=== PATIENT | female | born 1960 | race Caucasian/White ===

== ENCOUNTER → 2017-09-23 11:29 | Outpatient (CLI) | payer MEDICARE, SELFPAY ==
[2017-09-23 14:18] LABS: Hematocrit 39.7 % (37-47); Hemoglobin 13.2 g/dl (12.0-15.0); Mean Corp Hgb Conc 33.2 g/gl (32-36); Mean Corpuscular Hgb 31.1 pg (27.0-32.0); Mean Corpuscular Volume 93.6 fL (81-99); Mean Platelet Vol. 10.8 fl (6.2-12.0); Platelet Count 219 K/mm3 (150-450); RBC Distribution Width CV 13.3 % (11.6-14.6); RBC Distribution Width SD 44.1 fl (35.1-43.9); Red Blood Count 4.24 M/mm3 (4.2-5.4)
[2017-09-23 14:19] LABS: Scan Indicated on CBC? Y/N NO
[2017-09-23 14:28] LABS: Albumin, Serum 3.6 g/dL (3.2-5.0); BUN 15 mg/dL (7-18); BUN/Creat Ratio 12.9 RATIO (10-20); Calcium,Total 8.9 mg/dL (8.5-10.1); Chloride 104 mmol/L (98-107); Creatinine, Serum 1.16 mg/dL (0.55-1.02); EST Glomerular Filtration Rate 52 mL/min (>60); Est Glom Filt Rate - Afr Amer 62 mL/min (>60); Glucose 151 mg/dL (74-106); Phosphorus 2.9 mg/dL (2.5-4.9); Potassium 4.1 mmol/L (3.5-5.1); Sodium Level 140 mmol/L (136-145)
[2017-09-23 14:37] LABS: Vitamin D,25 Hydroxy 20.3 ng/mL (29.95-100.01)
[2017-09-23 14:43] LABS: Microalbumin,Random Urine 6.3 mg/L (NO RANGE EST.); Microalbumin:Creatinine Ratio 4.2 mg/g CRE (<30 mg/g CRE)
[2017-09-23 15:02] LABS: PTHIN 77.6 pg/mL (18.4-80.1)
== END ==
PROVIDERS: Family Provider Nurse Practitioner; PCP Nurse Practitioner; Visit Provider Internal Medicine Nephrology
DX: N18.3 Chronic kidney disease, stage 3 (moderate) (principal)
CPT/HCPCS: 36415; 80069; 82043; 82306; 82570; 83970; 85027

== ENCOUNTER → 2017-11-04 08:59 | Outpatient (CLI) | payer MEDICARE, SELFPAY ==
[2017-11-04 10:57] LABS: Hemoglobin A1c 6.1 % (4.2-6.3)
[2017-11-04 10:58] LABS: Cholesterol 180 mg/dL (200); High Density Lipoprotein 59 mg/dL; T4 Free Direct 1.17 ng/dL (0.76-1.46); Triglycerides 64 mg/dL; Very Low Density Lipoprotein 13 mg/dL (5-40)
== END ==
PROVIDERS: Family Provider Internal Medicine; PCP Internal Medicine; Visit Provider Internal Medicine
DX: E03.9 Hypothyroidism, unspecified (principal); E78.00 Pure hypercholesterolemia, unspecified; R73.03 Prediabetes
CPT/HCPCS: 36415; 80061; 83036; 84439; 84443

== ENCOUNTER → 2017-11-22 08:45 | Outpatient (CLI) | payer MEDICARE, SELFPAY | PROVIDERS: Family Provider Internal Medicine; PCP Internal Medicine; Visit Provider Surgery | DX: Z53.9 Procedure and treatment not carried out, unspecified reason (principal) ==

== ENCOUNTER → 2017-12-19 20:24 | Outpatient (CLI) | payer MEDICARE, SELFPAY ==
[2017-12-23 12:30] LABS: HPV APTIMA, High Risk Negative (Negative)
== END ==
PROVIDERS: Family Provider Internal Medicine; PCP Internal Medicine; Referring Provider Obstetrics & Gynecology; Visit Provider Obstetrics & Gynecology
DX: Z12.4 Encounter for screening for malignant neoplasm of cervix (principal)
CPT/HCPCS: 87624; 88175; G0145

== ENCOUNTER → 2018-05-16 15:48 | Outpatient (CLI) | payer MEDICARE, SELFPAY ==
[2018-03-21 14:07] VITALS: BMI 58.2
[2018-05-16 17:11] LABS: EXAGEN MAILED SPECIMEN
[2018-05-16 17:44] LABS: Color, Urine Yellow (Yellow); Glucose, Dipstick Normal (Normal); Ketone-Dipstick Negative (Negative); Leukocyte Esterase-Dipstick 25 /ul (Negative); Nitrite-Dipstick Negative (Negative); Occult Blood-Urine 25 /ul (Negative); Protein-Dipstick 15 mg/dl (Negative); Urine Bilirubin Dipstick Negative (Negative); Urine Clarity Clear (Clear); Urine Urobilinogen Normal (Normal)
[2018-05-16 17:49] LABS: Protein, Urine (Random) 7.9 mg/dL (<11.9); Protein:Creat Ratio 91 mg/g CRE (0-200)
[2018-05-16 18:04] LABS: Absolute Lymphocyte Count 1.77 X10^3/ul (0.83-4.51); Absolute Neutrophil Count 3.9 X10^3/uL (2.0-7.7); Basophil# 0.03 X10^3/uL; Basophil% 0.5 % (0-1); Eosinophil# 0.17 X10^3/uL; Eosinophils% 2.7 % (0-5); Hematocrit 40.6 % (37-47); Hemoglobin 13.1 g/dl (12.0-15.0); Lymphocyte # 1.77 X10^3/ul (4.0); Lymphocyte % 28.5 % (19-41); Mean Corp Hgb Conc 32.3 g/gl (32-36); Mean Corpuscular Hgb 30.5 pg (27.0-32.0); Mean Corpuscular Volume 94.4 fL (81-99); Mean Platelet Vol. 11.2 fl (6.2-12.0); Monocyte# 0.35 X10^3/uL; Monocyte% 5.6 % (0-10); Neutrophil # 3.87 X10^3/uL (2.7-7.7); Neutrophil % 62.5 % (47-70); Platelet Count 211 K/mm3 (150-450); RBC Distribution Width CV 13.5 % (11.6-14.6); White Blood Count 6.2 K/mm3 (4.4-11.0)
[2018-05-16 18:14] LABS: AST(SGOT) 24 U/L (15-37); Alanine Aminotransfer ALT/SGPT 35 U/L (13-56); Albumin, Serum 3.7 g/dL (3.2-5.0); Alkaline Phosphatase 107 U/L (45-117); Anion Gap 8 (5-15); BUN 19 mg/dL (7-18); BUN/Creat Ratio 17.9 RATIO (10-20); Calcium,Total 8.8 mg/dL (8.5-10.1); Chloride 105 mmol/L (98-107); Creatinine, Serum 1.06 mg/dL (0.55-1.02); EST Glomerular Filtration Rate 57 mL/min (>60); Est Glom Filt Rate - Afr Amer 69 mL/min (>60); Globulin 3.7 g/dL (2.2-4.2); Glucose 97 mg/dL (74-106); Potassium 3.8 mmol/L (3.5-5.1); Protein, Total 7.4 g/dL (6.4-8.2); Sodium Level 140 mmol/L (136-145)
[2018-05-16 18:19] LABS: POSITIVE COUNT NO; POSITIVE DIFFERENTIAL NO; POSITIVE MORPHOLOGY NO
[2018-05-19 16:59] LABS: HEPATITIS B SURFACE AG Negative (Negative); Hep B Surface Antibodies Non Reactive (.); Hep C Antibodies <0.1 s/co ratio (0.0-0.9)
== END ==
PROVIDERS: Family Provider Internal Medicine; PCP Internal Medicine; Referring Provider Internal Medicine Rheumatology; Visit Provider Internal Medicine Rheumatology
DX: M06.4 Inflammatory polyarthropathy (principal); R76.8 Other specified abnormal immunological findings in serum; M17.0 Bilateral primary osteoarthritis of knee; M51.36 Other intervertebral disc degeneration, lumbar region; M47.897 Other spondylosis, lumbosacral region; M79.7 Fibromyalgia; Z96.89 Presence of other specified functional implants
CPT/HCPCS: 36415; 80053; 81002; 82570; 84156; 85025; 86706; 86803; 87340

== ENCOUNTER → 2018-09-05 15:17 | Outpatient (CLI) | payer MEDICARE, SELFPAY ==
[2018-06-08 10:48] VITALS: BMI 58.2
[2018-09-05 17:27] LABS: Absolute Lymphocyte Count 1.95 X10^3/uL (0.83-4.51); Absolute Neutrophil Count 3.2 X10^3/uL (2.0-7.7); Basophil# 0.06 X10^3/uL; Eosinophil# 0.21 X10^3/uL; Eosinophils% 3.6 % (0-5); Hematocrit 39.8 % (37-47); Hemoglobin 13.1 g/dL (12.0-15.0); Lymphocyte # 1.95 X10^3/ul (4.0); Lymphocyte % 33.7 % (19-41); Mean Corp Hgb Conc 32.9 g/dL (32-36); Mean Corpuscular Hgb 30.3 pg (27.0-32.0); Mean Corpuscular Volume 92.1 fL (81-99); Mean Platelet Vol. 10.9 fl (6.2-12.0); Monocyte# 0.38 X10^3/uL; Monocyte% 6.6 % (0-10); NRBC Flagged by Analyzer 0 % (0-5); Neutrophil # 3.17 X10^3/uL (2.7-7.7); Neutrophil % 54.8 % (47-70); Platelet Count 229 K/mm3 (150-450); RBC Distribution Width CV 13.1 % (11.6-14.6); RBC Distribution Width SD 44.5 fl (35.1-43.9); Red Blood Count 4.32 M/mm3 (4.2-5.4); White Blood Count 5.8 K/mm3 (4.4-11.0)
[2018-09-05 18:09] LABS: AST(SGOT) 15 U/L (15-37); Alanine Aminotransfer ALT/SGPT 27 U/L (13-56); Albumin, Serum 3.7 g/dL (3.2-5.0); Alkaline Phosphatase 112 U/L (45-117); Anion Gap 10 (5-15); BUN 19 mg/dL (7-18); BUN/Creat Ratio 17.3 RATIO (10-20); Calcium,Total 9.4 mg/dL (8.5-10.1); Chloride 105 mmol/L (98-107); EST Glomerular Filtration Rate 55 mL/min (>60); Est Glom Filt Rate - Afr Amer 66 mL/min (>60); Globulin 3.6 g/dL (2.2-4.2); Glucose 100 mg/dL (74-106); Potassium 3.9 mmol/L (3.5-5.1); Protein, Total 7.3 g/dL (6.4-8.2); Sodium Level 141 mmol/L (136-145)
== END ==
PROVIDERS: Family Provider Internal Medicine; PCP Internal Medicine; Referring Provider Internal Medicine Rheumatology; Visit Provider Internal Medicine Rheumatology
DX: M06.4 Inflammatory polyarthropathy (principal); R76.8 Other specified abnormal immunological findings in serum; M79.7 Fibromyalgia; M17.0 Bilateral primary osteoarthritis of knee; M21.40 Flat foot [pes planus] (acquired), unspecified foot; N18.9 Chronic kidney disease, unspecified; K76.0 Fatty (change of) liver, not elsewhere classified; E03.9 Hypothyroidism, unspecified; M51.36 Other intervertebral disc degeneration, lumbar region; M47.897 Other spondylosis, lumbosacral region; Z96.89 Presence of other specified functional implants
CPT/HCPCS: 36415; 80053; 85025

== ENCOUNTER → 2019-01-01 11:08 | Outpatient (CLI) | payer MEDICARE, SELFPAY ==
[2018-06-08 10:48] VITALS: BMI 58.2
[2019-01-01 12:33] LABS: Absolute Lymphocyte Count 1.59 X10^3/uL (0.83-4.51); Absolute Neutrophil Count 3.8 X10^3/uL (2.0-7.7); Basophil# 0.05 X10^3/uL; Basophil% 0.8 % (0-1); Eosinophil# 0.19 X10^3/uL; Eosinophils% 3.2 % (0-5); Hematocrit 41.3 % (37-47); Hemoglobin 13.3 g/dL (12.0-15.0); Lymphocyte # 1.59 X10^3/ul (4.0); Lymphocyte % 26.5 % (19-41); Mean Corp Hgb Conc 32.2 g/dL (32-36); Mean Corpuscular Hgb 30.6 pg (27.0-32.0); Mean Corpuscular Volume 94.9 fL (81-99); Mean Platelet Vol. 10.5 fl (6.2-12.0); Monocyte# 0.38 X10^3/uL; Monocyte% 6.3 % (0-10); NRBC Flagged by Analyzer 0 % (0-5); Neutrophil # 3.77 X10^3/uL (2.7-7.7); Neutrophil % 62.9 % (47-70); Platelet Count 229 K/mm3 (150-450); RBC Distribution Width CV 13.1 % (11.6-14.6); RBC Distribution Width SD 45.6 fl (35.1-43.9); Red Blood Count 4.35 M/mm3 (4.2-5.4)
[2019-01-01 13:14] LABS: AST(SGOT) 19 U/L (15-37); Alanine Aminotransfer ALT/SGPT 25 U/L (13-56); Albumin, Serum 3.5 g/dL (3.2-5.0); Alkaline Phosphatase 101 U/L (45-117); Anion Gap 6 (5-15); BUN 19 mg/dL (7-18); BUN/Creat Ratio 16.4 RATIO (10-20); Calcium,Total 8.9 mg/dL (8.5-10.1); Chloride 105 mmol/L (98-107); Creatinine, Serum 1.16 mg/dL (0.55-1.02); EST Glomerular Filtration Rate 51 mL/min (>60); Est Glom Filt Rate - Afr Amer 62 mL/min (>60); Globulin 3.5 g/dL (2.2-4.2); Glucose 132 mg/dL (74-106); Sodium Level 142 mmol/L (136-145)
== END ==
PROVIDERS: Family Provider Internal Medicine; PCP Internal Medicine; Referring Provider Internal Medicine Rheumatology; Visit Provider Internal Medicine Rheumatology
DX: M06.4 Inflammatory polyarthropathy (principal); R76.8 Other specified abnormal immunological findings in serum; M79.7 Fibromyalgia; M17.0 Bilateral primary osteoarthritis of knee; M21.40 Flat foot [pes planus] (acquired), unspecified foot; N18.9 Chronic kidney disease, unspecified; K76.0 Fatty (change of) liver, not elsewhere classified; E03.9 Hypothyroidism, unspecified; M51.36 Other intervertebral disc degeneration, lumbar region; M47.897 Other spondylosis, lumbosacral region; Z96.89 Presence of other specified functional implants
CPT/HCPCS: 36415; 80053; 85025

== ENCOUNTER → 2019-02-27 11:13 | Outpatient (CLI) | payer MEDICARE, SELFPAY ==
[2018-06-08 10:48] VITALS: BMI 58.2
[2019-02-27 12:24] LABS: Absolute Lymphocyte Count 1.95 X10^3/uL (0.83-4.51); Absolute Neutrophil Count 4.1 X10^3/uL (2.0-7.7); Basophil# 0.06 X10^3/uL; Basophil% 0.9 % (0-1); Hematocrit 40.6 % (37-47); Hemoglobin 13.2 g/dL (12.0-15.0); Lymphocyte # 1.95 X10^3/ul (4.0); Lymphocyte % 29.4 % (19-41); Mean Corp Hgb Conc 32.5 g/dL (32-36); Mean Corpuscular Hgb 31.1 pg (27.0-32.0); Mean Corpuscular Volume 95.8 fL (81-99); Mean Platelet Vol. 10.4 fl (6.2-12.0); Monocyte# 0.33 X10^3/uL; NRBC Flagged by Analyzer 0 % (0-5); Neutrophil # 4.06 X10^3/uL (2.7-7.7); Neutrophil % 61.2 % (47-70); Platelet Count 236 K/mm3 (150-450); RBC Distribution Width CV 14.3 % (11.6-14.6); RBC Distribution Width SD 49.6 fl (35.1-43.9); Red Blood Count 4.24 M/mm3 (4.2-5.4); White Blood Count 6.6 K/mm3 (4.4-11.0)
[2019-02-27 12:52] LABS: AST(SGOT) 18 U/L (15-37); Alanine Aminotransfer ALT/SGPT 32 U/L (13-56); Albumin, Serum 3.7 g/dL (3.2-5.0); Alkaline Phosphatase 107 U/L (45-117); Anion Gap 3 (5-15); BUN 23 mg/dL (7-18); BUN/Creat Ratio 18.4 RATIO (10-20); Calcium,Total 8.7 mg/dL (8.5-10.1); Chloride 104 mmol/L (98-107); Creatinine, Serum 1.25 mg/dL (0.55-1.02); EST Glomerular Filtration Rate 47 mL/min (>60); Est Glom Filt Rate - Afr Amer 57 mL/min (>60); Globulin 3.6 g/dL (2.2-4.2); Glucose 113 mg/dL (74-106); Potassium 3.9 mmol/L (3.5-5.1); Protein, Total 7.3 g/dL (6.4-8.2); Sodium Level 139 mmol/L (136-145)
== END ==
PROVIDERS: Family Provider Internal Medicine; PCP Internal Medicine; Referring Provider Internal Medicine Rheumatology; Visit Provider Internal Medicine Rheumatology
DX: M06.4 Inflammatory polyarthropathy (principal); R76.8 Other specified abnormal immunological findings in serum; M79.7 Fibromyalgia; M17.0 Bilateral primary osteoarthritis of knee; M21.40 Flat foot [pes planus] (acquired), unspecified foot; N18.9 Chronic kidney disease, unspecified; K76.0 Fatty (change of) liver, not elsewhere classified; E03.9 Hypothyroidism, unspecified; M51.36 Other intervertebral disc degeneration, lumbar region; M47.897 Other spondylosis, lumbosacral region; Z96.89 Presence of other specified functional implants
CPT/HCPCS: 36415; 80053; 85025

== ENCOUNTER → 2019-05-09 14:29 | Outpatient (CLI) | payer MEDICARE, SELFPAY ==
[2018-06-08 10:48] VITALS: BMI 58.2
[2019-05-09 15:46] LABS: Absolute Lymphocyte Count 2.09 X10^3/uL (0.83-4.51); Absolute Neutrophil Count 3.5 X10^3/uL (2.0-7.7); Basophil# 0.05 X10^3/uL; Basophil% 0.8 % (0-1); Eosinophils% 3.2 % (0-5); Hematocrit 40.3 % (37-47); Lymphocyte # 2.09 X10^3/ul (4.0); Lymphocyte % 33.2 % (19-41); Mean Corp Hgb Conc 32.3 g/dL (32-36); Mean Corpuscular Hgb 31.3 pg (27.0-32.0); Mean Corpuscular Volume 96.9 fL (81-99); Mean Platelet Vol. 10.9 fl (6.2-12.0); Monocyte# 0.41 X10^3/uL; Monocyte% 6.5 % (0-10); NRBC Flagged by Analyzer 0 % (0-5); Neutrophil # 3.53 X10^3/uL (2.7-7.7); Platelet Count 221 K/mm3 (150-450); RBC Distribution Width CV 13.1 % (11.6-14.6); RBC Distribution Width SD 46.5 fl (35.1-43.9); Red Blood Count 4.16 M/mm3 (4.2-5.4); White Blood Count 6.3 K/mm3 (4.4-11.0)
[2019-05-09 16:11] LABS: AST(SGOT) 20 U/L (15-37); Alanine Aminotransfer ALT/SGPT 27 U/L (13-56); Albumin, Serum 3.8 g/dL (3.2-5.0); Alkaline Phosphatase 104 U/L (45-117); Anion Gap 3 (5-15); BUN 17 mg/dL (7-18); BUN/Creat Ratio 15.3 RATIO (10-20); Calcium,Total 8.7 mg/dL (8.5-10.1); Chloride 105 mmol/L (98-107); Creatinine, Serum 1.11 mg/dL (0.55-1.02); EST Glomerular Filtration Rate 54 mL/min (>60); Est Glom Filt Rate - Afr Amer 65 mL/min (>60); Globulin 3.8 g/dL (2.2-4.2); Glucose 99 mg/dL (74-106); Potassium 3.8 mmol/L (3.5-5.1); Protein, Total 7.6 g/dL (6.4-8.2); Sodium Level 140 mmol/L (136-145)
== END ==
PROVIDERS: PCP Internal Medicine; Referring Provider Internal Medicine Rheumatology; Visit Provider Internal Medicine Rheumatology
DX: M06.4 Inflammatory polyarthropathy (principal); R76.8 Other specified abnormal immunological findings in serum; M79.7 Fibromyalgia; M17.0 Bilateral primary osteoarthritis of knee; M21.40 Flat foot [pes planus] (acquired), unspecified foot; N18.9 Chronic kidney disease, unspecified; K76.0 Fatty (change of) liver, not elsewhere classified; E03.9 Hypothyroidism, unspecified; M51.36 Other intervertebral disc degeneration, lumbar region; M47.897 Other spondylosis, lumbosacral region; Z96.89 Presence of other specified functional implants
CPT/HCPCS: 36415; 80053; 85025

== ENCOUNTER → 2019-07-12 16:19 | Outpatient (CLI) | payer MEDICARE, SELFPAY ==
[2019-07-12 15:15] VITALS: BMI 58.2
[2019-07-12 17:28] LABS: Microalbumin,Random Urine < 5.0 mg/L (NO RANGE EST.)
[2019-07-12 17:30] LABS: Cholesterol 213 mg/dL (200); High Density Lipoprotein 69 mg/dL; Thyroid Stim Hormone (TSH) 7.48 uIU/mL (0.358-3.74); Triglycerides 113 mg/dL; Very Low Density Lipoprotein 23 mg/dL (5-40)
== END ==
PROVIDERS: PCP Internal Medicine; Referring Provider Internal Medicine; Visit Provider Internal Medicine
DX: E11.9 Type 2 diabetes mellitus without complications (principal); E03.9 Hypothyroidism, unspecified
CPT/HCPCS: 80061; 82043; 82570; 84443

== ENCOUNTER → 2019-09-12 20:00 | Outpatient (CLI) | payer MEDICARE, SELFPAY ==
[2019-08-08 13:06] VITALS: BMI 58.2
== END ==
PROVIDERS: PCP Internal Medicine; Visit Provider Internal Medicine
DX: G47.33 Obstructive sleep apnea (adult) (pediatric) (principal); G47.10 Hypersomnia, unspecified
CPT/HCPCS: 95810

== ENCOUNTER → 2019-10-17 10:52 | Outpatient (CLI) | payer MEDICARE, SELFPAY ==
[2019-09-28 08:53] VITALS: BMI 61.4
[2019-10-17 12:37] LABS: Absolute Lymphocyte Count 1.66 X10^3/uL (0.83-4.51); Absolute Neutrophil Count 3.7 X10^3/uL (2.0-7.7); Basophil# 0.05 X10^3/uL; Basophil% 0.8 % (0-1); Eosinophil# 0.26 X10^3/uL; Eosinophils% 4.3 % (0-5); Hematocrit 39.6 % (37-47); Hemoglobin 13.2 g/dL (12.0-15.0); Lymphocyte # 1.66 X10^3/ul (4.0); Lymphocyte % 27.2 % (19-41); Mean Corp Hgb Conc 33.3 g/dL (32-36); Mean Corpuscular Hgb 31.4 pg (27.0-32.0); Mean Corpuscular Volume 94.3 fL (81-99); Mean Platelet Vol. 10.6 fl (6.2-12.0); Monocyte# 0.38 X10^3/uL; Monocyte% 6.2 % (0-10); NRBC Flagged by Analyzer 0 % (0-5); Neutrophil # 3.73 X10^3/uL (2.7-7.7); Neutrophil % 61.2 % (47-70); Platelet Count 223 K/mm3 (150-450); RBC Distribution Width CV 13.2 % (11.6-14.6); RBC Distribution Width SD 45.1 fl (35.1-43.9); White Blood Count 6.1 K/mm3 (4.4-11.0)
[2019-10-17 13:14] LABS: AST(SGOT) 16 U/L (15-37); Alanine Aminotransfer ALT/SGPT 27 U/L (13-56); Albumin, Serum 3.7 g/dL (3.2-5.0); Alkaline Phosphatase 100 U/L (45-117); Anion Gap 5 (5-15); BUN 19 mg/dL (7-18); BUN/Creat Ratio 17.6 RATIO (10-20); Chloride 107 mmol/L (98-107); Creatinine, Serum 1.08 mg/dL (0.55-1.02); EST Glomerular Filtration Rate 56 mL/min (>60); Est Glom Filt Rate - Afr Amer 67 mL/min (>60); Globulin 3.6 g/dL (2.2-4.2); Glucose 134 mg/dL (74-106); Potassium 3.6 mmol/L (3.5-5.1); Protein, Total 7.3 g/dL (6.4-8.2); Sodium Level 141 mmol/L (136-145)
== END ==
PROVIDERS: PCP Internal Medicine; Referring Provider Internal Medicine Rheumatology; Visit Provider Internal Medicine Rheumatology
DX: M06.4 Inflammatory polyarthropathy (principal); R76.8 Other specified abnormal immunological findings in serum; M79.7 Fibromyalgia; M17.0 Bilateral primary osteoarthritis of knee; M21.40 Flat foot [pes planus] (acquired), unspecified foot; N18.9 Chronic kidney disease, unspecified; K76.0 Fatty (change of) liver, not elsewhere classified; E03.9 Hypothyroidism, unspecified
CPT/HCPCS: 36415; 80053; 85025

== ENCOUNTER → 2020-01-10 10:14 | Outpatient (CLI) | payer MEDICARE, SELFPAY ==
[2020-01-10 12:15] LABS: Absolute Lymphocyte Count 1.45 X10^3/uL (0.83-4.51); Basophil# 0.06 X10^3/uL; Eosinophil# 0.23 X10^3/uL; Eosinophils% 3.8 % (0-5); Hematocrit 41.2 % (37-47); Hemoglobin 13.3 g/dL (12.0-15.0); Lymphocyte # 1.45 X10^3/ul (4.0); Lymphocyte % 23.9 % (19-41); Mean Corp Hgb Conc 32.3 g/dL (32-36); Mean Corpuscular Hgb 30.5 pg (27.0-32.0); Mean Corpuscular Volume 94.5 fL (81-99); Mean Platelet Vol. 10.9 fl (6.2-12.0); Monocyte# 0.28 X10^3/uL; Monocyte% 4.6 % (0-10); NRBC Flagged by Analyzer 0 % (0-5); Neutrophil # 4.03 X10^3/uL (2.7-7.7); Neutrophil % 66.5 % (47-70); Platelet Count 237 K/mm3 (150-450); RBC Distribution Width CV 13.1 % (11.6-14.6); RBC Distribution Width SD 44.9 fl (35.1-43.9); Red Blood Count 4.36 M/mm3 (4.2-5.4); White Blood Count 6.1 K/mm3 (4.4-11.0)
[2020-01-10 12:40] LABS: ALB/GLOB Ratio 1.1 RATIO (0.9-2.4); AST(SGOT) 16 U/L (15-37); Alanine Aminotransfer ALT/SGPT 26 U/L (13-56); Albumin, Serum 3.8 g/dL (3.2-5.0); Alkaline Phosphatase 109 U/L (45-117); Anion Gap 6 (5-15); BUN 18 mg/dL (7-18); BUN/Creat Ratio 17.1 RATIO (10-20); Calcium,Total 8.8 mg/dL (8.5-10.1); Chloride 106 mmol/L (98-107); Creatinine, Serum 1.05 mg/dL (0.55-1.02); EST Glomerular Filtration Rate 57 mL/min (>60); Est Glom Filt Rate - Afr Amer 69 mL/min (>60); Globulin 3.5 g/dL (2.2-4.2); Glucose 145 mg/dL (74-106); Potassium 3.9 mmol/L (3.5-5.1); Protein, Total 7.3 g/dL (6.4-8.2); Sodium Level 139 mmol/L (136-145)
== END ==
PROVIDERS: PCP Internal Medicine; Referring Provider Internal Medicine Rheumatology; Visit Provider Internal Medicine Rheumatology
DX: M06.4 Inflammatory polyarthropathy (principal); M79.7 Fibromyalgia; M17.0 Bilateral primary osteoarthritis of knee; M21.40 Flat foot [pes planus] (acquired), unspecified foot; N18.9 Chronic kidney disease, unspecified; K76.0 Fatty (change of) liver, not elsewhere classified; E03.9 Hypothyroidism, unspecified; M51.36 Other intervertebral disc degeneration, lumbar region; M47.897 Other spondylosis, lumbosacral region; Z96.89 Presence of other specified functional implants
CPT/HCPCS: 36415; 80053; 85025

== ENCOUNTER → 2020-06-04 10:35 | Outpatient (CLI) | payer MEDICARE, SELFPAY ==
[2020-06-04 09:58] VITALS: BMI 62.5
[2020-06-04 12:50] LABS: Absolute Lymphocyte Count 2.34 X10^3/uL (0.83-4.51); Absolute Neutrophil Count 4.3 X10^3/uL (2.0-7.7); Basophil# 0.05 X10^3/uL; Basophil% 0.7 % (0-1); Eosinophil# 0.31 X10^3/uL; Eosinophils% 4.1 % (0-5); Hematocrit 43.5 % (37-47); Hemoglobin 13.9 g/dL (12.0-15.0); Lymphocyte # 2.34 X10^3/ul (0.83-4.51); Mean Corpuscular Volume 96.9 fL (81-99); Mean Platelet Vol. 11.3 fl (6.2-12.0); Monocyte# 0.53 X10^3/uL; NRBC Flagged by Analyzer 0 % (0-5); Neutrophil % 56.8 % (47-70); Platelet Count 256 K/mm3 (150-450); RBC Distribution Width CV 13.3 % (11.6-14.6); RBC Distribution Width SD 47.7 fl (35.1-43.9); Red Blood Count 4.49 M/mm3 (4.2-5.4); White Blood Count 7.6 K/mm3 (4.4-11.0)
[2020-06-04 13:17] LABS: AST(SGOT) 19 U/L (15-37); Alanine Aminotransfer ALT/SGPT 33 U/L (13-56); Albumin, Serum 3.9 g/dL (3.2-5.0); Alkaline Phosphatase 121 U/L (45-117); Anion Gap 3 (5-15); BUN 19 mg/dL (7-18); BUN/Creat Ratio 17.3 RATIO (10-20); Calcium,Total 8.9 mg/dL (8.5-10.1); Chloride 105 mmol/L (98-107); Cholesterol 208 mg/dL (200); EST Glomerular Filtration Rate 54 mL/min (>60); Est Glom Filt Rate - Afr Amer 66 mL/min (>60); Globulin 3.9 g/dL (2.2-4.2); Glucose 121 mg/dL (74-106); High Density Lipoprotein 73 mg/dL; Potassium 3.6 mmol/L (3.5-5.1); Protein, Total 7.8 g/dL (6.4-8.2); Sodium Level 139 mmol/L (136-145); Thyroid Stim Hormone (TSH) 1.81 uIU/mL (0.358-3.74); Triglycerides 143 mg/dL; Very Low Density Lipoprotein 29 mg/dL (5-40)
[2020-06-04 13:23] LABS: Microalbumin,Random Urine 7.8 mg/L (NO RANGE EST.); Microalbumin:Creatinine Ratio 4.7 mg/g CRE (<30 mg/g CRE)
== END ==
PROVIDERS: PCP Internal Medicine; Referring Provider Nurse Practitioner Family; Visit Provider Nurse Practitioner Family
DX: E11.22 Type 2 diabetes mellitus with diabetic chronic kidney disease (principal); N18.30 Chronic kidney disease, stage 3 unspecified; E03.9 Hypothyroidism, unspecified; E66.01 Morbid (severe) obesity due to excess calories
CPT/HCPCS: 36415; 80053; 80061; 82043; 82570; 84443; 85025

== ENCOUNTER → 2020-08-27 12:15 | Outpatient (CLI) | payer MEDICARE, SELFPAY ==
[2020-06-04 09:58] VITALS: BMI 62.5
[2020-08-27 15:03] LABS: Absolute Lymphocyte Count 2.27 X10^3/uL (0.83-4.51); Absolute Neutrophil Count 4.5 X10^3/uL (2.0-7.7); Basophil# 0.07 X10^3/uL; Basophil% 0.9 % (0-1); Eosinophil# 0.27 X10^3/uL; Eosinophils% 3.5 % (0-5); Hematocrit 42.9 % (37-47); Hemoglobin 13.8 g/dL (12.0-15.0); Lymphocyte # 2.27 X10^3/ul (0.83-4.51); Lymphocyte % 29.7 % (19-41); Mean Corp Hgb Conc 32.2 g/dL (32-36); Mean Corpuscular Hgb 29.7 pg (27.0-32.0); Mean Corpuscular Volume 92.3 fL (81-99); Mean Platelet Vol. 10.9 fl (6.2-12.0); Monocyte# 0.52 X10^3/uL; Monocyte% 6.8 % (0-10); NRBC Flagged by Analyzer 0 % (0-5); Neutrophil # 4.51 X10^3/uL (2.7-7.7); Platelet Count 245 K/mm3 (150-450); RBC Distribution Width CV 13.2 % (11.6-14.6); RBC Distribution Width SD 44.5 fl (35.1-43.9); Red Blood Count 4.65 M/mm3 (4.2-5.4); White Blood Count 7.7 K/mm3 (4.4-11.0)
[2020-08-27 15:27] LABS: ALB/GLOB Ratio 0.9 RATIO (0.9-2.4); AST(SGOT) 18 U/L (15-37); Alanine Aminotransfer ALT/SGPT 29 U/L (13-56); Albumin, Serum 3.5 g/dL (3.2-5.0); Alkaline Phosphatase 132 U/L (45-117); Anion Gap 7 (5-15); BUN 19 mg/dL (7-18); BUN/Creat Ratio 17.3 RATIO (10-20); Calcium,Total 9.3 mg/dL (8.5-10.1); Chloride 105 mmol/L (98-107); EST Glomerular Filtration Rate 54 mL/min (>60); Est Glom Filt Rate - Afr Amer 66 mL/min (>60); Glucose 149 mg/dL (74-106); Potassium 3.9 mmol/L (3.5-5.1); Protein, Total 7.5 g/dL (6.4-8.2); Sodium Level 140 mmol/L (136-145)
== END ==
PROVIDERS: PCP Internal Medicine; Referring Provider Internal Medicine Rheumatology; Visit Provider Internal Medicine Rheumatology
DX: M06.4 Inflammatory polyarthropathy (principal); R76.8 Other specified abnormal immunological findings in serum; M79.7 Fibromyalgia; M17.0 Bilateral primary osteoarthritis of knee; M21.40 Flat foot [pes planus] (acquired), unspecified foot; N18.9 Chronic kidney disease, unspecified; K76.0 Fatty (change of) liver, not elsewhere classified; E03.9 Hypothyroidism, unspecified; M51.36 Other intervertebral disc degeneration, lumbar region; M47.897 Other spondylosis, lumbosacral region; Z96.89 Presence of other specified functional implants
CPT/HCPCS: 36415; 80053; 85025

== ENCOUNTER → 2020-09-22 14:51 | Outpatient (CLI) | payer MEDICARE, SELFPAY ==
[2020-09-03 10:05] VITALS: BMI 60.7
--- NOTE | 2020-09-22 14:54 | BI_ITS ---
MAMMOGRAPHY - BILATERAL SCREENING REASON FOR EXAM: Female, 60 years old. Routine annual screening examination. PERTINENT HISTORY: TECHNIQUE: Digital bilateral breast bertha (3D mammographic acquisition) in the CC and MLO projections. 2-D mediolateral oblique (MLO) and craniocaudad (CC) views of both breasts were obtained. CAD: Full Field Digital Mammography with Computer Added Detection was performed. COMPARISON: Previous mammogram obtained on 05/26/2016 FINDINGS: Breast Composition: Scattered breast parenchyma superimposed upon fatty degeneration of breast There are no dominant masses or suspicious calcifications. No other significant abnormalities are identified. BI/SCRN MAMM (CAD)W/BERTHA BILAT IMPRESSION: Stable bilateral screening mammogram. Yearly follow-up mammogram recommended. (A) ASSESSMENT CATEGORY: BIRADS Category 1: Negative. A letter regarding these results will be sent to the patient by the facility within 30 days. Approximately 10% of breast cancers are not detected by mammography. A normal mammogram should not delay biopsy of a clinically suspicious abnormality. [id number] Electronically Signed: Иван Karimi DO at 14:53 EDT Tel , Service support ,
== END ==
PROVIDERS: PCP Internal Medicine; Referring Provider Internal Medicine; Visit Provider Internal Medicine
DX: Z12.31 Encounter for screening mammogram for malignant neoplasm of breast (principal)
CPT/HCPCS: 77063; 77067

== ENCOUNTER → 2020-10-28 10:14 | Outpatient (CLI) | payer MEDICARE, SELFPAY ==
[2020-09-03 10:05] VITALS: BMI 60.7
[2020-10-28 12:16] LABS: Absolute Lymphocyte Count 1.86 X10^3/uL (0.83-4.51); Absolute Neutrophil Count 2.7 X10^3/uL (2.0-7.7); Basophil# 0.05 X10^3/uL; Eosinophil# 0.24 X10^3/uL; Eosinophils% 4.6 % (0-5); Hematocrit 40.2 % (37-47); Hemoglobin 13.6 g/dL (12.0-15.0); Lymphocyte # 1.86 X10^3/ul (0.83-4.51); Lymphocyte % 35.5 % (19-41); Mean Corp Hgb Conc 33.8 g/dL (32-36); Mean Corpuscular Hgb 30.8 pg (27.0-32.0); Mean Corpuscular Volume 91.2 fL (81-99); Mean Platelet Vol. 10.8 fl (6.2-12.0); Monocyte# 0.39 X10^3/uL; Monocyte% 7.4 % (0-10); NRBC Flagged by Analyzer 0 % (0-5); Neutrophil # 2.68 X10^3/uL (2.7-7.7); Neutrophil % 51.1 % (47-70); Platelet Count 214 K/mm3 (150-450); RBC Distribution Width CV 13.5 % (11.6-14.6); RBC Distribution Width SD 45.7 fl (35.1-43.9); Red Blood Count 4.41 M/mm3 (4.2-5.4); White Blood Count 5.2 K/mm3 (4.4-11.0)
[2020-10-28 12:33] LABS: ALB/GLOB Ratio 0.8 RATIO (0.9-2.4); AST(SGOT) 22 U/L (15-37); Alanine Aminotransfer ALT/SGPT 35 U/L (13-56); Albumin, Serum 3.2 g/dL (3.2-5.0); Alkaline Phosphatase 108 U/L (45-117); Anion Gap 6 (5-15); BUN 17 mg/dL (7-18); BUN/Creat Ratio 15.6 RATIO (10-20); Calcium,Total 8.7 mg/dL (8.5-10.1); Chloride 107 mmol/L (98-107); Creatinine, Serum 1.09 mg/dL (0.55-1.02); EST Glomerular Filtration Rate 55 mL/min (>60); Est Glom Filt Rate - Afr Amer 66 mL/min (>60); Globulin 3.8 g/dL (2.2-4.2); Glucose 155 mg/dL (74-106); Potassium 3.9 mmol/L (3.5-5.1); Sodium Level 140 mmol/L (136-145)
== END ==
PROVIDERS: PCP Internal Medicine; Referring Provider Internal Medicine Rheumatology; Visit Provider Internal Medicine Rheumatology
DX: M06.4 Inflammatory polyarthropathy (principal); R76.8 Other specified abnormal immunological findings in serum; M79.7 Fibromyalgia; M17.0 Bilateral primary osteoarthritis of knee; M21.40 Flat foot [pes planus] (acquired), unspecified foot; N18.9 Chronic kidney disease, unspecified; K76.0 Fatty (change of) liver, not elsewhere classified; E03.9 Hypothyroidism, unspecified; Z96.89 Presence of other specified functional implants; M51.36 Other intervertebral disc degeneration, lumbar region; M47.897 Other spondylosis, lumbosacral region
CPT/HCPCS: 36415; 80053; 85025

== ENCOUNTER → 2021-01-20 13:18 | Outpatient (CLI) | payer MEDICARE, SELFPAY ==
[2021-01-20 15:04] LABS: Absolute Lymphocyte Count 2.14 X10^3/uL (0.83-4.51); Absolute Neutrophil Count 3.8 X10^3/uL (2.0-7.7); Basophil# 0.08 X10^3/uL; Basophil% 1.1 % (0-1); Eosinophil# 0.38 X10^3/uL; Eosinophils% 5.5 % (0-5); Hemoglobin 13.8 g/dL (12.0-15.0); Lymphocyte # 2.14 X10^3/ul (0.83-4.51); Lymphocyte % 30.7 % (19-41); Mean Corp Hgb Conc 32.9 g/dL (32-36); Mean Corpuscular Hgb 30.5 pg (27.0-32.0); Mean Corpuscular Volume 92.7 fL (81-99); Mean Platelet Vol. 10.7 fl (6.2-12.0); Monocyte# 0.52 X10^3/uL; Monocyte% 7.5 % (0-10); NRBC Flagged by Analyzer 0 % (0-5); Neutrophil # 3.84 X10^3/uL (2.7-7.7); Neutrophil % 55.1 % (47-70); Platelet Count 210 K/mm3 (150-450); RBC Distribution Width CV 13.3 % (11.6-14.6); RBC Distribution Width SD 45.4 fl (35.1-43.9); Red Blood Count 4.53 M/mm3 (4.2-5.4)
[2021-01-20 15:34] LABS: ALB/GLOB Ratio 0.9 RATIO (0.9-2.4); AST(SGOT) 28 U/L (15-37); Alanine Aminotransfer ALT/SGPT 31 U/L (13-56); Albumin, Serum 3.6 g/dL (3.2-5.0); Alkaline Phosphatase 117 U/L (45-117); Anion Gap 6 (5-15); BUN 17 mg/dL (7-18); BUN/Creat Ratio 16.7 RATIO (10-20); Calcium,Total 9.3 mg/dL (8.5-10.1); Chloride 106 mmol/L (98-107); Creatinine, Serum 1.02 mg/dL (0.55-1.02); EST Glomerular Filtration Rate 59 mL/min (>60); Est Glom Filt Rate - Afr Amer 72 mL/min (>60); Globulin 3.8 g/dL (2.2-4.2); Glucose 99 mg/dL (74-106); Protein, Total 7.4 g/dL (6.4-8.2); Sodium Level 141 mmol/L (136-145)
== END ==
PROVIDERS: PCP Internal Medicine; Referring Provider Internal Medicine Rheumatology; Visit Provider Internal Medicine Rheumatology
DX: M06.4 Inflammatory polyarthropathy (principal); R76.8 Other specified abnormal immunological findings in serum; M79.7 Fibromyalgia; M17.0 Bilateral primary osteoarthritis of knee; M21.40 Flat foot [pes planus] (acquired), unspecified foot; N18.9 Chronic kidney disease, unspecified; K76.0 Fatty (change of) liver, not elsewhere classified; E03.9 Hypothyroidism, unspecified; M51.36 Other intervertebral disc degeneration, lumbar region; M47.897 Other spondylosis, lumbosacral region; Z96.89 Presence of other specified functional implants
CPT/HCPCS: 36415; 80053; 85025

== ENCOUNTER 2021-04-30 10:35 | Outpatient (CLI) | payer MEDICARE, SELFPAY ==
[2021-04-30 12:18] LABS: Absolute Lymphocyte Count 1.41 X10^3/uL (0.83-4.51); Absolute Neutrophil Count 3.6 X10^3/uL (2.0-7.7); Basophil# 0.08 X10^3/uL; Basophil% 1.4 % (0-1); Eosinophils% 5.2 % (0-5); Hematocrit 41.5 % (37-47); Hemoglobin 13.7 g/dL (12.0-15.0); Lymphocyte # 1.41 X10^3/ul (0.83-4.51); Lymphocyte % 24.6 % (19-41); Mean Corpuscular Hgb 30.9 pg (27.0-32.0); Mean Corpuscular Volume 93.5 fL (81-99); Mean Platelet Vol. 10.9 fl (6.2-12.0); Monocyte% 5.2 % (0-10); NRBC Flagged by Analyzer 0 % (0-5); Neutrophil # 3.63 X10^3/uL (2.7-7.7); Neutrophil % 63.3 % (47-70); Platelet Count 206 K/mm3 (150-450); RBC Distribution Width CV 13.4 % (11.6-14.6); Red Blood Count 4.44 M/mm3 (4.2-5.4); White Blood Count 5.7 K/mm3 (4.4-11.0)
[2021-04-30 13:04] LABS: ALB/GLOB Ratio 0.9 RATIO (0.9-2.4); AST(SGOT) 19 U/L (15-37); Alanine Aminotransfer ALT/SGPT 27 U/L (13-56); Albumin, Serum 3.3 g/dL (3.2-5.0); Alkaline Phosphatase 115 U/L (45-117); Anion Gap 4 (5-15); BUN 14 mg/dL (7-18); BUN/Creat Ratio 12.6 RATIO (10-20); Chloride 105 mmol/L (98-107); Cholesterol 199 mg/dL (200); Creatinine, Serum 1.11 mg/dL (0.55-1.02); EST Glomerular Filtration Rate 54 mL/min (>60); Est Glom Filt Rate - Afr Amer 65 mL/min (>60); Globulin 3.5 g/dL (2.2-4.2); Glucose 271 mg/dL (74-106); High Density Lipoprotein 60 mg/dL; Potassium 3.7 mmol/L (3.5-5.1); Protein, Total 6.8 g/dL (6.4-8.2); Sodium Level 139 mmol/L (136-145); Thyroid Stim Hormone (TSH) 5.42 uIU/mL (0.358-3.74); Triglycerides 98 mg/dL; Very Low Density Lipoprotein 20 mg/dL (5-40)
== END 2021-04-30 23:59 | disposition home or self-care (01) ==
LOC: MTLAB 10:37
PROVIDERS: Nurse Practitioner Family; PCP Internal Medicine; Referring Provider Internal Medicine Rheumatology; Visit Provider Internal Medicine Rheumatology
DX: M06.4 Inflammatory polyarthropathy (principal); R76.8 Other specified abnormal immunological findings in serum; M79.7 Fibromyalgia; M17.0 Bilateral primary osteoarthritis of knee; M21.40 Flat foot [pes planus] (acquired), unspecified foot; N18.9 Chronic kidney disease, unspecified; K76.0 Fatty (change of) liver, not elsewhere classified; E03.9 Hypothyroidism, unspecified; M51.36 Other intervertebral disc degeneration, lumbar region; M47.897 Other spondylosis, lumbosacral region; Z96.89 Presence of other specified functional implants
CPT/HCPCS: 36415; 80053; 80061; 84443; 85025

== ENCOUNTER → 2021-07-10 | Outpatient (CLI) | payer MEDICARE, SELFPAY ==
[2021-07-10 12:18] LABS: Absolute Lymphocyte Count 1.53 X10^3/uL (0.83-4.51); Absolute Neutrophil Count 3.7 X10^3/uL (2.0-7.7); Basophil# 0.05 X10^3/uL; Basophil% 0.8 % (0-1); Eosinophil# 0.31 X10^3/uL; Eosinophils% 5.1 % (0-5); Hematocrit 41.6 % (37-47); Hemoglobin 13.6 g/dL (12.0-15.0); Lymphocyte # 1.53 X10^3/ul (0.83-4.51); Lymphocyte % 25.3 % (19-41); Mean Corp Hgb Conc 32.7 g/dL (32-36); Mean Corpuscular Hgb 30.7 pg (27.0-32.0); Mean Corpuscular Volume 93.9 fL (81-99); Mean Platelet Vol. 11.2 fl (6.2-12.0); Monocyte# 0.41 X10^3/uL; Monocyte% 6.8 % (0-10); NRBC Flagged by Analyzer 0 % (0-5); Neutrophil # 3.72 X10^3/uL (2.7-7.7); Neutrophil % 61.5 % (47-70); Platelet Count 198 K/mm3 (150-450); RBC Distribution Width CV 13.2 % (11.6-14.6); RBC Distribution Width SD 45.2 fl (35.1-43.9); Red Blood Count 4.43 M/mm3 (4.2-5.4); White Blood Count 6.1 K/mm3 (4.4-11.0)
[2021-07-10 12:34] LABS: AST(SGOT) 21 U/L (15-37); Alanine Aminotransfer ALT/SGPT 31 U/L (13-56); Albumin, Serum 3.5 g/dL (3.2-5.0); Alkaline Phosphatase 104 U/L (45-117); Anion Gap 6 (5-15); BUN 19 mg/dL (7-18); BUN/Creat Ratio 16.7 RATIO (10-20); Calcium,Total 8.9 mg/dL (8.5-10.1); Chloride 106 mmol/L (98-107); Creatinine, Serum 1.14 mg/dL (0.55-1.02); EST Glomerular Filtration Rate 52 mL/min (>60); Est Glom Filt Rate - Afr Amer 63 mL/min (>60); Globulin 3.6 g/dL (2.2-4.2); Glucose 158 mg/dL (74-106); Protein, Total 7.1 g/dL (6.4-8.2); Sodium Level 140 mmol/L (136-145)
== END | disposition home or self-care (01) ==
LOC: MTLAB 10:34
PROVIDERS: PCP Internal Medicine; Referring Provider Internal Medicine Rheumatology; Visit Provider Internal Medicine Rheumatology
DX: M06.4 Inflammatory polyarthropathy (principal); R76.8 Other specified abnormal immunological findings in serum; M79.7 Fibromyalgia; M17.0 Bilateral primary osteoarthritis of knee; M21.40 Flat foot [pes planus] (acquired), unspecified foot; N18.9 Chronic kidney disease, unspecified; K76.0 Fatty (change of) liver, not elsewhere classified; E03.9 Hypothyroidism, unspecified; M51.36 Other intervertebral disc degeneration, lumbar region; M47.897 Other spondylosis, lumbosacral region; Z96.89 Presence of other specified functional implants
CPT/HCPCS: 36415; 80053; 85025

== ENCOUNTER → 2021-09-08 | Outpatient (CLI) | payer MEDICARE, SELFPAY ==
[2021-09-08 15:21] LABS: Absolute Lymphocyte Count 2.14 X10^3/uL (0.83-4.51); Absolute Neutrophil Count 3.3 X10^3/uL (2.0-7.7); Basophil# 0.08 X10^3/uL; Basophil% 1.3 % (0-1); Eosinophil# 0.35 X10^3/uL; Eosinophils% 5.6 % (0-5); Hematocrit 41.6 % (37-47); Hemoglobin 13.8 g/dL (12.0-15.0); Lymphocyte # 2.14 X10^3/ul (0.83-4.51); Mean Corp Hgb Conc 33.2 g/dL (32-36); Mean Corpuscular Hgb 30.9 pg (27.0-32.0); Mean Corpuscular Volume 93.1 fL (81-99); Mean Platelet Vol. 11.4 fl (6.2-12.0); Monocyte# 0.44 X10^3/uL; NRBC Flagged by Analyzer 0 % (0-5); Neutrophil # 3.28 X10^3/uL (2.7-7.7); Neutrophil % 51.9 % (47-70); Platelet Count 223 K/mm3 (150-450); RBC Distribution Width CV 13.7 % (11.6-14.6); RBC Distribution Width SD 47.2 fl (35.1-43.9); Red Blood Count 4.47 M/mm3 (4.2-5.4); White Blood Count 6.3 K/mm3 (4.4-11.0)
[2021-09-08 16:15] LABS: AST(SGOT) 17 U/L (15-37); Alanine Aminotransfer ALT/SGPT 31 U/L (13-56); Albumin, Serum 3.5 g/dL (3.2-5.0); Alkaline Phosphatase 107 U/L (45-117); Anion Gap 2 (5-15); BUN 19 mg/dL (7-18); BUN/Creat Ratio 16.2 RATIO (10-20); Calcium,Total 9.3 mg/dL (8.5-10.1); Chloride 107 mmol/L (98-107); Creatinine, Serum 1.17 mg/dL (0.55-1.02); EST Glomerular Filtration Rate 50 mL/min (>60); Est Glom Filt Rate - Afr Amer 61 mL/min (>60); Globulin 3.6 g/dL (2.2-4.2); Glucose 167 mg/dL (74-106); Potassium 3.9 mmol/L (3.5-5.1); Protein, Total 7.1 g/dL (6.4-8.2); Sodium Level 140 mmol/L (136-145)
[2021-09-08 16:22] LABS: Thyroid Stim Hormone (TSH) 5.55 uIU/mL (0.358-3.74)
== END | disposition home or self-care (01) ==
LOC: MTLAB 12:34
PROVIDERS: Internal Medicine Rheumatology; PCP Internal Medicine; Referring Provider Nurse Practitioner Family; Visit Provider Nurse Practitioner Family
DX: M06.4 Inflammatory polyarthropathy (principal); R76.8 Other specified abnormal immunological findings in serum; M79.7 Fibromyalgia; M17.0 Bilateral primary osteoarthritis of knee; M21.40 Flat foot [pes planus] (acquired), unspecified foot; N18.9 Chronic kidney disease, unspecified; K76.0 Fatty (change of) liver, not elsewhere classified; E03.9 Hypothyroidism, unspecified; M51.36 Other intervertebral disc degeneration, lumbar region; M47.897 Other spondylosis, lumbosacral region; Z96.89 Presence of other specified functional implants
CPT/HCPCS: 36415; 80053; 84443; 85025

== ENCOUNTER → 2021-11-20 | Outpatient (CLI) | payer MEDICARE, SELFPAY ==
--- NOTE | 2021-11-20 10:40 | VDLE_ITS ---
Reason For Study: Pain RIGHT GSV is normal. CFV is compressible, spontaneous, phasic, competent and demonstrates normal augmentation. FV is compressible, spontaneous, phasic, competent and demonstrates normal augmentation. POP V is compressible, spontaneous, phasic, competent and demonstrates normal augmentation. T/P Trunk is compressible. PTV is compressible. RT PerV is compressible. Nonvascularized structure noted in the right poppliteal fossa that measures 1.22 x 4.03 x 5.26 cm. Procedure This is a venous duplex using B-mode, color flow and spectral Doppler. Exam performed in department. A preliminary report was called and/or faxed to [facility]. VL/Venous Duplex US, Unilateral Interpretation Summary Deep veins of the right lower extremity are patent and compressible segmentally . There is no evidence of right lower extremity deep vein thrombosis. The right great [place] us vein appears patent and compressible segmentally. Nonvascularized structure noted in the right poppliteal fossa that measures 1.2 2 x 4.03 x 5.26 cm. Ordering Physician: Ashish Norton Referring Physician: Girish Briggs Performed By: Lenore Aponte RVT
== END | disposition home or self-care (01) ==
PROVIDERS: PCP Internal Medicine; Referring Provider Nurse Practitioner Family; Visit Provider Nurse Practitioner Family
DX: M79.661 Pain in right lower leg (principal)
CPT/HCPCS: 93971

== ENCOUNTER → 2021-12-07 | Outpatient (CLI) | payer MEDICARE, SELFPAY ==
[2021-12-07 12:23] LABS: Absolute Lymphocyte Count 1.79 X10^3/uL (0.83-4.51); Absolute Neutrophil Count 3.8 X10^3/uL (2.0-7.7); Basophil# 0.05 X10^3/uL; Basophil% 0.8 % (0-1); Eosinophil# 0.36 X10^3/uL; Eosinophils% 5.5 % (0-5); Hematocrit 41.4 % (37-47); Hemoglobin 13.7 g/dL (12.0-15.0); Lymphocyte # 1.79 X10^3/ul (0.83-4.51); Lymphocyte % 27.6 % (19-41); Mean Corp Hgb Conc 33.1 g/dL (32-36); Mean Corpuscular Hgb 30.9 pg (27.0-32.0); Mean Corpuscular Volume 93.5 fL (81-99); Monocyte# 0.47 X10^3/uL; Monocyte% 7.2 % (0-10); NRBC Flagged by Analyzer 0 % (0-5); Neutrophil % 58.6 % (47-70); Platelet Count 208 K/mm3 (150-450); RBC Distribution Width CV 13.2 % (11.6-14.6); RBC Distribution Width SD 45.4 fl (35.1-43.9); Red Blood Count 4.43 M/mm3 (4.2-5.4); White Blood Count 6.5 K/mm3 (4.4-11.0)
[2021-12-07 13:04] LABS: ALB/GLOB Ratio 0.9 RATIO (0.9-2.4); AST(SGOT) 20 U/L (15-37); Alanine Aminotransfer ALT/SGPT 28 U/L (13-56); Albumin, Serum 3.6 g/dL (3.2-5.0); Alkaline Phosphatase 116 U/L (45-117); Anion Gap 9 (5-15); BUN 20 mg/dL (7-18); BUN/Creat Ratio 16.9 RATIO (10-20); Chloride 106 mmol/L (98-107); Creatinine, Serum 1.18 mg/dL (0.55-1.02); EST Glomerular Filtration Rate 50 mL/min (>60); Est Glom Filt Rate - Afr Amer 60 mL/min (>60); Globulin 3.8 g/dL (2.2-4.2); Glucose 163 mg/dL (74-106); Protein, Total 7.4 g/dL (6.4-8.2); Sodium Level 141 mmol/L (136-145)
[2021-12-07 13:28] LABS: Thyroid Stim Hormone (TSH) 5.74 uIU/mL (0.358-3.74)
== END | disposition home or self-care (01) ==
PROVIDERS: Physician Assistant; PCP Internal Medicine; Referring Provider Internal Medicine Rheumatology; Visit Provider Internal Medicine Rheumatology
DX: M06.4 Inflammatory polyarthropathy (principal); R76.8 Other specified abnormal immunological findings in serum; M79.7 Fibromyalgia; M17.0 Bilateral primary osteoarthritis of knee; M21.40 Flat foot [pes planus] (acquired), unspecified foot; N18.9 Chronic kidney disease, unspecified; K76.0 Fatty (change of) liver, not elsewhere classified; E03.9 Hypothyroidism, unspecified; M51.36 Other intervertebral disc degeneration, lumbar region; M47.897 Other spondylosis, lumbosacral region; Z96.89 Presence of other specified functional implants
CPT/HCPCS: 36415; 80053; 84443; 85025

== ENCOUNTER → 2022-02-18 | Outpatient (CLI) | payer MEDICARE, SELFPAY ==
[2022-02-18 12:41] LABS: Thyroid Stim Hormone (TSH) 1.19 uIU/mL (0.358-3.74)
== END | disposition home or self-care (01) ==
LOC: BIMLAB 11:17
PROVIDERS: PCP Internal Medicine; Referring Provider Nurse Practitioner Family; Visit Provider Nurse Practitioner Family
DX: E07.9 Disorder of thyroid, unspecified (principal)
CPT/HCPCS: 36415; 84443

== ENCOUNTER → 2022-04-05 | Outpatient (CLI) | payer MEDICARE, SELFPAY ==
[2022-04-05 12:10] LABS: Absolute Lymphocyte Count 1.19 X10^3/uL (0.83-4.51); Basophil# 0.08 X10^3/uL; Basophil% 1.5 % (0-1); Eosinophils% 9.4 % (0-5); Hematocrit 41.9 % (37-47); Hemoglobin 13.4 g/dL (12.0-15.0); Lymphocyte # 1.19 X10^3/ul (0.83-4.51); Lymphocyte % 22.3 % (19-41); Mean Corpuscular Hgb 30.2 pg (27.0-32.0); Mean Corpuscular Volume 94.6 fL (81-99); Mean Platelet Vol. 11.4 fl (6.2-12.0); Monocyte# 0.55 X10^3/uL; Monocyte% 10.3 % (0-10); NRBC Flagged by Analyzer 0 % (0-5); Neutrophil # 3.01 X10^3/uL (2.7-7.7); Neutrophil % 56.3 % (47-70); Platelet Count 189 K/mm3 (150-450); RBC Distribution Width SD 45.2 fl (35.1-43.9); Red Blood Count 4.43 M/mm3 (4.2-5.4); White Blood Count 5.3 K/mm3 (4.4-11.0)
[2022-04-05 12:25] LABS: ALB/GLOB Ratio 0.9 RATIO (0.9-2.4); AST(SGOT) 19 U/L (15-37); Alanine Aminotransfer ALT/SGPT 29 U/L (13-56); Albumin, Serum 3.4 g/dL (3.2-5.0); Alkaline Phosphatase 110 U/L (45-117); Anion Gap 6 (5-15); BUN 17 mg/dL (7-18); BUN/Creat Ratio 14.7 RATIO (10-20); Calcium,Total 8.9 mg/dL (8.5-10.1); Chloride 106 mmol/L (98-107); Creatinine, Serum 1.16 mg/dL (0.55-1.02); EST Glomerular Filtration Rate 51 mL/min (>60); Est Glom Filt Rate - Afr Amer 61 mL/min (>60); Globulin 3.6 g/dL (2.2-4.2); Glucose 180 mg/dL (74-106); Potassium 3.8 mmol/L (3.5-5.1); Sodium Level 139 mmol/L (136-145)
== END | disposition home or self-care (01) ==
PROVIDERS: PCP Internal Medicine; Referring Provider Internal Medicine Rheumatology; Visit Provider Internal Medicine Rheumatology
DX: M06.4 Inflammatory polyarthropathy (principal); R76.8 Other specified abnormal immunological findings in serum; M79.7 Fibromyalgia; M17.0 Bilateral primary osteoarthritis of knee; M21.40 Flat foot [pes planus] (acquired), unspecified foot; N18.9 Chronic kidney disease, unspecified; K76.0 Fatty (change of) liver, not elsewhere classified; E03.9 Hypothyroidism, unspecified; M51.36 Other intervertebral disc degeneration, lumbar region; M47.897 Other spondylosis, lumbosacral region; Z96.89 Presence of other specified functional implants
CPT/HCPCS: 36415; 80053; 85025

== ENCOUNTER → 2022-06-28 | Outpatient (CLI) | payer MEDICARE, SELFPAY ==
--- NOTE | 2022-06-28 13:37 | CT_ITS ---
STUDY: CT FACIAL BONES WITHOUT CONTRAST REASON FOR EXAM: Female, 61 years old. CHRONIC SINUSITIS RADIATION DOSAGE (If Supplied By Facility): CTDIvol = ( 33.06 ) mGy, DLP = ( 726.41 ) mGycm TECHNIQUE: The patient was scanned in a multi detector CT scanner. Sagittal and coronal images were reconstructed. Individualized dose optimization techniques were used for this CT. COMPARISON: None. FINDINGS: Normal soft tissue structures. Normal orbital elizabeth and orbital contents. Normal nasal bones and anterior nasal spine. Normal facial bones. There is no demonstrated fracture. There is a 1.5 cm polyp or retention cyst along the lateral wall of the inferior aspect of the right maxillary sinus. CT/Sinus/Facial Bone IMPRESSION: 1.5 cm polyp or retention cyst along the lateral wall of the inferior aspect of the right maxillary sinus. Electronically Signed: Brooks Willis MD at 14:12 EDT ,
[2022-06-28 14:51] LABS: Absolute Lymphocyte Count 2.07 X10^3/uL (0.83-4.51); Absolute Neutrophil Count 3.8 X10^3/uL (2.0-7.7); Basophil# 0.09 X10^3/uL; Basophil% 1.3 % (0-1); Eosinophil# 0.48 X10^3/uL; Eosinophils% 6.9 % (0-5); Hematocrit 42.5 % (37-47); Hemoglobin 13.6 g/dL (12.0-15.0); Lymphocyte # 2.07 X10^3/ul (0.83-4.51); Lymphocyte % 29.7 % (19-41); Mean Corpuscular Hgb 29.6 pg (27.0-32.0); Mean Corpuscular Volume 92.4 fL (81-99); Mean Platelet Vol. 11.1 fl (6.2-12.0); Monocyte# 0.53 X10^3/uL; Monocyte% 7.6 % (0-10); NRBC Flagged by Analyzer 0 % (0-5); Neutrophil # 3.79 X10^3/uL (2.7-7.7); Neutrophil % 54.4 % (47-70); Platelet Count 213 K/mm3 (150-450); RBC Distribution Width CV 13.1 % (11.6-14.6); RBC Distribution Width SD 44.3 fl (35.1-43.9)
[2022-06-28 15:47] LABS: AST(SGOT) 21 U/L (15-37); Alanine Aminotransfer ALT/SGPT 31 U/L (13-56); Albumin, Serum 3.7 g/dL (3.2-5.0); Alkaline Phosphatase 128 U/L (45-117); Anion Gap 7 (5-15); BUN 22 mg/dL (7-18); Calcium,Total 9.5 mg/dL (8.5-10.1); Chloride 105 mmol/L (98-107); EST Glomerular Filtration Rate 54 mL/min (>60); Est Glom Filt Rate - Afr Amer 65 mL/min (>60); Globulin 3.7 g/dL (2.2-4.2); Glucose 199 mg/dL (74-106); Protein, Total 7.4 g/dL (6.4-8.2); Sodium Level 141 mmol/L (136-145)
== END | disposition home or self-care (01) ==
PROVIDERS: PCP Internal Medicine; Referring Provider Otolaryngology; Visit Provider Otolaryngology
DX: J32.9 Chronic sinusitis, unspecified (principal); M06.4 Inflammatory polyarthropathy; R76.8 Other specified abnormal immunological findings in serum; M79.7 Fibromyalgia
CPT/HCPCS: 36415; 70486; 80053; 85025

== ENCOUNTER → 2022-10-05 | Outpatient (CLI) | payer MEDICARE, SELFPAY ==
[2022-10-05 12:24] LABS: Absolute Lymphocyte Count 1.92 X10^3/uL (0.83-4.51); Absolute Neutrophil Count 3.5 X10^3/uL (2.0-7.7); Basophil% 1.5 % (0-1); Eosinophil# 0.49 X10^3/uL; Eosinophils% 7.5 % (0-5); Hematocrit 41.9 % (37-47); Hemoglobin 13.3 g/dL (12.0-15.0); Lymphocyte # 1.92 X10^3/ul (0.83-4.51); Lymphocyte % 29.3 % (19-41); Mean Corp Hgb Conc 31.7 g/dL (32-36); Mean Corpuscular Hgb 29.3 pg (27.0-32.0); Mean Corpuscular Volume 92.3 fL (81-99); Mean Platelet Vol. 11.3 fl (6.2-12.0); Monocyte% 7.6 % (0-10); NRBC Flagged by Analyzer 0 % (0-5); Neutrophil # 3.53 X10^3/uL (2.7-7.7); Neutrophil % 53.9 % (47-70); Platelet Count 222 K/mm3 (150-450); RBC Distribution Width CV 13.1 % (11.6-14.6); RBC Distribution Width SD 44.4 fl (35.1-43.9); Red Blood Count 4.54 M/mm3 (4.2-5.4); White Blood Count 6.6 K/mm3 (4.4-11.0)
[2022-10-05 12:48] LABS: ALB/GLOB Ratio 0.9 RATIO (0.9-2.4); AST(SGOT) 31 U/L (15-37); Alanine Aminotransfer ALT/SGPT 41 U/L (13-56); Albumin, Serum 3.3 g/dL (3.2-5.0); Alkaline Phosphatase 149 U/L (45-117); Anion Gap 6 (5-15); BUN 16 mg/dL (7-18); BUN/Creat Ratio 13.9 RATIO (10-20); Calcium,Total 8.6 mg/dL (8.5-10.1); Chloride 103 mmol/L (98-107); Creatinine, Serum 1.15 mg/dL (0.55-1.02); EST Glomerular Filtration Rate 51 mL/min (>60); Est Glom Filt Rate - Afr Amer 62 mL/min (>60); Globulin 3.7 g/dL (2.2-4.2); Glucose 277 mg/dL (74-106); Potassium 4.1 mmol/L (3.5-5.1); Sodium Level 138 mmol/L (136-145)
== END | disposition home or self-care (01) ==
LOC: MTLAB 09:31
PROVIDERS: PCP Internal Medicine; Referring Provider Internal Medicine Rheumatology; Visit Provider Internal Medicine Rheumatology
DX: M06.4 Inflammatory polyarthropathy (principal); R76.8 Other specified abnormal immunological findings in serum; M79.7 Fibromyalgia
CPT/HCPCS: 36415; 80053; 85025

== ENCOUNTER → 2023-01-07 | Outpatient (CLI) | payer MEDICARE, SELFPAY ==
[2023-01-07 12:41] LABS: Absolute Lymphocyte Count 1.58 X10^3/uL (0.83-4.51); Absolute Neutrophil Count 3.3 X10^3/uL (2.0-7.7); Basophil# 0.08 X10^3/uL; Basophil% 1.4 % (0-1); Eosinophil# 0.47 X10^3/uL; Hematocrit 39.8 % (37-47); Hemoglobin 12.9 g/dL (12.0-15.0); Lymphocyte # 1.58 X10^3/ul (0.83-4.51); Lymphocyte % 26.8 % (19-41); Mean Corp Hgb Conc 32.4 g/dL (32-36); Mean Corpuscular Hgb 29.9 pg (27.0-32.0); Mean Corpuscular Volume 92.3 fL (81-99); Mean Platelet Vol. 11.3 fl (6.2-12.0); Monocyte# 0.44 X10^3/uL; Monocyte% 7.5 % (0-10); NRBC Flagged by Analyzer 0 % (0-5); Neutrophil # 3.32 X10^3/uL (2.7-7.7); Neutrophil % 56.1 % (47-70); Platelet Count 210 K/mm3 (150-450); RBC Distribution Width CV 13.1 % (11.6-14.6); RBC Distribution Width SD 44.7 fl (35.1-43.9); Red Blood Count 4.31 M/mm3 (4.2-5.4); White Blood Count 5.9 K/mm3 (4.4-11.0)
[2023-01-07 12:58] LABS: ALB/GLOB Ratio 0.9 RATIO (0.9-2.4); AST(SGOT) 22 U/L (15-37); Alanine Aminotransfer ALT/SGPT 37 U/L (13-56); Albumin, Serum 3.3 g/dL (3.2-5.0); Alkaline Phosphatase 160 U/L (45-117); Anion Gap 7 (5-15); BUN 17 mg/dL (7-18); Calcium,Total 8.8 mg/dL (8.5-10.1); Chloride 101 mmol/L (98-107); Creatinine, Serum 1.21 mg/dL (0.55-1.02); EST Glomerular Filtration Rate 48 mL/min (>60); Est Glom Filt Rate - Afr Amer 58 mL/min (>60); Globulin 3.8 g/dL (2.2-4.2); Glucose 382 mg/dL (74-106); Protein, Total 7.1 g/dL (6.4-8.2); Sodium Level 137 mmol/L (136-145)
== END | disposition home or self-care (01) ==
LOC: MTLAB 10:09
PROVIDERS: PCP Internal Medicine; Referring Provider Internal Medicine Rheumatology; Visit Provider Internal Medicine Rheumatology
DX: M06.4 Inflammatory polyarthropathy (principal); R76.8 Other specified abnormal immunological findings in serum; M79.7 Fibromyalgia; M17.0 Bilateral primary osteoarthritis of knee
CPT/HCPCS: 36415; 80053; 85025

== ENCOUNTER → 2023-03-28 | Outpatient (CLI) | payer MEDICARE, SELFPAY ==
[2023-03-31 12:09] LABS: HPV APTIMA, High Risk Negative (Negative)
== END | disposition home or self-care (01) ==
LOC: LABSPEC 12:57
PROVIDERS: PCP Internal Medicine; Referring Provider Nurse Practitioner Women's Health; Visit Provider Nurse Practitioner Women's Health
DX: Z12.4 Encounter for screening for malignant neoplasm of cervix (principal); Z78.0 Asymptomatic menopausal state
CPT/HCPCS: 87624; 88175; G0145

== ENCOUNTER → 2023-04-08 | Outpatient (CLI) | payer MEDICARE, SELFPAY ==
[2023-04-08 12:16] LABS: Absolute Lymphocyte Count 1.63 X10^3/uL (0.83-4.51); Absolute Neutrophil Count 3.3 X10^3/uL (2.0-7.7); Basophil% 1.7 % (0-1); Eosinophil# 0.44 X10^3/uL; Eosinophils% 7.5 % (0-5); Hematocrit 41.9 % (37-47); Hemoglobin 13.7 g/dL (12.0-15.0); Lymphocyte # 1.63 X10^3/ul (0.83-4.51); Lymphocyte % 27.6 % (19-41); Mean Corp Hgb Conc 32.7 g/dL (32-36); Mean Corpuscular Hgb 29.8 pg (27.0-32.0); Mean Corpuscular Volume 91.1 fL (81-99); Mean Platelet Vol. 11.2 fl (6.2-12.0); Monocyte# 0.44 X10^3/uL; Monocyte% 7.5 % (0-10); NRBC Flagged by Analyzer 0 % (0-5); Neutrophil # 3.27 X10^3/uL (2.7-7.7); Neutrophil % 55.4 % (47-70); Platelet Count 203 K/mm3 (150-450); RBC Distribution Width CV 13.2 % (11.6-14.6); RBC Distribution Width SD 43.7 fl (35.1-43.9); White Blood Count 5.9 K/mm3 (4.4-11.0)
[2023-04-08 12:44] LABS: ALB/GLOB Ratio 0.9 RATIO (0.9-2.4); AST(SGOT) 26 U/L (15-37); Alanine Aminotransfer ALT/SGPT 33 U/L (13-56); Albumin, Serum 3.2 g/dL (3.2-5.0); Alkaline Phosphatase 170 U/L (45-117); Anion Gap 4 (5-15); BUN 18 mg/dL (7-18); Calcium,Total 9.5 mg/dL (8.5-10.1); Chloride 108 mmol/L (98-107); Creatinine, Serum 1.06 mg/dL (0.55-1.02); EST Glomerular Filtration Rate 56 mL/min (>60); Est Glom Filt Rate - Afr Amer 68 mL/min (>60); Globulin 3.7 g/dL (2.2-4.2); Glucose 215 mg/dL (74-106); Potassium 4.1 mmol/L (3.5-5.1); Protein, Total 6.9 g/dL (6.4-8.2); Sodium Level 141 mmol/L (136-145)
== END | disposition home or self-care (01) ==
LOC: MTLAB 09:29
PROVIDERS: PCP Nurse Practitioner Family; Referring Provider Internal Medicine Rheumatology; Visit Provider Internal Medicine Rheumatology
DX: M06.4 Inflammatory polyarthropathy (principal); M79.7 Fibromyalgia; M17.0 Bilateral primary osteoarthritis of knee; R76.8 Other specified abnormal immunological findings in serum
CPT/HCPCS: 36415; 80053; 85025

== ENCOUNTER → 2023-04-11 | Outpatient (CLI) | payer MEDICARE, SELFPAY ==
--- NOTE | 2023-04-11 08:31 | BI_ITS ---
MAMMOGRAPHY - BILATERAL SCREENING REASON FOR EXAM: Female, 62 years old. Routine annual screening examination. PERTINENT HISTORY: Non-contributory. TECHNIQUE: Digital bilateral breast bertha (3D mammographic acquisition) in the CC and MLO projections. 2-D mediolateral oblique (MLO) and craniocaudad (CC) views of both breasts were obtained. CAD: Full Field Digital Mammography with Computer Added Detection was performed. COMPARISON: Comparison is made with prior study September 22, 2020 and May 26, 2016. FINDINGS: Breast Composition: There are scattered areas of fibroglandular density. There are no dominant masses or suspicious calcifications. Stable small benign-appearing bilateral axillary lymph nodes. No other significant abnormalities are identified. There has been no significant change since the prior study. BI/SCRN MAMM (CAD)W/BERTHA BILAT IMPRESSION: Stable bilateral screening mammogram. Yearly follow-up mammogram recommended. (A) ASSESSMENT CATEGORY: BIRADS Category 2: Benign. A letter regarding these results will be sent to the patient by the facility within 30 days. Approximately 10% of breast cancers are not detected by mammography. A normal mammogram should not delay biopsy of a clinically suspicious abnormality. [id number] Electronically Signed: Brooks Willis MD at 12:07 EST ,
--- OUTSIDE RECORDS SUMMARY | 2023-04-11 09:00 | XMS RPT_ITS | CCD ---
Author Name Unknown Address [address] [place] [id number] Organization [facility] Care Team Providers Care Shade Cutter Name Role Phone ASHLEY ANNE RAY Unavailable Unavailable HOEPRICH, ASHLEY RAY Unavailable Unavailable HOEPRICH, ASHLEY RAY Unavailable Unavailable HOEPRICH, ASHLEY RAY Unavailable Unavailable HOEPRICH, ASHLEY RAY Unavailable Unavailable HOEPRICH, ASHLEY RAY Unavailable Unavailable HOEPRICH, ASHLEY R Unavailable Unavailable HOEPRICH, ASHLEY R Unavailable Unavailable HOEPRICH, ASHLEY R Unavailable Unavailable HOEPRICH, ASHLEY R Unavailable Unavailable HOEPRICH, ASHLEY R Unavailable Unavailable HOEPRICH, ASHLEY R Unavailable Unavailable Fast, Michelle A Unavailable Unavailable Marquard, Chad Jefferson Unavailable Unavailable Marquard, Chad Jefferson Unavailable Unavailable [place], Lenore D Unavailable Unavailable Fast, Michelle A Unavailable Unavailable No, Physician Primary Care Provider Unavailabl e Oleghe, Efewongbe Farida Primary Care Provide r Ran Cochran Unavailable SOREN COREY Attending Unavailable NO, PHYSICIAN Primary Care Unavailable OLEGHE, EFEWONGBE FARIDA Admitting Unav ailable RAN COCHRAN Attending Unavailabl e OLEGHE, EFEWONGBE FARIDA Referring Unav ailable OLEGHE, EFEWONGBE FARIDA Primary Care Unav ailable Oleghe, Efewongbe Farida Primary Care Provide r Ran Cochran Unavailable Ciesa VY, Talisha Primary Care Provider [facility], Talisha Primary Care Provider [facility], Talisha Primary Care Provider Ciesa VY, Talisha Primary Care Provider Dr. Иван Coburn Attending Unavailabl e Pending, Provider Primary Care Unavailable GÉNESIS CASANOVA Admitting Unavailable EDILBERTOGÉNESIS Attending Unavailable JANET PEÑA E Primary Care Unavailable GÉNESIS CASANOVA Attending Unavailable JANET PEÑA E Referring Unavailable DANEA, TALISHA Primary Care Unavailable JAY MARINA Attending Unavailable DANEA, TALISHA Referring Unavailable DANEA, TALISHA Primary Care Unavailable GÉNESIS CASANOVA Attending Unavailable DANEA, TALISHA Primary Care Unavailable GÉNESIS CASANOVA Attending Unavailable GÉNESIS CASANOVA Referring Unavailable DANEA, TALISHA Primary Care Unavailable GÉNESIS CASANOVA Attending Unavailable GÉNESIS CASANOVA Referring Unavailable MARIANA, TALISHA Primary Care Unavailable Allergies Allergy Classification Reported Allergen(s) Allergy Type Date of Onset Reaction(s) Facility (20 sources) chloroxylenol; Translations: [CHLOROXYLENOL] Drug Allergy 6 Other: See Comments [facility] Repository (20 sources) clindamycin; Translations: [CLINDAMYCIN HCL] Drug Allergy 6 [facility] Repository (20 sources) Penicillins; Translations: [PENICILLINS] Propensity to adverse reactions to drug (disorder) 6 Swelling, Rash, Unknown [facility] Repository (20 sources) ADHESIVE TAPE-SILICONES; Translations: [ADHESIVE TAPE-SILICONES] Propensity to adverse reactions to drug (disorder) 2 Rash, Unknown [facility] Repository (1 source) Adhesive Tape; Translations: [Tape] [facility] cl[facility]; Translations: [clindamycin] [facility] Erythromycin; Translations: [ERYTHROMYCIN] Drug Allergy 1 Rash, Unknown [facility] (1 source) ERYTHROMYCIN BASE; Translations: [ERYTHROMYCIN BASE] Propensity to adverse reactions to drug (disorder) 2 [facility] Repository Medications Current Medications Medication Drug Class(es) Dates Sig (Normalized) Sig (Original) DULoxetine 60 mg delayed release oral capsule (20 sources) Serotonin and Norepinephrine Reuptake Inhibitor Start: 02-23-2023 End: 05-06-2023 take 1 capsule by mouth once daily in the morning DULoxetine (CYMBALTA) 30 mg capsule Take 1 capsule by mouth once daily. In am 30 capsule 0 04/06/2023 05/06/2023 Active Completed/Discontinued Medications Medication Drug Class(es) Dates Sig (Normalized) Sig (Original) acetaminophen 325 mg / oxyCODONE hydrochloride 10 mg oral tablet (20 sources) Opioid Agonist Start: 02-06-2022 End: 03-08-2022 take 1 tablet by mouth every eight hours as needed for pain oxyCODONE-acetamino phen (PERCOCET 10) 10-325 mg tablet Indications: Encounter for long-term (current) use of high-risk medication Take 1 tablet by mouth every 8 hours as needed for pain for up to 30 days. Do not start before February 06, 2022. 90 tablet 0 02/06/2022 02/18/2022 Discontinued Problems Active Problems Problem Classification Problem Date Documented Date Episodic/Chronic Acute and unspecified renal failure (20 sources) Renal failure syndrome; Translations: [Unspecified kidney failure] Onset: 10-02-2021 10-02-2021 Chronic Anxiety disorders (20 sources) Anxiety state; Translations: [Generalized anxiety disorder] Onset: 06-15-2013 10-02-2021 Chronic Chronic kidney disease (20 sources) Chronic kidney disease stage 3; Translations: [Chronic kidney disease, stage 3 (moderate)] Onset: 02-04-2017 02-04-2017 Chronic Diabetes mellitus without complication (20 sources) Type 2 diabetes mellitus; Translations: [Type 2 diabetes mellitus without complications] Onset: 07-29-2021 10-02-2021 Chronic Disorders of lipid metabolism (20 sources) Hypercholesterolemia; Translations: [Pure hypercholesterolemia, unspecified] Onset: 10-02-2021 10-02-2021 Chronic Essential hypertension (20 sources) Hypertensive disorder; Translations: [Essential (primary) hypertension] Onset: 08-28-2014 08-28-2014 Chronic Heart valve disorders (20 sources) Mitral valve prolapse; Translations: [Nonrheumatic mitral (valve) prolapse] Onset: 10-02-2021 10-02-2021 Chronic Nutritional deficiencies (20 sources) Vitamin D deficiency; Translations: [Vitamin D deficiency, unspecified] Onset: 10-02-2021 10-02-2021 Chronic Osteoarthritis (20 sources) Unilateral primary osteoarthritis, left knee; Translations: [Primary gonarthrosis, bilateral] Onset: 02-04-2017 02-04-2017 Chronic Other diseases of veins and lymphatics (1 source) Peripheral venous insufficiency; Translations: [Venous (peripheral) insufficiency] Episodic Other liver diseases (20 sources) Steatosis of liver; Translations: [Fatty (change of) liver, not elsewhere classified] Onset: 02-04-2017 02-04-2017 Chronic Other nervous system disorders (8 sources) Chronic pain; Translations: [Other chronic pain] Onset: 02-04-2017 02-04-2017 Chronic Other nervous system disorders (20 sources) Chronic pain syndrome; Translations: [Chronic pain syndrome] Onset: 02-04-2017 Chronic Other nervous system disorders (3 sources) Carpal tunnel syndrome of right wrist; Translations: [Carpal tunnel syndrome, right upper limb] Chronic Other nervous system disorders (1 source) Chronic pain syndrome; Translations: [Chronic pain syndrome] Onset: 05-24-2022 Chronic Other nervous system disorders (1 source) Carpal tunnel syndrome, right upper limb; Translations: [Right carpal tunnel syndrome] Onset: 12-06-2022 Chronic Other nutritional; endocrine; and metabolic disorders (3 sources) Body mass index 40+ - severely obese; Translations: [Morbid obesity with BMI of 60.0-69.9, adult (HCC)] Onset: 08-22-2019 08-22-2019 Chronic Other nutritional; endocrine; and metabolic disorders (20 sources) Obesity; Translations: [Obesity, unspecified] Onset: 04-14-2010 04-14-2010 Chronic Other nutritional; endocrine; and metabolic disorders (4 sources) Morbid obesity; Translations: [Morbid (severe) obesity due to excess calories] Onset: 03-16-2023 Chronic Other nutritional; endocrine; and metabolic disorders (1 source) Morbid (severe) obesity due to excess calories; Translations: [Morbid obesity (HCC)] Onset: 03-16-2023 Chronic Other upper respiratory disease (20 sources) Seasonal allergy; Translations: [Other seasonal allergic rhinitis] Onset: 10-02-2021 10-02-2021 Chronic Other upper respiratory disease (20 sources) Allergic rhinitis; Translations: [Allergic rhinitis, unspecified] Onset: 11-24-2021 11-24-2021 Chronic Other upper respiratory infections (20 sources) Sinusitis; Translations: [Chronic sinusitis, unspecified] Onset: 10-02-2021 10-02-2021 Chronic Residual codes; unclassified (20 sources) Presence of other specified functional implants; Translations: [Other organ or tissue replaced by other means] Onset: 03-02-2017 10-02-2021 Chronic Residual codes; unclassified (20 sources) Obstructive sleep apnea syndrome; Translations: [Obstructive sleep apnea (adult) (pediatric)] Onset: 10-02-2021 10-02-2021 Chronic Rheumatoid arthritis and related disease (20 sources) Inflammatory polyarthropathy; Translations: [Inflammatory polyarthropathy] Onset: 07-15-2021 11-24-2021 Chronic Spondylosis; intervertebral disc disorders; other back problems (20 sources) Postlaminectomy syndrome, not elsewhere classified; Translations: [Degeneration of lumbar intervertebral disc] Onset: 12-09-2016 02-04-2017 Chronic Thyroid disorders (20 sources) Hypothyroidism; Translations: [Hypothyroidism, unspecified] Onset: 04-14-2010 02-04-2017 Chronic Unclassified (1 source) Unknown / UNK(Unknown) Onset: 12-09-2016 Past or Other Problems Problem Classification Problem Date Documented Date Episodic/Chronic Acquired foot deformities (20 sources) Right foot drop; Translations: [Foot drop, right foot] Onset: 03-05-2015 10-02-2021 Episodic Blindness and vision defects (20 sources) Disorder of vision; Translations: [Unspecified visual disturbance] Onset: 10-02-2021 10-02-2021 Episodic Diabetes mellitus without complication (20 sources) Impaired glucose tolerance; Translations: [Impaired glucose tolerance (oral)] Onset: 04-14-2010 04-14-2010 Episodic Genitourinary symptoms and ill-defined conditions (20 sources) Blood in urine; Translations: [Hematuria, unspecified] Onset: 04-24-2010 04-24-2010 Episodic Immunizations and screening for infectious disease (20 sources) Anti-nuclear factor positive; Translations: [Other specified abnormal immunological findings in serum] Onset: 11-13-2011 11-13-2011 Episodic Nonspecific chest pain (20 sources) Chest pain; Translations: [Chest pain, unspecified] Onset: 04-14-2010 04-14-2010 Episodic Other aftercare (20 sources) Patient encounter status; Translations: [Other aed trainer (current) drug therapy] Onset: 03-24-2016 Episodic Other aftercare (20 sources) Taking high risk medication; Translations: [Other aed trainer (current) drug therapy] Onset: 04-19-2022 Episodic Other aftercare (2 sources) Other assisted (current) drug therapy; Translations: [High risk medication use] Onset: 04-19-2022 Episodic Other connective tissue disease (20 sources) Fibromyalgia; Translations: [Fibromyalgia] Onset: 11-13-2011 02-04-2017 Episodic Other connective tissue disease (20 sources) Foot pain; Translations: [Pain in unspecified foot] Onset: 10-02-2021 10-02-2021 Episodic Other connective tissue disease (20 sources) Fibromyositis; Translations: [Fibromyalgia] Onset: 03-02-2017 10-02-2021 Episodic Other connective tissue disease (20 sources) Pain of right lower leg; Translations: [Pain in right lower leg] Onset: 11-20-2021 11-24-2021 Episodic Other connective tissue disease (20 sources) Myofascial pain syndrome; Translations: [Myalgia, other site] Onset: 05-24-2022 Episodic Other connective tissue disease (1 source) Myalgia, other site; Translations: [Myofascial pain syndrome] Onset: 05-24-2022 Episodic Other skin disorders (20 sources) Inflammatory dermatosis; Translations: [Disorder of the skin and subcutaneous tissue, unspecified] Onset: 10-02-2021 10-02-2021 Episodic Other skin disorders (20 sources) Cystic acne; Translations: [Acne vulgaris] Onset: 04-19-2022 04-19-2022 Episodic Residual codes; unclassified (3 sources) Edema of lower extremity; Translations: [Edema of both legs] Onset: 08-22-2019 08-22-2019 Episodic Residual codes; unclassified (20 sources) Bilateral lower limb edema; Translations: [Localized edema] Onset: 08-22-2019 10-02-2021 Episodic Spondylosis; intervertebral disc disorders; other back problems (20 sources) Radiculopathy, lumbar region; Translations: [Low back pain] Onset: 08-28-2014 08-28-2014 Episodic Thyroid disorders (20 sources) Disorder of thyroid gland; Translations: [Disorder of thyroid, unspecified] Onset: 04-14-2010 11-24-2021 Episodic Results Test Name Value Interpretation Reference Range Facil ity Vital Signs Date Time Vital Sign Value Performing Clinician Sabrina verdin 12-06-2022 10:29-0400 Body height 162.6 cm Génesis Casanova DO Work Phone: [facility] 12-06-2022 10:29-0400 Body weight 158.85 kg Génesis Casanova DO Work Phone: [facility] 12-06-2022 10:29-0400 Diastolic blood pressure 92 mm[Hg] Génesis Casanova DO Work Phone: [facility] 12-06-2022 10:29-0400 Heart rate 64 /min Génesis Casanova DO Work Phone: [facility] 12-06-2022 10:29-0400 Respiratory rate 18 /min Génesis Casanova DO Work Phone: [facility] 12-06-2022 10:29-0400 SaO2% (BldA) [Mass fraction] 96 % Génesis Casanova DO Work Phone: [facility] 12-06-2022 10:29-0400 Systolic blood pressure 158 mm[Hg] Génesis Casanova DO Work Phone: [facility] 09-20-2022 10:56-0400 Body height 161.5 cm Génesis Casanova DO Work Phone: [facility] 09-20-2022 10:56-0400 Body weight 161.03 kg Génesis Casanova DO Work Phone: [facility] 09-20-2022 10:56-0400 Diastolic blood pressure 96 mm[Hg] Génesis Casanova DO Work Phone: [facility] 09-20-2022 10:56-0400 Heart rate 74 /min Génesis Casanova DO Work Phone: [facility] 09-20-2022 10:56-0400 Respiratory rate 19 /min Génesis Casanova DO Work Phone: [facility] 09-20-2022 10:56-0400 SaO2% (BldA) [Mass fraction] 98 % Génesis Casanova DO Work Phone: [facility] 09-20-2022 10:56-0400 Systolic blood pressure 157 mm[Hg] Génesis Casanova DO Work Phone: [facility] 05-24-2022 14:58-0400 Diastolic blood pressure 79 mm[Hg] Génesis Casanova DO Work Phone: [facility] 05-24-2022 14:58-0400 Heart rate 69 /min Génesis Casanova DO Work Phone: [facility] 05-24-2022 14:58-0400 SaO2% (BldA) [Mass fraction] 96 % Génesis Casanova DO Work Phone: [facility] 05-24-2022 14:58-0400 Systolic blood pressure 145 mm[Hg] Génesis Casanova DO Work Phone: [facility] 04-19-2022 15:53-0500 Body height 164.6 cm Génesis Casanova DO Work Phone: [facility] 04-19-2022 15:53-0500 Body weight 158.76 kg Génesis Edilberto DO Work Phone: [facility] 04-19-2022 15:53-0500 Diastolic blood pressure 75 mm[Hg] Génesis Casanova DO Work Phone: [facility] 04-19-2022 15:53-0500 Heart rate 68 /min Génesis Casanova DO Work Phone: [facility] 04-19-2022 15:53-0500 Respiratory rate 19 /min Javadgege Casanova DO Work Phone: [facility] 04-19-2022 15:53-0500 SaO2% (BldA) [Mass fraction] 97 % Génesis Casanova DO Work Phone: [facility] 04-19-2022 15:53-0500 Systolic blood pressure 152 mm[Hg] Génesis Casanova DO Work Phone: [facility] 02-18-2022 15:13-0500 Diastolic blood pressure 84 mm[Hg] Susy Elisha FAUCET POLISHER.UROLOGY TEACHER Work Phone: [facility] 02-18-2022 15:13-0500 Heart rate 78 /min Susy Elisha FAUCET POLISHER.UROLOGY TEACHER Work Phone: [facility] 02-18-2022 15:13-0500 SaO2% (BldA) [Mass fraction] 97 % Susy Elisha FAUCET POLISHER.UROLOGY TEACHER Work Phone: [facility] 02-18-2022 15:13-0500 Systolic blood pressure 157 mm[Hg] Susy Elisha FAUCET POLISHER.UROLOGY TEACHER Work Phone: [facility] 11-24-2021 11:25-0400 Body height 161.5 cm Génesis Casanova DO Work Phone: [facility] 11-24-2021 11:25-0400 Body weight 161.48 kg Génesis Casanova DO Work Phone: [facility] 11-24-2021 11:25-0400 Diastolic blood pressure 75 mm[Hg] Génesis Casanova DO Work Phone: [facility] 11-24-2021 11:25-0400 Heart rate 74 /min Génesis Casanova DO Work Phone: [facility] 11-24-2021 11:25-0400 Respiratory rate 19 /min Génesis Casanova DO Work Phone: [facility] 11-24-2021 11:25-0400 SaO2% (BldA) [Mass fraction] 96 % Génesis Casanova DO Work Phone: [facility] 11-24-2021 11:25-0400 Systolic blood pressure 154 mm[Hg] Génesis Casanova DO Work Phone: [facility] 10-02-2021 17:23-0400 Body weight 161.03 kg Janet Peña HOME AID Work Phone: [facility] 10-02-2021 17:23-0400 Diastolic blood pressure 65 mm[Hg] Janet Peña HOME AID Work Phone: [facility] 10-02-2021 17:23-0400 Heart rate 79 /min Janet Peña CNP Work Phone: [facility] 10-02-2021 17:23-0400 Respiratory rate 19 /min Janet Peña HOME AID Work Phone: [facility] 10-02-2021 17:23-0400 Systolic blood pressure 155 mm[Hg] Janet Peña HOME AID Work Phone: [facility] 08-22-2019 08:06-0400 BP Diastolic 85 mm[Hg] Ran Cochran [facility] 08-22-2019 08:06-0400 BP Systolic 135 mm[Hg] Ran Cochran [facility] 08-22-2019 07:58-0400 BMI (Body Mass Index) 62.31 kg/m2 Ran Cochran [facility] 08-22-2019 07:58-0400 Body weight 164.66 kg Ran Cochran [facility] 08-22-2019 07:58-0400 Height 162.6 cm Ran Cochran [facility] 08-22-2019 07:58-0400 Pulse (Heart Rate) 71 /min Ran Cochran [facility] 04-26-2018 15:36-0500 BMI (Body Mass Index) 58.36 kg/m2 Ernesto Norton [facility] 04-26-2018 15:36-0500 Height 162.6 cm Ernesto Norton [facility] 04-26-2018 15:36-0500 Weight 154.22 kg Ernesto Norton [facility] Encounters Encounter Date Encounter Type Care Provider Facility Start: 04-06-2023 Mary youngblood MD Work Phone: Pain Management Procedures Date Procedure Procedure Detail Performing Clinician Start: 04-26-2018 Arthrocentesis Ernesto Norton Work Phone: Plan of Treatment Date Care Activity Detail Author Start: 07-07-2032 Urine microalbumin profile DTaP,Tdap,Td Vaccine (3 - Td or Tdap) [facility] Start: 03-08-2027 Tetanus vaccination Tetanus: Every 10yrs [facility] Start: 03-08-2027 Urine microalbumin profile [facility] Start: 02-21-2023 Depression Assessment Depression Assessment [facility] Start: 12-06-2022 End: 02-05-2023 TOXASSURE FLEX 23, URINE TOXASSURE FLEX 23, URINE Lab Routine Chronic pain syndrome Other spondylosis, lumbosacral region Lumbar radiculopathy Expected: 12/06/2022, Expires: 02/05/2023 [facility] Work Phone: Immunizations Immunization Date Immunization Notes Care Provider Eloy ceballos 01-28-2021 Seasonal, quadrivale nt, recombinant, injectable influenza vaccine, preservative free Janet Ciesa HOME AID Work Phone: [facility] 01-28-2021 influenza virus vacc ine, unspecified formulation Génesis Casanova Work Phone: [facility] 12-01-2019 Seasonal, quadrivale nt, recombinant, injectable influenza vaccine, preservative free Janet Ciesa HOME AID Work Phone: [facility] 11-30-2018 Seasonal, quadrivale nt, recombinant, injectable influenza vaccine, preservative free Janet Ciesa HOME AID Work Phone: [facility] 03-08-2017 tetanus toxoid, redu akira diphtheria toxoid, and acellular pertussis vaccine, adsorbed Janet Ciesa HOME AID Work Phone: [facility] Payers Date Payer Category Payer Private Health Insurance [id number] 2021 Medicare [id number] 2021 Medicare [id number] 2018 Medicare O MANAGED [facility] MMO MANAGED MEDICARE O xxxxxxx 2018-Present [id number] 2018 Medicare [id number] 2018 Medicare MMO MANAGED MEDI CARE MMO MANAGED MEDICARE O [id number] 2018-Present [id number] 2015 Unknown [id number] 2015 Unknown 2015 Unknown [employer] [place] O [id number] 2015-Present [phone] [address] [place] [address] O [id number] 1962 Unknown [id number] 1962 Unknown [id number] 1962 Unknown [id number] Social History Date Type Detail Facility Start: 04-26-2018 Tobacco smoking stat [facility] Never smoker [facility] Start: 1960 Sex Assigned At Not on file O [facility] Start: 08-22-2019 End: 11-24-2021 Tobacco smoking status KYIS Former smoker [facility] Start: 08-22-2019 End: 08-16-2022 Cigarettes smoked current (pack per day) - Reported [facility] Start: 08-22-2019 End: 03-16-2023 Alcohol intake Current non-drinker of alcohol (finding) [facility] Start: 08-22-2019 Tobacco Comment quit 1999 [facility] Start: 08-18-2021 End: 11-24-2021 Exposure to SARS-CoV-2 (event) Not sure [facility] Start: 08-22-2019 Tobacco use and exposure Never used [facility] End: 09-23-1999 History of tobacco use Current smoker [facility] End: 04-10-1999 History of tobacco use User of smokeless tobacco [facility] End: 09-23-1999 History of tobacco use Cigarette Smoker [facility] Work Phone: Start: 01-21-2017 End: 11-24-2021 Tobacco use and exposure Former smokeless tobacco user [facility] Work Phone: Start: 05-24-2022 End: 08-16-2022 Tobacco use panel [facility] National Score (1-10 0), lower number is lower risk 94 [facility] Medical Equipment Procedure Code Equipment Code Equipment Original Text Equipment Identifier Dates Bar-Gx-U-Kind Im plant - [id number] Start: 02-04-2017 Lead Vectris 5mm 60cm Neurostimulator 1x8 Electrode Compact Mri - [id number] Start: 02-04-2017 Lead Vectris 5mm 60cm Neurostimulator 1x8 Electrode Compact Mri - [id number] Start: 02-04-2017 Goals Date Patient Goal Desired Activity /State Personal health goal Clinical Notes 08-28-2021 to 04-06-2023 Telephone Encounter - Carline Cabrera RN - 04/06/2023 10:37 AM ESTTelephone Encounter - Addis Cedillo MA - 01/17/2023 10:54 AM ESTTelephone Encounter - Becca Dudley RN - 12/10/2022 12:38 PM EDT Note Date & Type Note Facility 04-06-2023 Miscellaneous Notes Formattin g of this note is different from the original. Patient phones requesting refills as follows: Requested Prescriptions Pending Prescriptions Disp Refills oxyCODONE (ROXICODONE) 15 mg immediate release tablet 90 tablet 0 Sig: Take 1 tablet by mouth three times a day as needed for pain for up to 30 days. DULoxetine (CYMBALTA) 60 mg capsule 30 capsule 0 Sig: Take 1 capsule by mouth daily at bedtime. DULoxetine (CYMBALTA) 30 mg capsule 30 capsule 0 Sig: Take 1 capsule by mouth once daily. In am Last UDS: No specialty comments available. Summary Report Date Value Ref Range Status 12/06/2022 FINAL Final Comment: == Opiate Class, MS, Ur RFX Oxycodone Class, MS, Ur RFX ToxAssure Flex 23, Ur == Test Result Flag Units Drug Present Oxycodone 3020 ng/mg creat Oxymorphone 317 ng/mg creat Noroxycodone 2764 ng/mg creat Sources of oxycodone include scheduled prescription medications. Oxymorphone and noroxycodone are expected metabolites of oxycodone. Oxymorphone is also available as a scheduled prescription medication. == Test Result Flag Units Ref Range Creatinine 81 mg/dL >=20 == Declared Medications: Medication list was not provided. == For clinical consultation, please call . == No results found for: UQNOTE , OPIATEPNMGT , DRUGSCRPAIN Urine Panel: No results found for: UQCANN , UQBNZL , XNF2FTT , UQAMPH , UQMAMP , UQBUPRE , UQNORBUP , UQMTHD , UQEDDP , UQTRAM , UQDTRM , UQFNTL , UQNFTL , UQCODE , UQMORP , UQDCDN , UQHCOD , UQOXYC , UQHMOR , UQOXYM , UQCREA , UQPH , UQSPGR , UQOXID , UQSPQ @FLOW([id number])@ Lab Results Component Value Date SUMM FINAL 12/06/2022 Summary Report (Summary) Date Value Ref Range Status 11/24/2021 FINAL Final Comment: == TOXASSURE COMP DRUG ANALYSIS,UR == Test Result Flag Units Drug Present Oxycodone 1251 ng/mg creat Oxymorphone 792 ng/mg creat Noroxycodone 3098 ng/mg creat Noroxymorphone 53 ng/mg creat Sources of oxycodone are scheduled prescription medications. Oxymorphone, noroxycodone, and noroxymorphone are expected metabolites of oxycodone. Oxymorphone is also available as a scheduled prescription medication. Duloxetine PRESENT Acetaminophen PRESENT == Test Result Flag Units Ref Range Creatinine 159 mg/dL >=20 == Declared Medications: Medication list was not provided. == For clinical consultation, please call . == Last Opioid agreement effective date: 02/18/2022 Please review and advise. Carline Cabrera RN documented in this encounter [facility] 03-16-2023 Note HNO ID: [id number] Author: JAY MARINA MD Service: ? Author Type: Anesthesiologist Type: Progress Notes Filed: 03/16/2023 15:54 Note Text: Sadia was used to dictate this note and therefore there may be some typographical errors. I attest to the fact that I spent a total of 20 min with the patient to include: Face to face time and non face to face time such as: Reviewing test's, reviewing medical records, reviewing imaging studies, ordering tests, etc. The patient was last seen on 12/06/[address] Casanova. Patient has been followed by Dr. Casanova and her staff. This is a first visit for this patient with me. The notes indicate the patient was to remain on duloxetine 30 mg bedtime, Zanaflex, continue using spinal cord stimulator, and maintain on oxycodone 15 mg 3 times a day. She also was to continue independent exercise program. This again is a first visit for this patient with me. PE: Alert and oriented in some discomfort. Mood and affect within normal limits. Vital signs indicated. Antalgic gait favoring her right leg putting away left. Right foot drop. Unable to dorsiflex on the right side. Dx: Lumbar DDD, lumbar foraminal stenosis, lumbar DJD, lumbar facet arthropathy, lumbar spondylosis, low back pain, lumbar radiculitis, bilateral knee osteoarthritis and bilateral knee pain, gait disturbance, right-sided foot drop, status post spinal cord stimulator, hypertension, hypercholesterolemia, mitral prolapse, obstructive sleep apnea, stage III renal disease, diabetes with diabetic neuropathy, neuropathic pain, chronic pain syndrome, chronic opioid usage. Plan: As above, the patient was last seen on 12/06/[address] Casanova. Patient has been followed by Dr. Casanova and her staff. This is a first visit for this patient with me. The notes indicate the patient was to remain on duloxetine 30 mg bedtime, Zanaflex, continue using spinal cord stimulator, and maintain on oxycodone 15 mg 3 times a day. She also was to continue independent exercise program. This again is a first visit for this patient with me. Patient counseled about chronic opioids, tolerance, the moderate to high dose of opioids that she is currently taking, the need to wean off of the opioids IF indeed she is going to have a painful elective surgery in the future, compliant usage, etc. she voiced understanding. 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 Etc. Clearly her quality life is improved on the above medication. She denies any systemic side effects such as UROLOGY TEACHER side effects, constipation, etc. And agrees to continue to use the medication compliantly. Medications enable her to at least do activities as listed above. Compliant usage. Continue on the Zanaflex, duloxetine, and oxycodone. Dashawn, from [employer], was here to reprogram her spinal cord stimulator. Follow-up with me in 3 months. [facility] 01-17-2023 Miscellaneous Notes Formattin g of this note might be different from the original. Items addressed in this encounter: Prior Authorization Approval for roxicodone 02/21/22-02/20/23 Letter index to chart Able to close encounter. Addis Cedillo MA January 17, 2023 10:55 AM 10:55 AM documented in this encounter [facility] 01-17-2023 Miscellaneous Notes Formattin g of this note might be different from the original. Items addressed in this encounter: Prior Authorization PA submitted for oxyCODONE (ROXICODONE) 15 mg immediate release tablet On cover my meds Rene [id number] Able to close encounter. Addis Cedillo MA January 17, 2023 10:38 AM 10:38 AM documented in this encounter [facility] 01-12-2023 Miscellaneous Notes Formattin g of this note is different from the original. The following approved medication requests have been transmitted electronically. Requested Prescriptions Signed Prescriptions Disp Refills oxyCODONE (ROXICODONE) 15 mg immediate release tablet 90 tablet 0 Sig: Take 1 tablet by mouth three times a day as needed for pain for up to 30 days. Authorizing Provider: BRETT PASTOR APRN.HOME AID Patient phones requesting refills as follows: Requested Prescriptions Pending Prescriptions Disp Refills oxyCODONE (ROXICODONE) 15 mg immediate release tablet 90 tablet 0 Sig: Take 1 tablet by mouth three times a day as needed for pain for up to 30 days. Last UDS: No specialty comments available. Summary Report Date Value Ref Range Status 12/06/2022 FINAL Final Comment: == Opiate Class, MS, Ur RFX Oxycodone Class, MS, Ur RFX ToxAssure Flex 23, Ur == Test Result Flag Units Drug Present Oxycodone 3020 ng/mg creat Oxymorphone 317 ng/mg creat Noroxycodone 2764 ng/mg creat Sources of oxycodone include scheduled prescription medications. Oxymorphone and noroxycodone are expected metabolites of oxycodone. Oxymorphone is also available as a scheduled prescription medication. == Test Result Flag Units Ref Range Creatinine 81 mg/dL >=20 == Declared Medications: Medication list was not provided. == For clinical consultation, please call . == @FLOW([id number])@ Lab Results Component Value Date SUMM FINAL 12/06/2022 Summary Report (Summary) Date Value Ref Range Status 11/24/2021 FINAL Final Comment: == TOXASSURE COMP DRUG ANALYSIS,UR == Test Result Flag Units Drug Present Oxycodone 1251 ng/mg creat Oxymorphone 792 ng/mg creat Noroxycodone 3098 ng/mg creat Noroxymorphone 53 ng/mg creat Sources of oxycodone are scheduled prescription medications. Oxymorphone, noroxycodone, and noroxymorphone are expected metabolites of oxycodone. Oxymorphone is also available as a scheduled prescription medication. Duloxetine PRESENT Acetaminophen PRESENT == Test Result Flag Units Ref Range Creatinine 159 mg/dL >=20 == Declared Medications: Medication list was not provided. == For clinical consultation, please call . == Please review and advise. Carline Cabrera RN documented in this encounter [facility] 01-02-2023 Miscellaneous Notes Formattin g of this note is different from the original. The following approved medication requests have been transmitted electronically. Requested Prescriptions Pending Prescriptions Disp Refills DULoxetine (CYMBALTA) 30 mg capsule 30 capsule 0 Sig: Take 1 capsule by mouth once daily. In am DULoxetine (CYMBALTA) 60 mg capsule 30 capsule 0 Sig: Take 1 capsule by mouth daily at bedtime. Génesis Casanova DO Patient phones requesting refills as follows: Requested Prescriptions Pending Prescriptions Disp Refills DULoxetine (CYMBALTA) 30 mg capsule 30 capsule 0 Sig: Take 1 capsule by mouth once daily. In am DULoxetine (CYMBALTA) 60 mg capsule 30 capsule 0 Sig: Take 1 capsule by mouth daily at bedtime. Last UDS: No specialty comments available. Summary Report Date Value Ref Range Status 12/06/2022 FINAL Final Comment: == Opiate Class, MS, Ur RFX Oxycodone Class, MS, Ur RFX ToxAssure Flex 23, Ur == Test Result Flag Units Drug Present Oxycodone 3020 ng/mg creat Oxymorphone 317 ng/mg creat Noroxycodone 2764 ng/mg creat Sources of oxycodone include scheduled prescription medications. Oxymorphone and noroxycodone are expected metabolites of oxycodone. Oxymorphone is also available as a scheduled prescription medication. == Test Result Flag Units Ref Range Creatinine 81 mg/dL >=20 == Declared Medications: Medication list was not provided. == For clinical consultation, please call . == @FLOW([id number])@ Lab Results Component Value Date SUMM FINAL 12/06/2022 Summary Report (Summary) Date Value Ref Range Status 11/24/2021 FINAL Final Comment: == TOXASSURE COMP DRUG ANALYSIS,UR == Test Result Flag Units Drug Present Oxycodone 1251 ng/mg creat Oxymorphone 792 ng/mg creat Noroxycodone 3098 ng/mg creat Noroxymorphone 53 ng/mg creat Sources of oxycodone are scheduled prescription medications. Oxymorphone, noroxycodone, and noroxymorphone are expected metabolites of oxycodone. Oxymorphone is also available as a scheduled prescription medication. Duloxetine PRESENT Acetaminophen PRESENT == Test Result Flag Units Ref Range Creatinine 159 mg/dL >=20 == Declared Medications: Medication list was not provided. == For clinical consultation, please call . == Please review and advise. Carline Cabrera RN documented in this encounter [facility] 10-22-2023 Miscellaneous Notes Formattin g of this note is different from the original. The following approved medication requests have been transmitted electronically. Requested Prescriptions Pending Prescriptions Disp Refills DULoxetine (CYMBALTA) 60 mg capsule 30 capsule 0 Sig: Take 1 capsule by mouth daily at bedtime. Génesis Casanova DO Last office note does not list duloxetine 60, previously order at hs and 30 in am, please advise Becca Dudley RN December 10, 2022 12:40 PM documented in this encounter [facility] 12-06-2022 Note HNO ID: [id number] Author: Génesis Casanova DO Service: ? Author Type: Physician Type: Progress Notes Filed: 12/06/2022 4:43 PM Note Text: Summary: Pain Management follow-up DATE: December 06, 2022 Chief Complaint: Lower back pain _ History of Present Illness: Michelle Self is a 62 year old female being seen at [facility] for a evaluation and/or management of their chronic pain. The patient was last seen in the office by on 08/31/2022 and the plan of care was as follows: Continue duloxetine 30 mg tablet once at bedtime Continue zanaflex Continue SCS use as needed. Continue oxycodone 15 mg one tab tid prn. Avoid NSAIDs use. Continue Lidocaine/prilocaine topical cream prn Follow-up in 3 months in office with SQL PROGRAMMER ANALYST Start daily stretching/exercises as tolerated Schedule Synvisc one gel injection for right knee Follow-up in 3 months with Pain level: 8-9/10 Pain: generalized body pain, hands, leg, foot Reports pain worse with any activity, cold weather Reports pain better with sleep, medications, SCS Describes pain in lower back as constant ache that becomes sharp at times. States less radiates to right butt, hips and legs bilaterally. The pain goes past the right knee. There are sciatica symptoms present. She states that she has poor balance. Numbness/tingling: denies Describes pain in knees as intermittent ache. Improved. States had steroid injection in right knee by ortho last month. Falls: Stumbling, has a drop foot brace. She does not wear the drop foot brace, because it is too tight. She denies any bowel dysfunction. She has urinary retention. She gets 5 hours of sleep at nights and feels unrested in the mornings. Last UDS: consistent Summary Report Date Value Ref Range Status 04/20/2022 FINAL Final Comment: == Opiate Class, MS, Ur RFX Oxycodone Class, MS, Ur RFX ToxAssure Flex 23, Ur == Test Result Flag Units Drug Present Oxycodone 3383 ng/mg creat Oxymorphone 1708 ng/mg creat Noroxycodone 4840 ng/mg creat Noroxymorphone 136 ng/mg creat Sources of oxycodone are scheduled prescription medications. Oxymorphone, noroxycodone, and noroxymorphone are expected metabolites of oxycodone. Oxymorphone is also available as a scheduled prescription medication. == Test Result Flag Units Ref Range Creatinine 159 mg/dL >=20 == Declared Medications: Medication list was not provided. == For clinical consultation, please call . == Summary Report (Summary) Date Value Ref Range Status 11/24/2021 FINAL Final Comment: == TOXASSURE COMP DRUG ANALYSIS,UR == Test Result Flag Units Drug Present Oxycodone 1251 ng/mg creat Oxymorphone 792 ng/mg creat Noroxycodone 3098 ng/mg creat Noroxymorphone 53 ng/mg creat Sources of oxycodone are scheduled prescription medications. Oxymorphone, noroxycodone, and noroxymorphone are expected metabolites of oxycodone. Oxymorphone is also available as a scheduled prescription medication. Duloxetine PRESENT Acetaminophen PRESENT == Test Result Flag Units Ref Range Creatinine 159 mg/dL >=20 == Declared Medications: Medication list was not provided. == For clinical consultation, please call . == Chronic Pain Functional Assessment Tools Pain Disability Index: Pain Disability Index 09/20/2022 12/06/2022 Family/Home Responsibilities 5 8 Recreation 5 8 Social Activity 5 8 Occupation 5 0 No disability Sexual Behavior 5 8 Self Care 5 0 No disability Life Support Activity 5 8 PDI Score 35 40 Pain Enjoyment of Life and General Activity Scale (0-10): PEG: A Three-Item Scale Assessing Pain Intensity and Interference What number best describes your pain on average in the past week?: 8 (12/06/2022 10:00 AM) What number best describes how, during the past week, pain has interfered with your enjoyment of li (more content not included)... [facility] 12-06-2022 Instructions Génesis Casanova DO - 12/06/2022 10:46 AM EDT Continue duloxetine 30 mg tablet once at bedtime Continue zanaflex Continue Medtronic SCS use. Inquire about battery replacement after 7+ years of use. Continue oxycodone 15 mg one tab tid prn. Avoid NSAIDs use. Continue Lidocaine/prilocaine topical cream prn Continue daily stretching/exercises as tolerated Schedule Synvisc one gel injection for right knee prn, every 6 months Follow-up in 3 months with or SQL PROGRAMMER ANALYST Try to wear right foot drop brace more consistently for fall prevention. documented in this encounter [facility] 12-06-2022 History of Presen t illness Narrative Summary: Pain Management follow-up DATE: December 06, 2022 Chief Complaint: Lower back pain _ History of Present Illness: Michelle Self is a 62 year old female being seen at [facility] for a evaluation and/or management of their chronic pain. The patient was last seen in the office by on 08/31/2022 and the plan of care was as follows: Continue duloxetine 30 mg tablet once at bedtime Continue zanaflex Continue SCS use as needed. Continue oxycodone 15 mg one tab tid prn. Avoid NSAIDs use. Continue Lidocaine/prilocaine topical cream prn Follow-up in 3 months in office with SQL PROGRAMMER ANALYST Start daily stretching/exercises as tolerated Schedule Synvisc one gel injection for right knee Follow-up in 3 months with Pain level: 8-9/10 Pain: generalized body pain, hands, leg, foot Reports pain worse with any activity, cold weather Reports pain better with sleep, medications, SCS Describes pain in lower back as constant ache that becomes sharp at times. States less radiates to right butt, hips and legs bilaterally. The pain goes past the right knee. There are sciatica symptoms present. She states that she has poor balance. Numbness/tingling: denies Describes pain in knees as intermittent ache. Improved. States had steroid injection in right knee by ortho last month. Falls: Stumbling, has a drop foot brace. She does not wear the drop foot brace, because it is too tight. She denies any bowel dysfunction. She has urinary retention. She gets 5 hours of sleep at nights and feels unrested in the mornings. Last UDS: consistent Summary Report Date Value Ref Range Status 04/20/2022 FINAL Final Comment: == Opiate Class, MS, Ur RFX Oxycodone Class, MS, Ur RFX ToxAssure Flex 23, Ur == Test Result Flag Units Drug Present Oxycodone 3383 ng/mg creat Oxymorphone 1708 ng/mg creat Noroxycodone 4840 ng/mg creat Noroxymorphone 136 ng/mg creat Sources of oxycodone are scheduled prescription medications. Oxymorphone, noroxycodone, and noroxymorphone are expected metabolites of oxycodone. Oxymorphone is also available as a scheduled prescription medication. == Test Result Flag Units Ref Range Creatinine 159 mg/dL >=20 == Declared Medications: Medication list was not provided. == For clinical consultation, please call . == Summary Report (Summary) Date Value Ref Range Status 11/24/2021 FINAL Final Comment: == TOXASSURE COMP DRUG ANALYSIS,UR == Test Result Flag Units Drug Present Oxycodone 1251 ng/mg creat Oxymorphone 792 ng/mg creat Noroxycodone 3098 ng/mg creat Noroxymorphone 53 ng/mg creat Sources of oxycodone are scheduled prescription medications. Oxymorphone, noroxycodone, and noroxymorphone are expected metabolites of oxycodone. Oxymorphone is also available as a scheduled prescription medication. Duloxetine PRESENT Acetaminophen PRESENT == Test Result Flag Units Ref Range Creatinine 159 mg/dL >=20 == Declared Medications: Medication list was not provided. == For clinical consultation, please call . == Chronic Pain Functional Assessment Tools Pain Disability Index: Pain Disability Index 09/20/2022 12/06/2022 Family/Home Responsibilities 5 8 Recreation 5 8 Social Activity 5 8 Occupation 5 0 No disability Sexual Behavior 5 8 Self Care 5 0 No disability Life Support Activity 5 8 PDI Score 35 40 Pain Enjoyment of Life and General Activity Scale (0-10): PEG: A Three-Item Scale Assessing Pain Intensity and Interference What number best describes your pain on average in the past week?: 8 (12/06/2022 10:00 AM) What number best describes how, during the past week, pain has interfered with your enjoyment of life?: 8 (12/06/2022 10:00 AM) What number best describes how, during the past week, pain has interfered with your general activity?: 8 (12/06/2022 10:00 AM) REVIEW OF SYSTEMS: GENERAL: No weight loss, malaise or fevers RESPIRATORY: Negative for cough, hemoptysis, wheezing, COPD, dyspnea or shortness of breath. CARDIOVASCULAR: Negative for chest pain, leg swelling, hypertension, CHF or palpitations GI: No nausea, vomiting, or diarrhea. MUSCULOSKELETAL: Positive for lower back pain that radiates to butt, hips and legs bilaterally. Positive for sciatica symptoms. ____ PAST MEDICAL HISTORY Diagnosis Date Constipation Depression Fibromyalgia Foot drop right Graves disease graves disease HTN (hypertension) Hypothyroid LBP (low back pain) DDD lumbar spine, arthropathy of lumbar facet joint Mitral valve prolapse Obesities, morbid (HCC) Other malaise and fatigue RLS (restless legs syndrome) PAST SURGICAL HISTORY Procedure Laterality Date DELIVERY ONLY , low cervical x2 LIG/TRNSXJ FLP TUBE ABDL/VAG APPR UNI/BI Tubal ligation PAST SURGICAL HISTORY OF thymus- enlarged PAST SURGICAL HISTORY OF eye, left FAMILY HISTORY Problem Relation Age of Onset Diabetes Paternal Grandfather Social History Tobacco Use Smoking status: Former Types: Cigarettes Quit date: 09/23/1999 Years since quittin.2 Smokeless tobacco: Former Quit date: 04/10/1999 Substance Use Topics Alcohol use: No Drug use: No Work Status: not working Allergies: Adhesive Tape-Silic* Rash, Unknown Erythromycin Rash, Unknown Chloroxylenol Other: See Comments Comment:Per patient no recent allergy r/t soap (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 In am DULoxetine (CYMBALTA) 60 mg capsule Take 1 capsule by mouth daily at bedtime. FARXIGA 10 mg tablet hydrOXYchloroQUINE (PLAQUENIL) 200 mg tablet leflunomide (ARAVA) 10 mg tablet Take 15 mg by mouth once daily. leflunomide (ARAVA) 20 mg tablet Take 20 mg by mouth once daily. levocetirizine 5 mg tablet TAKE 1 TABLET BY MOUTH EVERY EVENING NEEDED ALLERGY SYMPTOMS levothyroxine (SYNTHROID) 200 mcg tablet Take 1 tablet by mouth every afternoon. levothyroxine (SYNTHROID) 25 mcg tablet Take 1 tablet by mouth every afternoon. lidocaine-prilocaine (EMLA) 2.5-2.5 % cream Apply to affected area as needed. loratadine (CLARITIN) 10 mg tablet Take by mouth. metroNIDAZOLE (FLAGYL) 500 mg tablet Take 500 mg by mouth three times daily. montelukast (SINGULAIR) 10 mg tablet Take 10 mg by mouth daily at bedtime. mupirocin (BACTROBAN) 2 % ointment Apply to affected area three times daily. oxyCODONE (ROXICODONE) 15 mg immediate release tablet Take 1 tablet by mouth three times daily as needed for pain for up to 30 days. Do not start before November 13, 2022. oxyCODONE-acetaminophen (PERCOCET 10) 10-325 mg tablet Take by mouth. OZEMPIC 1 mg/dose (4 mg/3 mL) pen injector predniSONE (DELTASONE) 10 mg tablet Take 10 mg by mouth. No current facility-administered medications for this visit. PHYSICAL EXAMINATION: Vitals: BP 158/92 Pulse 64 Resp 18 Ht 5' 4 (1.63m) Wt 350 lb 3.2 oz (158.9kg) SpO2 96% BMI 60.08 kg/(m^2). GENERAL: General appearance: Well appearing, in no acute distress, alert. Patient is morbidly obese. She has an antalgic gait. She does not use a cane or walker for ambulation. Psych: Mood and affect appropriate. Skin: Skin color, texture, turgor normal, no rashes or lesion. Pulm: no conversational shortness of breath GI: Abdomen soft and non-tender. Musculoskeletal: Deferred toe and heel raise. Right foot drop appreciated. Lumbar range of motion with mild restriction throughout. Negative straight leg raise from sitting position bilaterally. Negative Fabere sign bilaterally. Negative right knee pain with palpation over knee cap. Negative pain with valgus/varus stress. Negative shelf test. Muscle strength 5/5 bilateral muscle strength. Right hand pain: positive Tinel's and Phalen's test ASSESSMENT: Chronic pain syndrome (primary encounter diagnosis) Displacement of lumbar intervertebral disc without myelopathy Osteoarthritis of both knees, unspecified osteoarthritis type Other spondylosis, lumbosacral region Lumbar radiculopathy High risk medication use Encounter for long-term (current) use of high-risk medication Generalized osteoarthrosis, involving multiple sites Inflammatory spondylopathy of lumbar region (hcc) Myofascial pain syndrome Right carpal tunnel syndrome [g56.01 (icd-10-cm)] Morbid obesity (hcc) Patient is stable. Chronic pain is persistent. Medications are helping Michelle Self to have an improved quality of life. Patient compliance with Opioid Contract: patient is compliant PLAN: The patient understands the goal of our treatment is a reduction in pain and/or an improved level of functioning with activities of daily living. If at any time the patient does not feel the medications are helping them to achieve these goals, the medications may be discontinued. The patient reports a reduction in pain and/or an improved level of functioning with activities of daily living, denies any significant adverse effects, is compliant with the pain management agreement and there are no signs of medication misuse, abuse or diversion; therefore, the medications will be continued. Scribed for Génesis Casanova DO, by Tiffani Casas medical services coordinator, December 06, 2022. documented in this encounter [facility] 11-09-2022 Miscellaneous Notes Formattin g of this note is different from the original. The following approved medication requests have been transmitted electronically. Requested Prescriptions Signed Prescriptions Disp Refills oxyCODONE (ROXICODONE) 15 mg immediate release tablet 90 tablet 0 Sig: Take 1 tablet by mouth three times daily as needed for pain for up to 30 days. Do not start before November 13, 2022. Authorizing Provider: ESTEPHANIA RONDON DULoxetine (CYMBALTA) 60 mg capsule 30 capsule 0 Sig: Take 1 capsule by mouth daily at bedtime. Authorizing Provider: ESTEPHANIA RONDON DULoxetine (CYMBALTA) 30 mg capsule 30 capsule 0 Sig: Take 1 capsule by mouth once daily. In am Authorizing Provider: ESTEPHANIA RONDON APRN.CNP Patient phones requesting refills as follows: Requested Prescriptions Pending Prescriptions Disp Refills oxyCODONE (ROXICODONE) 15 mg immediate release tablet 90 tablet 0 Sig: Take 1 tablet by mouth three times daily as needed for pain for up to 30 days. DULoxetine (CYMBALTA) 60 mg capsule 30 capsule 0 Sig: Take 1 capsule by mouth daily at bedtime. DULoxetine (CYMBALTA) 30 mg capsule 30 capsule 0 Sig: Take 1 capsule by mouth once daily. In am Last UDS: Summary Report Date Value Ref Range Status 04/20/2022 FINAL Final Comment: == Opiate Class, MS, Ur RFX Oxycodone Class, MS, Ur RFX ToxAssure Flex 23, Ur == Test Result Flag Units Drug Present Oxycodone 3383 ng/mg creat Oxymorphone 1708 ng/mg creat Noroxycodone 4840 ng/mg creat Noroxymorphone 136 ng/mg creat Sources of oxycodone are scheduled prescription medications. Oxymorphone, noroxycodone, and noroxymorphone are expected metabolites of oxycodone. Oxymorphone is also available as a scheduled prescription medication. == Test Result Flag Units Ref Range Creatinine 159 mg/dL >=20 == Declared Medications: Medication list was not provided. == For clinical consultation, please call . == @FLOW([id number])@ Lab Results Component Value Date SUMM FINAL 04/20/2022 Summary Report (Summary) Date Value Ref Range Status 11/24/2021 FINAL Final Comment: == TOXASSURE COMP DRUG ANALYSIS,UR == Test Result Flag Units Drug Present Oxycodone 1251 ng/mg creat Oxymorphone 792 ng/mg creat Noroxycodone 3098 ng/mg creat Noroxymorphone 53 ng/mg creat Sources of oxycodone are scheduled prescription medications. Oxymorphone, noroxycodone, and noroxymorphone are expected metabolites of oxycodone. Oxymorphone is also available as a scheduled prescription medication. Duloxetine PRESENT Acetaminophen PRESENT == Test Result Flag Units Ref Range Creatinine 159 mg/dL >=20 == Declared Medications: Medication list was not provided. == For clinical consultation, please call . == Please review and advise. Carline Cabrera RN documented in this encounter [facility] 10-09-2022 Miscellaneous Notes Formattin g of this note is different from the original. The following approved medication requests have been transmitted electronically. Requested Prescriptions Pending Prescriptions Disp Refills oxyCODONE (ROXICODONE) 15 mg immediate release tablet 90 tablet 0 Sig: Take 1 tablet by mouth three times daily as needed for pain for up to 30 days. Do not start before October 13, 2022. DULoxetine (CYMBALTA) 30 mg capsule 30 capsule 0 Sig: Take 1 capsule by mouth once daily. In am DULoxetine (CYMBALTA) 60 mg capsule 30 capsule 0 Sig: Take 1 capsule by mouth daily at bedtime. Génesis Casanova DO Patient phones requesting refills as follows: Requested Prescriptions Pending Prescriptions Disp Refills oxyCODONE (ROXICODONE) 15 mg immediate release tablet 90 tablet 0 Sig: Take 1 tablet by mouth three times daily as needed for pain for up to 30 days. DULoxetine (CYMBALTA) 30 mg capsule 30 capsule 0 Sig: Take 1 capsule by mouth once daily. In am DULoxetine (CYMBALTA) 60 mg capsule 30 capsule 0 Sig: Take 1 capsule by mouth daily at bedtime. Last UDS: Summary Report Date Value Ref Range Status 04/20/2022 FINAL Final Comment: == Opiate Class, MS, Ur RFX Oxycodone Class, MS, Ur RFX ToxAssure Flex 23, Ur == Test Result Flag Units Drug Present Oxycodone 3383 ng/mg creat Oxymorphone 1708 ng/mg creat Noroxycodone 4840 ng/mg creat Noroxymorphone 136 ng/mg creat Sources of oxycodone are scheduled prescription medications. Oxymorphone, noroxycodone, and noroxymorphone are expected metabolites of oxycodone. Oxymorphone is also available as a scheduled prescription medication. == Test Result Flag Units Ref Range Creatinine 159 mg/dL >=20 == Declared Medications: Medication list was not provided. == For clinical consultation, please call . == @FLOW([id number])@ Lab Results Component Value Date SUMM FINAL 04/20/2022 Summary Report (Summary) Date Value Ref Range Status 11/24/2021 FINAL Final Comment: == TOXASSURE COMP DRUG ANALYSIS,UR == Test Result Flag Units Drug Present Oxycodone 1251 ng/mg creat Oxymorphone 792 ng/mg creat Noroxycodone 3098 ng/mg creat Noroxymorphone 53 ng/mg creat Sources of oxycodone are scheduled prescription medications. Oxymorphone, noroxycodone, and noroxymorphone are expected metabolites of oxycodone. Oxymorphone is also available as a scheduled prescription medication. Duloxetine PRESENT Acetaminophen PRESENT == Test Result Flag Units Ref Range Creatinine 159 mg/dL >=20 == Declared Medications: Medication list was not provided. == For clinical consultation, please call . == Please review and advise. Becca Dudley, RN documented in this encounter [facility] 09-20-2022 Note HNO ID: [id number] Author: Génesis Casanova, DO Service: ? Author Type: Physician Type: Progress Notes Filed: 09/23/2022 2:28 PM Note Text: Summary: Pain Management follow-up DATE: September 20, 2022 Chief Complaint: generalized body pain, right knee _ History of Present Illness: Michelle Self is a 61 year old female being seen at [facility] for a evaluation and/or management of their chronic pain. The patient was last seen in the office by Dr. Casanova on 05/24/2022 and the plan of care was as follows: Continue duloxetine Continue zanaflex Continue SCS use as needed. Continue oxycodone 15mg one tab tid prn. OARRS reviewed and consistent. Continue diet efforts No NSAIDs use. Start Lidocaine/prilocaine topical cream prn Wear right wrist splint for carpal tunnel symptoms Followup in 3 months in office with Dr. Casanova. She had a right knee gel injection almost 2 years ago and had 80% relief that lasted for about 4 years. The Gabapentin was restarted at the last office visit and she reports she is not active at home due to her pain. We discussed daily exercises and stretching exercises. She was bitten by her dog and was seen in the ED after an infection started within 24 hours of the bite. She is currently taking her oxycodone and lidocaine prilocaine cream with benefit and no adverse side effects. She would like to have a repeat right knee gel injection for additional pain control. Pain level:9/10 Pain: generalized body pain Reports pain worse with any activity, cold weather Reports pain better with sleep, medications, SCS Describes pain in lower back as constant ache that becomes sharp at times. States less radiates to butt, hips and legs bilaterally Numbness/tingling: denies Describes pain in knees as intermittent ache. Improved. States had steroid injection in right knee by ortho last month. Falls: Stumbling, has a drop foot. She denies any bowel dysfunction. She has urinary retention. She gets 5 hours of sleep at nights and feels unrested in the mornings. Last UDS: consistent Summary Report Date Value Ref Range Status 04/20/2022 FINAL Final Comment: == Opiate Class, MS, Ur RFX Oxycodone Class, MS, Ur RFX ToxAssure Flex 23, Ur == Test Result Flag Units Drug Present Oxycodone 3383 ng/mg creat Oxymorphone 1708 ng/mg creat Noroxycodone 4840 ng/mg creat Noroxymorphone 136 ng/mg creat Sources of oxycodone are scheduled prescription medications. Oxymorphone, noroxycodone, and noroxymorphone are expected metabolites of oxycodone. Oxymorphone is also available as a scheduled prescription medication. == Test Result Flag Units Ref Range Creatinine 159 mg/dL >=20 == Declared Medications: Medication list was not provided. == For clinical consultation, please call . == Summary Report (Summary) Date Value Ref Range Status 11/24/2021 FINAL Final Comment: == TOXASSURE COMP DRUG ANALYSIS,UR == Test Result Flag Units Drug Present Oxycodone 1251 ng/mg creat Oxymorphone 792 ng/mg creat Noroxycodone 3098 ng/mg creat Noroxymorphone 53 ng/mg creat Sources of oxycodone are scheduled prescription medications. Oxymorphone, noroxycodone, and noroxymorphone are expected metabolites of oxycodone. Oxymorphone is also available as a scheduled prescription medication. Duloxetine PRESENT Acetaminophen PRESENT == Test Result Flag Units Ref Range Creatinine 159 mg/dL >=20 == Declared Medications: Medication list was not provided. == For clinical consultation, please call . == Chronic Pain Functional Assessment Tools Pain Disability Index: Pain Disability Index 04/19/2022 09/20/2022 Family/Home Responsibilities 5 5 Recreation 5 5 Social Activity 5 5 Occupation 5 5 Sexual Behavior 5 5 Self Care 5 5 Life Support Activity 5 5 PDI Score 35 35 Pain Enjoyment of Life (more content not included)... [facility] 09-20-2022 Instructions Génesis Casanova DO - 09/20/2022 11:09 AM EDT Continue duloxetine 30 mg tablet once at bedtime Continue zanaflex Continue SCS use as needed. Continue oxycodone 15 mg one tab tid prn. Avoid NSAIDs use. 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 The patient was last seen in the office by Dr. Casanova on 05/24/2022 and the plan of care was as follows: Continue duloxetine Continue zanaflex Continue SCS use as needed. Continue oxycodone 15mg one tab tid prn. OARRS reviewed and consistent. Continue diet efforts No NSAIDs use. Start Lidocaine/prilocaine topical cream prn Wear right wrist splint for carpal tunnel symptoms Followup in 3 months in office with Dr. Casanova. She had a right knee gel injection almost 2 years ago and had 80% relief that lasted for about 4 years. The Gabapentin was restarted at the last office visit and she reports she is not active at home due to her pain. We discussed daily exercises and stretching exercises. She was bitten by her dog and was seen in the ED after an infection started within 24 hours of the bite. She is currently taking her oxycodone and lidocaine prilocaine cream with benefit and no adverse side effects. She would like to have a repeat right knee gel injection for additional pain control. Pain level:9/10 Pain: generalized body pain Reports pain worse with any activity, cold weather Reports pain better with sleep, medications, SCS Describes pain in lower back as constant ache that becomes sharp at times. States less radiates to butt, hips and legs bilaterally Numbness/tingling: denies Describes pain in knees as intermittent ache. Improved. States had steroid injection in right knee by ortho last month. Falls: Stumbling, has a drop foot. She denies any bowel dysfunction. She has urinary retention. She gets 5 hours of sleep at nights and feels unrested in the mornings. Last UDS: consistent Summary Report Date Value Ref Range Status 04/20/2022 FINAL Final Comment: == Opiate Class, MS, Ur RFX Oxycodone Class, MS, Ur RFX ToxAssure Flex 23, Ur == Test Result Flag Units Drug Present Oxycodone 3383 ng/mg creat Oxymorphone 1708 ng/mg creat Noroxycodone 4840 ng/mg creat Noroxymorphone 136 ng/mg creat Sources of oxycodone are scheduled prescription medications. Oxymorphone, noroxycodone, and noroxymorphone are expected metabolites of oxycodone. Oxymorphone is also available as a scheduled prescription medication. == Test Result Flag Units Ref Range Creatinine 159 mg/dL >=20 == Declared Medications: Medication list was not provided. == For clinical consultation, please call . == Summary Report (Summary) Date Value Ref Range Status 11/24/2021 FINAL Final Comment: == TOXASSURE COMP DRUG ANALYSIS,UR == Test Result Flag Units Drug Present Oxycodone 1251 ng/mg creat Oxymorphone 792 ng/mg creat Noroxycodone 3098 ng/mg creat Noroxymorphone 53 ng/mg creat Sources of oxycodone are scheduled prescription medications. Oxymorphone, noroxycodone, and noroxymorphone are expected metabolites of oxycodone. Oxymorphone is also available as a scheduled prescription medication. Duloxetine PRESENT Acetaminophen PRESENT == Test Result Flag Units Ref Range Creatinine 159 mg/dL >=20 == Declared Medications: Medication list was not provided. == For clinical consultation, please call . == Chronic Pain Functional Assessment Tools Pain Disability Index: Pain Disability Index 04/19/2022 09/20/2022 Family/Home Responsibilities 5 5 Recreation 5 5 Social Activity 5 5 Occupation 5 5 Sexual Behavior 5 5 Self Care 5 5 Life Support Activity 5 5 PDI Score 35 35 Pain Enjoyment of Life and General Activity Scale (0-10): PEG: A Three-Item Scale Assessing Pain Intensity and Interference What number best describes your pain on average in the past week?: 7 (09/20/2022 10:00 AM) What number best describes how, during the past week, pain has interfered with your enjoyment of life?: 7 (09/20/2022 10:00 AM) What number best describes how, during the past week, pain has interfered with your general activity?: 6 (09/20/2022 10:00 AM) REVIEW OF SYSTEMS: GENERAL: No weight loss, malaise or fevers RESPIRATORY: Negative for cough, hemoptysis, wheezing, COPD, dyspnea or shortness of breath. CARDIOVASCULAR: Negative for chest pain, leg swelling, hypertension, CHF or palpitations GI: No nausea, vomiting, or diarrhea. MUSCULOSKELETAL: generalized body pain, right knee ____ PAST MEDICAL HISTORY Diagnosis Date Constipation Depression Fibromyalgia Foot drop right Graves disease graves disease HTN (hypertension) Hypothyroid LBP (low back pain) DDD lumbar spine, arthropathy of lumbar facet joint Mitral valve prolapse Obesities, morbid (HCC) Other malaise and fatigue RLS (restless legs syndrome) PAST SURGICAL HISTORY Procedure Laterality Date DELIVERY ONLY , low cervical x2 LIG/TRNSXJ FLP TUBE ABDL/VAG APPR UNI/BI Tubal ligation PAST SURGICAL HISTORY OF thymus- enlarged PAST SURGICAL HISTORY OF eye, left FAMILY HISTORY Problem Relation Age of Onset Diabetes Paternal Grandfather Social History Tobacco Use Smoking status: Former Types: Cigarettes Quit date: 09/23/1999 Years since quittin.0 Smokeless tobacco: Former Quit date: 04/10/1999 Substance Use Topics Alcohol use: No Drug use: No Work Status: Retired Allergies: Adhesive Tape-Silic* Rash, Unknown Erythromycin Rash, Unknown Chloroxylenol Other: See Comments Comment:Per patient no recent allergy r/t soap (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 metroNIDAZOLE (FLAGYL) 500 mg tablet Take 500 mg by mouth three times daily. mupirocin (BACTROBAN) 2 % ointment Apply to affected area three times daily. oxyCODONE (ROXICODONE) 15 mg immediate release tablet Take 1 tablet by mouth three times daily as needed for pain for up to 30 days. DULoxetine (CYMBALTA) 30 mg capsule Take 1 capsule by mouth once daily. In am DULoxetine (CYMBALTA) 60 mg capsule Take 1 capsule by mouth daily at bedtime. leflunomide (ARAVA) 20 mg tablet Take 20 mg by mouth once daily. hydrOXYchloroQUINE (PLAQUENIL) 200 mg tablet montelukast (SINGULAIR) 10 mg tablet Take 10 mg by mouth daily at bedtime. oxyCODONE-acetaminophen (PERCOCET 10) 10-325 mg tablet Take by mouth. predniSONE (DELTASONE) 10 mg tablet Take 10 mg by mouth. leflunomide (ARAVA) 10 mg tablet Take 15 mg by mouth once daily. loratadine (CLARITIN) 10 mg tablet Take by mouth. amLODIPine (NORVASC) 2.5 mg tablet OZEMPIC 1 mg/dose (4 mg/3 mL) pen injector lidocaine-prilocaine (EMLA) 2.5-2.5 % cream Apply to affected area as needed. No current facility-administered medications for this visit. PHYSICAL EXAMINATION: Vitals: BP 157/96 Pulse 74 Resp 19 Ht 5' 3.6 (1.62m) Wt 355 lb (161.0kg) SpO2 98% BMI 61.74 kg/(m^2). GENERAL: General appearance: Well appearing, in no acute distress, alert. Patient is morbidly obese. She has an antalgic gait. She does not use a cane or walker for ambulation. Psych: Mood and affect appropriate. Skin: Skin color, texture, turgor normal, no rashes or lesion. Pulm: no conversational shortness of breath GI: Abdomen soft and non-tender. Musculoskeletal: Deferred toe and heel raise. Right foot drop appreciated. Lumbar range of motion with mild restriction throughout. Negative straight leg raise from sitting position bilaterally. Negative Fabere sign bilaterally. Negative right knee pain with palpation over knee cap. Negative pain with valgus/varus stress. Negative shelf test. Muscle strength 5/5 bilateral muscle strength. Right hand pain: positive Tinel's and Phalen's test ASSESSMENT: Chronic pain syndrome (primary encounter diagnosis) Displacement of lumbar intervertebral disc without myelopathy Other spondylosis, lumbosacral region Osteoarthritis of both knees, unspecified osteoarthritis type Lumbar radiculopathy High risk medication use Encounter for long-term (current) use of high-risk medication Generalized osteoarthrosis, involving multiple sites Inflammatory spondylopathy of lumbar region (hcc) Myofascial pain syndrome Right carpal tunnel syndrome [g56.01 (icd-10-cm)] Morbid obesity (hcc) Patient is stable. Chronic pain is persistent. Medications are helping Michelle Self to have an improved quality of life. Patient compliance with Opioid Contract: patient is compliant PDMP website checked and validated. OARRS report reviewed on September 20, 2022 by Divine Wright and is consistent with the patients medical history and medication intake. PLAN: The patient understands the goal of our treatment is a reduction in pain and/or an improved level of functioning with activities of daily living. If at any time the patient does not feel the medications are helping them to achieve these goals, the medications may be discontinued. The patient reports a reduction in pain and/or an improved level of functioning with activities of daily living, denies any significant adverse effects, is compliant with the pain management agreement and there are no signs of medication misuse, abuse or diversion; therefore, the medications will be continued. The documentation for this encounter was entered by Divine Wright, medical services coordinator for Dr. Génesis Casanova on September 20, 2022. I, Dr. Génesis Casanova, personally performed the services described in this documentation. All medical record entries made by the scribe were at my direction and in my presence. I have reviewed the chart and discharge instructions and agree that the record reflects my personal performance and is accurate and complete. Electronically Signed: Dr. Casanova. September 20, 2022. documented in this encounter [facility] 09-08-2022 Miscellaneous Notes Formattin g of this note is different from the original. The following approved medication requests have been transmitted electronically. Requested Prescriptions Signed Prescriptions Disp Refills DULoxetine (CYMBALTA) 30 mg capsule 30 capsule 0 Sig: Take 1 capsule by mouth once daily. In am Authorizing Provider: SUSY ALONSO DULoxetine (CYMBALTA) 60 mg capsule 30 capsule 0 Sig: Take 1 capsule by mouth daily at bedtime. Authorizing Provider: SUSY ALONSO oxyCODONE (ROXICODONE) 15 mg immediate release tablet 90 tablet 0 Sig: Take 1 tablet by mouth three times daily as needed for pain for up to 30 days. Do not start before September 11, 2022. Authorizing Provider: SUSY ALONSO APRN.UROLOGY TEACHER Patient phones requesting refills as follows: Requested Prescriptions Pending Prescriptions Disp Refills DULoxetine (CYMBALTA) 30 mg capsule 30 capsule 0 Sig: Take 1 capsule by mouth once daily. In am DULoxetine (CYMBALTA) 60 mg capsule 30 capsule 0 Sig: Take 1 capsule by mouth daily at bedtime. oxyCODONE (ROXICODONE) 15 mg immediate release tablet 90 tablet 0 Sig: Take 1 tablet by mouth three times daily as needed for pain for up to 30 days. Last UDS: Summary Report Date Value Ref Range Status 04/20/2022 FINAL Final Comment: == Opiate Class, MS, Ur RFX Oxycodone Class, MS, Ur RFX ToxAssure Flex 23, Ur == Test Result Flag Units Drug Present Oxycodone 3383 ng/mg creat Oxymorphone 1708 ng/mg creat Noroxycodone 4840 ng/mg creat Noroxymorphone 136 ng/mg creat Sources of oxycodone are scheduled prescription medications. Oxymorphone, noroxycodone, and noroxymorphone are expected metabolites of oxycodone. Oxymorphone is also available as a scheduled prescription medication. == Test Result Flag Units Ref Range Creatinine 159 mg/dL >=20 == Declared Medications: Medication list was not provided. == For clinical consultation, please call . == @FLOW([id number])@ Lab Results Component Value Date SUMM FINAL 04/20/2022 Summary Report (Summary) Date Value Ref Range Status 11/24/2021 FINAL Final Comment: == TOXASSURE COMP DRUG ANALYSIS,UR == Test Result Flag Units Drug Present Oxycodone 1251 ng/mg creat Oxymorphone 792 ng/mg creat Noroxycodone 3098 ng/mg creat Noroxymorphone 53 ng/mg creat Sources of oxycodone are scheduled prescription medications. Oxymorphone, noroxycodone, and noroxymorphone are expected metabolites of oxycodone. Oxymorphone is also available as a scheduled prescription medication. Duloxetine PRESENT Acetaminophen PRESENT == Test Result Flag Units Ref Range Creatinine 159 mg/dL >=20 == Declared Medications: Medication list was not provided. == For clinical consultation, please call . == Please review and advise. Carline Cabrera RN documented in this encounter [facility] 08-09-2022 Miscellaneous Notes Formattin g of this note is different from the original. The following approved medication requests have been transmitted electronically. Requested Prescriptions Signed Prescriptions Disp Refills DULoxetine (CYMBALTA) 30 mg capsule 30 capsule 0 Sig: Take 1 capsule by mouth once daily. In am Authorizing Provider: SUSY ALONSO DULoxetine (CYMBALTA) 60 mg capsule 30 capsule 0 Sig: Take 1 capsule by mouth daily at bedtime. Authorizing Provider: SUSY ALONSO oxyCODONE (ROXICODONE) 15 mg immediate release tablet 90 tablet 0 Sig: Take 1 tablet by mouth three times daily as needed for pain for up to 30 days. Do not start before August 12, 2022. Authorizing Provider: SUSY ALONSO APRN.UROLOGY TEACHER Patient phones requesting refills as follows: Requested Prescriptions Pending Prescriptions Disp Refills DULoxetine (CYMBALTA) 30 mg capsule 30 capsule 0 Sig: Take 1 capsule by mouth once daily. In am DULoxetine (CYMBALTA) 60 mg capsule 30 capsule 0 Sig: Take 1 capsule by mouth daily at bedtime. oxyCODONE (ROXICODONE) 15 mg immediate release tablet 90 tablet 0 Sig: Take 1 tablet by mouth three times daily as needed for pain for up to 30 days. Last UDS: Summary Report Date Value Ref Range Status 04/20/2022 FINAL Final Comment: == Opiate Class, MS, Ur RFX Oxycodone Class, MS, Ur RFX ToxAssure Flex 23, Ur == Test Result Flag Units Drug Present Oxycodone 3383 ng/mg creat Oxymorphone 1708 ng/mg creat Noroxycodone 4840 ng/mg creat Noroxymorphone 136 ng/mg creat Sources of oxycodone are scheduled prescription medications. Oxymorphone, noroxycodone, and noroxymorphone are expected metabolites of oxycodone. Oxymorphone is also available as a scheduled prescription medication. == Test Result Flag Units Ref Range Creatinine 159 mg/dL >=20 == Declared Medications: Medication list was not provided. == For clinical consultation, please call . == @FLOW([id number])@ Lab Results Component Value Date SUMM FINAL 04/20/2022 Summary Report (Summary) Date Value Ref Range Status 11/24/2021 FINAL Final Comment: == TOXASSURE COMP DRUG ANALYSIS,UR == Test Result Flag Units Drug Present Oxycodone 1251 ng/mg creat Oxymorphone 792 ng/mg creat Noroxycodone 3098 ng/mg creat Noroxymorphone 53 ng/mg creat Sources of oxycodone are scheduled prescription medications. Oxymorphone, noroxycodone, and noroxymorphone are expected metabolites of oxycodone. Oxymorphone is also available as a scheduled prescription medication. Duloxetine PRESENT Acetaminophen PRESENT == Test Result Flag Units Ref Range Creatinine 159 mg/dL >=20 == Declared Medications: Medication list was not provided. == For clinical consultation, please call . == Please review and advise. Sho Gates RN documented in this encounter [facility] 06-09-2022 Miscellaneous Notes Formattin g of this note is different from the original. The following approved medication requests have been transmitted electronically. Requested Prescriptions Pending Prescriptions Disp Refills DULoxetine (CYMBALTA) 30 mg capsule 30 capsule 0 Sig: Take 1 capsule by mouth once daily. In am DULoxetine (CYMBALTA) 60 mg capsule 30 capsule 0 Sig: Take 1 capsule by mouth daily at bedtime. Génesis Casanova DO Patient phones requesting refills as follows: Requested Prescriptions Pending Prescriptions Disp Refills DULoxetine (CYMBALTA) 30 mg capsule 30 capsule 0 Sig: Take 1 capsule by mouth once daily. In am DULoxetine (CYMBALTA) 60 mg capsule 30 capsule 0 Sig: Take 1 capsule by mouth daily at bedtime. Last UDS: Summary Report Date Value Ref Range Status 04/20/2022 FINAL Final Comment: == Opiate Class, MS, Ur RFX Oxycodone Class, MS, Ur RFX ToxAssure Flex 23, Ur == Test Result Flag Units Drug Present Oxycodone 3383 ng/mg creat Oxymorphone 1708 ng/mg creat Noroxycodone 4840 ng/mg creat Noroxymorphone 136 ng/mg creat Sources of oxycodone are scheduled prescription medications. Oxymorphone, noroxycodone, and noroxymorphone are expected metabolites of oxycodone. Oxymorphone is also available as a scheduled prescription medication. == Test Result Flag Units Ref Range Creatinine 159 mg/dL >=20 == Declared Medications: Medication list was not provided. == For clinical consultation, please call . == @FLOW([id number])@ Lab Results Component Value Date SUMM FINAL 04/20/2022 Summary Report (Summary) Date Value Ref Range Status 11/24/2021 FINAL Final Comment: == TOXASSURE COMP DRUG ANALYSIS,UR == Test Result Flag Units Drug Present Oxycodone 1251 ng/mg creat Oxymorphone 792 ng/mg creat Noroxycodone 3098 ng/mg creat Noroxymorphone 53 ng/mg creat Sources of oxycodone are scheduled prescription medications. Oxymorphone, noroxycodone, and noroxymorphone are expected metabolites of oxycodone. Oxymorphone is also available as a scheduled prescription medication. Duloxetine PRESENT Acetaminophen PRESENT == Test Result Flag Units Ref Range Creatinine 159 mg/dL >=20 == Declared Medications: Medication list was not provided. == For clinical consultation, please call . == Please review and advise. Sho Gates RN documented in this encounter [facility] 05-24-2022 Note HNO ID: [id number] Author: Génesis Casanova, DO Service: ? Author Type: Physician Type: Progress Notes Filed: 05/24/2022 3:51 PM Note Text: Summary: Pain Management follow-up DATE: May 24, 2022 Chief Complaint: Generalized body pain, right hand pain _ History of Present Illness: Michelle Self is a 61 year old female being seen at [facility] for a evaluation and/or management of their chronic pain. The patient was last seen in the office by Dr. Casanova on 04/19/2022 and the plan of care was as follows: Continue duloxetine Continue zanaflex Continue SCS use as needed. Continue oxycodone 15mg one tab tid prn. OARRS reviewed and consistent. Continue diet efforts No NSAIDs use. Start Lidocaine/prilocaine topical cream prn Followup in 2 to 3 months in office with Dr. Casanova. Please She gets 50% relief with the spinal cord stimulator. She is taking the medications as prescribed with no side effects. She also states that she has new right hand pain. She has no history of carpal tunnel syndrome. The patient denies any new diagnoses, hospital visits or ER visits. She is also complaining about urinary retention. She has not been diagnosed with urinary tract infections. This is most likely medication related. Pain level:8/10 Pain: generalized body pain Reports pain worse with any activity, cold weather Reports pain better with sleep, medications, SCS Describes pain in lower back as constant ache that becomes sharp at times. States less radiates to butt, hips and legs bilaterally Numbness/tingling: knees and feet Describes pain in knees as intermittent ache. Improved. States had steroid injection in right knee by ortho last month. Falls: Stumbling, has a drop foot. She denies any bowel dysfunction. She has urinary retention. She gets 5 hours of sleep at nights and feels unrested in the mornings. Last UDS: Consistent Summary Report Date Value Ref Range Status 04/20/2022 FINAL Final Comment: == Opiate Class, MS, Ur RFX Oxycodone Class, MS, Ur RFX ToxAssure Flex 23, Ur == Test Result Flag Units Drug Present Oxycodone 3383 ng/mg creat Oxymorphone 1708 ng/mg creat Noroxycodone 4840 ng/mg creat Noroxymorphone 136 ng/mg creat Sources of oxycodone are scheduled prescription medications. Oxymorphone, noroxycodone, and noroxymorphone are expected metabolites of oxycodone. Oxymorphone is also available as a scheduled prescription medication. == Test Result Flag Units Ref Range Creatinine 159 mg/dL >=20 == Declared Medications: Medication list was not provided. == For clinical consultation, please call . == Summary Report (Summary) Date Value Ref Range Status 11/24/2021 FINAL Final Comment: == TOXASSURE COMP DRUG ANALYSIS,UR == Test Result Flag Units Drug Present Oxycodone 1251 ng/mg creat Oxymorphone 792 ng/mg creat Noroxycodone 3098 ng/mg creat Noroxymorphone 53 ng/mg creat Sources of oxycodone are scheduled prescription medications. Oxymorphone, noroxycodone, and noroxymorphone are expected metabolites of oxycodone. Oxymorphone is also available as a scheduled prescription medication. Duloxetine PRESENT Acetaminophen PRESENT == Test Result Flag Units Ref Range Creatinine 159 mg/dL >=20 == Declared Medications: Medication list was not provided. == For clinical consultation, please call . == Chronic Pain Functional Assessment Tools Pain Disability Index: Pain Disability Index 11/24/2021 04/19/2022 Family/Home Responsibilities 9 5 Recreation 10 Total disability 5 Social Activity 9 5 Occupation 9 5 Sexual Behavior 10 Total Disability 5 Self Care 4 5 Life Support Activity 6 5 PDI Score 57 35 Pain Enjoyment of Life and General Activity Scale (0-10): PEG: A Three-Item Scale Assessing Pain Intensity and Interference What number best describes your anne-marie (more content not included)... [facility] 05-24-2022 History of Presen t illness Narrative Summary: Pain Management follow-up DATE: May 24, 2022 Chief Complaint: Generalized body pain, right hand pain _ History of Present Illness: Michelle Self is a 61 year old female being seen at [facility] for a evaluation and/or management of their chronic pain. The patient was last seen in the office by Dr. Casanova on 04/19/2022 and the plan of care was as follows: Continue duloxetine Continue zanaflex Continue SCS use as needed. Continue oxycodone 15mg one tab tid prn. OARRS reviewed and consistent. Continue diet efforts No NSAIDs use. Start Lidocaine/prilocaine topical cream prn Followup in 2 to 3 months in office with Dr. Casanova. Please She gets 50% relief with the spinal cord stimulator. She is taking the medications as prescribed with no side effects. She also states that she has new right hand pain. She has no history of carpal tunnel syndrome. The patient denies any new diagnoses, hospital visits or ER visits. She is also complaining about urinary retention. She has not been diagnosed with urinary tract infections. This is most likely medication related. Pain level:8/10 Pain: generalized body pain Reports pain worse with any activity, cold weather Reports pain better with sleep, medications, SCS Describes pain in lower back as constant ache that becomes sharp at times. States less radiates to butt, hips and legs bilaterally Numbness/tingling: knees and feet Describes pain in knees as intermittent ache. Improved. States had steroid injection in right knee by ortho last month. Falls: Stumbling, has a drop foot. She denies any bowel dysfunction. She has urinary retention. She gets 5 hours of sleep at nights and feels unrested in the mornings. Last UDS: Consistent Summary Report Date Value Ref Range Status 04/20/2022 FINAL Final Comment: == Opiate Class, MS, Ur RFX Oxycodone Class, MS, Ur RFX ToxAssure Flex 23, Ur == Test Result Flag Units Drug Present Oxycodone 3383 ng/mg creat Oxymorphone 1708 ng/mg creat Noroxycodone 4840 ng/mg creat Noroxymorphone 136 ng/mg creat Sources of oxycodone are scheduled prescription medications. Oxymorphone, noroxycodone, and noroxymorphone are expected metabolites of oxycodone. Oxymorphone is also available as a scheduled prescription medication. == Test Result Flag Units Ref Range Creatinine 159 mg/dL >=20 == Declared Medications: Medication list was not provided. == For clinical consultation, please call . == Summary Report (Summary) Date Value Ref Range Status 11/24/2021 FINAL Final Comment: == TOXASSURE COMP DRUG ANALYSIS,UR == Test Result Flag Units Drug Present Oxycodone 1251 ng/mg creat Oxymorphone 792 ng/mg creat Noroxycodone 3098 ng/mg creat Noroxymorphone 53 ng/mg creat Sources of oxycodone are scheduled prescription medications. Oxymorphone, noroxycodone, and noroxymorphone are expected metabolites of oxycodone. Oxymorphone is also available as a scheduled prescription medication. Duloxetine PRESENT Acetaminophen PRESENT == Test Result Flag Units Ref Range Creatinine 159 mg/dL >=20 == Declared Medications: Medication list was not provided. == For clinical consultation, please call . == Chronic Pain Functional Assessment Tools Pain Disability Index: Pain Disability Index 11/24/2021 04/19/2022 Family/Home Responsibilities 9 5 Recreation 10 Total disability 5 Social Activity 9 5 Occupation 9 5 Sexual Behavior 10 Total Disability 5 Self Care 4 5 Life Support Activity 6 5 PDI Score 57 35 Pain Enjoyment of Life and General Activity Scale (0-10): PEG: A Three-Item Scale Assessing Pain Intensity and Interference What number best describes your pain on average in the past week?: 7 (05/24/2022 2:00 PM) What number best describes how, during the past week, pain has interfered with your enjoyment of life?: 8 (05/24/2022 2:00 PM) What number best describes how, during the past week, pain has interfered with your general activity?: 8 (05/24/2022 2:00 PM) REVIEW OF SYSTEMS: GENERAL: No weight loss, malaise or fevers RESPIRATORY: Negative for cough, hemoptysis, wheezing, COPD, dyspnea or shortness of breath. CARDIOVASCULAR: Negative for chest pain, leg swelling, hypertension, CHF or palpitations GI: No nausea, vomiting, or diarrhea. MUSCULOSKELETAL: Negative for joint pain or swelling, back pain or muscle pain. Generalized body pain, right hand pain ____ PAST MEDICAL HISTORY Diagnosis Date Constipation Depression Fibromyalgia Foot drop right Graves disease graves disease HTN (hypertension) Hypothyroid LBP (low back pain) DDD lumbar spine, arthropathy of lumbar facet joint Mitral valve prolapse Obesities, morbid (HCC) Other malaise and fatigue RLS (restless legs syndrome) PAST SURGICAL HISTORY Procedure Laterality Date DELIVERY ONLY , low cervical x2 LIG/TRNSXJ FLP TUBE ABDL/VAG APPR UNI/BI Tubal ligation PAST SURGICAL HISTORY OF thymus- enlarged PAST SURGICAL HISTORY OF eye, left FAMILY HISTORY Problem Relation Age of Onset Diabetes Paternal Grandfather Social History Tobacco Use Smoking status: Former Types: Cigarettes Quit date: 09/23/1999 Years since quittin.6 Smokeless tobacco: Former Quit date: 04/10/1999 Substance Use Topics Alcohol use: No Drug use: No Work Status: n/a Allergies: Adhesive Tape-Silic* Rash, Unknown Erythromycin Rash, Unknown Chloroxylenol Other: See Comments Comment:Per patient no recent allergy r/t soap (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 Do not start before May 14, 2022. DULoxetine (CYMBALTA) 30 mg capsule Take 1 capsule by mouth once daily. In am hydrOXYchloroQUINE (PLAQUENIL) 200 mg tablet montelukast (SINGULAIR) 10 mg tablet Take 10 mg by mouth daily at bedtime. oxyCODONE-acetaminophen (PERCOCET 10) 10-325 mg tablet Take by mouth. predniSONE (DELTASONE) 10 mg tablet Take 10 mg by mouth. leflunomide (ARAVA) 10 mg tablet Take 15 mg by mouth once daily. levothyroxine (SYNTHROID) 25 mcg tablet Take 25 mcg by mouth once daily. loratadine (CLARITIN) 10 mg tablet Take by mouth. doxycycline monohydrate 100 mg tablet lidocaine-prilocaine (EMLA) 2.5-2.5 % cream Apply to affected area as needed. amLODIPine (NORVASC) 2.5 mg tablet OZEMPIC 1 mg/dose (4 mg/3 mL) pen injector No current facility-administered medications for this visit. PHYSICAL EXAMINATION: Vitals: There were no vitals taken for this visit. GENERAL: General appearance: Well appearing, in no acute distress, alert. Patient is morbidly obese. She has an antalgic gait. She does not use a cane or walker for ambulation. Psych: Mood and affect appropriate. Skin: Skin color, texture, turgor normal, no rashes or lesion. Pulm: no conversational shortness of breath GI: Abdomen soft and non-tender. Musculoskeletal: Deferred toe and heel raise. Right foot drop appreciated. Lumbar range of motion with mild restriction throughout. Negative straight leg raise from sitting position bilaterally. Negative Fabere sign bilaterally. Negative right knee pain with palpation over knee cap. Negative pain with valgus/varus stress. Negative shelf test. Muscle strength 5/5 bilateral muscle strength. Right hand pain: positive Tinel's and Phalen's test ASSESSMENT: Chronic pain syndrome (primary encounter diagnosis) Displacement of lumbar intervertebral disc without myelopathy Other spondylosis, lumbosacral region Osteoarthritis of both knees, unspecified osteoarthritis type Lumbar radiculopathy High risk medication use Encounter for long-term (current) use of high-risk medication Generalized osteoarthrosis, involving multiple sites Inflammatory spondylopathy of lumbar region (hcc) Myofascial pain syndrome Right carpal tunnel syndrome [g56.01 (icd-10-cm)] Patient is stable. Chronic pain is persistent. Medications are helping Michelle Self to have an improved quality of life. Patient compliance with Opioid Contract: patient is compliant PDMP website checked and validated. OARRS report reviewed on May 24, 2022 by Divine Wright and is consistent with the patients medical history and medication intake. PLAN: The patient understands the goal of our treatment is a reduction in pain and/or an improved level of functioning with activities of daily living. If at any time the patient does not feel the medications are helping them to achieve these goals, the medications may be discontinued. The patient reports a reduction in pain and/or an improved level of functioning with activities of daily living, denies any significant adverse effects, is compliant with the pain management agreement and there are no signs of medication misuse, abuse or diversion; therefore, the medications will be continued. The documentation for this encounter was entered by Divine Wright, medical services coordinator, for Dr. Génesis Casanova on May 24, 2022. I, Dr. Génesis Casanova, personally performed the services described in this documentation. All medical record entries made by the scribe were at my direction and in my presence. I have reviewed the chart and discharge instructions and agree that the record reflects my personal performance and is accurate and complete. Electronically Signed: Dr. Casanova. May 24, 2022 documented in this encounter [facility] 05-24-2022 Instructions Génesis Casanova DO - 05/24/2022 2:55 PM EDT Continue duloxetine Continue zanaflex Continue SCS use as needed. Continue oxycodone 15mg one tab tid prn. OARRS reviewed and consistent. Continue diet efforts No NSAIDs use. Start Lidocaine/prilocaine topical cream prn Wear right wrist splint for carpal tunnel symptoms Followup in 3 months in office with Dr. Casanova. documented in this encounter [facility] 05-12-2022 Miscellaneous Notes Formattin g of this note is different from the original. The following approved medication requests have been transmitted electronically. Requested Prescriptions Pending Prescriptions Disp Refills oxyCODONE (ROXICODONE) 15 mg immediate release tablet 90 tablet 0 Sig: Take 1 tablet by mouth three times daily as needed for pain for up to 30 days. Do not start before May 14, 2022. DULoxetine (CYMBALTA) 30 mg capsule 30 capsule 0 Sig: Take 1 capsule by mouth once daily. In am Gnéesis Casanova DO Patient phones requesting refills as follows: Requested Prescriptions Pending Prescriptions Disp Refills oxyCODONE (ROXICODONE) 15 mg immediate release tablet 90 tablet 0 Sig: Take 1 tablet by mouth three times daily as needed for pain for up to 30 days. DULoxetine (CYMBALTA) 30 mg capsule 30 capsule 0 Sig: Take 1 capsule by mouth once daily. In am Last UDS: Summary Report Date Value Ref Range Status 04/20/2022 FINAL Final Comment: == Opiate Class, MS, Ur RFX Oxycodone Class, MS, Ur RFX ToxAssure Flex 23, Ur == Test Result Flag Units Drug Present Oxycodone 3383 ng/mg creat Oxymorphone 1708 ng/mg creat Noroxycodone 4840 ng/mg creat Noroxymorphone 136 ng/mg creat Sources of oxycodone are scheduled prescription medications. Oxymorphone, noroxycodone, and noroxymorphone are expected metabolites of oxycodone. Oxymorphone is also available as a scheduled prescription medication. == Test Result Flag Units Ref Range Creatinine 159 mg/dL >=20 == Declared Medications: Medication list was not provided. == For clinical consultation, please call . == @FLOW([id number])@ Lab Results Component Value Date SUMM FINAL 04/20/2022 Summary Report (Summary) Date Value Ref Range Status 11/24/2021 FINAL Final Comment: == TOXASSURE COMP DRUG ANALYSIS,UR == Test Result Flag Units Drug Present Oxycodone 1251 ng/mg creat Oxymorphone 792 ng/mg creat Noroxycodone 3098 ng/mg creat Noroxymorphone 53 ng/mg creat Sources of oxycodone are scheduled prescription medications. Oxymorphone, noroxycodone, and noroxymorphone are expected metabolites of oxycodone. Oxymorphone is also available as a scheduled prescription medication. Duloxetine PRESENT Acetaminophen PRESENT == Test Result Flag Units Ref Range Creatinine 159 mg/dL >=20 == Declared Medications: Medication list was not provided. == For clinical consultation, please call . == Please review and advise. Carline Cabrera RN documented in this encounter [facility] 04-19-2022 Note HNO ID: [id number] Author: Génesis Casanova, DO Service: ? Author Type: Physician Type: Progress Notes Filed: 04/21/2022 11:01 AM Note Text: Summary: Pain Management follow-up DATE: April 19, 2022 Chief Complaint: Generalized body pains _ History of Present Illness: Michelle Self is a 61 year old female being seen at [facility] for a evaluation and/or management of their chronic pain. Patient was last seen in the office on 02/18/2022 and the plan of care was as follows. Continue duloxetine Continue zanaflex Continue SCS use DC percocet. Prescribe oxycodone 15mg one tab tid prn. OARRS reviewed and consistent UDS reviewed and consistent Sign Pain contract Continue diet efforts Followup in 2 months coordinated with spouse seeing provider at same time Today the patient states overall she is doing well. She does not notice any difference with the increased dose of oxycodone which was increased on 02/18/2022. The patient denies any new diagnoses, hospital visits or ER visits. She had SCS on 02/04/2022 and she has 50% relief coverage of her back and leg pain. The patient also had a ganglion cyst behind her right knee and follows with Orthopedics. She recently had a cortisone injection which only gave her 50% relief for 2 weeks. She is describing whole body pain on today's visit related to fibromyalgia, increased stress at home and weather changes. She continues to have right foot drop. She is not able to wear a right foot drop brace. Pain level:7/10 Pain: generalized body pain Reports pain worse with any activity, cold weather Reports pain better with sleep, medications, SCS Describes pain in lower back as constant ache that becomes sharp at times States pain radiates to butt, hips and legs bilaterally Numbness/tingling: knees and feet Describes pain in knees as intermittent ache States had steroid injection in right knee by ortho last month Falls: Stumbling, has a drop foot. Last UDS: consistent No results found for: SUMM Summary Report (Summary) Date Value Ref Range Status 11/24/2021 FINAL Final Comment: == TOXASSURE COMP DRUG ANALYSIS,UR == Test Result Flag Units Drug Present Oxycodone 1251 ng/mg creat Oxymorphone 792 ng/mg creat Noroxycodone 3098 ng/mg creat Noroxymorphone 53 ng/mg creat Sources of oxycodone are scheduled prescription medications. Oxymorphone, noroxycodone, and noroxymorphone are expected metabolites of oxycodone. Oxymorphone is also available as a scheduled prescription medication. Duloxetine PRESENT Acetaminophen PRESENT == Test Result Flag Units Ref Range Creatinine 159 mg/dL >=20 == Declared Medications: Medication list was not provided. == For clinical consultation, please call . == Chronic Pain Functional Assessment Tools Pain Disability Index: Pain Disability Index 11/24/2021 04/19/2022 Family/Home Responsibilities 9 5 Recreation 10 Total disability 5 Social Activity 9 5 Occupation 9 5 Sexual Behavior 10 Total Disability 5 Self Care 4 5 Life Support Activity 6 5 PDI Score 57 35 Pain Enjoyment of Life and General Activity Scale (0-10): PEG: A Three-Item Scale Assessing Pain Intensity and Interference What number best describes your pain on average in the past week?: 5 (04/19/2022 3:00 PM) What number best describes how, during the past week, pain has interfered with your enjoyment of life?: 5 (04/19/2022 3:00 PM) What number best describes how, during the past week, pain has interfered with your general activity?: 5 (04/19/2022 3:00 PM) REVIEW OF SYSTEMS: GENERAL: No weight loss, malaise or fevers RESPIRATORY: Negative for cough, hemoptysis, wheezing, COPD, dyspnea or shortness of breath. CARDIOVASCULAR: Negative for chest pain, leg swelling, hypertension, CHF or palpitations GI: No nausea, vomiting, or diarrhea. MUSCULOSKELETAL: Negative for joint pain or swelling, back pain or muscle pain. Generalized body pains. ____ PAST MEDICAL HISTORY Diagnosis Date Constipation Depression Fibromyalgia Foot drop right Graves disease graves disease HTN (hypertension) Hypothyroid LBP (low back pain) DDD lumbar spine, arthropathy of lumbar fac (more content not included)... [facility] 04-19-2022 Instructions Génesis Casanova DO - 04/19/2022 3:56 PM EST Continue duloxetine Continue zanaflex Continue SCS use as needed. Continue oxycodone 15mg one tab tid prn. OARRS reviewed and consistent. Continue diet efforts No NSAIDs use. Start Lidocaine/prilocaine topical cream prn Followup in 2 to 3 months in office with Dr. Casanova. Please coordinate appointment with . documented in this encounter [facility] 04-19-2022 History of Presen t illness Narrative Summary: Pain Management follow-up DATE: April 19, 2022 Chief Complaint: Generalized body pains _ History of Present Illness: Michelle Self is a 61 year old female being seen at [facility] for a evaluation and/or management of their chronic pain. Patient was last seen in the office on 02/18/2022 and the plan of care was as follows. Continue duloxetine Continue zanaflex Continue SCS use DC percocet. Prescribe oxycodone 15mg one tab tid prn. OARRS reviewed and consistent UDS reviewed and consistent Sign Pain contract Continue diet efforts Followup in 2 months coordinated with spouse seeing provider at same time Today the patient states overall she is doing well. She does not notice any difference with the increased dose of oxycodone which was increased on 02/18/2022. The patient denies any new diagnoses, hospital visits or ER visits. She had SCS on 02/04/2022 and she has 50% relief coverage of her back and leg pain. The patient also had a ganglion cyst behind her right knee and follows with Orthopedics. She recently had a cortisone injection which only gave her 50% relief for 2 weeks. She is describing whole body pain on today's visit related to fibromyalgia, increased stress at home and weather changes. She continues to have right foot drop. She is not able to wear a right foot drop brace. Pain level:7/10 Pain: generalized body pain Reports pain worse with any activity, cold weather Reports pain better with sleep, medications, SCS Describes pain in lower back as constant ache that becomes sharp at times States pain radiates to butt, hips and legs bilaterally Numbness/tingling: knees and feet Describes pain in knees as intermittent ache States had steroid injection in right knee by ortho last month Falls: Stumbling, has a drop foot. Last UDS: consistent No results found for: SUMM Summary Report (Summary) Date Value Ref Range Status 11/24/2021 FINAL Final Comment: == TOXASSURE COMP DRUG ANALYSIS,UR == Test Result Flag Units Drug Present Oxycodone 1251 ng/mg creat Oxymorphone 792 ng/mg creat Noroxycodone 3098 ng/mg creat Noroxymorphone 53 ng/mg creat Sources of oxycodone are scheduled prescription medications. Oxymorphone, noroxycodone, and noroxymorphone are expected metabolites of oxycodone. Oxymorphone is also available as a scheduled prescription medication. Duloxetine PRESENT Acetaminophen PRESENT == Test Result Flag Units Ref Range Creatinine 159 mg/dL >=20 == Declared Medications: Medication list was not provided. == For clinical consultation, please call . == Chronic Pain Functional Assessment Tools Pain Disability Index: Pain Disability Index 11/24/2021 04/19/2022 Family/Home Responsibilities 9 5 Recreation 10 Total disability 5 Social Activity 9 5 Occupation 9 5 Sexual Behavior 10 Total Disability 5 Self Care 4 5 Life Support Activity 6 5 PDI Score 57 35 Pain Enjoyment of Life and General Activity Scale (0-10): PEG: A Three-Item Scale Assessing Pain Intensity and Interference What number best describes your pain on average in the past week?: 5 (04/19/2022 3:00 PM) What number best describes how, during the past week, pain has interfered with your enjoyment of life?: 5 (04/19/2022 3:00 PM) What number best describes how, during the past week, pain has interfered with your general activity?: 5 (04/19/2022 3:00 PM) REVIEW OF SYSTEMS: GENERAL: No weight loss, malaise or fevers RESPIRATORY: Negative for cough, hemoptysis, wheezing, COPD, dyspnea or shortness of breath. CARDIOVASCULAR: Negative for chest pain, leg swelling, hypertension, CHF or palpitations GI: No nausea, vomiting, or diarrhea. MUSCULOSKELETAL: Negative for joint pain or swelling, back pain or muscle pain. Generalized body pains. ____ PAST MEDICAL HISTORY Diagnosis Date Constipation Depression Fibromyalgia Foot drop right Graves disease graves disease HTN (hypertension) Hypothyroid LBP (low back pain) DDD lumbar spine, arthropathy of lumbar facet joint Mitral valve prolapse Obesities, morbid (HCC) Other malaise and fatigue RLS (restless legs syndrome) PAST SURGICAL HISTORY Procedure Laterality Date DELIVERY ONLY , low cervical x2 LIG/TRNSXJ FLP TUBE ABDL/VAG APPR UNI/BI Tubal ligation PAST SURGICAL HISTORY OF thymus- enlarged PAST SURGICAL HISTORY OF eye, left FAMILY HISTORY Problem Relation Age of Onset Diabetes Paternal Grandfather Social History Tobacco Use Smoking status: Former Types: Cigarettes Quit date: 09/23/1999 Years since quittin.5 Smokeless tobacco: Former Quit date: 04/10/1999 Substance Use Topics Alcohol use: No Drug use: No Work Status: n/a Allergies: Adhesive Tape-Silic* Rash, Unknown Erythromycin Rash, Unknown Chloroxylenol Other: See Comments Comment:Per patient no recent allergy r/t soap (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 oxyCODONE-acetaminophen (PERCOCET 10) 10-325 mg tablet Take by mouth. predniSONE (DELTASONE) 10 mg tablet Take 10 mg by mouth. leflunomide (ARAVA) 10 mg tablet Take 15 mg by mouth once daily. levothyroxine (SYNTHROID) 25 mcg tablet Take 25 mcg by mouth once daily. loratadine (CLARITIN) 10 mg tablet Take by mouth. doxycycline monohydrate 100 mg tablet oxyCODONE (ROXICODONE) 15 mg immediate release tablet Take 1 tablet by mouth three times daily as needed for pain for up to 30 days. Do not start before April 14, 2022. DULoxetine (CYMBALTA) 30 mg capsule Take 1 capsule by mouth once daily. In am amLODIPine (NORVASC) 2.5 mg tablet OZEMPIC 1 mg/dose (4 mg/3 mL) pen injector No current facility-administered medications for this visit. PHYSICAL EXAMINATION: Vitals: BP 152/75 Pulse 68 Resp 19 Ht 5' 4.8 (1.65m) Wt 350 lb (158.8kg) SpO2 97% BMI 58.60 kg/(m^2). GENERAL: General appearance: Well appearing, in no acute distress, alert. Patient is morbidly obese. She has an antalgic gait. She does not use a cane or walker for ambulation. Psych: Mood and affect appropriate. Skin: Skin color, texture, turgor normal, no rashes or lesion. Pulm: no conversational shortness of breath GI: Abdomen soft and non-tender. Musculoskeletal: Deferred toe and heel raise. Right foot drop appreciated. Lumbar range of motion with mild restriction throughout. Negative straight leg raise from sitting position bilaterally. Negative Fabere sign bilaterally. Negative right knee pain with palpation over knee cap. Negative pain with valgus/varus stress. Negative shelf test. Muscle strength 5/5 bilateral muscle strength. ASSESSMENT: Chronic pain syndrome (primary encounter diagnosis) Displacement of lumbar intervertebral disc without myelopathy Other spondylosis, lumbosacral region Osteoarthritis of both knees, unspecified osteoarthritis type Lumbar radiculopathy High risk medication use Encounter for long-term (current) use of high-risk medication Generalized osteoarthrosis, involving multiple sites Inflammatory spondylopathy of lumbar region (hcc) Patient is stable. Chronic pain is persistent. Medications are helping Michelle Self to have an improved quality of life. Patient compliance with Opioid Contract: patient is compliant PDMP website checked and validated. OARRS report reviewed on April 19, 2022 by Divine Wright and is consistent with the patients medical history and medication intake. PLAN: The patient understands the goal of our treatment is a reduction in pain and/or an improved level of functioning with activities of daily living. If at any time the patient does not feel the medications are helping them to achieve these goals, the medications may be discontinued. The patient reports a reduction in pain and/or an improved level of functioning with activities of daily living, denies any significant adverse effects, is compliant with the pain management agreement and there are no signs of medication misuse, abuse or diversion; therefore, the medications will be continued. The documentation for this encounter was entered by Divine Wright, medical services coordinator, for Dr. Génesis Casanova on April 19, 2022. I, Dr. Génesis Casanova, personally performed the services described in this documentation. All medical record entries made by the scribe were at my direction and in my presence. I have reviewed the chart and discharge instructions and agree that the record reflects my personal performance and is accurate and complete. Electronically Signed: Dr. Casanova. April 19, 2022. documented in this encounter [facility] 04-09-2022 Miscellaneous Notes Formattin g of this note is different from the original. The following approved medication requests have been transmitted electronically. Requested Prescriptions Signed Prescriptions Disp Refills oxyCODONE (ROXICODONE) 15 mg immediate release tablet 90 tablet 0 Sig: Take 1 tablet by mouth three times daily as needed for pain for up to 30 days. Do not start before April 14, 2022. Authorizing Provider: SUSY ALONSO DULoxetine (CYMBALTA) 60 mg capsule 30 capsule 0 Sig: Take 1 capsule by mouth once daily. At hs Authorizing Provider: SUSY ALONSO DULoxetine (CYMBALTA) 30 mg capsule 30 capsule 0 Sig: Take 1 capsule by mouth once daily. In am Authorizing Provider: SUSY ALONSO APRN.UROLOGY TEACHER Patient phones requesting refills as follows: Requested Prescriptions Pending Prescriptions Disp Refills oxyCODONE (ROXICODONE) 15 mg immediate release tablet 90 tablet 0 Sig: Take 1 tablet by mouth three times daily as needed for pain for up to 30 days. DULoxetine (CYMBALTA) 60 mg capsule 30 capsule 0 Sig: Take 1 capsule by mouth once daily. At hs DULoxetine (CYMBALTA) 30 mg capsule 30 capsule 0 Sig: Take 1 capsule by mouth once daily. In am Last UDS: No results found for: SUMM @FLOW([id number])@ No results found for: SUMM Summary Report (Summary) Date Value Ref Range Status 11/24/2021 FINAL Final Comment: == TOXASSURE COMP DRUG ANALYSIS,UR == Test Result Flag Units Drug Present Oxycodone 1251 ng/mg creat Oxymorphone 792 ng/mg creat Noroxycodone 3098 ng/mg creat Noroxymorphone 53 ng/mg creat Sources of oxycodone are scheduled prescription medications. Oxymorphone, noroxycodone, and noroxymorphone are expected metabolites of oxycodone. Oxymorphone is also available as a scheduled prescription medication. Duloxetine PRESENT Acetaminophen PRESENT == Test Result Flag Units Ref Range Creatinine 159 mg/dL >=20 == Declared Medications: Medication list was not provided. == For clinical consultation, please call . == Please review and advise. Sho Gates RN documented in this encounter [facility] 03-10-2022 Miscellaneous Notes Formattin g of this note is different from the original. The following approved medication requests have been transmitted electronically. Requested Prescriptions Signed Prescriptions Disp Refills oxyCODONE (ROXICODONE) 15 mg immediate release tablet 90 tablet 0 Sig: Take 1 tablet by mouth three times daily as needed for pain for up to 30 days. Do not start before March 12, 2022. Authorizing Provider: SUSY ALONSO DULoxetine (CYMBALTA) 30 mg capsule 30 capsule 0 Sig: Take 1 capsule by mouth once daily. In am Authorizing Provider: SUSY ALONSO DULoxetine (CYMBALTA) 60 mg capsule 30 capsule 0 Sig: Take 1 capsule by mouth once daily. At hs Authorizing Provider: SUSY ALONSO APRN.UROLOGY TEACHER Patient phones requesting refills as follows: Requested Prescriptions Pending Prescriptions Disp Refills oxyCODONE (ROXICODONE) 15 mg immediate release tablet 90 tablet 0 Sig: Take 1 tablet by mouth three times daily as needed for pain for up to 30 days. Do not start before March 12, 2022. DULoxetine (CYMBALTA) 30 mg capsule 30 capsule 0 Sig: Take 1 capsule by mouth once daily. In am DULoxetine (CYMBALTA) 60 mg capsule 30 capsule 0 Sig: Take 1 capsule by mouth once daily. At hs Last UDS: No results found for: SUMM @FLOW([id number])@ No results found for: SUMM Summary Report (Summary) Date Value Ref Range Status 11/24/2021 FINAL Final Comment: == TOXASSURE COMP DRUG ANALYSIS,UR == Test Result Flag Units Drug Present Oxycodone 1251 ng/mg creat Oxymorphone 792 ng/mg creat Noroxycodone 3098 ng/mg creat Noroxymorphone 53 ng/mg creat Sources of oxycodone are scheduled prescription medications. Oxymorphone, noroxycodone, and noroxymorphone are expected metabolites of oxycodone. Oxymorphone is also available as a scheduled prescription medication. Duloxetine PRESENT Acetaminophen PRESENT == Test Result Flag Units Ref Range Creatinine 159 mg/dL >=20 == Declared Medications: Medication list was not provided. == For clinical consultation, please call . == Please review and advise. Becca Dudley RN documented in this encounter [facility] 02-18-2022 Instructions Susy Alonso APRN.UROLOGY TEACHER - 02/18/2022 3:36 PM EST Continue duloxetine Continue zanaflex Continue SCS use DC percocet. Prescribe oxycodone 15mg one tab tid prn. OARRS reviewed and consistent UDS reviewed and consistent Sign Pain contract Continue diet efforts Followup in 2 months coordinated with spouse seeing provider at same time documented in this encounter [facility] 02-18-2022 History of Presen t illness Narrative SUBJECTIVE: Michelle Self presents to [facility] for a follow-up appointment for back and bilateral knee pain Last seen by Dr Casanova on 11/24/21 Pain level:7-8/10 Denies ED visits or hospitalizations since last office visit Reports pain worse with any activity, cold weather Reports pain better with sleep, medications, SCS Describes pain in lower back as constant ache that becomes sharp at times States pain radiates to butt, hips and legs bilaterally Denies numbness/tingling Describes pain in knees as intermittent ache States had steroid injection in right knee by ortho last month States falls frequently due to drop foot REVIEW OF SYSTEMS: GENERAL: No weight loss, malaise or fevers. HEENT: Negative for frequent or significant headaches. RESPIRATORY: Negative for cough, wheezing or shortness of breath. CARDIOVASCULAR: Negative for chest pain, positive leg swelling denies palpitations. GI: Negative for abdominal discomfort, blood in stools or black stools or change in bowel habits.States has BM 2-3 days : denies issues Past Medical History: PAST MEDICAL HISTORY Diagnosis Date Constipation Depression Fibromyalgia Foot drop right Graves disease graves disease HTN (hypertension) Hypothyroid LBP (low back pain) DDD lumbar spine, arthropathy of lumbar facet joint Mitral valve prolapse Obesities, morbid (HCC) Other malaise and fatigue RLS (restless legs syndrome) Past Surgical History: PAST SURGICAL HISTORY Procedure Laterality Date DELIVERY ONLY , low cervical x2 LIG/TRNSXJ FLP TUBE ABDL/VAG APPR UNI/BI Tubal ligation PAST SURGICAL HISTORY OF thymus- enlarged PAST SURGICAL HISTORY OF eye, left Family History: FAMILY HISTORY Problem Relation Age of Onset Diabetes Paternal Grandfather Social History: Social History Tobacco Use Smoking status: Former Types: Cigarettes Quit date: 09/23/1999 Years since quittin.4 Smokeless tobacco: Former Quit date: 04/10/1999 Substance Use Topics Alcohol use: No Drug use: No OBJECTIVE: There were no vitals taken for this visit. PHYSICAL EXAMINATION: General appearance: Well appearing, in no acute distress, alert. Psych: Mood and affect appropriate. Skin: Skin color, texture, turgor normal, no rashes or lesion. Pulm: no conversational shortness of breath GI: Abdomen soft and non-tender. Musculoskeletal: Deferred toe and heel raise. Right foot drop appreciated. Lumbar range of motion with mild restriction throughout. Negative straight leg raise from sitting position bilaterally. Negative Fabere sign bilaterally. Negative right knee pain with palpation over knee cap. Negative valgus/varus. Negative shelf test. Muscle strength 5/5 bilateral muscle strength ASSESSMENT: Displacement of lumbar intervertebral disc without myelopathy (primary encounter diagnosis) Other spondylosis, lumbosacral region Osteoarthritis of both knees, unspecified osteoarthritis type Lumbar radiculopathy Chronic pain syndrome High risk medication use PLAN: Continue duloxetine Continue zanaflex Continue SCS use DC percocet. Prescribe oxycodone 15mg one tab tid prn. OARRS reviewed and consistent UDS reviewed and consistent Sign Pain contract Continue diet efforts Followup in 2 months coordinated with spouse seeing provider at same time The above plan and management options were discussed at length with the patient. The patient is in agreement with the above and verbalized understanding. Susy Alonso APRN.CNS February 18, 2022 documented in this encounter [facility] 01-26-2022 Miscellaneous Notes Formattin g of this note is different from the original. The following approved medication requests have been transmitted electronically. Requested Prescriptions Pending Prescriptions Disp Refills oxyCODONE-acetaminophen (PERCOCET 10) 10-325 mg tablet 90 tablet 0 Sig: Take 1 tablet by mouth every 8 hours as needed for pain for up to 30 days. Do not start before February 06, 2022. DULoxetine (CYMBALTA) 30 mg capsule 30 capsule 0 Sig: Take 1 capsule by mouth once daily. In am DULoxetine (CYMBALTA) 60 mg capsule 30 capsule 0 Sig: Take 1 capsule by mouth once daily. At Génesis Casanova DO Pt requesting refill as follows Requested Prescriptions Pending Prescriptions Disp Refills oxyCODONE-acetaminophen (PERCOCET 10) 10-325 mg tablet 90 tablet 0 Sig: Take 1 tablet by mouth every 8 hours as needed for pain for up to 30 days. DULoxetine (CYMBALTA) 30 mg capsule 30 capsule 0 Sig: Take 1 capsule by mouth once daily. In am DULoxetine (CYMBALTA) 60 mg capsule 30 capsule 0 Sig: Take 1 capsule by mouth once daily. At hs Please review and advise. Carline Cabrera RN documented in this encounter [facility] 11-30-2021 Miscellaneous Notes Formattin g of this note is different from the original. Patient phones requesting refills as follows: Requested Prescriptions Pending Prescriptions Disp Refills DULoxetine (CYMBALTA) 60 mg capsule 30 capsule 0 Sig: Take 1 capsule by mouth once daily. At hs DULoxetine (CYMBALTA) 30 mg capsule 30 capsule 0 Sig: Take 1 capsule by mouth once daily. In am Please review and advise. Courtney Oh RN documented in this encounter [facility] 11-24-2021 Instructions Génesis Casanova DO - 11/24/2021 11:41 AM EDT Continue Cymbalta (90mg total) for fibromyalgia Continue Percocet (mmeq=60.00) Continue dietary modification and weight loss efforts Continue SCStim therapy with [employer] Continue treatment with Dr. Wyman, test automation architect Continue Zanaflex 4 mg three times daily as needed PA and schedule bilateral synvisc injections as needed 8. Obtain UDS 9. Referral to Dr. Nguyen, bariatric surgery 10. Follow up with PCP regarding ultrasound findings of the cyst on her right leg 11. Follow up in 2-3 months with SQL PROGRAMMER ANALYST in office documented in this encounter [facility] 11-24-2021 History of Presen t illness Narrative Summary: Pain Management Follow Up DATE: November 24, 2021 Chief Complaint: back and bilateral knee pain _ History of Present Illness: Michelle Self is a 61 year old female being seen at [facility] for a evaluation and/or management of their chronic pain. She was last seen on 08/28/21 and the plan of care was as follows: Continue Cymbalta(90mg total) for fibromyalgia. Continue Percocet (mmeq=60.00) Continue dietary modification and weight loss efforts. Continue SCStim therapy with [employer]. Continue tx with Dr. Wyman test automation architect. Continue Zanaflex 4 mg TID PRN. PA and schedule ramon synvisc inj.PRN F/U in 1 month She reports great difficulty with the virtual visits, to the point it causes her great stress and tears. No major changes since her last visit. She is happy with her current medication routine. She reports 40-60% improvement with the spinal cord stimulator, it extends from her back down to the bilateral knees. She does report some right leg pain and went to her PCP. They performed an ultrasound and found a cyst on the right leg and that is likely the route of her pain, no blood clots were found. She states it is a intense cramping like someone is hitting it with a baseball bat . Her test automation architect is recommending her for gastric bypass surgery. VAS: 7/10 Pain Location: back and ramon knee pain Timing:constant Character/Quality:dull Radiation:denies Numbness:denies Burning:denies Tingling:denies Weakness:ramon legs Falls:denies Alleviating Factors:inactiviy Aggravating Factors:movement The patient denies any bowel or bladder dysfunction. Since the last office visit the patients medical history has not changed. The patient denies any new diagnoses, hospital visits or ER visits. The patient is currently prescribed Percocet, Zanaflex and cymbalta from our office. . The medications are partially effective. The patient denies nausea, vomiting, rashes, drowsiness,weight gain, weight loss,dizziness,and fatigue. She uses a probiotic for consitpaion. The OARRS report has been reviewed and is consistent with the patients medical history and medication intake. this is not reflected on the OARRS Report. Last Urine Drug Screen (UDS): 05/07/2021. The UDS has been reviewed and is consistent with medications prescribed. REVIEW OF SYSTEMS: GENERAL: No weight loss, malaise or fevers RESPIRATORY: Negative for cough, hemoptysis, wheezing, COPD, dyspnea or shortness of breath. CARDIOVASCULAR: Negative for chest pain, leg swelling, hypertension, CHF or palpitations GI: No nausea, vomiting, or diarrhea. MUSCULOSKELETAL: positive back and bilateral knee pain ____ PAST MEDICAL HISTORY Diagnosis Date Constipation Depression Fibromyalgia Foot drop right Graves disease graves disease HTN (hypertension) Hypothyroid LBP (low back pain) DDD lumbar spine, arthropathy of lumbar facet joint Mitral valve prolapse Obesities, morbid (HCC) Other malaise and fatigue RLS (restless legs syndrome) PAST SURGICAL HISTORY Procedure Laterality Date DELIVERY ONLY , low cervical x2 LIG/TRNSXJ FLP TUBE ABDL/VAG APPR UNI/BI Tubal ligation PAST SURGICAL HISTORY OF thymus- enlarged PAST SURGICAL HISTORY OF eye, left FAMILY HISTORY Problem Relation Age of Onset Diabetes Paternal Grandfather Social History Tobacco Use Smoking status: Former Types: Cigarettes Quit date: 09/23/1999 Years since quittin.1 Smokeless tobacco: Former Quit date: 04/10/1999 Substance Use Topics Alcohol use: No Drug use: No Allergies: Adhesive Tape-Silic* Rash, Unknown Erythromycin Rash, Unknown Chloroxylenol Other: See Comments Comment:Per patient no recent allergy r/t soap (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 DULoxetine (CYMBALTA) 60 mg capsule Take 30 mg by mouth. DULoxetine (CYMBALTA) 30 mg capsule Take 1 capsule by mouth once daily. In am DULoxetine (CYMBALTA) 60 mg capsule Take 1 capsule by mouth daily at bedtime. oxyCODONE-acetaminophen (PERCOCET 10) 10-325 mg tablet Take 1 tablet by mouth every 8 hours as needed for pain for up to 30 days. Do not start before October 30, 2021. leflunomide (ARAVA) 10 mg tablet 5 mg. Blood-Glucose Meter Blood-Glucose Meter (Freestyle Lite Meter) kit Active 0 .ROUTE .MEDSUPPLY May 30, 2019 11:32am As directed, check blood glucose daily for type 2 DM folic acid 1 mg tablet FOLIC ACID TABLET L.ACIDOPH, PARACASEI,B. LACTIS ORAL Take by mouth. hydrOXYchloroQUINE (PLAQUENIL) 200 mg tablet PLAQUENIL TABLET amLODIPine (NORVASC) 2.5 mg tablet hydrocortisone 2.5 % cream Apply to affected area. leflunomide (ARAVA) 20 mg tablet loratadine 10 mg dissolvable tablet Take 10 mg by mouth. montelukast (SINGULAIR) 10 mg tablet levothyroxine (SYNTHROID) 175 mcg tablet levothyroxine (SYNTHROID) 200 mcg tablet OZEMPIC 1 mg/dose (4 mg/3 mL) pen injector topiramate (TOPAMAX) 100 mg tablet Take 100 mg by mouth twice daily. Levothyroxine 150 mcg cap Take 150 mcg by mouth once daily. VALSARTAN ORAL Take 20 mg by mouth once daily. hydrOXYchloroQUINE (PLAQUENIL) 200 mg tablet Take 200 mg by mouth twice daily. tiZANidine HCl 4 mg capsule Take 4 mg by mouth three times daily as needed. LACTOBACILLUS RHAMNOSUS GG (CULTURELLE ORAL) Take by mouth once daily. DULoxetine (CYMBALTA) 60 mg capsule Take 1 capsule by mouth once daily. At No current facility-administered medications for this visit. I have reviewed the nurses notes and I am aware of the family/social history. Since the last evaluation the medical history has not changed. PHYSICAL EXAMINATION: Vitals: BP 154/75 Pulse 74 Resp 19 Ht 5' 3.6 (1.62m) Wt 356 lb (161.5kg) SpO2 96% BMI 61.91 kg/(m^2). GENERAL: healthy, alert, no distress, cooperative, smiling SKIN: Skin color, texture, turgor normal. No rashes or lesions. HEENT: PERRL, EOMI, and normal dentition CARDIAC: normal S1 and S2; no rubs, murmurs, or gallops LUNGS: Lungs clear to auscultation. Good diaphragmatic excursion. Musculoskeletal: deferred exam ASSESSMENT: Chronic pain syndrome Osteoarthritis of both knees, unspecified osteoarthritis type Generalized osteoarthrosis, involving multiple sites Inflammatory spondylopathy of lumbar region Patient is stable. Chronic pain is persistent. Medications are helping Michelle Self to have an improved quality of life. Patient compliance with Opioid Contract: patient is compliant PDMP website checked and validated. All prescriptions have been APPROPRIATELY filled. No suspicious activity was identified. 11/24/2021 by Sania Jones MA PLAN: The patient understands the goal of our treatment is a reduction in pain and/or an improved level of functioning with activities of daily living. If at any time the patient does not feel the medications are helping them to achieve these goals, the medications may be discontinued. The patient reports a reduction in pain and/or an improved level of functioning with activities of daily living, denies any significant adverse effects, is compliant with the pain management agreement and there are no signs of medication misuse, abuse or diversion; therefore, the medications will be continued. The documentation for this encounter was entered by Sania Jones medical services coordinator, for Dr. Génesis Casanova on November 24, 2021 I, Dr. Génesis Casanova, personally performed the services described in this documentation. All medical record entries made by the scribe were at my direction and in my presence. I have reviewed the chart and discharge instructions and agree that the record reflects my personal performance and is accurate and complete. Electronically Signed: Dr. Casanova. November 24, 2021 documented in this encounter [facility] 10-30-2021 Miscellaneous Notes Formattin g of this note is different from the original. Patient phones requesting refills as follows: Requested Prescriptions Pending Prescriptions Disp Refills DULoxetine (CYMBALTA) 30 mg capsule 30 capsule 0 Sig: Take 1 capsule by mouth once daily. In am DULoxetine (CYMBALTA) 60 mg capsule 30 capsule 0 Sig: Take 1 capsule by mouth daily at bedtime. Please review and advise. Becca Dudley RN documented in this encounter [facility] 10-22-2021 Miscellaneous Notes Formattin g of this note is different from the original. The following approved medication requests have been transmitted electronically. Requested Prescriptions Signed Prescriptions Disp Refills oxyCODONE-acetaminophen (PERCOCET 10) 10-325 mg tablet 90 tablet 0 Sig: Take 1 tablet by mouth every 8 hours as needed for pain for up to 30 days. Do not start before October 30, 2021. Authorizing Provider: ESTEPHANIA RONDON APRN.CNP Pt is requesting a refill of the Oxycodone, she missed her appt. on 10/06 due to having trouble with MyChart. She is re-scheduled for 11/18. Please advise. Carline Cabrera RN documented in this encounter [facility] 09-23-2021 Miscellaneous Notes The following approved medication requests have been transmitted electronically. Signed Prescriptions Disp Refills DULoxetine (CYMBALTA) 30 mg capsule 30 capsule 0 Sig: Take 1 capsule by mouth once daily. In am JAHAIRA: No Authorizing Provider: ESTEPHANIA RONDON DULoxetine (CYMBALTA) 60 mg capsule 30 capsule 0 Sig: Take 1 capsule by mouth once daily. At hs Authorizing Provider: ESTEPHANIA RONDON oxyCODONE-acetaminophen (PERCOCET 10) 10-325 mg tablet 90 tablet 0 Sig: Take 1 tablet by mouth every 8 hours as needed for up to 30 days. Do not start before September 25, 2021. LEN Class: C-II JAHAIRA: No Authorizing Provider: ESTEPHANIA RONDON APRN.CNP Patient phones requesting refills as follows: Pending Prescriptions Disp Refills DULOXETINE 30 MG CAPSULE,DELAYED RELEASE 30 capsule 0 Sig: Take 1 capsule by mouth once daily. In am JAHAIRA: No DULOXETINE 60 MG CAPSULE,DELAYED RELEASE 30 capsule 0 Sig: Take 1 capsule by mouth once daily. At hs OXYCODONE-ACETAMINOPHEN 10 MG-325 MG TABLET 90 tablet 0 Sig: Take 1 tablet by mouth every 8 hours as needed. LEN Class: C-II JAHAIRA: No Please review and advise. Chanel Flores RN documented in this encounter [facility] 08-28-2021 Instructions Estephania Rondon APRN.CNP - 08/28/2021 10:38 AM EDT Continue Cymbalta(90mg total) for fibromyalgia. Continue Percocet (mmeq=60.00) Continue dietary modification and weight loss efforts. Continue SCStim therapy with [employer]. Continue tx with Dr. Wyman test automation architect. Continue Zanaflex 4 mg TID PRN. PA and schedule ramon synvisc inj.PRN F/U in 1 month -can schedule through [employer] or call [phone] for assistance documented in this encounter [facility] 08-28-2021 History of Presen t illness Narrative Summary: f/u DATE: August 28, 2021 This video visit was performed via [employer] video visit. Patient consented to receive health care services via virtual visit for this encounter Provider Location: [facility] Facility Patient Location: Patient Home or Place of Residence Risks, benefits, and limitations of receiving care virtually were discussed with the patient. The patient expressed understanding and is willing to proceed. Chief Complaint: Pain _ History of Present Illness: Michelle Self is a 60 year old year old female being seen at [facility] for a evaluation and/or management of their chronic pain. Michelle Self last had an office vist on 12/09/20, virtual visit on 08/04/21. Since the last office visit her pain level has remained the same. VAS: 7/10 Pain Location: back and ramon knee pain Timing:constant Character/Quality:dull Radiation:denies Numbness:denies Burning:denies Tingling:denies Weakness:ramon legs Falls:denies Alleviating Factors:inactiviy Aggravating Factors:movement The patient denies any bowel or bladder dysfunction. Since the last office visit the patients medical history has not changed. The patient denies any new diagnoses, hospital visits or ER visits. The patient is currently prescribed Percocet, Zanaflex and cymbalta from our office. The last dose was taken today at 9:30 a.m. The medications are partially effective. The patient denies nausea, vomiting, rashes, drowsiness,weight gain, weight loss,dizziness,and fatigue. She uses a probiotic for consitpaion. The OARRS report has been reviewed and is consistent with the patients medical history and medication intake. Pt. States she picked up her Percocet yesterday, this is not reflected on the OARRS Report. Last Urine Drug Screen (UDS): 05/07/2021. The UDS has been reviewed and is consistent with medications prescribed. REVIEW OF SYSTEMS: GENERAL: No weight loss, malaise or fevers RESPIRATORY: Negative for cough, hemoptysis, wheezing, COPD, dyspnea or shortness of breath. CARDIOVASCULAR: Negative for chest pain, leg swelling, hypertension, CHF or palpitations GI: No nausea, vomiting, or diarrhea. MUSCULOSKELETAL: Positive for joint pain or swelling, back pain or muscle pain. PAST MEDICAL HISTORY Diagnosis Date Constipation Depression Fibromyalgia Foot drop right Graves disease graves disease HTN (hypertension) Hypothyroid LBP (low back pain) DDD lumbar spine, arthropathy of lumbar facet joint Mitral valve prolapse Obesities, morbid (HCC) Other malaise and fatigue RLS (restless legs syndrome) PAST SURGICAL HISTORY Procedure Laterality Date DELIVERY ONLY , low cervical x2 LIG/TRNSXJ FLP TUBE ABDL/VAG APPR UNI/BI Tubal ligation PAST SURGICAL HISTORY OF thymus- enlarged PAST SURGICAL HISTORY OF eye, left FAMILY HISTORY Problem Relation Age of Onset Diabetes Paternal Grandfather Social History Tobacco Use Smoking status: Former Smoker Quit date: 09/23/1999 Years since quittin.9 Smokeless tobacco: Former User Quit date: 04/10/1999 Substance Use Topics Alcohol use: No Drug use: No Allergies: Adhesive Tape-Silic* Rash Chloroxylenol Other: See Comments Comment:Per patient no recent allergy r/t soap (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 At hs topiramate (TOPAMAX) 100 mg tablet Take 100 mg by mouth twice daily. Levothyroxine 150 mcg cap Take 150 mcg by mouth once daily. oxyCODONE-acetaminophen (PERCOCET 10) 10-325 mg tablet Take 1 tablet by mouth every 8 hours as needed. VALSARTAN ORAL Take 20 mg by mouth once daily. hydroxychloroquine (PLAQUENIL) 200 mg tablet Take 200 mg by mouth twice daily. tiZANidine HCl 4 mg capsule Take 4 mg by mouth three times daily as needed. LACTOBACILLUS RHAMNOSUS GG (CULTURELLE ORAL) Take by mouth once daily. DULoxetine (CYMBALTA) 20 mg capsule Take 30 mg by mouth once daily. In am No current facility-administered medications for this visit. PHYSICAL EXAMINATION: VIDEO EXAM: (performed via video enabled technology) GENERAL: alert and appropriate, in no distress and well-hydrated, well nourished HEAD: normocephalic, no abnormality or lesion noted RESPIRATORY: breathing non-labored NEUROLOGIC: no obvious deficit ASSESSMENT: Patient is stable. Chronic pain is persistent. Medications are helping Mcihelle Self to have an improved quality of life. Patient compliance with Opioid Contract: patient is compliant Encounter Diagnosis ICD-10-CM 1. Chronic pain syndrome G89.4 2. Osteoarthritis of both knees, unspecified osteoarthritis type M17.0 3. Generalized osteoarthrosis, involving multiple sites M15.9 4. Inflammatory spondylopathy of lumbar region (HCC) M46.96 PLAN: The patient understands the goal of our treatment is a reduction in pain and/or an improved level of functioning with activities of daily living. If at any time the patient does not feel the medications are helping them to achieve these goals, the medications may be discontinued. The patient reports a reduction in pain and/or an improved level of functioning with activities of daily living, denies any significant adverse effects, is compliant with the pain management agreement and there are no signs of medication misuse, abuse or diversion; therefore, the medications will be continued. Continue Cymbalta(90mg total) for fibromyalgia. Continue Percocet (mmeq=60.00) Continue dietary modification and weight loss efforts. Continue SCStim therapy with [employer]. Continue tx with Dr. Wyman test automation architect. Continue Zanaflex 4 mg TID PRN. PA and schedule ramon synvisc inj.PRN F/U in 1 month -can schedule through [employer] or call [phone] for assistance Estephania Rondon APRN.VY documented in this encounter [facility] Encounter for long-term (current) use of high-risk medication- Primary Encounter for long-term (current) use of other medications [facility] Diagnosis Encounter for long-term (current) use of high-risk medication Encounter for long-term (current) use of other medications [facility] Diagnosis Chronic pain syndrome- Primary Encounter for long-term (current) use of high-risk medication Encounter for long-term (current) use of other medications Morbid obesity (HCC) Morbid obesity [facility] Diagnosis Encounter for long-term (current) use of high-risk medication Encounter for long-term (current) use of other medications [facility] Diagnosis Displacement of lumbar intervertebral disc without myelopathy- Primary Other spondylosis, lumbosacral region Osteoarthritis of both knees, unspecified osteoarthritis type Lumbar radiculopathy Thoracic or lumbosacral neuritis or radiculitis, unspecified Chronic pain syndrome High risk medication use Encounter for long-term (current) use of other medications [facility] Diagnosis Chronic pain syndrome [facility] Diagnosis Chronic pain syndrome- Primary Displacement of lumbar intervertebral disc without myelopathy Other spondylosis, lumbosacral region Osteoarthritis of both knees, unspecified osteoarthritis type Lumbar radiculopathy Thoracic or lumbosacral neuritis or radiculitis, unspecified High risk medication use Encounter for long-term (current) use of other medications Encounter for long-term (current) use of high-risk medication Encounter for long-term (current) use of other medications Generalized osteoarthrosis, involving multiple sites Inflammatory spondylopathy of lumbar region (HCC) Unspecified inflammatory spondylopathy documented in this encounter [facility] note* Diagnosis Chronic pain syndrome documented in this encounter [facility] note* Diagnosis Chronic pain syndrome- Primary Displacement of lumbar intervertebral disc without myelopathy Other spondylosis, lumbosacral region Osteoarthritis of both knees, unspecified osteoarthritis type Lumbar radiculopathy Thoracic or lumbosacral neuritis or radiculitis, unspecified High risk medication use Encounter for long-term (current) use of other medications Encounter for long-term (current) use of high-risk medication Encounter for long-term (current) use of other medications Generalized osteoarthrosis, involving multiple sites Inflammatory spondylopathy of lumbar region (HCC) Unspecified inflammatory spondylopathy Myofascial pain syndrome Mylagia and myositis, unspecified Right carpal tunnel syndrome [G56.01 (ICD-10-CM)] Carpal tunnel syndrome documented in this encounter [facility] note* Diagnosis Chronic pain syndrome documented in this encounter [facility] note* Diagnosis Chronic pain syndrome documented in this encounter [facility] note* Diagnosis Chronic pain syndrome- Primary Displacement of lumbar intervertebral disc without myelopathy Other spondylosis, lumbosacral region Osteoarthritis of both knees, unspecified osteoarthritis type Lumbar radiculopathy Thoracic or lumbosacral neuritis or radiculitis, unspecified High risk medication use Encounter for long-term (current) use of other medications Encounter for long-term (current) use of high-risk medication Encounter for long-term (current) use of other medications Generalized osteoarthrosis, involving multiple sites Inflammatory spondylopathy of lumbar region (HCC) Unspecified inflammatory spondylopathy Myofascial pain syndrome Mylagia and myositis, unspecified Right carpal tunnel syndrome [G56.01 (ICD-10-CM)] Carpal tunnel syndrome Morbid obesity (HCC) Morbid obesity Osteoarthritis of both knees, unspecified osteoarthritis type documented in this encounter [facility] note* Diagnosis Chronic pain syndrome documented in this encounter [facility] note* Diagnosis Chronic pain syndrome documented in this encounter [facility] note* Diagnosis Chronic pain syndrome- Primary Displacement of lumbar intervertebral disc without myelopathy Osteoarthritis of both knees, unspecified osteoarthritis type Other spondylosis, lumbosacral region Lumbar radiculopathy Thoracic or lumbosacral neuritis or radiculitis, unspecified High risk medication use Encounter for long-term (current) use of other medications Encounter for long-term (current) use of high-risk medication Encounter for long-term (current) use of other medications Generalized osteoarthrosis, involving multiple sites Inflammatory spondylopathy of lumbar region (HCC) Unspecified inflammatory spondylopathy Myofascial pain syndrome Mylagia and myositis, unspecified Right carpal tunnel syndrome [G56.01 (ICD-10-CM)] Carpal tunnel syndrome Morbid obesity (HCC) Morbid obesity documented in this encounter [facility] note* Diagnosis Chronic pain syndrome documented in this encounter [facility] note* Diagnosis Chronic pain syndrome documented in this encounter [facility] Purpose Family History No Family History Records FoundNo Family History Records FoundNo Family History Records FoundNo Family History Records FoundNo Family History Records FoundNo Family History Records FoundNo Family History Records FoundNo Family History Records Found Advance Directives Documents on File Type Date Recorded 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 [employer] 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 Advance Directives and Livin g Will 08/22/2019 7:47 AM Documents on File Type Date Recorded Patient [employer]ap 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 Advance Directive(s) 02/04/2017 5:43 AM History of Present Illness * Ernesto Norton MD - 04/26/2018 4:52 PM EST Associated Order(s): LG Jt Injection/Arthrocentesis: L knee Post-Procedure Diagnose(s): Primary osteoarthritis of left knee Dictation on: 04/26/2018 4:56 PM by: ERNESTO NORTON [[id number]] LG Jt Injection/Arthrocentesis: L knee Performed by: Ernesto Norton MD Authorized by: Ernesto Norton MD Supporting Documentation: Indications: Pain Procedure Details: Location: Knee Site: L knee Needle size: 22 G Approach: Lateral Medications: 40 mg triamcinolone acetonide 40 mg/mL Anesthetic amount (mL): 2 Patient tolerance: Patient tolerated the procedure well with no immediate complications in this encounter* Ran Cochran MD - 08/22/2019 8:28 AM EDT Assessment The patient has physiologic edema both lower extremities. With a BMI of 60 she has an impaired respiratory pump for venous and lymphatic return. She also has difficulty with her spine requiring a spinal stimulator and her mobility is markedly impaired. She sits the majority of the day with her limbs dependent. The patient therefore does not have a strong muscle pump for venous and lymphatic return. I strongly suspect with a BMI of 60 patient also has an element of pulmonary hypertension and tricuspid insufficiency. Recommendation: 1. I absolutely agree that his sleep study is in order. If she has sleep apnea from her morbid obesity she will develop progressive right heart failure. 2. I absolutely agree with the utilization of compression stockings. Because of the patient's severe morbid obesity she will need custom stockings to be appropriately fitted. These will help with herankle edema and prevent ulceration. 3. The patient's severe morbid obesity will affect her comorbidities and longevity. I began the discussion with the patient about supervised weight loss and bariatric surgery. I suggested that she consider either at the [facility] or [facility]. With a BMI of 60 she is in a class where bariatric surgery has higher risks. Michelle Self 1960 58 y.o. female who presents to the office in consultation for lower extremity edema. The patient remarks that during the COVID epidemic she is gained approximately 25 pounds. The patient has a BMI of 62.3. The patient has no history of deep venous thrombosis or venous insuf ficiency surgery. The patient has no history of varicose veins or venous ulceration. Her predominant concern is that her ankles are becoming progressively swollen. She states that her feet have become swollen and are difficult to get into shoes. The patient also remarked that she has been instructed that she needed a sleep study. Because of her excessive weight obstructive sleep apnea is likely. The patient states that it is easier for her to breathe when she sitting up and her limbs seem to be always dependent. Past Medical History: Diagnosis Date Anxiety Depression Disease of thyroid gland Fibromyalgia, primary Fractures left wrist Hyperlipemia Hypersomnolence Hyperthyroidism Treated with radioactive iodine Tooth decay Past Surgical History: Procedure Laterality Date SECTION, CLASSIC x2 EYE MUSCLE SURGERY for ambylopia INSERTION SPINAL CORD STIMULATOR-LUMBAR THYMECTOMY TONSILLECTOMY TUBAL LIGATION Current Outpatient Medications Medication Sig Dispense Refill amLODIPine (NORVASC) 5 MG tablet Take 2.5 mg by mouth daily . DULoxetine (CYMBALTA) 30 MG capsule Take 30 mg by mouth every morning . DULoxetine (CYMBALTA) 60 MG capsule Take 60 mg by mouth nightly . hydrOXYchloroQUINE (PLAQUENIL) 200 mg tablet Take 200 mg by mouth 2 (two) times a day . lactobacillus combo no.11 (Probiotic) 15 billion cell CpSP Take by mouth daily . levothyroxine (SYNTHROID, LEVOTHROID) 150 MCG tablet Take 150 mcg by mouth once daily . loratadine (CLARITIN) 10 mg tablet Take 10 mg by mouth daily . oxyCODONE-acetaminophen (PERCOCET) 10-325 mg per tablet Take 1 tablet by mouth every 6 (six) hours as needed . tiZANidine (ZANAFLEX) 4 MG capsule Take 4 mg by mouth 3 (three) times a day as needed . loratadine (CLARITIN REDITABS) 10 mg dissolvable tablet Dissolve 10 mg on top of tongue daily . olmesartan (BENICAR) 20 MG tablet Take 20 mg by mouth daily . No current facility-administered medications for this visit. Family History Problem Relation Age of Onset No Known Problems Mother No Known Problems Sister No Known Problems Brother Social History Tobacco Use Smoking status: Former Smoker Packs/day: 1.00 Years: 20.00 Pack years: 20.00 Smokeless tobacco: Never Used Tobacco comment: quit 1999 Substance Use Topics Alcohol use: No Drug use: Never Review of Systems Constitution: Positive for malaise/fatigue. Negative for decreased appetite and weight loss. HENT: Negative for hearing loss, hoarse voice and nosebleeds. Eyes: Negative for double vision, vision loss in left eye and vision loss in right eye. Cardiovascular: Positive for dyspnea on exertion, leg swelling and palpitations. Negative for chestpain, claudication and orthopnea. Respiratory: Negative for cough, hemoptysis and sputum production. Endocrine: Negative for cold intolerance, heat intolerance, polydipsia, polyphagia and polyuria. Hematologic/Lymphatic: Bruises/bleeds easily. Skin: Negative for poor wound healing, rash and skin cancer. Musculoskeletal: Positive for arthritis, back pain and joint pain. Gastrointestinal: Negative for abdominal pain, hematochezia and melena. Genitourinary: Positive for hesitancy. Negative for dysuria, frequency and hematuria. Neurological: Negative for aphonia, brief paralysis and seizures. Psychiatric/Behavioral: Negative for depression and memory loss. The patient is nervous/anxious. BP 135/85 (BP Location: Left arm) Pulse 71 Ht 5' 4 Wt (!) 164.7 kg (363 lb) BMI 62.31 kg/m Physical Exam Constitutional: She is oriented to person, place, and time. She appears well- developed and well-nourished. Morbid obesity severe HENT: Head: Normocephalic and atraumatic. Eyes: Pupils are equal, round, and reactive to light. Conjunctivae and EOM are normal. No scleral icterus. Neck: Normal range of motion. Neck supple. Cardiovascular: Normal rate and regular rhythm. Exam reveals distant heart sounds. Exam reveals no gallop. No murmur heard. Pulses: Carotid pulses are 2+ on the right side and 2+ on the left side. Radial pulses are 2+ on the right side and 2+ on the left side. Dorsalis pedis pulses are 2+ on the right side and 2+ on the left side. Posterior tibial pulses are 0 on the right side and 0 on the left side. Pulmonary/Chest: Effort normal and breath sounds normal. No respiratory distress. Abdominal: Soft. Bowel sounds are normal. She exhibits no distension. There is no abdominal tenderness. Musculoskeletal: Normal range of motion. General: No tenderness or edema. Comments: 1-2+ pitting edema of the feet. The majority of the leg has severe obesity with minimal edema. Neurological: She is alert and oriented to person, place, and time. No cranial nerve deficit. Coordination normal. Skin: Skin is warm and dry. Psychiatric: She has a normal mood and affect. Her behavior is normal. Thought content normal. Little insight as to the health effects of severe morbid obesity. The note was dictated using [employer] system. The voice recognition software is inherently subject to errors including those of syntax and sound- alike substitutions which may escape proofreading. In such instances, original meaning may be extrapolated by contextual derivation. documented in this encounter Assessments Diagnosis Primary osteoarthritis of left knee- Primary Diagnosis Venous (peripheral) insufficiency Unspecified venous (peripheral) insufficiency Morbid obesity with BMI of 60.0-69.9, adult (HCC) Edema of both legs Edema Instructions * Patient Instructions* Estella Mendoza MA - 08/22/2019 7:57 AM EDT How to contact your Care Team: Provider: MD Isak Gonzalez [facility] Nurse: Stefanie Pelletier RN In case of an emergency please call 911. When in need of refills please call the phone number listed above. Please include medication name, pharmacy name and specify 30 or 90 day supply Please check with your pharmacy within 24 hours of your request for refill. You must follow up as directed to continue current refills. Thank you! documented in this encounter Reason for Referral Specialty Diagnoses / Procedures Referred By Contac t Referred To Contact Diagnoses Encounter for long-term (current) use of high-risk medication Chronic pain syndrome Morbid obesity (HCC) Procedures [facility] Génesis Casanova, DO [address] [place] [address] Иван Nguyen [address] [place] [address], [address] [place] [address] Referral ID Status Reason Start Date Expiration Date Visits Requested Visits Authorized [id number] Ref Not Required PCP Requested Referral 11/24/2021 11/24/2022 1 1 Specialty Diagnoses / Procedures Referred By Contac t Referred To Contact Diagnoses Chronic pain syndrome Susy Alonso APRN.UROLOGY TEACHER [address] [place] [address] Referral ID Status Reason Start Date Expiration Date Visits Re quested Visits Authorized [id number] Closed 1 1 Referral ID Status Reason Start Date Expiration Date Visits Re quested Visits Authorized [id number] Closed 1 1 Specialty Diagnoses / Procedures Referred By Contac t Referred To Contact Diagnoses Chronic pain syndrome Génesis Casanova, DO [address] [place] [address] Referral ID Status Reason Start Date Expiration Date Visits Re quested Visits Authorized [id number] Closed 1 1 Specialty Diagnoses / Procedures Referred By Contac t Referred To Contact Diagnoses Chronic pain syndrome Estephania Rondon, [employer]ER.HOME [facility]ID [address] [place] [address] Referral ID Status Reason Start Date Expiration Date Visits Re quested Visits Authorized [id number] Closed 1 1 Specialty Diagnoses / Procedures Referred By Contac t Referred To Contact Diagnoses Chronic pain syndrome Brett Pastor, [employer]UC[employer] POL[employer]ER.HOME [facility]ID [address] [place] [address] Referral ID Status Reason Start Date Expiration Date V isits Requested Visits Authorized [id number] Pending Review 1 1 Additional Source Comments INFORMATION SOURCE (unrecogn ized section and content) DATE CREATED AUTHOR AUTHOR'S ORGANIZ ATION 08/16/2017 [facility] DATE CREATED AUTHOR AUTHOR'S ORGANIZ ATION 08/17/2017 [facility] DATE CREATED AUTHOR AUTHOR'S ORGANIZ ATION 08/31/2017 [facility] DATE CREATED AUTHOR AUTHOR'S ORGANIZ ATION 09/13/2019 [facility] DATE CREATED AUTHOR AUTHOR'S ORGANIZ ATION 08/04/2021 [facility] DATE CREATED AUTHOR AUTHOR'S ORGANIZ ATION 07/08/2022 [facility] DATE CREATED AUTHOR AUTHOR'S ORGANIZ ATION 03/17/2023 [facility] Reason for Visit (unrecogniz ed section and content) Specialty Diagnoses / Procedures Referred By Contac t Referred To Contact PAIN MANAGEMENT Diagnoses Encounter for general adult medical examination without abnormal findings Procedures EST PATIENT VISIT LEVEL 1 OFFICE/OUTPATIENT ESTABLISHED SF MDM 10-19 MIN OFFICE/OUTPATIENT ESTABLISHED LOW MDM 20-29 MIN OFFICE/OUTPATIENT ESTABLISHED MOD MDM 30-39 MIN OFFICE/OUTPATIENT ESTABLISHED HIGH MDM 40-54 MIN Janet Peña, HOME AID [address] [facility] [address] [place] [address] Génesis Casanova, [address] [place] [address] Referral ID Status Reason Start Date Expiration Date Visits Requested Visits Authorized [id number] Authorized OON/Self Pay Override 10/07/2022 02/20/2023 99 99 Reason Comments Pain Referral ID Status Reason Start Date Expiration Date V isits Requested Visits Authorized [id number] Closed OON/Self Pay Override 07/28/2022 02/20/2023 1 1 Reason Comments Pain Reason Comments PT Initial Evaluation KENDRA INSUF Status Reason Specialty Diagnoses / Procedures Referre d By Contact Referred To Contact Closed Cardiology Diagnoses Venous (peripheral) insufficiency Girish Briggs MD [address] [place] [address] Ran Cochran MD [address] [place] [id number] Reason Onset Date Comments Refill Request 09/22/2021 Reason Comments Patient Question Reason Onset Date Comments Refill Request 10/30/2021 Reason Comments Pain Reason Onset Date Comments Refill Request 11/30/2021 Reason Comments Refill Request Reason Comments Knee Pain Reason Onset Date Comments Refill Request 03/10/2022 Reason Onset Date Comments Refill Request 04/09/2022 Reason Onset Date Comments Refill Request 05/10/2022 Reason Comments Follow Up Specialty Diagnoses / Procedures Referred By Yosvany t Referred To Contact Diagnoses Encounter for long-term (current) use of high-risk medication Chronic pain syndrome Morbid obesity (HCC) Procedures [facility] Génesis Casanova DO [address] [place] [address] Иван Nguyen [address] [place] [address], [address] [place] [address] Referral ID Status Reason Start Date Expiration Date Visits Requested Visits Authorized [id number] Ref Not Required PCP Requested Referral 11/24/2021 11/24/2022 1 1 Reason Onset Date Comments Refill Request 06/09/2022 Reason Onset Date Comments Refill Request 08/09/2022 Reason Onset Date Comments Refill Request 09/08/2022 Reason Onset Date Comments Refill Request 10/08/2022 Reason Onset Date Comments Refill Request 11/08/2022 Reason Comments Med Change Request Reason Onset Date Comments Refill Request 12/10/2022 Reason Onset Date Comments Refill Request 12/30/2022 Reason Onset Date Comments Refill Request 01/10/2023 Reason Comments PA Submitted for roxicodone Reason Comments roxicodone approval Reason Onset Date Comments Refill Request 04/06/2023 Source Comments (unrecognize d section and content) In the event this informatio n is protected by the Federal Confidentiality of Alcohol and Drug Abuse Patient Records regulations: The Federal rules restrict any use of the information to criminally investigate or prosecute any alcohol or drug abuse patient.[facility] the event this information is protected by the Federal Confidentiality of Alcohol and Drug Abuse Patient Records regulations: The Federal rules restrict any use of the information to criminally investigate or prosecute any alcohol or drug abuse patient.[facility] the event this information is protected by the Federal Confidentiality of Alcohol and Drug Abuse Patient Records regulations: The Federal rules restrict any use of the information to criminally investigate or prosecute any alcohol or drug abuse patient.[facility] the event this information is protected by the Federal Confidentiality of Alcohol and Drug Abuse Patient Records regulations: The Federal rules restrict any use of the information to criminally investigate or prosecute any alcohol or drug abuse patient.[facility] the event this information is protected by the Federal Confidentiality of Alcohol and Drug Abuse Patient Records regulations: The Federal rules restrict any use of the information to criminally investigate or prosecute any alcohol or drug abuse patient.[facility] the event this information is protected by the Federal Confidentiality of Alcohol and Drug Abuse Patient Records regulations: The Federal rules restrict any use of the information to criminally investigate or prosecute any alcohol or drug abuse patient.[facility] the event this information is protected by the Federal Confidentiality of Alcohol and Drug Abuse Patient Records regulations: The Federal rules restrict any use of the information to criminally investigate or prosecute any alcohol or drug abuse patient.[facility] the event this information is protected by the Federal Confidentiality of Alcohol and Drug Abuse Patient Records regulations: The Federal rules restrict any use of the information to criminally investigate or prosecute any alcohol or drug abuse patient.[facility] the event this information is protected by the Federal Confidentiality of Alcohol and Drug Abuse Patient Records regulations: The Federal rules restrict any use of the information to criminally investigate or prosecute any alcohol or drug abuse patient.[facility] the event this information is protected by the Federal Confidentiality of Alcohol and Drug Abuse Patient Records regulations: The Federal rules restrict any use of the information to criminally investigate or prosecute any alcohol or drug abuse patient.[facility] the event this information is protected by the Federal Confidentiality of Alcohol and Drug Abuse Patient Records regulations: The Federal rules restrict any use of the information to criminally investigate or prosecute any alcohol or drug abuse patient.[facility] the event this information is protected by the Federal Confidentiality of Alcohol and Drug Abuse Patient Records regulations: The Federal rules restrict any use of the information to criminally investigate or prosecute any alcohol or drug abuse patient.[facility] the event this information is protected by the Federal Confidentiality of Alcohol and Drug Abuse Patient Records regulations: The Federal rules restrict any use of the information to criminally investigate or prosecute any alcohol or drug abuse patient.[facility] the event this information is protected by the Federal Confidentiality of Alcohol and Drug Abuse Patient Records regulations: The Federal rules restrict any use of the information to criminally investigate or prosecute any alcohol or drug abuse patient.[facility] the event this information is protected by the Federal Confidentiality of Alcohol and Drug Abuse Patient Records regulations: The Federal rules restrict any use of the information to criminally investigate or prosecute any alcohol or drug abuse patient.[facility] the event this information is protected by the Federal Confidentiality of Alcohol and Drug Abuse Patient Records regulations: The Federal rules restrict any use of the information to criminally investigate or prosecute any alcohol or drug abuse patient.[facility] the event this information is protected by the Federal Confidentiality of Alcohol and Drug Abuse Patient Records regulations: The Federal rules restrict any use of the information to criminally investigate or prosecute any alcohol or drug abuse patient.[facility] the event this information is protected by the Federal Confidentiality of Alcohol and Drug Abuse Patient Records regulations: The Federal rules restrict any use of the information to criminally investigate or prosecute any alcohol or drug abuse patient.[facility] the event this information is protected by the Federal Confidentiality of Alcohol and Drug Abuse Patient Records regulations: The Federal rules restrict any use of the information to criminally investigate or prosecute any alcohol or drug abuse patient.[facility]In the event this information is protected by the Federal Confidentiality of Alcohol and Drug Abuse Patient Records regulations: The Federal rules restrict any use of the information to criminally investigate or prosecute any alcohol or drug abuse patient.[facility]In the event this information is protected by the Federal Confidentiality of Alcohol and Drug Abuse Patient Records regulations: The Federal rules restrict any use of the information to criminally investigate or prosecute any alcohol or drug abuse patient.[facility] the event this information is protected by the Federal Confidentiality of Alcohol and Drug Abuse Patient Records regulations: The Federal rules restrict any use of the information to criminally investigate or prosecute any alcohol or drug abuse patient.[facility] the event this information is protected by the Federal Confidentiality of Alcohol and Drug Abuse Patient Records regulations: The Federal rules restrict any use of the information to criminally investigate or prosecute any alcohol or drug abuse patient.[facility]In the event this information is protected by the Federal Confidentiality of Alcohol and Drug Abuse Patient Records regulations: The Federal rules restrict any use of the information to criminally investigate or prosecute any alcohol or drug abuse patient.[facility]In the event this information is protected by the Federal Confidentiality of Alcohol and Drug Abuse Patient Records regulations: The Federal rules restrict any use of the information to criminally investigate or prosecute any alcohol or drug abuse patient.[facility] the event this information is protected by the Federal Confidentiality of Alcohol and Drug Abuse Patient Records regulations: The Federal rules restrict any use of the information to criminally investigate or prosecute any alcohol or drug abuse patient.[facility] the event this information is protected by the Federal Confidentiality of Alcohol and Drug Abuse Patient Records regulations: The Federal rules restrict any use of the information to criminally investigate or prosecute any alcohol or drug abuse patient.[facility]In the event this information is protected by the Federal Confidentiality of Alcohol and Drug Abuse Patient Records regulations: The Federal rules restrict any use of the information to criminally investigate or prosecute any alcohol or drug abuse patient.[facility]In the event this information is protected by the Federal Confidentiality of Alcohol and Drug Abuse Patient Records regulations: The Federal rules restrict any use of the information to criminally investigate or prosecute any alcohol or drug abuse patient.[facility]In the event this information is protected by the Federal Confidentiality of Alcohol and Drug Abuse Patient Records regulations: The Federal rules restrict any use of the information to criminally investigate or prosecute any alcohol or drug abuse patient.[facility]In the event this information is protected by the Federal Confidentiality of Alcohol and Drug Abuse Patient Records regulations: The Federal rules restrict any use of the information to criminally investigate or prosecute any alcohol or drug abuse patient.[facility]In the event this information is protected by the Federal Confidentiality of Alcohol and Drug Abuse Patient Records regulations: The Federal rules restrict any use of the information to criminally investigate or prosecute any alcohol or drug abuse patient.[facility]In the event this information is protected by the Federal Confidentiality of Alcohol and Drug Abuse Patient Records regulations: The Federal rules restrict any use of the information to criminally investigate or prosecute any alcohol or drug abuse patient.[facility]In the event this information is protected by the Federal Confidentiality of Alcohol and Drug Abuse Patient Records regulations: The Federal rules restrict any use of the information to criminally investigate or prosecute any alcohol or drug abuse patient.[facility]In the event this information is protected by the Federal Confidentiality of Alcohol and Drug Abuse Patient Records regulations: The Federal rules restrict any use of the information to criminally investigate or prosecute any alcohol or drug abuse patient.[facility]In the event this information is protected by the Federal Confidentiality of Alcohol and Drug Abuse Patient Records regulations: The Federal rules restrict any use of the information to criminally investigate or prosecute any alcohol or drug abuse patient.[facility]In the event this information is protected by the Federal Confidentiality of Alcohol and Drug Abuse Patient Records regulations: The Federal rules restrict any use of the information to criminally investigate or prosecute any alcohol or drug abuse patient.[facility]In the event this information is protected by the Federal Confidentiality of Alcohol and Drug Abuse Patient Records regulations: The Federal rules restrict any use of the information to criminally investigate or prosecute any alcohol or drug abuse patient.[facility]In the event this information is protected by the Federal Confidentiality of Alcohol and Drug Abuse Patient Records regulations: The Federal rules restrict any use of the information to criminally investigate or prosecute any alcohol or drug abuse patient.[facility]In the event this information is protected by the Federal Confidentiality of Alcohol and Drug Abuse Patient Records regulations: The Federal rules restrict any use of the information to criminally investigate or prosecute any alcohol or drug abuse patient.[facility] Care Teams (unrecognized sec tion and content) Shade Cutter Relationship Specialty Start Date End Date Janet PeñaVY PCP - General Internal Medicine 09/21/16 Shade Cutter Relationship Specialty Start Date End Date Janet Peña HOME AID PCP - General Internal Medicine 09/21/16 Shade Cutter Relationship Specialty Start Date End Date Janet Peña HOME AID PCP - General Internal Medicine 09/21/16 Shade Cutter Relationship Specialty Start Date End Date Janet Peña, HOME AID PCP - General Internal Medicine 09/21/16 Shade Cutter Relationship Specialty Start Date End Date Janet Peña, HOME AID PCP - General Internal Medicine 09/21/16 Shade Cutter Relationship Specialty Start Date End Date Janet Peña, HOME AID PCP - General Internal Medicine 09/21/16 Shade Cutter Relationship Specialty Start Date End Date Janet Peña, HOME AID PCP - General Internal Medicine 09/21/16 Shade Cutter Relationship Specialty Start Date End Date Janet Peña, HOME AID PCP - General Internal Medicine 09/21/16 Shade Cutter Relationship Specialty Start Date End Date Janet Peña, HOME AID PCP - General Internal Medicine 09/21/16 Shade Cutter Relationship Specialty Start Date End Date Janet Peña, HOME AID PCP - General Internal Medicine 09/21/16 Shade Cutter Relationship Specialty Start Date End Date Janet Peña, HOME AID PCP - General Internal Medicine 09/21/16 Shade Cutter Relationship Specialty Start Date End Date Janet Peña, HOME AID PCP - General Internal Medicine 09/21/16 Shade Cutter Relationship Specialty Start Date End Date Janet Peña, HOME AID PCP - General Internal Medicine 09/21/16 Shade Cutter Relationship Specialty Start Date End Date Janet Peña, HOME AID PCP - General Internal Medicine 09/21/16 Shade Cutter Relationship Specialty Start Date End Date Ciesa, Talisha, HOME AID PCP - General Internal Medicine 09/21/16 Shade Cutter Relationship Specialty Start Date End Date Janet Peña CNP PCP - General Internal Medicine 09/21/16 Shade Cutter Relationship Specialty Start Date End Date Janet Peña CNP PCP - General Internal Medicine 09/21/16 Shade Cutter Relationship Specialty Start Date End Date Janet Peña CNP PCP - General Internal Medicine 09/21/16 Shade Cutter Relationship Specialty Start Date End Date Janet Peña CNP PCP - General Internal Medicine 09/21/16 Shade Cutter Relationship Specialty Start Date End Date Janet Peña CNP PCP - General Internal Medicine 09/21/16 Shade Cutter Relationship Specialty Start Date End Date Janet Peña CNP PCP - General Internal Medicine 09/21/16 Shade Cutter Relationship Specialty Start Date End Date Janet Peña CNP PCP - General Internal Medicine 09/21/16 Shade Cutter Relationship Specialty Start Date End Date Janet Peña CNP PCP - General Internal Medicine 09/21/16 Shade Cutter Relationship Specialty Start Date End Date Janet Peña CNP PCP - General Internal Medicine 09/21/16 Shade Cutter Relationship Specialty Start Date End Date Janet Peña CNP PCP - General Internal Medicine 09/21/16 Shade Cutter Relationship Specialty Start Date End Date Janet Peña CNP PCP - General Internal Medicine 09/21/16 Shade Cutter Relationship Specialty Start Date End Date Janet Peña CNP PCP - General Internal Medicine 09/21/16 Shade Cutter Relationship Specialty Start Date End Date Janet Peña CNP PCP - General Internal Medicine 09/21/16 Shade Cutter Relationship Specialty Start Date End Date Janet Peña CNP PCP - General Internal Medicine 09/21/16 FOR RECORDS PERTAINING TO PATIENTS WHO ARE OR HAVE BEEN ENROLLED IN A CHEMICAL DEPENDENCY/SUBSTANCEABUSE PROGRAM, SOME INFORMATION MAY BE OMITTED. This clinical summary was aggregated from multiple sources. Caution should be exercised in using it in the provision of clinical care. This summary normalizes information from multiple sources, and as a consequence, information in this document may materially change the coding, format and clinical context of patient data. In addition, data may be omitted in some cases. CLINICAL DECISIONS SHOULD BE BASED ON THE PRIMARY CLINICAL RECORDS. [facility]. provides no warranty or guarantee of the accuracy or completeness of information in this document.
== END | disposition home or self-care (01) ==
LOC: OPBI 08:31
PROVIDERS: PCP Nurse Practitioner Family; Referring Provider Nurse Practitioner Women's Health; Visit Provider Nurse Practitioner Women's Health
DX: Z12.31 Encounter for screening mammogram for malignant neoplasm of breast (principal)
CPT/HCPCS: 77063; 77067

== ENCOUNTER → 2023-07-06 | Outpatient (CLI) | payer MEDICARE, SELFPAY ==
[2023-07-06 12:42] LABS: Absolute Lymphocyte Count 1.95 X10^3/uL (0.83-4.51); Absolute Neutrophil Count 3.1 X10^3/uL (2.0-7.7); Basophil# 0.07 X10^3/uL; Basophil% 1.2 % (0-1); Eosinophil# 0.45 X10^3/uL; Eosinophils% 7.5 % (0-5); Hematocrit 39.9 % (37-47); Hemoglobin 12.9 g/dL (12.0-15.0); Lymphocyte # 1.95 X10^3/ul (0.83-4.51); Lymphocyte % 32.5 % (19-41); Mean Corp Hgb Conc 32.3 g/dL (32-36); Mean Corpuscular Hgb 29.3 pg (27.0-32.0); Mean Corpuscular Volume 90.5 fL (81-99); Monocyte# 0.39 X10^3/uL; Monocyte% 6.5 % (0-10); NRBC Flagged by Analyzer 0 % (0-5); Neutrophil # 3.13 X10^3/uL (2.7-7.7); Neutrophil % 52.1 % (47-70); Platelet Count 213 K/mm3 (150-450); RBC Distribution Width SD 42.8 fl (35.1-43.9); Red Blood Count 4.41 M/mm3 (4.2-5.4)
[2023-07-06 13:05] LABS: ALB/GLOB Ratio 0.9 RATIO (0.9-2.4); AST(SGOT) 22 U/L (15-37); Alanine Aminotransfer ALT/SGPT 36 U/L (13-56); Albumin, Serum 3.2 g/dL (3.2-5.0); Alkaline Phosphatase 154 U/L (45-117); Anion Gap 3 (5-15); BUN 21 mg/dL (7-18); BUN/Creat Ratio 18.4 RATIO (10-20); Calcium,Total 8.8 mg/dL (8.5-10.1); Chloride 105 mmol/L (98-107); Creatinine, Serum 1.14 mg/dL (0.55-1.02); EST Glomerular Filtration Rate 52 mL/min (>60); Est Glom Filt Rate - Afr Amer 62 mL/min (>60); Globulin 3.6 g/dL (2.2-4.2); Glucose 242 mg/dL (74-106); Potassium 3.9 mmol/L (3.5-5.1); Protein, Total 6.8 g/dL (6.4-8.2); Sodium Level 137 mmol/L (136-145)
[2023-07-06 13:14] LABS: Thyroid Stim Hormone (TSH) 0.91 uIU/mL (0.358-3.74)
== END | disposition home or self-care (01) ==
LOC: MTLAB 09:58
PROVIDERS: PCP Nurse Practitioner Family; Referring Provider Internal Medicine Rheumatology; Visit Provider Internal Medicine Rheumatology
DX: M06.4 Inflammatory polyarthropathy (principal); M79.7 Fibromyalgia; M17.0 Bilateral primary osteoarthritis of knee; R76.8 Other specified abnormal immunological findings in serum; E03.9 Hypothyroidism, unspecified
CPT/HCPCS: 36415; 80053; 84443; 85025

== ENCOUNTER → 2023-08-24 | Outpatient (CLI) | payer MEDICARE, SELFPAY ==
[2023-08-24 13:26] LABS: Microalbumin,Random Urine < 5.0 mg/L (NO RANGE EST.)
== END | disposition home or self-care (01) ==
LOC: VSLAB 11:03
PROVIDERS: PCP Nurse Practitioner Family; Visit Provider Nurse Practitioner Family
DX: E11.9 Type 2 diabetes mellitus without complications (principal)
CPT/HCPCS: 82043

== ENCOUNTER → 2023-09-06 | Outpatient (CLI) | payer MEDICARE, SELFPAY ==
[2023-09-06 12:37] LABS: Absolute Lymphocyte Count 1.82 X10^3/uL (0.83-4.51); Absolute Neutrophil Count 2.9 X10^3/uL (2.0-7.7); Basophil% 1.8 % (0-1); Eosinophil# 0.38 X10^3/uL; Eosinophils% 6.8 % (0-5); Hematocrit 40.7 % (37-47); Hemoglobin 13.5 g/dL (12.0-15.0); Lymphocyte # 1.82 X10^3/ul (0.83-4.51); Lymphocyte % 32.7 % (19-41); Mean Corp Hgb Conc 33.2 g/dL (32-36); Mean Corpuscular Hgb 29.3 pg (27.0-32.0); Mean Corpuscular Volume 88.3 fL (81-99); Monocyte# 0.36 X10^3/uL; Monocyte% 6.5 % (0-10); NRBC Flagged by Analyzer 0 % (0-5); Neutrophil # 2.89 X10^3/uL (2.7-7.7); Neutrophil % 51.8 % (47-70); Platelet Count 214 K/mm3 (150-450); RBC Distribution Width CV 12.8 % (11.6-14.6); RBC Distribution Width SD 41.6 fl (35.1-43.9); Red Blood Count 4.61 M/mm3 (4.2-5.4); White Blood Count 5.6 K/mm3 (4.4-11.0)
[2023-09-06 12:52] LABS: AST(SGOT) 23 U/L (15-37); Alanine Aminotransfer ALT/SGPT 32 U/L (13-56); Albumin, Serum 3.4 g/dL (3.2-5.0); Alkaline Phosphatase 154 U/L (45-117); Anion Gap 7 (5-15); BUN 22 mg/dL (7-18); BUN/Creat Ratio 17.6 RATIO (10-20); Chloride 103 mmol/L (98-107); Creatinine, Serum 1.25 mg/dL (0.55-1.02); EST Glomerular Filtration Rate 46 mL/min (>60); Est Glom Filt Rate - Afr Amer 56 mL/min (>60); Globulin 3.4 g/dL (2.2-4.2); Glucose 323 mg/dL (74-106); Potassium 4.1 mmol/L (3.5-5.1); Protein, Total 6.8 g/dL (6.4-8.2); Sodium Level 134 mmol/L (136-145)
== END | disposition home or self-care (01) ==
LOC: LAB.FUTURE 11:44 → VSLAB 11:47
PROVIDERS: PCP Nurse Practitioner Family; Visit Provider Nurse Practitioner Family
DX: M06.4 Inflammatory polyarthropathy (principal); E11.9 Type 2 diabetes mellitus without complications; R76.8 Other specified abnormal immunological findings in serum; M79.7 Fibromyalgia
CPT/HCPCS: 36415; 80053; 85025

== ENCOUNTER → 2023-12-23 | Outpatient (CLI) | payer MEDICARE, SELFPAY ==
[2023-12-23 10:23] LABS: Absolute Lymphocyte Count 1.93 X10^3/uL (0.83-4.51); Absolute Neutrophil Count 3.7 X10^3/uL (2.0-7.7); Basophil# 0.09 X10^3/uL; Basophil% 1.4 % (0-1); Eosinophil# 0.48 X10^3/uL; Eosinophils% 7.2 % (0-5); Lymphocyte # 1.93 X10^3/ul (0.83-4.51); Mean Corp Hgb Conc 31.6 g/dL (32-36); Mean Corpuscular Hgb 29.6 pg (27.0-32.0); Mean Corpuscular Volume 93.8 fL (81-99); Mean Platelet Vol. 11.2 fl (6.2-12.0); Monocyte# 0.47 X10^3/uL; Monocyte% 7.1 % (0-10); NRBC Flagged by Analyzer 0 % (0-5); Neutrophil # 3.67 X10^3/uL (2.7-7.7); Neutrophil % 55.1 % (47-70); Platelet Count 215 K/mm3 (150-450); RBC Distribution Width CV 14.1 % (11.6-14.6); RBC Distribution Width SD 48.3 fl (35.1-43.9); Red Blood Count 4.05 M/mm3 (4.2-5.4); White Blood Count 6.7 K/mm3 (4.4-11.0)
[2023-12-23 11:10] LABS: AST(SGOT) 25 U/L (15-37); Alanine Aminotransfer ALT/SGPT 26 U/L (13-56); Albumin, Serum 3.4 g/dL (3.2-5.0); Alkaline Phosphatase 137 U/L (45-117); Anion Gap 3 (5-15); BUN 32 mg/dL (7-18); BUN/Creat Ratio 19.3 RATIO (10-20); Calcium,Total 8.9 mg/dL (8.5-10.1); Chloride 108 mmol/L (98-107); Creatinine, Serum 1.66 mg/dL (0.55-1.02); EST Glomerular Filtration Rate 33 mL/min (>60); Est Glom Filt Rate - Afr Amer 40 mL/min (>60); Globulin 3.4 g/dL (2.2-4.2); Glucose 165 mg/dL (74-106); Potassium 3.9 mmol/L (3.5-5.1); Protein, Total 6.8 g/dL (6.4-8.2); Sodium Level 138 mmol/L (136-145)
== END | disposition home or self-care (01) ==
LOC: MTLAB 08:11
PROVIDERS: PCP Nurse Practitioner Family; Referring Provider Internal Medicine Rheumatology; Visit Provider Internal Medicine Rheumatology
DX: M06.4 Inflammatory polyarthropathy (principal); R76.8 Other specified abnormal immunological findings in serum; M79.7 Fibromyalgia; M17.0 Bilateral primary osteoarthritis of knee
CPT/HCPCS: 36415; 80053; 85025

== ENCOUNTER → 2024-02-16 | Outpatient (CLI) | payer MEDICARE, SELFPAY ==
[2024-02-16 12:41] LABS: ALB/GLOB Ratio 0.9 RATIO (0.9-2.4); AST(SGOT) 13 U/L (15-37); Alanine Aminotransfer ALT/SGPT 20 U/L (13-56); Albumin, Serum 3.3 g/dL (3.2-5.0); Alkaline Phosphatase 142 U/L (45-117); Anion Gap 1 (5-15); BUN 21 mg/dL (7-18); BUN/Creat Ratio 15.3 RATIO (10-20); Chloride 108 mmol/L (98-107); Creatinine, Serum 1.37 mg/dL (0.55-1.02); EST Glomerular Filtration Rate 42 mL/min (>60); Est Glom Filt Rate - Afr Amer 50 mL/min (>60); Globulin 3.5 g/dL (2.2-4.2); Glucose 147 mg/dL (74-106); Potassium 3.9 mmol/L (3.5-5.1); Protein, Total 6.8 g/dL (6.4-8.2); Sodium Level 140 mmol/L (136-145)
== END | disposition home or self-care (01) ==
PROVIDERS: PCP Nurse Practitioner Family; Visit Provider Nurse Practitioner Family
DX: E11.22 Type 2 diabetes mellitus with diabetic chronic kidney disease (principal); N18.9 Chronic kidney disease, unspecified
CPT/HCPCS: 36415; 80053

== ENCOUNTER → 2024-03-13 | Outpatient (CLI) | payer MEDICARE, SELFPAY ==
[2024-03-13 15:30] LABS: Absolute Lymphocyte Count 1.86 X10^3/uL (0.83-4.51); Absolute Neutrophil Count 3.6 X10^3/uL (2.0-7.7); Basophil# 0.06 X10^3/uL; Eosinophil# 0.38 X10^3/uL; Hematocrit 40.4 % (37-47); Hemoglobin 12.9 g/dL (12.0-15.0); Lymphocyte # 1.86 X10^3/ul (0.83-4.51); Lymphocyte % 29.5 % (19-41); Mean Corp Hgb Conc 31.9 g/dL (32-36); Monocyte# 0.39 X10^3/uL; Monocyte% 6.2 % (0-10); NRBC Flagged by Analyzer 0 % (0-5); Neutrophil % 57.1 % (47-70); Platelet Count 190 K/mm3 (150-450); RBC Distribution Width CV 13.1 % (11.6-14.6); RBC Distribution Width SD 45.1 fl (35.1-43.9); White Blood Count 6.3 K/mm3 (4.4-11.0)
[2024-03-13 15:50] LABS: AST(SGOT) 16 U/L (15-37); Alanine Aminotransfer ALT/SGPT 22 U/L (13-56); Albumin, Serum 3.5 g/dL (3.2-5.0); Alkaline Phosphatase 153 U/L (45-117); Anion Gap 4 (5-15); BUN 18 mg/dL (7-18); BUN/Creat Ratio 13.7 RATIO (10-20); Chloride 107 mmol/L (98-107); Creatinine, Serum 1.31 mg/dL (0.55-1.02); EST Glomerular Filtration Rate 44 mL/min (>60); Est Glom Filt Rate - Afr Amer 53 mL/min (>60); Globulin 3.5 g/dL (2.2-4.2); Glucose 128 mg/dL (74-106); Potassium 3.8 mmol/L (3.5-5.1); Sodium Level 139 mmol/L (136-145)
== END | disposition home or self-care (01) ==
LOC: MTLAB 12:53
PROVIDERS: PCP Nurse Practitioner Family; Referring Provider Internal Medicine Rheumatology; Visit Provider Internal Medicine Rheumatology
DX: M06.4 Inflammatory polyarthropathy (principal); R76.8 Other specified abnormal immunological findings in serum; M79.7 Fibromyalgia; M17.0 Bilateral primary osteoarthritis of knee
CPT/HCPCS: 36415; 80053; 85025

== ENCOUNTER → 2024-06-07 | Outpatient (CLI) | payer MEDICARE, SELFPAY ==
[2024-06-07 13:02] LABS: Absolute Lymphocyte Count 1.53 X10^3/uL (0.83-4.51); Absolute Neutrophil Count 3.2 X10^3/uL (2.0-7.7); Basophil# 0.07 X10^3/uL; Basophil% 1.3 % (0-1); Eosinophil# 0.35 X10^3/uL; Eosinophils% 6.3 % (0-5); Hematocrit 39.2 % (37-47); Hemoglobin 12.7 g/dL (12.0-15.0); Lymphocyte # 1.53 X10^3/ul (0.83-4.51); Lymphocyte % 27.6 % (19-41); Mean Corp Hgb Conc 32.4 g/dL (32-36); Mean Corpuscular Volume 92.5 fL (81-99); Monocyte# 0.36 X10^3/uL; Monocyte% 6.5 % (0-10); NRBC Flagged by Analyzer 0 % (0-5); Neutrophil # 3.22 X10^3/uL (2.7-7.7); Neutrophil % 57.9 % (47-70); Platelet Count 176 K/mm3 (150-450); RBC Distribution Width CV 13.1 % (11.6-14.6); RBC Distribution Width SD 44.3 fl (35.1-43.9); Red Blood Count 4.24 M/mm3 (4.2-5.4); White Blood Count 5.6 K/mm3 (4.4-11.0)
[2024-06-07 13:22] LABS: ALB/GLOB Ratio 1.5 RATIO (0.9-2.4); AST(SGOT) 21 U/L (<=31); Alanine Aminotransfer ALT/SGPT 19 U/L (<=34); Alkaline Phosphatase 126 U/L (35-104); Anion Gap 9 (5-15); BUN 27 mg/dL (4-19); BUN/Creat Ratio 20.1 RATIO (10-20); Calcium,Total 9.3 mg/dL (7.6-11.0); Carbon Dioxide 26.7 mmol/L (21.0-32.0); Chloride 105 mmol/L (98-108); Creatinine, Serum 1.32 mg/dL (0.70-1.20); EST Glomerular Filtration Rate 46 (>60); Globulin 2.7 g/dL (2.2-4.2); Glucose 133 mg/dL (70-99); Potassium 4.6 mmol/L (3.3-5.1); Protein, Total 6.6 g/dL (5.9-8.4); Sodium Level 141 mmol/L (133-145); Total Bilirubin 0.33 mg/dL (0.00-1.30)
== END | disposition home or self-care (01) ==
LOC: MTLAB 10:34
PROVIDERS: PCP Nurse Practitioner Family; Referring Provider Internal Medicine Rheumatology; Visit Provider Internal Medicine Rheumatology
DX: M06.4 Inflammatory polyarthropathy (principal); M79.7 Fibromyalgia; M17.0 Bilateral primary osteoarthritis of knee; R76.8 Other specified abnormal immunological findings in serum
CPT/HCPCS: 36415; 80053; 85025

== ENCOUNTER → 2024-08-27 | Outpatient (CLI) | payer MEDICARE, SELFPAY ==
[2024-08-27 12:25] LABS: Hematocrit 35.4 % (37-47); Hemoglobin 11.4 g/dL (12.0-15.0); Immature Granulocytes Count 0.010 X10^3/uL (0.0-0.0); Mean Corp Hgb Conc 32.2 g/dL (32-36); Mean Corpuscular Volume 92.9 fL (81-99); Mean Platelet Vol. 11.5 fl (6.2-12.0); NRBC Flagged by Analyzer 0 % (0-5); Platelet Count 158 K/mm3 (150-450); RBC Distribution Width CV 13.2 % (11.6-14.6); RBC Distribution Width SD 45.3 fl (35.1-43.9); Red Blood Count 3.81 M/mm3 (4.2-5.4); White Blood Count 5.3 K/mm3 (4.4-11.0)
[2024-08-27 13:03] LABS: AST(SGOT) 21 U/L (<=31); Alanine Aminotransfer ALT/SGPT 18 U/L (<=34); Albumin, Serum 4.0 g/dL (3.4-4.8); Alkaline Phosphatase 117 U/L (35-104); Anion Gap 11 (5-15); BUN 22 mg/dL (4-19); BUN/Creat Ratio 18.7 RATIO (10-20); Calcium,Total 9.0 mg/dL (7.6-11.0); Carbon Dioxide 23.6 mmol/L (21.0-32.0); Chloride 107 mmol/L (98-108); Globulin 2.7 g/dL (2.2-4.2); Glucose 155 mg/dL (70-99); Potassium 4.4 mmol/L (3.3-5.1)
== END | disposition home or self-care (01) ==
LOC: MTLAB 10:47
PROVIDERS: PCP Nurse Practitioner Family; Referring Provider Internal Medicine Rheumatology; Visit Provider Internal Medicine Rheumatology
DX: M06.4 Inflammatory polyarthropathy (principal); M79.7 Fibromyalgia; M17.0 Bilateral primary osteoarthritis of knee; R76.8 Other specified abnormal immunological findings in serum
CPT/HCPCS: 36415; 80053; 85025

== ENCOUNTER → 2024-10-03 | Outpatient (CLI) | payer MEDICARE, SELFPAY ==
[2024-10-03 11:38] LABS: Microalbumin,Random Urine < 12.0 mg/L (<20 mg/L)
[2024-10-03 11:52] LABS: Cholesterol 209 mg/dL (<=200); Low Density Lipoprotein Calc. 120 mg/dL; Triglycerides 87 mg/dL; Very Low Density Lipoprotein 17 mg/dL (5-40); cholesterol:hdl ratio screen 2.94
[2024-10-03 13:30] LABS: Iron 92 ug/dL (50-170); Iron Binding Capacity,Total 250 ug/dL (250-450); Iron Binding Capacity,Unsat 158 ug/dL (228-428)
[2024-10-03 13:33] LABS: Ferritin 821 ng/mL (22-378); Vitamin B12 708 pg/mL (180-914); Vitamin D,25 Hydroxy 22.4 ng/mL (30-100)
--- OUTSIDE RECORDS SUMMARY | 2024-10-03 18:43 | XMS RPT_ITS | CCD ---
Author Organization [facility] Care Team Providers Care Summer Law Clerk Name Role Phone ASHLEY ANNE RAY Unavailable [...] Unavailable HOEPRICH, ASHLEY R Unavailable Unavailable Fast, Taryn A Unavailable Unavailable Marquard, Chad Jefferson Unavailable Unavailable Marquard, Chad Jefferson Unavailable Unavailable LatrellLenore watson Unavailable Unavailable Fast, Taryn A Unavailable Unavailable No, Physician Primary Care Provider Unavailabl e Oleghe, Efewongbe Farida Primary Care Provide r Ran Cochran Unavailable SOREN COREY Attending Unavailable NO, PHYSICIAN Primary Care Unavailable OLEGHE, EFEWONGBE FARIDA Admitting Unav ailable RAN COCHRAN Attending Unavailabl e OLEGHE, EFEWONGBE FARIDA Referring Unav ailable OLEGHE, EFEWONGBE FARIDA Primary Care Unav ailable Oleghe, Efewongbe Farida Primary Care Provide r Ran Cochran Unavailable Janet Zafar CNP Primary Care Provider Dr. Danisha Briggs Primary Care Provider [phone] Dr. Danisha Briggs Referring Provider Errol GILLETTE, MILA Hinojosa Attending Provider Ciesa TALENT MANAGEMENT SPECIALIST, Flavio Primary Care Provider Ciesa TALENT MANAGEMENT SPECIALIST, Flavio Primary Care Provider Dr. Jair Mei Attending Provider [phone] Danisha Briggs Primary Care Provider [phone] Dr. Danisha Briggs Referring Provider [phone] Montiel PRODUCT SAFETY CONSULTANT, PRODUCT SAFETY CONSULTANT-C Ashley Attending Provider [phone] Montiel PRODUCT SAFETY CONSULTANT, PRODUCT SAFETY CONSULTANT-C Ashley Referring Provider [phone] Dr. Dominguez Sandoval Attending Provider [phone] Dr. Prosper Miranda Attending Provider [phone] Ciesa TALENT MANAGEMENT SPECIALIST, Flavio Primary Care Provider [phone] Dr. Danisha Briggs Primary Care Provider [phone] Dr. Danisha Briggs Referring Provider [phone] Montiel PRODUCT SAFETY CONSULTANT, PRODUCT SAFETY CONSULTANT-C Ashley Attending Provider [phone] Dr. Jair Mei Attending Provider [phone] Montiel PRODUCT SAFETY CONSULTANT, PRODUCT SAFETY CONSULTANT-C Ashley Referring Provider [phone] Dr. Dominguez Sandoval Attending Provider [phone] Dr. Prosper Miranda Attending Provider [phone] Danisha Briggs Primary Care Provider [phone] Dr. Danisha Briggs Referring Provider [phone] Montiel PRODUCT SAFETY CONSULTANT, PRODUCT SAFETY CONSULTANT-C Ashley Attending Provider [phone] Dr. Danisha Briggs Primary Care Provider [phone] Dr. Danisha Briggs Referring Provider [phone] Montiel PRODUCT SAFETY CONSULTANT, PRODUCT SAFETY CONSULTANT-C Ashley Attending Provider [phone] Dr. Иван Coburn Attending [facility] e Pending, Provider Primary Care Unavailable Dr. Danisha Briggs Primary Care Provider [phone] Dr. Danisha Briggs Referring Provider [phone] [place] PRODUCT SAFETY CONSULTANT, PRODUCT SAFETY CONSULTANT-C Elsie Attending Provider Ciesa TALENT MANAGEMENT SPECIALIST, Flavio Primary Care Provider GENERIC PROVIDER, NO ASSIGNED PCP Primary Care Unavailable SYDNI DREW Referring Unavaila ble GENERIC PROVIDER, NO ASSIGNED PCP Primary Care Unavailable Generic Provider MD, No Assigned Pcp Primary Car e Provider Unavailable Montiel PRODUCT SAFETY CONSULTANT-C, Ashley Primary Care Provider Montiel PRODUCT SAFETY CONSULTANT-C, Ashley Attending Provider Garo LIU, Dr. Ford Attending Provider Garo LIU, Dr. Ford Referring Provider Chester LIU, Dr. Stout Referring Provider [place] PRODUCT SAFETY CONSULTANT-C, Elsie Attending Provider Montiel PRODUCT SAFETY CONSULTANT-C, Ashley Primary Care Provider Garo LIU, Dr. Ford Attending Provider Garo LIU, Dr. Ford Referring Provider JAY ESPARZA Attending Unavailable SELF Referring Unavailable CIESA, FLAVIO Primary Care Unavailable VERONICA, TRISTIAN Attending Unavailable JAY ESPARZA Referring Unavailable CIESA, FLAVIO Primary Care Unavailable VERONICA, TRISTIAN Attending Unavailable VERONICA, TRISTIAN Referring Unavailable CIESA, FLAVIO Primary Care Unavailable VERONICADAVID ISLVERRINA Attending Unavailable VERONICA, TRISTIAN Referring Unavailable CIESA, FLAVIO Primary Care Unavailable Oscarlanki, Liliana Referring Unavailable Montiel VSC, Sahley Primary Care Unavailable Oscarlanki, Liliana Attending Unavailable Oscarlanki, Liliana Attending Unavailable Montiel VSC, Ashley Primary Care Unavailable Vellanki, Liliana Referring Unavailable Josy PRODUCT SAFETY CONSULTANT, Elsie Attending Unavailable Josy PRODUCT SAFETY CONSULTANT, Elsie Referring Unavailable Montiel VSC, Ashley Primary Care Unavailable Vellanki, Liliana Referring Unavailable Montiel VSC, Ashley Primary Care Unavailable Vellanki, Liliana Attending Unavailable Soham Briggsbe Referring Unavailable [place] PRODUCT SAFETY CONSULTANT, Elsie Attending Unavailable Montiel VSC, Ashley Primary Care Unavailable Montiel VSC, Ashley Primary Care Unavailable Montiel VSC, Ashley Attending Unavailable Vellanki, Liliana Referring Unavailable Montiel VSC, Ashley Primary Care Unavailable Vellanki, Liliana Attending Unavailable Allergies Allergy Classification Reported Allergen(s) Allergy Type Date of Onset Reaction(s) Facility (20 sources) chloroxylenol; Translations: [CHLOROXYLENOL] Drug Allergy 6 Other: See Comments [facility] Repository (20 sources) clindamycin; Translations: [CLINDAMYCIN HCL] Drug Allergy 6 [facility] (20 sources) Penicillins; Translations: [PENICILLINS] Propensity to adverse reactions to drug (disorder) 6 Swelling, Rash, Unknown, Other, Angioedema [facility] Rep[facility] (20 sources) ADHESIVE TAPE-SILICONES; Translations: [ADHESIVE TAPE-SILICONES] Propensity to adverse reactions to drug (disorder) 2 Rash, Unknown, Hives [facility] (5 sources) Adhesive Tape; Translations: [Tape] Propensity to adverse reactions (disorder) 1 AOF, Break out [facility] Repository (4 sources) clindamycin; Translations: [clindamycin] Drug Allergy 6 [facility] Repository (20 sources) Erythromycin; Translations: [ERYTHROMYCIN BASE] Drug Allergy 1 Rash, Unknown [facility] (8 sources) Adhesive Tape; Translations: [adhesive tape] Allergy to substance 2 BREAKS OUT [facility] (1 source) Erythromycin; Translations: [ERYTHROMYCIN] Drug Allergy 1 [facility] Repository (1 source) Erythromycin Drug Allergy 5 [facility] Repository Medications Current Medications Medication Drug Class(es) Dates Sig (Normalized) Sig (Original) acetaminophen 325 mg / oxyCODONE hydrochloride 10 mg oral tablet (20 sources) Opioid Agonist Start: 08-15-2024 End: 10-14-2024 take 1 tablet by mouth four times daily as needed for pain oxyCODONE-acetami nophen (PERCOCET) 10-325 mg tablet Indications: Chronic pain syndrome Take 1 tablet by mouth four times a day as needed for pain for up to 30 days. Patient should start on September 14, 2024. 120 tablet 09/14/2024 10/14/2024 Active Start: 07-12-2024 End: 08-11-2024 take 1 tablet by mouth every six hours as needed for pain oxyCODONE-acetaminophen (PERCOCET) 10-32 5 mg tablet Indications: Lumbar spondylosis Take 1 tablet by mouth every 6 hours as needed for pain for up to 30 days. 120 tablet 07/12/2024 08/11/2024 Active Start: 06-08-2024 End: 07-08-2024 take 1 tablet by mouth every six hours as needed for pain oxyCODONE-acetaminophen (PERCOCET) 10-32 5 mg tablet Indications: Lumbar spondylosis Take 1 tablet by mouth every 6 hours as needed for pain for up to 30 days. Patient should start on June 08, 2024. 120 tablet 06/08/2024 07/08/2024 Active Start: 02-06-2022 End: 03-08-2022 take 1 tablet by mouth every eight hours as needed for pain oxyCODONE-acetaminophen (PERCOCET 10) 10-325 mg tablet Indications: Encounter for long-term (current) use of high-risk medication Take 1 tablet by mouth every 8 hours as needed for pain for up to 30 days. Do not start before February 06, 2022. 90 tablet 0 02/06/2022 02/18/2022 Discontinued Start: 01-06-2022 End: 01-26-2022 take 1 tablet by mouth every eight hours as needed for pain oxyCODONE-acetaminophen (PERCOCET 10) 10-325 mg tablet Indications: Encounter for long-term (current) use of high-risk medication Take 1 tablet by mouth every 8 hours as needed for pain for up to 30 days. 90 tablet 0 01/06/2022 01/26/2022 Discontinued Start: 10-30-2021 End: 12-29-2021 oxyCODONE-acetaminophen (PER COCET 10) 10-325 mg tablet Indications: Encounter for long-term (current) use of high-risk medication Take 1 tablet by mouth every 8 hours as needed for pain for up to 30 days. Do not start before November 29, 2021. 90 tablet 0 11/29/2021 12/29/2021 Active Start: 09-25-2021 End: 10-25-2021 oxyCODONE-acetaminophen (PER COCET 10) 10-325 mg tablet Indications: Encounter for long-term (current) use of high-risk medication Take 1 tablet by mouth every 8 hours as needed for up to 30 days. Do not start before September 25, 2021. 90 tablet 0 09/25/2021 10/22/2021 Discontinued Start: 10-18-2017 End: 01-12-2023 oxyCODONE-acetaminophen (PER COCET 10) 10-325 mg tablet Take by mouth. 0 10/18/2017 01/12/2023 Discontinued Start: 10-18-2017 Oxycodone-Acet aminophen 10-325 mg tablet Active 1 {tbl} PO THREE TIMES A DAY 0 October 18, 2017 12:00am Start: 10-18-2017 take 1 tablet by saqib th three times daily Oxycodone-Acetaminophen Active 1 TABLET PO THREE TIMES A DAY October 17, 2017 11:00pm Start: 04-20-2017 take 1 tablet by saqib th every six hours as needed oxyCODONE-acetaminophen (PERCOCET) 10-32 5 mg per tablet Take 1 tablet by mouth every 6 (six) hours as needed . 0 04/20/2017 Active Start: 04-20-2017 oxyCODONE-acet aminophen (PERCOCET) 10-325 mg per tablet End: 09-22-2021 take 1 tablet by mouth every eight hours as needed oxyCODONE-acetaminophen (PERCOCET 10) 10-325 mg tablet Take 1 tablet by mouth every 8 hours as needed. 0 09/22/2021 Discontinued Comment on above: Take 1 tablet by saqib th every 8 hours as needed. Take 1 tablet by saiqb th every 8 hours as needed for up to 30 days. Do not start before September 25, 2021. Take 1 tablet by saqib th every 8 hours as needed for pain for up to 30 days. Do not start before October 30, 2021. Take 1 tablet by saqib th every 8 hours as needed for pain for up to 30 days. Do not start before November 29, 2021. Take 1 tablet by saqib th every 8 hours as needed for pain for up to 30 days. Do not start before February 06, 2022. Take 1 tablet by saqib th every 8 hours as needed for pain for up to 30 days. Take by mouth. adapalene 0.001 mg/mg topical gel (7 sources) Retinoid Start: 02-18-2022 Adapalene 0.1 % gel Active 1 NMA TOPICAL AT BEDTIME 45 2 February 18, 2022 1:00am Start: 02-18-2022 Adapalene Acti ve 1 APPLIC TOPICAL AT BEDTIME 45 February 18, 2022 12:00am amLODIPine 2.5 mg oral tablet (20 sources) Dihydropyridine Calcium Channel Sherice Start: 07-28-2020 End: 03-10-2022 amLODIPine (NORVASC) 2.5 mg tablet 09/09/2021 Active Start: 03-27-2018 End: 07-28-2020 take 2.5 mg by mouth once daily Amlodipine 5 mg tablet Discontinued 2.5 mg PO DAILY 90 September 19, 2019 2:19pm July 28, 2020 10:15am Start: 03-27-2018 End: 07-28-2020 take 2.5 mg by mouth once daily Amlodipine Discontinued 2.5 MG PO DAILY September 19, 2019 1:19pm July 28, 2020 9:15am Blood-Glucose Meter (Freesty le Lite Meter) kit (11 sources) Start: 05-30-2019 Blood-Glucose Meter (Freestyle Lite Meter) kit Active 0 .ROUTE .MEDSUPPLY 1 May 30, 2019 12:32pm As directed, check blood glucose daily for type 2 DM Start: 05-30-2019 Blood-Glucose Meter (Freestyle Lite Meter) kit Active 0 .ROUTE .MEDSUPPLY 1 0 May 30, 2019 12:00am Type 2 diabetes mellitus with hyperglycemia As directed, check blood glucose daily for type 2 DM Start: 05-30-2019 Blood-Glucose Meter (Freestyle Lite Meter) kit Active 0 .ROUTE .MEDSUPPLY 1 May 29, 2019 11:00pm As directed, check blood glucose daily for type 2 DM Start: 05-30-2019 Blood-Glucose Meter (Freestyle Lite Meter) kit Active 0 .ROUTE .MEDSUPPLY May 30, 2019 12:00am As directed, check blood glucose daily for type 2 DM busPIRone hydrochloride 5 mg oral tablet (20 sources) Start: 05-04-2023 take 1 tablet by mouth every twelve hours busPIRone (BUSPAR) 5 mg tablet Take 1 tablet by mouth every 12 hours. 05/04/2023 Active take 1 tablet by mouth twice oma ly busPIRone (Buspar) 5 mg tablet Take 1 tablet (5 mg) by mouth 2 times a day. Active Comment on above: Take 1 tablet by saqib every 12 hours. cariprazine 1.5 mg oral capsule (20 sources) Atypical Antipsychotic Start: 04-08-19 take 1 capsule by mouth once VRAYLAR 1.5 mg capsule Take 1 capsule by mouth every afternoon. 04/08/2023 Active Comment on above: Take [facility] capsule [facility] afternoon. clobetasol propionate 0.5 mg/ml topical lotion (20 sources) Corticosteroid Start: 05-04-19 Clobetasol Propionate 0.05 % lotn Apply to affected area two times a day as needed. 05/04/2023 Active Comment on above: Apply to affected ar ea two times a day as needed. collagenase 0.25 unt/mg topical ointment (4 sources) Collagen-specific Enzyme Start: 07-17-19 Collagenase Clostridium Histo. (Santyl) 250 unit/gram ointment Active 1 NMA TOPICAL DAILY 20 05July 16, 2022 12:00am apply daily to wound on arm nickel thickness cover moistened gauze, 3 cm x 1 cm Start: 07-16-2022 Collagenase Cl ostridium Histo. (Santyl) 250 unit/gram ointment Active 1 APPLIC TOPICAL DAILY July 15, 2022 11:00pm apply daily to wound on arm nickel thickness cover moistened gauze, 3 cm x 1 cm dapagliflozin 10 mg oral tablet (20 sources) Sodium-Glucose Cotransporter 2 Inhibitor Start: 10-05-2022 FARXIGA 10 mg tablet 10/05/2022 Active Start: 02-18-2022 End: 05-20-2022 FARXIGA 10 mg tablet 023 Active dicyclomine hydrochloride 20 mg oral tablet (4 sources) Anticholinergic Start: 09-11-2023 End: 2023 take 1 tablet by mouth twice daily dicyclomine (Bentyl) 20 mg tablet Indications: Abdominal cramping Take 1 tablet (20 mg) by mouth 2 times a day for 10 days. 20 tablet 09/11/2023 2023 Active empagliflozin 25 mg oral tablet (20 sources) Sodium-Glucose Cotransporter 2 Inhibitor Start: 06-02-2023 JARDIANCE 25 mg tablet 06/02/2023 Active gabapentin 100 mg oral capsule (20 sources) Anti-epileptic Agent Start: 08-24-2023 take 1 capsule by mouth once daily as needed gabapentin (NEURONTIN) 100 mg capsule TAKE 1 CAP BY MOUTH NIGHTLY NEEDED 08/24/2023 Active hydroCHLOROthiazide 12.5 mg / lisinopril 10 mg oral tablet (20 sources) Thiazide Diuretic, Angiotensin Converting Enzyme Inhibitor Start: 08-24-2023 take 10-12.5 mg by mouth once lisinopril-hydro CHLOROthiazide (ZESTORETIC) 10-12.5 mg per tablet Take 1 tablet by mouth every afternoon. 08/24/2023 Active take 1 tablet by saqib th once daily lisinopriL-hydrochlorothiazide 10-12.5 m g tablet Take 1 tablet by mouth once daily. Active hydroxychloroquine sulfate 200 mg oral tablet (20 sources) Antimalarial, Antirheumatic Agent Start: 04-13-2022 hydrOXYchloroQUINE (PLAQUENIL) 200 mg tablet 04/13/2022 Active Start: 06-14-2018 End: 11-24-2021 hydrOXYchloroQUINE (PLAQUENI L) 200 mg tablet 04/13/2022 Active End: 11-24-2021 take 1 tablet by mouth twice daily hydroxychloroquine (Plaquenil) 200 mg tablet Take 1 tablet (200 mg) by mouth 2 times a day. Active Comment on above: Take 200 mg by mouth twice daily. PLAQUENIL TABLET L.Acidoph, Paracasei,B. Lactis (9 sources) Start: 10-28-2017 L.Acidoph, Paracasei,B. Lactis Active 1 EACH PO DAILY October 28, 2017 4:03pm Start: 10-28-2017 L.Acidoph, Par acasei,B. Lactis Active 1 EACH PO DAILY October 27, 2017 11:00pm Start: 10-28-2017 L.Acidoph, Par acasei,B. Lactis Active 1 EACH PO DAILY October 28, 2017 12:00am lactobacillus combo no.11 (Probiotic) 15 billion cell CpSP (2 sources) lactobacillus co mbo no.11 (Probiotic) 15 billion cell CpSP Take by mouth daily . 0 Active leflunomide 20 mg oral tablet (20 sources) Antirheumatic Agent Start: 05-03-19 take 1 tablet by mouth once daily leflunomide (ARAVA) 20 mg tablet Take 20 mg by mouth once daily. 05/02/2022 Active Start: 03-10-2022 End: 06-09-2023 leflunomide (ARAVA) 10 mg ta blet Take 15 mg by mouth once daily. 0 03/10/2022 06/09/2023 Discontinued (Duplicate Entry) Start: 09-11-2021 End: 04-19-2022 leflunomide (ARAVA) 20 mg ta blet Start: 09-03-2020 take 5 mg by mouth once daily Leflunomide Active 5 MG PO DAILY September 02, 2020 11:00pm Start: 08-06-2020 End: 11-24-2021 take 5 mg by mouth once daily Leflunomide 10 mg tablet Active 5 mg PO DAILY September 03, 2020 12:00am Comment on above: 5 mg. Take 15 mg by mouth once daily. Take 20 mg by mouth once daily. levocetirizine dihydrochloride 5 mg oral tablet (20 sources) Histamine-1 Receptor Antagonist Start: 05-21-19 take 1 tablet by mouth once daily in the evening as needed levocetirizine 5 mg tablet TAKE 1 TABLET BY MOUTH EVERY EVENING NEEDED ALLERGY SYMPTOMS 08/16/2022 Active Comment on above: TAKE 1 TABLET BY SAQIB TH EVERY EVENING NEEDED ALLERGY SYMPTOMS levothyroxine sodium 0.025 mg oral tablet (20 sources) l-Thyroxine Start: 10-27-19 take 1 tablet by mouth once levothyroxine (SYNTHROID) 25 mcg tablet Take 1 tablet by mouth every afternoon. 10/26/2022 Active Start: 09-02-2022 take 1 tablet by mouth once le vothyroxine (SYNTHROID) 200 mcg tablet Take 1 tablet by mouth every afternoon. 09/02/2022 Active Start: 03-10-2022 End: 09-20-2022 take 1 tablet by mouth once levothyroxine (SYNTHROID) 25 mcg tablet Take 1 tablet by mouth every afternoon. 10/26/2022 Active Start: 12-10-2021 End: 08-06-2022 Levothyroxine 25 mcg tablet Discontinued 25 ug PO DAILY 90 December 10, 2021 12:00am August 06, 2022 4:02pm take in conjunction to make 225 mcg per day Start: 09-09-2021 End: 04-19-2022 take 1 tablet by mouth once levothyroxine (SYNTHROID) 200 mcg tablet Take 1 tablet by mouth every afternoon. 09/02/2022 Active Start: 07-16-2019 End: 11-24-2021 take 1 tablet by mouth once daily Levothyroxine 175 mcg tablet Discontinued 175 ug PO DAILY 60 2 June 15, 2021 6:30pm September 09, 2021 1:00pm Start: 10-18-2017 End: 11-24-2021 take 1 capsule by mouth once daily Levothyroxine 150 mcg capsule Discontinued 150 ug PO DAILY October 18, 2017 12:00am May 04, 2018 1:05pm Start: 04-27-2017 End: 07-16-2019 take 1 tablet by mouth once daily Levothyroxine 150 mcg tablet Discontinued 150 ug PO DAILY 90 2 June 26, 2019 8:49am July 16, 2019 10:41am Comment on above: Take 150 mcg by mout h once daily. Take 25 mcg by mouth once daily. Take 1 tablet by saqib th every afternoon. lidocaine 25 mg/ml / prilocaine 25 mg/ml topical cream (20 sources) Antiarrhythmic, Amide Local Anesthetic Start: 04-19-2022 End: 05-19-2022 lidocaine-prilocaine (EMLA) 2.5-2.5 % cream Apply to affected area as needed. 30 g 3 04/19/2022 Active Comment on above: Apply to affected ar ea as needed. metFORMIN hydrochloride 1000 mg oral tablet (20 sources) Biguanide Start: 09-06-2023 metFORMIN (GLUCOPHAGE) 1,000 mg tablet 09/06/2023 Active Start: 11-11-2017 End: 07-12-2019 take 1 tablet by mouth once daily in the evening Metformin 500 mg tablet extended release 24 hr Discontinued 500 mg PO EVERY EVENING 60 2 November 11, 2017 12:00am July 12, 2019 3:09pm metroNIDAZOLE 500 mg oral tablet (20 sources) Nitroimidazole Antimicrobial Start: 07-07-2022 take 1 tablet by mouth three times daily metroNIDAZOLE (FLAGYL) 500 mg tablet Take 500 mg by mouth three times a day. 07/07/2022 Active Comment on above: Take 500 mg by mouth three times daily. montelukast 10 mg oral tablet (20 sources) Leukotriene Receptor Antagonist Start: 03-10-2022 take 1 tablet by mouth once daily at bedtime montelukast (SINGULAIR) 10 mg tablet Take 10 mg by mouth daily at bedtime. 03/10/2022 Active Start: 07-29-2021 End: 01-25-2022 take 1 tablet by mouth once daily at bedtime montelukast (SINGULAIR) 10 mg tablet Take 10 mg by mouth daily at bedtime. 03/10/2022 Active Comment on above: Take 10 mg by mouth daily at bedtime. MOUNJARO 10 mg/0.5 mL pen injector (20 sources) Start: 05-04-2023 MOUNJARO 10 mg/0.5 mL pen injector 05/04/2023 Active Start: 05-04-2023 inject 10 mg by subc utaneous injection every week MOUNJARO 10 mg/0.5 mL pen injector inject 10 mg weekly sq 05/04/2023 Active Start: 05-04-2023 inject 10 mg by subc utaneous injection every week MOUNJARO 10 mg/0.5 mL pen injector inject 10 mg weekly sq 0 05/04/2023 Active Comment on above: inject 10 mg weekly sq mupirocin 0.02 mg/mg topical ointment (20 sources) RNA Synthetase Inhibitor Antibacterial Start: mupirocin (BACTROBAN) 2 % ointment Apply to affected area three times a day. 07/07/2022 Active Comment on above: Apply to affected ar ea three times daily. naloxone 4 mg/actuation nasal spray (NARCAN) (7 sources) Start: 5 naloxone 4 mg/actuation nasal spray (NARCAN) Use 1 spray in one nostril as needed for overdose. May repeat every 2 to 3 min in alternating nostrils until medical assistance is available 1 each 06/05/2024 Active omeprazole 20 mg delayed release oral capsule (20 sources) Proton Pump Inhibitor Start: 3 take 1 capsule by mouth once omeprazole (PRILOSEC) 20 mg capsule Take 1 capsule by mouth every afternoon. 02/02/2023 Active Start: 05-20-2022 End: 09-29-2022 take 1 capsule by mouth once daily Omeprazole 20 mg capsule,delayed release(DR/EC) Discontinued 0 .ROUTE .COMPLEX 30 July 20, 2022 8:56am September 29, 2022 4:27pm TAKE 1 CAPSULE BY MOUTH EVERY DAY Comment on above: Take 20 mg by mouth once daily. Take 1 capsule by tx ut every afternoon. polyethylene glycol 3350 65805 mg powder for oral solution (1 source) Osmotic Laxative Start: polyethylene glycol 3350 (MIRALAX) 17 gram/dose powder Dissolve dose in 4 - 8 ounces of liquid and take as directed. 510 g 09/04/2024 Active predniSONE 10 mg oral tablet (20 sources) Start: End: predniSONE (DELTASONE) 10 mg tablet Take 10 mg by mouth. Only prn 06/04/2020 Active Comment on above: Take 10 mg by mouth. Semaglutide (2 sources) Start: Semaglutide (Ozempic) 1 mg/dose (4 mg/3 mL) pen injector Active 1 mg SC EVERY WEEK April 02, 2024 1:00am semaglutide 0.25 mg or 0.5 mg (2 mg/3 mL) pen injector (2 sources) semaglutide 0.25 mg or 0.5 mg (2 mg/3 mL) pen injector Inject 0.5 mg under the skin every 7 days. Active semaglutide 0.25 mg/0.5 mL (0.5 mg/mL) subcutaneous compounded injection (20 sources) semaglutide 0.25 mg/0.5 mL (0.5 mg/mL) subcutaneous compounded injection Inject subcutaneously one time a week. Active tiZANidine 4 mg oral tablet (20 sources) Central alpha-2 Adrenergic Agonist Start: End: take 1 tablet by mouth three times daily tiZANidine (ZANAFLEX) 4 mg tablet Take 1 tablet by mouth three times a day. 90 tablet 09/04/2024 10/04/2024 Active Start: 06-05-2024 End: 07-05-2024 take 1 tablet by mouth three times daily tiZANidine (ZANAFLEX) 4 mg tablet Take 1 tablet by mouth three times a day. 90 tablet 2 06/05/2024 07/05/2024 Active Start: 10-18-2017 End: 11-24-2021 take 1 capsule by mouth three times daily as needed for muscle spasms Tizanidine 4 mg capsule Discontinued 4 mg PO THREE TIMES A DAY as needed for Muscle Spasm October 18, 2017 12:00am July 29, 2021 4:39pm Comment on above: Take 4 mg by mouth t hree times daily as needed. Completed/Discontinued Medications Medication Drug Class(es) Dates Sig (Normalized) Sig (Original) Blood-Glucose Meter (4 sources) Start: 05-30-2019 End: 11-24-2021 Blood-Glucose Meter Blood-Glucose Meter (Freestyle Lite Meter) kit Active 0 .ROUTE .MEDSUPPLY May 30, 2019 11:32am As directed, check blood glucose daily for type 2 DM 0 05/30/2019 11/24/2021 Discontinued Start: 05-30-2019 Blood-Glucose Meter Blood-Glucose Meter (Freestyle Lite Meter) kit Active 0 .ROUTE .MEDSUPPLY May 30, 2019 11:32am As directed, check blood glucose daily for type 2 DM 0 05/30/2019 Active Comment on above: Blood-Glucose Meter (Freestyle Lite Meter) kit Active 0 .ROUTE .MEDSUPPLY May 30, 2019 11:32am As directed, check blood glucose daily for type 2 DM cholecalciferol 1.25 mg oral capsule (11 sources) Vitamin D Start: 018 End: 019 take 1 capsule by mouth every week Cholecalciferol (Vitamin D3) 50,000 unit capsule Discontinued 81742 U PO EVERY WEEK October 18, 2017 12:00am March 21, 2018 3:09pm Compress.Stocking,Knee ,Reg,Lrg (9 sources) Start: 020 End: 021 Compress.Stocking,Knee ,Reg,Lrg Discontinued 0 .ROUTE .MEDSUPPLY 2 August 08, 2019 1:29pm June 04, 2020 9:55am wear daily for venous insufficiency 20-30 mmHg Start: 08-08-2019 End: 06-04-2020 Compress.Stocking,Knee,Reg,L rg Discontinued 0 .ROUTE .MEDSUPPLY 2 August 07, 2019 11:00pm June 04, 2020 8:55am wear daily for venous insufficiency 20-30 mmHg Start: 08-08-2019 End: 06-04-2020 Compress.Stocking,Knee,Reg,L rg Discontinued 0 .ROUTE .MEDSUPPLY 2 August 08, 2019 12:00am June 04, 2020 9:55am wear daily for venous insufficiency 20-30 mmHg Compress.Stocking,Knee,Reg,L rg misc (2 sources) Start: 08-08-2019 End: 06-04-2020 Compress.Stocking,Knee,Reg,L rg misc Discontinued 0 .ROUTE .MEDSUPPLY 2 1 August 08, 2019 12:00am June 04, 2020 9:55am Venous insufficiency (chronic) (peripheral) wear daily for venous insufficiency 20-30 mmHg Start: 08-08-2019 End: 06-04-2020 Compress.Stocking,Knee,Reg,L rg misc Discontinued 0 .ROUTE .MEDSUPPLY 2 August 08, 2019 12:00am June 04, 2020 9:55am wear daily for venous insufficiency 20-30 mmHg doxycycline monohydrate 100 mg oral tablet (12 sources) Tetracycline-class Drug Start: 01-11-2022 End: 09-20-2022 doxycycline monohydrate 100 mg tablet DULoxetine 60 mg delayed release oral capsule (20 sources) Serotonin and Norepinephrine Reuptake Inhibitor Start: 10-18-2017 End: 11-24-2021 DULoxetine (CYMBALTA) 60 mg capsule Take 30 mg by mouth. 0 10/18/2017 11/24/2021 Discontinued Start: 03-25-2017 End: 10-04-2024 take 1 capsule by mouth once daily in the morning DULoxetine (CYMBALTA) 30 mg capsule Indications: Chronic pain syndrome Take 1 capsule by mouth once daily. In am 30 capsule 08/23/2024 09/04/2024 Discontinued Start: 03-25-2017 End: 10-04-2024 take 1 capsule by mouth once daily at bedtime DULoxetine (CYMBALTA) 60 mg capsule Take 1 capsule by mouth daily at bedtime. 30 capsule 08/23/2024 09/04/2024 Discontinued Start: 05-02-2012 End: 09-22-2021 DULoxetine (CYMBALTA) 20 mg capsule Take 30 mg by mouth once daily. In am 0 05/02/2012 09/22/2021 Discontinued End: 09-22-2021 take 60 mg by mouth once daily at bedtime DULOXETINE HCL (CYMBALTA ORAL) Take 60 mg by mouth once daily. At hs 0 09/22/2021 Discontinued Comment on above: Take 30 mg by mouth once daily. In am Take 60 mg by mouth once daily. At hs Take 1 capsule by mo uth once daily. In am Take 1 capsule by mo uth once daily. At hs Take 60 mg by mouth. Take 1 capsule by mo uth daily at bedtime. Take 30 mg by mouth. Take 60 mg by mouth daily at bedtime. ergocalciferol 0.0625 mg oral capsule (11 sources) Provitamin D2 Compound Start: 10-18-2017 End: 10-18-2017 Ergocalciferol (Vitamin D2) (Ergocal) 2,500 unit capsule Discontinued 2500 U PO DAILY October 18, 2017 12:00am October 18, 2017 2:58pm folic acid 1 mg oral tablet (4 sources) Start: 01-10-2019 End: 11-24-2021 folic acid 1 mg tablet FOLIC ACID TABLET 0 01/10/2019 11/24/2021 Discontinued Comment on above: FOLIC ACID TABLET hydrocortisone 25 mg/ml topical cream (15 sources) Corticosteroid Start: 09-09-2020 End: 11-24-2021 hydrocortisone 2.5 % cream Apply to affected area. 0 09/09/2020 11/24/2021 Discontinued Start: 09-09-2020 Hydrocortisone 2.5 % cream Active 1 NMA TOPICAL TWICE A DAY as needed for rash 30 September 09, 2020 12:00am Comment on above: Apply to affected ar ea. L.ACIDOPH, PARACASEI,B. LACTIS ORAL (4 sources) Start: 10-28-2017 End: 11-24-2021 L.ACIDOPH, PARACASEI,B. LACTIS ORAL Take by mouth. 0 10/28/2017 11/24/2021 Discontinued Start: 10-28-2017 L.ACIDOPH, PAR ACASEI,B. LACTIS ORAL Take by mouth. 0 10/28/2017 Active Comment on above: Take by mouth. L.Acidoph,Paracasei,B. Animalis 1 EACH capsule (2 sources) Start: 8 End: 5 take 1 capsule by mouth once daily L.Acidoph,Paracasei,B. Animalis 1 EACH capsule Discontinued 1 NMA PO DAILY October 28, 2017 12:00am April 02, 2024 10:29am Lactobacillus Combination No.4 (Probiotic) 3 billion cell capsule (10 sources) Start: 2 End: 5 take 3 capsules by mouth once daily Lactobacillus Combination No.4 (Probiotic) 3 billion cell capsule Discontinued 3000 NMA PO DAILY July 29, 2021 12:00am April 02, 2024 10:29am administer with a meal Start: 07-29-2021 take 3 capsules by m outh once daily Lactobacillus Combination No.4 (Probiotic) 3 billion cell capsule Active 3000 MMU CELLS PO DAILY July 28, 2021 11:00pm administer with a meal Start: 07-29-2021 take 3 capsules by m outh once daily Lactobacillus Combination No.4 (Probiotic) 3 billion cell capsule Active 3000 MMU CELLS PO DAILY July 29, 2021 12:00am administer with a meal LACTOBACILLUS RHAMNOSUS GG (CULTURELLE ORAL) (9 sources) End: 11-24-2021 LACTOBACILLUS RHAMNOSUS GG (CULTURELLE ORAL) Take by mouth once daily. 0 11/24/2021 Discontinued LACTOBACILLUS RH AMNOSUS GG (CULTURELLE ORAL) Take by mouth once daily. 0 Active Comment on above: Take by mouth once d aily. loratadine 10 mg oral tablet (20 sources) Start: 11-22-2017 End: 06-09-2023 take 1 tablet by mouth once daily Loratadine (Claritin) 10 mg tablet Discontinued 10 mg PO DAILY November 22, 2017 12:00am May 20, 2022 10:35am End: 04-19-2022 loratadine 10 mg dissolvable tablet Take 10 mg by mouth. 0 04/19/2022 Discontinued Comment on above: Take 10 mg by mouth. Take by mouth. olmesartan medoxomil 20 mg oral tablet (13 sources) Angiotensin 2 Receptor Sherice Start: 8 End: 1 take 1 tablet by mouth once daily Olmesartan 20 MG tablet Discontinued 20 mg PO DAILY October 28, 2017 12:00am June 04, 2020 9:57am oxyCODONE hydrochloride 15 mg oral tablet (20 sources) Opioid Agonist Start: End: take 1 tablet by mouth every eight hours as needed for pain oxyCODONE (ROXICODONE) 15 mg immediate release tablet Indications: Lumbar spondylosis Take 1 tablet by mouth every 8 hours as needed for pain for up to 30 days. 90 tablet 05/10/2024 06/05/2024 Discontinued (Course of therapy completed) Start: 09-10-2023 End: 04-10-2024 take 1 tablet by mouth three times daily as needed for pain oxyCODONE (ROXICODONE) 15 mg immediate release tablet Indications: Chronic pain syndrome Take 1 tablet by mouth three times a day as needed for pain for up to 23 days. To complete the full script of 90 tablets/month 70 tablet 03/13/2024 04/10/2024 Discontinued Start: 03-14-2023 End: 09-07-2023 take 1 tablet by mouth three times daily as needed for pain oxyCODONE (ROXICODONE) 15 mg immediate release tablet Indications: Chronic pain syndrome Take 1 tablet by mouth three times a day as needed for pain for up to 30 days. 90 tablet 0 08/08/2023 09/07/2023 Discontinued Start: 04-14-2022 End: 02-11-2023 take 1 tablet by mouth three times daily as needed for pain oxyCODONE (ROXICODONE) 15 mg immediate release tablet Indications: Chronic pain syndrome Take 1 tablet by mouth three times a day as needed for pain for up to 30 days. 90 tablet 0 01/12/2023 02/11/2023 Active Start: 03-12-2022 End: 04-11-2022 take 1 tablet by mouth three times daily as needed for pain oxyCODONE (ROXICODONE) 15 mg immediate release tablet Indications: Chronic pain syndrome Take 1 tablet by mouth three times daily as needed for pain for up to 30 days. Do not start before March 12, 2022. 90 tablet 0 03/12/2022 04/11/2022 Active Start: 03-12-2022 End: 03-10-2022 take 1 tablet by mouth three times daily as needed for pain oxyCODONE (ROXICODONE) 15 mg immediate release tablet Indications: Chronic pain syndrome Take 1 tablet by mouth three times daily as needed for pain for up to 30 days. Do not start before March 12, 2022. 90 tablet 0 03/12/2022 03/10/2022 Discontinued take 1 tablet by saqib th three times daily as needed for pain oxyCODONE (Roxicodone) 15 mg immediate release tablet Take 1 tablet (15 mg) by mouth 3 times a day. PRN PAIN UP TO 30 DAYS Active Comment on above: Take 1 tablet by saqib th three times daily as needed for pain for up to 30 days. Do not start before March 12, 2022. Take 1 tablet by saqib th three times daily as needed for pain for up to 30 days. Do not start before April 14, 2022. Take 1 tablet by saqib th three times daily as needed for pain for up to 30 days. Do not start before May 14, 2022. Take 1 tablet by saqib th three times daily as needed for pain for up to 30 days. Do not start before June 13, 2022. Take 1 tablet by saqib th three times daily as needed for pain for up to 30 days. Take 1 tablet by saqib th three times daily as needed for pain for up to 30 days. Do not start before August 12, 2022. Take 1 tablet by saqib th three times daily as needed for pain for up to 30 days. Do not start before September 11, 2022. Take 1 tablet by saqib th three times daily as needed for pain for up to 30 days. Do not start before October 13, 2022. Take 1 tablet by saqib th three times daily as needed for pain for up to 30 days. Do not start before November 13, 2022. Take 1 tablet by saqib th three times a day as needed for pain for up to 30 days. Do not start before December 13, 2022. Take 1 tablet by saqib th three times a day as needed for pain for up to 30 days. OZEMPIC 1 mg/dose (4 mg/3 mL) pen injector (20 sources) Start: 08-26-2021 End: 06-09-2023 OZEMPIC 1 mg/dose (4 mg/3 mL) pen injector Start: 08-26-2021 OZEMPIC 1 mg/d ose (4 mg/3 mL) pen injector 0.25 mg, 0.5 mg dose 1.5 ml semaglutide 1.34 mg/ml pen injector (20 sources) Start: 07-29-2021 End: 02-18-2022 Semaglutide (Ozempic) 0.25 m g or 0.5 mg(2 mg/1.5 mL) pen injector Discontinued 1 mg SC EVERY WEEK 10.4 90 3 July 29, 2021 4:53pm February 18, 2022 11:52am Start: 05-08-2021 End: 07-29-2021 Semaglutide (Ozempic) 0.25 m g or 0.5 mg(2 mg/1.5 mL) pen injector Discontinued 0.5 mg SC EVERY WEEK 5.2 90 1 May 08, 2021 9:25am July 29, 2021 5:00pm Start: 06-04-2020 End: 05-08-2021 Semaglutide (Ozempic) 0.25 m g or 0.5 mg(2 mg/1.5 mL) pen injector Discontinued 0.25 mg SC EVERY WEEK 1.5 0 1 December 25, 2020 11:05am May 08, 2021 9:26am 1000 ml sodium chloride 9 mg /ml injection (1 source) Start: 09-11-2023 End: 09-11-2023 1,000 mL, intravenous, at 99 9 mL/hr, Administer over 1 Hours, Once, On 09/11/23 at 1355, For 1 dose Tirzepatide (Mounjaro) 5 mg/ 0.5 mL pen injector (12 sources) Start: 05-20-2022 End: 04-02-2024 Tirzepatide (Mounjaro) 5 mg/ 0.5 mL pen injector Discontinued 5 mg SC EVERY WEEK 2 May 20, 2022 10:30am April 02, 2024 10:29am Start: 05-20-2022 End: 04-02-2024 Tirzepatide (Mounjaro) 5 mg/ 0.5 mL pen injector Discontinued 5 mg SC EVERY WEEK 2 May 20, 2022 10:30am April 02, 2024 10:29am Start: 05-20-2022 Tirzepatide (M ounjaro) 5 mg/0.5 mL pen injector Active 5 MG SC EVERY WEEK 2 May 20, 2022 9:30am Start: 05-20-2022 Tirzepatide (M ounjaro) 5 mg/0.5 mL pen injector Active 5 MG SC EVERY WEEK 2 May 20, 2022 10:30am Start: 02-18-2022 End: 05-20-2022 Tirzepatide (Mounjaro) 5 mg/ 0.5 mL pen injector Discontinued 5 mg SC EVERY WEEK 2 3 February 18, 2022 1:00am May 20, 2022 10:30am Start: 02-18-2022 End: 05-20-2022 Tirzepatide (Mounjaro) 5 mg/ 0.5 mL pen injector Discontinued 5 mg SC EVERY WEEK 2 February 18, 2022 1:00am May 20, 2022 10:30am Start: 02-18-2022 End: 05-20-2022 Tirzepatide (Mounjaro) 5 mg/ 0.5 mL pen injector Discontinued 5 MG SC EVERY WEEK 2 February 18, 2022 12:00am May 20, 2022 9:30am Start: 02-18-2022 End: 05-20-2022 Tirzepatide (Mounjaro) 5 mg/ 0.5 mL pen injector Discontinued 5 MG SC EVERY WEEK 2 February 18, 2022 1:00am May 20, 2022 10:30am Start: 02-18-2022 Tirzepatide (M ounjaro) 5 mg/0.5 mL pen injector Active 5 MG SC EVERY WEEK 2 February 18, 2022 12:00am topiramate 100 mg oral tablet (9 sources) End: 11-24-2021 take 1 tablet by mouth twice daily topiramate (TOPAMAX) 100 mg tablet Take 100 mg by mouth twice daily. 0 11/24/2021 Discontinued Comment on above: Take 100 mg by mouth twice daily. 1 ml triamcinolone acetonide 40 mg/ml injection (1 source) Corticosteroid Start: 04-26-2018 End: 04-26-2018 triamcinolone acetonide (KENALOG-40) injection 40 mg valsartan (9 sources) Angiotensin 2 Receptor Sherice End: 11-24-2021 take 20 mg by mouth once daily VALSARTAN ORAL Take 20 mg by mouth once daily. 0 11/24/2021 Discontinued take 20 mg by mouth once daily V ALSARTAN ORAL Take 20 mg by mouth once daily. 0 Active Comment on above: Take 20 mg by mouth once daily. Problems Active Problems Problem Classification Problem Date Documented Date Episodic/Chronic Abdominal pain (3 sources) Unspecified abdominal pain; Translations: [Finding of sensation of abdomen] Onset: 09-11-2023 Episodic Acute and unspecified renal failure (20 sources) Renal failure syndrome; Translations: [Unspecified kidney failure] Onset: 10-02-2021 10-02-2021 Chronic Anxiety disorders (20 sources) Anxiety state; Translations: [Generalized anxiety disorder] Onset: 06-15-2013 10-02-2021 Chronic Blindness and vision defects (11 sources) Disorder of vision; Translations: [Unspecified visual loss] 10-18-2017 Chronic Chronic kidney disease (20 sources) Chronic kidney disease stage 3; Translations: [Chronic kidney disease, stage 3 (moderate)] Onset: 02-04-2017 02-04-2017 Chronic Diabetes mellitus without complication (20 sources) Type 2 diabetes mellitus; Translations: [Type 2 diabetes mellitus without complications] Onset: 07-29-2021 Chronic Disorders of lipid metabolism (20 sources) Hypercholesterolemia; Translations: [Pure hypercholesterolemia, unspecified] Onset: 10-02-2021 10-02-2021 Chronic Essential hypertension (20 sources) Hypertensive disorder; Translations: [Essential (primary) hypertension] Onset: 08-28-2014 08-28-2014 Chronic Heart valve disorders (20 sources) Mitral valve prolapse; Translations: [Nonrheumatic mitral (valve) prolapse] Onset: 10-02-2021 10-02-2021 Chronic Nutritional deficiencies (20 sources) Vitamin D deficiency; Translations: [Vitamin D deficiency, unspecified] Onset: 10-02-2021 10-02-2021 Chronic Open wounds of extremities (4 sources) Dog bite of forearm; Translations: [Open bite of unspecified forearm, initial encounter] 03-21-2023 Episodic Osteoarthritis (20 sources) Unilateral primary osteoarthritis, left knee; Translations: [Primary gonarthrosis, bilateral] Onset: 02-04-2017 02-04-2017 Chronic Other connective tissue disease (5 sources) Pain in calf; Translations: [Pain in right lower leg] 11-20-2021 Episodic Other connective tissue disease (3 sources) Pain in right lower leg; Translations: [Pain in limb] Episodic Other connective tissue disease (2 sources) Fibromyalgia; Translations: [Myalgia and myositis, unspecified] Episodic Other diseases of veins and lymphatics (1 source) Peripheral venous insufficiency; Translations: [Venous (peripheral) insufficiency] Episodic Other diseases of veins and lymphatics (11 sources) Venous insufficiency of leg; Translations: [Venous insufficiency (chronic) (peripheral)] 08-08-2019 Episodic Other liver diseases (20 sources) Steatosis of liver; Translations: [Fatty (change of) liver, not elsewhere classified] Onset: 02-04-2017 02-04-2017 Chronic Other nervous system disorders (9 sources) Chronic pain; Translations: [Other chronic pain] Onset: 02-04-2017 02-04-2017 Chronic Other nervous system disorders (20 sources) Chronic pain syndrome; Translations: [Chronic pain syndrome] Onset: 02-04-2017 Chronic Other nervous system disorders (3 sources) Carpal tunnel syndrome of right wrist; Translations: [Carpal tunnel syndrome, right upper limb] Chronic Other nervous system disorders (2 sources) Other chronic pain; Translations: [Chronic pain of left knee] Onset: 12-07-2023 Chronic Other nervous system disorders (1 source) Chronic pain syndrome; Translations: [Chronic pain syndrome] Onset: 05-24-2022 Chronic Other non-traumatic joint disorders (2 sources) Pain in left knee; Translations: [Pain in joint, lower leg] Onset: 09-04-2024 09-04-2024 Episodic Other nutritional; endocrine; and metabolic disorders (3 sources) Body mass index 40+ - severely obese; Translations: [Morbid obesity with BMI of 60.0-69.9, adult (HCC)] Onset: 08-22-2019 08-22-2019 Chronic Other nutritional; endocrine; and metabolic disorders (20 sources) Obesity; Translations: [Obesity, unspecified] Onset: 04-14-2010 04-14-2010 Chronic Other nutritional; endocrine; and metabolic disorders (12 sources) Severe obesity; Translations: [Morbid (severe) obesity due to excess calories] 09-28-2019 Chronic Comment on above: BMI 61.4 Other nutritional; endocrine; and metabolic disorders (20 sources) Morbid obesity; Translations: [Morbid (severe) obesity due to excess calories] Onset: 03-16-2023 Chronic Other nutritional; endocrine; and metabolic disorders (5 sources) Morbid (severe) obesity due to excess calories; Translations: [Obesity, unspecified] Onset: 03-16-2023 Chronic Other skin disorders (4 sources) Acne vulgaris; Translations: [Other acne] Episodic Other skin disorders (3 sources) Hidradenitis suppurativa; Translations: [Hidradenitis suppurativa] 04-02-2024 Episodic Comment on above: enc derm consult Other upper respiratory disease (20 sources) Seasonal allergy; Translations: [Other seasonal allergic rhinitis] Onset: 10-02-2021 10-02-2021 Chronic Other upper respiratory disease (20 sources) Allergic rhinitis; Translations: [Allergic rhinitis, unspecified] Onset: 11-24-2021 11-24-2021 Chronic Other upper respiratory disease (3 sources) Allergic rhinitis, unspecified; Translations: [Allergic rhinitis, cause unspecified] Chronic Other upper respiratory infections (20 sources) Sinusitis; Translations: [Chronic sinusitis, unspecified] Onset: 10-02-2021 10-02-2021 Chronic Other upper respiratory infections (7 sources) Upper respiratory infection; Translations: [Acute upper respiratory infection, unspecified] 12-02-2017 Episodic Residual codes; unclassified (20 sources) Obstructive sleep apnea syndrome; Translations: [Obstructive sleep apnea (adult) (pediatric)] Onset: 10-02-2021 10-02-2021 Chronic Comment on above: AHI 6.3 Residual codes; unclassified (20 sources) Presence of other specified functional implants; Translations: [Other organ or tissue replaced by other means] Onset: 03-02-2017 10-02-2021 Chronic Rheumatoid arthritis and related disease (20 sources) Inflammatory polyarthropathy; Translations: [Inflammatory polyarthropathy] Onset: 07-15-2021 11-24-2021 Chronic Spondylosis; intervertebral disc disorders; other back problems (20 sources) Postlaminectomy syndrome, not elsewhere classified; Translations: [Degeneration of lumbar intervertebral disc] Onset: 12-09-2016 02-04-2017 Chronic Syncope (3 sources) Syncope and collapse; Translations: [Vasovagal syncope] Onset: 09-11-2023 Episodic Thyroid disorders (20 sources) Hypothyroidism; Translations: [Hypothyroidism, unspecified] Onset: 04-14-2010 02-04-2017 Chronic Unclassified (1 source) Unknown / UNK(Unknown) Onset: 12-09-2016 Unclassified (1 source) Chronic pain of left knee 09-04-2024 Past or Other Problems Problem Classification Problem Date Documented Date Episodic/Chronic Acquired foot deformities (20 sources) Right foot drop; Translations: [Foot drop, right foot] Onset: 03-05-2015 10-02-2021 Episodic Allergic reactions (20 sources) Inflammatory dermatosis; Translations: [Dermatitis, unspecified] Onset: 10-02-2021 10-02-2021 Episodic Blindness and vision defects (20 [...] (20 sources) Patient encounter status; Translations: [Other exterminator (current) drug therapy] Onset: 03-24-2016 Episodic Other aftercare (20 sources) Taking high risk medication; Translations: [Other long-term (current) drug therapy] Onset: 04-19-2022 Episodic Other aftercare (20 sources) Long-term current use of drug therapy; Translations: [Other exterminator (current) drug therapy] Onset: 03-24-2016 05-24-2022 Episodic Other aftercare (1 source) Other long-term (current) drug therapy; Translations: [High risk medication use] Onset: 04-19-2022 Episodic Other connective tissue disease (20 sources) Fibromyalgia; Translations: [Fibromyalgia] Onset: 11-13-2011 02-04-2017 Episodic Other connective tissue disease (20 sources) Foot pain; Translations: [Pain in right foot] Onset: 10-02-2021 10-02-2021 Episodic Other connective tissue disease (20 sources) Fibromyositis; Translations: [Fibromyalgia] Onset: 03-02-2017 10-02-2021 Episodic Other connective tissue disease (20 sources) Pain of right lower leg; Translations: [Pain in right lower leg] Onset: 11-20-2021 11-24-2021 Episodic Other connective tissue disease (20 sources) Myofascial pain syndrome; Translations: [Myalgia, other site] Onset: 05-24-2022 Episodic Other screening for suspected conditions (not mental disorders or infectious disease) (1 source) Encounter for other screening for malignant neoplasm of breast; Translations: [Encounter for other screening for malignant neoplasm of breast] Onset: 04-02-2024 Episodic Other skin disorders (20 sources) Cystic acne; Translations: [Acne vulgaris] Onset: 04-19-2022 02-18-2022 Episodic Residual codes; unclassified (3 sources) Edema [...] of thyroid, unspecified] Onset: 04-14-2010 11-24-2021 Episodic Unclassified (9 sources) history medtronic implant back 09-16-2021 Comment on above: 02/04/17 Unclassified (9 sources) history thymus gland removed 09-16-2021 Results Test Name Value Interpretation Reference Range Facility [facility] 09-04-2024 [facility] Office Visit ([facility] ) TARYN SELF ([id number]) 1960 F Date Time Provider Department 09/04/24 9:30 AM TRISTIAN MARTIN During your visit today, we recorded the following information about you: Pulse Respiration Blood pressure Weight 65/minute 16/minute 131/73 143.6 kg Height 1.626 m Tristian Martin PA-C 09/04/2024 9:46 AM Signed PATIENT: Taryn Self : 1960 DATE OF SERVICE: 09/04/2024 REFERRING PRACTITIONER: Tristian Martin PA-C PRIMARY CARE PROVIDER: Janet Zafar CNP CHIEF COMPLAINT: Patient presents with: Back Pain: Low Pain: Knee- left HISTORY OF PRESENT ILLNESS: Taryn Self is a 63 year old year old female who presents to the clinic today with chief complaint(s) as above. Following up for: chronic pain, low back pain, leg pain Response to treatment recommendations: Pt is prescribed Percocet, Cymbalta and Zanaflex. Medications help reduce pain to tolerable. She denies side effects aside from constipation Current primary concern/description: left knee pain/shooting, intermittent Pain Level: 3 /10 Better with: medication, reposition, rest Worse with: standing, walking Numbness/Tingling: [] Yes [x] No Bladder/bowel fxn change: [] Yes [x] No --- Review of Systems HENT: Negative. Eyes: Negative. Cardiovascular: Positive for leg swelling. Respiratory: Negative. Endocrine: Negative. Skin: Negative. Musculoskeletal: Positive for arthritis, back pain, joint pain, myalgias and stiffness. Gastrointestinal: Positive for constipation. Genitourinary: Negative. Neurological: Negative. Psychiatric/Behavioral: The patient has insomnia. 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 In am DULoxetine (CYMBALTA) 60 mg capsule Take 1 capsule by mouth daily at bedtime. oxyCODONE-acetaminophen (PERCOCET) 10-325 mg tablet Take 1 tablet by mouth four times a day as needed for pain for up to 30 days. naloxone 4 mg/actuation nasal spray (NARCAN) Use 1 spray in one nostril as needed for overdose. May repeat every 2 to 3 min in alternating nostrils until medical assistance is available semaglutide 0.25 mg/0.5 mL (0.5 mg/mL) subcutaneous compounded injection Inject subcutaneously one time a week. metFORMIN (GLUCOPHAGE) 1,000 mg tablet lisinopril-hydroCHLOROthiaz mely (ZESTORETIC) 10-12.5 mg per tablet Take 1 tablet by mouth every afternoon. gabapentin (NEURONTIN) 100 mg capsule TAKE 1 CAP BY MOUTH NIGHTLY NEEDED busPIRone (BUSPAR) 5 mg tablet Take 1 tablet by mouth every 12 hours. MOUNJARO 10 mg/0.5 mL pen injector VRAYLAR 1.5 mg capsule Take 1 capsule by mouth every afternoon. JARDIANCE 25 mg tablet Clobetasol Propionate 0.05 % lotn Apply to affected area two times a day as needed. omeprazole (PRILOSEC) 20 mg capsule Take 1 capsule by mouth every afternoon. FARXIGA 10 mg tablet levothyroxine (SYNTHROID) 25 mcg tablet Take 1 tablet by mouth every afternoon. levocetirizine 5 mg tablet TAKE 1 TABLET BY MOUTH EVERY EVENING NEEDED ALLERGY SYMPTOMS levothyroxine (SYNTHROID) 200 mcg tablet Take 1 tablet by mouth every afternoon. metroNIDAZOLE (FLAGYL) 500 mg tablet Take 500 mg by mouth three times a day. mupirocin (BACTROBAN) 2 % ointment Apply to affected area three times a day. leflunomide (ARAVA) 20 mg tablet Take 20 mg by mouth once daily. hydrOXYchloroQUINE (PLAQUENIL) 200 mg tablet montelukast (SINGULAIR) 10 mg tablet Take 10 mg by mouth daily at bedtime. predniSONE (DELTASONE) 10 mg tablet Take 10 mg by (more content not included)... Normal [facility] Absolute lymphocyte countOrd ered By: Liliana Wyman on 08-27-2024 Lymphocytes Auto (Unsp spec) [#/Vol] 0.97 10*3/uL 0.83-4.51 [facility] Absolute neutrophil countOrd ered By: Liliana Wmyan on 08-27-2024 Neutrophils (Bld) [#/Vol] 3.8 10*3/uL 2.0-7.7 [facility] Anion gap in Serum or Plasma Ordered By: Liliana Wyman on 08-27-2024 Anion gap [Moles/Vol] 11 mmol/L 5-15 [facility] Automated lymphocyte count a s percentage of total leukocytesOrdered By: Liliana Wyman on 08-27-2024 Lymphocytes/100 WBC Auto (Unsp spec) 18.2 % Low 19-41 [facility] BUN/creatinine ratioOrdered By: Liliana Wyman on 08-27-2024 Urea nitrogen/Creatinine [Mass ratio] 18.7 mg/mg 10-20 [facility] Basophil percentageOrdered B y: Liliana Wyman on 08-27-2024 Basophils/100 WBC (Bld) 1.3 % High 0-1 [facility] Bilirubin, totalOrdered By: Liliana Wyman on 08-27-2024 Bilirubin [Mass/Vol] 0.33 mg/dL 0.00-1.30 [facility] CBC W/Diff, Automatedon Absolute Lymph 0.97 X10 3/uL Normal 0.83-4.51 [facility] Comment on above: Performed By: #### L 500.4050, L100.0100 #### [facility] [address] [place], [address] Absolute Neut 3.8 X10 3/uL Normal 2.0-7.7 [facility] Comment on above: Performed By: #### L 500.4050, L100.0100 #### [facility] [address] [place], [address] Basophils/100 WBC (Bld) 1.3 % High 0-1 [facility] Comment on above: Performed By: #### L 500.4050, L100.0100 #### [facility] [address] [place], [address] Eosinophils/100 WBC (Bld) 2.8 % Normal 0-5 [facility] Comment on above: Performed By: #### L 500.4050, L100.0100 #### [facility] [address] [place], [address] Erythrocyte distribution width (RBC) [Ratio] 13.2 % Normal 11.6-14.6 [facility] Comment on above: Performed By: #### L 500.4050, L100.0100 #### [facility] [address] [place], [address] Hematocrit (Bld) [Volume fraction] 35.4 % Low 37-47 [facility] Comment on above: Performed By: #### L 500.4050, L100.0100 #### [facility] [address] [place], [address] Hemoglobin (Bld) [Mass/Vol] 11.4 g/dL Low 12.0-15.0 [facility] Comment on above: Performed By: #### L 500.4050, L100.0100 #### [facility] [address] [place], [address] IG% 0.200 Normal 0.0-0.9 [facility] Comment on above: Result Comment: IG% - Immature Granulocytes (promyelocytes, myelocytes and metamyelocytes) > 1% indicates that a LEFT SHIFT is Present. Performed By: #### L 500.4050, L100.0100 #### [facility] [address] [place], [address] Lymphocytes/100 WBC (Bld) 18.2 % Low 19-41 [facility] Comment on above: Performed By: #### L 500.4050, L100.0100 #### [facility] [address] [place], [address] MCH (RBC) [Entitic mass] 29.9 pg Normal 27.0-32.0 [facility] Comment on above: Performed By: #### L 500.4050, L100.0100 #### [facility] [address] [place], [address] MCHC (RBC) [Mass/Vol] 32.2 g/dL Normal 32-36 [facility] Comment on above: Performed By: #### L 500.4050, L100.0100 #### [facility] [address] [place], [address] MCV (RBC) [Entitic vol] 92.9 fL Normal 81-99 [facility] Comment on above: Performed By: #### L 500.4050, L100.0100 #### [facility] [address] [place], [address] Monocytes/100 WBC (Bld) 6.2 % Normal 0-10 [facility] Comment on above: Performed By: #### L 500.4050, L100.0100 #### [facility] [address] [place], [address] Neutrophils/100 WBC (Bld) 71.3 % High 47-70 [facility] Comment on above: Performed By: #### L 500.4050, L100.0100 #### [facility] [address] [place], [address] Nucleated RBC (Bld) [#/Vol] 0 10*3/uL Normal 0-5 [facility] Comment on above: Performed By: #### L 500.4050, L100.0100 #### [facility] [address] [place], [address] Platelet mean volume (Bld) [Entitic vol] 11.5 fL Normal 6.2-12.0 [facility] Comment on above: Performed By: #### L 500.4050, L100.0100 #### [facility] [address] [place], [address] Platelets (Bld) [#/Vol] 158 10*3/uL Normal 150-450 [facility] Comment on above: Performed By: #### L 500.4050, L100.0100 #### [facility] [address] [place], [address] RBC (Bld) [#/Vol] 3.81 10*6/uL Low 4.2-5.[address] [facility] Comment on above: Performed By: #### L 500.4050, L100.0100 #### [facility] [address] [place], [address] RDW SD 45.3 fl High 35.1-43.9 [facility] Comment on above: Performed By: #### L 500.4050, L100.0100 #### [facility] [address] [place], [address] WBC (Bld) [#/Vol] 5.3 10*3/uL Normal 4.4-11.0 [facility] Comment on above: Performed By: #### L 500.4050, L100.0100 #### [facility] [address] [place], [address] Carbon dioxide, total [Moles /volume] in Central venous bloodOrdered By: Liliana Wyman on 08-27-2024 CO2 [Moles/Vol] 23.6 mmol/L 21.0-32.0 [facility] Chloride assayOrdered By: Michael Wyman on 08-27-2024 Chloride [Moles/Vol] 107 mmol/L 98-108 [facility] Comprehensive Metabolic Prof ilon 08-27-2024 Albumin [Mass/Vol] 4.0 g/dL Normal 3.4-4.8 [facility] Comment on above: Performed By: #### L 500.4050, L100.0100 #### [facility] [address] [place], [address] Albumin/Globulin [Mass ratio] 1.5 {ratio} Normal 0.9-2.4 [facility] Comment on above: Performed By: #### L 500.4050, L100.0100 #### [facility] [address] [place], [address] ALK PHOS 117 U/L High 35-104 [facility] Comment on above: Performed By: #### L 500.4050, L100.0100 #### [facility] [address] [place], [address] ALT [Catalytic activity/Vol] 18 U/L Normal <=34 [facility] Comment on above: Performed By: #### L 500.4050, L100.0100 #### [facility] [address] [place], [address] AST [Catalytic activity/Vol] 21 U/L Normal <=31 [facility] Comment on above: Performed By: #### L 500.4050, L100.0100 #### [facility] [address] [place], [address] Bilirubin [Mass/Vol] 0.33 mg/dL Normal 0.00-1.30 [facility] Comment on above: Performed By: #### L 500.4050, L100.0100 #### [facility] [address] [place], [address] BUN/CRE 18.7 RATIO Normal 10-20 [facility] Comment on above: Performed By: #### L 500.4050, L100.0100 #### [facility] [address] [place], [address] Calcium [Mass/Vol] 9.0 mg/dL Normal 7.6-11.0 [facility] Comment on above: Performed By: #### L 500.4050, L100.0100 #### [facility] [address] [place], [address] Chloride [Moles/Vol] 107 mmol/L Normal 98-108 [facility] Comment on above: Performed By: #### L 500.4050, L100.0100 #### [facility] [address] [place], [address] CO2 [Moles/Vol] 23.6 mmol/L Normal 21.0-32.0 [facility] Comment on above: Performed By: #### L 500.4050, L100.0100 #### [facility] [address] [place], [address] Creatinine [Mass/Vol] 1.17 mg/dL Normal 0.70-1.20 [facility] Comment on above: Performed By: #### L 500.4050, L100.0100 #### [facility] [address] [place], [address] GAP 11 Normal 5-15 [facility] Comment on above: Performed By: #### L 500.4050, L100.0100 #### [facility] [address] [place], [address] GFR/1.73 sq M.predicted among non-blacks MDRD (S/P/Bld) [Vol rate/Area] 53 mL/min/{1.73_m2} Low >60 [facility] Comment on above: Result Comment: mL/m in/1.73m2 CKD-EPI Creatinine Equation (2020) Performed By: #### L 500.4050, L100.0100 #### [facility] [address] [place], [address] Globulin (S) [Mass/Vol] 2.7 g/dL Normal 2.2-4.2 [facility] Comment on above: Performed By: #### L 500.4050, L100.0100 #### [facility] [address] [place], [address] Glucose [Mass/Vol] 155 mg/dL High 70-99 [facility] Comment on above: Performed By: #### L 500.4050, L100.0100 #### [facility] [address] [place], [address] Potassium [Moles/Vol] 4.4 mmol/L Normal 3.3-5.1 [facility] Comment on above: Performed By: #### L 500.4050, L100.0100 #### [facility] [address] [place], [address] Sodium [Moles/Vol] 141 mmol/L Normal 133-145 [facility] Comment on above: Performed By: #### L 500.4050, L100.0100 #### [facility] [address] [place], [address] T PROT 6.7 g/dL Normal 5.9-8.4 [facility] Comment on above: Performed By: #### L 500.4050, L100.0100 #### [facility] [address] [place], [place], [address] Urea nitrogen [Mass/Vol] 22 mg/dL High 4-19 [facility] Comment on above: Performed By: #### L 500.4050, L100.0100 #### [facility] [address] [place], [place], [address] Eosinophil percentageOrdered By: Liliana Wyman on 08-27-2024 Eosinophils/100 WBC (Bld) 2.8 % 0-5 [facility] Erythrocyte distribution wid th ratioOrdered By: [facility] Garo on 08-27-2024 Erythrocyte distribution width (RBC) [Ratio] 13.2 % 11.6-14.6 [facility] Erythrocyte distribution wid th standard deviationOrdered By: Lilianajuan Wyman on 08-27-2024 Erythrocyte distribution width (RBC) [Ratio] 45.3 fl High 35.1-43.9 [facility] Glomerular filtration rate ( GFR) estimation/1.73 sq m using serum, plasma, or whole bOrdered By: Lilianajuan Wyman on 08-27-2024 GFR/1.73 sq M.predicted among non-blacks MDRD (S/P/Bld) [Vol rate/Area] 53 mL/min/{1.73_m2} Low >60 [facility] Comment on above: mL/min/1.73m2 CKD-EP I Creatinine Equation (2020) Hematocrit Auto (Bld) [Volum e fraction]Ordered By: Liliana Wyman on 08-27-2024 Hematocrit (Bld) [Volume fraction] 35.4 % Low 37-47 [facility] Hemoglobin measurementOrdere d By: Liliana Wyman on 08-27-2024 Hemoglobin (Bld) [Mass/Vol] 11.4 g/dL Low 12.0-15.0 [facility] Immature granulocytes/100 WB C Auto (Bld)Ordered By: Liliana Wyman on 08-27-2024 Immature granulocytes/100 WBC (Bld) 0.200 % 0.0-0.9 [facility] Comment on above: IG% - Immature Granu locytes (promyelocytes, myelocytes and metamyelocytes) > 1% indicates that a LEFT SHIFT is Present. Laboratory - Chemistry and C hemistry - challengeOrdered By: Liliana Wyman on 08-27-2024 AST [Catalytic activity/Vol] 21 U/L <32 [facility] MCV (mean corpuscular volume ) determinationOrdered By: Liliana Wyman on 08-27-2024 MCV (RBC) [Entitic vol] 92.9 fL 81-99 [facility] Mean corpuscular hemoglobin (MCH) determinationOrdered By: Liliana Wyman on 08-27-2024 MCH (RBC) [Entitic mass] 29.9 pg 27.0-32.0 [facility] Mean corpuscular hemoglobin concentration (MCHC) determinationOrdered By: Liliana Wyman on 08-27-2024 MCHC (RBC) [Mass/Vol] 32.2 g/dL 32-36 [facility] Mean platelet volume determi nationOrdered By: Liliana Wyman on 08-27-2024 Platelet mean volume (Bld) [Entitic vol] 11.5 fL 6.2-12.0 [facility] Monocyte percentageOrdered B y: Liliana Wyman on 08-27-2024 Monocytes/100 WBC (Bld) 6.2 % 0-10 [facility] Neutrophil percentageOrdered By: Liliana Wyman on 08-27-2024 Neutrophils/100 WBC (Bld) 71.3 % High 47-70 [facility] Nucleated red blood cell per centageOrdered By: Liliana Wyman on 08-27-2024 Nucleated RBC/100 WBC (Bld) [Ratio] 0 % 0-5 [facility] Platelet countOrdered By: Michael Wyman on 08-27-2024 Platelets (Bld) [#/Vol] 158 10*3/uL 150-450 [facility] Potassium measurement (mass/ volume)Ordered By: Liliana Wyman on 08-27-2024 Potassium (Unsp spec) [Mass/Vol] 4.4 mmol/L 3.3-5.1 [facility] RBC Auto (Bld) [#/Vol]Ordere d By: Liliana Wyman on 08-27-2024 RBC (Bld) [#/Vol] 3.81 10*6/uL Low 4.2-5.[address] [facility] Serum creatinine measurement (mass/volume)Ordered By: Liliana Wyman on 08-27-2024 Creatinine [Mass/Vol] 1.17 mg/dL 0.70-1.20 [facility] Serum globulin measurementOr dered By: Liliana Wyman on 08-27-2024 Globulin (S) [Mass/Vol] 2.7 g/dL 2.2-4.2 [facility] Serum glucose measurement (m ass/volume)Ordered By: Liliana Wyman on 08-27-2024 Glucose [Mass/Vol] 155 mg/dL High 70-99 [facility] Serum or plasma alanine hwang otransferase (ALT) measurementOrdered By: Liliana Wyman on 08-27-2024 ALT [Catalytic activity/Vol] 18 U/L <35 [facility] Serum or plasma albumin marylou urement (mass/volume)Ordered By: Liliana Wyman on 08-27-2024 Albumin [Mass/Vol] 4.0 g/dL 3.4-4.8 [facility] Serum or plasma albumin/glob ulin mass ratioOrdered By: Liliana Wyman on 08-27-2024 Albumin/Globulin [Mass ratio] 1.5 {ratio} 0.9-2.4 [facility] Serum or plasma alkaline aissatou sphatase measurementOrdered By: Liliana Wyman on 08-27-2024 ALP [Catalytic activity/Vol] 117 U/L High 35-104 [facility] Serum or plasma calcium marylou urement (mass/volume)Ordered By: Liliana Wyman on 08-27-2024 Calcium [Mass/Vol] 9.0 mg/dL 7.6-11.0 [facility] Serum or plasma urea nitroge n measurement (mass/volume)Ordered By: Liliana Wyman on 08-27-2024 Urea nitrogen [Mass/Vol] 22 mg/dL High 4-19 [facility] Sodium levelOrdered By: Lynn Wyman on 08-27-2024 Sodium [Moles/Vol] 141 mmol/L 133-145 [facility] Total proteinOrdered By: Alejandro Wyman on 08-27-2024 Protein [Mass/Vol] 6.7 g/dL 5.9-8.4 [facility] White blood cell (WBC) count Ordered By: Liliana Wyman on 08-27-2024 WBC (Bld) [#/Vol] 5.3 10*3/uL 4.4-11.0 [facility] CNPNon 08-15-2024 CNPN Telephone (DAYANARA) TARYN SELF ([id number]) 1960 F Date Time Provider Department 08/15/24 TRISTIAN MARTIN During your visit today, we recorded the following information about you: Becca Dudley RN 08/15/2024 10:33 AM Signed Pt lm on refill line for oxycodone , please advise if you will fill, asked that it go to the same place as the last time Becca Dudley RN August 15, 2024 10:33 AM Elmer Saldivar APRN.[employer]NAGEMENT SPECIALIST 08/15/2024 10:49 AM Signed Script sent as requested. 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) CLEOCIN (CLINDAMYCIN HCL) 06/16/2005 ERYTHROMYCIN BASE 11/20/2021 16 - Unknown PENICILLINS 06/16/2005 2 - Rash 16 - Unknown Date Reviewed: 06/05/2024 Reviewed by: Rosie García LPN - Fully Assessed Reason for Visit: Refill Request [94] Primary Visit Diagnosis:Chronic pain syndrome [G89.4] Order(s):oxyCODONE-acetamin ophen (PERCOCET) 10-325 mg tabletTake 1 tablet by mouth four times a day as needed for pain for up to 30 days.Disp: 120 tabletRfl: 0 Prescriptions as of 08/15/2024 - oxyCODONE-acetaminophen (PERCOCET) 10-325 mg tablet Take 1 tablet by mouth four times a day as needed for pain for up to 30 days. - DULoxetine (CYMBALTA) 60 mg capsule Take 1 capsule by mouth daily at bedtime. - DULoxetine (CYMBALTA) 30 mg capsule Take 1 capsule by mouth once daily. In am - naloxone 4 mg/actuation nasal spray (NARCAN) Use 1 spray in one nostril as needed for overdose. May repeat every 2 to 3 min in alternating nostrils until medical assistance is available - semaglutide 0.25 mg/0.5 mL (0.5 mg/mL) subcutaneous compounded injection Inject subcutaneously one time a week. - metFORMIN (GLUCOPHAGE) 1,000 mg tablet - lisinopril-hydroCHLOROthiaz mely (ZESTORETIC) 10-12.5 mg per tablet Take 1 tablet by mouth every afternoon. - gabapentin (NEURONTIN) 100 mg capsule TAKE 1 CAP BY MOUTH NIGHTLY NEEDED - busPIRone (BUSPAR) 5 mg tablet Take 1 tablet by mouth every 12 hours. - MOUNJARO 10 mg/0.5 mL pen injector - VRAYLAR 1.5 mg capsule Take 1 capsule by mouth every afternoon. - JARDIANCE 25 mg tablet - Clobetasol Propionate 0.05 % lotn Apply to affected area two times a day as needed. - omeprazole (PRILOSEC) 20 mg capsule Take 1 capsule by mouth every afternoon. - FARXIGA 10 mg tablet - levothyroxine (SYNTHROID) 25 mcg tablet Take 1 tablet by mouth every afternoon. - levocetirizine 5 mg tablet TAKE 1 TABLET BY MOUTH EVERY EVENING NEEDED ALLERGY SYMPTOMS - levothyroxine (SYNTHROID) 200 mcg tablet Take 1 tablet by mouth every afternoon. - metroNIDAZOLE (FLAGYL) 500 mg tablet Take 500 mg by mouth three times a day. - mupirocin (BACTROBAN) 2 % ointment Apply to affected area three times a day. - leflunomide (ARAVA) 20 mg tablet Take 20 mg by mouth once daily. - hydrOXYchloroQUINE (PLAQUENIL) 200 mg tablet - montelukast (SINGULAIR) 10 mg tablet Take 10 mg by mouth daily at bedtime. - predniSONE (DELTASONE) 10 mg tablet Take 10 mg by mouth. Only prn - lidocaine-prilocaine (EMLA) 2.5-2.5 % cream Apply to affected area as needed. - amLODIPine (NORVASC) 2.5 mg tablet Problem List As Of Date 08/15/2024 Noted Resolved Disorder of thyroid, unspecified [E07.9] 04/14/2010 Chest pain [R07.9] 04/14/2010 Obesity [E66.9] 04/14/2010 Glucose intolerance (impaired glucose tolerance*04/14/2010 Hematuria [R31.9] 04/24/2010 Antinuclear factor positive [R76.8] 11/13/2011 Fibromyalgia [M79.7] 11/13/2011 Essential (primary) hypertension [I10] 08/28/2014 LBP (low back pain) [M54.50] 08/28/2014 Graves disease [E05.00] Bilateral primary osteoarthritis of knee [M17.0]02/04/2017 Chronic kidney disease, stage 3 (moderate) [N18*02/04/2017 Fatty (change of) liver, not elsewhere classifi*02/04/2017 Other intervertebral disc degeneration, lumbar *02/04/2017 Other spondylosis, lumbosacral region [M47.897] 02/04/2017 Chronic pain syndrome [G89.4] 02/04/2017 Osteoarthritis of both knees [M17.0] 08/28/2021 Generalized osteoarthrosis, involving multiple *08/28/2021 Inflammatory spondylopathy of lumbar region (HC*08/28/2021 Vitamin D deficiency [E55.9] 10/02/2021 Vision disorder [H53.9] 10/02/2021 Type 2 diabetes mellitus without complications *07/29/2021 Sinusitis [J32.9] 10/02/2021 Seasonal allergies [J30.2] 10/02/2021 Presence of other specified functional implants*03/02/2017 Renal failure [N19] 10/02/2021 Obstructive sleep apnea syndrome [G47.33] 10/02/2021 Osteoarthritis of knee [M17.9] 06/14/2018 Pain of foot [M79.673] 10/02/2021 Prediabetes [R73.03] 10/02/2021 Fibromyositis [M79. (more content not included)... [facility] Joana 07-12-2024 CNPN Telephone (DAYANARA) TARYN SELF ([id number]) 1960 F Date Time Provider Department 07/12/24 TRISTIAN MARTIN During your visit today, we recorded the following information about you: Carline Cabrera RN 07/12/2024 12:49 PM Signed Pt called in today stating that [facility] called her and they do not have the percocet in stock. She needs a new script to go to [facility] pharmacy. Please sign attached script. Carline Cabrera RN July 12, 2024 12:49 PM Patient phones requesting refills as follows: Requested Prescriptions Pending Prescriptions Disp Refills oxyCODONE-acetaminophen (PERCOCET) 10-325 mg tablet 120 tablet 0 Sig: Take 1 tablet by mouth every 6 hours as needed for pain for up to 30 days. Last UDS: [facility] [employer] Summary Report Date Value Ref Range Status 06/05/2024 FINAL Final Comment: Opiate Class, MS, Ur RFX Oxycodone Class, MS, Ur RFX Gabapentin, MS, Ur RFX ToxAssure Flex 23, Ur Test Result Flag Units Drug Present Oxycodone 1468 ng/mg creat Oxymorphone 755 ng/mg creat Noroxycodone 3449 ng/mg creat Sources of oxycodone include scheduled prescription medications. Oxymorphone and noroxycodone are expected metabolites of oxycodone. Oxymorphone is also available as a scheduled prescription medication. Gabapentin PRESENT Test Result Flag Units Ref Range Creatinine 77 mg/dL >=20 Declared Medications: Medication list was not provided. For clinical consultation, please call . No results found for: UQNOTE, OPIATEPNMGT, DRUGSCRPAIN Urine Panel: No results found for: UQCANN, UQBNZL, SNM8ZWW, UQAMPH, UQMAMP, UQBUPRE, UQNORBUP, UQMTHD, UQEDDP, UQTRAM, UQDTRM, UQFNTL, UQNFTL, UQCODE, UQMORP, UQDCDN, UQHCOD, UQOXYC, UQHMOR, UQOXYM, UQCREA, UQPH, UQSPGR, UQOXID, UQSPQ Lab Results Component Value Date SUMM FINAL 06/05/2024 Summary Report (Summary) Date Value Ref Range Status 11/24/2021 FINAL Final Comment: TOXASSURE COMP DRUG ANALYSIS,UR Test Result Flag Units Drug Present Oxycodone 1251 ng/mg creat Oxymorphone 792 ng/mg creat Noroxycodone 3098 ng/mg creat Noroxymorphone 53 ng/mg creat Sources of oxycodone are scheduled prescription medications. Oxymorphone, noroxycodone, and noroxymorphone are expected metabolites of oxycodone. Oxymorphone is also available as a scheduled prescription medication. Duloxetine PRESENT Acetaminophen PRESENT Test Result Flag Units Ref Range Creatinine 159 mg/dL >=20 Declared Medications: Medication list was not provided. For clinical consultation, please call . Last Opioid agreement effective date: 03/08/2024 Please review and advise. Carline Cabrera, RN Tristian Martin PA-C 07/12/2024 12:56 PM Signed The following approved medication requests have been transmitted electronically. Requested Prescriptions Signed Prescriptions Disp Refills oxyCODONE-acetaminophen (PERCOCET) 10-325 mg tablet 120 tablet 0 Sig: Take 1 tablet by mouth every 6 hours as needed for pain for up to 30 days. 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 Normal [facility] Absolute lymphocyte countOrd ered By: Liliana Wyman on 06-07-2024 Lymphocytes Auto (Unsp spec) [#/Vol] 1.53 10*3/uL 0.83-4.51 [facility] Absolute neutrophil countOrd ered By: Liliana Wyman on 06-07-2024 Neutrophils (Bld) [#/Vol] 3.2 10*3/uL 2.0-7.7 [facility] Anion gap in Serum or Plasma Ordered By: Liliana Wyman on 06-07-2024 Anion gap [Moles/Vol] 9 mmol/L 5-15 [facility] Automated lymphocyte count a s percentage of total leukocytesOrdered By: Liliana Wyman on 06-07-2024 Lymphocytes/100 WBC Auto (Unsp spec) 27.6 % 19-41 [facility] BUN/creatinine ratioOrdered By: [facility] Garo on 06-07-2024 Urea nitrogen/Creatinine [Mass ratio] 20.1 mg/mg High 10-20 [facility] Basophil percentageOrdered B y: Liliana Wyman on 06-07-2024 Basophils/100 WBC (Bld) 1.3 % High 0-1 [facility] Bilirubin, totalOrdered By: Lilianajuan Wyman on 06-07-2024 Bilirubin [Mass/Vol] 0.33 mg/dL 0.00-1.30 [facility] CBC W/Diff, Automatedon 05-22 Absolute Lymph 1.53 X10 3/uL Normal 0.83-4.51 [facility] Comment on above: Performed By: #### L 100.0100, L500.4050 #### [facility] [address] [place], [address] Absolute Neut 3.2 X10 3/uL Normal 2.0-7.7 [facility] Comment on above: Performed By: #### L 100.0100, L500.4050 #### [facility] [address] [place], [address] Basophils/100 WBC (Bld) 1.3 % High 0-1 [facility] Comment on above: Performed By: #### L 100.0100, L500.4050 #### [facility] [address] [place], [address] Eosinophils/100 WBC (Bld) 6.3 % High 0-5 [facility] Comment on above: Performed By: #### L 100.0100, L500.4050 #### [facility] [address] [place], [address] Erythrocyte distribution width (RBC) [Ratio] 13.1 % Normal 11.6-14.6 [facility] Comment on above: Performed By: #### L 100.0100, L500.4050 #### [facility] [address] [place], [address] Hematocrit (Bld) [Volume fraction] 39.2 % Normal 37-47 [facility] Comment on above: Performed By: #### L 100.0100, L500.4050 #### [facility] [address] [place], [address] Hemoglobin (Bld) [Mass/Vol] 12.7 g/dL Normal 12.0-15.0 [facility] Comment on above: Performed By: #### L 100.0100, L500.4050 #### [facility] [address] [place], [address] IG% 0.400 Normal 0.0-0.9 [facility] Comment on above: Result Comment: IG% - Immature Granulocytes (promyelocytes, myelocytes and metamyelocytes) > 1% indicates that a LEFT SHIFT is Present. Performed By: #### L 100.0100, L500.4050 #### [facility] [address] [place], [address] Lymphocytes/100 WBC (Bld) 27.6 % Normal 19-41 [facility] Comment on above: Performed By: #### L 100.0100, L500.4050 #### [facility] [address] [place], [address] MCH (RBC) [Entitic mass] 30.0 pg Normal 27.0-32.0 [facility] Comment on above: Performed By: #### L 100.0100, L500.4050 #### [facility] [address] [place], [address] MCHC (RBC) [Mass/Vol] 32.4 g/dL Normal 32-36 [facility] Comment on above: Performed By: #### L 100.0100, L500.4050 #### [facility] [address] [place], [address] MCV (RBC) [Entitic vol] 92.5 fL Normal 81-99 [facility] Comment on above: Performed By: #### L 100.0100, L500.4050 #### [facility] [address] [place], [address] Monocytes/100 WBC (Bld) 6.5 % Normal 0-10 [facility] Comment on above: Performed By: #### L 100.0100, L500.4050 #### [facility] [address] [place], [address] Neutrophils/100 WBC (Bld) 57.9 % Normal 47-70 [facility] Comment on above: Performed By: #### L 100.0100, L500.4050 #### [facility] [address] [place], [address] Nucleated RBC (Bld) [#/Vol] 0 10*3/uL Normal 0-5 [facility] Comment on above: Performed By: #### L 100.0100, L500.4050 #### [facility] [address] [place], [address] Platelet mean volume (Bld) [Entitic vol] 12.0 fL Normal 6.2-12.0 [facility] Comment on above: Performed By: #### L 100.0100, L500.4050 #### [facility] [address] [place], [address] Platelets (Bld) [#/Vol] 176 10*3/uL Normal 150-450 [facility] Comment on above: Performed By: #### L 100.0100, L500.4050 #### [facility] [address] [place], [address] RBC (Bld) [#/Vol] 4.24 10*6/uL Normal 4.2-5.[address] [facility] Comment on above: Performed By: #### L 100.0100, L500.4050 #### [facility] [address] [place], [address] RDW SD 44.3 fl High 35.1-43.9 [facility] Comment on above: Performed By: #### L 100.0100, L500.4050 #### [facility] [address] [place], [address] WBC (Bld) [#/Vol] 5.6 10*3/uL Normal 4.4-11.0 [facility] Comment on above: Performed By: #### L 100.0100, L500.4050 #### [facility] [address] [place], [address] Carbon dioxide, total [Moles /volume] in Central venous bloodOrdered By: Liliana Wyman on 06-07-2024 CO2 [Moles/Vol] 26.7 mmol/L 21.0-32.0 [facility] Chloride assayOrdered By: Michael Wyman on 06-07-2024 Chloride [Moles/Vol] 105 mmol/L 98-108 [facility] Comprehensive Metabolic Prof ilon 06-07-2024 Albumin [Mass/Vol] 4.0 g/dL Normal 3.4-4.8 [facility] Comment on above: Performed By: #### L 100.0100, L500.4050 #### [facility] [address] [place], [address] Albumin/Globulin [Mass ratio] 1.5 {ratio} Normal 0.9-2.4 [facility] Comment on above: Performed By: #### L 100.0100, L500.4050 #### [facility] [address] [place], [address] ALK PHOS 126 U/L High 35-104 [facility] Comment on above: Performed By: #### L 100.0100, L500.4050 #### [facility] [address] [place], [address] ALT [Catalytic activity/Vol] 19 U/L Normal <=34 [facility] Comment on above: Performed By: #### L 100.0100, L500.4050 #### [facility] [address] [place], [address] AST [Catalytic activity/Vol] 21 U/L Normal <=31 [facility] Comment on above: Performed By: #### L 100.0100, L500.4050 #### [facility] [address] [place], [address] Bilirubin [Mass/Vol] 0.33 mg/dL Normal 0.00-1.30 [facility] Comment on above: Performed By: #### L 100.0100, L500.4050 #### [facility] [address] [place], [address] BUN/CRE 20.1 RATIO High 10-20 [facility] Comment on above: Performed By: #### L 100.0100, L500.4050 #### [facility] [address] [place], [address] Calcium [Mass/Vol] 9.3 mg/dL Normal 7.6-11.0 [facility] Comment on above: Performed By: #### L 100.0100, L500.4050 #### [facility] [address] [place], [address] Chloride [Moles/Vol] 105 mmol/L Normal 98-108 [facility] Comment on above: Performed By: #### L 100.0100, L500.4050 #### [facility] [address] [place], [address] CO2 [Moles/Vol] 26.7 mmol/L Normal 21.0-32.0 [facility] Comment on above: Performed By: #### L 100.0100, L500.4050 #### [facility] [address] [place], [address] Creatinine [Mass/Vol] 1.32 mg/dL High 0.70-1.20 [facility] Comment on above: Performed By: #### L 100.0100, L500.4050 #### [facility] [address] [place], [address] GAP 9 Normal 5-15 [facility] Comment on above: Performed By: #### L 100.0100, L500.4050 #### [facility] [address] [place], [address] GFR/1.73 sq M.predicted among non-blacks MDRD (S/P/Bld) [Vol rate/Area] 46 mL/min/{1.73_m2} Low >60 [facility] Comment on above: Result Comment: mL/m in/1.73m2 CKD-EPI Creatinine Equation (2020) Performed By: #### L 100.0100, L500.4050 #### [facility] [address] [place], [address] Globulin (S) [Mass/Vol] 2.7 g/dL Normal 2.2-4.2 [facility] Comment on above: Performed By: #### L 100.0100, L500.4050 #### [facility] [address] [place], [address] Glucose [Mass/Vol] 133 mg/dL High 70-99 [facility] Comment on above: Performed By: #### L 100.0100, L500.4050 #### [facility] [address] [place], [address] Potassium [Moles/Vol] 4.6 mmol/L Normal 3.3-5.1 [facility] Comment on above: Performed By: #### L 100.0100, L500.4050 #### [facility] [address] [place], [address] Sodium [Moles/Vol] 141 mmol/L Normal 133-145 [facility] Comment on above: Performed By: #### L 100.0100, L500.4050 #### [facility] [address] [place], [address] T PROT 6.6 g/dL Normal 5.9-8.4 [facility] Comment on above: Performed By: #### L 100.0100, L500.4050 #### [facility] [address] [place], [address] Urea nitrogen [Mass/Vol] 27 mg/dL High 4-19 [facility] Comment on above: Performed By: #### L 100.0100, L500.4050 #### [facility] [address] [place], [address] Eosinophil percentageOrdered By: Liliana Wyman on 06-07-2024 Eosinophils/100 WBC (Bld) 6.3 % High 0-5 [facility] Erythrocyte distribution wid th (RBC) [Ratio]Ordered By: Liliana Wyman on 06-07-2024 Erythrocyte distribution width (RBC) [Entitic vol] 44.3 fL High 35.1-43.9 [facility] Erythrocyte distribution wid th ratioOrdered By: Liliana Wyman on 06-07-2024 Erythrocyte distribution width (RBC) [Ratio] 13.1 % 11.6-14.6 [facility] Erythrocyte distribution wid th standard deviationOrdered By: Liliana Wyman on 06-07-2024 Erythrocyte distribution width (RBC) [Ratio] 44.3 fl High 35.1-43.9 [facility] GFR/1.73 sq M.predicted maría g non-blacks MDRD (S/P/Bld) [Vol rate/Area]Ordered By: Liliana Wyman on 06-07-2024 Estimated GFR (MDRD) Non-Af Amer 46 Low >60 [facility] Comment on above: mL/min/1.73m2 CKD-EP I Creatinine Equation (2020) Glomerular filtration rate ( GFR) estimation/1.73 sq m using serum, plasma, or whole bOrdered By: Liliana Wyman on 06-07-2024 GFR/1.73 sq M.predicted among non-blacks MDRD (S/P/Bld) [Vol rate/Area] 46 mL/min/{1.73_m2} Low >60 [facility] Comment on above: mL/min/1.73m2 CKD-EP I Creatinine Equation (2020) Hematocrit Auto (Bld) [Volum e fraction]Ordered By: Liliana Wyman on 06-07-2024 Hematocrit (Bld) [Volume fraction] 39.2 % 37-47 [facility] Hemoglobin measurementOrdere d By: Liliana Wyman on 06-07-2024 Hemoglobin (Bld) [Mass/Vol] 12.7 g/dL 12.0-15.0 [facility] Immature granulocytes/100 WB C Auto (Bld)Ordered By: Liliana Wyman on 06-07-2024 Immature granulocytes/100 WBC (Bld) 0.400 % 0.0-0.9 [facility] Comment on above: IG% - Immature Granu locytes (promyelocytes, myelocytes and metamyelocytes) > 1% indicates that a LEFT SHIFT is Present. Laboratory - Chemistry and C hemistry - challengeOrdered By: Liliana Wyman on 06-07-2024 AST [Catalytic activity/Vol] 21 U/L <32 [facility] Lymphocytes Auto (Unsp spec) [#/Vol]Ordered By: Liliana Wyman on 06-07-2024 Lymphocytes (Bld) [#/Vol] 1.53 10*3/uL 0.83-4.51 [facility] Lymphocytes/100 WBC Auto (Un sp spec)Ordered By: Liliana Wyman on 06-07-2024 Lymphocytes/100 WBC (Bld) 27.6 % 19-41 [facility] MCV (mean corpuscular volume ) determinationOrdered By: Liliana Wyman on 06-07-2024 MCV (RBC) [Entitic vol] 92.5 fL 81-99 [facility] Mean corpuscular hemoglobin (MCH) determinationOrdered By: Liliana Wyman on 06-07-2024 MCH (RBC) [Entitic mass] 30.0 pg 27.0-32.0 [facility] Mean corpuscular hemoglobin concentration (MCHC) determinationOrdered By: Liliana Wyman on 06-07-2024 MCHC (RBC) [Mass/Vol] 32.4 g/dL 32-36 [facility] Mean platelet volume determi nationOrdered By: Liliana Wyman on 06-07-2024 Platelet mean volume (Bld) [Entitic vol] 12.0 fL 6.2-12.0 [facility] Monocyte percentageOrdered B y: Liliana Wyman on 06-07-2024 Monocytes/100 WBC (Bld) 6.5 % 0-10 [facility] Neutrophil percentageOrdered By: Liliana Wyman on 06-07-2024 Neutrophils/100 WBC (Bld) 57.9 % 47-70 [facility] Nucleated red blood cell per centageOrdered By: Liliana Wyman on 06-07-2024 Nucleated RBC/100 WBC (Bld) [Ratio] 0 % 0-5 [facility] Platelet countOrdered By: Michael Wyman on 06-07-2024 Platelets (Bld) [#/Vol] 176 10*3/uL 150-450 [facility] Potassium (Unsp spec) [Mass/ Vol]Ordered By: Liliana Wyman on 06-07-2024 Potassium [Moles/Vol] 4.6 mmol/L 3.3-5.1 [facility] Potassium measurement (mass/ volume)Ordered By: Liliana Wyman on 06-07-2024 Potassium (Unsp spec) [Mass/Vol] 4.6 mmol/L 3.3-5.1 [facility] RBC Auto (Bld) [#/Vol]Ordere d By: Liliana Wyman on 06-07-2024 RBC (Bld) [#/Vol] 4.24 10*6/uL 4.2-5.[address] [facility] Serum creatinine measurement (mass/volume)Ordered By: Liliana Wyman on 06-07-2024 Creatinine [Mass/Vol] 1.32 mg/dL High 0.70-1.20 [facility] Serum globulin measurementOr dered By: Liliana Wyman on 06-07-2024 Globulin (S) [Mass/Vol] 2.7 g/dL 2.2-4.2 [facility] Serum glucose measurement (m ass/volume)Ordered By: Liliana Wyman on 06-07-2024 Glucose [Mass/Vol] 133 mg/dL High 70-99 [facility] Serum or plasma alanine hwang otransferase (ALT) measurementOrdered By: Liliana Wyman on 06-07-2024 ALT [Catalytic activity/Vol] 19 U/L <35 [facility] Serum or plasma albumin marylou urement (mass/volume)Ordered By: Liliana Wyman on 06-07-2024 Albumin [Mass/Vol] 4.0 g/dL 3.4-4.8 [facility] Serum or plasma albumin/glob ulin mass ratioOrdered By: Liliana Wyman on 06-07-2024 Albumin/Globulin [Mass ratio] 1.5 {ratio} 0.9-2.4 [facility] Serum or plasma alkaline aissatou sphatase measurementOrdered By: Liliana Wyman on 06-07-2024 ALP [Catalytic activity/Vol] 126 U/L High 35-104 [facility] Serum or plasma calcium marylou urement (mass/volume)Ordered By: Liliana Wyman on 06-07-2024 Calcium [Mass/Vol] 9.3 mg/dL 7.6-11.0 [facility] Serum or plasma urea nitroge n measurement (mass/volume)Ordered By: Liliana Wyman on 06-07-2024 Urea nitrogen [Mass/Vol] 27 mg/dL High 4-19 [facility] Sodium levelOrdered By: Lynn Wyman on 06-07-2024 Sodium [Moles/Vol] 141 mmol/L 133-145 [facility] Total proteinOrdered By: Alejandro Wyman on 06-07-2024 Protein [Mass/Vol] 6.6 g/dL 5.9-8.4 [facility] White blood cell (WBC) count Ordered By: Liliana yWman on 06-07-2024 WBC (Bld) [#/Vol] 5.6 10*3/uL 4.4-11.0 [facility] CNOVon 06-05-2024 CNOV Office Visit (DAYANARA ) ARAMISTARYN ([id number]) 1960 F Date Time Provider Department 06/05/24 8:30 AM TRISTIAN MARTIN During your visit today, we recorded the following information about you: Pulse Respiration Blood pressure Weight 59/minute 20/minute 134/73 139.1 kg Height 1.626 m Rosie García LPN 06/05/2024 9:03 AM Signed Low back - pain goes into legs, right sometimes. Tristian Martin PA-C 06/05/2024 9:05 AM Addendum PATIENT: Taryn Self : 1960 DATE OF SERVICE: 06/05/2024 REFERRING PRACTITIONER: Tristian Martin PA-C PRIMARY CARE PROVIDER: Janet Zafar CNP CHIEF COMPLAINT: Patient presents with: Back Pain: Low back Pain: Knees All over HISTORY OF PRESENT ILLNESS: Taryn Self is a 63 year old year old female who presents to the clinic today with chief complaint(s) as above. Following up for: low back pain, leg pain, widespread pain, narcotic use Response to treatment recommendations: Pt is prescribed high does of Oxycodone. She denies side effects but reports frustration due to lack of availability of medication in pharmacies. The medication help reduce pain and increase function Current primary concern/description: low back pain/aching Pain Level: 8 /10 Better with: medication, reposition, rest, SCS Worse with: standing, walking Numbness/Tingling: [x] Yes [] No intermittent, wide spread Bladder/bowel fxn change: [] Yes [x] No --- Review of Systems Constitutional: Negative. HENT: Negative. Eyes: Negative. Cardiovascular: Positive for leg swelling. Respiratory: Negative. Endocrine: Negative. Skin: Negative. Musculoskeletal: Positive for arthritis, back pain, joint pain, myalgias and neck pain. Gastrointestinal: Positive for constipation. Genitourinary: Negative. Neurological: Positive for paresthesias. Psychiatric/Behavioral: Negative. 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 DULoxetine (CYMBALTA) 30 mg capsule Take 1 capsule by mouth once daily. In am oxyCODONE (ROXICODONE) 15 mg immediate release tablet Take 1 tablet by mouth every 8 hours as needed for pain for up to 30 days. semaglutide 0.25 mg/0.5 mL (0.5 mg/mL) subcutaneous compounded injection Inject subcutaneously one time a week. metFORMIN (GLUCOPHAGE) 1,000 mg tablet lisinopril-hydroCHLOROthiaz mely (ZESTORETIC) 10-12.5 mg per tablet Take 1 tablet by mouth every afternoon. gabapentin (NEURONTIN) 100 mg capsule TAKE 1 CAP BY MOUTH NIGHTLY NEEDED busPIRone (BUSPAR) 5 mg tablet Take 1 tablet by mouth every 12 hours. MOUNJARO 10 mg/0.5 mL pen injector VRAYLAR 1.5 mg capsule Take 1 capsule by mouth every afternoon. JARDIANCE 25 mg tablet Clobetasol Propionate 0.05 % lotn Apply to affected area two times a day as needed. omeprazole (PRILOSEC) 20 mg capsule Take 1 capsule by mouth every afternoon. FARXIGA 10 mg tablet levothyroxine (SYNTHROID) 25 mcg tablet Take 1 tablet by mouth every afternoon. levocetirizine 5 mg tablet TAKE 1 TABLET BY MOUTH EVERY EVENING NEEDED ALLERGY SYMPTOMS levothyroxine (SYNTHROID) 200 mcg tablet Take 1 tablet by mouth every afternoon. metroNIDAZOLE (FLAGYL) 500 mg tablet Take 500 mg by mouth three times a day. mupirocin (BACTROBAN) 2 % ointment Apply to affected area three times a day. leflunomide (ARAVA) 20 mg tablet Take 20 mg by mouth once daily. hydrOXYchloroQUINE (PLAQUENIL) 200 mg tablet montelukast (SINGULAIR) 10 mg tablet Take 10 mg by mouth daily at bedtime. predniSONE (D (more content not included)... 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: 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 Syrup Maker Required: No Is patient in pain?: No Allergies adhesive tape (tape) Allergy (Severe, Verified 04/02/24 09:32) BREAKS OUT erythromycin base Allergy (Intermediate, Verified 04/02/24 09:32) Break out Penicillins Allergy (Unknown, Verified 04/02/24 09:32) Swollen tongue Medications ???Medication ???Instructions ???Recorded ???Confirmed ???Type duloxetine 30 mg capsule,delayed 30 mg PO DAILY 10/18/17 04/02/24 H istory release duloxetine 60 mg capsule,delayed 60 mg PO QHS 10/18/17 04/02/24 His tory release oxycodone-acetaminophen 10 mg-325 1 tab PO TID 10/18/17 04/02/24 Hi story mg tablet blood sugar diagnostic (FreeStyle #100 ea 05/30/19 04/02/24 Rx Lite Strips) blood-glucose meter (FreeStyle #1 ea 05/30/19 04/02/24 Rx Lite Meter kit) lancets 28 gauge (FreeStyle #200 ea 05/30/19 04/02/24 Rx Lancets) prednisone 10 mg tablet 10 mg PO .prn 06/04/20 04/02/24 Hi story leflunomide 10 mg tablet 5 mg PO DAILY 09/03/20 04/02/24 Hi story hydrocortisone 2.5 % topical cream 1 applic topical BID PRN rash #3 0 09/09/20 04/02/24 Rx grams hydroxychloroquine 200 mg tablet 200 mg PO DAILY 07/29/21 04/02/24 History (Plaquenil) levothyroxine 200 mcg tablet 200 mcg PO DAILY #60 tabs 11/11/21 04/02/24 Rx montelukast 10 mg tablet 10 mg PO QHS #90 tabs 01/25/2212/15 Rx (Singulair) adapalene 0.1 % topical gel 1 applic topical QHS #45 grams 04/02/24 Rx amlodipine 2.5 mg tablet 2.5 mg PO DAILY #90 tabs 03/10/22 04/02/24 Rx dapagliflozin propanediol 10 mg 10 mg PO QAM #90 tabs 05/20/2212/15 Rx tablet (Farxiga) levocetirizine 5 mg tablet 5 mg PO QPM PRN allergy symptoms 0 05/20/22 04/02/24 Rx #90 tabs collagenase clostridium histo. 250 1 applic topical DAILY #30 grams 07/16/22 04/02/24 Rx unit/gram topical ointment (Santyl) levothyroxine 25 mcg tablet See Rx Instructions .Route 3 04/02/24 Rx .COMPLEX #90 tabs omeprazole 20 mg capsule,delayed See Rx Instructions .Route 3 04/02/24 Rx release .COMPLEX #30 caps semaglutide 1 mg/dose (4 mg/3 mL) 1 mg subcut QWEEK 04/02/24 History subcutaneous pen injector (Ozempic) Is last menstrual period known: No Post menopausal: Yes Patient : No : No [facility] Medical History Cystic acne vulgaris Osteoarthritis of right knee Disc degeneration, lumbar Dermatitis Mitral valve prolapse Fibromyalgia Vitamin D deficiency Vision problems Kidney failure High cholesterol High blood pressure Back problem Arthritis Seasonal allergies Surgical History history medtronic implant back History of tubal ligation history thymus gland removed History of Family History Grandfather Myocardial infarction Social History alcohol intake: never substance use type: does not use caffeine: Yes what type of physical activity do you participate in: none seatbelt use: sometimes do you feel safe at home: Yes additional social history: [employer] Patient is on disability History 2 Elective abortions Hx Para 2 Spontaneous abortions Hx # Term Pregnancies Ectopic pregnancies Hx # Pregnancies Multiple births # of living children Past Pregnancies Del. Date Name GA/Weeks Outcome Route Bth Weight Gen Labor Lgth Anesthesia Del [facility] Provider FOB Unknown 1981 Shoaib Unknown 1993 [facility] Encounter for routine gynecological examination Details: TARYN SELF is a 63 year old who presents for annual exam. Denies concerns. Last PAP: 03/2023 History of abnormal PAP: no Last mammogram: 03/2023 History of abnormal mammogram: no Colon cancer screening: gadiel Other preventative health care screenings: Justin Montiel Female Reproductive History Questions: metorrhagia: No and sexually active: No Menopausal Treatment: No HRT, No Vaginal Estrogen, No Osphena, No OTC treatments and No prescription non-hormonal treatment ROS Const Constitutional: Denies fat (more content not included)... Normal [facility] Absolute neutrophil countOrd ered By: Liliana Wyman on 03-13-2024 Neutrophils (Bld) [#/Vol] 3.6 10*3/uL 2.0-7.7 [facility] Albumin to globulin ratioOrd ered By: Liliana Wyman on 03-13-2024 Albumin/Globulin [Mass ratio] 1.0 {ratio} 0.9-2.4 [facility] Basophil percentageOrdered B y: Liliana Wyman on 03-13-2024 Basophils/100 WBC (Bld) 1.0 % 0-1 [facility] Bilirubin, totalOrdered By: Liliana Wyman on 03-13-2024 Bilirubin [Mass/Vol] 0.40 mg/dL 0.20-1.00 [facility] Comment on above: For patients on eltr ombopag therapy, use of Dimension [place] TBIL is not recommended. Blood urea nitrogen (BUN)/cr eatinine ratioOrdered By: Liliana Wyman on 03-13-2024 Urea nitrogen/Creatinine [Mass ratio] 13.7 mg/mg 10-20 [facility] CBC W/Diff, Automatedon -2 Absolute Lymph 1.86 X10 3/uL Normal 0.83-4.51 [facility] Comment on above: Performed By: #### L 100.0100, L500.4050 #### [facility] [address] [place], [address] Absolute Neut 3.6 X10 3/uL Normal 2.0-7.7 [facility] Comment on above: Performed By: #### L 100.0100, L500.4050 #### [facility] [address] [place], [address] Basophils/100 WBC (Bld) 1.0 % Normal 0-1 [facility] Comment on above: Performed By: #### L 100.0100, L500.4050 #### [facility] [address] [place], [address] Eosinophils/100 WBC (Bld) 6.0 % High 0-5 [facility] Comment on above: Performed By: #### L 100.0100, L500.4050 #### [facility] [address] [place], [address] Erythrocyte distribution width (RBC) [Ratio] 13.1 % Normal 11.6-14.6 [facility] Comment on above: Performed By: #### L 100.0100, L500.4050 #### [facility] [address] [place], [address] Hematocrit (Bld) [Volume fraction] 40.4 % Normal 37-47 [facility] Comment on above: Performed By: #### L 100.0100, L500.4050 #### [facility] [address] [place], [address] Hemoglobin (Bld) [Mass/Vol] 12.9 g/dL Normal 12.0-15.0 [facility] Comment on above: Performed By: #### L 100.0100, L500.4050 #### [facility] [address] [place], [address] IG% 0.200 Normal 0.0-0.9 [facility] Comment on above: Result Comment: IG% - Immature Granulocytes (promyelocytes, myelocytes and metamyelocytes) > 1% indicates that a LEFT SHIFT is Present. Performed By: #### L 100.0100, L500.4050 #### [facility] [address] [place], [address] Lymphocytes/100 WBC (Bld) 29.5 % Normal 19-41 [facility] Comment on above: Performed By: #### L 100.0100, L500.4050 #### [facility] [address] [place], [address] MCH (RBC) [Entitic mass] 30.0 pg Normal 27.0-32.0 [facility] Comment on above: Performed By: #### L 100.0100, L500.4050 #### [facility] [address] [place], [address] MCHC (RBC) [Mass/Vol] 31.9 g/dL Low 32-36 [facility] Comment on above: Performed By: #### L 100.0100, L500.4050 #### [facility] [address] [place], [address] MCV (RBC) [Entitic vol] 94.0 fL Normal 81-99 [facility] Comment on above: Performed By: #### L 100.0100, L500.4050 #### [facility] [address] [place], [address] Monocytes/100 WBC (Bld) 6.2 % Normal 0-10 [facility] Comment on above: Performed By: #### L 100.0100, L500.4050 #### [facility] [address] [place], [address] Neutrophils/100 WBC (Bld) 57.1 % Normal 47-70 [facility] Comment on above: Performed By: #### L 100.0100, L500.4050 #### [facility] [address] [place], [address] Nucleated RBC (Bld) [#/Vol] 0 10*3/uL Normal 0-5 [facility] Comment on above: Performed By: #### L 100.0100, L500.4050 #### [facility] [address] [place], [address] Platelet mean volume (Bld) [Entitic vol] 11.0 fL Normal 6.2-12.0 [facility] Comment on above: Performed By: #### L 100.0100, L500.4050 #### [facility] [address] [place], [address] Platelets (Bld) [#/Vol] 190 10*3/uL Normal 150-450 [facility] Comment on above: Performed By: #### L 100.0100, L500.4050 #### [facility] [address] [place], [address] RBC (Bld) [#/Vol] 4.30 10*6/uL Normal 4.2-5.[address] [facility] Comment on above: Performed By: #### L 100.0100, L500.4050 #### [facility] [address] [place], [address] RDW SD 45.1 fl High 35.1-43.9 [facility] Comment on above: Performed By: #### L 100.0100, L500.4050 #### [facility] [address] [place], [address] WBC (Bld) [#/Vol] 6.3 10*3/uL Normal 4.4-11.0 [facility] Comment on above: Performed By: #### L 100.0100, L500.4050 #### [facility] [address] [place], [address] CNPJina 03-13-2024 CNPN Telephone (PAIMER) TARYN SELF ([id number]) 1960 F Date Time Provider Department 03/13/24 TRISTIAN MARTIN During your visit today, we recorded the following information about you: Carline Cabrera RN 03/13/2024 1:55 PM Signed Pt called in today stating that she had a partial fill of 20 tablets of the Oxycodone filled on 03/09. Pharmacy is requesting a new script be sent. Please advise. Carline Cabrera RN March 13, 2024 1:55 PM Tristian Martin PA-C 03/13/2024 2:09 PM Signed The following approved medication requests have been transmitted electronically. Requested Prescriptions Signed Prescriptions Disp Refills oxyCODONE (ROXICODONE) 15 mg immediate release tablet 70 tablet 0 Sig: Take 1 tablet by mouth three times a day as needed for pain for up to 23 days. 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 To complete the full script of 90 tablets/monthDisp: 70 tabletRfl: 0 Prescriptions as of 03/13/2024 - oxyCODONE (ROXICODONE) 15 mg immediate release tablet Take 1 tablet by mouth three times a day as needed for pain for up to 23 days. To complete the full script of 90 tablets/month - DULoxetine (CYMBALTA) 60 mg capsule Take 1 capsule by mouth daily at bedtime. - DULoxetine (CYMBALTA) 30 mg capsule Take 1 capsule by mouth once daily. In am - semaglutide 0.25 mg/0.5 mL (0.5 mg/mL) subcutaneous compounded injection Inject subcutaneously one time a week. - metFORMIN (GLUCOPHAGE) 1,000 mg tablet - lisinopril-hydroCHLOROthiaz mely (ZESTORETIC) 10-12.5 mg per tablet Take 1 tablet by mouth every afternoon. - gabapentin (NEURONTIN) 100 mg capsule TAKE 1 CAP BY MOUTH NIGHTLY NEEDED - busPIRone (BUSPAR) 5 mg tablet Take 1 tablet by mouth every 12 hours. - MOUNJARO 10 mg/0.5 mL pen injector inject 10 mg weekly sq - VRAYLAR 1.5 mg capsule Take 1 capsule by mouth every afternoon. - JARDIANCE 25 mg tablet - Clobetasol Propionate 0.05 % lotn Apply to affected area two times a day as needed. - omeprazole (PRILOSEC) 20 mg capsule Take 1 capsule by mouth every afternoon. - FARXIGA 10 mg tablet - levothyroxine (SYNTHROID) 25 mcg tablet Take 1 tablet by mouth every afternoon. - levocetirizine 5 mg tablet TAKE 1 TABLET BY MOUTH EVERY EVENING NEEDED ALLERGY SYMPTOMS - levothyroxine (SYNTHROID) 200 mcg tablet Take 1 tablet by mouth every afternoon. - metroNIDAZOLE (FLAGYL) 500 mg tablet Take 500 mg by mouth three times daily. - mupirocin (BACTROBAN) 2 % ointment Apply to affected area three times daily. - leflunomide (ARAVA) 20 mg tablet Take 20 mg by mouth once daily. - hydrOXYchloroQUINE (PLAQUENIL) 200 mg tablet - montelukast (SINGULAIR) 10 mg tablet Take 10 mg by mouth daily at bedtime. - predniSONE (DELTASONE) 10 mg tablet Take 10 mg by mouth. Only prn - lidocaine-prilocaine (EMLA) 2.5-2.5 % cream Apply to affected area as needed. - amLODIPine (NORVASC) 2.5 mg tablet Problem List As Of Date 03/13/2024 Noted Resolved Disorder of thyroid, unspecified [E07.9] 04/14/2010 Chest pain [R07.9] 04/14/2010 Obesity [E66.9] 04/14/2010 Glucose intolerance (impaired glucose tolerance*04/14/2010 Hematuria [R31.9] 04/24/2010 Antinuclear factor positive [R76.8] 11/13/2011 Fibromyalgia [M79.7] 11/13/2011 Essential (primary) hypertension [I10] 08/28/2014 LBP (low back pain) [M54.50] 08/28/2014 Graves disease [E05.00] Bilateral primary osteoarthritis of knee [M17.0]02/04/2017 Chronic kidney disease, stage 3 (moderate) [N18*02/04/2017 Fatty (change of) liver, not elsewhere classifi*02/04/2017 Other intervertebral disc degeneration, lumbar *02/04/2017 Other spondylosis, lumbosacral region [M47.897] 02/04/2017 Chronic pain syndrome [G89.4] 02/04/2017 Osteoarthritis of both knees [M17.0] 08/28/2021 Generalized osteoarthrosis, involving multiple *08/28/2021 Inflammatory spondylopathy of lumbar region (HC*08/28/2021 Vitamin D deficiency [E55.9] 10/02/2021 Vision disorder [H53.9] 10/02/2021 Type 2 diabetes mellitus without comp (more content not included)... [facility] Carbon dioxide measurementOr dered By: Liliana Wyman on 03-13-2024 CO2 [Moles/Vol] 28.0 mmol/L 21.0-32.0 [facility] Chloride measurementOrdered By: Liliana Wyman on 03-13-2024 Chloride [Moles/Vol] 107 mmol/L 98-107 [facility] Comprehensive Metabolic Prof ilon 03-13-2024 Albumin [Mass/Vol] 3.5 g/dL Normal 3.2-5.0 [facility] Comment on above: Performed By: #### L 100.0100, L500.4050 #### [facility] [address] [place], [address] Albumin/Globulin [Mass ratio] 1.0 {ratio} Normal 0.9-2.4 [facility] Comment on above: Performed By: #### L 100.0100, L500.4050 #### [facility] [address] [place], [address] ALK P 153 U/L High 45-117 [facility] Comment on above: Performed By: #### L 100.0100, L500.4050 #### [facility] [address] [place], [address] ALT [Catalytic activity/Vol] 22 U/L Normal 13-56 [facility] Comment on above: Performed By: #### L 100.0100, L500.4050 #### [facility] [address] [place], [address] AST [Catalytic activity/Vol] 16 U/L Normal 15-37 [facility] Comment on above: Performed By: #### L 100.0100, L500.4050 #### [facility] [address] [place], [address] Bilirubin [Mass/Vol] 0.40 mg/dL Normal 0.20-1.00 [facility] Comment on above: Result Comment: For patients on eltrombopag therapy, use of Dimension [place] TBIL is not recommended. Performed By: #### L 100.0100, L500.4050 #### [facility] [address] [place], [address] BUN/CRE 13.7 RATIO Normal 10-20 [facility] Comment on above: Performed By: #### L 100.0100, L500.4050 #### [facility] [address] [place], [address] CA,Total 9.0 mg/dL Normal 8.5-10.1 [facility] Comment on above: Performed By: #### L 100.0100, L500.4050 #### [facility] [address] [place], [address] Chloride [Moles/Vol] 107 mmol/L Normal 98-107 [facility] Comment on above: Performed By: #### L 100.0100, L500.4050 #### [facility] [address] [place], [address] CO2 [Moles/Vol] 28.0 mmol/L Normal 21.0-32.0 [facility] Comment on above: Performed By: #### L 100.0100, L500.4050 #### [facility] [address] [place], [address] Creatinine [Mass/Vol] 1.31 mg/dL High 0.55-1.02 [facility] Comment on above: Result Comment: The validity of the calculated GFR GFRAA in patients over 70 years has not been determined. Clinical correlation is essential. Performed By: #### L 100.0100, L500.4050 #### [facility] [address] [place], [address] EST GFR - AA 53 mL/min Low >60 [facility] Comment on above: Result Comment: Afri can Ukrainian GFR Calc Performed By: #### L 100.0100, L500.4050 #### [facility] [address] [place], [address] GAP 4 Low 5-15 [facility] Comment on above: Performed By: #### L 100.0100, L500.4050 #### [facility] [address], [address] GFR/1.73 sq M.predicted among non-blacks MDRD (S/P/Bld) [Vol rate/Area] 44 mL/min/{1.73_m2} Low >60 [facility] Comment on above: Result Comment: Non- GFR Calc Performed By: #### L 100.0100, L500.4050 #### [facility] [address], [address] Globulin (S) [Mass/Vol] 3.5 g/dL Normal 2.2-4.2 [facility] Comment on above: Performed By: #### L 100.0100, L500.4050 #### [facility] [address], [address] Glucose [Mass/Vol] 128 mg/dL High 74-106 [facility] Comment on above: Result Comment: Fast ing Glucose result greater than or equal to 126 mg/dL suggests DIABETES MELLITUS per A.D.A. criteria. Performed By: #### L 100.0100, L500.4050 #### [facility] [address], [address] Potassium [Moles/Vol] 3.8 mmol/L Normal 3.5-5.1 [facility] Comment on above: Performed By: #### L 100.0100, L500.4050 #### [facility] [address] [place], [address] Sodium [Moles/Vol] 139 mmol/L Normal 136-145 [facility] Comment on above: Performed By: #### L 100.0100, L500.4050 #### [facility] [address] [place], [address] T PROT 7.0 g/dL Normal 6.4-8.2 [facility] Comment on above: Performed By: #### L 100.0100, L500.4050 #### [facility] [address] [place], [address] Urea nitrogen [Mass/Vol] 18 mg/dL Normal 7-18 [facility] Comment on above: Performed By: #### L 100.0100, L500.4050 #### [facility] [address] [facility] [place], [address] Eosinophil percentageOrdered By: Liliana Wyman on 03-13-2024 Eosinophils/100 WBC (Bld) 6.0 % High 0-5 [facility] Erythrocyte distribution wid th (RBC) [Ratio]Ordered By: Liliana Wyman on 03-13-2024 Erythrocyte distribution width (RBC) [Entitic vol] 45.1 fL High 35.1-43.9 [facility] Erythrocyte distribution wid th ratioOrdered By: Liliana Wyman on 03-13-2024 Erythrocyte distribution width (RBC) [Ratio] 13.1 % 11.6-14.6 [facility] Estimated glomerular filtrat ion rate (GFR) AmericanOrdered By: Liliana Wyman on 03-13-2024 Estimated GFR (MDRD) Amer 53 mL/min Low >60 [facility] Comment on above: GFR Calc Glomerular filtration rate ( GFR) estimationOrdered By: Liliana Wyman on 03-13-2024 Estimated GFR (MDRD) Non-Af Amer 44 mL/min Low >60 [facility] Comment on above: Non- GFR Calc Glucose measurementOrdered B y: Liliana Wyman on 03-13-2024 Glucose [Mass/Vol] 128 mg/dL High 74-106 [facility] Comment on above: Fasting Glucose resu lt greater than or equal to 126 mg/dL suggests DIABETES MELLITUS per A.D.A. criteria. Hematocrit Auto (Bld) [Volum e fraction]Ordered By: Liliana Wyman on 03-13-2024 Hematocrit (Bld) [Volume fraction] 40.4 % 37-47 [facility] Hemoglobin measurementOrdere d By: Liliana Wyman on 03-13-2024 Hemoglobin (Bld) [Mass/Vol] 12.9 g/dL 12.0-15.0 [facility] Immature granulocytes/100 WB C Auto (Bld)Ordered By: Liliana Wyman on 03-13-2024 Immature granulocytes/100 WBC (Bld) 0.200 % 0.0-0.9 [facility] Comment on above: IG% - Immature Granu locytes (promyelocytes, myelocytes and metamyelocytes) > 1% indicates that a LEFT SHIFT is Present. Laboratory - Chemistry and C hemistry - challengeOrdered By: Liliana Wyman on 03-13-2024 AST [Catalytic activity/Vol] 16 U/L 15-37 [facility] Lymphocytes Auto (Unsp spec) [#/Vol]Ordered By: Liliana Wyman on 03-13-2024 Lymphocytes (Bld) [#/Vol] 1.86 10*3/uL 0.83-4.51 [facility] Lymphocytes/100 WBC Auto (Un sp spec)Ordered By: Liliana Wyman on 03-13-2024 Lymphocytes/100 WBC (Bld) 29.5 % 19-41 [facility] MCV (mean corpuscular volume ) determinationOrdered By: Liliana Wyman on 03-13-2024 MCV (RBC) [Entitic vol] 94.0 fL 81-99 [facility] Mean corpuscular hemoglobin (MCH) determinationOrdered By: Liliana Wyman on 03-13-2024 MCH (RBC) [Entitic mass] 30.0 pg 27.0-32.0 [facility] Mean corpuscular hemoglobin concentration (MCHC) determinationOrdered By: Liliana Wyman on 03-13-2024 MCHC (RBC) [Mass/Vol] 31.9 g/dL Low 32-36 [facility] Mean platelet volume determi nationOrdered By: Liliana Wyman on 03-13-2024 Platelet mean volume (Bld) [Entitic vol] 11.0 fL 6.2-12.0 [facility] Monocyte percentageOrdered B y: Liliana Wyman on 03-13-2024 Monocytes/100 WBC (Bld) 6.2 % 0-10 [facility] Neutrophil percentageOrdered By: Liliana Wyman on 03-13-2024 Neutrophils/100 WBC (Bld) 57.1 % 47-70 [facility] Nucleated red blood cell per centageOrdered By: Liliana Wyman on 03-13-2024 Nucleated RBC/100 WBC (Bld) [Ratio] 0 % 0-5 [facility] Platelet countOrdered By: Michael Wyman on 03-13-2024 Platelets (Bld) [#/Vol] 190 10*3/uL 150-450 [facility] Potassium measurementOrdered By: Liliana Wyman on 03-13-2024 Potassium [Moles/Vol] 3.8 mmol/L 3.5-5.1 [facility] RBC Auto (Bld) [#/Vol]Ordere d By: Liliana Wyman on 03-13-2024 RBC (Bld) [#/Vol] 4.30 10*6/uL 4.2-5.[address] [facility] Serum anion gap measurementO rdered By: Liliana Wyman on 03-13-2024 Anion gap [Moles/Vol] 4 mmol/L Low 5-15 [facility] Serum globulin measurementOr dered By: Liliana Wyman on 03-13-2024 Globulin (S) [Mass/Vol] 3.5 g/dL 2.2-4.2 [facility] Serum or plasma alanine hwang otransferase (ALT) measurementOrdered By: Liliana Wyman on 03-13-2024 ALT [Catalytic activity/Vol] 22 U/L 13-56 [facility] Serum or plasma albumin marylou urement (mass/volume)Ordered By: Liliana Wyman on 03-13-2024 Albumin [Mass/Vol] 3.5 g/dL 3.2-5.0 [facility] Serum or plasma alkaline aissatou sphatase measurementOrdered By: Liliana Wyman on 03-13-2024 ALP [Catalytic activity/Vol] 153 U/L High 45-117 [facility] Serum or plasma calcium marylou urement (mass/volume)Ordered By: Liliana Wyman on 03-13-2024 Calcium [Mass/Vol] 9.0 mg/dL 8.5-10.1 [facility] Serum or plasma creatinine m easurement (mass/volume)Ordered By: Liliana Wyman on 03-13-2024 Creatinine [Mass/Vol] 1.31 mg/dL High 0.55-1.02 [facility] Comment on above: The validity of the calculated GFR & GFRAA in patients over 70 years has not been determined. Clinical correlation is essential. Serum or plasma urea nitroge n measurement (mass/volume)Ordered By: Liliana Wyman on 03-13-2024 Urea nitrogen [Mass/Vol] 18 mg/dL 7-18 [facility] Sodium levelOrdered By: Lynn Wyman on 03-13-2024 Sodium [Moles/Vol] 139 mmol/L 136-145 [facility] Total proteinOrdered By: Alejandro Wyman on 03-13-2024 Protein [Mass/Vol] 7.0 g/dL 6.4-8.2 [facility] White blood cell (WBC) count Ordered By: Liliana Wyman on 03-13-2024 WBC (Bld) [#/Vol] 6.3 10*3/uL 4.4-11.0 [facility] CNOVon 03-08-2024 CNOV Office Visit (DAYANARA ) TARYN SELF ([id number]) 1960 F Date Time Provider Department 03/08/24 10:30 AM TRISTIAN MARTIN During your visit today, we recorded the following information about you: Pulse Respiration Blood pressure Weight 65/minute 16/minute 132/83 143.4 kg Height 1.626 m Tristian Martin PA-C 03/08/2024 10:59 AM Signed PATIENT: Taryn Sandoval [place] : 1960 DATE OF SERVICE: 03/08/2024 REFERRING PRACTITIONER: Jay Esparza MD PRIMARY CARE PROVIDER: Janet Zafar CNP CHIEF COMPLAINT: Patient presents with: Back Pain: Low Pain: Beto knees HISTORY OF PRESENT ILLNESS: Taryn Self is a 63 year old year old female who presents to the clinic today with chief complaint(s) as above. Following up for: low back pain, leg pain, chronic pain, narcotic use Response to treatment recommendations: Medications are helpful. She denies side effects Current primary concern/description: lower back pain/aching Pain Level: 8 /10 Better with: medication, reposition, rest Worse with: standing, walking Numbness/Tingling: [] Yes [x] No Bladder/bowel fxn change: [] Yes [x] No --- Review of Systems HENT: Negative. Eyes: Negative. Cardiovascular: Positive for leg swelling. Respiratory: Negative. Endocrine: Negative. Skin: Negative. Musculoskeletal: Positive for arthritis, back pain, joint pain, myalgias and stiffness. Gastrointestinal: Positive for constipation. Genitourinary: Negative. Neurological: Negative. Psychiatric/Behavioral: The patient has insomnia. 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 In am DULoxetine (CYMBALTA) 60 mg capsule Take 1 capsule by mouth daily at bedtime. oxyCODONE (ROXICODONE) 15 mg immediate release tablet Take 1 tablet by mouth three times a day as needed for pain for up to 30 days. semaglutide 0.25 mg/0.5 mL (0.5 mg/mL) subcutaneous compounded injection Inject subcutaneously one time a week. metFORMIN (GLUCOPHAGE) 1,000 mg tablet lisinopril-hydroCHLOROthiaz mely (ZESTORETIC) 10-12.5 mg per tablet Take 1 tablet by mouth every afternoon. gabapentin (NEURONTIN) 100 mg capsule TAKE 1 CAP BY MOUTH NIGHTLY NEEDED busPIRone (BUSPAR) 5 mg tablet Take 1 tablet by mouth every 12 hours. MOUNJARO 10 mg/0.5 mL pen injector inject 10 mg weekly sq VRAYLAR 1.5 mg capsule Take 1 capsule by mouth every afternoon. JARDIANCE 25 mg tablet Clobetasol Propionate 0.05 % lotn Apply to affected area two times a day as needed. omeprazole (PRILOSEC) 20 mg capsule Take 1 capsule by mouth every afternoon. FARXIGA 10 mg tablet levothyroxine (SYNTHROID) 25 mcg tablet Take 1 tablet by mouth every afternoon. levocetirizine 5 mg tablet TAKE 1 TABLET BY MOUTH EVERY EVENING NEEDED ALLERGY SYMPTOMS levothyroxine (SYNTHROID) 200 mcg tablet Take 1 tablet by mouth every afternoon. metroNIDAZOLE (FLAGYL) 500 mg tablet Take 500 mg by mouth three times daily. mupirocin (BACTROBAN) 2 % ointment Apply to affected area three times daily. leflunomide (ARAVA) 20 mg tablet Take 20 mg by mouth once daily. hydrOXYchloroQUINE (PLAQUENIL) 200 mg tablet montelukast (SINGULAIR) 10 mg tablet Take 10 mg by mouth daily at bedtime. predniSONE (DELTASONE) 10 mg tablet Take 10 mg by mouth. lidocaine-prilocaine (EMLA) 2.5-2.5 % cream Apply to affected area as needed. amLODIPine (NORVASC) 2.5 mg tablet No current facility-administered medications for this visit. OBJECTIVE: VS: BP 132/83 (BP Site: Right Arm, BP Position: Sittin (more content not included)... Normal [facility] Albumin to globulin ratioOrd ered By: Ashley Montiel on 02-16-2024 Albumin/Globulin [Mass ratio] 0.9 {ratio} 0.9-2.4 [facility] Bilirubin, totalOrdered By: Ashley Montiel on 02-16-2024 Bilirubin [Mass/Vol] 0.40 mg/dL 0.20-1.00 [facility] Comment on above: For patients on eltr ombopag therapy, use of Dimension [place] TBIL is not recommended. Blood urea nitrogen (BUN)/cr eatinine ratioOrdered By: Ashley Montiel on 02-16-2024 Urea nitrogen/Creatinine [Mass ratio] 15.3 mg/mg 10-20 [facility] Carbon dioxide measurementOr dered By: Ashley Montiel on 02-16-2024 CO2 [Moles/Vol] 31.0 mmol/L 21.0-32.0 [facility] Chloride measurementOrdered By: Ashley Montiel on 02-16-2024 Chloride [Moles/Vol] 108 mmol/L High 98-107 [facility] Comprehensive Metabolic Prof ilon 02-16-2024 Albumin [Mass/Vol] 3.3 g/dL Normal 3.2-5.0 [facility] Comment on above: Performed By: #### L 500.4050 #### [facility] [address] [place], [place], [id number] Albumin/Globulin [Mass ratio] 0.9 {ratio} Normal 0.9-2.4 [facility] Comment on above: Performed By: #### L [id number] #### [facility] [address] [place], [address] ALK P 142 U/L High 45-117 [facility] Comment on above: Performed By: #### L [id number] #### [facility] [address] [place], [address] ALT [Catalytic activity/Vol] 20 U/L Normal 13-56 [facility] Comment on above: Performed By: #### L [id number] #### [facility] [address] [place], [address] AST [Catalytic activity/Vol] 13 U/L Low 15-37 [facility] Comment on above: Performed By: #### L 500.4050 #### [facility] [address] [place], [address] Bilirubin [Mass/Vol] 0.40 mg/dL Normal 0.20-1.00 [facility] Comment on above: Result Comment: For patients on eltrombopag therapy, use of Dimension [place] TBIL is not recommended. Performed By: #### L 500.4050 #### [facility] [address] [place], [address] BUN/CRE 15.3 RATIO Normal 10-20 [facility] Comment on above: Performed By: #### L 500.4050 #### [facility] [address] [place], [address] CA,Total 9.0 mg/dL Normal 8.5-10.1 [facility] Comment on above: Performed By: #### L 500.4050 #### [facility] [address] [place], [address] Chloride [Moles/Vol] 108 mmol/L High 98-107 [facility] Comment on above: Performed By: #### L 500.4050 #### [facility] [address] [place], [address] CO2 [Moles/Vol] 31.0 mmol/L Normal 21.0-32.0 [facility] Comment on above: Performed By: #### L 500.4050 #### [facility] [address] [place], [address] Creatinine [Mass/Vol] 1.37 mg/dL High 0.55-1.02 [facility] Comment on above: Result Comment: The validity of the calculated GFR GFRAA in patients over 70 years has not been determined. Clinical correlation is essential. Performed By: #### L 500.4050 #### [facility] [address] [place], [address] EST GFR - AA 50 mL/min Low >60 [facility] Comment on above: Result Comment: Afri can Ukrainian GFR Calc Performed By: #### L 500.4050 #### [facility] [address] [place], [address] GAP 1 Low 5-15 [facility] Comment on above: Performed By: #### L 500.4050 #### [facility] [address] [place], [address] GFR/1.73 sq M.predicted among non-blacks MDRD (S/P/Bld) [Vol rate/Area] 42 mL/min/{1.73_m2} Low >60 [facility] Comment on above: Result Comment: Non- GFR Calc Performed By: #### L 500.4050 #### [facility] [address] [place], [address] Globulin (S) [Mass/Vol] 3.5 g/dL Normal 2.2-4.2 [facility] Comment on above: Performed By: #### L 500.4050 #### [facility] [address] [place], [address] Glucose [Mass/Vol] 147 mg/dL High 74-106 [facility] Comment on above: Result Comment: Fast ing Glucose result greater than or equal to 126 mg/dL suggests DIABETES MELLITUS per A.D.A. criteria. Performed By: #### L 500.4050 #### [facility] [address] [place], [address] Potassium [Moles/Vol] 3.9 mmol/L Normal 3.5-5.1 [facility] Comment on above: Performed By: #### L [id number] #### [facility] [address] [place], [place], [id number] Sodium [Moles/Vol] 140 mmol/L Normal 136-145 [facility] Comment on above: Performed By: #### L 500.4050 #### [facility] [address] [place], [place], [id number] T PROT 6.8 g/dL Normal 6.4-8.2 [facility] Comment on above: Performed By: #### L 500.4050 #### [facility] [address] [place], [place], [id number] Urea nitrogen [Mass/Vol] 21 mg/dL High 7-18 [facility] Comment on above: Performed By: #### L 500.4050 #### [facility] [address] [place], [place], [id number] Estimated glomerular filtrat ion rate (GFR) AmericanOrdered By: Ashley Montiel on 02-16-2024 Estimated GFR (MDRD) Amer 50 mL/min Low >60 [facility] Comment on above: GFR Calc Glomerular filtration rate ( GFR) estimationOrdered By: Ashley Montiel on 02-16-2024 Estimated GFR (MDRD) Non-Af Amer 42 mL/min Low >60 [facility] Comment on above: Non- GFR Calc Glucose measurementOrdered B y: Ashley Montiel on 02-16-2024 Glucose [Mass/Vol] 147 mg/dL High 74-106 [facility] Comment on above: Fasting Glucose resu lt greater than or equal to 126 mg/dL suggests DIABETES MELLITUS per A.D.A. criteria. Laboratory - Chemistry and C hemistry - challengeOrdered By: Ashley Montiel on 02-16-2024 AST [Catalytic activity/Vol] 13 U/L Low 15-37 [facility] Potassium measurementOrdered By: Ashley Montiel on 02-16-2024 Potassium [Moles/Vol] 3.9 mmol/L 3.5-5.1 [facility] Serum anion gap measurementO rdered By: Ashley Montiel on 02-16-2024 Anion gap [Moles/Vol] 1 mmol/L Low 5-15 [facility] Serum globulin measurementOr dered By: Ashley Montiel on 02-16-2024 Globulin (S) [Mass/Vol] 3.5 g/dL 2.2-4.2 [facility] Serum or plasma alanine hwang otransferase (ALT) measurementOrdered By: Ashley Montiel on 02-16-2024 ALT [Catalytic activity/Vol] 20 U/L 13-56 [facility] Serum or plasma albumin marylou urement (mass/volume)Ordered By: Ashley Montiel on 02-16-2024 Albumin [Mass/Vol] 3.3 g/dL 3.2-5.0 [facility] Serum or plasma alkaline aissatou sphatase measurementOrdered By: Ashley Montiel on 02-16-2024 ALP [Catalytic activity/Vol] 142 U/L High 45-117 [facility] Serum or plasma calcium marylou urement (mass/volume)Ordered By: Ashley Montiel on 02-16-2024 Calcium [Mass/Vol] 9.0 mg/dL 8.5-10.1 [facility] Serum or plasma creatinine m easurement (mass/volume)Ordered By: Ashley Montiel on 02-16-2024 Creatinine [Mass/Vol] 1.37 mg/dL High 0.55-1.02 [facility] Comment on above: The validity of the calculated GFR & GFRAA in patients over 70 years has not been determined. Clinical correlation is essential. Serum or plasma urea nitroge n measurement (mass/volume)Ordered By: Ashley Montiel on 02-16-2024 Urea nitrogen [Mass/Vol] 21 mg/dL High 7-18 [facility] Sodium levelOrdered By: Ashley Montiel on 02-16-2024 Sodium [Moles/Vol] 140 mmol/L 136-145 [facility] Total proteinOrdered By: Meli Montiel on 02-16-2024 Protein [Mass/Vol] 6.8 g/dL 6.4-8.2 [facility] CBC W/Diff, Automatedon 11-0 Absolute Lymph 1.93 X10 3/uL Normal 0.83-4.51 [facility] Comment on above: Performed By: #### L 100.0100, L500.4050 #### [facility] [address] [place], [address] Absolute Neut 3.7 X10 3/uL Normal 2.0-7.7 [facility] Comment on above: Performed By: #### L 100.0100, L500.4050 #### [facility] [address] [place], [address] Basophils/100 WBC (Bld) 1.4 % High 0-1 [facility] Comment on above: Performed By: #### L 100.0100, L500.4050 #### [facility] [address] [place], [address] Eosinophils/100 WBC (Bld) 7.2 % High 0-5 [facility] Comment on above: Performed By: #### L 100.0100, L500.4050 #### [facility] [address] [place], [address] Erythrocyte distribution width (RBC) [Ratio] 14.1 % Normal 11.6-14.6 [facility] Comment on above: Performed By: #### L 100.0100, L500.4050 #### [facility] [address] [place], [address] Hematocrit (Bld) [Volume fraction] 38.0 % Normal 37-47 [facility] Comment on above: Performed By: #### L 100.0100, L500.4050 #### [facility] [address] [place], [address] Hemoglobin (Bld) [Mass/Vol] 12.0 g/dL Normal 12.0-15.0 [facility] Comment on above: Performed By: #### L 100.0100, L500.4050 #### [facility] [address] [place], [address] IG% 0.200 Normal 0.0-0.9 [facility] Comment on above: Result Comment: IG% - Immature Granulocytes (promyelocytes, myelocytes and metamyelocytes) > 1% indicates that a LEFT SHIFT is Present. Performed By: #### L 100.0100, L500.4050 #### [facility] [address] [place], [address] Lymphocytes/100 WBC (Bld) 29.0 % Normal 19-41 [facility] Comment on above: Performed By: #### L 100.0100, L500.4050 #### [facility] [address] [place], [address] MCH (RBC) [Entitic mass] 29.6 pg Normal 27.0-32.0 [facility] Comment on above: Performed By: #### L 100.0100, L500.4050 #### [facility] [address] [place], [address] MCHC (RBC) [Mass/Vol] 31.6 g/dL Low 32-36 [facility] Comment on above: Performed By: #### L 100.0100, L500.4050 #### [facility] [address] [place], [address] MCV (RBC) [Entitic vol] 93.8 fL Normal 81-99 [facility] Comment on above: Performed By: #### L 100.0100, L500.4050 #### [facility] [address] [place], [address] Monocytes/100 WBC (Bld) 7.1 % Normal 0-10 [facility] Comment on above: Performed By: #### L 100.0100, L500.4050 #### [facility] [address] [place], [address] Neutrophils/100 WBC (Bld) 55.1 % Normal 47-70 [facility] Comment on above: Performed By: #### L 100.0100, L500.4050 #### [facility] [address] [place], [address] Nucleated RBC (Bld) [#/Vol] 0 10*3/uL Normal 0-5 [facility] Comment on above: Performed By: #### L 100.0100, L500.4050 #### [facility] [address] [place], [address] Platelet mean volume (Bld) [Entitic vol] 11.2 fL Normal 6.2-12.0 [facility] Comment on above: Performed By: #### L 100.0100, L500.4050 #### [facility] [address] [place], [address] Platelets (Bld) [#/Vol] 215 10*3/uL Normal 150-450 [facility] Comment on above: Performed By: #### L 100.0100, L500.4050 #### [facility] [address] [place], [address] RBC (Bld) [#/Vol] 4.05 10*6/uL Low 4.2-5.[address] [facility] Comment on above: Performed By: #### L 100.0100, L500.4050 #### [facility] [address] [place], [address] RDW SD 48.3 fl High 35.1-43.9 [facility] Comment on above: Performed By: #### L 100.0100, L500.4050 #### [facility] [address] [place], [address] WBC (Bld) [#/Vol] 6.7 10*3/uL Normal 4.4-11.0 [facility] Comment on above: Performed By: #### L 100.0100, L500.4050 #### [facility] [address] [place], [address] Comprehensive Metabolic Prof ilon 12-23-2023 Albumin [Mass/Vol] 3.4 g/dL Normal 3.2-5.0 [facility] Comment on above: Performed By: #### L 100.0100, L500.4050 #### [facility] [address] [place], [address] Albumin/Globulin [Mass ratio] 1.0 {ratio} Normal 0.9-2.4 [facility] Comment on above: Performed By: #### L 100.0100, L500.4050 #### [facility] [address] [place], [address] ALK P 137 U/L High 45-117 [facility] Comment on above: Performed By: #### L 100.0100, L500.4050 #### [facility] [address] [place], [address] ALT [Catalytic activity/Vol] 26 U/L Normal 13-56 [facility] Comment on above: Performed By: #### L 100.0100, L500.4050 #### [facility] [address] [place], [address] AST [Catalytic activity/Vol] 25 U/L Normal 15-37 [facility] Comment on above: Performed By: #### L 100.0100, L500.4050 #### [facility] [address] [place], [address] Bilirubin [Mass/Vol] 0.50 mg/dL Normal 0.20-1.00 [facility] Comment on above: Result Comment: For patients on eltrombopag therapy, use of Dimension [place] TBIL is not recommended. Performed By: #### L 100.0100, L500.4050 #### [facility] [address] [place], [address] BUN/CRE 19.3 RATIO Normal 10-20 [facility] Comment on above: Performed By: #### L 100.0100, L500.4050 #### [facility] [address] [place], [address] CA,Total 8.9 mg/dL Normal 8.5-10.1 [facility] Comment on above: Performed By: #### L 100.0100, L500.4050 #### [facility] [address] [place], [address] Chloride [Moles/Vol] 108 mmol/L High 98-107 [facility] Comment on above: Performed By: #### L 100.0100, L500.4050 #### [facility] [address] [place], [address] CO2 [Moles/Vol] 27.0 mmol/L Normal 21.0-32.0 [facility] Comment on above: Performed By: #### L 100.0100, L500.4050 #### [facility] [address] [place], [address] Creatinine [Mass/Vol] 1.66 mg/dL High 0.55-1.02 [facility] Comment on above: Result Comment: The validity of the calculated GFR GFRAA in patients over 70 years has not been determined. Clinical correlation is essential. Performed By: #### L 100.0100, L500.4050 #### [facility] [address] [place], [address] EST GFR - AA 40 mL/min Low >60 [facility] Comment on above: Result Comment: Afri can Ukrainian GFR Calc Performed By: #### L 100.0100, L500.4050 #### [facility] [address] [place], [address] GAP 3 Low 5-15 [facility] Comment on above: Performed By: #### L 100.0100, L500.4050 #### [facility] [address] [place], [address] GFR/1.73 sq M.predicted among non-blacks MDRD (S/P/Bld) [Vol rate/Area] 33 mL/min/{1.73_m2} Low >60 [facility] Comment on above: Result Comment: Non- GFR Calc Performed By: #### L 100.0100, L500.4050 #### [facility] [address] [place], [address] Globulin (S) [Mass/Vol] 3.4 g/dL Normal 2.2-4.2 [facility] Comment on above: Performed By: #### L 100.0100, L500.4050 #### [facility] [address] [place], [address] Glucose [Mass/Vol] 165 mg/dL High 74-106 [facility] Comment on above: Result Comment: Fast ing Glucose result greater than or equal to 126 mg/dL suggests DIABETES MELLITUS per A.D.A. criteria. Performed By: #### L 100.0100, L500.4050 #### [facility] [address] [place], [address] Potassium [Moles/Vol] 3.9 mmol/L Normal 3.5-5.1 [facility] Comment on above: Performed By: #### L 100.0100, L500.4050 #### [facility] [address] [place], [address] Sodium [Moles/Vol] 138 mmol/L Normal 136-145 [facility] Comment on above: Performed By: #### L 100.0100, L500.4050 #### [facility] [address] [place], [address] T PROT 6.8 g/dL Normal 6.4-8.2 [facility] Comment on above: Performed By: #### L 100.0100, L500.4050 #### [facility] [address] [place], [address] Urea nitrogen [Mass/Vol] 32 mg/dL High 7-18 [facility] Comment on above: Performed By: #### L 100.0100, L500.4050 #### [facility] [address] 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 - DULoxetine (CYMBALTA) 30 mg capsule Take 1 capsule by mouth once daily. In am - DULoxetine (CYMBALTA) 60 mg capsule Take 1 capsule by mouth daily at bedtime. - semaglutide 0.25 mg/0.5 mL (0.5 mg/mL) subcutaneous compounded injection Inject subcutaneously one time a week. - metFORMIN (GLUCOPHAGE) 1,000 mg tablet - lisinopril-hydroCHLOROthiaz mely (ZESTORETIC) 10-12.5 mg per tablet Take 1 tablet by mouth every afternoon. - gabapentin (NEURONTIN) 100 mg capsule TAKE 1 CAP BY MOUTH NIGHTLY NEEDED - busPIRone (BUSPAR) 5 mg tablet Take 1 tablet by mouth every 12 hours. - MOUNJARO 10 mg/0.5 mL pen injector inject 10 mg weekly sq - VRAYLAR 1.5 mg capsule Take 1 capsule by mouth every afternoon. - JARDIANCE 25 mg tablet - Clobetasol Propionate 0.05 % lotn Apply to affected area two times a day as needed. - omeprazole (PRILOSEC) 20 mg capsule Take 1 capsule by mouth every afternoon. - FARXIGA 10 mg tablet - levothyroxine (SYNTHROID) 25 mcg tablet Take 1 tablet by mouth every afternoon. - levocetirizine 5 mg tablet TAKE 1 TABLET BY MOUTH EVERY EVENING NEEDED ALLERGY SYMPTOMS - levothyroxine (SYNTHROID) 200 mcg tablet Take 1 tablet by mouth every afternoon. - metroNIDAZOLE (FLAGYL) 500 mg tablet Take 500 mg by mouth three times daily. - mupirocin (BACTROBAN) 2 % ointment Apply to affected area three times daily. - leflunomide (ARAVA) 20 mg tablet Take 20 mg by mouth once daily. - hydrOXYchloroQUINE (PLAQUENIL) 200 mg tablet - montelukast (SINGULAIR) 10 mg tablet Take 10 mg by mouth daily at bedtime. - predniSONE (DELTASONE) 10 mg tablet Take 10 mg by mouth. - lidocaine-prilocaine (EMLA) 2.5-2.5 % cream Apply to affected area as needed. - amLODIPine (NORVASC) 2.5 mg tablet Problem List As Of Date 12/14/2023 Noted Resolved Disorder of thyroid, unspecified [E07.9] 04/14/2010 Chest pain [R07.9] 04/14/2010 Obesity [E66.9] 04/14/2010 Glucose intolerance (impaired glucose tolerance*04/14/2010 Hematuria [R31.9] 04/24/2010 Antinuclear factor positive [R76.8] 11/13/2011 Fibromyalgia [M79.7] 11/13/2011 Essential (primary) hypertension [I10] 08/28/2014 LBP (low back pain) [M54.50] 08/28/2014 Graves disease [E05.00] Bilateral primary osteoarthritis of knee [M17.0]02/04/2017 Chronic kidney disease, stage 3 (moderate) [N18*02/04/2017 Fatty (change of) liver, not elsewhere classifi*02/04/2017 Other intervertebral disc degeneration, lumbar *02/04/2017 Other spondylosis, lumbosacral region [M47.897] 02/04/2017 Chronic pain syndrome [G89.4] 02/04/2017 Osteoarthritis of both knees [M17.0] 08/28/2021 Generalized osteoarthrosis, involving multiple *08/28/2021 Inflammatory spondylopathy of lumbar region (HC*08/28/2021 Vitamin D deficiency [E55.9] 10/02/2021 Vision disorder [H53.9] 10/02/2021 Type 2 diabetes mellitus without complications *07/29/2021 Sinusitis [J32.9] 10/02/2021 Seasonal allergies [J30.2] 10/02/2021 Presence of other specified functional implants*03/02/2017 Renal failure [N19] 10/02/2021 Obstructive sleep apnea syndrome [G47.33] 10/02/2021 Osteoarthritis of knee [M17.9] 06/14/2018 Pain of foot [M79.673] 10/02/2021 Prediabetes [R73.03] 10/02/2021 Fibromyositis [M79.7] 03/02/2017 Foot drop, right [M21.371] 03/05/2015 Hypercholesterolemia [E78.00] 10/02/2021 Mitral valve prolapse [I34.1] 10/02/2021 Back problem [M53.9] 10/02/2021 Displacement of lumbar intervertebral disc with*10/02/2021 Edema of both legs [R60.0] 08/22/2019 Encounter for long-term (current) use of high-r*03/24/2016 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 [facility] CNOVon 12-07-2023 CNOV Office Visit (DAYANARA ) TARYN SELF ([id number]) 1960 F Date Time Provider Department 12/07/23 10:30 AM JAY ESPARZA During your visit today, we recorded the following information about you: Pulse Respiration Blood pressure Weight 70/minute 16/minute 144/66 144.5 kg Height 1.626 m Jay Esparza MD 12/07/2023 10:42 AM Signed Sadia was used to dictate this note and therefore there may be some typographical errors. I attest to the fact that I spent a total of 16 min with the patient to include: Face to face time and non face to face time such as: Reviewing test's, reviewing medical records, reviewing imaging studies, ordering tests, etc. The patient was last seen on 09/07/2023. Treatment plan at that time included the following: Continue on combination Cymbalta, Zanaflex, and oxycodone, continue to be as active as possible, continue use of spinal cord stimulator. These medications have been prescribed by Dr. Osorio and her staff for quite some time. She returns today for follow-up visit. PE: Alert and oriented no acute distress. Mood and affect within normal limits. Vital signs as indicated. Slow deliberate gait nonantalgic. Dx: Lumbar DDD, lumbar foraminal stenosis, lumbar DJD, lumbar facet arthropathy, lumbar spondylosis, low back pain, lumbar radiculitis, bilateral knee osteoarthritis and bilateral knee pain, gait disturbance, right-sided foot drop, status post spinal cord stimulator, hypertension, hypercholesterolemia, mitral prolapse, obstructive sleep apnea, stage III renal disease, diabetes with diabetic neuropathy, neuropathic pain, chronic pain syndrome, chronic opioid usage. Patient is on the above analgesic regimen. Patient denies any systemic side effects. Patient believes the pain meds have helped (as indicated by VAS). Patient has signed Medication Management Agreement and Informed Consent Form (contract). I have also utilized the Intractable Pain and Drug Prescription Checklist as promulgated by [facility]. Furthermore, I have adhered to the [facility] Administrative Code 4731-11. The medication clearly improves this patient's functionality and quality of life as evidence by improved social, recreational activities. There is no evidence of any: drug abuse, drug addiction nor drug diversion. The patient has never called in early for a refill, is not particularly focused on pain medication, has never shown up in our office unexpectedly without appointment, nor called in stating a lost prescription. 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 The patient has been informed that the analgesics are potentially addicting and need to be taken strictly as prescribed. I have checked an OARRS on this patient which came back as expected. The patient has received an opioid education handout and filled out an opioid screener (SOAPP). I have had the patient submit a random urine drug screen AND the patient does have biological markers which would corroborate and substantiate chronic pain (see prior imaging studies). Additionally I did discuss Narcan with the patient and informed the patient that Narcan is now available at their pharmacy if they so request. Plan: As above, patient was last seen on 09/07/2023. Treatment plan at that time included the following: Continue on combination Cymbalta, Zanaflex, and oxycodone, continue to be as active as possible, continue use of spinal cord stimulator. These medications have been prescribed by Dr. Osorio and her staff for quite some time. Urine drug screen updated Patient continues to do quite well on combination of Cymbalta, Zanaflex, and oxycodone. She is quite active and functional. She will follow-up in 3 months with Tristian or Brody. 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 FLEX 23, URINE [[id number]] Order #: [id number] FUTURE TOXASSURE? FLEX 23, URINE [[id number]] Order #: [id number] DULoxetine (CYMBALTA) 30 mg capsuleTake 1 capsule by mouth once daily. In amDisp: 30 capsuleRfl: 0 DULoxetine (CYMBALTA) 60 mg capsuleTake 1 capsule (more content not included)... Normal [facility] CBC W Auto Differential pane l (Bld)on 09-11-2023 Basophils (Bld) [#/Vol] 0.08 10*3/uL [facility] Basophils/100 WBC (Bld) 1.2 % 0.0 - 2.0 % [facility] Eosinophils (Bld) [#/Vol] 0.38 10*3/uL [facility] Eosinophils/100 WBC (Bld) 5.9 % 0.0 - 6.0 % [facility] Erythrocyte distribution width (RBC) [Ratio] 12.8 % 11.5 - 14.5 % [facility] Hematocrit (Bld) [Volume fraction] 43.4 % 36.0 - 46.0 % [facility] Hemoglobin (Bld) [Mass/Vol] 14.2 g/dL 12.0 - 16.0 g/dL [facility] Immature granulocytes (Bld) [#/Vol] 0.01 10*3/uL [facility] Immature granulocytes/100 WBC (Bld) 0.2 % 0.0 - 0.9 % [facility] Comment on above: Immature Granulocyte Count (IG) includes promyelocytes, myelocytes and metamyelocytes but does not include bands. Percent differential counts (%) should be interpreted in the context of the absolute cell counts (cells/UL). Lymphocytes (Bld) [#/Vol] 1.95 10*3/uL [facility] Lymphocytes/100 WBC (Bld) 30.4 % 13.0 - 44.0 % [facility] MCH (RBC) [Entitic mass] 29.6 pg 26.0 - 34.0 pg [facility] MCHC (RBC) [Mass/Vol] 32.7 g/dL 32.0 - 36.0 g/dL [facility] MCV (RBC) [Entitic vol] 90 fL 80 - 100 fL [facility] Monocytes (Bld) [#/Vol] 0.42 10*3/uL [facility] Monocytes/100 WBC (Bld) 6.6 % 2.0 - 10.0 % [facility] Neutrophils (Bld) [#/Vol] 3.57 10*3/uL [facility] Comment on above: Percent differential counts (%) should be interpreted in the context of the absolute cell counts (cells/uL). Neutrophils/100 WBC (Bld) 55.7 % 40.0 - 80.0 % [facility] Nucleated RBC/100 WBC (Bld) [Ratio] 0.0 % [facility] Platelets (Bld) [#/Vol] 173 10*3/uL [facility] RBC (Bld) [#/Vol] 4.80 10*6/uL [facility] WBC (Bld) [#/Vol] 6.4 10*3/uL [facility] Basophils (Bld) [#/Vol] 0.08 x10*3/uL Normal 0.00-0.10 [facility] Comment on above: Performed By: #### 5 7021-8 #### VON WASHBURN ([id number]) [facility] ([facility]) [address] [place] [address] 57330 Basophils/100 WBC (Bld) 1.2 % Normal 0.0-2.0 [facility] Comment on above: Performed By: #### 7021-8 #### VON WASHBURN ([id number]) [facility] ([facility]) [address] [place] [address] 52711 Eosinophils (Bld) [#/Vol] 0.38 x10*3/uL Normal 0.00-0.70 [facility] Comment on above: Performed By: #### 5 7021-8 #### VON WASHBURN ([id number]) [facility] ([facility]) [address] [place] [address] 81249 Eosinophils/100 WBC (Bld) 5.9 % Normal 0.0-6.0 [facility] Comment on above: Performed By: #### 7021-8 #### VON WASHBURN ([id number]) [facility] ([facility]) [address] [place] [address] 74874 Erythrocyte distribution width (RBC) [Ratio] 12.8 % Normal 11.5-14.5 [facility] Comment on above: Performed By: #### 5 7021-8 #### VON WASHBURN ([id number]) [facility] ([facility]) [address] [place] [address] 37597 Hematocrit (Bld) [Volume fraction] 43.4 % Normal 36.0-46.0 [facility] Comment on above: Performed By: #### 5 7021-8 #### VON WASHBURN ([id number]) [facility] ([facility]) [address] [place] [address] 77693 Hemoglobin (Bld) [Mass/Vol] 14.2 g/dL Normal 12.0-16.0 [facility] Comment on above: Performed By: #### 7021-8 #### VON WASHBURN ([id number]) [facility] ([facility]) [address] [place] [address] 31938 Immature granulocytes (Bld) [#/Vol] 0.01 x10*3/uL Normal 0.00-0.70 [facility] Comment on above: Performed By: #### 5 7021-8 #### VON WASHBURN ([id number]) [facility] ([facility]) [address] [place] [address] 37697 Immature granulocytes/100 WBC (Bld) 0.2 % Normal 0.0-0.9 [facility] Comment on above: Result Comment: Zeinab ture Granulocyte Count (IG) includes promyelocytes, myelocytes and metamyelocytes but does not include bands. Percent differential counts (%) should be interpreted in the context of the absolute cell counts (cells/UL). Performed By: #### 5 7021-8 #### VON WASHBURN ([id number]) [facility] ([facility]) [address] [place] [address] 27896 Lymphocytes (Bld) [#/Vol] 1.95 x10*3/uL Normal 1.20-4.80 [facility] Comment on above: Performed By: #### 5 7021-8 #### VON WASHBURN ([id number]) [facility] ([facility]) [address] [place] [address] 24508 Lymphocytes/100 WBC (Bld) 30.4 % Normal 13.0-44.0 [facility] Comment on above: Performed By: #### 5 7021-8 #### VON WASHBURN ([id number]) [facility] ([facility]) [address] [place] [address] 11206 MCH (RBC) [Entitic mass] 29.6 pg Normal 26.0-34.0 [facility] Comment on above: Performed By: #### 5 7021-8 #### VON WASHBURN ([id number]) [facility] ([facility]) [address] [place] [address] 95078 MCHC (RBC) [Mass/Vol] 32.7 g/dL Normal 32.0-36.0 [facility] Comment on above: Performed By: #### 5 7021-8 #### VON WASHBURN ([id number]) [facility] ([facility]) [address] [place] [address] 72262 MCV (RBC) [Entitic vol] 90 fL Normal 80-100 [facility] Comment on above: Performed By: #### 5 7021-8 #### VON WASHBURN ([id number]) [facility] ([facility]) [address] [place] [address] 42941 Monocytes (Bld) [#/Vol] 0.42 x10*3/uL Normal 0.10-1.00 [facility] Comment on above: Performed By: #### 5 7021-8 #### VON WASHBURN ([id number]) [facility] ([facility]) [address] [place] [address] 41275 Monocytes/100 WBC (Bld) 6.6 % Normal 2.0-10.0 [facility] Comment on above: Performed By: #### 5 7021-8 #### VON WASHBURN ([id number]) [facility] ([facility]) [address] [place] [address] 79663 Neutrophils (Bld) [#/Vol] 3.57 x10*3/uL Normal 1.20-7.70 [facility] Comment on above: Result Comment: Perc ent differential counts (%) should be interpreted in the context of the absolute cell counts (cells/uL). Performed By: #### 5 7021-8 #### VON WASHBURN ([id number]) [facility] ([facility]) [address] [place] [address] 03017 Neutrophils/100 WBC (Bld) 55.7 % Normal 40.0-80.0 [facility] Comment on above: Performed By: #### 5 7021-8 #### VON WASHBURN ([id number]) [facility] ([facility]) [address] [place] [address] 46086 Nucleated RBC/100 WBC (Bld) [Ratio] 0.0 /100 WBCs Normal 0.0-0.0 [facility] Comment on above: Performed By: #### 5 7021-8 #### VON WASHBURN ([id number]) [facility] ([facility]) [address] [place] [address] 45233 Platelets (Bld) [#/Vol] 173 x10*3/uL Normal 150-450 [facility] Comment on above: Performed By: #### 5 7021-8 #### VON WASHBURN ([id number]) [facility] ([facility]) [address] [place] [address] RBC (Bld) [#/Vol] 4.80 x10*6/uL Normal 4.00-5.[address] [facility] Comment on above: Performed By: #### 5 7021-8 #### VON WASHBURN ([id number]) [facility] ([facility]) [address] [place] [address] WBC (Bld) [#/Vol] 6.4 x10*3/uL Normal 4.4-11.3 [facility] Comment on above: Performed By: #### 5 7021-8 #### VON WASHBURN ([id number]) [facility] ([facility]) [address] [place] [address] Comprehensive metabolic 2000 panelon 09-11-2023 Albumin BCP dye [Mass/Vol] 3.9 g/dL 3.4 - 5.0 g/dL [facility] ALP [Catalytic activity/Vol] 134 U/L 33 - 136 U/L [facility] ALT With P-5'-P [Catalytic activity/Vol] 22 U/L 7 - 45 U/L [facility] Comment on above: Patients treated wit h Sulfasalazine may generate falsely decreased results for ALT. Anion gap [Moles/Vol] 14 mmol/L 10 - 2 0 mmol/L [facility] AST With P-5'-P [Catalytic activity/Vol] 27 U/L 9 - 39 U/L [facility] Bilirubin [Mass/Vol] 0.4 mg/dL 0.0 - 1 .2 mg/dL [facility] Calcium [Mass/Vol] 9.4 mg/dL 8.6 - 10. 3 mg/dL [facility] Chloride [Moles/Vol] 100 mmol/L 98 - 10 7 mmol/L [facility] CO2 [Moles/Vol] 25 mmol/L 21 - 32 mmol/L [facility] Creatinine [Mass/Vol] 1.20 mg/dL High 0.50 - 1.05 mg/dL [facility] GFR/1.73 sq M.predicted among non-blacks MDRD (S/P/Bld) [Vol rate/Area] 52 mL/min/{1.73_m2} Low - PINF [facility] Comment on above: Calculations of navin mated GFR are performed using the 2020 CKD-EPI Study Refit equation without the race variable for the IDMS-Traceable creatinine methods. https://jasn.asnjournals.org/content/early//ASN.69946 46299 Glucose [Mass/Vol] 225 mg/dL High 74 - 99 mg/dL [facility] Interpretation and review of laboratory results Abnormal [facility] Potassium [Moles/Vol] 4.4 mmol/L 3.5 - 5.3 mmol/L [facility] Protein [Mass/Vol] 6.6 g/dL 6.4 - 8.2 g/dL [facility] Sodium [Moles/Vol] 135 mmol/L Low 136 - 145 mmol/L [facility] Urea nitrogen [Mass/Vol] 25 mg/dL High 6 - 23 mg/dL [facility] Albumin BCP dye [Mass/Vol] 3.9 g/dL Normal 3.4-5.0 [facility] Comment on above: Performed By: #### 2 4323-8 #### VON WASHBURN ([id number]) [facility] ([facility]) [address] [place] [address] ALP [Catalytic activity/Vol] 134 U/L Normal 33-136 [facility] Comment on above: Performed By: #### 2 4323-8 #### VON WASHBURN ([id number]) [facility] ([facility]) [address] [place] [address] ALT With P-5'-P [Catalytic activity/Vol] 22 U/L Normal 7-45 [facility] Comment on above: Result Comment: Gissel ents treated with Sulfasalazine may generate falsely decreased results for ALT. Performed By: #### 2 4323-8 #### VON WASHBURN ([id number]) [facility] ([facility]) [address] [place] [address] Anion gap [Moles/Vol] 14 mmol/L Normal 10-20 [facility] Comment on above: Performed By: #### 2 4323-8 #### VON WASHBURN ([id number]) [facility] ([facility]) [address] [place] [address] AST With P-5'-P [Catalytic activity/Vol] 27 U/L Normal 9-39 [facility] Comment on above: Performed By: #### 2 4323-8 #### VON WASHBURN ([id number]) [facility] ([facility]) [address] [place] [address] Bilirubin [Mass/Vol] 0.4 mg/dL Normal 0.0-1.[address] [facility] Comment on above: Performed By: #### 2 4323-8 #### VON WASHBURN ([id number]) [facility] ([facility]) [address] [place] [address] Calcium [Mass/Vol] 9.4 mg/dL Normal 8.6-10.3 [facility] Comment on above: Performed By: #### 2 4323-8 #### VON WASHBURN ([id number]) [facility] ([facility]) [address] [place] [address] Chloride [Moles/Vol] 100 mmol/L Normal 98-[address] [facility] Comment on above: Performed By: #### 2 4323-8 #### VON WASHBURN ([id number]) [facility] ([facility]) [address] [place] [address] CO2 [Moles/Vol] 25 mmol/L Normal 21-32 [facility] Comment on above: Performed By: #### 2 4323-8 #### VON WASHBURN ([id number]) [facility] ([facility]) [facility] [place] [address] Creatinine [Mass/Vol] 1.20 mg/dL High 0.50-1.05 [facility] Comment on above: Performed By: #### 2 4323-8 #### VON WASHBURN ([id number]) [facility] ([facility]) [address] [place] [address] 54398 Glomerular filtration rate/1.73 sq M.predicted 52 mL/min/1.73m*2 Low >60 [facility] Comment on above: Result Comment: Calc ulations of estimated GFR are performed using the 2020 CKD-EPI Study Refit equation without the race variable for the IDMS-Traceable creatinine methods. https://jasn.asnjournals.org/content/early//ASN.29086 29928 Performed By: #### 2 432-8 #### VON WASHBURN ([id number]) [facility] ([facility]) [address] [place] [address] 89819 Glucose [Mass/Vol] 225 mg/dL High 74-99 [facility] Comment on above: Performed By: #### 2 432-8 #### VON WASBHURN ([id number]) [facility] ([facility]) [address] [place] [address] 95655 Potassium [Moles/Vol] 4.4 mmol/L Normal 3.5-5.3 [facility] Comment on above: Performed By: #### 2 4323-8 #### VON WASH[place]URN ([id number]) [facility] ([facility]) [address] [place] [address] 58853 Protein [Mass/Vol] 6.6 g/dL Normal 6.4-8.2 [facility] Comment on above: Performed By: #### 2 4323-8 #### VON WASH[place]URN ([id number]) [facility] ([facility]) [address] [place] [address] 01212 Sodium [Moles/Vol] 135 mmol/L Low 136-145 [facility] Comment on above: Performed By: #### 2 4323-8 #### VON WASHBURN ([id number]) [facility] ([facility]) [address] [place] [address] Urea nitrogen [Mass/Vol] 25 mg/dL High 6-23 [facility] Comment on above: Performed By: #### 2 4323-8 #### VON WASHBURN ([id number]) [facility] ([facility]) [address] [place] [address] ECG 12-LEADon 09-11-2023 ECG 12-LEAD Ventricular Rate 68 Atrial Rate 68 P-R Interval 160 QRS Duration 80 Q-T Interval 384 QTC Calculation(Bazett) 408 P Beatrice 7 R Beatrice 48 T Beatrice 18 QRS Count 11 Q Onset 218 P Onset 138 P Offset 193 T Offset 410 QTC Fredericia 400 Diagnosis Normal sinus rhythm Low voltage QRS Cannot rule out Inferior infarct , age undetermined Abnormal ECG No previous ECGs available See ED provider note for full interpretation and clinical correlation Confirmed by Sydni Corral ([id number]) on 09/13/2023 9:53:22 PM Normal [facility] Lactateon 09-11-2023 Lactate [Moles/Vol] 2.0 mmol/L 0.4 - 2. 0 mmol/L [facility] Lactate [Moles/Vol] 2.0 mmol/L Normal 0.4-2.0 [facility] Comment on above: Order Comment: Venip uncture immediately after or during the administration of Metamizole may lead to falsely low results. Testing should be performed immediately prior to Metamizole dosing. Performed By: #### 2 524-7 #### VON WASHBURN ([id number]) [facility] ([facility]) [address] [place], [place] [id number] Lactate [Moles/Vol]on 2023 Interpretation and review of laboratory results Normal [facility] Venipuncture immedia tely after or during the administration of Metamizole may lead to falsely low results. Testing should be performed immediately prior to Metamizole dosing. [facility] Lipaseon 09-11-2023 Lipase [Catalytic activity/Vol] 42 U/L 9 - 82 U/L [facility] Lipase [Catalytic activity/V ol]on 09-11-2023 Interpretation and review of laboratory results Normal [facility] Venipuncture immedia tely after or during the administration of Metamizole may lead to falsely low results. Testing should be performed immediately prior to Metamizole dosing. [facility] Triacylglycerol lipaseon Lipase [Catalytic activity/Vol] 42 U/L Normal [facility] Comment on above: Order Comment: Venip uncture immediately after or during the administration of Metamizole may lead to falsely low results. Testing should be performed immediately prior to Metamizole dosing. Performed By: #### 3 040-3 #### LONGORIA MADDISON ([id number]) [facility] ([facility]) [address] [place] [address] Urinalysis complete W Reflex Culture panel (U)on 09-11-2023 Appearance (U) Clear Clear [facility] Bilirubin (U) [Mass/Vol] Negative NEGATIVE [facility] Color (U) Colorless Abnormal Light[place] ow, Yellow, Dark-Yello w [facility] Glucose Auto test strip (U) [Mass/Vol] Normal Normal mg/dL [facility] Interpretation and review of laboratory results Abnormal [facility] Ketones (U) [Mass/Vol] Negative NEGAT EDWARD mg/dL [facility] Leukocyte esterase Auto test strip Ql (U) Negative NEGATIVE [facility] Nitrite Auto test strip Ql (U) Negative NEGATIVE [facility] pH (U) 6.5 [pH] 5.0, 5.5, 6.0, 6.5, 7.0, 7.5, 8.0 [facility] Protein (U) [Mass/Vol] Negative NEGAT EDWARD, 10 (TRACE), 20 (TRACE) mg/dL [facility] RBC (U) [#/Vol] Negative NEGATIVE [facility] Specific gravity (U) [Rel density] 1.008 1.005 - 1.035 [facility] Urobilinogen (U) [Mass/Vol] Normal Normal mg/dL [facility] Appearance (U) Clear Normal Clear [facility] Comment on above: Performed By: #### 5 8077-9 #### VON WASHBURN ([id number]) [facility] ([facility]) [address] [place] [address] 03404 Bilirubin (U) [Mass/Vol] Negative Normal NEGATIVE [facility] Comment on above: Performed By: #### 5 8077-9 #### VON WASHBURN ([id number]) [facility] ([facility]) [address] [place] [address] 69157 Color (U) Colorless Normal [place] ow, Yellow, Dark-Yello w [facility] Comment on above: Performed By: #### 5 8077-9 #### VON WASHBURN ([id number]) [facility] ([facility]) [address] [place] [address] 62529 Glucose Auto test strip (U) [Mass/Vol] Normal Normal Normal [facility] Comment on above: Performed By: #### 5 8077-9 #### VON WASHBURN ([id number]) [facility] ([facility]) [address] [place], [place] [address] Ketones (U) [Mass/Vol] Negative Normal NEGATIVE [facility] Comment on above: Performed By: #### 5 8077-9 #### VON WASHBURN ([id number]) [facility] ([facility]) [address] [place] [address] 26428 Leukocyte esterase Auto test strip Ql (U) Negative Normal NEGATIVE [facility] Comment on above: Performed By: #### 5 8077-9 #### VON WASHBURN ([id number]) [facility] ([facility]) [address] [place] [address] 31331 Nitrite Auto test strip Ql (U) Negative Normal NEGATIVE [facility] Comment on above: Performed By: #### 5 8077-9 #### VON WASHBURN ([id number]) [facility] ([facility]) [address] [place] [address] pH (U) 6.5 [pH] Normal 5.0, 5.5, 6.0, 6.5, 7.0, 7.5, 8.0 [facility] Comment on above: Performed By: #### 5 8077-9 #### VON WASHBURN ([id number]) [facility] ([facility]) [address] [place] [address] Protein (U) [Mass/Vol] Negative Normal NEGAT EDWARD, 10 (TRACE), 20 (TRACE) [facility] Comment on above: Performed By: #### 5 8077-9 #### VON WASHBURN ([id number]) [facility] ([facility]) [address] [place] [address] RBC (U) [#/Vol] Negative Normal NEGATIVE [facility] Comment on above: Performed By: #### 5 8077-9 #### VON WASHBURN ([id number]) [facility] ([facility]) [address] [place] [address] Specific gravity (U) [Rel density] 1.008 Normal 1.005-1.[address] [place] [address] Comment on above: Performed By: #### 5 8077-9 #### VON WASHBURN ([id number]) [facility] ([facility]) [address] [place] [address] Urobilinogen (U) [Mass/Vol] Normal Normal Normal [facility] Comment on above: Performed By: #### 5 8077-9 #### VON WASHBURN ([id number]) [facility] ([facility]) [address] [place] [address] XR CHEST 1 VIEWon 09-11-2023 XR CHEST 1 VIEW Interpreted By: Alexander Hook, STUDY: XR CHEST 1 VIEW; 09/11/2023 2:25 pm INDICATION: Signs/Symptoms:dizzy COMPARISON: None. ACCESSION NUMBER(S): [id number] ORDERING CLINICIAN: SYDNI DREW TECHNIQUE: Single frontal view of the chest performed. FINDINGS: LINES AND DEVICES: None. LUNGS: No focal consolidation, pulmonary edema, pleural effusion or pneumothorax. Bilateral streaky atelectasis. CARDIOMEDIASTINAL SILHOUETTE: The cardiomediastinal silhouette is within normal limits. Prior median sternotomy. OTHER: Tip of near stimulator at level of T7-T8. IMPRESSION: No acute pulmonary process. MACRO None Signed by: Alexander Hook 09/11/2023 2:31 PM Dictation workstation: [employer] [facility] XR Chest Single viewon 09-10 No acute pulmonary p rocess. MACRO None Signed by: Alexander Hook 09/11/2023 2:31 PM Dictation workstation: [employer] [facility]ODAL Interpreted By: Alexander Hook, STUDY: XR CHEST 1 VIEW; 09/11/2023 2:25 pm INDICATION: Signs/Symptoms:dizzy COMPARISON: None. ACCESSION NUMBER(S): [id number] ORDERING CLINICIAN: SYDNI BILDERBACK TECHNIQUE: Single frontal view of the chest performed. FINDINGS: LINES AND DEVICES: None. LUNGS: No focal consolidation, pulmonary edema, pleural effusion or pneumothorax. Bilateral streaky atelectasis. CARDIOMEDIASTINAL SILHOUETTE: The cardiomediastinal silhouette is within normal limits. Prior median sternotomy. OTHER: Tip of near stimulator at level of T7-T8. [facility] Alexander Hook, DO - 09/11/2023 Interpreted By: Alexander Hook, STUDY: XR CHEST 1 VIEW; 09/11/2023 2:25 pm INDICATION: Signs/Symptoms:dizzy COMPARISON: None. ACCESSION NUMBER(S): [id number] ORDERING CLINICIAN: SYDNI DREW TECHNIQUE: Single frontal view of the chest performed. FINDINGS: LINES AND DEVICES: None. LUNGS: No focal consolidation, pulmonary edema, pleural effusion or pneumothorax. Bilateral streaky atelectasis. CARDIOMEDIASTINAL SILHOUETTE: The cardiomediastinal silhouette is within normal limits. Prior median sternotomy. OTHER: Tip of near stimulator at level of T7-T8. IMPRESSION: No acute pulmonary process. MACRO None Signed by: Alexander Hook 09/11/2023 2:31 PM Dictation workstation: [employer] [facility] Work Phone: Radiology Study observation (narrative) [facility] Work Phone: XR Chest Single viewOrdered By: Alexander Hook on 09-11-2023 [facility] Work Phone: Absolute lymphocyte countOrd ered By: Liliana Wyman on 04-08-2023 Lymphocytes Auto (Unsp spec) [#/Vol] 1.63 10*3/uL 0.83-4.51 [facility] Automated lymphocyte count a s percentage of total leukocytesOrdered By: Liliana Wyman on 04-08-2023 Lymphocytes/100 WBC Auto (Unsp spec) 27.6 % 19-41 [facility] Basophil percentageOrdered B y: Liliana Wyman on 04-08-2023 Basophils/100 WBC (Bld) 1.7 % 0-1 [facility] Bilirubin [Mass/Vol] 0.30 mg/dL 0.20-1.00 [facility] Comment on above: For patients on eltr ombopag therapy, use of Dimension [place] TBIL is not recommended. Chloride [Moles/Vol] 108 mmol/L 98-107 [facility] Eosinophils/100 WBC (Bld) 7.5 % 0-5 [facility] Glucose [Mass/Vol] 215 mg/dL 74-106 [facility] Comment on above: Glucose result great er than or equal to 200 mg/dLsuggests DIABETES MELLITUS per A.D.A. criteria. Hemoglobin (Bld) [Mass/Vol] 13.7 g/dL 12.0-15.0 [facility] Monocytes/100 WBC (Bld) 7.5 % 0-10 [facility] Neutrophils (Bld) [#/Vol] 3.3 10*3/uL 2.0-7.7 [facility] Neutrophils/100 WBC (Bld) 55.4 % 47-70 [facility] Potassium [Moles/Vol] 4.1 mmol/L 3.5-5.1 [facility] Protein [Mass/Vol] 6.9 g/dL 6.4-8.2 [facility] Sodium [Moles/Vol] 141 mmol/L 136-145 [facility] WBC (Bld) [#/Vol] 5.9 10*3/uL 4.4-11.0 [facility] Determination of erythrocyte mean corpuscular volume (MCV)Ordered By: Liliana Wyman on 04-08-2023 MCV (RBC) [Entitic vol] 91.1 fL 81-99 [facility] Erythrocyte distribution wid th ratioOrdered By: Liliana Wyman on 04-08-2023 Erythrocyte distribution width (RBC) [Ratio] 13.2 % 11.6-14.6 [facility] Erythrocyte distribution wid th standard deviationOrdered By: [facility] Garo on 04-08-2023 Erythrocyte distribution width (RBC) [Entitic vol] 43.7 fL 35.1-43.9 [facility] Hematocrit Auto (Bld) [Volum e fraction]Ordered By: Liliana Wyman on 04-08-2023 Hematocrit (Bld) [Volume fraction] 41.9 % 37-47 [facility] Immature granulocytes/100 WB C Auto (Bld)Ordered By: Liliana Wyman on 04-08-2023 Immature granulocytes/100 WBC (Bld) 0.300 % 0.0-0.9 [facility] Comment on above: IG% - Immature Granu locytes (promyelocytes, myelocytes and metamyelocytes) > 1% indicates that a LEFT SHIFT is Present. Laboratory - Chemistry and C hemistry - challengeOrdered By: Liliana Wyman on 04-08-2023 Albumin/Globulin [Mass ratio] 0.9 {ratio} 0.9-2.4 [facility] ALP [Catalytic activity/Vol] 170 U/L 45-117 [facility] ALT [Catalytic activity/Vol] 33 U/L 13-56 [facility] CO2 [Moles/Vol] 29.0 mmol/L 21.0-32.0 [facility] Globulin (S) [Mass/Vol] 3.7 g/dL 2.2-4.2 [facility] Urea nitrogen/Creatinine [Mass ratio] 17.0 mg/mg 10-20 [facility] Laboratory - Hematology and Cell countsOrdered By: Liliana Wyman on 04-08-2023 MCH (RBC) [Entitic mass] 29.8 pg 27.0-32.0 [facility] MCHC (RBC) [Mass/Vol] 32.7 g/dL 32-36 [facility] Nucleated RBC/100 WBC (Bld) [Ratio] 0 % 0-5 [facility] Platelet mean volume (Bld) [Entitic vol] 11.2 fL 6.2-12.0 [facility] Platelets (Bld) [#/Vol] 203 10*3/uL 150-450 [facility] No Panel InformationOrdered By: Liliana Wyman on 04-08-2023 Estimated GFR (MDRD) Amer 68 mL/min >60 [facility] Comment on above: GFR Calc Estimated GFR (MDRD) Non-Af Amer 56 mL/min >60 [facility] Comment on above: Non- GFR Calc RBC Auto (Bld) [#/Vol]Ordere d By: Liliana Wyman on 04-08-2023 RBC (Bld) [#/Vol] 4.60 10*6/uL 4.2-5.[address] [facility] Serum or plasma calcium marylou urement (mass/volume)Ordered By: Liliana Wyman on 04-08-2023 Calcium [Mass/Vol] 9.5 mg/dL 8.5-10.1 [facility] Serum or plasma creatinine m easurement (mass/volume)Ordered By: Liliana Wyman on 04-08-2023 Creatinine [Mass/Vol] 1.06 mg/dL 0.55-1.02 [facility] Comment on above: The validity of the calculated GFR & GFRAA in patients over 70 years has not been determined. Clinical correlation is essential. Serum or plasma urea nitroge n measurement (mass/volume)Ordered By: Liliana Wyman on 04-08-2023 Urea nitrogen [Mass/Vol] 18 mg/dL 7-18 [facility] Thin prep Papanicolaou smear with manual screeningOrdered By: Liliana Wyman on 04-08-2023 Thin prep Papanicolaou smear with manual screening 3.2 g/dL 3.2-5.0 [facility] Thin prep Papanicolaou smear with manual screening 26 U/L 15-37 [facility] Thin prep Papanicolaou smear with manual screening 4 5-15 [facility] Cervical or vaginal specimen microscopic examination by liquid based cytology (reportOrdered By: Elsie Ferris on 03-28-2023 Cytology report Cyto stain.thin prep Doc (Cvx/Vag) Comment . [facility] Comment on above: Criteria not met, HP V Genotype not performed.Performed at: - [facility] [id number] Director: Keiry Heard MD, Phone: [phone] at: =G - [facility] [address] [id number] Director: Keiry Heard MD, Phone: [phone] Cervical or vagninal specime n microscopic examination by cytology stain (reported asOrdered By: Elsie Ferris on 03-28-2023 Cytology report Cyto stain Doc (Cvx/Vag) Comment . [facility] Comment on above: The Pap smear is a s creening test designed to aid in thedetection of premalignant and malignant conditions of theuterine cervix. It is not a diagnostic procedure andshould not be used as the sole means of detecting cervicalcancer. Both false-positive and false-negative reports dooccur. Detection in cervical specim en of any of human papilloma virus (HPV) 16, 18, 31, 33,Ordered By: Elsie Ferris on 03-28-2023 HPV 16+18+31+33+35+39+45+5 1+52+56+58+59+66+68 DNA Probe+sig amp Ql (Cvx) Negative Negative [facility] Comment on above: This nucleic acid am plification test detects fourteen high- risk HPV types (16,18,31,33,35,39,45,51,52,56,58,59,66,68)without differentiation. Laboratory - CytologyOrdered By: Elsie Ferris on 03-28-2023 Plant Operator Control Room Operator Cyto stain Nom (Cvx/Vag) [ID] Comment . [facility] Comment on above: Maia Garsia, Cytot echnologist (ASCP) Laboratory - Miscellaneous t estsOrdered By: Elsie Ferris on 03-28-2023 Service comment (Unsp spec) [Interp] . . [facility] Thin prep Papanicolaou smear with manual screeningOrdered By: Elsie Ferris on 03-28-2023 Thin prep Papanicolaou smear with manual screening Comment . [facility] Comment on above: NEGATIVE FOR INTRAEP ITHELIAL LESION OR MALIGNANCY. This liquid based Th inPrep(R) pap test was screened withthe use of an image guided system. Absolute lymphocyte countOrd ered By: Liliana Wyman on 01-07-2023 Lymphocytes Auto (Unsp spec) [#/Vol] 1.58 10*3/uL 0.83-4.51 [facility] Basophil percentageOrdered B y: Liliana Wyman on 01-07-2023 Basophils/100 WBC (Bld) 1.4 % 0-1 [facility] Bilirubin [Mass/Vol] 0.50 mg/dL 0.20-1.00 [facility] Comment on above: For patients on eltr ombopag therapy, use of Dimension [place] TBIL is not recommended. Chloride [Moles/Vol] 101 mmol/L 98-107 [facility] Eosinophils/100 WBC (Bld) 8.0 % 0-5 [facility] Glucose [Mass/Vol] 382 mg/dL 74-106 [facility] Comment on above: Glucose result great er than or equal to 200 mg/dLsuggests DIABETES MELLITUS per A.D.A. criteria. Neutrophils (Bld) [#/Vol] 3.3 10*3/uL 2.0-7.7 [facility] Neutrophils/100 WBC (Bld) 56.1 % 47-70 [facility] Potassium [Moles/Vol] 4.0 mmol/L 3.5-5.1 [facility] Protein [Mass/Vol] 7.1 g/dL 6.4-8.2 [facility] Sodium [Moles/Vol] 137 mmol/L 136-145 [facility] WBC (Bld) [#/Vol] 5.9 10*3/uL 4.4-11.0 [facility] Blood erythrocytes count (nu mber/volume)Ordered By: Liliana Wyman on 01-07-2023 RBC (Bld) [#/Vol] 4.31 10*6/uL 4.2-5.[address] [facility] Blood hemoglobin measurement (mass/volume)Ordered By: Liliana Wyman on 01-07-2023 Hemoglobin (Bld) [Mass/Vol] 12.9 g/dL 12.0-15.0 [facility] Blood lymphocytes/100 leukoc ytesOrdered By: Lilianajuan Wyman on 01-07-2023 Lymphocytes/100 WBC (Bld) 26.8 % 19-41 [facility] Blood monocytes/100 leukocyt esOrdered By: Liliana Wyman on 01-07-2023 Monocytes/100 WBC (Bld) 7.5 % 0-10 [facility] Blood platelet mean volumeOr dered By: Lilianajuan Wyman on 01-07-2023 Platelet mean volume (Bld) [Entitic vol] 11.3 fL 6.2-12.0 [facility] Determination of erythrocyte mean corpuscular volume (MCV)Ordered By: Lilianajuan Wyman on 01-07-2023 MCV (RBC) [Entitic vol] 92.3 fL 81-99 [facility] Hematocrit Auto (Bld) [Volum e fraction]Ordered By: [facility] Garo on 01-07-2023 Hematocrit (Bld) [Volume fraction] 39.8 % 37-47 [facility] Laboratory - Chemistry and C hemistry - challengeOrdered By: Lilianajuan Wyman on 01-07-2023 ALP [Catalytic activity/Vol] 160 U/L 45-117 [facility] ALT [Catalytic activity/Vol] 37 U/L 13-56 [facility] CO2 [Moles/Vol] 29.0 mmol/L 21.0-32.0 [facility] Globulin (S) [Mass/Vol] 3.8 g/dL 2.2-4.2 [facility] Urea nitrogen/Creatinine [Mass ratio] 14.0 mg/mg 10-20 [facility] Laboratory - Hematology and Cell countsOrdered By: Lilianajuan Wyman on 01-07-2023 Erythrocyte distribution width (RBC) [Entitic vol] 44.7 fL 35.1-43.9 [facility] Erythrocyte distribution width (RBC) [Ratio] 13.1 % 11.6-14.6 [facility] Immature granulocytes/100 WBC (Bld) 0.200 % 0.0-0.9 [facility] Comment on above: IG% - Immature Granu locytes (promyelocytes, myelocytes and metamyelocytes) > 1% indicates that a LEFT SHIFT is Present. MCH (RBC) [Entitic mass] 29.9 pg 27.0-32.0 [facility] Nucleated RBC/100 WBC (Bld) [Ratio] 0 % 0-5 [facility] MCHC Auto (RBC) [Mass/Vol]Or dered By: Liliana Wyman on 01-07-2023 MCHC (RBC) [Mass/Vol] 32.4 g/dL 32-36 [facility] No Panel InformationOrdered By: Liliana Wyman on 01-07-2023 Estimated GFR (MDRD) Amer 58 mL/min >60 [facility] Comment on above: GFR Calc Estimated GFR (MDRD) Non-Af Amer 48 mL/min >60 [facility] Comment on above: Non- GFR Calc Platelets bldOrdered By: Alejandro Wyman on 01-07-2023 Platelets (Bld) [#/Vol] 210 10*3/uL 150-450 [facility] Serum or plasma albumin marylou urement (mass/volume)Ordered By: Liliana Wyman on 01-07-2023 Albumin [Mass/Vol] 3.3 g/dL 3.2-5.0 [facility] Serum or plasma albumin/glob ulin mass ratioOrdered By: Liliana Wyman on 01-07-2023 Albumin/Globulin [Mass ratio] 0.9 {ratio} 0.9-2.4 [facility] Serum or plasma calcium marylou urement (mass/volume)Ordered By: Liliana Wyman on 01-07-2023 Calcium [Mass/Vol] 8.8 mg/dL 8.5-10.1 [facility] Serum or plasma creatinine m easurement (mass/volume)Ordered By: Liliana Wyman on 01-07-2023 Creatinine [Mass/Vol] 1.21 mg/dL 0.55-1.02 [facility] Comment on above: The validity of the calculated GFR & GFRAA in patients over 70 years has not been determined. Clinical correlation is essential. Serum or plasma urea nitroge n measurement (mass/volume)Ordered By: Liliana Wyman on 01-07-2023 Urea nitrogen [Mass/Vol] 17 mg/dL 7-18 [facility] Thin prep Papanicolaou smear with manual screeningOrdered By: Liliana Wyman on 01-07-2023 Thin prep Papanicolaou smear with manual screening 22 U/L 15-37 [facility] Thin prep Papanicolaou smear with manual screening 7 5-15 [facility] FOREARM, MIN 2 VIEWSon 07-07 FOREARM, MIN 2 VIEWS Patient Name: TARYN SELF STUDY: Right forearm dated 07/07/2022. INDICATION: dog bite COMPARISON: None. ACCESSION NUMBER(S): [id number] ORDERING CLINICIAN: SYDNI DREW TECHNIQUE: AP and lateral radiographs of the Right forearm. FINDINGS: No fracture or dislocation is evident. Mild degenerative changes seen of the elbow. Corticated body at the distal tip of the ulnar styloid may be from prior avulsion injury versus accessory ossicle. Mild degenerative changes seen of the 1st digit carpometacarpal joint. Reticular stranding is seen in the soft tissues of the radial side of the mid forearm without radiopaque foreign body evident. There is some bubbles gas in the soft tissues associated with a reticular stranding. IMPRESSION: Reticular stranding likely related to reactive edema with associated bubbles of gas at the soft tissues of the mid radial side of the forearm without radiopaque foreign body or osseous injury evident. Electronically signed by: LOLI GORDON MD [facility] Risk Screen - Adult [facility] 07-07-2022 Risk Screen - Adult Emergency Preferred Language: Preferred Language: Preferred Language for Discussing Health Care (patient/designee)N[place]ian Patient Preferred Pharmacy: Patient Preferred Pharmacy Statement: I have reviewed and updated the patient's preferred pharmacy selection for today's visit. Advanced Directives: Advance Directive/DNRno Advance Directive Information Givenpatient/family declined Family Violence Adult: Abuse Screen: Are you or have you been threatened or abused physically, emotionally, or sexually by anyoneno Learning Assessment (Patient): Learning Assessment (Patient): Patient is Able to be Assessed for Learningyes Factors Influencing Readiness to Learnacuteness of illness Factors that Impact Ability to Learnacuteness of illness Devices/Methods Used to Communicatenone Learning Preferencesindividual instruction; skill demonstration; written material; verbal instruction Cultural Considerationsnone Developmental Considerationsnone Cheondoism Considerationsnone Learning Assessment (Other Learner): Learning Assessment (Other Learner): Other learner availableno Pressure Injury/TB/Substance: Pressure Injury: Do you have a coughno Smoking Statusnever smoker Alcohol Usedenies Drug Usedenies Admission Risk Screen: Significant IndicatorsComplete CAGE: CAGE: Is this an injured patient at a Trauma Center ([facility] no Electronic Signatures: Ann Marie Sheldon (RN) (Signed 07-Jul-2022 18:59) Authored: Preferred Language, Patient Preferred Pharmacy, Advanced Directives, Family Violence Adult, Learning Assessment (Patient), Learning Assessment (Other Learner), Pressure Injury/TB/Substance, Pressure Injury, CAGE Last Updated: 07-Jul-2022 18:59 by Ann Marie Sheldon (RN) [facility] Triage - EDon 07-07-2022 Triage - ED Quick Triage: Are You no Are You Currently Breastfeedingno Chart Review: ARRIVAL INFORMATION Mode of Arrival: private vehicle CHIEF COMPLAINT TARYN SELF is a Female patient with a chief complaint of animal bite (Patient to ED with c/o dog bites/scratch. Patient scratched by dog a few days ago to left lower leg, redness noted. Patient also bit by dog on right forearm yesterday. Dogs up to date on vaccines. Patient unknown last tetanus.). Triage Date/Time: 07-Jul-2022 18:55 EPI: 4 Pain Rating (0-10): 3 = Mild Pain location: right arm Vital Signs: Temperature: 97.7F ( 36.5C) Blood Pressure: 153/107 Mean: Heart Rate: 93 Respiratory Rate: 18 Pulse Oximetry: 96% on room air, no respiratory support. Height: 5 feet 4.00 inches. 162.5 CM Weight: 350.5 pounds. Calculated 159.0 kg. (stated) Calculated BMI (kg/m2): 60.213 Calculated BSA (m2) 2.68 Edmondson Coma Scale: Best Eye Response: (E4) spontaneous Best Motor Response: (M6) obeys commands Best Verbal Response: (V5) oriented Edmondson Score: 15 Patient has homicidal thoughts: no Symptoms Are Negative For: anxiety, bleeding, chills, diaphoresis, dyspnea, fever, nausea, rash, swelling and tingling. Risk Screens Suicide Risk Screen In the Past Month: Have you wished you were or wished you could go to sleep and not wake up no In the Past Month: Have you had any actual thoughts of killing yourself no In Your Lifetime: Have you ever done anything, started to do anything, or prepared to do anything to end your life no Interventions: Funez Fall Interventions: LOW INTERVENTIONS: *patient oriented to surroundings and call system, * patient/family falls education completed and documented, *patients fall status communicated during bedside handoff, *whiteboard updated, *mode of toileting discussed with patient, *bed in low position with brakes locked, *call light in reach, * non-skid footwear TRAVEL HISTORY Travel History Coronavirus Screening: no exposure or symptoms Travel Exposure History: NO travel to International locations in the past 30 days PAIN Pain Scale Used: NAHUM Pain Rating (0-10): 3 = Mild Past Medical History: Past Medical History Reviewedyes Electronic Signatures: Ann Marie Sheldon (CORRINE) (Signed 07-Jul-2022 18:58) Entered: Risk Screens, Pain, Travel History, Chart Review, Scores, Past Medical History Authored: Quick Triage, Risk Screens, Pain, Travel History, Chart Review, Scores, Past Medical History Last Updated: 07-Jul-2022 18:58 by Ann Marie Sheldon (RN) [facility] Absolute lymphocyte countOrd ered By: Dr. Shearer on 06-28-2022 Lymphocytes Auto (Unsp spec) [#/Vol] 2.07 10*3/uL 0.83-4.51 [facility] Basophil percentageOrdered B y: Dr. Shearer on 06-28-2022 Basophils/100 WBC (Bld) 1.3 % 0-1 [facility] Bilirubin [Mass/Vol] 0.30 mg/dL 0.20-1.00 [facility] Comment on above: For patients on eltr ombopag therapy, use of Dimension [place] TBIL is not recommended. Chloride [Moles/Vol] 105 mmol/L 98-107 [facility] Eosinophils/100 WBC (Bld) 6.9 % 0-5 [facility] Glucose [Mass/Vol] 199 mg/dL 74-106 [facility] Comment on above: Fasting Glucose resu lt greater than or equal to 126 mg/dL suggests DIABETES MELLITUS per A.D.A. criteria. Neutrophils (Bld) [#/Vol] 3.8 10*3/uL 2.0-7.7 [facility] Neutrophils/100 WBC (Bld) 54.4 % 47-70 [facility] Potassium [Moles/Vol] 4.0 mmol/L 3.5-5.1 [facility] Protein [Mass/Vol] 7.4 g/dL 6.4-8.2 [facility] Sodium [Moles/Vol] 141 mmol/L 136-145 [facility] WBC (Bld) [#/Vol] 7.0 10*3/uL 4.4-11.0 [facility] Blood erythrocytes count (nu mber/volume)Ordered By: Dr. Shearer on 06-28-2022 RBC (Bld) [#/Vol] 4.60 10*6/uL 4.2-5.[address] [facility] Blood hemoglobin measurement (mass/volume)Ordered By: Dr. Shearer on 06-28-2022 Hemoglobin (Bld) [Mass/Vol] 13.6 g/dL 12.0-15.0 [facility] Blood lymphocytes/100 leukoc ytesOrdered By: Dr. Shearer on 06-28-2022 Lymphocytes/100 WBC (Bld) 29.7 % 19-41 [facility] Blood monocytes/100 leukocyt esOrdered By: Dr. Shearer on 06-28-2022 Monocytes/100 WBC (Bld) 7.6 % 0-10 [facility] Blood platelet mean volumeOr dered By: Dr. Shearer on 06-28-2022 Platelet mean volume (Bld) [Entitic vol] 11.1 fL 6.2-12.0 [facility] Determination of erythrocyte mean corpuscular volume (MCV)Ordered By: Dr. Shearer on 06-28-2022 MCV (RBC) [Entitic vol] 92.4 fL 81-99 [facility] Hematocrit Auto (Bld) [Volum e fraction]Ordered By: Dr. Shearer on 06-28-2022 Hematocrit (Bld) [Volume fraction] 42.5 % 37-47 [facility] Laboratory - Chemistry and C hemistry - challengeOrdered By: Dr. Shearer on 06-28-2022 ALP [Catalytic activity/Vol] 128 U/L 45-117 [facility] ALT [Catalytic activity/Vol] 31 U/L 13-56 [facility] CO2 [Moles/Vol] 29.0 mmol/L 21.0-32.0 [facility] Globulin (S) [Mass/Vol] 3.7 g/dL 2.2-4.2 [facility] Urea nitrogen/Creatinine [Mass ratio] 20.0 mg/mg 10-20 [facility] Laboratory - Hematology and Cell countsOrdered By: Dr. Shearer on 06-28-2022 Erythrocyte distribution width (RBC) [Entitic vol] 44.3 fL 35.1-43.9 [facility] Erythrocyte distribution width (RBC) [Ratio] 13.1 % 11.6-14.6 [facility] Immature granulocytes/100 WBC (Bld) 0.100 % 0.0-0.9 [facility] Comment on above: IG% - Immature Granu locytes (promyelocytes, myelocytes and metamyelocytes) > 1% indicates that a LEFT SHIFT is Present. MCH (RBC) [Entitic mass] 29.6 pg 27.0-32.0 [facility] Nucleated RBC/100 WBC (Bld) [Ratio] 0 % 0-5 [facility] MCHC Auto (RBC) [Mass/Vol]Or dered By: Dr. Shearer on 06-28-2022 MCHC (RBC) [Mass/Vol] 32.0 g/dL 32-36 [facility] No Panel InformationOrdered By: Dr. Shearer on 06-28-2022 Estimated GFR (MDRD) Amer 65 mL/min >60 [facility] Comment on above: GFR Calc Estimated GFR (MDRD) Non-Af Amer 54 mL/min >60 [facility] Comment on above: Non- GFR Calc Platelets bldOrdered By: Dr. Shearer on 06-28-2022 Platelets (Bld) [#/Vol] 213 10*3/uL 150-450 [facility] Serum or plasma albumin marylou urement (mass/volume)Ordered By: Dr. Shearer on 06-28-2022 Albumin [Mass/Vol] 3.7 g/dL 3.2-5.0 [facility] Serum or plasma albumin/glob ulin mass ratioOrdered By: Dr. Shearer on 06-28-2022 Albumin/Globulin [Mass ratio] 1.0 {ratio} 0.9-2.4 [facility] Serum or plasma calcium marylou urement (mass/volume)Ordered By: Dr. Shearer on 06-28-2022 Calcium [Mass/Vol] 9.5 mg/dL 8.5-10.1 [facility] Serum or plasma creatinine m easurement (mass/volume)Ordered By: Dr. Shearer on 06-28-2022 Creatinine [Mass/Vol] 1.10 mg/dL 0.55-1.02 [facility] [facility] Comment on above: The validity of the calculated GFR & GFRAA in patients over 70 years has not been determined. Clinical correlation is essential. Serum or plasma urea nitroge n measurement (mass/volume)Ordered By: Dr. Shearer on 06-28-2022 Urea nitrogen [Mass/Vol] 22 mg/dL 7-18 [facility] Thin prep Papanicolaou smear with manual screeningOrdered By: Dr. Shearer on 06-28-2022 Thin prep Papanicolaou smear with manual screening 21 U/L 15-37 [facility] Thin prep Papanicolaou smear with manual screening 7 5-15 [facility] Laboratory - Hematology and Cell countson 05-20-2022 HbA1c (Bld) [Mass fraction] 6.8 % 4.2-6.3 [facility] Absolute lymphocyte countOrd ered By: Dr. Wyman on 04-05-2022 Lymphocytes Auto (Unsp spec) [#/Vol] 1.19 10*3/uL 0.83-4.51 [facility] Basophil percentageOrdered B y: Dr. Wyman on 04-05-2022 Basophils/100 WBC (Bld) 1.5 % 0-1 [facility] Bilirubin [Mass/Vol] 0.40 mg/dL 0.20-1.00 [facility] Comment on above: For patients on eltr ombopag therapy, use of Dimension [place] TBIL is not recommended. Chloride [Moles/Vol] 106 mmol/L 98-107 [facility] Eosinophils/100 WBC (Bld) 9.4 % 0-5 [facility] Glucose [Mass/Vol] 180 mg/dL 74-106 [facility] Comment on above: Fasting Glucose resu lt greater than or equal to 126 mg/dL suggests DIABETES MELLITUS per A.D.A. criteria. Neutrophils (Bld) [#/Vol] 3.0 10*3/uL 2.0-7.7 [facility] Neutrophils/100 WBC (Bld) 56.3 % 47-70 [facility] Potassium [Moles/Vol] 3.8 mmol/L 3.5-5.1 [facility] Protein [Mass/Vol] 7.0 g/dL 6.4-8.2 [facility] Sodium [Moles/Vol] 139 mmol/L 136-145 [facility] WBC (Bld) [#/Vol] 5.3 10*3/uL 4.4-11.0 [facility] Blood erythrocytes count (nu mber/volume)Ordered By: Dr. Wyman on 04-05-2022 RBC (Bld) [#/Vol] 4.43 10*6/uL 4.2-5.[address] [facility] Blood hemoglobin measurement (mass/volume)Ordered By: Dr. Wyman on 04-05-2022 Hemoglobin (Bld) [Mass/Vol] 13.4 g/dL 12.0-15.0 [facility] Blood lymphocytes/100 leukoc ytesOrdered By: Dr. Wyman on 04-05-2022 Lymphocytes/100 WBC (Bld) 22.3 % 19-41 [facility] Blood monocytes/100 leukocyt esOrdered By: Dr. Wyman on 04-05-2022 Monocytes/100 WBC (Bld) 10.3 % 0-10 [facility] Blood platelet mean volumeOr dered By: Dr. Wyman on 04-05-2022 Platelet mean volume (Bld) [Entitic vol] 11.4 fL 6.2-12.0 [facility] Determination of erythrocyte mean corpuscular volume (MCV)Ordered By: Dr. Wyman on 04-05-2022 MCV (RBC) [Entitic vol] 94.6 fL 81-99 [facility] Hematocrit Auto (Bld) [Volum e fraction]Ordered By: Dr. Wyman on 04-05-2022 Hematocrit (Bld) [Volume fraction] 41.9 % 37-47 [facility] Laboratory - Chemistry and C hemistry - challengeOrdered By: Dr. Wyman on 04-05-2022 ALP [Catalytic activity/Vol] 110 U/L 45-117 [facility] ALT [Catalytic activity/Vol] 29 U/L 13-56 [facility] CO2 [Moles/Vol] 27.0 mmol/L 21.0-32.0 [facility] Globulin (S) [Mass/Vol] 3.6 g/dL 2.2-4.2 [facility] Urea nitrogen/Creatinine [Mass ratio] 14.7 mg/mg 10-20 [facility] Laboratory - Hematology and Cell countsOrdered By: Dr. Wyman on 04-05-2022 Erythrocyte distribution width (RBC) [Entitic vol] 45.2 fL 35.1-43.9 [facility] Erythrocyte distribution width (RBC) [Ratio] 13.0 % 11.6-14.6 [facility] Immature granulocytes/100 WBC (Bld) 0.200 % 0.0-0.9 [facility] Comment on above: IG% - Immature Granu locytes (promyelocytes, myelocytes and metamyelocytes) > 1% indicates that a LEFT SHIFT is Present. MCH (RBC) [Entitic mass] 30.2 pg 27.0-32.0 [facility] Nucleated RBC/100 WBC (Bld) [Ratio] 0 % 0-5 [facility] MCHC Auto (RBC) [Mass/Vol]Or dered By: Dr. Wyman on 04-05-2022 MCHC (RBC) [Mass/Vol] 32.0 g/dL 32-36 [facility] No Panel InformationOrdered By: Dr. Wyman on 04-05-2022 Estimated GFR (MDRD) Amer 61 mL/min >60 [facility] Comment on above: GFR Calc Estimated GFR (MDRD) Non-Af Amer 51 mL/min >60 [facility] Comment on above: Non- GFR Calc Platelets bldOrdered By: Dr. Wyman on 04-05-2022 Platelets (Bld) [#/Vol] 189 10*3/uL 150-450 [facility] Serum or plasma albumin marylou urement (mass/volume)Ordered By: Dr. Wyman on 04-05-2022 Albumin [Mass/Vol] 3.4 g/dL 3.2-5.0 [facility] Serum or plasma albumin/glob ulin mass ratioOrdered By: Dr. Wyman on 04-05-2022 Albumin/Globulin [Mass ratio] 0.9 {ratio} 0.9-2.4 [facility] Serum or plasma calcium marylou urement (mass/volume)Ordered By: Dr. Wyman on 04-05-2022 Calcium [Mass/Vol] 8.9 mg/dL 8.5-10.1 [facility] Serum or plasma creatinine m easurement (mass/volume)Ordered By: Dr. Wyman on 04-05-2022 Creatinine [Mass/Vol] 1.16 mg/dL 0.55-1.02 [facility] Comment on above: The validity of the calculated GFR & GFRAA in patients over 70 years has not been determined. Clinical correlation is essential. Serum or plasma urea nitroge n measurement (mass/volume)Ordered By: Dr. Wyman on 04-05-2022 Urea nitrogen [Mass/Vol] 17 mg/dL 7-18 [facility] Thin prep Papanicolaou smear with manual screeningOrdered By: Dr. Wyman on 04-05-2022 Thin prep Papanicolaou smear with manual screening 19 U/L 15-37 [facility] Thin prep Papanicolaou smear with manual screening 6 5-15 [facility] Laboratory - Hematology and Cell countson 02-18-2022 HbA1c (Bld) [Mass fraction] 7.0 % 4.2-6.3 [facility] No Panel InformationOrdered By: Ashley Montiel on 02-18-2022 Thyroid Stimulating Hormone (TSH) 1.19 uIU/mL 0.358-3.74 [facility] Absolute lymphocyte counton 12-07-2021 Lymphocytes Auto (Unsp spec) [#/Vol] 1.79 10*3/uL 0.83-4.51 [facility] Work Phone: [phone] Basophil percentageon 2021 Basophils/100 WBC (Bld) 0.8 % 0-1 [facility] Work Phone: Bilirubin [Mass/Vol] 0.40 mg/dL 0.20-1.00 [facility] Work Phone: Comment on above: For patients on eltr ombopag therapy, use of Dimension [place] TBIL is not recommended. Chloride [Moles/Vol] 106 mmol/L 98-107 [facility] Work Phone: Eosinophils/100 WBC (Bld) 5.5 % 0-5 [facility] Work Phone: Glucose [Mass/Vol] 163 mg/dL 74-106 [facility] Work Phone: Comment on above: Fasting Glucose resu lt greater than or equal to 126 mg/dL suggests DIABETES MELLITUS per A.D.A. criteria. Neutrophils (Bld) [#/Vol] 3.8 10*3/uL 2.0-7.7 [facility] Work Phone: Neutrophils/100 WBC (Bld) 58.6 % 47-70 [facility] Work Phone: Potassium [Moles/Vol] 4.0 mmol/L 3.5-5.1 [facility] Work Phone: Protein [Mass/Vol] 7.4 g/dL 6.4-8.2 [facility] Work Phone: Sodium [Moles/Vol] 141 mmol/L 136-145 [facility] Work Phone: WBC (Bld) [#/Vol] 6.5 10*3/uL 4.4-11.0 [facility] Work Phone: Blood erythrocytes count (nu mber/volume)on 12-07-2021 RBC (Bld) [#/Vol] 4.43 10*6/uL 4.2-5.[address] [facility] Work Phone: Blood hemoglobin measurement (mass/volume)on 12-07-2021 Hemoglobin (Bld) [Mass/Vol] 13.7 g/dL 12.0-15.0 [facility] Work Phone: Blood lymphocytes/100 leukoc yteson 12-07-2021 Lymphocytes/100 WBC (Bld) 27.6 % 19-41 [facility] Work Phone: Blood monocytes/100 leukocyt eson 12-07-2021 Monocytes/100 WBC (Bld) 7.2 % 0-10 [facility] Work Phone: Blood platelet mean volumeon 12-07-2021 Platelet mean volume (Bld) [Entitic vol] 11.0 fL 6.2-12.0 [facility] Work Phone: Determination of erythrocyte mean corpuscular volume (MCV)on 12-07-2021 MCV (RBC) [Entitic vol] 93.5 fL 81-99 [facility] Work Phone: Hematocrit Auto (Bld) [Volum e fraction]on 12-07-2021 Hematocrit (Bld) [Volume fraction] 41.4 % 37-47 [facility] Work Phone: Laboratory - Chemistry and C hemistry - challengeon 12-07-2021 ALP [Catalytic activity/Vol] 116 U/L 45-117 [facility] Work Phone: ALT [Catalytic activity/Vol] 28 U/L 13-56 [facility] Work Phone: CO2 [Moles/Vol] 26.0 mmol/L 21.0-32.0 [facility] Work Phone: Globulin (S) [Mass/Vol] 3.8 g/dL 2.2-4.2 [facility] Work Phone: Urea nitrogen/Creatinine [Mass ratio] 16.9 mg/mg 10-20 [facility] Work Phone: Laboratory - Hematology and Cell countson 12-07-2021 Erythrocyte distribution width (RBC) [Entitic vol] 45.4 fL 35.1-43.9 [facility] Work Phone: Erythrocyte distribution width (RBC) [Ratio] 13.2 % 11.6-14.6 [facility] Work Phone: Immature granulocytes/100 WBC (Bld) 0.300 % 0.0-0.9 [facility] Work Phone: Comment on above: IG% - Immature Granu locytes (promyelocytes, myelocytes and metamyelocytes) > 1% indicates that a LEFT SHIFT is Present. MCH (RBC) [Entitic mass] 30.9 pg 27.0-32.0 [facility] Work Phone: Nucleated RBC/100 WBC (Bld) [Ratio] 0 % 0-5 [facility] Work Phone: MCHC Auto (RBC) [Mass/Vol]on 12-07-2021 MCHC (RBC) [Mass/Vol] 33.1 g/dL 32-36 [facility] Work Phone: No Panel Informationon 12-07 Estimated GFR (MDRD) Amer 60 mL/min >60 [facility] Work Phone: Comment on above: GFR Calc Estimated GFR (MDRD) Non-Af Amer 50 mL/min >60 [facility] Work Phone: Comment on above: Non- GFR Calc Thyroid Stimulating Hormone (TSH) 5.74 uIU/mL 0.358-3.74 [facility] Work Phone: Platelets bldon 12-07-2021 Platelets (Bld) [#/Vol] 208 10*3/uL 150-450 [facility] Work Phone: Serum or plasma albumin marylou urement (mass/volume)on 12-07-2021 Albumin [Mass/Vol] 3.6 g/dL 3.2-5.0 [facility] Work Phone: Serum or plasma albumin/glob ulin mass ratioon 12-07-2021 Albumin/Globulin [Mass ratio] 0.9 {ratio} 0.9-2.4 [facility] Work Phone: Serum or plasma calcium marylou urement (mass/volume)on 12-07-2021 Calcium [Mass/Vol] 9.0 mg/dL 8.5-10.1 [facility] Work Phone: Serum or plasma creatinine m easurement (mass/volume)on 12-07-2021 Creatinine [Mass/Vol] 1.18 mg/dL 0.55-1.02 [facility] Work Phone: Comment on above: The validity of the calculated GFR & GFRAA in patients over 70 years has not been determined. Clinical correlation is essential. Serum or plasma urea nitroge n measurement (mass/volume)on 12-07-2021 Urea nitrogen [Mass/Vol] 20 mg/dL 7-18 [facility] Work Phone: Thin prep Papanicolaou smear with manual screeningon 12-07-2021 Thin prep Papanicolaou smear with manual screening 20 U/L 15-37 [facility] Work Phone: Thin prep Papanicolaou smear with manual screening 9 5-15 [facility] Work Phone: Laboratory - Hematology and Cell countson 11-20-2021 HbA1c (Bld) [Mass fraction] 6.6 % 4.2-6.3 [facility] Work Phone: Absolute lymphocyte counton 09-08-2021 Lymphocytes Auto (Unsp spec) [#/Vol] 2.14 10*3/uL 0.83-4.51 [facility] Work Phone: Basophil percentageon 2021 Basophils/100 WBC (Bld) 1.3 % 0-1 [facility] Work Phone: Bilirubin [Mass/Vol] 0.30 mg/dL 0.20-1.00 [facility] Work Phone: Comment on above: For patients on eltr ombopag therapy, use of Dim[place] TBIL is not recommended. Chloride [Moles/Vol] 107 mmol/L 98-107 [facility] Work Phone: Eosinophils/100 WBC (Bld) 5.6 % 0-5 [facility] Work Phone: Glucose [Mass/Vol] 167 mg/dL 74-106 [facility] Work Phone: Comment on above: Fasting Glucose resu lt greater than or equal to 126 mg/dL suggests DIABETES MELLITUS per A.D.A. criteria. Neutrophils (Bld) [#/Vol] 3.3 10*3/uL 2.0-7.7 [facility] Work Phone: Neutrophils/100 WBC (Bld) 51.9 % 47-70 [facility] Work Phone: Potassium [Moles/Vol] 3.9 mmol/L 3.5-5.1 [facility] Work Phone: Protein [Mass/Vol] 7.1 g/dL 6.4-8.2 [facility] Work Phone: Sodium [Moles/Vol] 140 mmol/L 136-145 [facility] Work Phone: WBC (Bld) [#/Vol] 6.3 10*3/uL 4.4-11.0 [facility] Work Phone: Blood erythrocytes count (nu mber/volume)on 09-08-2021 RBC (Bld) [#/Vol] 4.47 10*6/uL 4.2-5.4 [facility]: Blood hemoglobin measurement (mass/volume)on 09-08-2021 Hemoglobin (Bld) [Mass/Vol] 13.8 g/dL 12.0-15.0 [facility] Work Phone: Blood lymphocytes/100 leukoc yteson 09-08-2021 Lymphocytes/100 WBC (Bld) 34.0 % 19-41 [facility] Work Phone: Blood monocytes/100 leukocyt eson 09-08-2021 Monocytes/100 WBC (Bld) 7.0 % 0-10 [facility] Work Phone: Blood platelet mean volumeon 09-08-2021 Platelet mean volume (Bld) [Entitic vol] 11.4 fL 6.2-12.0 [facility] Work Phone: Determination of erythrocyte mean corpuscular volume (MCV)on 09-08-2021 MCV (RBC) [Entitic vol] 93.1 fL 81-99 [facility] Work Phone: Hematocrit Auto (Bld) [Volum e fraction]on 09-08-2021 Hematocrit (Bld) [Volume fraction] 41.6 % 37-47 [facility] Work Phone: Laboratory - Chemistry and C hemistry - challengeon 09-08-2021 ALP [Catalytic activity/Vol] 107 U/L 45-117 [facility] Work Phone: ALT [Catalytic activity/Vol] 31 U/L 13-56 [facility] Work Phone: CO2 [Moles/Vol] 31.0 mmol/L 21.0-32.0 [facility] Work Phone: Globulin (S) [Mass/Vol] 3.6 g/dL 2.2-4.2 [facility] Work Phone: Urea nitrogen/Creatinine [Mass ratio] 16.2 mg/mg 10-20 [facility] Work Phone: Laboratory - Hematology and Cell countson 09-08-2021 Erythrocyte distribution width (RBC) [Entitic vol] 47.2 fL 35.1-43.9 [facility] Work Phone: Erythrocyte distribution width (RBC) [Ratio] 13.7 % 11.6-14.6 [facility] Work Phone: Immature granulocytes/100 WBC (Bld) 0.200 % 0.0-0.9 [facility] Work Phone: Comment on above: IG% - Immature Granu locytes (promyelocytes, myelocytes and metamyelocytes) > 1% indicates that a LEFT SHIFT is Present. MCH (RBC) [Entitic mass] 30.9 pg 27.0-32.0 [facility] Work Phone: Nucleated RBC/100 WBC (Bld) [Ratio] 0 % 0-5 [facility] Work Phone: MCHC Auto (RBC) [Mass/Vol]on 09-08-2021 MCHC (RBC) [Mass/Vol] 33.2 g/dL 32-36 [facility] Work Phone: No Panel Informationon 09-08 Estimated GFR (MDRD) Amer 61 mL/min >60 [facility] Work Phone: Comment on above: GFR Calc Estimated GFR (MDRD) Non-Af Amer 50 mL/min >60 [facility] Work Phone: Comment on above: Non- GFR Calc Thyroid Stimulating Hormone (TSH) 5.55 uIU/mL 0.358-3.74 [facility] Work Phone: Platelets bldon 09-08-2021 Platelets (Bld) [#/Vol] 223 10*3/uL 150-450 [facility] Work Phone: Serum or plasma albumin marylou urement (mass/volume)on 09-08-2021 Albumin [Mass/Vol] 3.5 g/dL 3.2-5.0 [facility] Work Phone: Serum or plasma albumin/glob ulin mass ratioon 09-08-2021 Albumin/Globulin [Mass ratio] 1.0 {ratio} 0.9-2.4 [facility] Work Phone: Serum or plasma calcium marylou urement (mass/volume)on 09-08-2021 Calcium [Mass/Vol] 9.3 mg/dL 8.5-10.1 [facility] Work Phone: Serum or plasma creatinine m easurement (mass/volume)on 09-08-2021 Creatinine [Mass/Vol] 1.17 mg/dL 0.55-1.02 [facility] Work Phone: Comment on above: The validity of the calculated GFR & GFRAA in patients over 70 years has not been determined. Clinical correlation is essential. Serum or plasma urea nitroge n measurement (mass/volume)on 09-08-2021 Urea nitrogen [Mass/Vol] 19 mg/dL 7-18 [facility] Work Phone: Thin prep Papanicolaou smear with manual screeningon 09-08-2021 Thin prep Papanicolaou smear with manual screening 17 U/L 15-37 [facility] Work Phone: Thin prep Papanicolaou smear with manual screening 2 5-15 [facility] Work Phone: Laboratory - Hematology and Cell countson 07-29-2021 HbA1c (Bld) [Mass fraction] 6.9 % 4.2-6.3 [facility] Work Phone: Absolute lymphocyte counton 07-10-2021 Lymphocytes Auto (Unsp spec) [#/Vol] 1.53 10*3/uL 0.83-4.51 [facility] Work Phone: Basophil percentageon 2021 Basophils/100 WBC (Bld) 0.8 % 0-1 [facility] Work Phone: Bilirubin [Mass/Vol] 0.40 mg/dL 0.20-1.00 [facility] Work Phone: Comment on above: For patients on eltr ombopag therapy, use of Dimension [place] TBIL is not recommended. Chloride [Moles/Vol] 106 mmol/L 98-107 [facility] Work Phone: Eosinophils/100 WBC (Bld) 5.1 % 0-5 [facility] Work Phone: Glucose [Mass/Vol] 158 mg/dL 74-106 [facility] Work Phone: Comment on above: Fasting Glucose resu lt greater than or equal to 126 mg/dL suggests DIABETES MELLITUS per A.D.A. criteria. Neutrophils (Bld) [#/Vol] 3.7 10*3/uL 2.0-7.7 [facility] Work Phone: Neutrophils/100 WBC (Bld) 61.5 % 47-70 [facility] Work Phone: Potassium [Moles/Vol] 4.0 mmol/L 3.5-5.1 [facility] Work Phone: [phone] Protein [Mass/Vol] 7.1 g/dL 6.4-8.2 [facility] Work Phone: Sodium [Moles/Vol] 140 mmol/L 136-145 [facility] Work Phone: WBC (Bld) [#/Vol] 6.1 10*3/uL 4.4-11.0 [facility] Work Phone: Blood erythrocytes count (nu mber/volume)on 07-10-2021 RBC (Bld) [#/Vol] 4.43 10*6/uL 4.2-5.4 [facility] Work [facility]: Blood hemoglobin measurement (mass/volume)on 07-10-2021 Hemoglobin (Bld) [Mass/Vol] 13.6 g/dL 12.0-15.0 [facility] Work Phone: Blood lymphocytes/100 leukoc yteson 07-10-2021 Lymphocytes/100 WBC (Bld) 25.3 % 19-41 [facility] Work Phone: Blood monocytes/100 leukocyt eson 07-10-2021 Monocytes/100 WBC (Bld) 6.8 % 0-10 [facility] Work Phone: Blood platelet mean volumeon 07-10-2021 Platelet mean volume (Bld) [Entitic vol] 11.2 fL 6.2-12.0 [facility] Work Phone: Determination of erythrocyte mean corpuscular volume (MCV)on 07-10-2021 MCV (RBC) [Entitic vol] 93.9 fL 81-99 [facility] Work Phone: Hematocrit Auto (Bld) [Volum e fraction]on 07-10-2021 Hematocrit (Bld) [Volume fraction] 41.6 % 37-47 [facility] Work Phone: Laboratory - Chemistry and C hemistry - challengeon 07-10-2021 ALP [Catalytic activity/Vol] 104 U/L 45-117 [facility] Work Phone: ALT [Catalytic activity/Vol] 31 U/L 13-56 [facility] Work Phone: CO2 [Moles/Vol] 28.0 mmol/L 21.0-32.0 [facility] Work Phone: Globulin (S) [Mass/Vol] 3.6 g/dL 2.2-4.2 [facility] Work Phone: [phone] Urea nitrogen/Creatinine [Mass ratio] 16.7 mg/mg 10-20 [facility] Work Phone: Laboratory - Hematology and Cell countson 07-10-2021 Erythrocyte distribution width (RBC) [Entitic vol] 45.2 fL 35.1-43.9 [facility] Work Phone: Erythrocyte distribution width (RBC) [Ratio] 13.2 % 11.6-14.6 [facility] Work Phone: [phone] Immature granulocytes/100 WBC (Bld) 0.500 % 0.0-0.9 [facility] Work Phone: Comment on above: IG% - Immature Granu locytes (promyelocytes, myelocytes and metamyelocytes) > 1% indicates that a LEFT SHIFT is Present. MCH (RBC) [Entitic mass] 30.7 pg 27.0-32.0 [facility] Work Phone: [phone] Nucleated RBC/100 WBC (Bld) [Ratio] 0 % 0-5 [facility] Work Phone: MCHC Auto (RBC) [Mass/Vol]on 07-10-2021 MCHC (RBC) [Mass/Vol] 32.7 g/dL 32-36 [facility]: No Panel Informationon 07-10 Estimated GFR (MDRD) Amer 63 mL/min >60 [facility] Work Phone: Comment on above: GFR Calc Estimated GFR (MDRD) Non-Af Amer 52 mL/min >60 [facility] Work Phone: Comment on above: Non- GFR Calc Platelets bldon 07-10-2021 Platelets (Bld) [#/Vol] 198 10*3/uL 150-450 [facility] Work Phone: Serum or plasma albumin marylou urement (mass/volume)on 07-10-2021 Albumin [Mass/Vol] 3.5 g/dL 3.2-5.0 [facility] Work Phone: Serum or plasma albumin/glob ulin mass ratioon 07-10-2021 Albumin/Globulin [Mass ratio] 1.0 {ratio} 0.9-2.4 [facility] Work Phone: Serum or plasma calcium marylou urement (mass/volume)on 07-10-2021 Calcium [Mass/Vol] 8.9 mg/dL 8.5-10.1 [facility] Work Phone: Serum or plasma creatinine m easurement (mass/volume)on 07-10-2021 Creatinine [Mass/Vol] 1.14 mg/dL 0.55-1.02 [facility] Work Phone: Comment on above: The validity of the calculated GFR & GFRAA in patients over 70 years has not been determined. Clinical correlation is essential. Serum or plasma urea nitroge n measurement (mass/volume)on 07-10-2021 Urea nitrogen [Mass/Vol] 19 mg/dL 7-18 [facility] Work Phone: Thin prep Papanicolaou smear with manual screeningon 07-10-2021 Thin prep Papanicolaou smear with manual screening 21 U/L 15-37 [facility] Work Phone: Thin prep Papanicolaou smear with manual screening 6 5-15 [facility] Work Phone: Absolute lymphocyte counton 04-30-2021 Lymphocytes Auto (Unsp spec) [#/Vol] 1.41 10*3/uL 0.83-4.51 [facility] Work Phone: Basophil percentageon 2021 Basophils/100 WBC (Bld) 1.4 % 0-1 [facility] Work Phone: [phone] Bilirubin [Mass/Vol] 0.40 mg/dL 0.20-1.00 [facility] Work Phone: Comment on above: For patients on eltr ombopag therapy, use of Dimension [place] TBIL is not recommended. Chloride [Moles/Vol] 105 mmol/L 98-107 [facility] Work Phone: Cholesterol [Mass/Vol] 199 mg/dL <200 [facility] Work Phone: Comment on above: <200 mg/dL Desirable 200-240 mg/dL Borderline >240 mg/dL High Risk Eosinophils/100 WBC (Bld) 5.2 % 0-5 [facility] Work Phone: Glucose [Mass/Vol] 271 mg/dL 74-106 [facility] Work Phone: Comment on above: Glucose result great er than or equal to 200 mg/dLsuggests DIABETES MELLITUS per A.D.A. criteria. Neutrophils (Bld) [#/Vol] 3.6 10*3/uL 2.0-7.7 [facility] Work Phone: Neutrophils/100 WBC (Bld) 63.3 % 47-70 [facility] Work Phone: Potassium [Moles/Vol] 3.7 mmol/L 3.5-5.1 [facility] Work Phone: Protein [Mass/Vol] 6.8 g/dL 6.4-8.2 [facility] Work Phone: Sodium [Moles/Vol] 139 mmol/L 136-145 [facility] Work Phone: Triglyceride [Mass/Vol] 98 mg/dL [facility] Work Phone: Comment on above: The drugs N-Acetylcy steine and Metamizole may falsely depress this assay.Serum Triglycerides Reference Interval Normal <150 mg/dL Borderline high 150 - 199 mg/dL High 200 - 499 mg/dL Very High > or = 500 mg/dL WBC (Bld) [#/Vol] 5.7 10*3/uL 4.4-11.0 [facility] Work Phone: Blood erythrocytes count (nu mber/volume)on 04-30-2021 RBC (Bld) [#/Vol] 4.44 10*6/uL 4.2-5.[address] [facility] Work Phone: Blood hemoglobin measurement (mass/volume)on 04-30-2021 Hemoglobin (Bld) [Mass/Vol] 13.7 g/dL 12.0-15.0 [facility] Work Phone: Blood lymphocytes/100 leukoc yteson 04-30-2021 Lymphocytes/100 WBC (Bld) 24.6 % 19-41 [facility] Work Phone: Blood monocytes/100 leukocyt eson 04-30-2021 Monocytes/100 WBC (Bld) 5.2 % 0-10 [facility] Work Phone: Blood platelet mean volumeon 04-30-2021 Platelet mean volume (Bld) [Entitic vol] 10.9 fL 6.2-12.0 [facility] Work Phone: Determination of erythrocyte mean corpuscular volume (MCV)on 04-30-2021 MCV (RBC) [Entitic vol] 93.5 fL 81-99 [facility] Work Phone: Hematocrit Auto (Bld) [Volum e fraction]on 04-30-2021 Hematocrit (Bld) [Volume fraction] 41.5 % 37-47 [facility] Work Phone: Laboratory - Chemistry and C hemistry - challengeon 04-30-2021 ALP [Catalytic activity/Vol] 115 U/L 45-117 [facility] Work Phone: ALT [Catalytic activity/Vol] 27 U/L 13-56 [facility] Work Phone: CO2 [Moles/Vol] 30.0 mmol/L 21.0-32.0 [facility] Work Phone: Globulin (S) [Mass/Vol] 3.5 g/dL 2.2-4.2 [facility] Work Phone: Urea nitrogen/Creatinine [Mass ratio] 12.6 mg/mg 10-20 [facility] Work Phone: Laboratory - Hematology and Cell countson 04-30-2021 Erythrocyte distribution width (RBC) [Entitic vol] 46.0 fL 35.1-43.9 [facility] Work Phone: Erythrocyte distribution width (RBC) [Ratio] 13.4 % 11.6-14.6 [facility] Work Phone: Immature granulocytes/100 WBC (Bld) 0.300 % 0.0-0.9 [facility] Work Phone: Comment on above: IG% - Immature Granu locytes (promyelocytes, myelocytes and metamyelocytes) > 1% indicates that a LEFT SHIFT is Present. MCH (RBC) [Entitic mass] 30.9 pg 27.0-32.0 [facility] Work Phone: Nucleated RBC/100 WBC (Bld) [Ratio] 0 % 0-5 [facility] Work Phone: MCHC Auto (RBC) [Mass/Vol]on 04-30-2021 MCHC (RBC) [Mass/Vol] 33.0 g/dL 32-36 [facility] Work Phone: No Panel Informationon 04-30 Estimated GFR (MDRD) Amer 65 mL/min >60 [facility] Work Phone: Comment on above: GFR Calc Estimated GFR (MDRD) Non-Af Amer 54 mL/min >60 [facility] Work Phone: Comment on above: Non- GFR Calc Thyroid Stimulating Hormone (TSH) 5.42 uIU/mL 0.358-3.74 [facility] Work Phone: Platelets bldon 04-30-2021 Platelets (Bld) [#/Vol] 206 10*3/uL 150-450 [facility] Work Phone: Serum or plasma albumin marylou urement (mass/volume)on 04-30-2021 Albumin [Mass/Vol] 3.3 g/dL 3.2-5.0 [facility] Work Phone: Serum or plasma albumin/glob ulin mass ratioon 04-30-2021 Albumin/Globulin [Mass ratio] 0.9 {ratio} 0.9-2.4 [facility] Work Phone: Serum or plasma calcium marylou urement (mass/volume)on 04-30-2021 Calcium [Mass/Vol] 9.0 mg/dL 8.5-10.1 [facility] Work Phone: Serum or plasma cholesterol in HDL measurement (mass/volume)on 04-30-2021 Cholesterol in HDL [Mass/Vol] 60 mg/dL [facility] Work Phone: Comment on above: The drugs N-Acetylcy steine and Metamizole may falsely depress this assay. Reference Range HDL <40 mg/dL Low HDL Cholesterol HDL >or= 60 mg/dL High HDL Cholesterol Serum or plasma cholesterol in VLDL measurement (mass/volume)on 04-30-2021 Cholesterol in VLDL [Mass/Vol] 20 mg/dL 5-40 [facility] Work Phone: Serum or plasma creatinine m easurement (mass/volume)on 04-30-2021 Creatinine [Mass/Vol] 1.11 mg/dL 0.55-1.02 [facility] Work Phone: Comment on above: The validity of the calculated GFR & GFRAA in patients over 70 years has not been determined. Clinical correlation is essential. Serum or plasma low density lipoprotein (LDL) cholesterol measurement (mass/volume)on 04-30-2021 Cholesterol in LDL [Mass/Vol] 119 mg/dL 0-130 [facility] Work Phone: Serum or plasma urea nitroge n measurement (mass/volume)on 04-30-2021 Urea nitrogen [Mass/Vol] 14 mg/dL 7-18 [facility] Work Phone: Thin prep Papanicolaou smear with manual screeningon 04-30-2021 Thin prep Papanicolaou smear with manual screening 19 U/L 15-37 [facility] Work Phone: Thin prep Papanicolaou smear with manual screening 4 5-15 [facility] Work Phone: FLUOROSCOPY IN OR/PAIN MGTon 04-09-2021 FLUOROSCOPY IN OR/PAIN MGT FLUOROSCOPY IN OR/PAIN MGT, FLUOROSCOPY IN OR/PAIN MGT Ordering Physician: Génesis Osorio, DO FLUOROSCOPY Clinical Statement: Pain Comparison: None FINDINGS: 2 spot fluoroscopic images were saved demonstrating needle placement and contrast injection at each knee. A total of 21 seconds fluoroscopy time was utilized. Please see the ordering clinician's report for full details. IMPRESSION: Documentation of fluoroscopy. This report was electronically signed by Jasmyn Villavicencio MD 04/09/2021 10:02 AM Reported By: JASMYN VILLAVICENCIO M.D. Signed By: JASMYN VILLAVICENCIO M.D. [facility] Righton INR Coag RelTime (Bld) Exam Date/Time: 12:30 ESTReason for Exam:Leg painReportEXAMINATION: XR Knee Complete Right [id number] HISTORY: 56-year-old female with history of leg pain.COMPARISONS: None available.FINDINGS: 4 films total. Tricompartmental degenerative changes seen in theright knee. No fracture or osteochondral lesion. Trace joint effusion ispresent. Enthesophyte seen at the quadriceps insertion.IMPRESSION:Tricom partmental degenerative changes of the right knee. Joint small jointeffusion. FINAL REPORT Dictated: 04/10/2017 4:18 pm Julien Carbajal SSigned (Electronic Signature): 04/10/2017 4:18 pmSigned by: Julien Carbajal Technologist: [facility] CNDSon 02-05-2017 CNDS HNO ID: [id number] thor: Gio Phelps) Maxervice: NeurosurgeryAuthor Type: Nurse PractitionerType: Discharge SummariesFiled: 04/30/2017 12:44 PMNote Text:This is a 56 yo female that was admitted on 02/04/17 for thoraciclaminectomy for insertion of SCS. Pt tolerate the procedure well AND wastransferred to neuro medical floor for further monitoring. She had noacute issues overnight AND was discharged to home in good condition withfollow up instructions given. A follow up appointment has already beenscheduled. No prescriptions were needed.Gio Zurita [phone] [facility] PROGRESSon 02-05-2017 PROGRESS HNO ID: [id number] thor: Gio Phelps) Maxervice: NeurosurgeryAuthor Type: Nurse PractitionerType: Progress NotesFiled: 02/05/2017 1:26 PMNote Text:INPATIENT PROGRESS NOTESERVICE DATE: 02/05/2017SERVICE TIME: 1:21 PMSUBJECTIVECHIEF COMPLAINT: Failed back syndromePRIMARY SERVICE: NeurosurgeryINTERVAL HPI: No acute issues reported per patient. She feels her pain iswell controlled AND would like to go home. She denies the need for any homegoing prescriptions.Current hospital medications:topiramate 100 mg tab(s) (TOPAMAX) 100 mg ORAL BIDvalsartan 40 mg tab(s) (DIOVAN) 40 mg ORAL DAILYhydroxychloroquine 200 mg (PLAQUENIL) 200 mg ORAL BIDDULoxetine 30 mg cap(s) (CYMBALTA) 30 mg ORAL DAILYtiZANidine 4 mg tab(s) (ZANAFLEX) 4 mg ORAL TID PRNDULoxetine 60 mg cap(s) (CYMBALTA) 60 mg ORAL AT BEDTIMElevothyroxine 150 mcg (SYNTHROID) 150 mcg ORAL DAILYdextrose 5% in NaCl 0.45% with 20 mEq/L KCl iv infusion 80 mL/hrINTRAVENOUS CONTINUOUSvancomycin iv piggyback 1 g in D5W 200 mL (VANCOCIN) 1 g INTRAVENOUS q 12HRmorphine 4-6 mg injection 4-6 mg INTRAVENOUS q 2 H PRNondansetron 4 mg tab(s) (ZOFRAN) 4 mg ORAL q 6 H PRNondansetron (PF) 4 mg injection (ZOFRAN) 4 mg INTRAVENOUS q 6 H PRNdocusate sodium 100 mg cap(s) (COLACE) 100 mg ORAL BIDpolyethylene glycol 3350 17 g packet (MIRALAX, GLYCOLAX) 17 g ORAL DAILYPRNoxyCODONE-acetamino phen 5-325 mg 1 tablet (PERCOCET) 1 tablet ORAL q 8 HPRNoxyCODONE IR 5 mg tab(s) (ROXICODONE) 5 mg ORAL q 8 H PRNOBJECTIVEPHYSICAL EXAM:BP 108/69 Pulse 68 Temp (Src) 97.9 (Oral) Resp 20 Ht 5' 4.016(1.63m) Wt 315 lb 0.6 oz (142.9kg) SpO2 94% BMI 54.05 kg/(m2). The patient is awake, alert AND oriented X3. Her speech is clear AND she isin NAD. PERRL - 3mm/brisk, EOMI COPE X4, Incision site dressings are C/D/I/Flat Pt is voiding AND +flatus.DATA:Diagnostic tests reviewed for today's visit:No new labsASSESSMENT/PLANActive Problems: Chronic pain POA: Yes Assessment AND Plan: 56 yo female POD#1 thoracic laminectomy forinsertion of SCS. Neuro exam is intact. Pain well controlled. Discharge instructionshave been given. Follow Up appointment has been scheduled. No Rxwritten. OK for disharge.SIGNATURE: Gio Zurita CNP PATIENT NAME: Taryn SelfDATE: February 05, 2017 : 1:21 PM PAGER: Alirio [facility] ANES Isak 02-04-2017 ANES POST HNO ID: [id number] thor: Dominguez Raeervice: AnesthesiologyAuthor Type: PhysicianType: Anesthesia PostOpFiled: 02/04/2017 7:00 PMNote Text:POST ANESTHESIA EVALUATION NOTESERVICE DATE: 02/04/2017SERVICE TIME: 7:00 PMDOB: 1960Vitals: 02/05/1712Temp: 36 ?C (96.8 ?F) 36.8 ?C (98.2 ?F) 36.9 ?C (98.4 ?F) 36.1 ?C (97 ?F) 02/04/17157BP: 135/111 146/70 144/84 135/82 02/04/1715Pulse: 67 73 64 83 02/04/1715Resp: 15 15 18 18 02/04/1715SpO2: 100% 100% 100% 98%Validated Vital Signs: YesPOST ANES STATUS: No apparent anesthetic complications. The patient isappropriately hydrated with stable respiratory and cardiovascular status.Patient has safe and adequate airway control. The patient has appropriatepain relief and no significant post operative nausea or vomiting. Thepatient has achieved baseline mental status.Further assessment by Anesthesia Service: NoneOther Remarks:SIGNATURE: Dominguez Crocker MD PATIENT NAME: Taryn SelfDATE: February 04, 2017 : 7:00 PM PAGER/CONTACT #: [facility] ANES PREOPon 02-04-2017 ANES PREOP HNO ID: [id number] thor: Xander Patelervice: AnesthesiologyAuthor Type: PhysicianType: Anesthesia PreOpFiled: 02/04/2017 7:36 AMNote Text: ANESTHESIOLOGY DAY OF SURGERY NOTESERVICE DATE: 02/04/2017SERVICE TIME: 7:34 AMDOB: 1960Procedure(s) (LRB):INSERTION STIMULATOR SPINAL CORD (N/A)Surgeon(s):Ashley AnneEstimated body mass index is 54.05 kg/(m2) as calculated from thefollowing: Height as of this encounter: 162.6 cm (5' 4.02). Weight as of this encounter: 142.9 kg (315 lb 0.6 oz).Most recent hematocrit and potassium results:Hematocrit 41.2 01/21/2017Potassium 4.3 01/21/2017ANES DOS/PREOP NOTE:Vitals: 734BP: 166/89Pulse: 80Resp: 18Temp: 36.2 ?C (97.2 ?F)TempSrc: Temporal ArterySpO2: 100%Weight: (!) 142.9 kg (315 lb 0.6 oz)Height: 162.6 cm (5' 4.02)ACTIVE PROBLEM LISTHypothyroidismChest PainObesityGlucose Intolerance (Impaired Glucose Tolerance)HematuriaAntinucl ear Factor PositiveFibromyalgiaHtn (Hypertension)Lbp (Low Back Pain)Graves DiseasePAST MEDICAL HISTORYDiagnosis Date- Constipation- Depression- Fibromyalgia- Foot drop right- Graves disease graves disease- HTN (hypertension)- Hypothyroid- LBP (low back pain) DDD lumbar spine, arthropathy of lumbar facet joint- Mitral valve prolapse- Obesities, morbid (HCC)- Other malaise and fatigue- RLS (restless legs syndrome)PAST SURGICAL HISTORYProcedure Laterality Date- DELIVERY ONLY , low cervical x2- LIGATE FALLOPIAN TUBE Tubal ligation- PAST SURGICAL HISTORY OF thymus- enlarged- PAST SURGICAL HISTORY OF eye, leftFAMILY HISTORYProblem Relation Age of Onset- Diabetes Paternal GrandfatherSocial History:Social HistorySubstance Use Topics- Smoking status: Former Smoker Quit date: 09/23/1999- Smokeless tobacco: Former User Quit date: 04/10/1999- Alcohol use NoNo current facility-administered medications on file prior to encounter.Current Outpatient Prescriptions on File Prior to Encounter:DULoxetine (CYMBALTA) 20 mg capsule Take 30 mg by mouth once daily. 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)- Cleocin [Clindamyci*- Penicillins RashDOS EXAM: Adequate NPO Status: YesAnesthetic Risks, Benefits, Alternatives, Personnel and Consent Discussed:YesPatient agrees to proceed: YesPrevious Anesthesia: No history of adverse eventAirway Assessment: MP 2; Neck ROM: Full ROM without neurologic symptoms;Airway Evaluation: Thick neckSymptoms of Sleep Apnea: Hypertension, BMI > 35 and Age over 50 (56 yearold)Dentition: Teeth intactAdditional Physical Exam:Lungs: Patient health status unchanged since recent history and physical.See history and physical for exam findings.Cardiac: Patient health status unchanged since recent history andphysical. See history and physical for exam findings.Additional Pertinent Findings: N/ABlood Products: Not anticipated for this procedureAnesthetic Plan: GeneralAnesthetic Monitoring: Standard ASA MonitorsPain Management Plan: Parenteral or OralASA Class: 3Other Medical Problems: morbid obesityChronic Beta Sherice medication administered within 24 hours: N/AI have interviewed and examined the patient. I have reviewed the medicalrecord and/or the pre-anesthesia evaluation, pertinent labs, and testresults.Significant changes in the patient's condition since the History andPhysical, not otherwise documented in primary service progress notes: NoThis contains updated information obtained within 48 hours ofSurgery/Procedure.SIGNATU RE: Xander Lawrence MD PATIENT NAME: Taryn SelfDATE: February 04, 2017 : 7:34 AM CSN: [id number] [facility] BRIEF OP NOTon 02-04-2017 BRIEF OP NOT HNO ID: [id number] thor: Ashley Arndt: NeurosurgeryAuthor Type: PhysicianType: Brief Op NoteFiled: 02/04/2017 9:46 AMNote Text:BRIEF OPERATIVE / PROCEDURE NOTELOG ID: [id number]/Procedure Date: 02/04/2017Incision/Procedur e Start Time: 8:56 AMIncision Close/Procedure End Time:Surgeon(s)/Procedurali st(s) and Director [employer](s):Surgeon(s) and Role: * Ashley Brambila Additional StaffProcedure(s): Insertion of thoracic perc SCSAnesthesia: GeneralFindings: Medtronic, top of D7Onrgloaju Blood Loss: 0 mlSpecimens: NoneComplications: NonePre-Op/Pre-Procedure Diagnosis: Failed back syndromePost-Op/Post-Proced ure Diagnosis: * No post-op diagnosis entered *sameSIGNATURE: Ashlye Anne MD PATIENT NAME: Taryn SelfDATE: February 04, 2017 : 9:45 AM PAGER/CONTACT #: [facility] FLUORO UP TO 1 HOURon 2016 FLUORO UP TO 1 HOUR Performed at [facility] APPROVED BY: Chato Alicia MD IMPRESSION: 1.7 minutes of fluoroscopy time was utilized for this exam. Normal [facility] NURSING PROGon 02-04-2017 NURSING PROG HNO ID: [id number] Author: Trini MarshallRn) CORRINE Sinclair Service: (none) Author Type: Registered Nurse Type: Nursing Progress Note Filed: 02/04/2017 2:37 PM Note Text: Family visits. Ambulated to for void with assistance of 2. [facility] NURSING PROG HNO ID: [id number] Author: Trini Braun) CORRINE Sinclair Service: (none) Author Type: Registered Nurse Type: Nursing Progress Note Filed: 02/04/2017 12:08 PM Note Text: Family updated. [facility] OPERATIVE NOon 02-04-2017 OPERATIVE NO HNO ID: [id number] thor: Ashley AnneSer: NeurosurgeryAuthor Type: PhysicianType: Operative ReportFiled: 02/04/2017 4:29 PMNote Text:[facility] - Operative ReportSURGEON: SRIKANTH ChatterjeeATIENT NAME: TARYN SELF LMRN: [id number] CSN: [id number] OF SURGERY: 02/04/2017DATE OF : 1960 SEX/AGE: F/56PATIENT TYPE: A HOSP SVC: NEUS LOCATION: OSQE99AATB OF SURGERY: 02/04/2017SURGEON: CHRIS ChatterjeeEFERRANNABELLA PHYSICIAN: SRIKANTH ChatterjeeREOPERATIVE DIAGNOSIS: Failed back syndrome.POSTOPERATIVE DIAGNOSIS: Failed back syndrome.PROCEDURE: Insertion of thoracic spinal cord stimulator, Medtronicsystem, top of T8.PUMP ASSEMBLER: Bobbi Treviño PA-C.ANESTHESIA: General endotracheal.ESTIMATED BLOOD LOSS: Minimal.SPECIMENS: None.DRAINS: None.COMPLICATIONS: None.CONDITION: Stable, extubated to PACU.INDICATIONS FOR PROCEDURE: The patient is a 56-year-old female withhistory of chronic back and bilateral lower extremity pain, who hasfailed conservative medical management, was subsequently trialed by PainManagement with a spinal cord stimulator. She had excellent pain reliefand was subsequently referred for consideration of permanent implant. Wediscussed procedure in detail including all the alternatives, risks, andbenefits. All of her questions were answered to her satisfaction. Aftershe demonstrated understanding and implications of the conversation, sherequested to proceed with surgery and informed consent was obtained.DESCRIPTION OF PROCEDURE: The patient was brought to the operating roomand after adequate general anesthesia was induced, the patient was placedprone on the OR table. All pressure points were inspected and paddedadequately. SCDs placed on the patient's bilateral lower extremities.Ocular lubricant placed in the eyes, the eyes were taped shut.Preoperative antibiotics were administered. Following this, thepatient's lumbar region as well as the left buttocks were prepped anddraped in the standard surgical fashion. Battery incision was marked withthe patient in the preoperative area. Next, the intraoperativefluoroscopy wasbrought in for verifying the upper lumbar region for location of themidline skin incision for entry into the posterior epidural space. Bothincisions were widely infiltrated with local anesthetic withoutepinephrine, incised with a 15 blade and carried down with monopolarelectrocautery into the subcutaneous tissue down the level of the fasciain the lumbar region initially. Next, a long curved tip Tuohy needle wasintroduced in the posterior epidural space via the interlaminar spacewith loss of resistance syringe. This was done without difficulty and thefirst electrode was introduced into the posterior epidural space andguided under AP and lateral fluoroscopy until it was docked at the top ofT8 to the right of midline. A 2nd curved tip Tuohy needle was introducedto the left spinous process through the interlaminar space into theposterior epidural space with loss of resistance technique and a 2ndelectrode introduced and guided under AP and lateralfluoroscopy until was docked just to the left of midline to the top of A4rmyfa to that of the other electrode with electrodes in the T9-10interspace. At that point, with radiographic confirmation of goodpositioning, we began withintraoperative electrophysiologic testing, which demonstrated eachelectrode was quite midline, but had good ipsilateral unilateralactivation of EMG correlating with its position. At that point, havinggood electrodiagnostic testing, we proceeded to anchor the electrodesinto their final position after withdrawing the guidewires and Tuohyneedles. The anchors were added to the electrode tails and secured tothe fascia with simple interrupted 0 Nurolon sutures. Final x-raydemonstrated no change in final position of the electrodes. At thatpoint, the battery incision was opened sharply with a 15 blade, carrieddown with monopolar electrocautery and the subcutaneous tissue and apocket developed inferiorly of the incision. The tunneler was passedfrom the buttock incision to the lumbar incision, electrodes tunnelledthrough leaving a strain relief loop in the lumbar incision. Theelectrodes were then connected to the battery and tested for lowimpedances, which there were. The battery was then tucked into the pocketwith the excess electrode coiled behind the battery as the second strainrelief loop in the battery tacked down with 2 simple interrupted 0Nurolon sutures. Both west were copiously irrigated with antibioticsolution, inspected for final meticulous hemostasis, closed in layerswith simple inverted interrupted 2-0 Vicryl suture and skin closed with4-0 and 3-0 subcuticular Monocryl, followed by Exofin and silver steriledressing. Sponge, needle, and instrument counts were all correct at theend of the case. The patient appeared to tolerate the procedure wellwithout apparent complication and the neurophysiological monitoringremained stable from beginning to the end of the case.Ashley Anne MDNeurosurgeryMRH:modlD: 02/04/2017 09:51:39T: 02/04/2017 10:39:42Job #: [id number] Normal [facility] THORACIC SPINE 2 VIEWSon THORACIC SPINE 2 VIEWS Performed at [facility] APPROVED BY: Ashley Payne MD EXAM TITLE: THORACIC SPINE DATE: 02/04/2017 08:55 COMPARISON: None. CLINICAL INDICATION/HISTORY: Radiculopathy TECHNIQUE: 3 fluoroscopic images of the lower thoracic and upper lumbar spine are presented. 1 minute and 7 seconds of fluoroscopy time was utilized. FINDINGS: Details limited by fluoroscopic technique. Images show placement of spinal stimulator leads in the region of the lower thoracic spinal canal. IMPRESSION: Intraoperative images as described above. Please refer to operative report for complete findings. Normal [facility] Basic Panelon 01-21-2017 Creatinine 1.32 mg/dL High 0.51-0.95 [facility] Comment on above: Performed By: #### P 8 ####[address] [address] Urea nitrogen 23 mg/dL High 7-18 [facility] Comment on above: Performed By: #### P 8 ####[place] [address] Anion gap 10 mmol/L Normal 8-16 [facility] Comment on above: Performed By: #### P 8 ####[address] [address] Calcium 8.9 mg/dL Normal 8.5-10.1 [facility] Comment on above: Performed By: #### P 8 ####[place] [address] CO2 27 mmol/L Normal 21-32 [facility] Comment on above: Performed By: #### P 8 ####[address] [address] Glucose mass conc 90 mg/dL Normal 70-99 [facility] Comment on above: Performed By: #### P 8 ####[address] [address] Chloride 108 mmol/L High 98-107 [facility] Comment on above: Performed By: #### P 8 ####[address] [address] Potassium molar conc 4.3 mmol/L Normal 3.5-5.1 [facility] Comment on above: Performed By: #### P 8 ####[place] [address] Sodium 141 mmol/L Normal 136-145 [facility] Comment on above: Performed By: #### P 8 ####[address] [address] HISTORY PHYSICALon 7 HISTORY PHYSICAL HNO ID: [id number] thor: Heather Villalba ([facility]) BucurService: (none)Author Type: Nurse PractitionerType: HANDPFiled: 01/21/2017 1:47 PMNote Text: HISTORY AND PHYSICAL EXAMINATIONSERVICE DATE: 01/21/2017SERVICE TIME: 1342PRINORTHERN COCHISE [facility]ITALY CARE PHYSICIAN: Janet Zafar, CNPREASON FOR VISIT:Taryn Self is a 56 year old female who is scheduled for surgerywith Dr. Brandt Anne. Here for pre op HANDP.The patient has the following:ACTIVE PROBLEM LISTHypothyroidismChest PainObesityGlucose Intolerance (Impaired Glucose Tolerance)HematuriaAntinucl ear Factor PositiveFibromyalgiaHtn (Hypertension)Lbp (Low Back Pain)Graves DiseaseSUBJECTIVECHIEF COMPLAINT: Back painHPI: 56 year old female reports with back pain. Rates pain 10/10 . Backpain for 5+years- worse with time. Increase pain with ambulation andsitting for long periods of time. Cold weather also increases pain. Painradiates down bilateral lower extremities. Constant ache. Pain medication(percocet)-minima l pain relief. Has had back injections in thepast-temporary pain relief. Per patient herniated discs. Denies traumaor injury. Temporary stimulator 6 months ago- brought pain down to 0/10-best week of my life. Thoracic MRI 12/2016.PAST MEDICAL HISTORYDiagnosis Date- Constipation- Depression- Fibromyalgia- Foot drop right- Graves disease graves disease- HTN (hypertension)- Hypothyroid- LBP (low back pain) DDD lumbar spine, arthropathy of lumbar facet joint- Mitral valve prolapse- Obesities, morbid (HCC)- Other malaise and fatigue- RLS (restless legs syndrome)PAST SURGICAL HISTORYProcedure Laterality Date- DELIVERY ONLY , low cervical x2- LIGATE FALLOPIAN TUBE Tubal ligation- PAST SURGICAL HISTORY OF thymus- enlarged- PAST SURGICAL HISTORY OF eye, leftFAMILY HISTORYProblem Relation Age of Onset- Diabetes Paternal GrandfatherSOCIAL HISTORY:Social History Marital status: Spouse name: Ovidio Years of education: Number of children: 2Social History Main Topics Smoking status: Former Smoker Packs/day: 0.00 Years: 0.00 Quit date: 09/23/1999 Smokeless status: Former User Quit date: 04/10/1999 Alcohol use: No Drug use: No Sexual activity: Not CurrentlyPrior to Admission medications as of 01/21/17 1310Medication Sig Last Dose TakingDULOXETINE HCL (CYMBALTA ORAL) Take 60 mg by mouth once daily. At hs Yestopiramate (TOPAMAX) 100 mg tablet Take 100 mg by mouth twice daily. YesLevothyroxine 150 mcg cap Take 150 mcg by mouth once daily. YesoxyCODONE-acetaminophen (PERCOCET 10) 10-325 mg tablet Take 1 tablet bymouth every 8 hours as needed. YesVALSARTAN ORAL Take 20 mg by mouth once daily. Yeshydroxychloroquine (PLAQUENIL) 200 mg tablet Take 200 mg by mouth twicedaily. YestiZANidine HCl 4 mg capsule Take 4 mg by mouth three times daily asneeded. YesLACTOBACILLUS RHAMNOSUS GG (CULTURELLE ORAL) Take by mouth once daily.YesDULoxetine (CYMBALTA) 20 mg capsule Take 30 mg by mouth once daily. 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)- Cleocin [Clindamyci*- Penicillins RashREVIEW OF SYSTEMS:PAIN ASSESSMENT:General: Denies fever, chills, and unexpected weight change.Neuro: Denies dizziness and headaches.Respiratory: Denies SOB.Cardiovascular: Denies CP and palpitations.GI: Denies abd pain and N/V +Constipation per pt r/t pain medsGU: Denies dysuria.Endocrine: borderline diabetes.Hematology: Denies history of bleeding or clotting disorder.Psych:+anxiety/dep ression.Musculoskeletal: lower back painSkin: Denies open sores and rashes.OBJECTIVEPHYSICAL EXAM:VITALS:BP 154/93 Pulse 80 Temp 97 Resp 18 Ht 5' 4 (1.63m) Wt 315 lb(142.9kg) BMI 54.04 kg/(m2).General: NAD. Cooperative.Skin: Skin is warm, no rashes, and no open sores.HEENT: Normocephalic.Cardiovascula r: Normal S1 AND S2. RRRLungs: CTA. No respiratory distress.Abdomen: Soft. ObeseExtremities: paid radiates down bilater lower extremitiesNeurological: Alert and oriented to person, place, and time.Pulses: radial pulses +2ASSESSMENT/PLANMETS:Climb a flight of stairs or walk up a hill (5.50 METs)ANESTHESIA FINDINGS:Intubation History: No history of difficult intubationSignificant Anesthesia Considerations: NonePLANDiagnosis: Radiculopathy, lumbar regionPlanned Procedure: INSERTION STIMULATOR SPINAL CORDCONSULTS:Per patient no medical optimization requested from surgeon.The Following Tests/Procedures Have Been Initiated:CBC, BMP and MRSA order from APNChlorhexidine soap given to patient. Patient said several years ago shedeveloped a rash from soap while working with [employer].Instructed patient to wash foot with soap to make sure she does not have areaction. If no reaction then wash back with soap the night before andmorning of surgery. Patient verbally agreed.Planned Anesthetic: generalInstructions Given to Patient:Patient given verbal and written preop instructions and voicescomprehension and compliance.SIGNATURE: Heather Ferrer CNP PATIENT NAME: Taryn Sandoval AramisDATE: January 21, 2017 : 8:19 AM PAGER/CONTACT #: Alirio [facility] HOSPon 01-21-2017 HOSP PAT (AKPSTB) -------CARMELITATARYN FAYE ([id number]) 1960 FDate Time Provider Qxidlsaslj18/1/17 1:00 PM [facility] During your visit today, we recorded the following information about you: Temperature Pulse Respiration Blood pressure 97 degrees 80/minute 18/minute 154/93 Weight Height 142.9 kg 1.626 Darrell Ferrer CNP 01/21/2017 8:19 AM SignedPATIENT PREOPERATIVE INSTRUCTIONSElkhart General Hospital: [phone], [address] [place], [place] [address]Qhujcma Restrictions:- Nothing to eat or drink after midnight except for a sip of water withapproved medications.Blood Thinning Medications:- Stop NSAIDS (Ibuprofen, Advil, Aleve, Motrin, Celebrex, Mobic, etc.) 5-6 daysbefore surgery, or as directed by your surgeon.- Do NOT stop aspirin or other anticoagulants (Coumadin, Plavix, and Xarelto)without consulting with your mechanic chief or prescribing physician.- Stop Vitamin E, ALL multi-vitamins, herbals and dietary supplements 5-6 daysbefore surgery.- You may take Tylenol (Acetaminophen) or any of your pain medications that donot contain aspirin or NSAIDS as needed.Medications:Approved medications to take the morning of surgery with a sip of water: BP,Heart, thyroid, psych, seizure, and pain medications (excluding NSAIDS). Useinhalers as prescribed. Please bring inhalers. Call PCP or clinical analyst for directions regarding your diabetes medicationsfor the night before and day of surgery.If you start any new medications after today's visit, please contact thesurgery center above.Important Reminders:- If you use CPAP/BIPAP, bring the machine with you to the surgery center.- If you are prescribed inhalers for breathing, continue using them AND bringthem to the surgery center.- Candy, mints, gum and tobacco products are NOT permitted the morning ofsurgery.- Hearing aids, dentures and glasses may be worn the morning of surgery.- NO jewelry, body piercings, makeup, hairpins or contacts are to be worn theday of surgery.If you develop symptoms such as a fever, cold, or flu, or have other changes [facility] within TWO DAYS of scheduled surgery or the morning of surgery,please contact the surgery center above.Personal Belongings:- Leave ALL valuables and money at home or with family members.Please arrive 2 hours before surgeryPlease be aware that emergency situations arise, which may delay or change yoursurgical time. If this happens, we will notify you as soon as possible andregret any inconvenience.Heather Ferrer CNP 01/21/2017 1:47 PM Addendum HISTORY AND PHYSICAL EXAMINATIONSERVICE DATE: 01/21/2017SERVICE TIME: [facility] BARRETT Klein FOR VISIT:Taryn Self is a 56 year old female who is scheduled for surgery withDr. Brandt Anne. Here for pre op HANDamp;P.The patient has the following:ACTIVE PROBLEM LISTHypothyroidismChest PainObesityGlucose Intolerance (Impaired Glucose Tolerance)HematuriaAntinucl ear Factor PositiveFibromyalgiaHtn (Hypertension)Lbp (Low Back Pain)Graves DiseaseSUBJECTIVECHIEF COMPLAINT: Back painHPI: 56 year old female reports with back pain. Rates pain 10/10 . Back painfor 5+years- worse with time. Increase pain with ambulation and sitting forlong periods of time. Cold weather also increases pain. Pain radiates downbilateral lower extremities. Constant ache. Pain medication (percocet)-minimalpain relief. Has had back injections in the past-temporary pain relief. Perpatient herniated discs. Denies trauma or injury. Temporary stimulator 6months ago- brought pain down to 0/10- ANDquot;best week of my life.ANDquot;Thoracic MRI 12/2016.PAST MEDICAL HISTORYDiagnosis Date- Constipation- Depression- Fibromyalgia- Foot drop right- Graves disease graves disease- HTN (hypertension)- Hypothyroid- LBP (low back pain) DDD lumbar spine, arthropathy of lumbar facet joint- Mitral valve prolapse- Obesities, morbid (HCC)- Other malaise and fatigue- RLS (restless legs syndrome)PAST SURGICAL HISTORYProcedure Laterality Date- DELIVERY ONLY , low cervical x2- LIGATE FALLOPIAN TUBE Tubal ligation- PAST SURGICAL HISTORY OF thymus- enlarged- PAST SURGICAL HISTORY OF eye, leftFAMILY HISTORYProblem Relation Age of Onset- Diabetes Paternal GrandfatherSOCIAL HISTORY:Social History Marital status: Spouse name: Ovidio Years of education: Number of children: 2Social History Main Topics Smoking status: Former Smoker Packs/day: 0.00 Years: 0.00 Quit date: 09/23/1999 Smokeless status: Former User Quit date: 04/10/1999 Alcohol use: No Drug use: No Sexual activity: Not CurrentlyPrior to Admission medications as of 01/21/17 1310Medication Sig Last Dose TakingDULOXETINE HCL (CYMBALTA ORAL) Take 60 mg by mouth once daily. At hs Yestopiramate (TOPAMAX) 100 mg tablet Take 100 mg by mouth twice daily. YesLevothyroxine 150 mcg cap Take 150 mcg by mouth once daily. YesoxyCODONE-acetaminophen (PERCOCET 10) 10-325 mg tablet Take 1 tablet by mouthevery 8 hours as needed. YesVALSARTAN ORAL Take 20 mg by mouth once daily. Yeshydroxychloroquine (PLAQUENIL) 200 mg tablet Take 200 mg by mouth twice daily.YestiZANidine HCl 4 mg capsule Take 4 mg by mouth three times daily as needed.YesLACTOBACILLUS RHAMNOSUS GG (CULTURELLE ORAL) Take by mouth once daily. YesDULoxetine (CYMBALTA) 20 mg capsule Take 30 mg by mouth once daily. 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)- Cleocin [Clindamyci*- Penicillins RashREVIEW OF SYSTEMS:PAIN ASSESSMENT:General: Denies fever, chills, and unexpected weight change.Neuro: Denies dizziness and headaches.Respiratory: Denies SOB.Cardiovascular: Denies CP and palpitations.GI: Denies abd pain and N/V +Constipation per pt r/t pain medsGU: Denies dysuria.Endocrine: borderline diabetes.Hematology: Denies history of bleeding or clotting disorder.Psych:+anxiety/dep ression.Musculoskeletal: lower back painSkin: Denies open sores and rashes.OBJECTIVEPHYSICAL EXAM:VITALS:BP 154/93 Pulse 80 Temp 97 Resp 18 Ht 5' 4ANDquot; (1.63m) Wt 315 lb(142.9kg) BMI 54.04 kg/(m2).General: NAD. Cooperative.Skin: Skin is warm, no rashes, and no open sores.HEENT: Normocephalic.Cardiovascula r: Normal S1 ANDamp; S2. RRRLungs: CTA. No respiratory distress.Abdomen: Soft. ObeseExtremities: paid radiates down bilater lower extremitiesNeurological: Alert and oriented to person, place, and time.Pulses: radial pulses +2ASSESSMENT/PLANMETS:Climb a flight of stairs or walk up a hill (5.50 METs)ANESTHESIA FINDINGS:Intubation History: No history of difficult intubationSignificant Anesthesia Considerations: NonePLANDiagnosis: Radiculopathy, lumbar regionPlanned Procedure: INSERTION STIMULATOR SPINAL CORDCONSULTS:Per patient no medical optimization requested from surgeon.The Following Tests/Procedures Have Been Initiated:CBC, BMP and MRSA order from APNChlorhexidine soap given to patient. Patient said several years ago shedeveloped a rash from soap while working with [employer].Instructed patient to wash foot with soap to make sure she does not have areaction. If no reaction then wash back with soap the night before and morningof surgery. Patient verbally agreed.Planned Anesthetic: generalInstructions Given to Patient:Patient given verbal and written preop instructions and voices comprehensionand compliance.SIGNATURE: Heather Ferrer CNP PATIENT NAME: Taryn SelfDATE: January 21, 2017 : 8:19 AM PAGER/CONTACT #:Referring Provider: ASHLEY ANNE [[id number]]Allergies As of Date: 01/21/2017 Noted Allergy ReactionADHESIVE TAPE-SILICONES 11/12/2011 2 - RashCHLOROXYLENOL 06/16/2005 14 - Other: See Comments Comments: Per patient no recent allergy r/t soap (several years ago while working with [employer])CLEOCIN (CLINDAMYCIN HCL) 06/16/2005PENICILLINS 06/16/2005 2 - RashDate Reviewed: 01/21/2017Reviewed by: Heather Ferrer - Fully AssessedReason for Visit: Back Pain [12]Primary Visit Diagnosis:Pre-op exam [Z01.818]Order(s):CBC [SQCBC] Order #: [id number] FUTURE BASIC METABOLIC PNL [SQBMP] Order #: [id number] FUTURE MRSA/STAPH AUREUS CULTURE SCRN [SQSANSAL] Order #: [id number] FUTUREPrescriptions as of 01/21/2017 Sig: CYMBALTA ORAL Take 60 mg by mouth once mel* TOPIRAMATE 100 MG TABLET Take 100 mg by mouth twice da* LEVOTHYROXINE 150 MCG CAPSULE Take 150 mcg by mouth once da* OXYCODONE-ACETAMINOPHEN 10 MG* Take 1 tablet by mouth every * VALSARTAN ORAL Take 20 mg by mouth once mel* HYDROXYCHLOROQUINE 200 MG TAB* Take 200 mg by mouth twice da* TIZANIDINE 4 MG CAPSULE Take 4 mg by mouth three time* CULTURELLE ORAL Take by mouth once daily. DULOXETINE 20 MG CAPSULE,JULIA* Take 30 mg by mouth once mel*Problem List As Of Date 01/21/2017 Noted Resolved Hypothyroidism [E03.9] INVALID FOR* Chest pain [R07.9] INVALID FOR* Obesity [E66.9] INVALID FOR* Glucose intolerance (impaired glucose tolerance*INVALID FOR* Hematuria [R31.9] INVALID FOR* Antinuclear factor positive [R76.8] INVALID FOR* Fibromyalgia [M79.7] INVALID FOR* HTN (hypertension) [I10] INVALID FOR* LBP (low back pain) [M54.5] INVALID FOR* Graves disease [E05.00] More... Other instructions from your clinician: PATIENT PREOPERATIVE INSTRUCTIONS [facility]: [phone], [address] [place] [id number] Dietary Restrictions: - Nothing to eat or drink after midnight except for a sip of water with approved medications. Blood Thinning Medications: - Stop NSAIDS (Ibuprofen, Advil, Aleve, Motrin, Celebrex, Mobic, etc.) 5-6 days before surgery, or as directed by your surgeon. - Do NOT stop aspirin or other anticoagulants (Coumadin, Plavix, and Xarelto) without consulting with your mechanic chief or prescribing physician. - Stop Vitamin E, ALL multi-vitamins, herbals and dietary supplements 5-6 days before surgery. - You may take Tylenol (Acetaminophen) or any of your pain medications that do not contain aspirin or NSAIDS as needed. Medications: Approved medications to take the morning of surgery with a sip of water: BP, Heart, thyroid, psych, seizure, and pain medications (excluding NSAIDS). Use inhalers as prescribed. Please bring inhalers. Call PCP or clinical analyst for directions regarding your diabetes medications for the night before and day of surgery. If you start any new medications after today's visit, please contact the surgery center above. Important Reminders: - If you use CPAP/BIPAP, bring the machine with you to the surgery center. - If you are prescribed inhalers for breathing, continue using them AND bring them to the surgery center. - Candy, mints, gum and tobacco products are NOT permitted the morning of surgery. - Hearing aids, dentures and glasses may be worn the morning of surgery. - NO jewelry, body piercings, makeup, hairpins or contacts are to be worn the day of surgery. If you develop symptoms such as a fever, cold, or flu, or have other changes to your health within TWO DAYS of scheduled surgery or the morning of surgery, please contact the surgery center above. Personal Belongings: - Leave ALL valuables and money at home or with family members. Please arrive 2 hours before surgery Please be aware that emergency situations arise, which may delay or change your surgical time. If this happens, we will notify you as soon as possible and regret any inconvenience.Medications Discontinued During This Encounter levothyroxine 175 mcg ORAL tablet 0 04/10/2010 01/21/2017 Class: Med Update Route: ORAL Sig: Take one(1) tablet daily. Disc: Erroneous entry oxyCODONE ER (OXYCONTIN) 15 mg 12 hr* 01/21/2017 Class: Historical Med Route: ORAL Sig: Take 15 mg by mouth four times daily. Disc: Erroneous entry pregabalin (LYRICA) 100 mg capsule 01/21/2017 Class: Historical Med Route: ORAL Sig: Take 150 mg by mouth three times daily. Disc: Erroneous entry triamterene-hydrochlorothia zide 37.5* 01/21/2017 Class: Historical Med Route: ORAL Sig: Take 1 tablet by mouth once daily. Take one half tablet daily Disc: Erroneous entryEncounter Number: [id number] Status:Closed by HEATHER FERRER CNP on 01/21/17 Normal [facility] Hemogramon 01-21-2017 Erythrocyte distribution width Auto Ratio (RBC) 13.3 % Normal 11.7-14.4 [facility] Comment on above: Performed By: #### C BC1 ####[facility] [place], [place] [address] Erythrocytes (RBC) 4.39 mil/cmm Normal 3.93-5.22 [facility] Comment on above: Performed By: #### C BC1 ####[facility] [place], [place] [address] Hematocrit (HCT) 41.2 % Normal 34.1-44.9 [facility] Comment on above: Performed By: #### C BC1 ####[place] [address] Hemoglobin mass conc (Bld) 13.6 g/dL Normal 11.2-15.7 [facility] Comment on above: Performed By: #### C BC1 ####[place] [address] MCH 31.0 pg Normal 25.6-32.2 [facility] Comment on above: Performed By: #### C BC1 ####[place] [address] MCHC mass conc (RBC) 33.0 % Normal 31.6-34.8 [facility] Comment on above: Performed By: #### C BC1 ####[place] [address] MCV 93.8 fL Normal 79.4-94.8 [facility] Comment on above: Performed By: #### C BC1 ####[place] [address] Platelet mean volume (PMV) 10.6 fL Normal 9.4-12.3 [facility] Comment on above: Performed By: #### C BC1 ####[place] [address] Platelets 229 thou/cmm Normal 182-369 [facility] Comment on above: Performed By: #### C BC1 ####[place] [address] RDW SD 46.0 fl Normal 36.4-46.3 [facility] Comment on above: Performed By: #### C BC1 ####[place] [address] WBC (Leukocytes) 6.20 thou/cmm Normal 3.98-10.04 [facility] Comment on above: Performed By: #### C BC1 ####[facility] [place], [place] [address] MDRD GFRon 01-21-2017 eGFR (non-black) 41.89 mL/min/{1.73_m2} Normal > 60mL/min/ 1.73m2 [facility] Comment on above: Result Comment: If t he patient is , multiply the result by 1.210. Performed By: #### G FR ####[facility] [place] [id number] MRSA/MSSA Screenon 7 MRSA/MSSA Screen Test performed at [facility] No Staph aureus or MRSA detected. Normal [facility] Comment on above: Performed By: #### P STSS ####[address] [address] MRI THORACIC SPINE W/O CONTR Shayy 12-24-2016 MRI THORACIC SPINE W/O CONTRAST Performed at [facility] APPROVED BY: Jacoby Carrillo MD EXAM TITLE: MRI THORACIC SPINE WITHOUT CONTRAST DATE:12/24/2016 11:41 COMPARISON: None. CLINICAL INDICATION/HISTORY: Failed back syndrome, preoperative prior to spinal cord stimulator placement TECHNIQUE: Multiplanar multi-sequence images were performed of the thoracic spine including T2 and T1 axial and sagittal images. Images were performed without contrast FINDINGS:The thoracic vertebral bodies are maintained in height and alignment.Marrow signal is within normal limits.Thoracic spinal cord appears normal with no focal lesion seen. Conus terminates normally.At C3-C4 level, minimal right posterior spurs effacing the ventral thecal sac.At C5-6 level, small midline spurs indenting the ventral aspect of the thecal sac T2 axial image 13.At T7-T8 level, small posterior spurs effacing the ventral aspect of the thecal sac.No evidence of a soft disc herniation. No specific paraspinous soft tissue abnormality is seen. IMPRESSION: 1. Mild degree multilevel degenerative changes listed above.2. No spinal cord pathology.3. No evidence of soft disc herniation or cord compression. Normal [facility] PROGRESSon 11-12-2016 PROGRESS HNO ID: [id number] Author: Vania Keita) Carmelo Service: (none) Author Type: School Curriculum Developer Type: Progress Notes Filed: 11/12/2016 9:11 AM Note Text: The patient did not show for this appointment. Vania Burris MA [facility] CNOVon 11-11-2016 CNOV Office Visit (AGGENS5) --------ARAMISTARYN Sandoval ([id number]) 1960 FDate Time Provider Department11/11/16 9:30 AM ANN MARIE DELANEY ([facility]) AGGENS5 During your visit today, we recorded the following information about you:Vania Burris MA 11/12/2016 9:11 AM SignedThe patient did not show for this appointment.Vania Burris MAAllergies As of Date: 11/11/2016 Noted Allergy ReactionADHESIVE TAPE-SILICONES 11/12/2011 2 - RashCHLOROXYLENOL 06/16/2005CLEOCIN (CLINDAMYCIN HCL) 06/16/2005PENICILLINS 06/16/2005 2 - RashDate Reviewed: 09/22/2016Reviewed by: Ann Marie ([facility]) Luci - Fully AssessedReason for Visit: No Show [1558]Primary Visit Diagnosis:NO SHOWPrescriptions as of 11/11/2016 Sig: OXYCODONE ER 15 MG TABLET,CRU* Take 15 mg by mouth four time* TRIAMTERENE 37.5 MG-HYDROCHLO* Take 1 tablet by mouth once d* DULOXETINE 20 MG CAPSULE,JULIA* Take 30 mg by mouth once mel* * PREGABALIN 100 MG CAPSULE Take 150 mg by mouth three ti* * LEVOTHYROXINE 175 MCG TABLET Take one(1) tablet daily.Problem List As Of Date 11/11/2016 Noted Resolved Hypothyroidism [E03.9] INVALID FOR* Chest pain [R07.9] INVALID FOR* Obesity [E66.9] INVALID FOR* Glucose intolerance (impaired glucose tolerance*INVALID FOR* Hematuria [R31.9] INVALID FOR* Antinuclear factor positive [R76.8] INVALID FOR* Fibromyalgia [M79.7] INVALID FOR* HTN (hypertension) [I10] INVALID FOR* LBP (low back pain) [M54.5] INVALID FOR* Graves disease [E05.00] More...Level of Service: OFFICE VISIT NO CHARGE WITH PROCEDURE [[id number]] Status:Closed by VANIA BURRIS MA on 11/12/16 [facility] HOSPon 11-04-2016 HOSP Patient:Timi Self LMRN: Height:5' 4(1.626 m)Weight:315 lb (142.883 kg)Outpatient Medications as of 02/04/17:DULOXETINE HCL (CYMBALTA ORAL)topiramate (TOPAMAX) 100 mg tabletLevothyroxine 150 mcg capoxyCODONE-acetaminophen (PERCOCET 10) 10-325 mg tabletVALSARTAN ORALhydroxychloroquine (PLAQUENIL) 200 mg tabletLACTOBACILLUS RHAMNOSUS GG (CULTURELLE ORAL)DULoxetine (CYMBALTA) 20 mg capsuletiZANidine HCl 4 mg capsuleAdmission/Clinic Administered Medications as of 02/04/17:remifentanil 1,000 mcg in NaCl 0.9% 40 mLProblem List:Hypothyroidism [E03.9]Chest pain [R07.9]Obesity [E66.9]Glucose intolerance (impaired glucose tolerance) [R73.02]Hematuria [R31.9]Antinuclear factor positive [R76.8]Fibromyalgia [M79.7]HTN (hypertension) [I10]LBP (low back pain) [M54.5]Graves disease [E05.00]Allergies:Adhesive Tape-SiliconesChloroxylenol Cleocin [Clindamycin Hcl]PenicillinsDate Verified: 02/04/17Lab ValuesLab Value Units Date High LowPOTA* 4.3 mEq/L 01/21/2017 5.1 3.5HEMA* 41.2 % 01/21/2017 44.9 34.1No progress notes entered within the past 30 days [facility] CNOVon 09-22-2016 CNOV Office Visit (AGGENS5) --------TARYN SELF ([id number]) 1960 FDate Time Provider Department09/22/16 1:45 PM ANN MARIE DELANEY ([facility]) AGGENS5 During your visit today, we recorded the following information about you: Pulse Blood pressure Weight Height 72/minute 147/93 141.6 kg 1.6 [place], REJI 09/24/2016 11:32 AM SignedK[facility]on [facility] - Bariatric DepartmentNew Patient Nutritional AssessmentDebra Aramis (Petty)Anthropometrics:56 year old female BP 147/93 Pulse 72 Ht 160 cm (5' 3ANDquot;) Wt (!) 141.6kg (312 lb 3.2 oz) BMI 55.3 kg/x1Gapjyod Body Fat: 47%Weight History:Previous weight loss attempts: food restriction by smaller portion sizes,history of skipping mealsLife events that have contributed to weight gain: nonePersonal weight loss goals: 150#Medical History:PAST MEDICAL HISTORYDiagnosis Date- Abdominal pain, other specified site- Fibromyalgia- HTN (hypertension)- Hypothyroid- LBP (low back pain)- Obesities, morbid (HCC)- Other malaise and fatigue- Other postablative hypothyroidism- PMH - PAST MEDICAL HISTORY OF graves diseaseDietary Intake:24 hour recall provided Breakfast- 3 slices hong konger toast Lunch- nothing Dinner- 2 cups chicken broccoli cheese casserole Snacks- cake/poptartLimitations of keeping a food record: noneFood Allergies: noneFrequency of fried foods: 1-2 times per weekFrequency of high sugar foods: 1-2 times per weekFrequency of snack-type foods: 1-2 times per monthFrequency of caffeine/carbonated beverages: 1-2 times per monthFrequency of dining out meals: 1-2 times per weekPhysical Activity:Physical conditions limiting activity: lower back painCurrent activity: nonePre-op goal weight: 297#Written information provided and reviewed:Healthy plate/menusBehavior ChecklistJournalChair exercisesPt's mom, Janeth, present during today's appointment.Usually skips lunch, discussed opting for a protein source and rationaleprovided for goal of 3 meals/day.Currently drinking 2%, counseled on switching to 1% or skim.Back pain poses large barrier with exercise, emphasized chair exercises only astolerated (no PT at this time).Will accompany during his work hours, sometimes not getting home [id number]- discussed opting for 3 meals as it fits within that day's schedule.Plan to initiate MVI at subsequent encounter.Goals: Goals - formal exercise as tolerated (chair exercises) - Have 3 meals a day - eat lunch, include a protein source (chicken, eggs, peanut butter) - journal daily and bring to all appointmentsChristie Hall RD, MILA Centeno 09/24/2016 11:32 AM SignedBARIATRIC SURGERY NEW PATIENT CONSULTATION HISTORY AND PHYSICALDate: September 22, 2016 Time: 2:49 PMName: Taryn Self COMPLAINT:This is a 56 year old female with morbid obesity (Body mass index is 55.3kg/(m2).) who presents to clinic for consideration of bariatric surgery.HISTORY OF PRESENTING ILLNESS:Taryn Self began considering bariatric surgery recently after therecommendation of a neurosurgeon after being commended for chronic low backpain. He did advise that at her current weight surgery would not berecommended due to likely being an obesity associated condition, with weightloss being the first stage. She is somewhat unsure if pursuing a surgicalweight loss due to risk of surgical complications. However she is interestedin achieving weight loss as weight to improve her overall health and quality oflife. On interview, she recalls being of a healthy weight up until highschool. She also identifies a back injury as an event that led to furtherweight gain as she was unable to continue working. She has multiple attemptsat diet and exercise, and has lost 50 pounds on her own, however was unable tomaintain this weight loss.Completely, she does have significant and chronic low back pain with sciatica.She is established with pain management. She does not routinely take NSAIDsdaily for treatment however she has required steroids previously.Additionally, she is recently diagnosed with chronic kidney disease she isunsure of which stage. She has been referred to a game programer.PAST MEDICAL HISTORYDiagnosis Date- Fibromyalgia- Graves disease graves disease- HTN (hypertension)- Hypothyroid- LBP (low back pain)- Obesities, morbid (HCC)- Other malaise and fatigue- RLS (restless legs syndrome)PAST SURGICAL HISTORYNo date: DELIVERY ONLY Comment: , low cervical x2No date: LIGATE FALLOPIAN TUBE Comment: Tubal ligationNo date: PAST SURGICAL HISTORY OF Comment: thymus- enlargedNo date: PAST SURGICAL HISTORY OF Comment: eye, leftFAMILY HISTORY Diabetes Paternal GrandfatherSOCIAL HISTORY:Social HistorySubstance Use Topics- Smoking status: Former Smoker Quit date: 09/22/2009- Smokeless tobacco: Former User Quit date: 04/10/1999- Alcohol use NoMEDICATIONS:Prior to Admission Medications:oxyCODONE ER (OXYCONTIN) 15 mg 12 hr tablet Take 15 mg by mouth four timesdaily.triamterene-hydr ochlorothiazide 37.5-25 mg per tablet Take 1 tablet by mouthonce daily. Take one half tablet dailyDULoxetine (CYMBALTA) 20 mg capsule Take 30 mg by mouth once daily.pregabalin (LYRICA) 100 mg capsule Take 150 mg by mouth three times daily.levothyroxine 175 mcg ORAL tablet Take one(1) tablet daily.ALLERGIESAllergen Reactions- Adhesive Tape-Silic* Rash- Chloroxylenol- Cleocin [Clindamyci*- Penicillins RashREVIEW OF SYSTEMS:GENERAL: No weight loss, malaise or feversHEENT: Negative for frequent or significant headaches, Mouth ANDamp; ThroatPositive for snoringNECK: Negative for lumps, goiter, pain and significant neck swellingRESPIRATORY: Negative for cough, hemoptysis, wheezing, COPD, dyspnea orshortness of breathCARDIOVASCULAR: Negative for chest pain, leg swelling, hypertension, CHF orpalpitationsGI: Negative for abdominal discomfort, blood in stools or black stools, changein bowel habit, heart burn, nausea, vomiting and Positive for No recentcolonoscopy as an adult.: No history of dysuria, frequency or incontinence, No difficulty urinating,nocturia ANDgt; 1 time per night or hematuriaMUSCULOSKELETAL: See HPISKIN: Negative for lesions, rash, and itchingPSYCH: Negative for sleep disturbance and recent psychosocial stressors,Positive for depression: She is established with mental health providers. Carmenhas not had a recent and remote attempt at self-harm. She has not had anysignificant medication changes nor has she been diagnosed and eating disorder.HEMATOLOGY/LYMPHOL OGY: Negative for prolonged bleeding, bruising easily orswollen nodesENDOCRINE: Negative for cold or heat intolerance, polyuria, polydipsia andgoiterPHYSICAL EXAM:BP 147/93 Pulse 72 Ht 160 cm (5' 3ANDquot;) Wt (!) 141.6 kg (312 lb 3.2 oz) BMI 55.3 kg/b1WECGJRV APPEARANCE: Pleasant, interacts appropriately and in no apparentdistress. Appropriately groomedENT: Oral mucosa pink without lesions/ulcerations, dentition intact.NECK: Supple without lymphadenopathy or thyromegalyABDOMEN: Obese, soft, non-tender, no masses, no palpable hernia.MUSCULOSKELETAL: Significant joint immobility.SKIN: Skin of normal texture, temperature without rashes/lesions/ulcerations. PSYCH: Oriented to person, place, time; appropriate insight and judgement.Appropriate affect.IMPRESSION AND PLAN:Taryn Self is a 56 year old female with the following diagnosis andco-morbidities:Body mass index is 55.3 kg/(m2).This patient does meet the criteria for a surgical weight loss procedureaccording to NIH guidelines. Time was spent discussing both surgical optionsas well as she was provided with estimations in terms percent excess weightloss. Our conversation was also guided by the use of visual aids. Afterdiscussion she was unsure of which procedure she is interested in. However els required steroids for treatment of her joint pain previously and this willneed to be considered.I have asked our office to verify the required months of supervised weight lossas well as consecutive versus not consecutive. However she will be seenregardless on a monthly basis to assess her motivation, insight into behaviorsthat promote weight loss. Therefore she received 10-15 minutes of dietarycounseling in office today, scheduled for our shared education class, as wellas complete a psychology evaluation. She is asking if the psychologist whocompleted a previous psychology evaluation, [id number] can completeher bariatric dilation. I will collaborate with our psychologist to determineappropriate plan.1. Obesity, morbid, BMI 50 or higher (HCC) - ICD9: 278.01, ICD10: E66.01(primary diagnosis)- POLYSOMNOGRAM (PSG)/HOME SLEEP TEST (HST)- CONSULT TO PSYCHOLOGY2. Snoring - ICD9: 786.09, ICD10: R06.83- POLYSOMNOGRAM (PSG)/HOME SLEEP TEST (HST)3. Malaise and fatigue - ICD9: 780.79, ICD10: R53.81, R53.83- POLYSOMNOGRAM (PSG)/HOME SLEEP TEST (HST)4. Depression, unspecified depression type - ICD9: 311, ICD10: F32.9- POLYSOMNOGRAM (PSG)/HOME SLEEP TEST (HST)Additionally, she is unsure of the name of her referring provider, I have askedher to determine the name of her referral so that we can continue communicating.In terms of follow-up, follow-up with Dr. Shell in 4-6 weeks as well as on amonthly basis for the above plan.Ann Marie Delaney NP-COf the 60 minutes spent with the patient, ANDgt;50% counseling and orcoordinating care.This note was generated using voice recognition technology and may containgrammatical errors.Allergies As of Date: 09/22/2016 Noted Allergy ReactionADHESIVE TAPE-SILICONES 11/12/2011 2 - RashCHLOROXYLENOL 06/16/2005CLEOCIN (CLINDAMYCIN HCL) 06/16/2005PENICILLINS 06/16/2005 2 - RashDate Reviewed: 09/22/2016Reviewed by: Ann Marie Delaney - Fully AssessedReason for Visit: Consult [173]Primary Visit Diagnosis:Obesity, morbid, BMI 50 or higher ([facility]) [E66.01] Other Visit Diagnoses:Snoring [R06.83] Malaise and fatigue [R53.81, R53.83] Depression, unspecified depression type [F32.9]Order(s):POLYSOMNOGR AM (PSG)/HOME SLEEP TEST (HST) [4269326] Order #: [id number] FUTURE CONSULT TO PSYCHOLOGY [9036] Order #: [id number]: 1Prescriptions as of 09/22/2016 Sig: OXYCODONE ER 15 MG TABLET,CRU* Take 15 mg by mouth four time* TRIAMTERENE 37.5 MG-HYDROCHLO* Take 1 tablet by mouth once d* DULOXETINE 20 MG CAPSULE,JULIA* Take 30 mg by mouth once mel* * PREGABALIN 100 MG CAPSULE Take 150 mg by mouth three ti* * LEVOTHYROXINE 175 MCG TABLET Take one(1) tablet daily.Problem List As Of Date 09/22/2016 Noted Resolved Hypothyroidism [E03.9] INVALID FOR* Chest pain [R07.9] INVALID FOR* Obesity [E66.9] INVALID FOR* Glucose intolerance (impaired glucose tolerance*INVALID FOR* Hematuria [R31.9] INVALID FOR* Antinuclear factor positive [R76.8] INVALID FOR* Fibromyalgia [M79.7] INVALID FOR* HTN (hypertension) [I10] INVALID FOR* LBP (low back pain) [M54.5] INVALID FOR* Graves disease [E05.00] More...Level of Service: NEW PATIENT VISIT LEVEL 5 [82070]Disposition: Return in about 1 month (around 10/23/2016) for with Dr. Shell, with Dietitian.Follow-up and Disposition History Recorded -------Questionnaire: AG GEN SURG BARIATRIC PRE-OP VISITSWEIGHT (pounds) (PRE OP) -> 312.2HEIGHT (inches) -> 63PREOP BMI -> 55PREOP IDEAL BODY WEIGHT -> 60GOAL WEIGHT -> 297PREOP % BODY FAT -> 47Letter TextEncounter Number: [id number] Status:Closed by ANN MARIE ZAMORA on 09/24/16 [facility] PROGRESSon 09-22-2016 PROGRESS HNO ID: [id number] thor: Ann Marie ([facility]) Siobhan: (none)Author Type: Nurse PractitionerType: Progress NotesFiled: 09/24/2016 11:32 AMNote Text:BARIATRIC SURGERY NEW PATIENT CONSULTATION HISTORY AND PHYSICALDate: September 22, 2016 Time: 2:49 PMName: Taryn Navarro COMPLAINT:This is a 56 year old female with morbid obesity (Body mass index is 55.3kg/(m2).) who presents to clinic for consideration of bariatric surgery.HISTORY OF PRESENTING ILLNESS:Taryn Self began considering bariatric surgery recently after therecommendation of a neurosurgeon after being commended for chronic lowback pain. He did advise that at her current weight surgery would not berecommended due to likely being an obesity associated condition, withweight loss being the first stage. She is somewhat unsure if pursuing asurgical weight loss due to risk of surgical complications. However sheis interested in achieving weight loss as weight to improve her overallhealth and quality of life. On interview, she recalls being of a healthyweight up until high school. She also identifies a back injury as anevent that led to further weight gain as she was unable to continueworking. She has multiple attempts at diet and exercise, and has lost 50pounds on her own, however was unable to maintain this weight loss.Completely, she does have significant and chronic low back pain withsciatica. She is established with pain management. She does notroutinely take NSAIDs daily for treatment however she has requiredsteroids previously. Additionally, she is recently diagnosed with chronickidney disease she is unsure of which stage. She has been referred to anephrologist.PAST MEDICAL HISTORYDiagnosis Date- Fibromyalgia- Graves disease graves disease- HTN (hypertension)- Hypothyroid- LBP (low back pain)- Obesities, morbid (HCC)- Other malaise and fatigue- RLS (restless legs syndrome)PAST SURGICAL HISTORYNo date: DELIVERY ONLY Comment: , low cervical x2No date: LIGATE FALLOPIAN TUBE Comment: Tubal ligationNo date: PAST SURGICAL HISTORY OF Comment: thymus- enlargedNo date: PAST SURGICAL HISTORY OF Comment: eye, leftFAMILY HISTORY Diabetes Paternal GrandfatherSOCIAL HISTORY:Social HistorySubstance Use Topics- Smoking status: Former Smoker Quit date: 09/22/2009- Smokeless tobacco: Former User Quit date: 04/10/1999- Alcohol use NoMEDICATIONS:Prior to Admission Medications:oxyCODONE ER (OXYCONTIN) 15 mg 12 hr tablet Take 15 mg by mouth four timesdaily.triamterene-hydr ochlorothiazide 37.5-25 mg per tablet Take 1 tablet bymouth once daily. Take one half tablet dailyDULoxetine (CYMBALTA) 20 mg capsule Take 30 mg by mouth once daily.pregabalin (LYRICA) 100 mg capsule Take 150 mg by mouth three times daily.levothyroxine 175 mcg ORAL tablet Take one(1) tablet daily.ALLERGIESAllergen Reactions- Adhesive Tape-Silic* Rash- Chloroxylenol- Cleocin [Clindamyci*- Penicillins RashREVIEW OF SYSTEMS:GENERAL: No weight loss, malaise or feversHEENT: Negative for frequent or significant headaches, Mouth AND ThroatPositive for snoringNECK: Negative for lumps, goiter, pain and significant neck swellingRESPIRATORY: Negative for cough, hemoptysis, wheezing, COPD, dyspnea orshortness of breathCARDIOVASCULAR: Negative for chest pain, leg swelling, hypertension, CHFor palpitationsGI: Negative for abdominal discomfort, blood in stools or black stools,change in bowel habit, heart burn, nausea, vomiting and Positive for Norecent colonoscopy as an adult.: No history of dysuria, frequency or incontinence, No difficultyurinating, nocturia > 1 time per night or hematuriaMUSCULOSKELETAL: See HPISKIN: Negative for lesions, rash, and itchingPSYCH: Negative for sleep disturbance and recent psychosocial stressors,Positive for depression: She is established with mental health providers.She has not had a recent and remote attempt at self-harm. She has not hadany significant medication changes nor has she been diagnosed and eatingdisorder.HEMATOLOGY/L YMPHOLOGY: Negative for prolonged bleeding, bruising easily orswollen nodesENDOCRINE: Negative for cold or heat intolerance, polyuria, polydipsia andgoiterPHYSICAL EXAM:BP 147/93 Pulse 72 Ht 160 cm (5' 3) Wt (!) 141.6 kg (312 lb 3.2 oz) BMI 55.3 kg/u3GJWTEZP APPEARANCE: Pleasant, interacts appropriately and in no apparentdistress. Appropriately groomedENT: Oral mucosa pink without lesions/ulcerations, dentition intact.NECK: Supple without lymphadenopathy or thyromegalyABDOMEN: Obese, soft, non-tender, no masses, no palpable hernia.MUSCULOSKELETAL: Significant joint immobility.SKIN: Skin of normal texture, temperature withoutrashes/lesions/ulcer ations.PSYCH: Oriented to person, place, time; appropriate insight and judgement.Appropriate affect.IMPRESSION AND PLAN:Taryn Self is a 56 year old female with the following diagnosis andco-morbidities:Body mass index is 55.3 kg/(m2).This patient does meet the criteria for a surgical weight loss procedureaccording to NIH guidelines. Time was spent discussing both surgicaloptions as well as she was provided with estimations in terms percentexcess weight loss. Our conversation was also guided by the use of visualaids. After discussion she was unsure of which procedure she isinterested in. However she has required steroids for treatment of herjoint pain previously and this will need to be considered.I have asked our office to verify the required months of supervised weightloss as well as consecutive versus not consecutive. However she will beseen regardless on a monthly basis to assess her motivation, insight intobehaviors that promote weight loss. Therefore she received 10-15 minutesof dietary counseling in office today, scheduled for our shared educationclass, as well as complete a psychology evaluation. She is asking if thepsychologist who completed a previous psychology evaluation,jgp-[id number]-ci conchita can complete her bariatric dilation. I willcollaborate with our psychologist to determine appropriate plan.1. Obesity, morbid, BMI 50 or higher (HCC) - ICD9: 278.01, ICD10: E66.01(primary diagnosis)- POLYSOMNOGRAM (PSG)/HOME SLEEP TEST (HST)- CONSULT TO PSYCHOLOGY2. Snoring - ICD9: 786.09, ICD10: R06.83- POLYSOMNOGRAM (PSG)/HOME SLEEP TEST (HST)3. Malaise and fatigue - ICD9: 780.79, ICD10: R53.81, R53.83- POLYSOMNOGRAM (PSG)/HOME SLEEP TEST (HST)4. Depression, unspecified depression type - ICD9: 311, ICD10: F32.9- POLYSOMNOGRAM (PSG)/HOME SLEEP TEST (HST)Additionally, she is unsure of the name of her referring provider, I haveasked her to determine the name of her referral so that we can continuecommunicating.In terms of follow-up, follow-up with Dr. Shell in 4-6 weeks as well ason a monthly basis for the above plan.Ann Marie Delaney NP-COf the 60 minutes spent with the patient, >50% counseling and orcoordinating care.This note was generated using voice recognition technology and may containgrammatical errors. Normal [facility] PROGRESS HNO ID: [id number] thor: Christie Fields) Randy: (none)Author Type: Registered DietitianType: Progress NotesFiled: 09/24/2016 11:32 AMNote Text:[facility] - Bariatric DepartmentNew Patient Nutritional AssessmentTaryn Self (Petty)Anthropometrics:56 year old female BP 147/93 Pulse 72 Ht 160 cm (5' 3) Wt (!) 141.6kg (312 lb 3.2 oz) BMI 55.3 kg/q9Qdfyjpt Body Fat: 47%Weight History:Previous weight loss attempts: food restriction by smaller portion sizes,history of skipping mealsLife events that have contributed to weight gain: nonePersonal weight loss goals: 150#Medical History:PAST MEDICAL HISTORYDiagnosis Date- Abdominal pain, other specified site- Fibromyalgia- HTN (hypertension)- Hypothyroid- LBP (low back pain)- Obesities, morbid (HCC)- Other malaise and fatigue- Other postablative hypothyroidism- PMH - PAST MEDICAL HISTORY OF graves diseaseDietary Intake:24 hour recall provided Breakfast- 3 slices hong konger toast Lunch- nothing Dinner- 2 cups chicken broccoli cheese casserole Snacks- cake/poptartLimitations of keeping a food record: noneFood Allergies: noneFrequency of fried foods: 1-2 times per weekFrequency of high sugar foods: 1-2 times per weekFrequency of snack-type foods: 1-2 times per monthFrequency of caffeine/carbonated beverages: 1-2 times per monthFrequency of dining out meals: 1-2 times per weekPhysical Activity:Physical conditions limiting activity: lower back painCurrent activity: nonePre-op goal weight: 297#Written information provided and reviewed:Healthy plate/menusBehavior ChecklistJournalChair exercisesPt's mom, Janeth, present during today's appointment.Usually skips lunch, discussed opting for a protein source and rationaleprovided for goal of 3 meals/day.Currently drinking 2%, counseled on switching to 1% or skim.Back pain poses large barrier with exercise, emphasized chair exercisesonly as tolerated (no PT at this time).Will accompany during his work hours, sometimes not getting homeuntil 3am- discussed opting for 3 meals as it fits within that day'sschedule.Plan to initiate MVI at subsequent encounter.Goals: Goals - formal exercise as tolerated (chair exercises) - Have 3 meals a day - eat lunch, include a protein source (chicken, eggs, peanut butter) - journal daily and bring to all appointmentsChristie Hall RD, LD Normal [facility] Vital Signs Date Time Vital Sign Value Performing Clinician Facility 09-04-2024 09:11-0400 Body height 162.6 cm Tristian Martin PA-C Work Phone: [facility] 09-04-2024 09:11-0400 Body mass index (BMI) [Ratio] 54.34 kg/m2 Tristian Martin PA-C Work Phone: [facility] 09-04-2024 09:11-0400 Body weight 143.6 kg Tristian Martin PA-C Work Phone: [facility] 09-04-2024 09:11-0400 Diastolic blood pressure 73 mm[Hg] Tristiannaya Montoyaos PA-C Work Phone: [facility] 09-04-2024 09:11-0400 Heart rate 65 /min Tristiannaya Martin PA-C Work Phone: [facility] 09-04-2024 09:11-0400 Respiratory rate 16 /min Tristian Veronica PA-C Work Phone: [facility] 09-04-2024 09:11-0400 SaO2% (BldA) [Mass fraction] 98 % Tristiannaya Martin PA-C Work Phone: [facility] 09-04-2024 09:11-0400 Systolic blood pressure 131 mm[Hg] Tristiannaya Montoyaos PA-C Work Phone: [facility] 06-05-2024 08:18-0400 Body height 162.6 cm Tristian Veronica PA-C Work Phone: [facility] 06-05-2024 08:18-0400 Body mass index (BMI) [Ratio] 52.64 kg/m2 Tristian Veronica PA-C Work Phone: [facility] 06-05-2024 08:18-0400 Body weight 139.1 kg Tristian Veronica PA-C Work Phone: [facility] 06-05-2024 08:18-0400 Diastolic blood pressure 73 mm[Hg] Tristian Veronica PA-C Work Phone: [facility] 06-05-2024 08:18-0400 Heart rate 59 /min Tristian Veronica PA-C Work Phone: [facility] 06-05-2024 08:18-0400 Respiratory rate 20 /min Tristian Veronica PA-C Work Phone: [facility] 06-05-2024 08:18-0400 SaO2% (BldA) [Mass fraction] 100 % Tristian Veronica PA-C Work Phone: [facility] 06-05-2024 08:18-0400 Systolic blood pressure 134 mm[Hg] Tristian Veronica PA-C Work Phone: [facility] 04-02-2024 09:30-0500 Body height 162.56 cm Ashley Montiel PRODUCT SAFETY CONSULTANT-C Work Phone: [facility] 04-02-2024 09:22-0500 Body mass index (BMI) [Ratio] 53.4 kg/m2 Ashley Montiel PRODUCT SAFETY CONSULTANT-C Work Phone: [facility] 04-02-2024 09:22-0500 Body weight 141.29 kg Ashley Montiel PRODUCT SAFETY CONSULTANT-C Work Phone: [facility] 04-02-2024 09:22-0500 Diastolic blood pressure 74 mm[Hg] Ashley Montiel PRODUCT SAFETY CONSULTANT-C Work Phone: [facility] 04-02-2024 09:22-0500 Systolic blood pressure 120 mm[Hg] Ashley Montiel PRODUCT SAFETY CONSULTANT-C Work Phone: [facility] 03-08-2024 10:32-0500 Body height 162.6 cm Tristian Veronica PA-C Work Phone: [facility] 03-08-2024 10:32-0500 Body mass index (BMI) [Ratio] 54.27 kg/m2 Tristian Veronica PA-C Work Phone: [facility] 03-08-2024 10:32-0500 Body weight 143.4 kg Tristian Veronica PA-C Work Phone: [facility] 03-08-2024 10:32-0500 Diastolic blood pressure 83 mm[Hg] Tristian Veronica PA-C Work Phone: [facility] 03-08-2024 10:32-0500 Heart rate 65 /min Tristian Veronica PA-C Work Phone: [facility] 03-08-2024 10:32-0500 Respiratory rate 16 /min Tristian Veronica PA-C Work Phone: [facility] 03-08-2024 10:32-0500 SaO2% (BldA) [Mass fraction] 97 % Tristian Veronica PA-C Work Phone: [facility] 03-08-2024 10:32-0500 Systolic blood pressure 132 mm[Hg] Tristian Veronica PA-C Work Phone: [facility] 12-07-2023 10:12-0400 Body height 162.6 cm Jay Esparza MD Work Phone: [facility] 12-07-2023 10:12-0400 Body mass index (BMI) [Ratio] 54.68 kg/m2 Jay Esparza MD Work Phone: [facility] 12-07-2023 10:12-0400 Body weight 144.5 kg Jay Esparza MD Work Phone: [facility] 12-07-2023 10:12-0400 Diastolic blood pressure 66 mm[Hg] Jay Esparza MD Work Phone: [facility] 12-07-2023 10:12-0400 Heart rate 70 /min Jay Esparza MD Work Phone: [facility] 12-07-2023 10:12-0400 Respiratory rate 16 /min Jay Esparza MD Work Phone: [facility] 12-07-2023 10:12-0400 SaO2% (BldA) [Mass fraction] 97 % Jay Esparza MD Work Phone: [facility] 12-07-2023 10:12-0400 Systolic blood pressure 144 mm[Hg] Jay Esparza MD Work Phone: [facility] 09-11-2023 15:00-0400 Diastolic blood pressure 74 mm[Hg] No Generic Provider [facility] 09-11-2023 15:00-0400 Heart rate 64 /min No Generic Provider [facility] 09-11-2023 15:00-0400 Respiratory rate 17 /min No Generic Provider [facility] 09-11-2023 15:00-0400 SaO2% (BldA) [Mass fraction] 96 % No Generic Provider [facility] 09-11-2023 15:00-0400 Systolic blood pressure 143 mm[Hg] No Generic Provider [facility] 09-11-2023 13:53-0400 Body temperature 98.1 [degF] No Generic Provider [facility] 09-11-2023 13:51-0400 Body height 162.6 cm No Generic Provider [facility] 09-11-2023 13:51-0400 Body mass index (BMI) [Ratio] 56.64 kg/m2 No Generic Provider [facility] 09-11-2023 13:51-0400 Body weight 149.69 kg No Generic Provider [facility] 09-07-2023 09:11-0400 Body mass index (BMI) [Ratio] 57.43 kg/m2 Jay Esparza MD Work Phone: [facility] 09-07-2023 09:11-0400 Body weight 155.58 kg Jay Esparza MD Work Phone: [facility] 09-07-2023 09:11-0400 Diastolic blood pressure 90 mm[Hg] Jay Esparza MD Work Phone: [facility] 09-07-2023 09:11-0400 Heart rate 71 /min Jay Esparza MD Work Phone: [facility] 09-07-2023 09:11-0400 SaO2% (BldA) [Mass fraction] 97 % Jay Esparza MD Work Phone: [facility] 09-07-2023 09:11-0400 Systolic blood pressure 149 mm[Hg] Jay Esparza MD Work Phone: [facility] 06-09-2023 09:29-0400 Body weight 161.48 kg Jay Esparza MD Work Phone: [facility] 06-09-2023 09:29-0400 Diastolic blood pressure 80 mm[Hg] Jay Esparza MD Work Phone: [facility] 06-09-2023 09:29-0400 Heart rate 88 /min Jay Esparza MD Work Phone: [facility] 06-09-2023 09:29-0400 SaO2% (BldA) [Mass fraction] 94 % Jay Esparza MD Work Phone: [facility] 06-09-2023 09:29-0400 Systolic blood pressure 160 mm[Hg] Jay Esparza MD Work Phone: [facility] 03-28-2023 08:47-0500 Body height 162.[address] Danisha Briggs Work Phone: [facility] 03-28-2023 08:43-0500 Body mass index (BMI) [Ratio] 57.6 kg/m2 Dr. Danisha Briggs Work Phone: [facility] 03-28-2023 08:43-0500 Body weight 152.[address] Danisha Briggs Work Phone: [facility] 03-28-2023 08:43-0500 Diastolic blood pressure 84 mm[Hg] Dr. Danisha Briggs Work Phone: [facility] 03-28-2023 08:43-0500 Systolic blood pressure 136 mm[Hg] Dr. Danisha Briggs Work Phone: [facility] 12-06-2022 10:29-0400 Body height 162.6 cm Génesis Osorio DO Work Phone: [facility] 12-06-2022 10:29-0400 Body weight 158.85 kg Génesis Osorio DO Work Phone: [facility] 12-06-2022 10:29-0400 Diastolic blood pressure 92 mm[Hg] Génesis Osorio DO Work Phone: [facility] 12-06-2022 10:29-0400 Heart rate 64 /min Génesis Osorio DO Work Phone: [facility] 12-06-2022 10:29-0400 Respiratory rate 18 /min Génesis Osorio DO Work Phone: [facility] 12-06-2022 10:29-0400 SaO2% (BldA) [Mass fraction] 96 % Génesis Osorio DO Work Phone: [facility] 12-06-2022 10:29-0400 Systolic blood pressure 158 mm[Hg] Génesis Osorio DO Work Phone: [facility] 09-20-2022 10:56-0400 Body height 161.5 cm Génesis Osorio DO Work Phone: [facility] 09-20-2022 10:56-0400 Body weight 161.03 kg Génesis Osorio DO Work Phone: [facility] 09-20-2022 10:56-0400 Diastolic blood pressure 96 mm[Hg] Génesis Osorio DO Work Phone: [facility] 09-20-2022 10:56-0400 Heart rate 74 /min Génesis Osorio DO Work Phone: [facility] 09-20-2022 10:56-0400 Respiratory rate 19 /min Génesis Osorio DO Work Phone: [facility] 09-20-2022 10:56-0400 SaO2% (BldA) [Mass fraction] 98 % Génesis Osorio DO Work Phone: [facility] 09-20-2022 10:56-0400 Systolic blood pressure 157 mm[Hg] Génesis Osorio DO Work Phone: [facility] 05-24-2022 14:58-0400 Diastolic blood pressure 79 mm[Hg] Génesis Osorio DO Work Phone: [facility] 05-24-2022 14:58-0400 Heart rate 69 /min Génesis Osorio DO Work Phone: [facility] 05-24-2022 14:58-0400 SaO2% (BldA) [Mass fraction] 96 % Génesis Osorio DO Work Phone: [facility] 05-24-2022 14:58-0400 Systolic blood pressure 145 mm[Hg] Génesis Osorio DO Work Phone: [facility] 05-20-2022 10:08-0400 Body height 162.[address] Danisha Briggs Work Phone: [facility] 05-20-2022 10:08-0400 Body mass index (BMI) [Ratio] 60.7 kg/m2 Dr. Danisha Briggs Work Phone: [facility] 05-20-2022 10:08-0400 Body temperature 97.6 [degF] Dr. Danisha Briggs Work Phone: [facility] 05-20-2022 10:08-0400 Body weight 160.[address] Danisha Briggs Work Phone: [facility] 05-20-2022 10:08-0400 Diastolic blood pressure 100 mm[Hg] Dr. Danisha Briggs Work Phone: [facility] 05-20-2022 10:08-0400 Heart rate 73 /min Dr. Danisha Briggs Work Phone: [facility] 05-20-2022 10:08-0400 Respiratory rate 16 /min Dr. Danisha Briggs Work Phone: [facility] 05-20-2022 10:08-0400 SaO2% (BldA) [Mass fraction] 97 % Dr. Danisha Briggs Work Phone: [facility] 05-20-2022 10:08-0400 Systolic blood pressure 148 mm[Hg] Dr. Danisha Briggs Work Phone: [facility] 04-19-2022 15:53-0500 Body height 164.6 cm Génesis Osorio DO Work Phone: [facility] 04-19-2022 15:53-0500 Body weight 158.76 kg Génesis Osorio DO Work Phone: [facility] 04-19-2022 15:53-0500 Diastolic blood pressure 75 mm[Hg] Génesis Osorio DO Work Phone: [facility] 04-19-2022 15:53-0500 Heart rate 68 /min Génesis Osorio DO Work Phone: [facility] 04-19-2022 15:53-0500 Respiratory rate 19 /min Génesis Osorio DO Work Phone: [facility] 04-19-2022 15:53-0500 SaO2% (BldA) [Mass fraction] 97 % Génesis Osorio DO Work Phone: [facility] 04-19-2022 15:53-0500 Systolic blood pressure 152 mm[Hg] Génesis Osorio DO Work Phone: [facility] 02-18-2022 15:13-0500 Diastolic blood pressure 84 mm[Hg] Rosieraheel SarmientoBentley MOTOR VEHICLE PARTS INTERPRETER.RUBBER PROCESS HAND Work Phone: [facility] 02-18-2022 15:13-0500 Heart rate 78 /min Rosieraheel SarmientoBentley MOTOR VEHICLE PARTS INTERPRETER.RUBBER PROCESS HAND Work Phone: [facility] 02-18-2022 15:13-0500 SaO2% (BldA) [Mass fraction] 97 % Rosieraheel SarmientoElisha MOTOR VEHICLE PARTS INTERPRETER.RUBBER PROCESS HAND Work Phone: [facility] 02-18-2022 15:13-0500 Systolic blood pressure 157 mm[Hg] Rosieraheel SarmientoBentley MOTOR VEHICLE PARTS INTERPRETER.RUBBER PROCESS HAND Work Phone: [facility] 02-18-2022 10:28-0500 Body height 162.[address] Danisha Briggs Work Phone: [facility] 02-18-2022 10:28-0500 Body mass index (BMI) [Ratio] 61.2 kg/m2 Dr. Danisha Briggs Work Phone: [facility] 02-18-2022 10:28-0500 Body temperature 96.5 [degF] Dr. Danisha Briggs Work Phone: [facility] 02-18-2022 10:28-0500 Body weight 161.[address] Danisha Briggs Work Phone: [facility] 02-18-2022 10:28-0500 Diastolic blood pressure 78 mm[Hg] Dr. Danisha Briggs Work Phone: [facility] 02-18-2022 10:28-0500 Heart rate 70 /min Dr. Danisha Briggs Work Phone: [facility] 02-18-2022 10:28-0500 Respiratory rate 16 /min Dr. Danisha Briggs Work Phone: [facility] 02-18-2022 10:28-0500 SaO2% (BldA) [Mass fraction] 98 % Dr. Danisha Briggs Work Phone: [facility] 02-18-2022 10:28-0500 Systolic blood pressure 130 mm[Hg] Dr. Danisha Briggs Work Phone: [facility] 12-07-2021 09:34-0400 Body height 162.[address] Danisha Briggs Work Phone: [facility] Work Phone: 12-07-2021 09:34-0400 Body mass index (BMI) [Ratio] 60.9 kg/m2 Dr. Danisha Briggs Work Phone: [facility] Work Phone: 12-07-2021 09:34-0400 Body weight 161.[address] Danisha Briggs Work Phone: [facility] Work Phone: 11-24-2021 11:25-0400 Body height 161.5 cm Génesis Osorio DO Work Phone: [facility] 11-24-2021 11:25-0400 Body weight 161.48 kg Génesis Osorio DO Work Phone: [facility] 11-24-2021 11:25-0400 Diastolic blood pressure 75 mm[Hg] Génesis Osorio DO Work Phone: [facility] 11-24-2021 11:25-0400 Heart rate 74 /min Génesis Osorio DO Work Phone: [facility] 11-24-2021 11:25-0400 Respiratory rate 19 /min Génesis Osorio DO Work Phone: [facility] 11-24-2021 11:25-0400 SaO2% (BldA) [Mass fraction] 96 % Génesis Osorio DO Work Phone: [facility] 11-24-2021 11:25-0400 Systolic blood pressure 154 mm[Hg] Génesis Osorio DO Work Phone: [facility] 11-20-2021 09:38-0400 Body height 165.[address] Danisha Briggs Work Phone: [facility] Work Phone: 11-20-2021 09:38-0400 Body mass index (BMI) [Ratio] 59.3 kg/m2 Dr. Danisha Briggs Work Phone: [facility] Work Phone: 11-20-2021 09:38-0400 Body temperature 96.6 [degF] Dr. Danisha Briggs Work Phone: [facility] Work Phone: 11-20-2021 09:38-0400 Body weight 161.[address] Danisha Briggs Work Phone: [facility] Work Phone: 11-20-2021 09:38-0400 Diastolic blood pressure 84 mm[Hg] Dr. Danisha Briggs Work Phone: [facility] Work Phone: 11-20-2021 09:38-0400 Heart rate 73 /min Dr. Danisha Briggs Work Phone: [facility] Work Phone: 11-20-2021 09:38-0400 Respiratory rate 16 /min Dr. Danisha Briggs Work Phone: [facility] Work Phone: 11-20-2021 09:38-0400 SaO2% (BldA) [Mass fraction] 97 % Dr. Danisha Briggs Work Phone: [facility] Work Phone: 11-20-2021 09:38-0400 Systolic blood pressure 110 mm[Hg] Dr. Danisha Briggs Work Phone: [facility] Work Phone: 10-02-2021 17:23-0400 Body weight 161.03 kg Janet Zafar CNP Work Phone: [facility] 10-02-2021 17:23-0400 Diastolic blood pressure 65 mm[Hg] Janet Zafar CNP Work Phone: [facility] 10-02-2021 17:23-0400 Heart rate 79 /min Janet Zafar CNP Work Phone: [facility] 10-02-2021 17:23-0400 Respiratory rate 19 /min Janet Zafar CNP Work Phone: [facility] 10-02-2021 17:23-0400 Systolic blood pressure 155 mm[Hg] Janet Zafar CNP Work Phone: [facility] 07-29-2021 16:28-0400 Body height 165.[address] Danisha Briggs Work Phone: [facility] Work Phone: 07-29-2021 16:28-0400 Body mass index (BMI) [Ratio] 60.4 kg/m2 Dr. Danisha Briggs Work Phone: [facility] Work Phone: 07-29-2021 16:28-0400 Body temperature 96.8 [degF] Dr. Danisha Briggs Work Phone: [facility] Work Phone: 07-29-2021 16:28-0400 Body weight 164.[address] Danisha Briggs Work Phone: [facility] Work Phone: 07-29-2021 16:28-0400 Diastolic blood pressure 84 mm[Hg] Dr. Danisha Briggs Work Phone: [facility] Work Phone: 07-29-2021 16:28-0400 Heart rate 82 /min Dr. Danisha Briggs Work Phone: [facility] Work Phone: 07-29-2021 16:28-0400 Respiratory rate 18 /min Dr. Danisha Briggs Work Phone: [facility] Work Phone: 07-29-2021 16:28-0400 SaO2% (BldA) [Mass fraction] 97 % Dr. Danisha Briggs Work Phone: [facility] Work Phone: 07-29-2021 16:28-0400 Systolic blood pressure 124 mm[Hg] Dr. Danisha Briggs Work Phone: [facility] Work Phone: 08-22-2019 08:06-0400 BP Diastolic 85 mm[Hg] [facility] 08-22-2019 08:06-0400 BP Systolic 135 mm[Hg] [facility] 08-22-2019 07:58-0400 BMI (Body Mass Index) 62.31 kg/m2 [facility] 08-22-2019 07:58-0400 Body weight 164.66 kg [facility] 08-22-2019 07:58-0400 Height 162.6 cm [facility] 08-22-2019 07:58-0400 Pulse (Heart Rate) 71 /min [facility] 04-26-2018 15:36-0500 BMI (Body Mass Index) 58.36 kg/m2 [facility] 04-26-2018 15:36-0500 Height 162.6 cm [facility] 04-26-2018 15:36-0500 Weight 154.22 kg [facility] Encounters Encounter Date Encounter Type Care Provider Facility Start: 09-04-2024 End: 09-04-2024 Office outpatient visit 25 minutes Tristian Martin PA-C Work Phone: [facility] Comment on above: Chronic pain syndrom e (Primary Dx); Lumbar spondylosis; Morbid obesity (HCC); Lumbar radiculopathy; Chronic pain of left knee Start: 09-04-2024 End: 09-04-2024 ambulatory TRISTIAN MARTIN Facility:[id number] Start: 08-27-2024 End: 08-27-2024 ambulatory Ashley Montiel PRODUCT SAFETY CONSULTANT-C Work Phone: [facility] Start: 08-27-2024 End: 08-27-[address] Liliana Wyman MD -[facility] Work Phone: Start: 08-27-2024 End: 08-27-[address] [facility] Facility:[facility] Start: 08-23-2024 End: 08-23-2024 Refill Tristian Veronica PA-C Work Phone: [facility] Comment on above: Refill Request Start: 08-15-2024 End: 08-15-2024 Telephone encounter Tristian Veronica PA-C Work Phone: [facility] Comment on above: Refill Request Start: 07-23-2024 End: 07-23-2024 Refill Tristian Veronica PA-C Work Phone: [facility] Comment on above: Refill Request Start: 06-19-2024 End: 06-19-2024 Refill Tristian Veronica PA-C Work Phone: [facility] Comment on above: Refill Request Start: 06-11-2024 End: 08-11-2024 Follow-up encounter Tristian Veronica PA-C Work Phone: [facility] Start: 06-07-2024 End: 06-07-2024 ambulatory Ashley Montiel PRODUCT SAFETY CONSULTANT-C Work Phone: [facility] Work Phone: Start: 06-07-2024 End: 06-07-[address] Liliana Wyman MD -Labor[facility], [facility] Work Phone: Start: 06-07-2024 End: 06-07-[address] [facility] Facility:[facility] Start: 06-05-2024 End: 06-05-2024 Office outpatient visit 25 minutes Tristian Veronica PA-C Work Phone: [facility] Comment on above: Chronic pain syndrom e (Primary Dx); Lumbar spondylosis; High risk medication use; Osteoarthritis of both knees, unspecified osteoarthritis type; Inflammatory polyarthropathy (HCC); Inflammatory spondylopathy of lumbar region Start: 06-05-2024 End: 06-05-2024 ambulatory TRISTIAN MARTIN Facility:[id number] Start: 05-29-2024 End: 05-29-2024 Refill Tristian Veronica PA-C Work Phone: [facility] Comment on above: Refill Request Start: 05-23-2024 End: 05-23-2024 Refill Tristian Veronica PA-C Work Phone: [facility] Comment on above: Refill Request Start: 05-09-2024 End: 05-10-2024 Refill Tristian Veronica PA-C Work Phone: [facility] Comment on above: Refill Request Start: 04-23-2024 End: 04-24-2024 Refill Tristian Veronica PA-C Work Phone: [facility] Comment on above: Refill Request Start: 04-13-2024 ambulatory Elsie flynn:[facility] Start: 04-10-2024 End: 04-10-2024 Refill Tristian Veronica PA-C Work Phone: [facility] Start: 04-04-2024 End: 04-11-2024 Refill Tristian Veronica PA-C Work Phone: [facility] Comment on above: Refill Request Start: 04-02-2024 End: 04-02-2024 Patient encounter procedure Elsie Ferris PRODUCT SAFETY CONSULTANT-C -[facility] Work Phone: Start: 04-02-2024 End: 04-02-2024 Patient encounter status Elsie Ferris PRODUCT SAFETY CONSULTANT-C [facility] Start: 04-02-2024 End: 04-02-2024 ambulatory Danisha Menchaca Facility:[facility] Start: 03-13-2024 End: 03-13-2024 Telephone encounter Tristian Martin PA-C Work Phone: Pain Management Comment on above: Pt received partial fill of oxycodone Start: 03-13-2024 End: 03-13-[address] Liliana Wyman MD -[facility], [facility] Work Phone: Start: 03-13-2024 End: 03-13-[address] [facility] Facility:[facility] Start: 03-08-2024 End: 03-08-2024 Office outpatient visit 25 minutes Tristian Montoyaos PA-C Work Phone: [facility] Comment on above: Lumbar spondylosis ( Primary Dx); Chronic pain syndrome; High risk medication use; Lumbar radiculopathy; Osteoarthritis of both knees, unspecified osteoarthritis type; Inflammatory spondylopathy of lumbar region (HCC) Start: 03-08-2024 End: 03-08-2024 ambulatory TRISTIAN MARTIN Facility:[id number] Start: 02-24-2024 End: 03-01-2024 Refill Tristian Veronica PA-C Work Phone: [facility] Management Comment on above: Refill Request Start: 02-16-2024 End: 02-16-2024 Patient encounter procedure Ashley Montiel NP-Trish -Laboratory, [facility] Start: 02-16-2024 End: 02-16-2024 ambulatory Ashley Montiel [facility] Facility:[facility] Start: 02-07-2024 End: 02-08-2024 Refill Tristian Veronica PA-C Work Phone: [facility] Comment on above: Refill Request Start: 01-23-2024 End: 01-23-2024 Refill Jay Esparza MD Work Phone: [facility] Comment on above: Refill Request Start: 01-03-2024 End: 01-03-2024 Refill Jay Esparza MD Work Phone: [facility] Comment on above: Refill Request Start: 12-23-2023 End: 12-23-2023 ambulatory Liliana Garo Facility:[facility] Start: 12-14-2023 End: 02-16-2024 Telephone encounter Jay Esparza MD Work Phone: [facility] Start: 12-07-2023 End: 12-07-2023 Patient encounter procedure Jay Esparza MD Work Phone: [facility] Comment on above: Lumbar spondylosis ( Primary Dx); Other chronic pain; Chronic pain syndrome Start: 12-07-2023 End: 12-07-2023 ambulatory JAY ESPARZA Facility:[id number] Start: 11-22-2023 End: 11-22-2023 Refill Jay Esparza MD Work Phone: [facility] Comment on above: Refill Request Start: 11-07-2023 End: 11-07-2023 Refill Jay Esparza MD Work Phone: [facility] Comment on above: Refill Request Start: 10-21-2023 End: 10-21-2023 Refill Jay Esparza MD Work Phone: [facility] Comment on above: Refill Request Start: 10-03-2023 Refill Jay youngblood MD Work Phone: [facility] Comment on above: Refill Request Start: 09-23-2023 Refill Jay youngblood MD Work Phone: [facility] Management Comment on above: Refill Request Start: 09-11-2023 End: 09-12-2023 ambulatory SYDNI Chambers [facility] Start: 09-11-2023 End: 09-11-2023 Subsequent hospital visit by physician Sonu Cadena [facility] Comment on above: Arrived Start: 09-11-2023 End: 09-11-2023 Emergency department patient visit NO ASSIGNED PCP GENERIC PROVIDER [facility] Work Phone: Comment on above: Vasovagal episode (P rimary Dx); Abdominal cramping Start: 09-08-2023 Refill Jay youngblood MD Work Phone: [facility] Management Comment on above: Refill Request Start: 09-07-2023 End: 09-07-2023 Patient encounter procedure Jay Esparza MD Work Phone: [facility] Management Comment on above: Chronic pain syndrom e (Primary Dx) Start: 08-08-2023 Refill Jay youngblood MD Work Phone: [facility] Comment on above: Refill Request Start: 07-25-2023 Refill Jay youngblood MD Work Phone: [facility] Comment on above: Refill Request Start: 07-07-2023 Refill Jay youngblood MD Work Phone: [facility] Comment on above: Refill Request Start: 06-09-2023 End: 06-09-2023 Patient encounter procedure Jay Esparza MD Work Phone: [facility] Comment on above: Chronic pain syndrom e (Primary Dx) Start: 06-03-2023 Refill Jay youngblood MD Work Phone: [facility] Comment on above: Med Change Request Start: 05-09-2023 Refill Jay youngblood MD Work Phone: [facility] Comment on above: Refill Request Start: 05-04-2023 Refill Jay youngblood MD Work Phone: [facility] Comment on above: Med Change Request Start: 04-11-2023 End: 04-11-[address] Danisha Briggs Work Phone: [facility] Work Phone: Start: 04-11-2023 End: 04-11-[address] Danihsa Briggs Work Phone: [facility] Work Phone: Start: 04-08-2023 End: 04-08-[address] Danisha Briggs Work Phone: [facility] Work Phone: Start: 04-08-2023 End: 04-08-[address] Danisha Briggs Work Phone: [facility] Work Phone: Start: 04-06-2023 Refill Jay youngblood MD Work Phone: [facility] Comment on above: Refill Request Start: 03-28-2023 End: 03-28-[address] Danisha Briggs Work Phone: [facility] Work Phone: Start: 03-28-2023 End: 03-28-[address] Danisha Briggs Work Phone: [facility] Work Phone: Start: 01-17-2023 Patient encounter procedure [facility] Start: 01-17-2023 Telephone encounter Brett Quinteros rco MOTOR VEHICLE PARTS INTERPRETER.TALENT MANAGEMENT SPECIALIST Work Phone: Pain Management Comment on above: PA Submitted for mary icodone roxicodone approval Start: 01-10-2023 Refill Génesis Araiza DO Work Phone: [facility] Comment on above: Refill Request Start: 01-07-2023 End: 01-07-[address] Danisha Briggs Work Phone: [facility] Work Phone: Start: 12-30-2022 Refill Génesis Araiza DO Work Phone: [facility] Comment on above: Refill Request Start: 12-10-2022 Refill Génesis Araiza DO Work Phone: [facility] Comment on above: Refill Request Start: 12-06-2022 End: 12-06-2022 Patient encounter procedure Génesis Osorio DO Work Phone: [facility] Comment on above: Chronic pain syndrom e (Primary Dx); Displacement of lumbar intervertebral disc without myelopathy; Osteoarthritis of both knees, unspecified osteoarthritis type; Other spondylosis, lumbosacral region; Lumbar radiculopathy; High risk medication use; Encounter for long-term (current) use of high-risk medication; Generalized osteoarthrosis, involving multiple sites; Inflammatory spondylopathy of lumbar region (HCC); Myofascial pain syndrome; Right carpal tunnel syndrome [G56.01 (ICD-10-CM)]; Morbid obesity (HCC) Start: 12-04-2022 Refill Estephania Rondon APRN.TALENT MANAGEMENT SPECIALIST Work Phone: [facility] Comment on above: Med Change Request Start: 11-08-2022 Refill Génesis Araiza DO Work Phone: [facility] Comment on above: Refill Request Start: 11-02-2022 Refill Génesis Araiza DO Work Phone: [facility] Comment on above: Refill Request Start: 10-08-2022 Refill Génesis Araiza DO Work Phone: [facility] Comment on above: Refill Request Start: 09-20-2022 End: 09-20-2022 Patient encounter procedure Génesis Osorio DO Work Phone: [facility] Management Comment on above: Chronic pain syndrom e (Primary Dx); Displacement of lumbar intervertebral disc without myelopathy; Other spondylosis, lumbosacral region; Osteoarthritis of both knees, unspecified osteoarthritis type; Lumbar radiculopathy; High risk medication use; Encounter for long-term (current) use of high-risk medication; Generalized osteoarthrosis, involving multiple sites; Inflammatory spondylopathy of lumbar region (HCC); Myofascial pain syndrome; Right carpal tunnel syndrome [G56.01 (ICD-10-CM)]; Morbid obesity (HCC) Start: 09-08-2022 Refill Rosie Tello APRN.RUBBER PROCESS HAND Work Phone: [facility] Comment on above: Refill Request Start: 09-03-2022 Refill Rosie Tello MOTOR VEHICLE PARTS INTERPRETER.RUBBER PROCESS HAND Work Phone: [facility] Comment on above: Refill Request Start: 09-01-2022 Refill Rosie Tello MOTOR VEHICLE PARTS INTERPRETER.RUBBER PROCESS HAND Work Phone: [facility] Comment on above: Refill Request Start: 08-09-2022 Refill Rosie Sarmientofield KELLEY.RUBBER PROCESS HAND Work Phone: Pain Management Comment on above: Refill Request Start: 08-04-2022 Refill Génesis Araiza DO Work Phone: [facility] Comment on above: Refill Request Start: 07-07-2022 End: 07-07-2022 Emergency department patient visit Dr. Иван Coburn Facility:[id number] Start: 06-28-2022 End: 06-28-[address] Danisha Briggs Work Phone: [facility] Work Phone: Start: 06-28-2022 End: 06-28-[address] Danisha Briggs Work Phone: [facility] Start: 06-09-2022 Refill Génesis Araiza DO Work Phone: [facility] Management Comment on above: Refill Request Start: 06-04-2022 Refill Rosieraheel SarmientoBentleyfield KELLEY.RUBBER PROCESS HAND Work Phone: Pain Management Comment on above: Refill Request Start: 06-03-2022 Refill Génesis Araiza DO Work Phone: [facility] Comment on above: Refill Request Start: 05-24-2022 End: 05-24-2022 Patient encounter procedure Génesis Osorio DO Work Phone: Pain Management Comment on above: Chronic pain syndrom e (Primary Dx); Displacement of lumbar intervertebral disc without myelopathy; Other spondylosis, lumbosacral region; Osteoarthritis of both knees, unspecified osteoarthritis type; Lumbar radiculopathy; High risk medication use; Encounter for long-term (current) use of high-risk medication; Generalized osteoarthrosis, involving multiple sites; Inflammatory spondylopathy of lumbar region (HCC); Myofascial pain syndrome; Right carpal tunnel syndrome [G56.01 (ICD-10-CM)] Start: 05-20-2022 End: 05-20-[address] Danisha Briggs Work Phone: [facility] Start: 05-10-2022 Refill Génesis Araiza DO Work Phone: Pain Management Comment on above: Refill Request Start: 04-19-2022 End: 04-19-2022 Patient encounter procedure Génesis Osorio DO Work Phone: Pain Management Comment on above: Chronic pain syndrom e (Primary Dx); Displacement of lumbar intervertebral disc without myelopathy; Other spondylosis, lumbosacral region; Osteoarthritis of both knees, unspecified osteoarthritis type; Lumbar radiculopathy; High risk medication use; Encounter for long-term (current) use of high-risk medication; Generalized osteoarthrosis, involving multiple sites; Inflammatory spondylopathy of lumbar region ([facility]) Start: 04-09-2022 Refill Rosie Tello MOTOR VEHICLE PARTS INTERPRETER.RUBBER PROCESS HAND Work Phone: Pain Management Comment on above: Refill Request Start: 04-05-2022 End: 04-05-[address] Danisha Briggs Work Phone: [facility] Work Phone: Start: 04-05-2022 End: 04-05-[address] Danisha Briggs Work Phone: [facility] [place] Start: 04-02-2022 Refill Rosie Bentley MOTOR VEHICLE PARTS INTERPRETER.RUBBER PROCESS HAND Work Phone: Pain Management Comment on above: Refill Request Start: 03-10-2022 Refill Rosie Elisha MOTOR VEHICLE PARTS INTERPRETER.RUBBER PROCESS HAND Work Phone: Pain Management Comment on above: Refill Request Start: 02-18-2022 End: 02-18-2022 Office outpatient visit 25 minutes Rosie Elisha MOTOR VEHICLE PARTS INTERPRETER.RUBBER PROCESS HAND Work Phone: Pain Management Comment on above: Displacement of lumb ar intervertebral disc without myelopathy (Primary Dx); Other spondylosis, lumbosacral region; Osteoarthritis of both knees, unspecified osteoarthritis type; Lumbar radiculopathy; Chronic pain syndrome; High risk medication use Start: 02-18-2022 End: 02-18-[address] Danisha Briggs Work Phone: [facility] Work Phone: Start: 02-18-2022 End: 02-18-[address] Danisha Briggs Work Phone: [facility] Start: 02-18-2022 End: 02-18-[address] Danisha Briggs Work Phone: [facility] Start: 01-26-2022 Refill Génesis Araiza DO Work Phone: Pain Management Comment on above: Refill Request Start: 12-07-2021 End: 12-07-[address] Danisha Briggs Work Phone: [facility] Work Phone: Start: 12-07-2021 End: 12-07-[address] Danisha Briggs Work Phone: [facility] Start: 12-07-2021 End: 12-07-[address] Danisha Briggs Work Phone: [facility]opa[facility] Start: 11-30-2021 Refill Génesis Araiza DO Work Phone: Pain Management Comment on above: Refill Request Start: 11-24-2021 End: 11-24-2021 Patient encounter procedure Génesis Osorio DO Work Phone: Pain Management Comment on above: Chronic pain syndrom e (Primary Dx); Encounter for long-term (current) use of high-risk medication; Morbid obesity (HCC) Start: 11-20-2021 Non-patient / Non-visit Dr. Kartik Briggs Work Phone: [facility] Start: 11-20-2021 End: 11-20-[address] Danisha Briggs Work Phone: [facility] Work Phone: Start: 11-20-2021 End: 11-20-[address] Danisha Briggs Work Phone: [facility] Start: 11-20-2021 End: 11-20-[address] Danisha Briggs Work Phone: [facility] Internal Medicine Start: 10-30-2021 Refill Estephania E Rondon [employer]OR [employer]S INTERPRETER.TALENT MANAGEMENT SPECIALIST Work Phone: Pain Management Comment on above: Refill Request Start: 10-22-2021 Telephone encounter Estephania ray [employer]S INTERPRETER.TALENT MANAGEMENT SPECIALIST Work Phone: Pain Management Comment on above: Patient Question Start: 10-02-2021 Chart abstracting Janet Angelrambo TALENT MANAGEMENT SPECIALIST Work Phone: Pain Management Start: 09-22-2021 Refill Estephania E Rondon [employer]S INTERPRETER.TALENT MANAGEMENT SPECIALIST Work Phone: Pain Management Comment on above: Refill Request Start: 09-08-2021 End: 09-08-[address] Danisha Briggs Work Phone: [facility] Start: 08-28-2021 End: 08-28-2021 ambulatory Estephania E Rondon [employer]S INTERPRETER.TALENT MANAGEMENT SPECIALIST Work Phone: Pain Management Comment on above: Chronic pain syndrom e (Primary Dx); Osteoarthritis of both knees, unspecified osteoarthritis type; Generalized osteoarthrosis, involving multiple sites; Inflammatory spondylopathy of lumbar region (HCC) Start: 08-28-2021 End: 08-28-2021 Telemedicine consultation with patient Estephania E Rondon MOT[employer] PARTS INTERPRETER.TALENT MANAGEMENT SPECIALIST Work Phone: [facility] Start: 08-04-2021 End: 08-04-2021 Subsequent hospital visit by physician Brett Pastor APRN.TALENT MANAGEMENT SPECIALIST Work Phone: [facility] Comment on above: VIRTUAL Start: 07-29-2021 End: 07-29-[address] Danisha Briggs Work Phone: [facility] Internal Medicine Start: 07-10-2021 End: 07-10-2021 Patient encounter procedure [facility] Start: 07-03-2021 End: 07-03-2021 Subsequent hospital visit by physician Estephania Rondon APRN.TALENT MANAGEMENT SPECIALIST Work Phone: [facility] Comment on above: VIRTUAL Start: 05-29-2021 End: 05-29-2021 Subsequent hospital visit by physician Estephania Rondon MD Work Phone: [facility] Comment on above: VIRTUAL Start: 04-30-2021 End: 04-30-2021 Patient encounter procedure [facility] Start: 09-03-2020 Patient encounter status [facility] Start: 04-30-2020 End: 04-30-2020 Orders Only Shelli Osorio Florentin Work Phone: [facility] Start: 08-22-2019 End: 08-26-2019 Patient encounter procedure DANISHA BRIGGS [facility] Ambulatory Start: 08-22-2019 End: 08-22-2019 Office outpatient new 30 minutes Danisha Briggs Work Phone: [facility] V[facility] Phys[facility] Comment on above: Venous (peripheral) insufficiency; Morbid obesity with BMI of 60.0-69.9, adult (HCC); Edema of both legs Start: 01-04-2019 Patient encounter procedure SOREN COREY [facility] Ambulatory Start: 04-26-2018 End: 04-26-2018 Office outpatient visit 15 minutes Ernesto Montiel Work Phone: [facility] Phys[facility] Comment on above: Primary osteoarthrit is of left knee (Primary Dx) Start: 08-31-2017 Ambulatory Lenore Villa y:[facility] Start: 04-10-2017 End: 04-10-2017 Emergency department patient visit Taryn Banegas Facility:[facility] Start: 02-04-2017 End: 02-05-2017 [facility] Start: 01-21-2017 Ambulatory ASHLEY NOLASCO [facility] Start: 12-24-2016 Ambulatory ASHLEY NOLASCO [facility] Start: 12-09-2016 Ambulatory ASHLEY NOLASCO [facility] Start: 11-30-2016 End: 11-30-2016 Ambulatory ASHLEY ANNE Facility:[facility] Procedures Date Procedure Procedure Detail Performing Clinician Start: 09-11-2023 Urnls dip stick/tabl et rgnt auto w/o microscopy Sydni Drew MOT[employer] VEH[employer] PARTS INTERPRETER-TALENT MANAGEMENT SPECIALIST Work Phone: Start: 09-11-2023 Radiologic exam ches t single view Sydni Drew [employer] VEH[employer] PARTS INTERPRETER-TALENT MANAGEMENT SPECIALIST Work Phone: Start: 09-11-2023 Comprehensive metabo lic panel Sydni Drew [employer]S INTERPRETER-TALENT MANAGEMENT SPECIALIST Work Phone: Start: 09-11-2023 Ecg routine ecg w/le ast 12 lds trcg only w/o i&r Sydni Drew [employer]S INTERPRETER-TALENT MANAGEMENT SPECIALIST Work Phone: Start: 04-11-2023 Screening mammography Timi Briggs Work Phone: Start: 06-28-[address] Ed Briggs Work Phone: Start: 12-07-2021 Radiologic examinati on of knee Dr. Danisha Briggs Work Phone: Start: 12-07-2021 X-ray of lumbar spin e, two or three views Dr. Danisha Briggs Work Phone: Start: 04-26-2018 Arthrocentesis Ernesto Montiel Work Phone: Plan of Treatment Date Care Activity Detail Author Start: 07-07-2032 DTaP/Tdap/Td Vaccine s (3 - Td or Tdap) DTaP/Tdap/Td Vaccines (3 - Td or Tdap) [facility] Start: 07-07-2032 Urine microalbumin profile DTaP,Tdap,Td Vaccine (3 - Td or Tdap) [facility] Start: 03-08-2027 Tetanus vaccination Tetanus: Every 1 0yrs [facility] Start: 03-08-2027 Urine microalbumin profile [facility] Start: 09-10-2026 Diabetes Screening Diabetes Screenin g [facility] Start: 12-10-2024 End: 12-10-2024 Patient encounter procedure 12/10/2024 9:30 AM EDT Office Visit Pain Management [address] [place] [address] Tristian Martin PA-C [address] [place] [address] 3 month follow up Pain Management Comment on above: 3 month follow up Start: 10-22-2024 Influenza vaccination [facility] Start: 09-10-2024 Creatinine measurement Serum Creatin ine [facility] Start: 09-04-2024 End: 09-04-2024 Patient encounter procedure 09/04/2024 9:30 AM EDT Office Visit Pain Management [address] [place] [address] Tristian Martin PA-C [address] [place] [address] 3 Month follow up Pain Management Comment on above: 3 Month follow up Start: 06-05-2024 End: 09-04-2024 TOXASSURE FLEX 23, URINE TOXASSURE FLEX 23, URINE Lab Routine Chronic pain syndrome Expected: 06/05/2024, Expires: 09/04/2024 [facility] Work Phone: Comment on above: Expected: 06/05/2024 , Expires: 09/04/2024 Start: 06-05-2024 End: 06-05-2024 Patient encounter procedure 06/05/2024 8:30 AM EDT Office Visit Pain Management [address] [place] [address] Tristian Martin PA-C [address] [place] [address] Follow Up Pain Management Comment on above: Follow Up Start: 03-08-2024 End: 03-08-2024 Patient encounter procedure 03/08/2024 10:30 AM EST Office Visit Pain Management [address] [place] [address] Tristian Martin PA-C [address] [place] [address] 3 month follow up Pain Management Comment on above: 3 month follow up Start: 02-22-2024 Medicare Advantage Annual Wellness Visit Medicare Advantage Annual Wellness Visit [facility] Start: 12-07-2023 End: 03-07-2024 TOXASSURE FLEX 23, URINE TOXASSURE FLEX 23, URINE Lab Routine Other chronic pain Expected: 12/07/2023, Expires: 03/07/2024 [facility] Work Phone: Comment on above: Expected: 12/07/2023 , Expires: 03/07/2024 Start: 12-07-2023 End: 12-07-2023 Patient encounter procedure 12/07/2023 10:30 AM EDT Office Visit Pain Management [address] [place] [address] Jay Esparza MD [address] [place] [address] 3 month follow up Pain Management Comment on above: 3 month follow up Start: 10-23-2023 Covid-19 Vaccine ( season) Covid-19 Vaccine ( season) [facility] Start: 10-23-2023 Covid-19 Vaccine ( season) Covid-19 Vaccine ( season) [facility] Start: 10-23-2023 Influenza vaccination [facility] Start: 09-07-2023 End: 09-07-2023 Patient encounter procedure 09/07/2023 9:30 AM EDT Office Visit Pain Management [address] [place] [address] Jay Esparza MD [address] [place] [address] Follow Up Pain Management Comment on above: Follow Up Start: 06-09-2023 End: 09-08-2023 TOXASSURE FLEX 23, URINE TOXASSURE FLEX 23, URINE Lab Routine Chronic pain syndrome Expected: 06/09/2023, Expires: 09/08/2023 [facility] Work Phone: Comment on above: Expected: 06/09/2023 , Expires: 09/08/2023 Start: 02-21-2023 Behavioral Health Screening Behavioral Health Screening [facility] Start: 02-21-2023 Depression Assessment Depression Ass essment [facility] Start: 12-06-2022 End: 02-05-2023 TOXASSURE FLEX 23, URINE TOXASSURE FLEX 23, URINE Lab Routine Chronic pain syndrome Other spondylosis, lumbosacral region Lumbar radiculopathy Expected: 12/06/2022, Expires: 02/05/2023 [facility] Work Phone: Comment on above: Expected: 12/06/2022 , Expires: 02/05/2023 Start: 10-22-2022 Covid-19 Vaccine ( season) Covid-19 Vaccine () [facility] Start: 10-22-[address] [facility] Start: 2022 Hepatitis B Vaccine (1 of 3 - Risk 3-dose series) Hepatitis B Vaccine (1 of 3 - Risk 3-dose series) [facility] Start: 2022 Hepatitis B Vaccines (1 of 3 - Risk 3-dose series) Hepatitis B Vaccines (1 of 3 - Risk 3-dose series) [facility] Start: 2022 RSV patient s and/or patients aged 60+ years (1 - 1-dose 60+ series) RSV patients and/or patients aged 60+ years (1 - 1-dose 60+ series) [facility] Start: 2022 RSV Vaccine (1 - 1-d ose 60+ series) RSV Vaccine (1 - 1-dose 60+ series) [facility] Start: 2022 RSV Vaccine (1 - Ris k 60-74 years 1-dose series) RSV Vaccine (1 - Risk 60-74 years 1-dose series) [facility] Start: 07-18-2022 Screening for malign ant neoplasm of colon [facility] Start: 05-20-2022 Patient referral [facility] Work Phone: Start: 04-19-2022 End: 06-19-2022 TOXASSURE FLEX 23, URINE TOXASSURE FLEX 23, URINE Lab Routine Chronic pain syndrome Displacement of lumbar intervertebral disc without myelopathy Other spondylosis, lumbosacral region Osteoarthritis of both knees, unspecified osteoarthritis type Expected: 04/19/2022, Expires: 06/19/2022 [facility] Work Phone: Comment on above: Expected: 04/19/2022 , Expires: 06/19/2022 Start: 02-21-2022 DEPRESSION ASSESSMENT DEPRESSION ASS ESSMENT [facility] Start: 11-24-2021 End: 01-24-2022 DRUG SCR TOXASURE DRUG SCR TOXASURE Lab Routine Chronic pain syndrome Expected: 11/24/2021, Expires: 01/24/2022 [facility] Work Phone: Comment on above: Expected: 11/24/2021 , Expires: 01/24/2022 Start: 10-22-[address] [facility] Start: 04-28-2021 COVID-19 VACCINE (4 - Booster for Moderna series) COVID-19 VACCINE (4 - Booster for Moderna series) [facility] Start: 04-22-2021 COVID-19 VACCINE (4 - Booster for Moderna series) COVID-19 VACCINE (4 - Booster for Moderna series) [facility] Start: 03-25-2021 COVID-19 VACCINE (4 - Booster for Moderna series) COVID-19 VACCINE (4 - Booster for Moderna series) [facility] Start: 03-25-2021 COVID-19 VACCINE (4 - Moderna risk series) COVID-19 VACCINE (4 - Moderna risk series) [facility] Start: 02-21-2021 DEPRESSION ASSESSMENT DEPRESSION ASS ESSMENT [facility] Start: 10-22-2020 Influenza vaccination INFLUENZA (#1) [facility] Start: 01-22-2020 DIABETES SCREEN DIABETES SCREEN [facility] Start: 10-23-2019 Influenza vaccinatio n given Sequential Influenza Vaccine (#1) [facility] Start: 01-21-2018 Complete blood count Hemoglobin/Jonathan tocrit [facility] Start: 01-21-2018 Creatinine measurement Serum Creatin ine [facility] Start: 01-21-2018 HEMOGLOBIN/HEMATOCRIT HEMOGLOBIN/HEM ATOCRIT [facility] Start: 01-21-2018 SERUM CREATININE SERUM CREATININE Cl [facility] Start: 10-22-2017 Influenza vaccinatio n given SEQUENTIAL INFLUENZA VACCINE (#1) [facility] Start: 2012 Administration of he rpes zoster vaccine Zoster Vaccines (1 of 2) [facility] Start: 2012 Screening for malign ant neoplasm of colon [facility] Start: 2012 SHINGRIX VACCINE (1 of 2) SHINGRIX VACCINE (1 of 2) [facility] Start: 2012 Zoster Vaccines (1 of 2) Zoster Vacc travis (1 of 2) [facility] Start: 09-22-2007 COLOGUARD (FIT-DNA) COLOGUARD (FIT-D NA) [facility] Start: 09-22-2007 Colonoscopy COLONOSCOPY [facility] Start: 09-22-2007 COLORECTAL CANCER SCREENING COLORECTAL CANCER SCREENING [facility] Start: 09-22-[address] COLONOGRAPHY [facility] Start: 09-22-2007 FECAL OCCULT BLOOD FECAL OCCULT BLOO D [facility] Start: 09-22-2007 Lipid panel [facility] Start: 09-22-2007 LIPID SCREEN LIPID SCREEN [facility] Start: 09-22-2007 Screening for malign ant neoplasm of colon [facility] Start: 09-22-2007 SIG[facility]OSCOPY [facility] Start: 2002 Mammography [facility] Start: 2002 Screening for malign ant neoplasm of breast [facility] Start: 1992 HPV TESTING HPV TESTING [facility] Start: 1992 Screening for malign ant neoplasm of cervix HPV Testing [facility] Start: 09-22-1983 PAP TESTING PAP TESTING [facility] Start: 09-22-1983 Screening for malign ant neoplasm of cervix [facility] Start: 1981 Hepatitis A Vaccines (1 of 2 - Risk 2-dose series) Hepatitis A Vaccines (1 of 2 - Risk 2-dose series) [facility] Start: 1981 Pneumococcal Vaccine : 50+ (1 of 2 - PCV) Pneumococcal Vaccine: 50+ (1 of 2 - PCV) [facility] Start: 1981 SHINGRIX VACCINE (1 of 2) SHINGRIX VACCINE (1 of 2) [facility] Start: 1981 Urine microalbumin profile DTAP,TDAP,TD (1 - Tdap) [facility] Start: 1980 ANNUAL PCP TEAM COMMUNICATION CONSULTANT NEL DISEASE VISIT ANNUAL PCP TEAM CHRONIC DISEASE VISIT [facility] Start: 1980 BP CONTROLLED (<130/80) BP CONTROLLE D (<130/80) [facility] Start: 1980 Depression Screening Depression Scre ening [facility] Start: 1980 Diabetes mellitus screening Diabetes Screening [facility] Start: 1980 Hepatitis B surface antibody level LDL CHOLESTEROL [facility] Start: 1980 Hepatitis C antibody , confirmatory test Hepatitis C Screening [facility] Start: 1980 HEPATITIS C SCREENING HEPATITIS C [facility] Start: 1980 Hepatitis C screening Hepatitis C [facility] Start: 1980 HIV SCREENING HIV SCREENING [facility] Start: 1980 HIV screening HIV Screening [facility] Start: 1978 COVID-19 Vaccine (1 of 2) COVID-19 Vaccine (1 of 2) [facility] Start: 1977 HIV screening HIV Screening [facility] Start: 1974 Adolescent depressio n screening assessment [facility] Start: 1974 COVID-19 VACCINE (1) COVID-19 VACCIN E (1) [facility] Start: 1973 Screening for malign ant neoplasm of cervix Cervical Cancer Screening [facility] Start: 1972 3 comp foot exam completed DIABETIC FOOT EXAM [facility] Start: 1972 Diabetic foot examination Diabetic Foot Exam [facility] Start: 1972 Glaucoma screening Dilated Retinal E xam [facility] Start: 1972 Hepatitis B screening URINE AL BUMIN:CREATININE RATIO [facility] Start: 1972 Hepatitis C antibody , confirmatory test DILATED RETINAL EXAM [facility] Start: 1968 PNEUMOCOCCAL (1 - PCV) PNEUMOCOCCAL (1 - PCV) [facility] Start: 1968 Pneumococcal vaccination [facility] Start: 09-22-1967 COVID-19 VACCINE (#1) COVID-19 VACCI NE (#1) [facility] Start: 09-22-1967 Hemoglobin A1c measurement HbA1C [facility] Start: 09-22-1967 Hemoglobin A1c/Hemoglobin.total in Blood HBA1C [facility] Start: 1965 History and physical examination, annual for health maintenance Wellness Visit [facility] Start: 09-22-1963 MMR Vaccines (1 of 1 - Standard series) MMR Vaccines (1 of 1 - Standard series) [facility] Start: 1962 Depression screening using PHQ-9 (Patient Health Questionnaire 9) score Depression Screening (PHQ9) [facility] Start: 1962 HEPATITIS B (1 of 3 - 3-dose series) HEPATITIS B (1 of 3 - 3-dose series) [facility] Start: 1962 Hepatitis C antibody , confirmatory test HEPATITIS C SCREENING [facility] Start: 1962 HIV screening HIV Screening [facility] Start: 1962 Lipid panel Lipid Panel [facility] Start: 1962 Medicare Annual Well ness Visit Medicare Annual Wellness Visit (AWV) [facility] Start: 1962 Protein mass conc [facility] Start: 1962 Screening for malign ant neoplasm of cervix PAP SMEAR [facility] Start: 1962 Screening for malign ant neoplasm of colon [facility] Start: 1962 Screening mammography Mammogram [facility] Start: 1962 Tetanus vaccination TETANUS EVERY 10 YR [facility] Start: 1962 Thyroid stimulating hormone measurement TSH Level [facility] Start: 1962 Yearly Adult Physical Yearly Adult P hysical [facility] Arthrocentesis LG Jt Injection/Arthrocentesis : L knee Routine Primary osteoarthritis of left knee 04/26/2018 6:36 PM EST [facility] End: 07-21-2024 ECG 12 lead [facility] Work Phone: Comment on above: Once for 1 Occurrenc es starting 09/11/2023 until 09/11/2023 End: 09-11-2023 Extra Urine Colvin Tube [facility] Work Phone: Comment on above: Once for 1 Occurrenc es starting 09/11/2023 until 09/11/2023 MG Breast - bilatera l Screening [facility] Patient referral [facility] Work Phone: End: 09-11-2023 Urinalysis complete W Reflex Culture panel - Urine [facility] Service Area Work Phone: Comment on above: Once (Lab) for 1 Occ urrences starting 09/11/2023 until 09/11/2023 End: 10-04-2025 XR Knee - left 4 Views XR KNEE GENERAL 4V AP BOTH/PA BOTH/LAT/MERC LEFT Radiology Routine Chronic pain of left knee 1 Occurrences starting 09/04/2024 until 10/04/2025 [facility] Work Phone: Comment on above: 1 Occurrences starti ng 09/04/2024 until 10/04/2025 [facility] Immunizations Immunization Date Immunization Notes Care Provider Eloy ceballos 01-28-2021 Seasonal, quadrivale nt, recombinant, injectable influenza vaccine, preservative free Janet Zafar TALENT MANAGEMENT SPECIALIST Work Phone: [facility] 01-28-2021 influenza virus vacc ine, unspecified formulation Génesis Osorio DO Work Phone: [facility] 12-01-2019 Seasonal, quadrivale nt, recombinant, injectable influenza vaccine, preservative free Janet Zafar TALENT MANAGEMENT SPECIALIST Work Phone: [facility] 11-30-2018 Seasonal, quadrivale nt, recombinant, injectable influenza vaccine, preservative free Janet Zafar TALENT MANAGEMENT SPECIALIST Work Phone: [facility] 03-08-2017 tetanus toxoid, redu akira diphtheria toxoid, and acellular pertussis vaccine, adsorbed Janet Zafar TALENT MANAGEMENT SPECIALIST Work Phone: [facility] Payers Date Payer Category Payer Self-pay [id number] 2022 Medicare (Managed Care) [employer] [place] [employer] [id number] 2022 Private Health Insurance 101 [id number] 2021 Medicare [id number] 2018 Medicare MMO MANAGED MEDI CARE O MANAGED MEDICARE O [id number] 2018-Present [id number] 2018 Medicare [id number] 2018 Medicare MMO MANAGED MEDI CARE MMO MANAGED MEDICARE [id number] 2018-Present [id number] 2015 Unknown [id number] 2015 Unknown 2015 Unknown [facility] [id number] 2015-Present [phone] [address] [place] [address] O [id number] 1962 Unknown [id number] 1962 Unknown [id number] 903 1962 Unknown [id number] 1069 1962 Unknown [id number] 1243 1962 Unknown [id number] 1243 Unknown [id number] Unknown [id number] Unknown [id number] 462 Unknown [id number] 462 Unknown [id number] 462 Unknown [id number] 462 Unknown [id number] 462 Unknown [id number] 462 Unknown [id number] 462 Social History Date Type Detail Facility Start: 04-26-2018 Tobacco smoking stat [facility] Never smoker [facility] Start: 1960 Sex Assigned At Not on file [facility] Start: 08-22-2019 End: 12-07-2023 Tobacco smoking status NHIS Former smoker [facility] Start: 08-22-2019 End: 08-16-2022 Cigarettes smoked current (pack per day) - Reported [facility] Start: 08-22-2019 End: 09-04-2024 Alcohol intake Current non-drinker of alcohol (finding) [facility] Start: 08-22-2019 Tobacco Comment quit 1999 [facility] Start: 08-18-2021 End: 09-11-2023 Exposure to SARS-CoV-2 (event) Not sure [facility] Start: 08-22-2019 Tobacco use and exposure Never used [facility] End: 09-23-1999 History of tobacco use Current smoker [facility] End: 04-10-1999 History of tobacco use User of smokeless tobacco [facility] Start: 01-04-2020 End: 01-04-2020 Tobacco smoking status [facility] Unknown if ever smoked [facility] Start: 1960 Sex Assigned At Female [facility] End: 09-23-1999 History of tobacco use Cigarette Smoker [facility] Work Phone: Start: 01-21-2017 End: 12-07-2023 Tobacco use and exposure Former smokeless tobacco user [facility] Work Phone: Start: 05-24-2022 End: 08-16-2022 Tobacco use panel [facility] National Score (1-10 0), lower number is lower risk 94 [facility] Start: 06-13-2024 Sex Female (finding) [facility] Medical Equipment Procedure Code Equipment Code Equipment Original Text Equipment Identifier Dates [employer] plant - [id number] Start: 02-04-2017 Lead Vectris 5mm 60cm Neurostimulator 1x8 Electrode Compact Mri - [id number] Start: 02-04-2017 Lead Vectris 5mm 60cm Neurostimulator 1x8 Electrode Compact Mri - [id number] Start: 02-04-2017 Blood Sugar Diag nostic (Freestyle Lite Strips) strip Start: 05-30-2019 Lancets (Freesty le Lancets) 28 gauge misc Start: 05-30-2019 Blood Sugar Diag nostic (Freestyle Lite Strips) strip Start: 05-30-2019 Lancets (Freesty le Lancets) 28 gauge misc Start: 05-30-2019 Blood Sugar Diag nostic (Freestyle Lite Strips) strip Start: 05-30-2019 Lancets (Freesty le Lancets) 28 gauge misc Start: 05-30-2019 Blood Sugar Diag nostic (Freestyle Lite Strips) strip Start: 05-30-2019 Lancets (Freesty le Lancets) 28 gauge misc Start: 05-30-2019 Blood Sugar Diag nostic (Freestyle Lite Strips) strip Start: 05-30-2019 Lancets (Freesty le Lancets) 28 gauge misc Start: 05-30-2019 Blood Sugar Diag nostic (Freestyle Lite Strips) strip Start: 05-30-2019 Lancets (Freesty le Lancets) 28 gauge misc Start: 05-30-2019 Blood Sugar Diag nostic (Freestyle Lite Strips) strip Start: 05-30-2019 Lancets (Freesty le Lancets) 28 gauge misc Start: 05-30-2019 Blood Sugar Diag nostic (Freestyle Lite Strips) strip Start: 05-30-2019 Lancets (Freesty le Lancets) 28 gauge misc Start: 05-30-2019 Blood Sugar Diag nostic (Freestyle Lite Strips) strip Start: 05-30-2019 Lancets (Freesty le Lancets) 28 gauge misc Start: 05-30-2019 Blood Sugar Diag nostic (Freestyle Lite Strips) strip Start: 05-30-2019 Lancets (Freesty le Lancets) 28 gauge misc Start: 05-30-2019 Blood Sugar Diag nostic (Freestyle Lite Strips) strip Start: 05-30-2019 Lancets (Freesty le Lancets) 28 gauge misc Start: 05-30-2019 Goals Date Patient Goal Desired Activity /State Personal health goal Functional Status Date Assessment Result Facility 02-05-2017 Are you deaf, or do you have serious difficulty hearing No 02/05/2017 2:00 PM Erika Del Cid APRN.TALENT MANAGEMENT SPECIALIST No [facility] Work Phone: 02-05-2017 Are you blind, or do you have serious difficulty seeing, even when wearing glasses No 02/05/2017 2:00 PM Erika Del Cid APRN.CNP No [facility] 02-05-2017 Do you have serious difficulty walking or climbing stairs Yes 02/05/2017 2:00 PM Erika Del Cid APRN.TALENT MANAGEMENT SPECIALIST Yes [facility] 02-05-2017 Do you have difficul ty dressing or bathing Yes 02/05/2017 2:00 PM Erika Del Cid APRN.TALENT MANAGEMENT SPECIALIST Yes [facility] 02-05-2017 Because of a physica l, mental, or emotional condition, do you have difficulty doing errands alone such as visiting a physician's office or shopping Yes 02/05/2017 2:00 PM Erika Del Cid APRN.VY Yes [facility] Mental Status Date Assessment Result Facility 02-05-2017 Because of a physica l, mental, or emotional condition, do you have serious difficulty concentrating, remembering, or making decisions No 02/05/2017 2:00 PM Erika Del Cid APRN.CNP No [facility] Clinical Notes 08-28-2021 to 09-04-2024 Rosie García LPN - 09/04/2024 9:06 AM Tristian Hernández PA-C - 09/04/2024 8:50 AM EDTPatient InstructionsTelephone Encounter - Tristian Martin PA-C - 08/23/2024 4:03 PM EDTPatient Instructions Note Date & Type Note Facility 09-04-2024 Note HNO ID: [id number] Author: ROSIE GARCÍA LPN Service: ? Author Type: LICENSED NURSE Type: Progress Notes Filed: 09/04/2024 09:46 Note Text: Low back have been moving, more pain. Pain goes into legs equally.to knees. Left knee, pain also in right knee had gel shots a few yrs ago, still helping. Have fibromyalgia, aching all over. [facility] 09-04-2024 History of Presen t illness Narrative Low back have been moving, more pain. Pain goes into legs equally.to knees. Left knee, pain also in right knee had gel shots a few yrs ago, still helping. Have fibromyalgia, aching all over. PATIENT: Taryn Self : 1960 DATE OF SERVICE: 09/04/2024 REFERRING PRACTITIONER: Tristian Martin PA-C PRIMARY CARE PROVIDER: Janet Zafar CNP CHIEF COMPLAINT: Patient presents with: Back Pain: Low Pain: Knee- left HISTORY OF PRESENT ILLNESS: Taryn Self is a 63 year old year old female who presents to the clinic today with chief complaint(s) as above. Following up for: chronic pain, low back pain, leg pain Response to treatment recommendations: Pt is prescribed Percocet, Cymbalta and Zanaflex. Medications help reduce pain to tolerable. She denies side effects aside from constipation Current primary concern/description: left knee pain/shooting, intermittent Pain Level: 3 /10 Better with: medication, reposition, rest Worse with: standing, walking Numbness/Tingling: [] Yes [x] No Bladder/bowel fxn change: [] Yes [x] No --- Review of Systems HENT: Negative. Eyes: Negative. Cardiovascular: Positive for leg swelling. Respiratory: Negative. Endocrine: Negative. Skin: Negative. Musculoskeletal: Positive for arthritis, back pain, joint pain, myalgias and stiffness. Gastrointestinal: Positive for constipation. Genitourinary: Negative. Neurological: Negative. Psychiatric/Behavioral: The patient has insomnia. 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 In am DULoxetine (CYMBALTA) 60 mg capsule Take 1 capsule by mouth daily at bedtime. oxyCODONE-acetaminophen (PERCOCET) 10-325 mg tablet Take 1 tablet by mouth four times a day as needed for pain for up to 30 days. naloxone 4 mg/actuation nasal spray (NARCAN) Use 1 spray in one nostril as needed for overdose. May repeat every 2 to 3 min in alternating nostrils until medical assistance is available semaglutide 0.25 mg/0.5 mL (0.5 mg/mL) subcutaneous compounded injection Inject subcutaneously one time a week. metFORMIN (GLUCOPHAGE) 1,000 mg tablet lisinopril-hydroCHLOROthiazide (ZESTORETIC) 10-12.5 mg per tablet Take 1 tablet by mouth every afternoon. gabapentin (NEURONTIN) 100 mg capsule TAKE 1 CAP BY MOUTH NIGHTLY NEEDED busPIRone (BUSPAR) 5 mg tablet Take 1 tablet by mouth every 12 hours. MOUNJARO 10 mg/0.5 mL pen injector VRAYLAR 1.5 mg capsule Take 1 capsule by mouth every afternoon. JARDIANCE 25 mg tablet Clobetasol Propionate 0.05 % lotn Apply to affected area two times a day as needed. omeprazole (PRILOSEC) 20 mg capsule Take 1 capsule by mouth every afternoon. FARXIGA 10 mg tablet levothyroxine (SYNTHROID) 25 mcg tablet Take 1 tablet by mouth every afternoon. levocetirizine 5 mg tablet TAKE 1 TABLET BY MOUTH EVERY EVENING NEEDED ALLERGY SYMPTOMS levothyroxine (SYNTHROID) 200 mcg tablet Take 1 tablet by mouth every afternoon. metroNIDAZOLE (FLAGYL) 500 mg tablet Take 500 mg by mouth three times a day. mupirocin (BACTROBAN) 2 % ointment Apply to affected area three times a day. leflunomide (ARAVA) 20 mg tablet Take 20 mg by mouth once daily. hydrOXYchloroQUINE (PLAQUENIL) 200 mg tablet montelukast (SINGULAIR) 10 mg tablet Take 10 mg by mouth daily at bedtime. predniSONE (DELTASONE) 10 mg tablet Take 10 mg by mouth. Only prn lidocaine-prilocaine (EMLA) 2.5-2.5 % cream Apply to affected area as needed. amLODIPine (NORVASC) 2.5 mg tablet No current facility-administered medications for this visit. OBJECTIVE: VS: BP 131/73 (BP Site: Left Arm, BP Position: Sitting, BP Cuff Size: Large Adult) Pulse 65 Resp 16 Ht 162.6 cm (5' 4) Wt (!) 143.6 kg (316 lb 9.3 oz) SpO2 98% BMI 54.34 kg/m Body mass index is 54.34 kg/m . PHYSICAL EXAMINATION: Physical Exam Constitutional: Appearance: Normal appearance. HENT: Head: Normocephalic and atraumatic. Cardiovascular: Rate and Rhythm: Normal rate. Musculoskeletal: General: TTP medial aspect of left knee. Normal range of motion of knees and hips. Lumbar: midline tenderness, pain with facet palpation, neg SLR Right lower le+ edema. Left lower le+ edema. Skin: General: Skin is warm. Capillary Refill: Capillary refill takes less than 2 seconds. Neurological: Mental Status:Mental status is at baseline. Sensory: No sensory deficit. Motor: No weakness. Gait: Gait normal. Psychiatric: Mood and Affect: Mood normal. Diagnostic Imaging: Other Diagnostic Studies: The OARRS report has been reviewed and is consistent with the patients medical history and medication intake. Urine Drug Screen (UDS): 11/2023. The UDS has been reviewed and is consistent with medications prescribed. Last Urine Drug Screen (UDS): 05/2024. The UDS has been reviewed and is consistent with medications prescribed. IMPRESSION: (G89.4) Chronic pain syndrome (primary encounter diagnosis) (M47.816) Lumbar spondylosis (E66.01) Morbid obesity (HCC) (M54.16) Lumbar radiculopathy (M25.562, G89.29) Chronic pain of left knee Taryn Self is a 63 year old female here with the following issues: Chronic pain Low back pain radiating to buttocks. Previously, pain would radiate to both legs but this improved with the SCS. Left knee pain Chronically managed with narcotics. She denies side effects to the Oxycodone. She is reliant on the medication for maintenance of function. She denies side effects, other than constipation. PLAN: -Recommend: Refill Oxycodone (goes to [facility]), Cymbalta and Zanaflex ([facility]) . Medications are taken as prescribed without side effects OARRS reviewed. Reviewed opioid agreement with pt and updated in the chart Discussed treatment for consitpation. Provided a prescription for Miralax ([facility]) Continue with activity as tolerated Uses the SCS with benefit, battery still holds charge Update left knee x-ray Consider Left knee CSI, previously helpful Follow up in 3 months The risks, benefits, alternative treatment options and prognosis were discussed and all of patient's questions/concerns were addressed. Follow-up: 3 months May certainly follow up sooner if needed. This note was produced using voice recognition software and therefore may contain typos. Please contact the author with any questions or concerns. Author: Tristian Martin PA-C 09/04/2024 8:50 AM documented in this encounter [facility] 09-04-2024 Instructions Tristian Martin PA-C - 09/04/2024 8:53 AM EDT Refill Oxycodone (goes to [facility]), Cymbalta and Zanaflex ([facility]) . Medications are taken as prescribed without side effects OARRS reviewed. Reviewed opioid agreement with pt and updated in the chart Discussed treatment for consitpation. Provided a prescription for Miralax ([facility]) Continue with activity as tolerated Uses the SCS with benefit, battery still holds charge Update left knee x-ray Consider Left knee CSI, previously helpful Follow up in 3 months documented in this encounter [facility] 09-04-2024 Note HNO ID: [id number] Author: TRISTIAN MARTIN PA-C Service: ? Author Type: Physician Director [employer] Type: Progress Notes Filed: 09/04/2024 09:46 Note Text: PATIENT: Taryn Self : 1960 DATE OF SERVICE: 09/04/2024 REFERRING PRACTITIONER: Tristian Martin PA-C PRIMARY CARE PROVIDER: Janet Zafar CNP CHIEF COMPLAINT: Patient presents with: Back Pain: Low Pain: Knee- left HISTORY OF PRESENT ILLNESS: Taryn Self is a 63 year old year old female who presents to the clinic today with chief complaint(s) as above. Following up for: chronic pain, low back pain, leg pain Response to treatment recommendations: Pt is prescribed Percocet, Cymbalta and Zanaflex. Medications help reduce pain to tolerable. She denies side effects aside from constipation Current primary concern/description: left knee pain/shooting, intermittent Pain Level: 3 /10 Better with: medication, reposition, rest Worse with: standing, walking Numbness/Tingling: [] Yes [x] No Bladder/bowel fxn change: [] Yes [x] No --- Review of Systems HENT: Negative. Eyes: Negative. Cardiovascular: Positive for leg swelling. Respiratory: Negative. Endocrine: Negative. Skin: Negative. Musculoskeletal: Positive for arthritis, back pain, joint pain, myalgias and stiffness. Gastrointestinal: Positive for constipation. Genitourinary: Negative. Neurological: Negative. Psychiatric/Behavioral: The patient has insomnia. 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 In am DULoxetine (CYMBALTA) 60 mg capsule Take 1 capsule by mouth daily at bedtime. oxyCODONE-acetaminophen (PERCOCET) 10-325 mg tablet Take 1 tablet by mouth four times a day as needed for pain for up to 30 days. naloxone 4 mg/actuation nasal spray (NARCAN) Use 1 spray in one nostril as needed for overdose. May repeat every 2 to 3 min in alternating nostrils until medical assistance is available semaglutide 0.25 mg/0.5 mL (0.5 mg/mL) subcutaneous compounded injection Inject subcutaneously one time a week. metFORMIN (GLUCOPHAGE) 1,000 mg tablet lisinopril-hydroCHLOROthiazide (ZESTORETIC) 10-12.5 mg per tablet Take 1 tablet by mouth every afternoon. gabapentin (NEURONTIN) 100 mg capsule TAKE 1 CAP BY MOUTH NIGHTLY NEEDED busPIRone (BUSPAR) 5 mg tablet Take 1 tablet by mouth every 12 hours. MOUNJARO 10 mg/0.5 mL pen injector VRAYLAR 1.5 mg capsule Take 1 capsule by mouth every afternoon. JARDIANCE 25 mg tablet Clobetasol Propionate 0.05 % lotn Apply to affected area two times a day as needed. omeprazole (PRILOSEC) 20 mg capsule Take 1 capsule by mouth every afternoon. FARXIGA 10 mg tablet levothyroxine (SYNTHROID) 25 mcg tablet Take 1 tablet by mouth every afternoon. levocetirizine 5 mg tablet TAKE 1 TABLET BY MOUTH EVERY EVENING NEEDED ALLERGY SYMPTOMS levothyroxine (SYNTHROID) 200 mcg tablet Take 1 tablet by mouth every afternoon. metroNIDAZOLE (FLAGYL) 500 mg tablet Take 500 mg by mouth three times a day. mupirocin (BACTROBAN) 2 % ointment Apply to affected area three times a day. leflunomide (ARAVA) 20 mg tablet Take 20 mg by mouth once daily. hydrOXYchloroQUINE (PLAQUENIL) 200 mg tablet montelukast (SINGULAIR) 10 mg tablet Take 10 mg by mouth daily at bedtime. predniSONE (DELTASONE) 10 mg tablet Take 10 mg by mouth. Only prn lidocaine-prilocaine (EMLA) 2.5-2.5 % cream Apply to affected area as needed. amLODIPine (NORVASC) 2.5 mg tablet No current facility-administered medications for this visit. OBJECTIVE: VS: BP 131/73 (BP Site: Left Arm, BP Position: Sitting, BP Cuff Size: La (more content not included)... [facility] 08-23-2024 Telephone encount er Note The following approved medication requests have been transmitted electronically. Requested Prescriptions Signed Prescriptions Disp Refills DULoxetine (CYMBALTA) 30 mg capsule 30 capsule 0 Sig: Take 1 capsule by mouth once daily. In am Authorizing Provider: TRISTIAN MARTIN DULoxetine (CYMBALTA) 60 mg capsule 30 capsule 0 Sig: Take 1 capsule by mouth daily at bedtime. Authorizing Provider: TRISTIAN MARTIN PA-C [facility] 08-23-2024 Miscellaneous Notes Formattin g of this note is different from the original. The following approved medication requests have been transmitted electronically. Requested Prescriptions Signed Prescriptions Disp Refills DULoxetine (CYMBALTA) 30 mg capsule 30 capsule 0 Sig: Take 1 capsule by mouth once daily. In am Authorizing Provider: TRISTIAN MARTIN DULoxetine (CYMBALTA) 60 mg capsule 30 capsule 0 Sig: Take 1 capsule by mouth daily at bedtime. Authorizing Provider: TRISTIAN MARTIN PA-C Patient phones requesting refills as follows: Requested Prescriptions Pending Prescriptions Disp Refills DULoxetine (CYMBALTA) 30 mg capsule 30 capsule 0 Sig: Take 1 capsule by mouth once daily. In am DULoxetine (CYMBALTA) 60 mg capsule 30 capsule 0 Sig: Take 1 capsule by mouth daily at bedtime. Last UDS: [facility] Urine Drug Screen Summary Report Date Value Ref Range Status 06/05/2024 FINAL Final Comment: == Opiate Class, MS, Ur RFX Oxycodone Class, MS, Ur RFX Gabapentin, MS, Ur RFX ToxAssure Flex 23, Ur == Test Result Flag Units Drug Present Oxycodone 1468 ng/mg creat Oxymorphone 755 ng/mg creat Noroxycodone 3449 ng/mg creat Sources of oxycodone include scheduled prescription medications. Oxymorphone and noroxycodone are expected metabolites of oxycodone. Oxymorphone is also available as a scheduled prescription medication. Gabapentin PRESENT == Test Result Flag Units Ref Range Creatinine 77 mg/dL >=20 == Declared Medications: Medication list was not provided. == For clinical consultation, please call . == [facility] Urine Drug Screen and Benzo Confirm Urine Panel: No results found for: UQCANN, UQBNZL, [id number], UQAMPH, UQMAMP, UQBUPRE, UQNORBUP, UQMTHD, UQEDDP, UQTRAM, UQDTRM, UQFNTL, UQNFTL, UQCODE, UQMORP, UQDCDN, UQHCOD, UQOXYC, UQHMOR, UQOXYM, UQCREA, UQPH, UQSPGR, UQOXID, UQSPQ Last Opioid agreement effective date: 03/08/2024 Recent Visits Date Type Provider Dept 06/05/24 Office Visit Tristian Martin PA-C [facility] 03/08/24 Office Visit Tristian Martin PA-C [facility] Showing recent visits within past 540 days with a meds authorizing provider and meeting all other requirements Future Appointments Date Type Provider Dept 09/04/24 Appointment Tristian Martin PA-C [facility] Showing future appointments within next 150 days with a meds authorizing provider and meeting all other requirements Please review and advise. Becca Dudley RN documented in this encounter [facility] 08-23-2024 Telephone encount er Note Patient phones requesting refills as follows: Requested Prescriptions Pending Prescriptions Disp Refills DULoxetine (CYMBALTA) 30 mg capsule 30 capsule 0 Sig: Take 1 capsule by mouth once daily. In am DULoxetine (CYMBALTA) 60 mg capsule 30 capsule 0 Sig: Take 1 capsule by mouth daily at bedtime. Last UDS: [facility] [employer] [facility] Urine Drug Screen Summary Report Date Value Ref Range Status 06/05/2024 FINAL Final Comment: == Opiate Class, MS, Ur RFX Oxycodone Class, MS, Ur RFX Gabapentin, MS, Ur RFX ToxAssure Flex 23, Ur == Test Result Flag Units Drug Present Oxycodone 1468 ng/mg creat Oxymorphone 755 ng/mg creat Noroxycodone 3449 ng/mg creat Sources of oxycodone include scheduled prescription medications. Oxymorphone and noroxycodone are expected metabolites of oxycodone. Oxymorphone is also available as a scheduled prescription medication. Gabapentin PRESENT == Test Result Flag Units Ref Range Creatinine 77 mg/dL >=20 == Declared Medications: Medication list was not provided. == For clinical consultation, please call . == [facility] Urine Drug Screen and Benzo Confirm Urine Panel: No results found for: UQCANN, UQBNZL, [id number], UQAMPH, UQMAMP, UQBUPRE, UQNORBUP, UQMTHD, UQEDDP, UQTRAM, UQDTRM, UQFNTL, UQNFTL, UQCODE, UQMORP, UQDCDN, UQHCOD, UQOXYC, UQHMOR, UQOXYM, UQCREA, UQPH, UQSPGR, UQOXID, UQSPQ Last Opioid agreement effective date: 03/08/2024 Recent Visits Date Type Provider Dept 06/05/24 Office Visit Tristian Martin PA-C [facility] 03/08/24 Office Visit Tristian Martin PA-C [facility] Showing recent visits within past 540 days with a meds authorizing provider and meeting all other requirements Future Appointments Date Type Provider Dept 09/04/24 Appointment Tristian Martin PA-C [facility] Showing future appointments within next 150 days with a meds authorizing provider and meeting all other requirements Please review and advise. Becca Dudley RN [facility] 08-15-2024 Telephone encount er Note Script sent as requested. [facility] 08-15-2024 Miscellaneous Notes Formattin g of this note might be different from the original. Script sent as requested. Pt lm on refill line for oxycodone 10/325, please advise if you will fill, asked that it go to the same place as the last time Becca Dudley RN August 15, 2024 10:33 AM documented in this encounter [facility] 08-15-2024 Telephone encount er Note Pt lm on refill line for oxycodone 10/325, please advise if you will fill, asked that it go to the same place as the last time Becca Dudley RN August 15, 2024 10:33 AM [facility] 07-23-2024 Telephone encount er Note The following approved medication requests have been transmitted electronically. Requested Prescriptions Signed Prescriptions Disp Refills DULoxetine (CYMBALTA) 60 mg capsule 30 capsule 0 Sig: Take 1 capsule by mouth daily at bedtime. Authorizing Provider: TRISTIAN MARTIN DULoxetine (CYMBALTA) 30 mg capsule 30 capsule 0 Sig: Take 1 capsule by mouth once daily. In am Authorizing Provider: TRISTIAN MARTIN PA-C [facility] 07-23-2024 Miscellaneous Notes Formattin g of this note is different from the original. The following approved medication requests have been transmitted electronically. Requested Prescriptions Signed Prescriptions Disp Refills DULoxetine (CYMBALTA) 60 mg capsule 30 capsule 0 Sig: Take 1 capsule by mouth daily at bedtime. Authorizing Provider: TRISTIAN MARTIN DULoxetine (CYMBALTA) 30 mg capsule 30 capsule 0 Sig: Take 1 capsule by mouth once daily. In am Authorizing Provider: TRISTIAN MARTIN PA-C Patient phones requesting refills as follows: Requested Prescriptions Pending Prescriptions Disp Refills DULoxetine (CYMBALTA) 60 mg capsule 30 capsule 0 Sig: Take 1 capsule by mouth daily at bedtime. DULoxetine (CYMBALTA) 30 mg capsule 30 capsule 0 Sig: Take 1 capsule by mouth once daily. In am Last UDS: [facility] [employer] [facility] Urine Drug Screen Summary Report Date Value Ref Range Status 06/05/2024 FINAL Final Comment: == Opiate Class, MS, Ur RFX Oxycodone Class, MS, Ur RFX Gabapentin, MS, Ur RFX ToxAssure Flex 23, Ur == Test Result Flag Units Drug Present Oxycodone 1468 ng/mg creat Oxymorphone 755 ng/mg creat Noroxycodone 3449 ng/mg creat Sources of oxycodone include scheduled prescription medications. Oxymorphone and noroxycodone are expected metabolites of oxycodone. Oxymorphone is also available as a scheduled prescription medication. Gabapentin PRESENT == Test Result Flag Units Ref Range Creatinine 77 mg/dL >=20 == Declared Medications: Medication list was not provided. == For clinical consultation, please call . == [facility] Urine Drug Screen and Benzo Confirm Urine Panel: No results found for: UQCANN, UQBNZL, [id number], UQAMPH, UQMAMP, UQBUPRE, UQNORBUP, UQMTHD, UQEDDP, UQTRAM, UQDTRM, UQFNTL, UQNFTL, UQCODE, UQMORP, UQDCDN, UQHCOD, UQOXYC, UQHMOR, UQOXYM, UQCREA, UQPH, UQSPGR, UQOXID, UQSPQ Last Opioid agreement effective date: 03/08/2024 Recent Visits Date Type Provider Dept 06/05/24 Office Visit Tristian Martin PA-C [facility] 03/08/24 Office Visit Tristian Martin PA-C [facility] Showing recent visits within past 540 days with a meds authorizing provider and meeting all other requirements Future Appointments Date Type Provider Dept 09/04/24 Appointment Tristian Martin PA-C [facility] Showing future appointments within next 150 days with a meds authorizing provider and meeting all other requirements Please review and advise. Addis Cedillo MA documented in this encounter [facility] 07-23-2024 Telephone encount er Note Patient phones requesting refills as follows: Requested Prescriptions Pending Prescriptions Disp Refills DULoxetine (CYMBALTA) 60 mg capsule 30 capsule 0 Sig: Take 1 capsule by mouth daily at bedtime. DULoxetine (CYMBALTA) 30 mg capsule 30 capsule 0 Sig: Take 1 capsule by mouth once daily. In am Last UDS: [facility] [employer] [facility] Urine Drug Screen Summary Report Date Value Ref Range Status 06/05/2024 FINAL Final Comment: == Opiate Class, MS, Ur RFX Oxycodone Class, MS, Ur RFX Gabapentin, MS, Ur RFX ToxAssure Flex 23, Ur == Test Result Flag Units Drug Present Oxycodone 1468 ng/mg creat Oxymorphone 755 ng/mg creat Noroxycodone 3449 ng/mg creat Sources of oxycodone include scheduled prescription medications. Oxymorphone and noroxycodone are expected metabolites of oxycodone. Oxymorphone is also available as a scheduled prescription medication. Gabapentin PRESENT == Test Result Flag Units Ref Range Creatinine 77 mg/dL >=20 == Declared Medications: Medication list was not provided. == For clinical consultation, please call . == [facility] Urine Drug Screen and Benzo Confirm Urine Panel: No results found for: UQCANN, UQBNZL, HIC1UKW, UQAMPH, UQMAMP, UQBUPRE, UQNORBUP, UQMTHD, UQEDDP, UQTRAM, UQDTRM, UQFNTL, UQNFTL, UQCODE, UQMORP, UQDCDN, UQHCOD, UQOXYC, UQHMOR, UQOXYM, UQCREA, UQPH, UQSPGR, UQOXID, UQSPQ Last Opioid agreement effective date: 03/08/2024 Recent Visits Date Type Provider Dept 06/05/24 Office Visit Tristian Martin PA-C [facility] 03/08/24 Office Visit Tristian Martin PA[facility]C [facility] Showing recent visits within past 540 days with a meds authorizing provider and meeting all other requirements Future Appointments Date Type Provider Dept 09/04/24 Appointment Tristian Martin PA-C [facility] Showing future appointments within next 150 days with a meds authorizing provider and meeting all other requirements Please review and advise. Addis Cedillo MA [facility] 06-19-2024 Telephone encount er Note The following approved medication requests have been transmitted electronically. Requested Prescriptions Signed Prescriptions Disp Refills DULoxetine (CYMBALTA) 30 mg capsule 30 capsule 0 Sig: Take 1 capsule by mouth once daily. In am Authorizing Provider: TRISTIAN MARTIN DULoxetine (CYMBALTA) 60 mg capsule 30 capsule 0 Sig: Take 1 capsule by mouth daily at bedtime. Authorizing Provider: TRISTIAN MARTIN PA-C [facility] 06-19-2024 Miscellaneous Notes Formattin g of this note is different from the original. The following approved medication requests have been transmitted electronically. Requested Prescriptions Signed Prescriptions Disp Refills DULoxetine (CYMBALTA) 30 mg capsule 30 capsule 0 Sig: Take 1 capsule by mouth once daily. In am Authorizing Provider: TRISTIAN MARTIN DULoxetine (CYMBALTA) 60 mg capsule 30 capsule 0 Sig: Take 1 capsule by mouth daily at bedtime. Authorizing Provider: TRISTIAN MARTIN PA-C Patient phones requesting refills as follows: Requested Prescriptions Pending Prescriptions Disp Refills DULoxetine (CYMBALTA) 30 mg capsule 30 capsule 0 Sig: Take 1 capsule by mouth once daily. In am DULoxetine (CYMBALTA) 60 mg capsule 30 capsule 0 Sig: Take 1 capsule by mouth daily at bedtime. Last UDS: [facility] Summary Report Date Value Ref Range Status 06/05/2024 FINAL Final Comment: == Opiate Class, MS, Ur RFX Oxycodone Class, MS, Ur RFX Gabapentin, MS, Ur RFX ToxAssure Flex 23, Ur == Test Result Flag Units Drug Present Oxycodone 1468 ng/mg creat Oxymorphone 755 ng/mg creat Noroxycodone 3449 ng/mg creat Sources of oxycodone include scheduled prescription medications. Oxymorphone and noroxycodone are expected metabolites of oxycodone. Oxymorphone is also available as a scheduled prescription medication. Gabapentin PRESENT == Test Result Flag Units Ref Range Creatinine 77 mg/dL >=20 == Declared Medications: Medication list was not provided. == For clinical consultation, please call . == No results found for: UQNOTE, OPIATEPNMGT, DRUGSCRPAIN Urine Panel: No results found for: UQCANN, UQBNZL, ROE5SVW, UQAMPH, UQMAMP, UQBUPRE, UQNORBUP, UQMTHD, UQEDDP, UQTRAM, UQDTRM, UQFNTL, UQNFTL, UQCODE, UQMORP, UQDCDN, UQHCOD, UQOXYC, UQHMOR, UQOXYM, UQCREA, UQPH, UQSPGR, UQOXID, UQSPQ Lab Results Component Value Date SUMM FINAL 06/05/2024 Summary Report (Summary) Date Value Ref Range [...] . == Last Opioid agreement effective date: 03/08/2024 Please review and advise. Carline Cabrera RN documented in this encounter [facility] 06-19-2024 Telephone encount er Note Patient phones requesting refills as follows: Requested Prescriptions Pending Prescriptions Disp Refills DULoxetine (CYMBALTA) 30 mg capsule 30 capsule 0 Sig: Take 1 capsule by mouth once daily. In am DULoxetine (CYMBALTA) 60 mg capsule 30 capsule 0 Sig: Take 1 capsule by mouth daily at bedtime. Last UDS: [facility] [employer] Summary Report Date Value Ref Range Status 06/05/2024 FINAL Final Comment: == Opiate Class, MS, Ur RFX Oxycodone Class, MS, Ur RFX Gabapentin, MS, Ur RFX ToxAssure Flex 23, Ur == Test Result Flag Units Drug Present Oxycodone 1468 ng/mg creat Oxymorphone 755 ng/mg creat Noroxycodone 3449 ng/mg creat Sources of oxycodone include scheduled prescription medications. Oxymorphone and noroxycodone are expected metabolites of oxycodone. Oxymorphone is also available as a scheduled prescription medication. Gabapentin PRESENT == Test Result Flag Units Ref Range Creatinine 77 mg/dL >=20 == Declared Medications: Medication list was not provided. == For clinical consultation, please call . == No results found for: UQNOTE, OPIATEPNMGT, DRUGSCRPAIN Urine Panel: No results found for: UQCANN, UQBNZL, UHU7FML, UQAMPH, UQMAMP, UQBUPRE, UQNORBUP, UQMTHD, UQEDDP, UQTRAM, UQDTRM, UQFNTL, UQNFTL, UQCODE, UQMORP, UQDCDN, UQHCOD, UQOXYC, UQHMOR, UQOXYM, UQCREA, UQPH, UQSPGR, UQOXID, UQSPQ Lab Results Component Value Date SUMM FINAL 06/05/2024 Summary Report (Summary) Date Value Ref Range [...] . == Last Opioid agreement effective date: 03/08/2024 Please review and advise. Carline Cabrera RN [facility] 06-05-2024 Instructions Tristian Martin PA-C - 06/05/2024 8:35 AM EDT Stop Oxycodone 15 mg three times a day. Trial Percocet 10/325 mg four times a day Refill Cymbalta and Zanaflex. OARRS reviewed. Reviewed opioid agreement with pt and updated in the chart. UDS ordered Discussed treatment for consitpation. Suggest Miralax, SENNA, probiotics and fiber-rich diet to alleviate symptoms Continue with activity as tolerated Uses the SCS with benefit, battery still holds charge Consider Left knee CSI, previously helpful Consider lidocaine infusions Consider neuropathics if able to reduce narcotic use Follow up in 3 months documented in this encounter [facility] 06-05-2024 Note HNO ID: [id number] Author: TRISTIAN MARTIN PA-C Service: ? Author Type: Physician Director [employer] Type: Progress Notes Filed: 06/05/2024 09:05 Note Text: PATIENT: Taryn Self : 1960 DATE OF SERVICE: 06/05/2024 REFERRING PRACTITIONER: Tristian Martin PA-C PRIMARY CARE PROVIDER: Janet Zafar CNP CHIEF COMPLAINT: Patient presents with: Back Pain: Low back Pain: Knees All over HISTORY OF PRESENT ILLNESS: Taryn Self is a 63 year old year old female who presents to the clinic today with chief complaint(s) as above. Following up for: low back pain, leg pain, widespread pain, narcotic use Response to treatment recommendations: Pt is prescribed high does of Oxycodone. She denies side effects but reports frustration due to lack of availability of medication in pharmacies. The medication help reduce pain and increase function Current primary concern/description: low back pain/aching Pain Level: 8 /10 Better with: medication, reposition, rest, SCS Worse with: standing, walking Numbness/Tingling: [x] Yes [] No intermittent, wide spread Bladder/bowel fxn change: [] Yes [x] No --- Review of Systems Constitutional: Negative. HENT: Negative. Eyes: Negative. Cardiovascular: Positive for leg swelling. Respiratory: Negative. Endocrine: Negative. Skin: Negative. Musculoskeletal: Positive for arthritis, back pain, joint pain, myalgias and neck pain. Gastrointestinal: Positive for constipation. Genitourinary: Negative. Neurological: Positive for paresthesias. Psychiatric/Behavioral: Negative. 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 DULoxetine (CYMBALTA) 30 mg capsule Take 1 capsule by mouth once daily. In am oxyCODONE (ROXICODONE) 15 mg immediate release tablet Take 1 tablet by mouth every 8 hours as needed for pain for up to 30 days. semaglutide 0.25 mg/0.5 mL (0.5 mg/mL) subcutaneous compounded injection Inject subcutaneously one time a week. metFORMIN (GLUCOPHAGE) 1,000 mg tablet lisinopril-hydroCHLOROthiazide (ZESTORETIC) 10-12.5 mg per tablet Take 1 tablet by mouth every afternoon. gabapentin (NEURONTIN) 100 mg capsule TAKE 1 CAP BY MOUTH NIGHTLY NEEDED busPIRone (BUSPAR) 5 mg tablet Take 1 tablet by mouth every 12 hours. MOUNJARO 10 mg/0.5 mL pen injector VRAYLAR 1.5 mg capsule Take 1 capsule by mouth every afternoon. JARDIANCE 25 mg tablet Clobetasol Propionate 0.05 % lotn Apply to affected area two times a day as needed. omeprazole (PRILOSEC) 20 mg capsule Take 1 capsule by mouth every afternoon. FARXIGA 10 mg tablet levothyroxine (SYNTHROID) 25 mcg tablet Take 1 tablet by mouth every afternoon. levocetirizine 5 mg tablet TAKE 1 TABLET BY MOUTH EVERY EVENING NEEDED ALLERGY SYMPTOMS levothyroxine (SYNTHROID) 200 mcg tablet Take 1 tablet by mouth every afternoon. metroNIDAZOLE (FLAGYL) 500 mg tablet Take 500 mg by mouth three times a day. mupirocin (BACTROBAN) 2 % ointment Apply to affected area three times a day. leflunomide (ARAVA) 20 mg tablet Take 20 mg by mouth once daily. hydrOXYchloroQUINE (PLAQUENIL) 200 mg tablet montelukast (SINGULAIR) 10 mg tablet Take 10 mg by mouth daily at bedtime. predniSONE (DELTASONE) 10 mg tablet Take 10 mg by mouth. Only prn amLODIPine (NORVASC) 2.5 mg tablet lidocaine-prilocaine (EMLA) 2.5-2.5 % cream Apply to affected area as needed. No current facility-administered medications for this visit. OBJECTIVE: VS: BP 134/73 (BP Site: Left Arm, BP Position: Sitting, BP Cuff Size: Large Adult) Pulse (!) 59 Resp 20 Ht 162.6 cm (5' 4) W (more content not included)... [facility] 06-05-2024 History of Presen t illness Narrative PATIENT: Taryn Self : 1960 DATE OF SERVICE: 06/05/2024 REFERRING PRACTITIONER: Tristian Martin PA-C PRIMARY CARE PROVIDER: Janet Zafar CNP CHIEF COMPLAINT: Patient presents with: Back Pain: Low back Pain: Knees All over HISTORY OF PRESENT ILLNESS: Taryn Self is a 63 year old year old female who presents to the clinic today with chief complaint(s) as above. Following up for: low back pain, leg pain, widespread pain, narcotic use Response to treatment recommendations: Pt is prescribed high does of Oxycodone. She denies side effects but reports frustration due to lack of availability of medication in pharmacies. The medication help reduce pain and increase function Current primary concern/description: low back pain/aching Pain Level: 8 /10 Better with: medication, reposition, rest, SCS Worse with: standing, walking Numbness/Tingling: [x] Yes [] No intermittent, wide spread Bladder/bowel fxn change: [] Yes [x] No --- Review of Systems Constitutional: Negative. HENT: Negative. Eyes: Negative. Cardiovascular: Positive for leg swelling. Respiratory: Negative. Endocrine: Negative. Skin: Negative. Musculoskeletal: Positive for arthritis, back pain, joint pain, myalgias and neck pain. Gastrointestinal: Positive for constipation. Genitourinary: Negative. Neurological: Positive for paresthesias. Psychiatric/Behavioral: Negative. 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 DULoxetine (CYMBALTA) 30 mg capsule Take 1 capsule by mouth once daily. In am oxyCODONE (ROXICODONE) 15 mg immediate release tablet Take 1 tablet by mouth every 8 hours as needed for pain for up to 30 days. semaglutide 0.25 mg/0.5 mL (0.5 mg/mL) subcutaneous compounded injection Inject subcutaneously one time a week. metFORMIN (GLUCOPHAGE) 1,000 mg tablet lisinopril-hydroCHLOROthiazide (ZESTORETIC) 10-12.5 mg per tablet Take 1 tablet by mouth every afternoon. gabapentin (NEURONTIN) 100 mg capsule TAKE 1 CAP BY MOUTH NIGHTLY NEEDED busPIRone (BUSPAR) 5 mg tablet Take 1 tablet by mouth every 12 hours. MOUNJARO 10 mg/0.5 mL pen injector VRAYLAR 1.5 mg capsule Take 1 capsule by mouth every afternoon. JARDIANCE 25 mg tablet Clobetasol Propionate 0.05 % lotn Apply to affected area two times a day as needed. omeprazole (PRILOSEC) 20 mg capsule Take 1 capsule by mouth every afternoon. FARXIGA 10 mg tablet levothyroxine (SYNTHROID) 25 mcg tablet Take 1 tablet by mouth every afternoon. levocetirizine 5 mg tablet TAKE 1 TABLET BY MOUTH EVERY EVENING NEEDED ALLERGY SYMPTOMS levothyroxine (SYNTHROID) 200 mcg tablet Take 1 tablet by mouth every afternoon. metroNIDAZOLE (FLAGYL) 500 mg tablet Take 500 mg by mouth three times a day. mupirocin (BACTROBAN) 2 % ointment Apply to affected area three times a day. leflunomide (ARAVA) 20 mg tablet Take 20 mg by mouth once daily. hydrOXYchloroQUINE (PLAQUENIL) 200 mg tablet montelukast (SINGULAIR) 10 mg tablet Take 10 mg by mouth daily at bedtime. predniSONE (DELTASONE) 10 mg tablet Take 10 mg by mouth. Only prn amLODIPine (NORVASC) 2.5 mg tablet lidocaine-prilocaine (EMLA) 2.5-2.5 % cream Apply to affected area as needed. No current facility-administered medications for this visit. OBJECTIVE: VS: BP 134/73 (BP Site: Left Arm, BP Position: Sitting, BP Cuff Size: Large Adult) Pulse (!) 59 Resp 20 Ht 162.6 cm (5' 4) Wt (!) 139.1 kg (306 lb 10.6 oz) SpO2 100% BMI 52.64 kg/m Body mass index is 52.64 kg/m . PHYSICAL EXAMINATION: Physical Exam Constitutional: Appearance: Normal appearance. HENT: Head: Normocephalic and atraumatic. Cardiovascular: Rate and Rhythm: Normal rate. Pulmonary: Effort: Pulmonary effort is normal. Abdominal: General: There is no distension. Palpations: Abdomen is soft. Tenderness: There is no abdominal tenderness. Musculoskeletal: General: TTP medial aspect of left knee. Normal range of motion of knees and hips. Lumbar: midline tenderness, pain with facet palpation, neg SLR Right lower le+ edema. Left lower le+ edema. Skin: General: Skin is warm. Capillary Refill: Capillary refill takes less than 2 seconds. Neurological: Mental Status: pt is alert and oriented to person, place, and time. Mental status is at baseline. Sensory: No sensory deficit. Motor: No weakness. Gait: Gait normal. Psychiatric: Mood and Affect: Mood normal. Diagnostic Imaging: MRI THORACIC SPINE WITHOUT CONTRAST IMPRESSION: 1. Mild degree multilevel degenerative changes listed above. 2. No spinal cord pathology. 3. No evidence of soft disc herniation or cord compression. XR KNEE RIGHT(2022) 4 views demonstrate mild spurring at the tibial spines and lateral tibial plateau. Otherwise there is unremarkable appearance of the bone. There is calcification of the extensor mechanism. IMPRESSION: Mild degenerative change. Other Diagnostic Studies: The OARRS report has been reviewed and is consistent with the patients medical history and medication intake. Last Urine Drug Screen (UDS): 11/2023. The UDS has been reviewed and is consistent with medications prescribed. 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 Previously, pain would radiate to both legs but this improved with the SCS. Left knee pain Multiple joint pain Chronically managed with narcotics. She denies side effects to the Oxycodone. She is reliant to the medication for maintenance of function. She denies side effects, other than constipation. PLAN: Treatment goals were discussed in detail with the patient. These goals include reduction of pain levels, improve the levels of functioning, avoidance of medication side effects and lowest the medication dose possible to achieve these goals. The patient was in full agreement with these goals. Also discussed is the understanding that pain may not be eliminated by medication but that the goal of better sustaining life through use of medication is appropriate Risks and side effects of chronic opioid therapy including but not limited to tolerance, dependence, constipation, hyperalgesia, cognitive side effects, addiction and possible due to overuse and or misuse of opioids were discussed. I also discussed that such medications when coadministered with other sedating agents including but not limited to alcohol, benzodiazepines, sedative hypnotics and illegal drugs such as marijuana could pose life threatening consequences including -Recommend: Stop Oxycodone 15 mg three times a day. Trial Percocet 10/325 mg four times a day Refill Cymbalta and Zanaflex. OARRS reviewed. Reviewed opioid agreement with pt and updated in the chart. UDS ordered Discussed treatment for consitpation. Suggest Miralax, SENNA, probiotics and fiber-rich diet to alleviate symptoms Continue with activity as tolerated Uses the SCS with benefit, battery still holds charge Consider Left knee CSI, previously helpful Consider lidocaine infusions Consider neuropathics if able to reduce narcotic use Follow up in 3 months The risks, benefits, alternative treatment options and prognosis were discussed and all of patient's questions/concerns were addressed. Follow-up: 3 months May certainly follow up sooner if needed. This note was produced using voice recognition software and therefore may contain typos. Please contact the author with any questions or concerns. Author: Tristian Martin PA-C 06/05/2024 8:30 AM Low back - pain goes into legs, right sometimes. documented in this encounter [facility] 06-05-2024 Note HNO ID: [id number] Author: ROSIE GARCÍA LPN Service: ? Author Type: LICENSED NURSE Type: Progress Notes Filed: 06/05/2024 09:03 Note Text: Low back - pain goes into legs, right sometimes. [facility] 05-29-2024 Telephone encount er Note The following approved medication requests have been transmitted electronically. Requested Prescriptions Signed Prescriptions Disp Refills DULoxetine (CYMBALTA) 60 mg capsule 30 capsule 0 Sig: Take 1 capsule by mouth daily at bedtime. Authorizing Provider: TRISTIAN MARTIN PA-C [facility] 05-29-2024 Miscellaneous Notes Formattin g of this note is different from the original. The following approved medication requests have been transmitted electronically. Requested Prescriptions Signed Prescriptions Disp Refills DULoxetine (CYMBALTA) 60 mg capsule 30 capsule 0 Sig: Take 1 capsule by mouth daily at bedtime. Authorizing Provider: TRISTIAN MARTIN PA-C Patient phones requesting refills as follows: Requested Prescriptions Pending Prescriptions Disp Refills DULoxetine (CYMBALTA) 60 mg capsule 30 capsule 0 Sig: Take 1 capsule by mouth daily at bedtime. Please review and advise. Sho Gates RN documented in this encounter [facility] 05-29-2024 Telephone encount er Note Patient phones requesting refills as follows: Requested Prescriptions Pending Prescriptions Disp Refills DULoxetine (CYMBALTA) 60 mg capsule 30 capsule 0 Sig: Take 1 capsule by mouth daily at bedtime. Please review and advise. Sho Gates RN [facility] 05-23-2024 Telephone encount er Note Patient phones requesting refills as follows: Requested Prescriptions Pending Prescriptions Disp Refills DULoxetine (CYMBALTA) 30 mg capsule 30 capsule 0 Sig: Take 1 capsule by mouth once daily. In am Please review and advise. Sho Gates RN [facility] 05-23-2024 Miscellaneous Notes Formattin g of this note is different from the original. Patient phones requesting refills as follows: Requested Prescriptions Pending Prescriptions Disp Refills DULoxetine (CYMBALTA) 30 mg capsule 30 capsule 0 Sig: Take 1 capsule by mouth once daily. In am Please review and advise. Sho Gates RN documented in this encounter [facility] 05-10-2024 Telephone encount er Note The following approved medication requests have been transmitted electronically. Requested Prescriptions Signed Prescriptions Disp Refills oxyCODONE (ROXICODONE) 15 mg immediate release tablet 90 tablet 0 Sig: Take 1 tablet by mouth every 8 hours as needed for pain for up to 30 days. Authorizing Provider: TRISTIAN MARTIN PA-C [facility] 05-10-2024 Miscellaneous Notes Formattin g of this note is different from the original. The following approved medication requests have been transmitted electronically. Requested Prescriptions Signed Prescriptions Disp Refills oxyCODONE (ROXICODONE) 15 mg immediate release tablet 90 tablet 0 Sig: Take 1 tablet by mouth every 8 hours as needed for pain for up to 30 days. Authorizing Provider: TRISTIAN MARTIN PA-C Patient phones requesting refills as follows: Requested Prescriptions Pending Prescriptions Disp Refills oxyCODONE (ROXICODONE) 15 mg immediate release tablet 90 tablet 0 Sig: Take 1 tablet by mouth every 8 hours as needed for pain for up to 30 days. Last UDS: [facility] Summary Report Date Value Ref Range Status 12/07/2023 FINAL Final Comment: == Opiate Class, MS, Ur RFX Oxycodone Class, MS, Ur RFX Gabapentin, MS, Ur RFX ToxAssure Flex 23, Ur == Test Result Flag Units Drug Present Oxycodone 2747 ng/mg creat Oxymorphone 651 ng/mg creat Noroxycodone 3735 ng/mg creat Noroxymorphone 66 ng/mg creat Sources of oxycodone are scheduled prescription medications. Oxymorphone, noroxycodone, and noroxymorphone are expected metabolites of oxycodone. Oxymorphone is also available as a scheduled prescription medication. Gabapentin PRESENT == Test Result Flag Units Ref Range Creatinine 79 mg/dL >=20 == Declared Medications: Medication list was not provided. == For clinical consultation, please call . == No results found for: UQNOTE, OPIATEPNMGT, DRUGSCRPAIN Urine Panel: No results found for: UQCANN, UQBNZL, RXT6DCW, UQAMPH, UQMAMP, UQBUPRE, UQNORBUP, UQMTHD, UQEDDP, UQTRAM, UQDTRM, UQFNTL, UQNFTL, UQCODE, UQMORP, UQDCDN, UQHCOD, UQOXYC, UQHMOR, UQOXYM, UQCREA, UQPH, UQSPGR, UQOXID, UQSPQ Lab Results Component Value Date SUMM FINAL 12/07/2023 Summary Report (Summary) Date Value Ref Range [...] . == Last Opioid agreement effective date: 03/08/2024 Please review and advise. Becca Dudley RN documented in this encounter [facility] 05-09-2024 Telephone encount er Note Patient phones requesting refills as follows: Requested Prescriptions Pending Prescriptions Disp Refills oxyCODONE (ROXICODONE) 15 mg immediate release tablet 90 tablet 0 Sig: Take 1 tablet by mouth every 8 hours as needed for pain for up to 30 days. Last UDS: [facility] Summary Report Date Value Ref Range Status 12/07/2023 FINAL Final Comment: == Opiate Class, MS, Ur RFX Oxycodone Class, MS, Ur RFX Gabapentin, MS, Ur RFX ToxAssure Flex 23, Ur == Test Result Flag Units Drug Present Oxycodone 2747 ng/mg creat Oxymorphone 651 ng/mg creat Noroxycodone 3735 ng/mg creat Noroxymorphone 66 ng/mg creat Sources of oxycodone are scheduled prescription medications. Oxymorphone, noroxycodone, and noroxymorphone are expected metabolites of oxycodone. Oxymorphone is also available as a scheduled prescription medication. Gabapentin PRESENT == Test Result Flag Units Ref Range Creatinine 79 mg/dL >=20 == Declared Medications: Medication list was not provided. == For clinical consultation, please call . == No results found for: UQNOTE, OPIATEPNMGT, DRUGSCRPAIN Urine Panel: No results found for: UQCANN, UQBNZL, [id number], UQAMPH, UQMAMP, UQBUPRE, UQNORBUP, UQMTHD, UQEDDP, UQTRAM, UQDTRM, UQFNTL, UQNFTL, UQCODE, UQMORP, UQDCDN, UQHCOD, UQOXYC, UQHMOR, UQOXYM, UQCREA, UQPH, UQSPGR, UQOXID, UQSPQ Lab Results Component Value Date SUMM FINAL 12/07/2023 Summary Report (Summary) Date Value Ref Range [...] . == Last Opioid agreement effective date: 03/08/2024 Please review and advise. Becca Dudley RN [facility] 04-23-2024 Telephone encount er Note The following approved medication requests have been transmitted electronically. Requested Prescriptions Signed Prescriptions Disp Refills DULoxetine (CYMBALTA) 60 mg capsule 30 capsule 0 Sig: Take 1 capsule by mouth daily at bedtime. Authorizing Provider: TRISTIAN MARTIN DULoxetine (CYMBALTA) 30 mg capsule 30 capsule 0 Sig: Take 1 capsule by mouth once daily. In am Authorizing Provider: TRISTIAN MARTIN PA-C [facility] 04-23-2024 Miscellaneous Notes Formattin g of this note is different from the original. The following approved medication requests have been transmitted electronically. Requested Prescriptions Signed Prescriptions Disp Refills DULoxetine (CYMBALTA) 60 mg capsule 30 capsule 0 Sig: Take 1 capsule by mouth daily at bedtime. Authorizing Provider: TRISTIAN MARTIN DULoxetine (CYMBALTA) 30 mg capsule 30 capsule 0 Sig: Take 1 capsule by mouth once daily. In am Authorizing Provider: TRISTIAN MARTIN PA-C Patient phones requesting refills as follows: Requested Prescriptions Pending Prescriptions Disp Refills DULoxetine (CYMBALTA) 60 mg capsule 30 capsule 0 Sig: Take 1 capsule by mouth daily at bedtime. DULoxetine (CYMBALTA) 30 mg capsule 30 capsule 0 Sig: Take 1 capsule by mouth once daily. In am Last UDS: [facility] - [facility] Summary Report Date Value Ref Range Status 12/07/2023 FINAL Final Comment: == Opiate Class, MS, Ur RFX Oxycodone Class, MS, Ur RFX Gabapentin, MS, Ur RFX ToxAssure Flex 23, Ur == Test Result Flag Units Drug Present Oxycodone 2747 ng/mg creat Oxymorphone 651 ng/mg creat Noroxycodone 3735 ng/mg creat Noroxymorphone 66 ng/mg creat Sources of oxycodone are scheduled prescription medications. Oxymorphone, noroxycodone, and noroxymorphone are expected metabolites of oxycodone. Oxymorphone is also available as a scheduled prescription medication. Gabapentin PRESENT == Test Result Flag Units Ref Range Creatinine 79 mg/dL >=20 == Declared Medications: Medication list was not provided. == For clinical consultation, please call . == No results found for: UQNOTE, OPIATEPNMGT, DRUGSCRPAIN Urine Panel: No results found for: UQCANN, UQBNZL, [id number], UQAMPH, UQMAMP, UQBUPRE, UQNORBUP, UQMTHD, UQEDDP, UQTRAM, UQDTRM, UQFNTL, UQNFTL, UQCODE, UQMORP, UQDCDN, UQHCOD, UQOXYC, UQHMOR, UQOXYM, UQCREA, UQPH, UQSPGR, UQOXID, UQSPQ Lab Results Component Value Date SUMM FINAL 12/07/2023 Summary Report (Summary) Date Value Ref Range [...] . == Last Opioid agreement effective date: 03/08/2024 Please review and advise. Carline Cabrera RN documented in this encounter [facility] 04-23-2024 Telephone encount er Note Patient phones requesting refills as follows: Requested Prescriptions Pending Prescriptions Disp Refills DULoxetine (CYMBALTA) 60 mg capsule 30 capsule 0 Sig: Take 1 capsule by mouth daily at bedtime. DULoxetine (CYMBALTA) 30 mg capsule 30 capsule 0 Sig: Take 1 capsule by mouth once daily. In am Last UDS: [facility] [employer] Summary Report Date Value Ref Range Status 12/07/2023 FINAL Final Comment: == Opiate Class, MS, Ur RFX Oxycodone Class, MS, Ur RFX Gabapentin, MS, Ur RFX ToxAssure Flex 23, Ur == Test Result Flag Units Drug Present Oxycodone 2747 ng/mg creat Oxymorphone 651 ng/mg creat Noroxycodone 3735 ng/mg creat Noroxymorphone 66 ng/mg creat Sources of oxycodone are scheduled prescription medications. Oxymorphone, noroxycodone, and noroxymorphone are expected metabolites of oxycodone. Oxymorphone is also available as a scheduled prescription medication. Gabapentin PRESENT == Test Result Flag Units Ref Range Creatinine 79 mg/dL >=20 == Declared Medications: Medication list was not provided. == For clinical consultation, please call . == No results found for: UQNOTE, OPIATEPNMGT, DRUGSCRPAIN Urine Panel: No results found for: UQCANN, UQBNZL, DFQ7QGS, UQAMPH, UQMAMP, UQBUPRE, UQNORBUP, UQMTHD, UQEDDP, UQTRAM, UQDTRM, UQFNTL, UQNFTL, UQCODE, UQMORP, UQDCDN, UQHCOD, UQOXYC, UQHMOR, UQOXYM, UQCREA, UQPH, UQSPGR, UQOXID, UQSPQ Lab Results Component Value Date SUMM FINAL 12/07/2023 Summary Report (Summary) Date Value Ref Range [...] . == Last Opioid agreement effective date: 03/08/2024 Please review and advise. Carline Cabrera RN [facility] 04-10-2024 Telephone encount er Note The following approved medication requests have been transmitted electronically. Requested Prescriptions Signed Prescriptions Disp Refills oxyCODONE (ROXICODONE) 15 mg immediate release tablet 90 tablet 0 Sig: Take 1 tablet by mouth every 8 hours as needed for pain for up to 30 days. Authorizing Provider: TRISTIAN MARTIN PA-C [facility] 04-10-2024 Miscellaneous Notes Formattin g of this note is different from the original. The following approved medication requests have been transmitted electronically. Requested Prescriptions Signed Prescriptions Disp Refills oxyCODONE (ROXICODONE) 15 mg immediate release tablet 90 tablet 0 Sig: Take 1 tablet by mouth every 8 hours as needed for pain for up to 30 days. Authorizing Provider: TRISTIAN MARTIN PA-C Pt has been unable to get her oxycodone filled. She has been out since Tuesday. Pt asking for RX to go to [facility]. New RX attached with new Pharmacy. Sho Gates RN April 10, 2024 10:25 AM documented in this encounter [facility] 04-10-2024 Telephone encount er Note Pt has been unable to get her oxycodone filled. She has been out since Tuesday. Pt asking for RX to go to [facility]. New RX attached with new Pharmacy. Sho Gates RN April 10, 2024 10:25 AM [facility] 04-05-2024 Telephone encount er Note The following approved medication requests have been transmitted electronically. Requested Prescriptions Signed Prescriptions Disp Refills oxyCODONE (ROXICODONE) 15 mg immediate release tablet 90 tablet 0 Sig: Take 1 tablet by mouth every 8 hours as needed for pain for up to 30 days. Patient should start on April 08, 2024. Authorizing Provider: TRISTIAN MARTIN PA-C [facility] 04-05-2024 Miscellaneous Notes Formattin g of this note is different from the original. The following approved medication requests have been transmitted electronically. Requested Prescriptions Signed Prescriptions Disp Refills oxyCODONE (ROXICODONE) 15 mg immediate release tablet 90 tablet 0 Sig: Take 1 tablet by mouth every 8 hours as needed for pain for up to 30 days. Patient should start on April 08, 2024. Authorizing Provider: TRISTIAN MARTIN PA-C Patient phones requesting refills as follows: Requested Prescriptions Pending Prescriptions Disp Refills oxyCODONE (ROXICODONE) 15 mg immediate release tablet 70 tablet 0 Sig: Take 1 tablet by mouth three times a day as needed for pain for up to 23 days. To complete the full script of 90 tablets/month Last UDS[facility] Summary Report Date Value Ref Range Status 12/07/2023 FINAL Final Comment: == Opiate Class, MS, Ur RFX Oxycodone Class, MS, Ur RFX Gabapentin, MS, Ur RFX ToxAssure Flex 23, Ur == Test Result Flag Units Drug Present Oxycodone 2747 ng/mg creat Oxymorphone 651 ng/mg creat Noroxycodone 3735 ng/mg creat Noroxymorphone 66 ng/mg creat Sources of oxycodone are scheduled prescription medications. Oxymorphone, noroxycodone, and noroxymorphone are expected metabolites of oxycodone. Oxymorphone is also available as a scheduled prescription medication. Gabapentin PRESENT == Test Result Flag Units Ref Range Creatinine 79 mg/dL >=20 == Declared Medications: Medication list was not provided. == For clinical consultation, please call . == No results found for: UQNOTE, OPIATEPNMGT, DRUGSCRPAIN Urine Panel: No results found for: UQCANN, UQBNZL, [id number], UQAMPH, UQMAMP, UQBUPRE, UQNORBUP, UQMTHD, UQEDDP, UQTRAM, UQDTRM, UQFNTL, UQNFTL, UQCODE, UQMORP, UQDCDN, UQHCOD, UQOXYC, UQHMOR, UQOXYM, UQCREA, UQPH, UQSPGR, UQOXID, UQSPQ Lab Results Component Value Date SUMM FINAL 12/07/2023 Summary Report (Summary) Date Value Ref Range [...] . == Last Opioid agreement effective date: 03/08/2024 Please review and advise. Becca Dudley RN documented in this encounter [facility] 04-04-2024 Telephone encount er Note Patient phones requesting refills as follows: Requested Prescriptions Pending Prescriptions Disp Refills oxyCODONE (ROXICODONE) 15 mg immediate release tablet 70 tablet 0 Sig: Take 1 tablet by mouth three times a day as needed for pain for up to 23 days. To complete the full script of 90 tablets/month Last UDS: [facility] - [facility] Summary Report Date Value Ref Range Status 12/07/2023 FINAL Final Comment: == Opiate Class, MS, Ur RFX Oxycodone Class, MS, Ur RFX Gabapentin, MS, Ur RFX ToxAssure Flex 23, Ur == Test Result Flag Units Drug Present Oxycodone 2747 ng/mg creat Oxymorphone 651 ng/mg creat Noroxycodone 3735 ng/mg creat Noroxymorphone 66 ng/mg creat Sources of oxycodone are scheduled prescription medications. Oxymorphone, noroxycodone, and noroxymorphone are expected metabolites of oxycodone. Oxymorphone is also available as a scheduled prescription medication. Gabapentin PRESENT == Test Result Flag Units Ref Range Creatinine 79 mg/dL >=20 == Declared Medications: Medication list was not provided. == For clinical consultation, please call . == No results found for: UQNOTE, OPIATEPNMGT, DRUGSCRPAIN Urine Panel: No results found for: UQCANN, UQBNZL, [id number], UQAMPH, UQMAMP, UQBUPRE, UQNORBUP, UQMTHD, UQEDDP, UQTRAM, UQDTRM, UQFNTL, UQNFTL, UQCODE, UQMORP, UQDCDN, UQHCOD, UQOXYC, UQHMOR, UQOXYM, UQCREA, UQPH, UQSPGR, UQOXID, UQSPQ Lab Results Component Value Date SUMM FINAL 12/07/2023 Summary Report (Summary) Date Value Ref Range [...] . == Last Opioid agreement effective date: 03/08/2024 Please review and advise. Becca Dudley RN [facility] 04-02-2024 Evaluation note Diagnosis Onset Date Resolution Hidradenitis suppurativa acute April 02, 2024 9:16am Super-super obese chronic Februar 2024 9:16am Encounter for routine gynecological examination noneactive April 02 025 9:16am [facility] Work Phone: 1(494) 329-916801-21-2025 Telephone encounter Note* Telephone Encounter - Tristian Martin PA-C - 03/13/2024 2:09 PM EST The following approved medication requests have been transmitted electronically. Requested Prescriptions Signed Prescriptions Disp Refills oxyCODONE (ROXICODONE) 15 mg immediate release tablet 70 tablet 0 Sig: Take 1 tablet by mouth three times a day as needed for pain for up to 23 days. To complete thefull script of 90 tablets/month Authorizing Provider: TRISTIAN MARTIN PA-C [facility]01-21-2025 Miscellaneous Notes* Telephone Encounter - Tristian Martin PA-C - 03/13/2024 2:09 PM EST The following approved medication requests have been transmitted electronically. Requested Prescriptions Signed Prescriptions Disp Refills oxyCODONE (ROXICODONE) 15 mg immediate release tablet 70 tablet 0 Sig: Take 1 tablet by mouth three times a day as needed for pain for up to 23 days. To complete thefull script of 90 tablets/month Authorizing Provider: TRISTIAN MARTIN PA-C * Telephone Encounter - Carline Cabrera RN - 03/13/2024 1:54 PM EST Pt called in today stating that she had a partial fill of 20 tablets of the Oxycodone filled on 03/09. Pharmacy is requesting a new script be sent. Please advise. Carline Cabrera RN March 13, 2024 1:55 PM [facility] Tele[facility] encounter Note * Telephone Encounter - Carline Cabrera RN - 03/13/2024 1:54 PM EST Pt called in today stating that she had a partial fill of 20 tablets of the Oxycodone filled on 03/09. Pharmacy is requesting a new script be sent. Please advise. Carline Cabrera RN March 13, 2024 1:55 PM [facility]01-16-2025 Instructions* Patient Instructions* Tristian Martin PA-C - 03/08/2024 10:55 AM EST Refill Oxycodone , Cymbalta and Zanaflex. Medications are taken as prescribed without side effects OARRS reviewed. Reviewed opioid agreement with pt and updated in the chart Discussed treatment for consitpation. Suggest Miralax, SENNA, probiotics and fiber-rich diet to alleviate symptoms Continue with activity as tolerated Uses the SCS with benefit, battery still holds charge Consider Left knee CSI, previously helpful Follow up in 3 months [facility] NoteHNO ID: [id number] Author: TRISTIAN MARTIN PA-C Service: ? Author Type: Physician Director [employer] Type: Progress Notes Filed: 03/08/2024 10:59 Note Text: PATIENT: Taryn Self : 1960 DATE OF SERVICE: 03/08/2024 REFERRING PRACTITIONER: Jay Esparza MD PRIMARY CARE PROVIDER: Janet Zafar CNP CHIEF COMPLAINT: Patient presents with: Back Pain: Low Pain: Beto knees HISTORY OF PRESENT ILLNESS: Taryn Self is a 63 year old year old female who presents to the clinic today with chief complaint(s) as above. Following up for: low back pain, leg pain, chronic pain, narcotic use Response to treatment recommendations: Medications are helpful. She denies side effects Current primary concern/description: lower back pain/aching Pain Level: 8 /10 Better with: medication, reposition, rest Worse with: standing, walking Numbness/Tingling: [] Yes [x] No Bladder/bowel fxn change: [] Yes [x] No --- Review of Systems HENT: Negative. Eyes: Negative. Cardiovascular: Positive for leg swelling. Respiratory: Negative. Endocrine: Negative. Skin: Negative. Musculoskeletal: Positive for arthritis, back pain, joint pain, myalgias and stiffness. Gastrointestinal: Positive for constipation. Genitourinary: Negative. Neurological: Negative. Psychiatric/Behavioral: The patient has insomnia. 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 In am DULoxetine (CYMBALTA) 60 mg capsule Take 1 capsule by mouth daily at bedtime. oxyCODONE (ROXICODONE) 15 mg immediate release tablet Take 1 tablet by mouth three times a day as needed for pain for up to 30 days. semaglutide 0.25 mg/0.5 mL (0.5 mg/mL) subcutaneous compounded injection Inject subcutaneously one time a week. metFORMIN (GLUCOPHAGE) 1,000 mg tablet lisinopril-hydroCHLOROthiazide (ZESTORETIC) 10-12.5 mg per tablet Take 1 tablet by mouth every afternoon. gabapentin (NEURONTIN) 100 mg capsule TAKE 1 CAP BY MOUTH NIGHTLY NEEDED busPIRone (BUSPAR) 5 mg tablet Take 1 tablet by mouth every 12 hours. MOUNJARO 10 mg/0.5 mL pen injector inject 10 mg weekly sq VRAYLAR 1.5 mg capsule Take 1 capsule by mouth every afternoon. JARDIANCE 25 mg tablet Clobetasol Propionate 0.05 % lotn Apply to affected area two times a day as needed. omeprazole (PRILOSEC) 20 mg capsule Take 1 capsule by mouth every afternoon. FARXIGA 10 mg tablet levothyroxine (SYNTHROID) 25 mcg tablet Take 1 tablet by mouth every afternoon. levocetirizine 5 mg tablet TAKE 1 TABLET BY MOUTH EVERY EVENING NEEDED ALLERGY SYMPTOMS levothyroxine (SYNTHROID) 200 mcg tablet Take 1 tablet by mouth every afternoon. metroNIDAZOLE (FLAGYL) 500 mg tablet Take 500 mg by mouth three times daily. mupirocin (BACTROBAN) 2 % ointment Apply to affected area three times daily. leflunomide (ARAVA) 20 mg tablet Take 20 mg by mouth once daily. hydrOXYchloroQUINE (PLAQUENIL) 200 mg tablet montelukast (SINGULAIR) 10 mg tablet Take 10 mg by mouth daily at bedtime. predniSONE (DELTASONE) 10 mg tablet Take 10 mg by mouth. lidocaine-prilocaine (EMLA) 2.5-2.5 % cream Apply to affected area as needed. amLODIPine (NORVASC) 2.5 mg tablet No current facility-administered medications for this visit. OBJECTIVE: VS: BP 132/83 (BP Site: Right Arm, BP Position: Sitting, BP Cuff Size: Large Adult) Pulse 65 Resp 16 Ht 162.6 cm (5' 4) Wt (!) 143.4 kg (316 lb 2.2 oz) SpO2 97% BMI 54.27 kg/m? Body mass index is 54.27 kg/m?. PHYSICAL EXAMINATION: Physical Exam Constitutional: Appearance: Normal appearance. HENT: Head: Normoc (more content not included)...[facility]01-16-2025 History of Present illness Narrative* Tristian Martin PA-C - 03/08/2024 10:12 AM EST PATIENT: Taryn Self : 1960 DATE OF SERVICE: 03/08/2024 REFERRING PRACTITIONER: Jay Esparza MD PRIMARY CARE PROVIDER: Flavio Ciesa, TAL[employer] MANAGEMENT SPECIALIST CHIEF COMPLAINT: Patient presents with: Back Pain: Low Pain: Beto knees HISTORY OF PRESENT ILLNESS: Taryn Self is a 63 year old year old female who presents to the clinic today with chief complaint(s) as above. Following up for: low back pain, leg pain, chronic pain, narcotic use Response to treatment recommendations: Medications are helpful. She denies side effects Current primary concern/description: lower back pain/aching Pain Level: 8 /10 Better with: medication, reposition, rest Worse with: standing, walking Numbness/Tingling: [] Yes [x] No Bladder/bowel fxn change: [] Yes [x] No --- Review of Systems HENT: Negative. Eyes: Negative. Cardiovascular: Positive for leg swelling. Respiratory: Negative. Endocrine: Negative. Skin: Negative. Musculoskeletal: Positive for arthritis, back pain, joint pain, myalgias and stiffness. Gastrointestinal: Positive for constipation. Genitourinary: Negative. Neurological: Negative. Psychiatric/Behavioral: The patient has insomnia. 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 In am DULoxetine (CYMBALTA) 60 mg capsule Take 1 capsule by mouth daily at bedtime. oxyCODONE (ROXICODONE) 15 mg immediate release tablet Take 1 tablet by mouth three times a day as needed for pain for up to 30 days. semaglutide 0.25 mg/0.5 mL (0.5 mg/mL) subcutaneous compounded injection Inject subcutaneously one time a week. metFORMIN (GLUCOPHAGE) 1,000 mg tablet lisinopril-hydroCHLOROthiazide (ZESTORETIC) 10-12.5 mg per tablet Take 1 tablet by mouth every afternoon. gabapentin (NEURONTIN) 100 mg capsule TAKE 1 CAP BY MOUTH NIGHTLY NEEDED busPIRone (BUSPAR) 5 mg tablet Take 1 tablet by mouth every 12 hours. MOUNJARO 10 mg/0.5 mL pen injector inject 10 mg weekly sq VRAYLAR 1.5 mg capsule Take 1 capsule by mouth every afternoon. JARDIANCE 25 mg tablet Clobetasol Propionate 0.05 % lotn Apply to affected area two times a day as needed. omeprazole (PRILOSEC) 20 mg capsule Take 1 capsule by mouth every afternoon. FARXIGA 10 mg tablet levothyroxine (SYNTHROID) 25 mcg tablet Take 1 tablet by mouth every afternoon. levocetirizine 5 mg tablet TAKE 1 TABLET BY MOUTH EVERY EVENING NEEDED ALLERGY SYMPTOMS levothyroxine (SYNTHROID) 200 mcg tablet Take 1 tablet by mouth every afternoon. metroNIDAZOLE (FLAGYL) 500 mg tablet Take 500 mg by mouth three times daily. mupirocin (BACTROBAN) 2 % ointment Apply to affected area three times daily. leflunomide (ARAVA) 20 mg tablet Take 20 mg by mouth once daily. hydrOXYchloroQUINE (PLAQUENIL) 200 mg tablet montelukast (SINGULAIR) 10 mg tablet Take 10 mg by mouth daily at bedtime. predniSONE (DELTASONE) 10 mg tablet Take 10 mg by mouth. lidocaine-prilocaine (EMLA) 2.5-2.5 % cream Apply to affected area as needed. amLODIPine (NORVASC) 2.5 mg tablet No current facility-administered medications for this visit. OBJECTIVE: VS: BP 132/83 (BP Site: Right Arm, BP Position: Sitting, BP Cuff Size: Large Adult) Pulse 65 Resp 16 Ht 162.6 cm (5' 4) Wt (!) 143.4 kg (316 lb 2.2 oz) SpO2 97% BMI 54.27 kg/m Body mass index is 54.27 kg/m . PHYSICAL EXAMINATION: Physical Exam Constitutional: Appearance: Normal appearance. HENT: Head: Normocephalic and atraumatic. Abdominal: Palpations: Abdomen is soft. Tenderness: There is no abdominal tenderness. Musculoskeletal: General: TTP medial aspect of left knee. Normal range of motion of knees and hips. Lumbar: midline tenderness, pain with facet palpation, neg SLR Right lower le+ edema. Left lower le+ edema. Skin: General: Skin is warm. Capillary Refill: Capillary refill takes less than 2 seconds. Neurological: Mental Status: pt is alert and oriented to person, place, and time. Mental status is at baseline. Sensory: No sensory deficit. Motor: No weakness. Gait: Gait normal. Psychiatric: Mood and Affect: Mood normal. Diagnostic Imaging: Other Diagnostic Studies: The OARRS report has been reviewed and is consistent with the patients medical history and medication intake. Last Urine Drug Screen (UDS): 11/2023. The UDS has been reviewed and is consistent with medicationsprescribed. IMPRESSION: (M47.816) Lumbar spondylosis (primary encounter diagnosis) (G89.4) Chronic pain syndrome (Z79.899) High risk medication use (M54.16) Lumbar radiculopathy (M17.0) Osteoarthritis of both knees, unspecified osteoarthritis type Taryn Self is a 63 year old female here with the following issues: Chronic pain Low back pain radiating to buttocks. Previously, pain would radiate to both legs but this improved with the SCS. Left knee pain Chronically managed with narcotics. She denies side effects to the Oxycodone. She is reliant to themedication for maintenance of function. She denies side effects, other than constipation. PLAN: Treatment goals were discussed in detail with the patient. These goals include reduction of pain levels, improve the levels of functioning, avoidance of medication side effects and lowest the medication dose possible to achieve these goals. The patient was in full agreement with these goals. Also discussed is the understanding that pain may not be eliminated by medication but that the goal of better sustaining life through use of medication is appropriate Risks and side effects of chronic opioid therapy including but not limited to tolerance, dependence, constipation, hyperalgesia, cognitive side effects, addiction and possible due to overuse and or misuse of opioids were discussed. I also discussed that such medications when coadministered with other sedating agents including but not limited to alcohol, benzodiazepines, sedative hypnotics and illegal drugs such as marijuana could pose life threatening consequences including -Recommend: Refill Oxycodone , Cymbalta and Zanaflex. Medications are taken as prescribed without side effects OARRS reviewed. Reviewed opioid agreement with pt and updated in the chart Discussed treatment for consitpation. Suggest Miralax, SENNA, probiotics and fiber-rich diet to alleviate symptoms Continue with activity as tolerated Uses the SCS with benefit, battery still holds charge Consider Left knee CSI, previously helpful Follow up in 3 months The risks, benefits, alternative treatment options and prognosis were discussed and all of patient's questions/concerns were addressed. Follow-up: 3 months May certainly follow up sooner if needed. This note was produced using voice recognition software and therefore may contain typos. Please contact the author with any questions or concerns. Author: Tristian Martin PA-C 03/08/2024 10:12 AM [facility] Telephone encounter Note * Telephone Encounter - Tristian Martin PA-C - 02/24/2024 1:28 PM EST The following approved medication requests have been transmitted electronically. Requested Prescriptions Signed Prescriptions Disp Refills DULoxetine (CYMBALTA) 30 mg capsule 30 capsule 0 Sig: Take 1 capsule by mouth once daily. In am Authorizing Provider: TRISTIAN MARTIN DULoxetine (CYMBALTA) 60 mg capsule 30 capsule 0 Sig: Take 1 capsule by mouth daily at bedtime. Authorizing Provider: TRISTIAN MARTIN PA-C [facility] Miscellaneous Notes* Telephone Encounter - Tristian Martin PA-C - 02/24/2024 1:28 PM EST The following approved medication requests have been transmitted electronically. Requested Prescriptions Signed Prescriptions Disp Refills DULoxetine (CYMBALTA) 30 mg capsule 30 capsule 0 Sig: Take 1 capsule by mouth once daily. In am Authorizing Provider: TRISTIAN MARTIN DULoxetine (CYMBALTA) 60 mg capsule 30 capsule 0 Sig: Take 1 capsule by mouth daily at bedtime. Authorizing Provider: TRISTIAN MARTIN PA-C * Telephone Encounter - Becca Dudley RN - 02/24/2024 1:19 PM EST Patient phones requesting refills as follows: Requested Prescriptions Pending Prescriptions Disp Refills DULoxetine (CYMBALTA) 30 mg capsule 30 capsule 0 Sig: Take 1 capsule by mouth once daily. In am DULoxetine (CYMBALTA) 60 mg capsule 30 capsule 0 Sig: Take 1 capsule by mouth daily at bedtime. Last UDS: No specialty comments available. Summary Report Date Value Ref Range Status 12/07/2023 FINAL Final Comment: Opiate Class, MS, Ur RFX Oxycodone Class, MS, Ur RFX Gabapentin, MS, Ur RFX ToxAssure Flex 23, Ur Test Result Flag Units Drug Present Oxycodone 2747 ng/mg creat Oxymorphone 651 ng/mg creat Noroxycodone 3735 ng/mg creat Noroxymorphone 66 ng/mg creat Sources of oxycodone are scheduled prescription medications. Oxymorphone, noroxycodone, and noroxymorphone are expected metabolites of oxycodone. Oxymorphone is also available as a scheduled prescription medication. Gabapentin PRESENT Test Result Flag Units Ref Range Creatinine 79 mg/dL >=20 Declared Medications: Medication list was not provided. For clinical consultation, please call . No results found for: UQNOTE, OPIATEPNMGT, DRUGSCRPAIN Urine Panel: No results found for: UQCANN, UQBNZL, [id number], UQAMPH, UQMAMP, UQBUPRE, UQNORBUP, UQMTHD, UQEDDP, UQTRAM, UQDTRM, UQFNTL, UQNFTL, UQCODE, UQMORP, UQDCDN, UQHCOD, UQOXYC, UQHMOR, UQOXYM, UQCREA, UQPH, UQSPGR, UQOXID, UQSPQ @FLOW([id number])@ Lab Results Component Value Date SUMM FINAL 12/07/2023 Summary Report (Summary) Date Value Ref Range Status 11/24/2021 FINAL Final Comment: TOXASSURE COMP DRUG ANALYSIS,UR Test Result Flag Units Drug Present Oxycodone 1251 ng/mg creat Oxymorphone 792 ng/mg creat Noroxycodone 3098 ng/mg creat Noroxymorphone 53 ng/mg creat Sources of oxycodone are scheduled prescription medications. Oxymorphone, noroxycodone, and noroxymorphone are expected metabolites of oxycodone. Oxymorphone is also available as a scheduled prescription medication. Duloxetine PRESENT Acetaminophen PRESENT Test Result Flag Units Ref Range Creatinine 159 mg/dL >=20 Declared Medications: Medication list was not provided. For clinical consultation, please call . Last Opioid agreement effective date: 02/18/2022 Please review and advise. Becca Dudley RN documented [facility] Telephone encounter Note * Telephone Encounter - Becca Dudley RN - 02/24/2024 1:19 PM EST Patient phones requesting refills as follows: Requested Prescriptions Pending Prescriptions Disp Refills DULoxetine (CYMBALTA) 30 mg capsule 30 capsule 0 Sig: Take 1 capsule by mouth once daily. In am DULoxetine (CYMBALTA) 60 mg capsule 30 capsule 0 Sig: Take 1 capsule by mouth daily at bedtime. Last UDS: No specialty comments available. Summary Report Date Value Ref Range Status 12/07/2023 FINAL Final Comment: Opiate Class, MS, Ur RFX Oxycodone Class, MS, Ur RFX Gabapentin, MS, Ur RFX ToxAssure Flex 23, Ur Test Result Flag Units Drug Present Oxycodone 2747 ng/mg creat Oxymorphone 651 ng/mg creat Noroxycodone 3735 ng/mg creat Noroxymorphone 66 ng/mg creat Sources of oxycodone are scheduled prescription medications. Oxymorphone, noroxycodone, and noroxymorphone are expected metabolites of oxycodone. Oxymorphone is also available as a scheduled prescription medication. Gabapentin PRESENT Test Result Flag Units Ref Range Creatinine 79 mg/dL >=20 Declared Medications: Medication list was not provided. For clinical consultation, please call . No results found for: UQNOTE, OPIATEPNMGT, DRUGSCRPAIN Urine Panel: No results found for: UQCANN, UQBNZL, TLI2AMB, UQAMPH, UQMAMP, UQBUPRE, UQNORBUP, UQMTHD, UQEDDP, UQTRAM, UQDTRM, UQFNTL, UQNFTL, UQCODE, UQMORP, UQDCDN, UQHCOD, UQOXYC, UQHMOR, UQOXYM, UQCREA, UQPH, UQSPGR, UQOXID, UQSPQ @FLOW([id number])@ Lab Results Component Value Date SUMM FINAL 12/07/2023 Summary Report (Summary) Date Value Ref Range Status 11/24/2021 FINAL Final Comment: TOXASSURE COMP DRUG ANALYSIS,UR Test Result Flag Units Drug Present Oxycodone 1251 ng/mg creat Oxymorphone 792 ng/mg creat Noroxycodone 3098 ng/mg creat Noroxymorphone 53 ng/mg creat Sources of oxycodone are scheduled prescription medications. Oxymorphone, noroxycodone, and noroxymorphone are expected metabolites of oxycodone. Oxymorphone is also available as a scheduled prescription medication. Duloxetine PRESENT Acetaminophen PRESENT Test Result Flag Units Ref Range Creatinine 159 mg/dL >=20 Declared Medications: Medication list was not provided. For clinical consultation, please call . Last Opioid agreement effective date: 02/18/2022 Please review and advise. Becca Dudley RN [facility]12-[facility] Telephone encounter Note* Telephone Encounter - Tristian Martin PA-C - 02/08/2024 9:18 AM EST The following approved medication requests have been transmitted electronically. Requested Prescriptions Signed Prescriptions Disp Refills oxyCODONE (ROXICODONE) 15 mg immediate release tablet 90 tablet 0 Sig: Take 1 tablet by mouth three times a day as needed for pain for up to 30 days. Authorizing Provider: TRISTIAN MARTIN PA-C [facility]12-[facility] Miscellaneous Notes* Telephone Encounter - Tristian Martin PA-C - 02/08/2024 9:18 AM EST The following approved medication requests have been transmitted electronically. Requested Prescriptions Signed Prescriptions Disp Refills oxyCODONE (ROXICODONE) 15 mg immediate release tablet 90 tablet 0 Sig: Take 1 tablet by mouth three times a day as needed for pain for up to 30 days. Authorizing Provider: TRISTIAN MARTIN PA-C * Telephone Encounter - Becca Dudley RN - 02/07/2024 2:23 PM EST Pt states she is out of medication Patient phones requesting refills as follows: Requested Prescriptions Pending Prescriptions Disp Refills oxyCODONE (ROXICODONE) 15 mg immediate release tablet 90 tablet 0 Sig: Take 1 tablet by mouth three times a day as needed for pain for up to 30 days. Last UDS: No specialty comments available. Summary Report Date Value Ref Range Status 12/07/2023 FINAL Final Comment: Opiate Class, MS, Ur RFX Oxycodone Class, MS, Ur RFX Gabapentin, MS, Ur RFX ToxAssure Flex 23, Ur Test Result Flag Units Drug Present Oxycodone 2747 ng/mg creat Oxymorphone 651 ng/mg creat Noroxycodone 3735 ng/mg creat Noroxymorphone 66 ng/mg creat Sources of oxycodone are scheduled prescription medications. Oxymorphone, noroxycodone, and noroxymorphone are expected metabolites of oxycodone. Oxymorphone is also available as a scheduled prescription medication. Gabapentin PRESENT Test Result Flag Units Ref Range Creatinine 79 mg/dL >=20 Declared Medications: Medication list was not provided. For clinical consultation, please call . No results found for: UQNOTE, OPIATEPNMGT, DRUGSCRPAIN Urine Panel: No results found for: UQCANN, UQBNZL, [id number], UQAMPH, UQMAMP, UQBUPRE, UQNORBUP, UQMTHD, UQEDDP, UQTRAM, UQDTRM, UQFNTL, UQNFTL, UQCODE, UQMORP, UQDCDN, UQHCOD, UQOXYC, UQHMOR, UQOXYM, UQCREA, UQPH, UQSPGR, UQOXID, UQSPQ @FLOW([id number])@ Lab Results Component Value Date SUMM FINAL 12/07/2023 Summary Report (Summary) Date Value Ref Range Status 11/24/2021 FINAL Final Comment: TOXASSURE COMP DRUG ANALYSIS,UR Test Result Flag Units Drug Present Oxycodone 1251 ng/mg creat Oxymorphone 792 ng/mg creat Noroxycodone 3098 ng/mg creat Noroxymorphone 53 ng/mg creat Sources of oxycodone are scheduled prescription medications. Oxymorphone, noroxycodone, and noroxymorphone are expected metabolites of oxycodone. Oxymorphone is also available as a scheduled prescription medication. Duloxetine PRESENT Acetaminophen PRESENT Test Result Flag Units Ref Range Creatinine 159 mg/dL >=20 Declared Medications: Medication list was not provided. For clinical consultation, please call . Last Opioid agreement effective date: 02/18/2022 Please review and advise. Becca Dudley RN documented [facility]12-[facility] Telephone encounter Note * Telephone Encounter - Becca Dudley RN - 02/07/2024 2:23 PM EST Pt states she is out of medication Patient phones requesting refills as follows: Requested Prescriptions Pending Prescriptions Disp Refills oxyCODONE (ROXICODONE) 15 mg immediate release tablet 90 tablet 0 Sig: Take 1 tablet by mouth three times a day as needed for pain for up to 30 days. Last UDS: No specialty comments available. Summary Report Date Value Ref Range Status 12/07/2023 FINAL Final Comment: Opiate Class, MS, Ur RFX Oxycodone Class, MS, Ur RFX Gabapentin, MS, Ur RFX ToxAssure Flex 23, Ur Test Result Flag Units Drug Present Oxycodone 2747 ng/mg creat Oxymorphone 651 ng/mg creat Noroxycodone 3735 ng/mg creat Noroxymorphone 66 ng/mg creat Sources of oxycodone are scheduled prescription medications. Oxymorphone, noroxycodone, and noroxymorphone are expected metabolites of oxycodone. Oxymorphone is also available as a scheduled prescription medication. Gabapentin PRESENT Test Result Flag Units Ref Range Creatinine 79 mg/dL >=20 Declared Medications: Medication list was not provided. For clinical consultation, please call . No results found for: UQNOTE, OPIATEPNMGT, DRUGSCRPAIN Urine Panel: No results found for: UQCANN, UQBNZL, [id number], UQAMPH, UQMAMP, UQBUPRE, UQNORBUP, UQMTHD, UQEDDP, UQTRAM, UQDTRM, UQFNTL, UQNFTL, UQCODE, UQMORP, UQDCDN, UQHCOD, UQOXYC, UQHMOR, UQOXYM, UQCREA, UQPH, UQSPGR, UQOXID, UQSPQ @FLOW([id number])@ Lab Results Component Value Date SUMM FINAL 12/07/2023 Summary Report (Summary) Date Value Ref Range Status 11/24/2021 FINAL Final Comment: TOXASSURE COMP DRUG ANALYSIS,UR Test Result Flag Units Drug Present Oxycodone 1251 ng/mg creat Oxymorphone 792 ng/mg creat Noroxycodone 3098 ng/mg creat Noroxymorphone 53 ng/mg creat Sources of oxycodone are scheduled prescription medications. Oxymorphone, noroxycodone, and noroxymorphone are expected metabolites of oxycodone. Oxymorphone is also available as a scheduled prescription medication. Duloxetine PRESENT Acetaminophen PRESENT Test Result Flag Units Ref Range Creatinine 159 mg/dL >=20 Declared Medications: Medication list was not provided. For clinical consultation, please call . Last Opioid agreement effective date: 02/18/2022 Please review and advise. Becca Dudley RN [facility]12-[facility] Telephone encounter Note* Telephone Encounter - Carline Cabrera RN - 01/23/2024 11:25 AM EST Patient phones requesting refills as follows: Requested Prescriptions Pending Prescriptions Disp Refills DULoxetine (CYMBALTA) 30 mg capsule 30 capsule 0 Sig: Take 1 capsule by mouth once daily. In am DULoxetine (CYMBALTA) 60 mg capsule 30 capsule 0 Sig: Take 1 capsule by mouth daily at bedtime. Last UDS: No specialty comments available. Summary Report Date Value Ref Range Status 12/07/2023 FINAL Final Comment: Opiate Class, MS, Ur RFX Oxycodone Class, MS, Ur RFX Gabapentin, MS, Ur RFX ToxAssure Flex 23, Ur Test Result Flag Units Drug Present Oxycodone 2747 ng/mg creat Oxymorphone 651 ng/mg creat Noroxycodone 3735 ng/mg creat Noroxymorphone 66 ng/mg creat Sources of oxycodone are scheduled prescription medications. Oxymorphone, noroxycodone, and noroxymorphone are expected metabolites of oxycodone. Oxymorphone is also available as a scheduled prescription medication. Gabapentin PRESENT Test Result Flag Units Ref Range Creatinine 79 mg/dL >=20 Declared Medications: Medication list was not provided. For clinical consultation, please call . No results found for: UQNOTE, OPIATEPNMGT, DRUGSCRPAIN Urine Panel: No results found for: UQCANN, UQBNZL, [id number], UQAMPH, UQMAMP, UQBUPRE, UQNORBUP, UQMTHD, UQEDDP, UQTRAM, UQDTRM, UQFNTL, UQNFTL, UQCODE, UQMORP, UQDCDN, UQHCOD, UQOXYC, UQHMOR, UQOXYM, UQCREA, UQPH, UQSPGR, UQOXID, UQSPQ @FLOW([id number])@ Lab Results Component Value Date SUMM FINAL 12/07/2023 Summary Report (Summary) Date Value Ref Range Status 11/24/2021 FINAL Final Comment: TOXASSURE COMP DRUG ANALYSIS,UR Test Result Flag Units Drug Present Oxycodone 1251 ng/mg creat Oxymorphone 792 ng/mg creat Noroxycodone 3098 ng/mg creat Noroxymorphone 53 ng/mg creat Sources of oxycodone are scheduled prescription medications. Oxymorphone, noroxycodone, and noroxymorphone are expected metabolites of oxycodone. Oxymorphone is also available as a scheduled prescription medication. Duloxetine PRESENT Acetaminophen PRESENT Test Result Flag Units Ref Range Creatinine 159 mg/dL >=20 Declared Medications: Medication list was not provided. For clinical consultation, please call . Last Opioid agreement effective date: 02/18/2022 Please review and advise. Carline Cabrera RN [facility]12-02-[facility]24 Miscellaneous Notes* Telephone Encounter - Carline Cabrera RN - 01/23/2024 11:25 AM EST Patient phones requesting refills as follows: Requested Prescriptions Pending Prescriptions Disp Refills DULoxetine (CYMBALTA) 30 mg capsule 30 capsule 0 Sig: Take 1 capsule by mouth once daily. In am DULoxetine (CYMBALTA) 60 mg capsule 30 capsule 0 Sig: Take 1 capsule by mouth daily at bedtime. Last UDS: No specialty comments available. Summary Report Date Value Ref Range Status 12/07/2023 FINAL Final Comment: Opiate Class, MS, Ur RFX Oxycodone Class, MS, Ur RFX Gabapentin, MS, Ur RFX ToxAssure Flex 23, Ur Test Result Flag Units Drug Present Oxycodone 2747 ng/mg creat Oxymorphone 651 ng/mg creat Noroxycodone 3735 ng/mg creat Noroxymorphone 66 ng/mg creat Sources of oxycodone are scheduled prescription medications. Oxymorphone, noroxycodone, and noroxymorphone are expected metabolites of oxycodone. Oxymorphone is also available as a scheduled prescription medication. Gabapentin PRESENT Test Result Flag Units Ref Range Creatinine 79 mg/dL >=20 Declared Medications: Medication list was not provided. For clinical consultation, please call . No results found for: UQNOTE, OPIATEPNMGT, DRUGSCRPAIN Urine Panel: No results found for: UQCANN, UQBNZL, GET7BUW, UQAMPH, UQMAMP, UQBUPRE, UQNORBUP, UQMTHD, UQEDDP, UQTRAM, UQDTRM, UQFNTL, UQNFTL, UQCODE, UQMORP, UQDCDN, UQHCOD, UQOXYC, UQHMOR, UQOXYM, UQCREA, UQPH, UQSPGR, UQOXID, UQSPQ @FLOW([id number])@ Lab Results Component Value Date SUMM FINAL 12/07/2023 Summary Report (Summary) Date Value Ref Range Status 11/24/2021 FINAL Final Comment: TOXASSURE COMP DRUG ANALYSIS,UR Test Result Flag Units Drug Present Oxycodone 1251 ng/mg creat Oxymorphone 792 ng/mg creat Noroxycodone 3098 ng/mg creat Noroxymorphone 53 ng/mg creat Sources of oxycodone are scheduled prescription medications. Oxymorphone, noroxycodone, and noroxymorphone are expected metabolites of oxycodone. Oxymorphone is also available as a scheduled prescription medication. Duloxetine PRESENT Acetaminophen PRESENT Test Result Flag Units Ref Range Creatinine 159 mg/dL >=20 Declared Medications: Medication list was not provided. For clinical consultation, please call . Last Opioid agreement effective date: 02/18/2022 Please review and advise. Carline Cabrera RN [facility] Telephone encounter Note * Telephone Encounter - Sho Gates RN - 01/03/2024 9:00 AM EST Patient phones requesting refills as follows: Requested Prescriptions Pending Prescriptions Disp Refills oxyCODONE (ROXICODONE) 15 mg immediate release tablet 90 tablet 0 Sig: Take 1 tablet by mouth three times a day as needed for pain for up to 30 days. Last UDS: No specialty comments available. Summary Report Date Value Ref Range Status 12/07/2023 FINAL Final Comment: Opiate Class, MS, Ur RFX Oxycodone Class, MS, Ur RFX Gabapentin, MS, Ur RFX ToxAssure Flex 23, Ur Test Result Flag Units Drug Present Oxycodone 2747 ng/mg creat Oxymorphone 651 ng/mg creat Noroxycodone 3735 ng/mg creat Noroxymorphone 66 ng/mg creat Sources of oxycodone are scheduled prescription medications. Oxymorphone, noroxycodone, and noroxymorphone are expected metabolites of oxycodone. Oxymorphone is also available as a scheduled prescription medication. Gabapentin PRESENT Test Result Flag Units Ref Range Creatinine 79 mg/dL >=20 Declared Medications: Medication list was not provided. For clinical consultation, please call . No results found for: UQNOTE, OPIATEPNMGT, DRUGSCRPAIN Urine Panel: No results found for: UQCANN, UQBNZL, [id number], UQAMPH, UQMAMP, UQBUPRE, UQNORBUP, UQMTHD, UQEDDP, UQTRAM, UQDTRM, UQFNTL, UQNFTL, UQCODE, UQMORP, UQDCDN, UQHCOD, UQOXYC, UQHMOR, UQOXYM, UQCREA, UQPH, UQSPGR, UQOXID, UQSPQ @FLOW([id number])@ Lab Results Component Value Date SUMM FINAL 12/07/2023 Summary Report (Summary) Date Value Ref Range Status 11/24/2021 FINAL Final Comment: TOXASSURE COMP DRUG ANALYSIS,UR Test Result Flag Units Drug Present Oxycodone 1251 ng/mg creat Oxymorphone 792 ng/mg creat Noroxycodone 3098 ng/mg creat Noroxymorphone 53 ng/mg creat Sources of oxycodone are scheduled prescription medications. Oxymorphone, noroxycodone, and noroxymorphone are expected metabolites of oxycodone. Oxymorphone is also available as a scheduled prescription medication. Duloxetine PRESENT Acetaminophen PRESENT Test Result Flag Units Ref Range Creatinine 159 mg/dL >=20 Declared Medications: Medication list was not provided. For clinical consultation, please call . Last Opioid agreement effective date: 02/18/2022 Please review and advise. Sho Gates RN [facility]11-12-2024 Miscellaneous Notes* Telephone Encounter - Sho Gates RN - 01/03/2024 9:00 AM EST Patient phones requesting refills as follows: Requested Prescriptions Pending Prescriptions Disp Refills oxyCODONE (ROXICODONE) 15 mg immediate release tablet 90 tablet 0 Sig: Take 1 tablet by mouth three times a day as needed for pain for up to 30 days. Last UDS: No specialty comments available. Summary Report Date Value Ref Range Status 12/07/2023 FINAL Final Comment: Opiate Class, MS, Ur RFX Oxycodone Class, MS, Ur RFX Gabapentin, MS, Ur RFX ToxAssure Flex 23, Ur Test Result Flag Units Drug Present Oxycodone 2747 ng/mg creat Oxymorphone 651 ng/mg creat Noroxycodone 3735 ng/mg creat Noroxymorphone 66 ng/mg creat Sources of oxycodone are scheduled prescription medications. Oxymorphone, noroxycodone, and noroxymorphone are expected metabolites of oxycodone. Oxymorphone is also available as a scheduled prescription medication. Gabapentin PRESENT Test Result Flag Units Ref Range Creatinine 79 mg/dL >=20 Declared Medications: Medication list was not provided. For clinical consultation, please call . No results found for: UQNOTE, OPIATEPNMGT, DRUGSCRPAIN Urine Panel: No results found for: UQCANN, UQBNZL, EGG2CUH, UQAMPH, UQMAMP, UQBUPRE, UQNORBUP, UQMTHD, UQEDDP, UQTRAM, UQDTRM, UQFNTL, UQNFTL, UQCODE, UQMORP, UQDCDN, UQHCOD, UQOXYC, UQHMOR, UQOXYM, UQCREA, UQPH, UQSPGR, UQOXID, UQSPQ @FLOW([id number])@ Lab Results Component Value Date SUMM FINAL 12/07/2023 Summary Report (Summary) Date Value Ref Range Status 11/24/2021 FINAL Final Comment: TOXASSURE COMP DRUG ANALYSIS,UR Test Result Flag Units Drug Present Oxycodone 1251 ng/mg creat Oxymorphone 792 ng/mg creat Noroxycodone 3098 ng/mg creat Noroxymorphone 53 ng/mg creat Sources of oxycodone are scheduled prescription medications. Oxymorphone, noroxycodone, and noroxymorphone are expected metabolites of oxycodone. Oxymorphone is also available as a scheduled prescription medication. Duloxetine PRESENT Acetaminophen PRESENT Test Result Flag Units Ref Range Creatinine 159 mg/dL >=20 Declared Medications: Medication list was not provided. For clinical consultation, please call . Last Opioid agreement effective date: 02/18/2022 Please review and advise. Sho Gates RN documented in this encounter[facility]10-16-[facility]24 History of Present illness Narrative* Jay Esparza MD - 12/07/2023 10:30 AM EDT Sadia was used to dictate this note and therefore there may be some typographical errors. I attest to the fact that I spent a total of 16 min with the patient to include: Face to face time and non face to face time such as: Reviewing test's, reviewing medical records, reviewing imaging studies, ordering tests, etc. The patient was last seen on 09/07/2023. Treatment plan at that time included the following: Continue on combination Cymbalta, Zanaflex, and oxycodone, continue to be as active as possible, continue use of spinal cord stimulator. These medications have been prescribed by Dr. Osorio and her staff for quite some time. She returns today for follow-up visit. PE: Alert and oriented no acute distress. Mood and affect within normal limits. Vital signs as indicated. Slow deliberate gait nonantalgic. Dx: Lumbar DDD, lumbar foraminal stenosis, lumbar DJD, lumbar facet arthropathy, lumbar spondylosis, low back pain, lumbar radiculitis, bilateral knee osteoarthritis and bilateral knee pain, gait disturbance, right-sided foot drop, status post spinal cord stimulator, hypertension, hypercholesterolemia,mitral prolapse, obstructive sleep apnea, stage III renal disease, diabetes with diabetic neuropathy, neuropathic pain, chronic pain syndrome, chronic opioid usage. Patient is on the above analgesic regimen. Patient denies any systemic side effects. Patient believes the pain meds have helped (as indicated by VAS). Patient has signed Medication Management Agreement and Informed Consent Form (contract). I have also utilized the Intractable Pain and Drug Prescription Checklist as promulgated by [facility]. Furthermore, I have adhered to the [facility] Administrative Code 4731-11. The medication clearly improves this patient's functionality and quality of life as evidence by improved social, recreational activities. Thereis no evidence of any: drug abuse, drug addiction nor drug diversion. The patient has never called in early for a refill, is not particularly focused on pain medication, has never shown up in our office unexpectedly without appointment, nor called in stating a lost prescription. 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 The patient has been informed that the analgesics are potentially addicting and need to be taken strictly as prescribed. I have checked an OARRS on this patient which came back as expected. The patient has received an opioid education handout and filled out an opioid screener (SOAPP). I have had the patient submit a random urine drug screen & the patient does have biological markers which would corroborate and substantiate chronic pain (see prior imaging studies). Additionally I did discuss Narcan with the patient and informed the patient that Narcan is now available at their pharmacy if they so request. Plan: As above, patient was last seen on 09/07/2023. Treatment plan at that time included the following: Continue on combination Cymbalta, Zanaflex, and oxycodone, continue to be as active as possible, continue use of spinal cord stimulator. These medications have been prescribed by Dr. Osorio and her staff for quite some time. Urine drug screen updated Patient continues to do quite well on combination of Cymbalta, Zanaflex, and oxycodone. She is quite active and functional. She will follow-up in 3 months with Tristian or Brody. [facility] NoteHNO ID: [id number] Author: JAY ESPARZA MD Service: ? Author Type: Anesthesiologist Type: Progress Notes Filed: 12/07/2023 10:42 Note Text: Ellispeter was used to dictate this note and therefore there may be some typographical errors. I attest to the fact that I spent a total of 16 min with the patient to include: Face to face time and non face to face time such as: Reviewing test's, reviewing medical records, reviewing imaging studies, ordering tests, etc. The patient was last seen on 09/07/2023. Treatment plan at that time included the following: Continue on combination Cymbalta, Zanaflex, and oxycodone, continue to be as active as possible, continue use of spinal cord stimulator. These medications have been prescribed by Dr. Osorio and her staff for quite some time. She returns today for follow-up visit. PE: Alert and oriented no acute distress. Mood and affect within normal limits. Vital signs as indicated. Slow deliberate gait nonantalgic. Dx: Lumbar DDD, lumbar foraminal stenosis, lumbar DJD, lumbar facet arthropathy, lumbar spondylosis, low back pain, lumbar radiculitis, bilateral knee osteoarthritis and bilateral knee pain, gait disturbance, right-sided foot drop, status post spinal cord stimulator, hypertension, hypercholesterolemia, mitral prolapse, obstructive sleep apnea, stage III renal disease, diabetes with diabetic neuropathy, neuropathic pain, chronic pain syndrome, chronic opioid usage. Patient is on the above analgesic regimen. Patient denies any systemic side effects. Patient believes the pain meds have helped (as indicated by VAS). Patient has signed Medication Management Agreement and Informed Consent Form (contract). I have also utilized the Intractable Pain and Drug Prescription Checklist as promulgated by [facility]. Furthermore, I have adhered to the [facility] Administrative Code 4731-11. The medication clearly improves this patient's functionality and quality of life as evidence by improved social, recreational activities. There is no evidence of any: drug abuse, drug addiction nor drug diversion. The patient has never called in early for a refill, is not particularly focused on pain medication, has never shown up in our office unexpectedly without appointment, nor called instating a lost prescription. 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 The patient has been informed that the analgesics are potentially addicting and need to be taken strictly as prescribed. I have checked an OARRS on this patient which came back as expected. The patient has received an opioid education handout and filled out an opioid screener (SOAPP). I have had the patient submit a random urine drug screen AND the patient does have biological markers which would corroborate and substantiate chronic pain (see prior imaging studies). Additionally I did discuss Narcan with the patient and informed the patient that Narcan is now available at their pharmacy if they so request. Plan: As above, patient was last seen on 09/07/2023. Treatment plan at that time included the following: Continue on combination Cymbalta, Zanaflex, and oxycodone, continue to be as active as possible, continue use of spinal cord stimulator. These medications have been prescribed by Dr. Osorio and her staff for quite some time. Urine drug screen updated Patient continues to do quite well on combination of Cymbalta, Zanaflex, and oxycodone. She is quite active and functional. She will follow-up in 3 months with Tristian Skinner.[facility] 11-22-2023 Telephone encounter Note* Telephone Encounter - Sho Gates RN - 11/22/2023 10:43 AM EDT Patient phones requesting refills as follows: Requested Prescriptions Pending Prescriptions Disp Refills DULoxetine (CYMBALTA) 60 mg capsule 30 capsule 0 Sig: Take 1 capsule by mouth daily at bedtime. DULoxetine (CYMBALTA) 30 mg capsule 30 capsule 0 Sig: Take 1 capsule by mouth once daily. In am Please review and advise. Sho Gatse RN [facility]10-[facility] Miscellaneous Notes* Telephone Encounter - Sho Gates RN - 11/22/2023 10:43 AM EDT Patient phones requesting refills as follows: Requested Prescriptions Pending Prescriptions Disp Refills DULoxetine (CYMBALTA) 60 mg capsule 30 capsule 0 Sig: Take 1 capsule by mouth daily at bedtime. DULoxetine (CYMBALTA) 30 mg capsule 30 capsule 0 Sig: Take 1 capsule by mouth once daily. In am Please review and advise. Sho Gates RN documented in [facility] encounter[facility]09-16-[facility]24 Telephone encounter Note * Telephone Encounter - Grace Hall RN - 11/07/2023 9:31 AM EDT Patient phones requesting refills as follows: Requested Prescriptions Pending Prescriptions Disp Refills oxyCODONE (ROXICODONE) 15 mg immediate release tablet 90 tablet 0 Sig: Take 1 tablet by mouth three times a day as needed for pain for up to 30 days. Last UDS: No specialty comments available. Summary Report Date Value Ref Range Status 06/09/2023 FINAL Final Comment: Opiate Class, MS, Ur RFX Oxycodone Class, MS, Ur RFX ToxAssure Flex 23, Ur Test Result Flag Units Drug Present Oxycodone 2956 ng/mg creat Oxymorphone 65 ng/mg creat Noroxycodone 3109 ng/mg creat Sources of oxycodone include scheduled prescription medications. Oxymorphone and noroxycodone are expected metabolites of oxycodone. Oxymorphone is also available as a scheduled prescription medication. Test Result Flag Units Ref Range Creatinine 124 mg/dL >=20 Declared Medications: Medication list was not provided. For clinical consultation, please call . No results found for: UQNOTE, OPIATEPNMGT, DRUGSCRPAIN Urine Panel: No results found for: UQCANN, UQBNZL, [id number], UQAMPH, UQMAMP, UQBUPRE, UQNORBUP, UQMTHD, UQEDDP, UQTRAM, UQDTRM, UQFNTL, UQNFTL, UQCODE, UQMORP, UQDCDN, UQHCOD, UQOXYC, UQHMOR, UQOXYM, UQCREA, UQPH, UQSPGR, UQOXID, UQSPQ @FLOW([id number])@ Lab Results Component Value Date SUMM FINAL 06/09/2023 Summary Report (Summary) Date Value Ref Range Status 11/24/2021 FINAL Final Comment: TOXASSURE COMP DRUG ANALYSIS,UR Test Result Flag Units Drug Present Oxycodone 1251 ng/mg creat Oxymorphone 792 ng/mg creat Noroxycodone 3098 ng/mg creat Noroxymorphone 53 ng/mg creat Sources of oxycodone are scheduled prescription medications. Oxymorphone, noroxycodone, and noroxymorphone are expected metabolites of oxycodone. Oxymorphone is also available as a scheduled prescription medication. Duloxetine PRESENT Acetaminophen PRESENT Test Result Flag Units Ref Range Creatinine 159 mg/dL >=20 Declared Medications: Medication list was not provided. For clinical consultation, please call . Last Opioid agreement effective date: 02/18/2022 Please review and advise. Grace Hall RN [facility]09-[facility] Miscellaneous Notes* Telephone Encounter - Grace Hall RN - 11/07/2023 9:31 AM EDT Patient phones requesting refills as follows: Requested Prescriptions Pending Prescriptions Disp Refills oxyCODONE (ROXICODONE) 15 mg immediate release tablet 90 tablet 0 Sig: Take 1 tablet by mouth three times a day as needed for pain for up to 30 days. Last UDS: No specialty comments available. Summary Report Date Value Ref Range Status 06/09/2023 FINAL Final Comment: Opiate Class, MS, Ur RFX Oxycodone Class, MS, Ur RFX ToxAssure Flex 23, Ur Test Result Flag Units Drug Present Oxycodone 2956 ng/mg creat Oxymorphone 65 ng/mg creat Noroxycodone 3109 ng/mg creat Sources of oxycodone include scheduled prescription medications. Oxymorphone and noroxycodone are expected metabolites of oxycodone. Oxymorphone is also available as a scheduled prescription medication. Test Result Flag Units Ref Range Creatinine 124 mg/dL >=20 Declared Medications: Medication list was not provided. For clinical consultation, please call . No results found for: UQNOTE, OPIATEPNMGT, DRUGSCRPAIN Urine Panel: No results found for: UQCANN, UQBNZL, [id number], UQAMPH, UQMAMP, UQBUPRE, UQNORBUP, UQMTHD, UQEDDP, UQTRAM, UQDTRM, UQFNTL, UQNFTL, UQCODE, UQMORP, UQDCDN, UQHCOD, UQOXYC, UQHMOR, UQOXYM, UQCREA, UQPH, UQSPGR, UQOXID, UQSPQ @FLOW([id number])@ Lab Results Component Value Date SUMM FINAL 06/09/2023 Summary Report (Summary) Date Value Ref Range Status 11/24/2021 FINAL Final Comment: TOXASSURE COMP DRUG ANALYSIS,UR Test Result Flag Units Drug Present Oxycodone 1251 ng/mg creat Oxymorphone 792 ng/mg creat Noroxycodone 3098 ng/mg creat Noroxymorphone 53 ng/mg creat Sources of oxycodone are scheduled prescription medications. Oxymorphone, noroxycodone, and noroxymorphone are expected metabolites of oxycodone. Oxymorphone is also available as a scheduled prescription medication. Duloxetine PRESENT Acetaminophen PRESENT Test Result Flag Units Ref Range Creatinine 159 mg/dL >=20 Declared Medications: Medication list was not provided. For clinical consultation, please call . Last Opioid agreement effective date: 02/18/2022 Please review and advise. Grace Hall RN documented in this encounter[facility]08-30-[facility]24 Telephone encounter Note * Telephone Encounter - Estephania Rondon APRN.CNP - 10/21/2023 10:43 AM EDT The following approved medication requests have been transmitted electronically. Requested Prescriptions Signed Prescriptions Disp Refills DULoxetine (CYMBALTA) 30 mg capsule 30 capsule 0 Sig: Take 1 capsule by mouth once daily. In am Authorizing Provider: ESTEPHANIA RONDON DULoxetine (CYMBALTA) 60 mg capsule 30 capsule 0 Sig: Take 1 capsule by mouth daily at bedtime. Authorizing Provider: ESTEPHANIA RONDON APRN.CNP [facility]08-30-[facility]24 Miscellaneous Notes* Telephone Encounter - Estephania Rondon APRN.CNP - 10/21/2023 10:43 AM EDT The following approved medication requests have been transmitted electronically. Requested Prescriptions Signed Prescriptions Disp Refills DULoxetine (CYMBALTA) 30 mg capsule 30 capsule 0 Sig: Take 1 capsule by mouth once daily. In am Authorizing Provider: ESTEPHANIA RONDON DULoxetine (CYMBALTA) 60 mg capsule 30 capsule 0 Sig: Take 1 capsule by mouth daily at bedtime. Authorizing Provider: ESTEPHANIA RONDON APRN.CNP * Telephone Encounter - Carline Cabrera RN - 10/21/2023 10:16 AM EDT Patient phones requesting refills as follows: Requested Prescriptions Pending Prescriptions Disp Refills DULoxetine (CYMBALTA) 30 mg capsule 30 capsule 0 Sig: Take 1 capsule by mouth once daily. In am DULoxetine (CYMBALTA) 60 mg capsule 30 capsule 0 Sig: Take 1 capsule by mouth daily at bedtime. Last UDS: No specialty comments available. Summary Report Date Value Ref Range Status 06/09/2023 FINAL Final Comment: Opiate Class, MS, Ur RFX Oxycodone Class, MS, Ur RFX ToxAssure Flex 23, Ur Test Result Flag Units Drug Present Oxycodone 2956 ng/mg creat Oxymorphone 65 ng/mg creat Noroxycodone 3109 ng/mg creat Sources of oxycodone include scheduled prescription medications. Oxymorphone and noroxycodone are expected metabolites of oxycodone. Oxymorphone is also available as a scheduled prescription medication. Test Result Flag Units Ref Range Creatinine 124 mg/dL >=20 Declared Medications: Medication list was not provided. For clinical consultation, please call . No results found for: UQNOTE, OPIATEPNMGT, DRUGSCRPAIN Urine Panel: No results found for: UQCANN, UQBNZL, [id number], UQAMPH, UQMAMP, UQBUPRE, UQNORBUP, UQMTHD, UQEDDP, UQTRAM, UQDTRM, UQFNTL, UQNFTL, UQCODE, UQMORP, UQDCDN, UQHCOD, UQOXYC, UQHMOR, UQOXYM, UQCREA, UQPH, UQSPGR, UQOXID, UQSPQ @FLOW([id number])@ Lab Results Component Value Date SUMM FINAL 06/09/2023 Summary Report (Summary) Date Value Ref Range Status 11/24/2021 FINAL Final Comment: TOXASSURE COMP DRUG ANALYSIS,UR Test Result Flag Units Drug Present Oxycodone 1251 ng/mg creat Oxymorphone 792 ng/mg creat Noroxycodone 3098 ng/mg creat Noroxymorphone 53 ng/mg creat Sources of oxycodone are scheduled prescription medications. Oxymorphone, noroxycodone, and noroxymorphone are expected metabolites of oxycodone. Oxymorphone is also available as a scheduled prescription medication. Duloxetine PRESENT Acetaminophen PRESENT Test Result Flag Units Ref Range Creatinine 159 mg/dL >=20 Declared Medications: Medication list was not provided. For clinical consultation, please call . Last Opioid agreement effective date: 02/18/2022 Please review and advise. Carline Cabrera RN documented [facility] encounter[facility]-30-[facility]24 Telephone encounter Note * Telephone Encounter - Carline Cabrera RN - 10/21/2023 10:16 AM EDT Patient phones requesting refills as follows: Requested Prescriptions Pending Prescriptions Disp Refills DULoxetine (CYMBALTA) 30 mg capsule 30 capsule 0 Sig: Take 1 capsule by mouth once daily. In am DULoxetine (CYMBALTA) 60 mg capsule 30 capsule 0 Sig: Take 1 capsule by mouth daily at bedtime. Last UDS: No specialty comments available. Summary Report Date Value Ref Range Status 06/09/2023 FINAL Final Comment: Opiate Class, MS, Ur RFX Oxycodone Class, MS, Ur RFX ToxAssure Flex 23, Ur Test Result Flag Units Drug Present Oxycodone 2956 ng/mg creat Oxymorphone 65 ng/mg creat Noroxycodone 3109 ng/mg creat Sources of oxycodone include scheduled prescription medications. Oxymorphone and noroxycodone are expected metabolites of oxycodone. Oxymorphone is also available as a scheduled prescription medication. Test Result Flag Units Ref Range Creatinine 124 mg/dL >=20 Declared Medications: Medication list was not provided. For clinical consultation, please call . No results found for: UQNOTE, OPIATEPNMGT, DRUGSCRPAIN Urine Panel: No results found for: UQCANN, UQBNZL, [id number], UQAMPH, UQMAMP, UQBUPRE, UQNORBUP, UQMTHD, UQEDDP, UQTRAM, UQDTRM, UQFNTL, UQNFTL, UQCODE, UQMORP, UQDCDN, UQHCOD, UQOXYC, UQHMOR, UQOXYM, UQCREA, UQPH, UQSPGR, UQOXID, UQSPQ @FLOW([id number])@ Lab Results Component Value Date SUMM FINAL 06/09/2023 Summary Report (Summary) Date Value Ref Range Status 11/24/2021 FINAL Final Comment: TOXASSURE COMP DRUG ANALYSIS,UR Test Result Flag Units Drug Present Oxycodone 1251 ng/mg creat Oxymorphone 792 ng/mg creat Noroxycodone 3098 ng/mg creat Noroxymorphone 53 ng/mg creat Sources of oxycodone are scheduled prescription medications. Oxymorphone, noroxycodone, and noroxymorphone are expected metabolites of oxycodone. Oxymorphone is also available as a scheduled prescription medication. Duloxetine PRESENT Acetaminophen PRESENT Test Result Flag Units Ref Range Creatinine 159 mg/dL >=20 Declared Medications: Medication list was not provided. For clinical consultation, please call . Last Opioid agreement effective date: 02/18/2022 Please review and advise. Carline Cabrera RN [facility]08-[facility] Telephone encounter Note* Telephone Encounter - Carline Cabrera RN - 10/03/2023 9:06 AM EDT Patient phones requesting refills as follows: Requested Prescriptions Pending Prescriptions Disp Refills oxyCODONE (ROXICODONE) 15 mg immediate release tablet 90 tablet 0 Sig: Take 1 tablet by mouth three times a day as needed for pain for up to 30 days. Last UDS: No specialty comments available. Summary Report Date Value Ref Range Status 06/09/2023 FINAL Final Comment: Opiate Class, MS, Ur RFX Oxycodone Class, MS, Ur RFX ToxAssure Flex 23, Ur Test Result Flag Units Drug Present Oxycodone 2956 ng/mg creat Oxymorphone 65 ng/mg creat Noroxycodone 3109 ng/mg creat Sources of oxycodone include scheduled prescription medications. Oxymorphone and noroxycodone are expected metabolites of oxycodone. Oxymorphone is also available as a scheduled prescription medication. Test Result Flag Units Ref Range Creatinine 124 mg/dL >=20 Declared Medications: Medication list was not provided. For clinical consultation, please call . No results found for: UQNOTE, OPIATEPNMGT, DRUGSCRPAIN Urine Panel: No results found for: UQCANN, UQBNZL, [id number], UQAMPH, UQMAMP, UQBUPRE, UQNORBUP, UQMTHD, UQEDDP, UQTRAM, UQDTRM, UQFNTL, UQNFTL, UQCODE, UQMORP, UQDCDN, UQHCOD, UQOXYC, UQHMOR, UQOXYM, UQCREA, UQPH, UQSPGR, UQOXID, UQSPQ @FLOW([id number])@ Lab Results Component Value Date SUMM FINAL 06/09/2023 Summary Report (Summary) Date Value Ref Range Status 11/24/2021 FINAL Final Comment: TOXASSURE COMP DRUG ANALYSIS,UR Test Result Flag Units Drug Present Oxycodone 1251 ng/mg creat Oxymorphone 792 ng/mg creat Noroxycodone 3098 ng/mg creat Noroxymorphone 53 ng/mg creat Sources of oxycodone are scheduled prescription medications. Oxymorphone, noroxycodone, and noroxymorphone are expected metabolites of oxycodone. Oxymorphone is also available as a scheduled prescription medication. Duloxetine PRESENT Acetaminophen PRESENT Test Result Flag Units Ref Range Creatinine 159 mg/dL >=20 Declared Medications: Medication list was not provided. For clinical consultation, please call . Last Opioid agreement effective date: 02/18/2022 Please review and advise. Carline Cabrera RN [facility]08-[facility] Miscellaneous Notes* Telephone Encounter - Carline Cabrera RN - 10/03/2023 9:06 AM EDT Patient phones requesting refills as follows: Requested Prescriptions Pending Prescriptions Disp Refills oxyCODONE (ROXICODONE) 15 mg immediate release tablet 90 tablet 0 Sig: Take 1 tablet by mouth three times a day as needed for pain for up to 30 days. Last UDS: No specialty comments available. Summary Report Date Value Ref Range Status 06/09/2023 FINAL Final Comment: Opiate Class, MS, Ur RFX Oxycodone Class, MS, Ur RFX ToxAssure Flex 23, Ur Test Result Flag Units Drug Present Oxycodone 2956 ng/mg creat Oxymorphone 65 ng/mg creat Noroxycodone 3109 ng/mg creat Sources of oxycodone include scheduled prescription medications. Oxymorphone and noroxycodone are expected metabolites of oxycodone. Oxymorphone is also available as a scheduled prescription medication. Test Result Flag Units Ref Range Creatinine 124 mg/dL >=20 Declared Medications: Medication list was not provided. For clinical consultation, please call . No results found for: UQNOTE, OPIATEPNMGT, DRUGSCRPAIN Urine Panel: No results found for: UQCANN, UQBNZL, [id number], UQAMPH, UQMAMP, UQBUPRE, UQNORBUP, UQMTHD, UQEDDP, UQTRAM, UQDTRM, UQFNTL, UQNFTL, UQCODE, UQMORP, UQDCDN, UQHCOD, UQOXYC, UQHMOR, UQOXYM, UQCREA, UQPH, UQSPGR, UQOXID, UQSPQ @FLOW([id number])@ Lab Results Component Value Date SUMM FINAL 06/09/2023 Summary Report (Summary) Date Value Ref Range Status 11/24/2021 FINAL Final Comment: TOXASSURE COMP DRUG ANALYSIS,UR Test Result Flag Units Drug Present Oxycodone 1251 ng/mg creat Oxymorphone 792 ng/mg creat Noroxycodone 3098 ng/mg creat Noroxymorphone 53 ng/mg creat Sources of oxycodone are scheduled prescription medications. Oxymorphone, noroxycodone, and noroxymorphone are expected metabolites of oxycodone. Oxymorphone is also available as a scheduled prescription medication. Duloxetine PRESENT Acetaminophen PRESENT Test Result Flag Units Ref Range Creatinine 159 mg/dL >=20 Declared Medications: Medication list was not provided. For clinical consultation, please call . Last Opioid agreement effective date: 02/18/2022 Please review and advise. Carline Cabrera RN documented in this encounter[facility]08-[facility]24 Telephone encounter Note * Telephone Encounter - Courtney Oh RN - 09/23/2023 9:51 AM EDT Patient phones requesting refills as follows: Requested Prescriptions Pending Prescriptions Disp Refills DULoxetine (CYMBALTA) 60 mg capsule 30 capsule 0 Sig: Take 1 capsule by mouth daily at bedtime. DULoxetine (CYMBALTA) 30 mg capsule 30 capsule 0 Sig: Take 1 capsule by mouth once daily. In am Last UDS: No specialty comments available. Summary Report Date Value Ref Range Status 06/09/2023 FINAL Final Comment: Opiate Class, MS, Ur RFX Oxycodone Class, MS, Ur RFX ToxAssure Flex 23, Ur Test Result Flag Units Drug Present Oxycodone 2956 ng/mg creat Oxymorphone 65 ng/mg creat Noroxycodone 3109 ng/mg creat Sources of oxycodone include scheduled prescription medications. Oxymorphone and noroxycodone are expected metabolites of oxycodone. Oxymorphone is also available as a scheduled prescription medication. Test Result Flag Units Ref Range Creatinine 124 mg/dL >=20 Declared Medications: Medication list was not provided. For clinical consultation, please call . No results found for: UQNOTE, OPIATEPNMGT, DRUGSCRPAIN Urine Panel: No results found for: UQCANN, UQBNZL, [id number], UQAMPH, UQMAMP, UQBUPRE, UQNORBUP, UQMTHD, UQEDDP, UQTRAM, UQDTRM, UQFNTL, UQNFTL, UQCODE, UQMORP, UQDCDN, UQHCOD, UQOXYC, UQHMOR, UQOXYM, UQCREA, UQPH, UQSPGR, UQOXID, UQSPQ @FLOW([id number])@ Lab Results Component Value Date SUMM FINAL 06/09/2023 Summary Report (Summary) Date Value Ref Range Status 11/24/2021 FINAL Final Comment: TOXASSURE COMP DRUG ANALYSIS,UR Test Result Flag Units Drug Present Oxycodone 1251 ng/mg creat Oxymorphone 792 ng/mg creat Noroxycodone 3098 ng/mg creat Noroxymorphone 53 ng/mg creat Sources of oxycodone are scheduled prescription medications. Oxymorphone, noroxycodone, and noroxymorphone are expected metabolites of oxycodone. Oxymorphone is also available as a scheduled prescription medication. Duloxetine PRESENT Acetaminophen PRESENT Test Result Flag Units Ref Range Creatinine 159 mg/dL >=20 Declared Medications: Medication list was not provided. For clinical consultation, please call . Last Opioid agreement effective date: 02/18/2022 Please review and advise. Courtney Oh RN [facility]08-02-[facility]24 Miscellaneous Notes* Telephone Encounter - Courtney Oh RN - 09/23/2023 9:51 AM EDT Patient phones requesting refills as follows: Requested Prescriptions Pending Prescriptions Disp Refills DULoxetine (CYMBALTA) 60 mg capsule 30 capsule 0 Sig: Take 1 capsule by mouth daily at bedtime. DULoxetine (CYMBALTA) 30 mg capsule 30 capsule 0 Sig: Take 1 capsule by mouth once daily. In am Last UDS: No specialty comments available. Summary Report Date Value Ref Range Status 06/09/2023 FINAL Final Comment: Opiate Class, MS, Ur RFX Oxycodone Class, MS, Ur RFX ToxAssure Flex 23, Ur Test Result Flag Units Drug Present Oxycodone 2956 ng/mg creat Oxymorphone 65 ng/mg creat Noroxycodone 3109 ng/mg creat Sources of oxycodone include scheduled prescription medications. Oxymorphone and noroxycodone are expected metabolites of oxycodone. Oxymorphone is also available as a scheduled prescription medication. Test Result Flag Units Ref Range Creatinine 124 mg/dL >=20 Declared Medications: Medication list was not provided. For clinical consultation, please call . No results found for: UQNOTE, OPIATEPNMGT, DRUGSCRPAIN Urine Panel: No results found for: UQCANN, UQBNZL, [id number], UQAMPH, UQMAMP, UQBUPRE, UQNORBUP, UQMTHD, UQEDDP, UQTRAM, UQDTRM, UQFNTL, UQNFTL, UQCODE, UQMORP, UQDCDN, UQHCOD, UQOXYC, UQHMOR, UQOXYM, UQCREA, UQPH, UQSPGR, UQOXID, UQSPQ @FLOW([id number])@ Lab Results Component Value Date SUMM FINAL 06/09/2023 Summary Report (Summary) Date Value Ref Range Status 11/24/2021 FINAL Final Comment: TOXASSURE COMP DRUG ANALYSIS,UR Test Result Flag Units Drug Present Oxycodone 1251 ng/mg creat Oxymorphone 792 ng/mg creat Noroxycodone 3098 ng/mg creat Noroxymorphone 53 ng/mg creat Sources of oxycodone are scheduled prescription medications. Oxymorphone, noroxycodone, and noroxymorphone are expected metabolites of oxycodone. Oxymorphone is also available as a scheduled prescription medication. Duloxetine PRESENT Acetaminophen PRESENT Test Result Flag Units Ref Range Creatinine 159 mg/dL >=20 Declared Medications: Medication list was not provided. For clinical consultation, please call . Last Opioid agreement effective date: 02/18/2022 Please review and advise. Courtney Oh RN documented in [facility] encounter[facility] Emergency department Note * Sydni Drew, [employer]S INTERPRETER-TALENT MANAGEMENT SPECIALIST - 09/11/2023 1:44 PM EDT Chief Complaint Patient presents with Dizziness To ED per AFD squad from home with c/o dizziness while having a BM. She denies any straining or bearing down. She reports that she started having severe abd cramping that made her sweat and anxious. She reports that she recently started taking Ozempic and Metformin. She also reports that her normalbowel routine switches between constipation and diarrhea. EKG done at Patient History No past medical history on file. No past surgical history on file. No family history on file. Social History Social History Narrative Not on file Allergies Allergen Reactions Adhesive Tape-Silicones Hives Clindamycin Hives Erythromycin Base Unknown Penicillins Other, Rash, Swelling and Angioedema PMH: Reviewed PSH: Reviewed Social History: Reviewed. Allergies reviewed. HPI: Taryn Self is a 62 y.o. female who presents to the ED today accompanied by family with complaints of abdominal cramping, dizziness. She was sitting on the toilet at home, having a BM, whenshe started to get severe abdominal cramping and dizziness. She was unable to get up and started tofeel anxious. EMS was called. She normally has soft BMs that alternate with constipation. No recentfever or illness. She recently started taking Ozempic and Metformin. Denies urinary complaints. REVIEW OF SYSTEMS: All other systems reviewed and negative except as listed in HPI. PHYSICAL EXAM: GENERAL: Vitals noted, no distress. Alert and oriented x 3. Non-toxic. EENT: TMs clear. Posterior oropharynx unremarkable. EOMI, no nystagmus noted. NECK: Supple. No masses. No midline tenderness. No meningeal signs. CARDIAC: Regular rate, rhythm. No murmurs rubs or gallops. No JVD. PULMONARY: Lungs clear and equal bilaterally. No wheezes rales or rhonchi. No respiratory distress. ABDOMEN: Soft, nondistended, and minimally tender in the lower abdomen. No peritoneal signs. Bowel sounds are present and normoactive in all 4 quadrants. No pulsatile masses. EXTREMITIES: No peripheral edema. SKIN: No rash. Warm, dry, and intact. NEURO: No focal neurologic deficits. Labs Reviewed COMPREHENSIVE METABOLIC PANEL - Abnormal Result Value Glucose 225 (*) Sodium 135 (*) Potassium 4.4 Chloride 100 Bicarbonate 25 Anion Gap 14 Urea Nitrogen 25 (*) Creatinine 1.20 (*) eGFR 52 (*) Calcium 9.4 Albumin 3.9 Alkaline Phosphatase 134 Total Protein 6.6 AST 27 Bilirubin, Total 0.4 ALT 22 URINALYSIS WITH REFLEX CULTURE AND MICROSCOPIC - Abnormal Color, Urine Colorless (*) Appearance, Urine Clear Specific [place], Urine 1.008 pH, Urine 6.5 Protein, Urine NEGATIVE Glucose, Urine Normal Blood, Urine NEGATIVE Ketones, Urine NEGATIVE Bilirubin, Urine NEGATIVE Urobilinogen, Urine Normal Nitrite, Urine NEGATIVE Leukocyte Esterase, Urine NEGATIVE LIPASE - Normal Lipase 42 Narrative: Venipuncture immediately after or during the administration of Metamizole may lead to falsely low results. Testing should be performed immediately prior to Metamizole dosing. LACTATE - Normal Lactate 2.0 Narrative: Venipuncture immediately after or during the administration of Metamizole may lead to falsely low results. Testing should be performed immediately prior to Metamizole dosing. CBC WITH AUTO DIFFERENTIAL WBC 6.4 nRBC 0.0 RBC 4.80 Hemoglobin 14.2 Hematocrit 43.4 MCV 90 MCH 29.6 MCHC 32.7 RDW 12.8 Platelets 173 Neutrophils % 55.7 Immature Granulocytes %, Automated 0.2 Lymphocytes % 30.4 Monocytes % 6.6 Eosinophils % 5.9 Basophils % 1.2 Neutrophils Absolute 3.57 Immature Granulocytes Absolute, Automated 0.01 Lymphocytes Absolute 1.95 Monocytes Absolute 0.42 Eosinophils Absolute 0.38 Basophils Absolute 0.08 URINALYSIS WITH REFLEX CULTURE AND MICROSCOPIC Narrative: The following orders were created for panel order Urinalysis with Reflex Culture and Microscopic. Procedure Abnormality Status --------- ------ Urinalysis with Reflex Cu...[[id number]] Abnormal Final result Extra Urine Colvin Tube[[id number]] In process Please view results for these tests on the individual orders. EXTRA URINE COLVIN TUBE XR chest 1 view Final Result No acute pulmonary process. MACRO None Signed by: Alexander Hook 09/11/2023 2:31 PM Dictation workstation: [id number] Medical Decision Making Amount and/or Complexity of Data Reviewed Labs: ordered. Radiology: ordered. ECG/medicine tests: ordered. EKG interpreted by myself shows SR with rate of 68. Normal axis. ND interval 160. QRS interval 80. QT interval 384. QTc interval 108. Non-specific ST-T wave changes. No acute ischemia or injury pattern. ED COURSE: This patient was seen and examined by myself independently. She is placed on a continuous tobacco sweeper with pulse oximetry monitoring. Old records and EKGs are obtained and reviewed. IVheplock is established, labs are obtained and noted above. Hydrated with normal saline 1 L bolus. She declined pain medication in the ED. Urinalysis is negative. Lactate normal, lipase normal, CBC with differential normal. CMP with a glucose of 225, BUN and creatinine with slight elevations of 25 and 1.20 today. No priors for comparison. She is up and down to the bathroom several times here in the emergency department, she is not dizzy or lightheaded with movement. Likely had vasovagal responseat home. Encouraged to continue hydration. Encouraged to discuss with her PCP her abdominal cramping and diarrhea, possibly related to her medications that she recently started. E-Rx sent to her pharmacy of choice for Bentyl. Patient verbalized understanding. Discharged home in a stable condition with computer instructions given. Differential Diagnoses Considered: dehydration, vertigo, vasovagal syncope, electrolyte abnormality Chronic Medical Conditions Significantly Affecting Care: see above External Records Reviewed: I reviewed recent and relevant outside records including: PCP notes, prior discharge summary, previous radiologic studies Diagnostic testing considered: blood, urine, CXR, EKG Escalation of Care: Appropriate for outpatient management Prescription Drug Consideration: Bentyl DIAGNOSTIC IMPRESSION: #1 abdominal cramping #2 vasovagal response WILFRED Beaulieu 09/11/23 1540 documented in this [facility] Work Phone: 1(400) 813-382507-21-2024 Physician Emergency department Note* WILFRED Beaulieu - 09/11/2023 1:44 PM EDT Chief Complaint Patient presents with Dizziness To ED per AFD squad from home with c/o dizziness while having a BM. She denies any straining or bearing down. She reports that she started having severe abd cramping that made her sweat and anxious. She reports that she recently started taking Ozempic and Metformin. She also reports that her normalbowel routine switches between constipation and diarrhea. EKG done at Patient History No past medical history on file. No past surgical history on file. No family history on file. Social History Social History Narrative Not on file Allergies Allergen Reactions Adhesive Tape-Silicones Hives Clindamycin Hives Erythromycin Base Unknown Penicillins Other, Rash, Swelling and Angioedema PMH: Reviewed PSH: Reviewed Social History: Reviewed. Allergies reviewed. HPI: Taryn Self is a 62 y.o. female who presents to the ED today accompanied by family with complaints of abdominal cramping, dizziness. She was sitting on the toilet at home, having a BM, whenshe started to get severe abdominal cramping and dizziness. She was unable to get up and started tofeel anxious. EMS was called. She normally has soft BMs that alternate with constipation. No recentfever or illness. She recently started taking Ozempic and Metformin. Denies urinary complaints. REVIEW OF SYSTEMS: All other systems reviewed and negative except as listed in HPI. PHYSICAL EXAM: GENERAL: Vitals noted, no distress. Alert and oriented x 3. Non-toxic. EENT: TMs clear. Posterior oropharynx unremarkable. EOMI, no nystagmus noted. NECK: Supple. No masses. No midline tenderness. No meningeal signs. CARDIAC: Regular rate, rhythm. No murmurs rubs or gallops. No JVD. PULMONARY: Lungs clear and equal bilaterally. No wheezes rales or rhonchi. No respiratory distress. ABDOMEN: Soft, nondistended, and minimally tender in the lower abdomen. No peritoneal signs. Bowel sounds are present and normoactive in all 4 quadrants. No pulsatile masses. EXTREMITIES: No peripheral edema. SKIN: No rash. Warm, dry, and intact. NEURO: No focal neurologic deficits. Labs Reviewed COMPREHENSIVE METABOLIC PANEL - Abnormal Result Value Glucose 225 (*) Sodium 135 (*) Potassium 4.4 Chloride 100 Bicarbonate 25 Anion Gap 14 Urea Nitrogen 25 (*) Creatinine 1.20 (*) eGFR 52 (*) Calcium 9.4 Albumin 3.9 Alkaline Phosphatase 134 Total Protein 6.6 AST 27 Bilirubin, Total 0.4 ALT 22 URINALYSIS WITH REFLEX CULTURE AND MICROSCOPIC - Abnormal Color, Urine Colorless (*) Appearance, Urine Clear Specific [place], Urine 1.008 pH, Urine 6.5 Protein, Urine NEGATIVE Glucose, Urine Normal Blood, Urine NEGATIVE Ketones, Urine NEGATIVE Bilirubin, Urine NEGATIVE Urobilinogen, Urine Normal Nitrite, Urine NEGATIVE Leukocyte Esterase, Urine NEGATIVE LIPASE - Normal Lipase 42 Narrative: Venipuncture immediately after or during the administration of Metamizole may lead to falsely low results. Testing should be performed immediately prior to Metamizole dosing. LACTATE - Normal Lactate 2.0 Narrative: Venipuncture immediately after or during the administration of Metamizole may lead to falsely low results. Testing should be performed immediately prior to Metamizole dosing. CBC WITH AUTO DIFFERENTIAL WBC 6.4 nRBC 0.0 RBC 4.80 Hemoglobin 14.2 Hematocrit 43.4 MCV 90 MCH 29.6 MCHC 32.7 RDW 12.8 Platelets 173 Neutrophils % 55.7 Immature Granulocytes %, Automated 0.2 Lymphocytes % 30.4 Monocytes % 6.6 Eosinophils % 5.9 Basophils % 1.2 Neutrophils Absolute 3.57 Immature Granulocytes Absolute, Automated 0.01 Lymphocytes Absolute 1.95 Monocytes Absolute 0.42 Eosinophils Absolute 0.38 Basophils Absolute 0.08 URINALYSIS WITH REFLEX CULTURE AND MICROSCOPIC Narrative: The following orders were created for panel order Urinalysis with Reflex Culture and Microscopic. Procedure Abnormality Status --------- ------ Urinalysis with Reflex Cu...[[id number]] Abnormal Final result Extra Urine Colvin Tube[[id number]] In process Please view results for these tests on the individual orders. EXTRA URINE COLVIN TUBE XR chest 1 view Final Result No acute pulmonary process. MACRO None Signed by: Alexander Hook 09/11/2023 2:31 PM Dictation workstation: [id number] Medical Decision Making Amount and/or Complexity of Data Reviewed Labs: ordered. Radiology: ordered. ECG/medicine tests: ordered. EKG interpreted by myself shows SR with rate of 68. Normal axis. ND interval 160. QRS interval 80. QT interval 384. QTc interval 108. Non-specific ST-T wave changes. No acute ischemia or injury pattern. ED COURSE: This patient was seen and examined by myself independently. She is placed on a continuous tobacco sweeper with pulse oximetry monitoring. Old records and EKGs are obtained and reviewed. IVheplock is established, labs are obtained and noted above. Hydrated with normal saline 1 L bolus. She declined pain medication in the ED. Urinalysis is negative. Lactate normal, lipase normal, CBC with differential normal. CMP with a glucose of 225, BUN and creatinine with slight elevations of 25 and 1.20 today. No priors for comparison. She is up and down to the bathroom several times here in the emergency department, she is not dizzy or lightheaded with movement. Likely had vasovagal responseat home. Encouraged to continue hydration. Encouraged to discuss with her PCP her abdominal cramping and diarrhea, possibly related to her medications that she recently started. E-Rx sent to her pharmacy of choice for Bentyl. Patient verbalized understanding. Discharged home in a stable condition with computer instructions given. Differential Diagnoses Considered: dehydration, vertigo, vasovagal syncope, electrolyte abnormality Chronic Medical Conditions Significantly Affecting Care: see above External Records Reviewed: I reviewed recent and relevant outside records including: PCP notes, prior discharge summary, previous radiologic studies Diagnostic testing considered: blood, urine, CXR, EKG Escalation of Care: Appropriate for outpatient management Prescription Drug Consideration: Bentyl DIAGNOSTIC IMPRESSION: #1 abdominal cramping #2 vasovagal response WILFRED Beaulieu 09/11/23 1540 [facility] Work Phone: 1(528) 675-247507-18-2024 Telephone encounter Note* Telephone Encounter - Becca Dudley RN - 09/08/2023 11:32 AM EDT Patient phones requesting refills as follows: Requested Prescriptions Pending Prescriptions Disp Refills DULoxetine (CYMBALTA) 60 mg capsule 30 capsule 0 Sig: Take 1 capsule by mouth daily at bedtime. Last UDS: No specialty comments available. Summary Report Date Value Ref Range Status 06/09/2023 FINAL Final Comment: Opiate Class, MS, Ur RFX Oxycodone Class, MS, Ur RFX ToxAssure Flex 23, Ur Test Result Flag Units Drug Present Oxycodone 2956 ng/mg creat Oxymorphone 65 ng/mg creat Noroxycodone 3109 ng/mg creat Sources of oxycodone include scheduled prescription medications. Oxymorphone and noroxycodone are expected metabolites of oxycodone. Oxymorphone is also available as a scheduled prescription medication. Test Result Flag Units Ref Range Creatinine 124 mg/dL >=20 Declared Medications: Medication list was not provided. For clinical consultation, please call . No results found for: UQNOTE, OPIATEPNMGT, DRUGSCRPAIN Urine Panel: No results found for: UQCANN, UQBNZL, [id number], UQAMPH, UQMAMP, UQBUPRE, UQNORBUP, UQMTHD, UQEDDP, UQTRAM, UQDTRM, UQFNTL, UQNFTL, UQCODE, UQMORP, UQDCDN, UQHCOD, UQOXYC, UQHMOR, UQOXYM, UQCREA, UQPH, UQSPGR, UQOXID, UQSPQ @FLOW([id number])@ Lab Results Component Value Date SUMM FINAL 06/09/2023 Summary Report (Summary) Date Value Ref Range Status 11/24/2021 FINAL Final Comment: TOXASSURE COMP DRUG ANALYSIS,UR Test Result Flag Units Drug Present Oxycodone 1251 ng/mg creat Oxymorphone 792 ng/mg creat Noroxycodone 3098 ng/mg creat Noroxymorphone 53 ng/mg creat Sources of oxycodone are scheduled prescription medications. Oxymorphone, noroxycodone, and noroxymorphone are expected metabolites of oxycodone. Oxymorphone is also available as a scheduled prescription medication. Duloxetine PRESENT Acetaminophen PRESENT Test Result Flag Units Ref Range Creatinine 159 mg/dL >=20 Declared Medications: Medication list was not provided. For clinical consultation, please call . Last Opioid agreement effective date: 02/18/2022 Please review and advise. Becca Dudley RN [facility]07-18-2024 Miscellaneous Notes* Telephone Encounter - Becca Dudley RN - 09/08/2023 11:32 AM EDT Patient phones requesting refills as follows: Requested Prescriptions Pending Prescriptions Disp Refills DULoxetine (CYMBALTA) 60 mg capsule 30 capsule 0 Sig: Take 1 capsule by mouth daily at bedtime. Last UDS: No specialty comments available. Summary Report Date Value Ref Range Status 06/09/2023 FINAL Final Comment: Opiate Class, MS, Ur RFX Oxycodone Class, MS, Ur RFX ToxAssure Flex 23, Ur Test Result Flag Units Drug Present Oxycodone 2956 ng/mg creat Oxymorphone 65 ng/mg creat Noroxycodone 3109 ng/mg creat Sources of oxycodone include scheduled prescription medications. Oxymorphone and noroxycodone are expected metabolites of oxycodone. Oxymorphone is also available as a scheduled prescription medication. Test Result Flag Units Ref Range Creatinine 124 mg/dL >=20 Declared Medications: Medication list was not provided. For clinical consultation, please call . No results found for: UQNOTE, OPIATEPNMGT, DRUGSCRPAIN Urine Panel: No results found for: UQCANN, UQBNZL, [id number], UQAMPH, UQMAMP, UQBUPRE, UQNORBUP, UQMTHD, UQEDDP, UQTRAM, UQDTRM, UQFNTL, UQNFTL, UQCODE, UQMORP, UQDCDN, UQHCOD, UQOXYC, UQHMOR, UQOXYM, UQCREA, UQPH, UQSPGR, UQOXID, UQSPQ @FLOW([id number])@ Lab Results Component Value Date SUMM FINAL 06/09/2023 Summary Report (Summary) Date Value Ref Range Status 11/24/2021 FINAL Final Comment: TOXASSURE COMP DRUG ANALYSIS,UR Test Result Flag Units Drug Present Oxycodone 1251 ng/mg creat Oxymorphone 792 ng/mg creat Noroxycodone 3098 ng/mg creat Noroxymorphone 53 ng/mg creat Sources of oxycodone are scheduled prescription medications. Oxymorphone, noroxycodone, and noroxymorphone are expected metabolites of oxycodone. Oxymorphone is also available as a scheduled prescription medication. Duloxetine PRESENT Acetaminophen PRESENT Test Result Flag Units Ref Range Creatinine 159 mg/dL >=20 Declared Medications: Medication list was not provided. For clinical consultation, please call . Last Opioid agreement effective date: 02/18/2022 Please review and advise. Becca Dudley RN [facility] History of Present illness Narrative* Jay Esparza MD - 09/07/2023 9:30 AM EDT Sadia was used to dictate this note and therefore there may be some typographical errors. I attest to the fact that I spent a total of 16 min with the patient to include: Face to face time and non face to face time such as: Reviewing test's, reviewing medical records, reviewing imaging studies, ordering tests, etc. The patient was last seen on 06/09/2023. Treatment plan at that time included the following: Urine drug screen updated. Patient was to continue on Cymbalta, Zanaflex, and oxycodone as prescribed by Dr. Osorio and her staff. Continue using the spinal cord stimulator. Continue to be as active as possible. She returns today for follow-up visit. PE: Alert and oriented no acute distress. Mood and affect within normal limits. Vital signs indicated. No difficulty rising from a chair and or descending into a chair. Dx: Lumbar DDD, lumbar foraminal stenosis, lumbar DJD, lumbar facet arthropathy, lumbar spondylosis, low back pain, lumbar radiculitis, bilateral knee osteoarthritis and bilateral knee pain, gait disturbance, right-sided foot drop, status post spinal cord stimulator, hypertension, hypercholesterolemia,mitral prolapse, obstructive sleep apnea, stage III renal disease, diabetes with diabetic neuropathy, neuropathic pain, chronic pain syndrome, chronic opioid usage. Patient is on the above analgesic regimen. Patient denies any systemic side effects. Patient believes the pain meds have helped (as indicated by VAS). Patient has signed Medication Management Agreement and Informed Consent Form (contract). I have also utilized the Intractable Pain and Drug Prescription Checklist as promulgated by [facility]. Furthermore, I have adhered to the [facility] Administrative Code 4731-11. The medication clearly improves this patient's functionality and quality of life as evidence by improved social, recreational activities. Thereis no evidence of any: drug abuse, drug addiction nor drug diversion. The patient has never called in early for a refill, is not particularly focused on pain medication, has never shown up in our office unexpectedly without appointment, nor called in stating a lost prescription. 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 The patient has been informed that the analgesics are potentially addicting and need to be taken strictly as prescribed. I have checked an OARRS on this patient which came back as expected. The patient has received an opioid education handout and filled out an opioid screener (SOAPP). I have had the patient submit a random urine drug screen & the patient does have biological markers which would corroborate and substantiate chronic pain (see prior imaging studies). Additionally I did discuss Narcan with the patient and informed the patient that Narcan is now available at their pharmacy if they so request. Plan: As above, patient was last seen on 06/09/2023. Treatment plan at that time included the following: Urine drug screen updated. Patient was to continue on Cymbalta, Zanaflex, and oxycodone as prescribed by Dr. Osorio and her staff. Continue using the spinal cord stimulator. Continue to be as active as possible. Patient continues to do well on a combination of Cymbalta, Zanaflex, and oxycodone. No side effects. Compliant usage. Improved functionality on the medication. Follow-up in 3 months. [facility] Telephone encounter Note * Telephone Encounter - Grace Hall RN - 08/08/2023 11:53 AM EDT Patient phones requesting refills as follows: Requested Prescriptions Pending Prescriptions Disp Refills oxyCODONE (ROXICODONE) 15 mg immediate release tablet 90 tablet 0 Sig: Take 1 tablet by mouth three times a day as needed for pain for up to 30 days. Last UDS: No specialty comments available. Summary Report Date Value Ref Range Status 06/09/2023 FINAL Final Comment: Opiate Class, MS, Ur RFX Oxycodone Class, MS, Ur RFX ToxAssure Flex 23, Ur Test Result Flag Units Drug Present Oxycodone 2956 ng/mg creat Oxymorphone 65 ng/mg creat Noroxycodone 3109 ng/mg creat Sources of oxycodone include scheduled prescription medications. Oxymorphone and noroxycodone are expected metabolites of oxycodone. Oxymorphone is also available as a scheduled prescription medication. Test Result Flag Units Ref Range Creatinine 124 mg/dL >=20 Declared Medications: Medication list was not provided. For clinical consultation, please call . No results found for: UQNOTE, OPIATEPNMGT, DRUGSCRPAIN Urine Panel: No results found for: UQCANN, UQBNZL, [id number], UQAMPH, UQMAMP, UQBUPRE, UQNORBUP, UQMTHD, UQEDDP, UQTRAM, UQDTRM, UQFNTL, UQNFTL, UQCODE, UQMORP, UQDCDN, UQHCOD, UQOXYC, UQHMOR, UQOXYM, UQCREA, UQPH, UQSPGR, UQOXID, UQSPQ @FLOW([id number])@ Lab Results Component Value Date SUMM FINAL 06/09/2023 Summary Report (Summary) Date Value Ref Range Status 11/24/2021 FINAL Final Comment: TOXASSURE COMP DRUG ANALYSIS,UR Test Result Flag Units Drug Present Oxycodone 1251 ng/mg creat Oxymorphone 792 ng/mg creat Noroxycodone 3098 ng/mg creat Noroxymorphone 53 ng/mg creat Sources of oxycodone are scheduled prescription medications. Oxymorphone, noroxycodone, and noroxymorphone are expected metabolites of oxycodone. Oxymorphone is also available as a scheduled prescription medication. Duloxetine PRESENT Acetaminophen PRESENT Test Result Flag Units Ref Range Creatinine 159 mg/dL >=20 Declared Medications: Medication list was not provided. For clinical consultation, please call . Last Opioid agreement effective date: 02/18/2022 Please review and advise. Grace Hall RN [place] [id number] Miscellaneous Notes* Telephone Encounter - Grace Hall RN - 08/08/2023 11:53 AM EDT Patient phones requesting refills as follows: Requested Prescriptions Pending Prescriptions Disp Refills oxyCODONE (ROXICODONE) 15 mg immediate release tablet 90 tablet 0 Sig: Take 1 tablet by mouth three times a day as needed for pain for up to 30 days. Last UDS: No specialty comments available. Summary Report Date Value Ref Range Status 06/09/2023 FINAL Final Comment: Opiate Class, MS, Ur RFX Oxycodone Class, MS, Ur RFX ToxAssure Flex 23, Ur Test Result Flag Units Drug Present Oxycodone 2956 ng/mg creat Oxymorphone 65 ng/mg creat Noroxycodone 3109 ng/mg creat Sources of oxycodone include scheduled prescription medications. Oxymorphone and noroxycodone are expected metabolites of oxycodone. Oxymorphone is also available as a scheduled prescription medication. Test Result Flag Units Ref Range Creatinine 124 mg/dL >=20 Declared Medications: Medication list was not provided. For clinical consultation, please call . No results found for: UQNOTE, OPIATEPNMGT, DRUGSCRPAIN Urine Panel: No results found for: UQCANN, UQBNZL, [id number], UQAMPH, UQMAMP, UQBUPRE, UQNORBUP, UQMTHD, UQEDDP, UQTRAM, UQDTRM, UQFNTL, UQNFTL, UQCODE, UQMORP, UQDCDN, UQHCOD, UQOXYC, UQHMOR, UQOXYM, UQCREA, UQPH, UQSPGR, UQOXID, UQSPQ @FLOW([id number])@ Lab Results Component Value Date SUMM FINAL 06/09/2023 Summary Report (Summary) Date Value Ref Range Status 11/24/2021 FINAL Final Comment: TOXASSURE COMP DRUG ANALYSIS,UR Test Result Flag Units Drug Present Oxycodone 1251 ng/mg creat Oxymorphone 792 ng/mg creat Noroxycodone 3098 ng/mg creat Noroxymorphone 53 ng/mg creat Sources of oxycodone are scheduled prescription medications. Oxymorphone, noroxycodone, and noroxymorphone are expected metabolites of oxycodone. Oxymorphone is also available as a scheduled prescription medication. Duloxetine PRESENT Acetaminophen PRESENT Test Result Flag Units Ref Range Creatinine 159 mg/dL >=20 Declared Medications: Medication list was not provided. For clinical consultation, please call . Last Opioid agreement effective date: 02/18/2022 Please review and advise. Grace Hall RN documented in this encounter[facility]06-[facility]24 Telephone encounter Note * Telephone Encounter - Courtney Oh RN - 07/25/2023 10:15 AM EDT Patient phones requesting refills as follows: Requested Prescriptions Pending Prescriptions Disp Refills DULoxetine (CYMBALTA) 60 mg capsule 30 capsule 0 Sig: Take 1 capsule by mouth daily at bedtime. DULoxetine (CYMBALTA) 30 mg capsule 30 capsule 0 Sig: Take 1 capsule by mouth once daily. In am Last UDS: No specialty comments available. Summary Report Date Value Ref Range Status 06/09/2023 FINAL Final Comment: Opiate Class, MS, Ur RFX Oxycodone Class, MS, Ur RFX ToxAssure Flex 23, Ur Test Result Flag Units Drug Present Oxycodone 2956 ng/mg creat Oxymorphone 65 ng/mg creat Noroxycodone 3109 ng/mg creat Sources of oxycodone include scheduled prescription medications. Oxymorphone and noroxycodone are expected metabolites of oxycodone. Oxymorphone is also available as a scheduled prescription medication. Test Result Flag Units Ref Range Creatinine 124 mg/dL >=20 Declared Medications: Medication list was not provided. For clinical consultation, please call . No results found for: UQNOTE, OPIATEPNMGT, DRUGSCRPAIN Urine Panel: No results found for: UQCANN, UQBNZL, [id number], UQAMPH, UQMAMP, UQBUPRE, UQNORBUP, UQMTHD, UQEDDP, UQTRAM, UQDTRM, UQFNTL, UQNFTL, UQCODE, UQMORP, UQDCDN, UQHCOD, UQOXYC, UQHMOR, UQOXYM, UQCREA, UQPH, UQSPGR, UQOXID, UQSPQ @FLOW([id number])@ Lab Results Component Value Date SUMM FINAL 06/09/2023 Summary Report (Summary) Date Value Ref Range Status 11/24/2021 FINAL Final Comment: TOXASSURE COMP DRUG ANALYSIS,UR Test Result Flag Units Drug Present Oxycodone 1251 ng/mg creat Oxymorphone 792 ng/mg creat Noroxycodone 3098 ng/mg creat Noroxymorphone 53 ng/mg creat Sources of oxycodone are scheduled prescription medications. Oxymorphone, noroxycodone, and noroxymorphone are expected metabolites of oxycodone. Oxymorphone is also available as a scheduled prescription medication. Duloxetine PRESENT Acetaminophen PRESENT Test Result Flag Units Ref Range Creatinine 159 mg/dL >=20 Declared Medications: Medication list was not provided. For clinical consultation, please call . Last Opioid agreement effective date: 02/18/2022 Please review and advise. Courtney Oh RN [facility] Miscellaneous Notes* Telephone Encounter - Courtney Oh RN - 07/25/2023 10:15 AM EDT Patient phones requesting refills as follows: Requested Prescriptions Pending Prescriptions Disp Refills DULoxetine (CYMBALTA) 60 mg capsule 30 capsule 0 Sig: Take 1 capsule by mouth daily at bedtime. DULoxetine (CYMBALTA) 30 mg capsule 30 capsule 0 Sig: Take 1 capsule by mouth once daily. In am Last UDS: No specialty comments available. Summary Report Date Value Ref Range Status 06/09/2023 FINAL Final Comment: Opiate Class, MS, Ur RFX Oxycodone Class, MS, Ur RFX ToxAssure Flex 23, Ur Test Result Flag Units Drug Present Oxycodone 2956 ng/mg creat Oxymorphone 65 ng/mg creat Noroxycodone 3109 ng/mg creat Sources of oxycodone include scheduled prescription medications. Oxymorphone and noroxycodone are expected metabolites of oxycodone. Oxymorphone is also available as a scheduled prescription medication. Test Result Flag Units Ref Range Creatinine 124 mg/dL >=20 Declared Medications: Medication list was not provided. For clinical consultation, please call . No results found for: UQNOTE, OPIATEPNMGT, DRUGSCRPAIN Urine Panel: No results found for: UQCANN, UQBNZL, [id number], UQAMPH, UQMAMP, UQBUPRE, UQNORBUP, UQMTHD, UQEDDP, UQTRAM, UQDTRM, UQFNTL, UQNFTL, UQCODE, UQMORP, UQDCDN, UQHCOD, UQOXYC, UQHMOR, UQOXYM, UQCREA, UQPH, UQSPGR, UQOXID, UQSPQ @FLOW([id number])@ Lab Results Component Value Date SUMM FINAL 06/09/2023 Summary Report (Summary) Date Value Ref Range Status 11/24/2021 FINAL Final Comment: TOXASSURE COMP DRUG ANALYSIS,UR Test Result Flag Units Drug Present Oxycodone 1251 ng/mg creat Oxymorphone 792 ng/mg creat Noroxycodone 3098 ng/mg creat Noroxymorphone 53 ng/mg creat Sources of oxycodone are scheduled prescription medications. Oxymorphone, noroxycodone, and noroxymorphone are expected metabolites of oxycodone. Oxymorphone is also available as a scheduled prescription medication. Duloxetine PRESENT Acetaminophen PRESENT Test Result Flag Units Ref Range Creatinine 159 mg/dL >=20 Declared Medications: Medication list was not provided. For clinical consultation, please call . Last Opioid agreement effective date: 02/18/2022 Please review and advise. Courtney Beun, RN documented in this encounterGrant Hospital05-16-2024 Telephone encounter Note * Telephone Encounter - Carline Cabrera RN - 07/07/2023 8:52 AM EDT Patient phones requesting refills as follows: Requested [...] Summary Report Date Value Ref Range Status 06/09/2023 FINAL Final Comment: Opiate Class, MS, Ur RFX Oxycodone Class, MS, Ur RFX ToxAssure Flex 23, Ur Test Result Flag Units Drug Present Oxycodone 2956 ng/mg creat Oxymorphone 65 ng/mg creat Noroxycodone 3109 ng/mg creat Sources of oxycodone include scheduled prescription medications. Oxymorphone and noroxycodone are expected metabolites of oxycodone. Oxymorphone is also available as a scheduled prescription medication. Test Result Flag Units Ref Range Creatinine 124 mg/dL >=20 Declared Medications: Medication list was not provided. For clinical consultation, please call . No results found for: UQNOTE, OPIATEPNMGT, DRUGSCRPAIN Urine Panel: No results found for: UQCANN, UQBNZL, [id number], UQAMPH, UQMAMP, UQBUPRE, UQNORBUP, UQMTHD, UQEDDP, UQTRAM, UQDTRM, UQFNTL, UQNFTL, UQCODE, UQMORP, UQDCDN, UQHCOD, UQOXYC, UQHMOR, UQOXYM, UQCREA, UQPH, UQSPGR, UQOXID, UQSPQ @FLOW([id number])@ Lab Results Component Value Date SUMM FINAL 06/09/2023 Summary Report (Summary) Date Value Ref Range Status 11/24/2021 FINAL Final Comment: TOXASSURE COMP DRUG ANALYSIS,UR Test Result Flag Units Drug Present Oxycodone 1251 ng/mg creat Oxymorphone 792 ng/mg creat Noroxycodone 3098 ng/mg creat Noroxymorphone 53 ng/mg creat Sources of oxycodone are scheduled prescription medications. Oxymorphone, noroxycodone, and noroxymorphone are expected metabolites of oxycodone. Oxymorphone is also available as a scheduled prescription medication. Duloxetine PRESENT Acetaminophen PRESENT Test Result Flag Units Ref Range Creatinine 159 mg/dL >=20 Declared Medications: Medication list was not provided. For clinical consultation, please call . Last Opioid agreement effective date: 02/18/2022 Please review and advise. Carline Cabrera RN [facility] Miscellaneous Notes* Telephone Encounter - Carline Cabrera RN - 07/07/2023 8:52 AM EDT Patient phones requesting refills as follows: Requested [...] Summary Report Date Value Ref Range Status 06/09/2023 FINAL Final Comment: Opiate Class, MS, Ur RFX Oxycodone Class, MS, Ur RFX ToxAssure Flex 23, Ur Test Result Flag Units Drug Present Oxycodone 2956 ng/mg creat Oxymorphone 65 ng/mg creat Noroxycodone 3109 ng/mg creat Sources of oxycodone include scheduled prescription medications. Oxymorphone and noroxycodone are expected metabolites of oxycodone. Oxymorphone is also available as a scheduled prescription medication. Test Result Flag Units Ref Range Creatinine 124 mg/dL >=20 Declared Medications: Medication list was not provided. For clinical consultation, please call . No results found for: UQNOTE, OPIATEPNMGT, DRUGSCRPAIN Urine Panel: No results found for: UQCANN, UQBNZL, [id number], UQAMPH, UQMAMP, UQBUPRE, UQNORBUP, UQMTHD, UQEDDP, UQTRAM, UQDTRM, UQFNTL, UQNFTL, UQCODE, UQMORP, UQDCDN, UQHCOD, UQOXYC, UQHMOR, UQOXYM, UQCREA, UQPH, UQSPGR, UQOXID, UQSPQ @FLOW([id number])@ Lab Results Component Value Date SUMM FINAL 06/09/2023 Summary Report (Summary) Date Value Ref Range Status 11/24/2021 FINAL Final Comment: TOXASSURE COMP DRUG ANALYSIS,UR Test Result Flag Units Drug Present Oxycodone 1251 ng/mg creat Oxymorphone 792 ng/mg creat Noroxycodone 3098 ng/mg creat Noroxymorphone 53 ng/mg creat Sources of oxycodone are scheduled prescription medications. Oxymorphone, noroxycodone, and noroxymorphone are expected metabolites of oxycodone. Oxymorphone is also available as a scheduled prescription medication. Duloxetine PRESENT Acetaminophen PRESENT Test Result Flag Units Ref Range Creatinine 159 mg/dL >=20 Declared Medications: Medication list was not provided. For clinical consultation, please call . Last Opioid agreement effective date: 02/18/2022 Please review and advise. Carline Cabrera RN documented in this encounterGrant Hospital04-18-2024 History of Present illness Narrative* Jay Esparza MD - 06/09/2023 10:00 AM EDT Dragon was used to dictate this note and therefore there may be some typographical errors. I attest to the fact that I spent a total of 16 min with the patient to include: Face to face time and non face to face time such as: Reviewing test's, reviewing medical records, reviewing imaging studies, ordering tests, etc. Patient was last seen on 03/16/2023. This is a first visit for this patient with me. She had been followed by Dr. Osorio and her staff. Treatment plan was as follows: I counseled the patient about weaning off of her opioids if indeed she was going to have surgery in the future, continue on [id number] mg at bedtime, Zanaflex, spinal cord stimulator, and maintained on oxycodone 15 mg 3 times a day. She returns today for follow-up visit. PE: Alert and oriented no acute distress. Mood and affect within normal limits. Vital signs as indicated. Gait is within normal limits. Dx: Lumbar DDD, lumbar foraminal stenosis, lumbar DJD, lumbar facet arthropathy, lumbar spondylosis, low back pain, lumbar radiculitis, bilateral knee osteoarthritis and bilateral knee pain, gait disturbance, right-sided foot drop, status post spinal cord stimulator, hypertension, hypercholesterolemia,mitral prolapse, obstructive sleep apnea, stage III renal disease, diabetes with diabetic neuropathy, neuropathic pain, chronic pain syndrome, chronic opioid usage. Patient is on the above analgesic regimen. Patient denies any systemic side effects. Patient believes the pain meds have helped (as indicated by VAS). Patient has signed Medication Management Agreement and Informed Consent Form (contract). I have also utilized the Intractable Pain and Drug Prescription Checklist as promulgated by [facility]. Furthermore, I have adhered to the [facility] Administrative Code 4731-11. The medication clearly improves this patient's functionality and quality of life as evidence by improved social, recreational activities. Thereis no evidence of any: drug abuse, drug addiction nor drug diversion. The patient has never called in early for a refill, is not particularly focused on pain medication, has never shown up in our office unexpectedly without appointment, nor called in stating a lost prescription. 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 The patient has been informed that the analgesics are potentially addicting and need to be taken strictly as prescribed. I have checked an OARRS on this patient which came back as expected. The patient has received an opioid education handout and filled out an opioid screener (SOAPP). I have had the patient submit a random urine drug screen & the patient does have biological markers which would corroborate and substantiate chronic pain (see prior imaging studies). Additionally I did discuss Narcan with the patient and informed the patient that Narcan is now available at their pharmacy if they so request. Plan: As above, the patient was last seen on 03/16/2023. This is a first visit for this patient with me. She had been followed by Dr. Osorio and her staff. Treatment plan was as follows: I counseled the patient about weaning off of her opioids if indeed she was going to have surgery in the future, continueon duloxetine 30 mg at bedtime, Zanaflex, spinal cord stimulator, and maintained on oxycodone 15 mg 3 times a day. Urine drug screen updated. Continue on Cymbalta, Zanaflex, oxycodone, and continue to use spinal cord stimulator. Continue to be as active as possible. Follow-up in 3 months. documented in this encounterGrant Hospital03-18-2024 Miscellaneous Notes* Telephone Encounter - Carline Cabrera RN - 05/09/2023 9:18 AM EDT Patient phones requesting refills as follows: Requested [...] Ref Range Status 12/06/2022 FINAL Final Comment: Opiate Class, MS, Ur RFX Oxycodone Class, MS, Ur RFX ToxAssure Flex 23, Ur Test Result Flag Units Drug Present Oxycodone 3020 ng/mg creat Oxymorphone 317 ng/mg creat Noroxycodone 2764 ng/mg creat Sources of oxycodone include scheduled prescription medications. Oxymorphone and noroxycodone are expected metabolites of oxycodone. Oxymorphone is also available as a scheduled prescription medication. Test Result Flag Units Ref Range Creatinine 81 mg/dL >=20 Declared Medications: Medication list was not provided. For clinical consultation, please call . No results found for: UQNOTE, OPIATEPNMGT, DRUGSCRPAIN Urine Panel: No results found for: UQCANN, UQBNZL, [id number], UQAMPH, UQMAMP, UQBUPRE, UQNORBUP, UQMTHD, UQEDDP, UQTRAM, UQDTRM, UQFNTL, UQNFTL, UQCODE, UQMORP, UQDCDN, UQHCOD, UQOXYC, UQHMOR, UQOXYM, UQCREA, UQPH, UQSPGR, UQOXID, UQSPQ @FLOW([id number])@ Lab Results Component Value Date SUMM FINAL 12/06/2022 Summary Report (Summary) Date Value Ref Range Status 11/24/2021 FINAL Final Comment: TOXASSURE COMP DRUG ANALYSIS,UR Test Result Flag Units Drug Present Oxycodone 1251 ng/mg creat Oxymorphone 792 ng/mg creat Noroxycodone 3098 ng/mg creat Noroxymorphone 53 ng/mg creat Sources of oxycodone are scheduled prescription medications. Oxymorphone, noroxycodone, and noroxymorphone are expected metabolites of oxycodone. Oxymorphone is also available as a scheduled prescription medication. Duloxetine PRESENT Acetaminophen PRESENT Test Result Flag Units Ref Range Creatinine 159 mg/dL >=20 Declared Medications: Medication list was not provided. For clinical consultation, please call . Last Opioid agreement effective date: 02/18/2022 Please review and advise. Carline Cabrera RN documented in this encounterGrant Hospital02-14-2024 Miscellaneous Notes* Telephone Encounter - Deborah Carline CORRINE Cavazos - 04/06/2023 10:37 AM EST Patient phones requesting refills as follows: Requested [...] Ref Range Status 12/06/2022 FINAL Final Comment: Opiate Class, MS, Ur RFX Oxycodone Class, MS, Ur RFX ToxAssure Flex 23, Ur Test Result Flag Units Drug Present Oxycodone 3020 ng/mg creat Oxymorphone 317 ng/mg creat Noroxycodone 2764 ng/mg creat Sources of oxycodone include scheduled prescription medications. Oxymorphone and noroxycodone are expected metabolites of oxycodone. Oxymorphone is also available as a scheduled prescription medication. Test Result Flag Units Ref Range Creatinine 81 mg/dL >=20 Declared Medications: Medication list was not provided. For clinical consultation, please call . No results found for: UQNOTE, OPIATEPNMGT, DRUGSCRPAIN Urine Panel: No results found for: UQCANN, UQBNZL, [id number], UQAMPH, UQMAMP, UQBUPRE, UQNORBUP, UQMTHD, UQEDDP, UQTRAM, UQDTRM, UQFNTL, UQNFTL, UQCODE, UQMORP, UQDCDN, UQHCOD, UQOXYC, UQHMOR, UQOXYM, UQCREA, UQPH, UQSPGR, UQOXID, UQSPQ @FLOW([id number])@ Lab Results Component Value Date SUMM FINAL 12/06/2022 Summary Report (Summary) Date Value Ref Range Status 11/24/2021 FINAL Final Comment: TOXASSURE COMP DRUG ANALYSIS,UR Test Result Flag Units Drug Present Oxycodone 1251 ng/mg creat Oxymorphone 792 ng/mg creat Noroxycodone 3098 ng/mg creat Noroxymorphone 53 ng/mg creat Sources of oxycodone are scheduled prescription medications. Oxymorphone, noroxycodone, and noroxymorphone are expected metabolites of oxycodone. Oxymorphone is also available as a scheduled prescription medication. Duloxetine PRESENT Acetaminophen PRESENT Test Result Flag Units Ref Range Creatinine 159 mg/dL >=20 Declared Medications: Medication list was not provided. For clinical consultation, please call . Last Opioid agreement effective date: 02/18/2022 Please review and advise. Carline Cabrera RN documented in this encounterGrant Hospital02-05-2024 NotePap Smear Specimen AdequacyFebruary 2023 1:39pmComment.Satisfactory for evaluation. No endocervical component is identified.[facility] A#[id number] [facility]Com[facility] on above:Satisfactory for evaluation. No endocervical component is identified.03-28-2023 NotePap Smear Specimen AdequacyFebruary 2023 1:39pmComment.Satisfactory for evaluation. No endocervical component is identified.[facility] A#[id number] [facility] SystemComment on above:Satisfactory for evaluation. No endocervical component is identified. 01-17-2023 Miscellaneous Notes* Telephone Encounter - Addis Cedillo MA - 01/17/2023 10:54 AM EST Items addressed in this encounter: Prior Authorization Approval for roxicodone 02/21/22-02/20/23 Letter index to chart Able to close encounter. Addis Cedillo MA January 17, 2023 10:55 AM 10:55 AM documented in this encounterGrant Hospital11-27-2023 Miscellaneous Notes* Telephone Encounter - Addis Cedillo MA - 01/17/2023 10:38 AM EST Items addressed in this encounter: Prior Authorization PA submitted for oxyCODONE (ROXICODONE) 15 mg immediate release tablet On cover my meds Rene [id number] Able to close encounter. Addis Cedillo MA January 17, 2023 10:38 AM 10:38 AM documented in this encounterGrant Hospital11-22-2023 Miscellaneous Notes* Telephone Encounter - Brett Pastor APRN.CNP - 01/12/2023 4:02 PM EST The following approved medication requests have been transmitted electronically. Requested Prescriptions Signed Prescriptions Disp Refills oxyCODONE (ROXICODONE) 15 mg immediate release tablet 90 tablet 0 Sig: Take 1 tablet by mouth three times a day as needed for pain for up to 30 days. Authorizing Provider: BRETT PASTOR APRN.CNP * Telephone Encounter - Carline Cabrera RN - 01/10/2023 1:24 PM EST Patient phones requesting refills as follows: Requested Prescriptions Pending Prescriptions Disp Refills oxyCODONE (ROXICODONE) 15 mg immediate release tablet 90 tablet 0 Sig: Take 1 tablet by mouth three times a day as needed for pain for up to 30 days. Last UDS: No specialty comments available. Summary Report Date Value Ref Range Status 12/06/2022 FINAL Final Comment: Opiate Class, MS, Ur RFX Oxycodone Class, MS, Ur RFX ToxAssure Flex 23, Ur Test Result Flag Units Drug Present Oxycodone 3020 ng/mg creat Oxymorphone 317 ng/mg creat Noroxycodone 2764 ng/mg creat Sources of oxycodone include scheduled prescription medications. Oxymorphone and noroxycodone are expected metabolites of oxycodone. Oxymorphone is also available as a scheduled prescription medication. Test Result Flag Units Ref Range Creatinine 81 mg/dL >=20 Declared Medications: Medication list was not provided. For clinical consultation, please call . @FLOW([id number])@ Lab Results Component Value Date SUMM FINAL 12/06/2022 Summary Report (Summary) Date Value Ref Range Status 11/24/2021 FINAL Final Comment: TOXASSURE COMP DRUG ANALYSIS,UR Test Result Flag Units Drug Present Oxycodone 1251 ng/mg creat Oxymorphone 792 ng/mg creat Noroxycodone 3098 ng/mg creat Noroxymorphone 53 ng/mg creat Sources of oxycodone are scheduled prescription medications. Oxymorphone, noroxycodone, and noroxymorphone are expected metabolites of oxycodone. Oxymorphone is also available as a scheduled prescription medication. Duloxetine PRESENT Acetaminophen PRESENT Test Result Flag Units Ref Range Creatinine 159 mg/dL >=20 Declared Medications: Medication list was not provided. For clinical consultation, please call . Please review and advise. Carline Cabrera RN documented in this encounterGrant Hospital11-12-2023 Miscellaneous Notes* Telephone Encounter - Génesis Osorio DO - 01/02/2023 5:41 PM EST The following approved medication requests have been transmitted electronically. Requested Prescriptions Pending Prescriptions Disp Refills DULoxetine (CYMBALTA) 30 mg capsule 30 capsule 0 Sig: Take 1 capsule by mouth once daily. In am DULoxetine (CYMBALTA) 60 mg capsule 30 capsule 0 Sig: Take 1 capsule by mouth daily at bedtime. Génesis Osorio DO * Telephone Encounter - Carline Cabrera RN - 12/30/2022 9:57 AM EST Patient phones requesting refills as follows: Requested [...] Ref Range Status 12/06/2022 FINAL Final Comment: Opiate Class, MS, Ur RFX Oxycodone Class, MS, Ur RFX ToxAssure Flex 23, Ur Test Result Flag Units Drug Present Oxycodone 3020 ng/mg creat Oxymorphone 317 ng/mg creat Noroxycodone 2764 ng/mg creat Sources of oxycodone include scheduled prescription medications. Oxymorphone and noroxycodone are expected metabolites of oxycodone. Oxymorphone is also available as a scheduled prescription medication. Test Result Flag Units Ref Range Creatinine 81 mg/dL >=20 Declared Medications: Medication list was not provided. For clinical consultation, please call . @FLOW([id number])@ Lab Results Component Value Date SUMM FINAL 12/06/2022 Summary Report (Summary) Date Value Ref Range Status 11/24/2021 FINAL Final Comment: TOXASSURE COMP DRUG ANALYSIS,UR Test Result Flag Units Drug Present Oxycodone 1251 ng/mg creat Oxymorphone 792 ng/mg creat Noroxycodone 3098 ng/mg creat Noroxymorphone 53 ng/mg creat Sources of oxycodone are scheduled prescription medications. Oxymorphone, noroxycodone, and noroxymorphone are expected metabolites of oxycodone. Oxymorphone is also available as a scheduled prescription medication. Duloxetine PRESENT Acetaminophen PRESENT Test Result Flag Units Ref Range Creatinine 159 mg/dL >=20 Declared Medications: Medication list was not provided. For clinical consultation, please call . Please review and advise. Carline Cabrera RN documented in this encounterGrant Hospital10-22-2023 Miscellaneous Notes* Telephone Encounter - Génesis Osorio DO - 12/12/2022 9:43 PM EDT The following approved medication requests have been transmitted electronically. Requested Prescriptions Pending Prescriptions Disp Refills DULoxetine (CYMBALTA) 60 mg capsule 30 capsule 0 Sig: Take 1 capsule by mouth daily at bedtime. Génesis Osorio DO * Telephone Encounter - Becca Dudley RN - 12/10/2022 12:38 PM EDT Last office note does not list duloxetine 60, previously order at hs and 30 in am, please advise Becca Dudley RN December 10, 2022 12:40 PM documented in this encounterGrant Hospital10-16-2023 Instructions* Patient Instructions* Génesis Osorio DO - 12/06/2022 10:46 AM EDT Continue [...] months Follow-up in 3 months with or PRODUCT SAFETY CONSULTANT Try to wear right foot drop brace more consistently for fall prevention. documented in this encounterGrant Hospital10-16-2023 History of Present illness Narrative* Génesis Osorio DO - 12/06/2022 10:30 AM EDTSummary: Pain Management follow-up DATE: December 06, 2022 Chief Complaint: Lower back pain History of Present Illness: Taryn Self is a 62 year old female being seen at [facility] for a evaluation [...] Follow-up in 3 months in office with PRODUCT SAFETY CONSULTANT Start daily stretching/exercises as tolerated Schedule Synvisc [...] Ref Range Status 04/20/2022 FINAL Final Comment: Opiate Class, MS, Ur RFX Oxycodone Class, MS, Ur RFX ToxAssure Flex 23, Ur Test Result Flag Units Drug Present Oxycodone 3383 ng/mg creat Oxymorphone 1708 ng/mg creat Noroxycodone 4840 ng/mg creat Noroxymorphone 136 ng/mg creat Sources of oxycodone are scheduled prescription medications. Oxymorphone, noroxycodone, and noroxymorphone are expected metabolites of oxycodone. Oxymorphone is also available as a scheduled prescription medication. Test Result Flag Units Ref Range Creatinine 159 mg/dL >=20 Declared Medications: Medication list was not provided. For clinical consultation, please call . Summary Report (Summary) Date Value Ref Range Status 11/24/2021 FINAL Final Comment: TOXASSURE COMP DRUG ANALYSIS,UR Test Result Flag Units Drug Present Oxycodone 1251 ng/mg creat Oxymorphone 792 ng/mg creat Noroxycodone 3098 ng/mg creat Noroxymorphone 53 ng/mg creat Sources of oxycodone are scheduled prescription medications. Oxymorphone, noroxycodone, and noroxymorphone are expected metabolites of oxycodone. Oxymorphone is also available as a scheduled prescription medication. Duloxetine PRESENT Acetaminophen PRESENT Test Result Flag Units Ref Range Creatinine 159 mg/dL >=20 Declared Medications: Medication list was not provided. For clinical consultation, please call . Chronic Pain Functional Assessment Tools Pain Disability [...] and legs bilaterally. Positive for sciatica symptoms. PAST MEDICAL HISTORY Diagnosis Date Constipation Depression [...] Chronic pain is persistent. Medications are helping Taryn Self to have an improved quality of [...] medications will be continued. Scribed for Génesis Osorio DO, by Tiffani Casas medical director of hospice, December 06, 2022. documented in this encounterGrant [facility]09-19-2023 Miscellaneous Notes* Telephone Encounter - Estephania Rondon APRN.CNP - 11/09/2022 4:51 PM EDT The following approved medication requests have been [...] In am Authorizing Provider: ESTEPHANIA RONDON APRN.CNP * Telephone Encounter - Carline Cabrera RN - 11/08/2022 10:27 AM EDT Patient phones requesting refills as follows: Requested [...] Ref Range Status 04/20/2022 FINAL Final Comment: Opiate Class, MS, Ur RFX Oxycodone Class, MS, Ur RFX ToxAssure Flex 23, Ur Test Result Flag Units Drug Present Oxycodone 3383 ng/mg creat Oxymorphone 1708 ng/mg creat Noroxycodone 4840 ng/mg creat Noroxymorphone 136 ng/mg creat Sources of oxycodone are scheduled prescription medications. Oxymorphone, noroxycodone, and noroxymorphone are expected metabolites of oxycodone. Oxymorphone is also available as a scheduled prescription medication. Test Result Flag Units Ref Range Creatinine 159 mg/dL >=20 Declared Medications: Medication list was not provided. For clinical consultation, please call . @FLOW([id number])@ Lab Results Component Value Date SUMM FINAL 04/20/2022 Summary Report (Summary) Date Value Ref Range Status 11/24/2021 FINAL Final Comment: TOXASSURE COMP DRUG ANALYSIS,UR Test Result Flag Units Drug Present Oxycodone 1251 ng/mg creat Oxymorphone 792 ng/mg creat Noroxycodone 3098 ng/mg creat Noroxymorphone 53 ng/mg creat Sources of oxycodone are scheduled prescription medications. Oxymorphone, noroxycodone, and noroxymorphone are expected metabolites of oxycodone. Oxymorphone is also available as a scheduled prescription medication. Duloxetine PRESENT Acetaminophen PRESENT Test Result Flag Units Ref Range Creatinine 159 mg/dL >=20 Declared Medications: Medication list was not provided. For clinical consultation, please call . Please review and advise. Carline Cabrera RN documented in this encounterGrant Hospital08-19-2023 Miscellaneous Notes* Telephone Encounter - Génesis Osorio DO - 10/09/2022 7:00 PM EDT The following approved medication requests have been [...] capsule by mouth daily at bedtime. Génesis Osorio DO * Telephone Encounter - Becca Dudley RN - 10/08/2022 11:42 AM EDT Patient phones requesting refills as follows: Requested [...] Ref Range Status 04/20/2022 FINAL Final Comment: Opiate Class, MS, Ur RFX Oxycodone Class, MS, Ur RFX ToxAssure Flex 23, Ur Test Result Flag Units Drug Present Oxycodone 3383 ng/mg creat Oxymorphone 1708 ng/mg creat Noroxycodone 4840 ng/mg creat Noroxymorphone 136 ng/mg creat Sources of oxycodone are scheduled prescription medications. Oxymorphone, noroxycodone, and noroxymorphone are expected metabolites of oxycodone. Oxymorphone is also available as a scheduled prescription medication. Test Result Flag Units Ref Range Creatinine 159 mg/dL >=20 Declared Medications: Medication list was not provided. For clinical consultation, please call . @FLOW([id number])@ Lab Results Component Value Date SUMM FINAL 04/20/2022 Summary Report (Summary) Date Value Ref Range Status 11/24/2021 FINAL Final Comment: TOXASSURE COMP DRUG ANALYSIS,UR Test Result Flag Units Drug Present Oxycodone 1251 ng/mg creat Oxymorphone 792 ng/mg creat Noroxycodone 3098 ng/mg creat Noroxymorphone 53 ng/mg creat Sources of oxycodone are scheduled prescription medications. Oxymorphone, noroxycodone, and noroxymorphone are expected metabolites of oxycodone. Oxymorphone is also available as a scheduled prescription medication. Duloxetine PRESENT Acetaminophen PRESENT Test Result Flag Units Ref Range Creatinine 159 mg/dL >=20 Declared Medications: Medication list was not provided. For clinical consultation, please call . Please review and advise. Becca Dudley RN documented in this encounterGrant Hospital07-31-2023 Instructions* Patient Instructions* Génesis Osorio DO - 09/20/2022 11:09 AM EDT Continue duloxetine 30 mg tablet once at bedtime Continue zanaflex Continue SCS use as needed. Continue oxycodone 15 mg one tab tid prn. Avoid NSAIDs use. 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 The patient was last seen in the office by Dr. Osorio on 05/24/2022 and the plan of care was as follows: Continue duloxetine Continue zanaflex Continue SCS use as needed. Continue oxycodone 15mg one tab tid prn. OARRS reviewed and consistent. Continue diet efforts No NSAIDs use. Start Lidocaine/prilocaine topical cream prn Wear right wrist splint for carpal tunnel symptoms Followup in 3 months in office with Dr. Osorio. She had a right knee gel injection almost 2 years ago and had 80% relief that lasted for about 4 years. The Gabapentin was restarted at the last office visit and she reports she is not active at [facility] to her pain. We discussed daily exercises [...] Ref Range Status 04/20/2022 FINAL Final Comment: Opiate Class, MS, Ur RFX Oxycodone Class, MS, Ur RFX ToxAssure Flex 23, Ur Test Result Flag Units Drug Present Oxycodone 3383 ng/mg creat Oxymorphone 1708 ng/mg creat Noroxycodone 4840 ng/mg creat Noroxymorphone 136 ng/mg creat Sources of oxycodone are scheduled prescription medications. Oxymorphone, noroxycodone, and noroxymorphone are expected metabolites of oxycodone. Oxymorphone is also available as a scheduled prescription medication. Test Result Flag Units Ref Range Creatinine 159 mg/dL >=20 Declared Medications: Medication list was not provided. For clinical consultation, please call . Summary Report (Summary) Date Value Ref Range Status 11/24/2021 FINAL Final Comment: TOXASSURE COMP DRUG ANALYSIS,UR Test Result Flag Units Drug Present Oxycodone 1251 ng/mg creat Oxymorphone 792 ng/mg creat Noroxycodone 3098 ng/mg creat Noroxymorphone 53 ng/mg creat Sources of oxycodone are scheduled prescription medications. Oxymorphone, noroxycodone, and noroxymorphone are expected metabolites of oxycodone. Oxymorphone is also available as a scheduled prescription medication. Duloxetine PRESENT Acetaminophen PRESENT Test Result Flag Units Ref Range Creatinine 159 mg/dL >=20 Declared Medications: Medication list was not provided. For clinical consultation, please call . Chronic Pain Functional Assessment Tools Pain Disability [...] diarrhea. MUSCULOSKELETAL: generalized body pain, right knee PAST MEDICAL HISTORY Diagnosis Date Constipation Depression [...] Chronic pain is persistent. Medications are helping Taryn Self to have an improved quality of life. Patient compliance with Opioid Contract: patient is compliant PDMP website checked and validated. OARRS report reviewed on September 20, 2022 by Divine Wright andis consistent with the patients medical history and [...] encounter was entered by Divine Wright, medical director of hospice for Dr. Génesis Osorio on September 20, 2022. I, Dr. Génesis Osorio, personally performed the services described in this documentation. All medical record entries made by the scribe were at my direction and in my presence. I have reviewed the chart and discharge instructions and agree that the record reflects my personal performance and is accurate and complete. Electronically Signed: Dr. Osorio. September 20, 2022. documented in this encounterGrant Hospital07-19-2023 Miscellaneous Notes* Telephone Encounter - Rosie Tello APRN.RUBBER PROCESS HAND - 09/08/2022 11:49 AM EDT The following approved medication requests have been transmitted electronically. Requested Prescriptions Signed Prescriptions Disp Refills DULoxetine (CYMBALTA) 30 mg capsule 30 capsule 0 Sig: Take 1 capsule by mouth once daily. In am Authorizing Provider: ROSIE TELLO DULoxetine (CYMBALTA) 60 mg capsule 30 capsule 0 Sig: Take 1 capsule by mouth daily at bedtime. Authorizing Provider: ROSIE TELLO oxyCODONE (ROXICODONE) 15 mg immediate release tablet 90 tablet 0 Sig: Take 1 tablet by mouth three times daily as needed for pain for up to 30 days. Do not start before September 11, 2022. Authorizing Provider: ROSIE TELLO APRN.RUBBER PROCESS HAND * Telephone Encounter - Carline Cabrera RN - 09/08/2022 9:17 AM EDT Patient phones requesting refills as follows: Requested [...] Ref Range Status 04/20/2022 FINAL Final Comment: Opiate Class, MS, Ur RFX Oxycodone Class, MS, Ur RFX ToxAssure Flex 23, Ur Test Result Flag Units Drug Present Oxycodone 3383 ng/mg creat Oxymorphone 1708 ng/mg creat Noroxycodone 4840 ng/mg creat Noroxymorphone 136 ng/mg creat Sources of oxycodone are scheduled prescription medications. Oxymorphone, noroxycodone, and noroxymorphone are expected metabolites of oxycodone. Oxymorphone is also available as a scheduled prescription medication. Test Result Flag Units Ref Range Creatinine 159 mg/dL >=20 Declared Medications: Medication list was not provided. For clinical consultation, please call . @FLOW([id number])@ Lab Results Component Value Date SUMM FINAL 04/20/2022 Summary Report (Summary) Date Value Ref Range Status 11/24/2021 FINAL Final Comment: TOXASSURE COMP DRUG ANALYSIS,UR Test Result Flag Units Drug Present Oxycodone 1251 ng/mg creat Oxymorphone 792 ng/mg creat Noroxycodone 3098 ng/mg creat Noroxymorphone 53 ng/mg creat Sources of oxycodone are scheduled prescription medications. Oxymorphone, noroxycodone, and noroxymorphone are expected metabolites of oxycodone. Oxymorphone is also available as a scheduled prescription medication. Duloxetine PRESENT Acetaminophen PRESENT Test Result Flag Units Ref Range Creatinine 159 mg/dL >=20 Declared Medications: Medication list was not provided. For clinical consultation, please call . Please review and advise. Carline Cabrera RN documented in this encounterGrant Hospital06-19-2023 Miscellaneous Notes* Telephone Encounter - Rosie Tello APRN.CNS - 08/09/2022 11:33 AM EDT The following approved medication requests have been transmitted electronically. Requested Prescriptions Signed Prescriptions Disp Refills DULoxetine (CYMBALTA) 30 mg capsule 30 capsule 0 Sig: Take 1 capsule by mouth once daily. In am Authorizing Provider: ROSIE TELLO DULoxetine (CYMBALTA) 60 mg capsule 30 capsule 0 Sig: Take 1 capsule by mouth daily at bedtime. Authorizing Provider: ROSIE TELLO oxyCODONE (ROXICODONE) 15 mg immediate release tablet 90 tablet 0 Sig: Take 1 tablet by mouth three times daily as needed for pain for up to 30 days. Do not start before August 12, 2022. Authorizing Provider: ROSIE TELLO APRN.CNS * Telephone Encounter - Sho Gates RN - 08/09/2022 11:31 AM EDT Patient phones requesting refills as follows: Requested [...] Ref Range Status 04/20/2022 FINAL Final Comment: Opiate Class, MS, Ur RFX Oxycodone Class, MS, Ur RFX ToxAssure Flex 23, Ur Test Result Flag Units Drug Present Oxycodone 3383 ng/mg creat Oxymorphone 1708 ng/mg creat Noroxycodone 4840 ng/mg creat Noroxymorphone 136 ng/mg creat Sources of oxycodone are scheduled prescription medications. Oxymorphone, noroxycodone, and noroxymorphone are expected metabolites of oxycodone. Oxymorphone is also available as a scheduled prescription medication. Test Result Flag Units Ref Range Creatinine 159 mg/dL >=20 Declared Medications: Medication list was not provided. For clinical consultation, please call . @FLOW([id number])@ Lab Results Component Value Date SUMM FINAL 04/20/2022 Summary Report (Summary) Date Value Ref Range Status 11/24/2021 FINAL Final Comment: TOXASSURE COMP DRUG ANALYSIS,UR Test Result Flag Units Drug Present Oxycodone 1251 ng/mg creat Oxymorphone 792 ng/mg creat Noroxycodone 3098 ng/mg creat Noroxymorphone 53 ng/mg creat Sources of oxycodone are scheduled prescription medications. Oxymorphone, noroxycodone, and noroxymorphone are expected metabolites of oxycodone. Oxymorphone is also available as a scheduled prescription medication. Duloxetine PRESENT Acetaminophen PRESENT Test Result Flag Units Ref Range Creatinine 159 mg/dL >=20 Declared Medications: Medication list was not provided. For clinical consultation, please call . Please review and advise. Sho Gates RN documented in this encounterGrant Hospital04-19-2023 Miscellaneous Notes* Telephone Encounter - Génesis Osorio DO - 06/09/2022 12:54 PM EDT The following approved medication requests have been transmitted electronically. Requested Prescriptions Pending Prescriptions Disp Refills DULoxetine (CYMBALTA) 30 mg capsule 30 capsule 0 Sig: Take 1 capsule by mouth once daily. In am DULoxetine (CYMBALTA) 60 mg capsule 30 capsule 0 Sig: Take 1 capsule by mouth daily at bedtime. Génesis Osorio DO * Telephone Encounter - Sho Gates RN - 06/09/2022 12:37 PM EDT Patient phones requesting refills as follows: Requested Prescriptions Pending Prescriptions Disp Refills DULoxetine (CYMBALTA) 30 mg capsule 30 capsule 0 Sig: Take 1 capsule by mouth once daily. In am DULoxetine (CYMBALTA) 60 mg capsule 30 capsule 0 Sig: Take 1 capsule by mouth daily at bedtime. Last UDS: Summary Report Date Value Ref Range Status 04/20/2022 FINAL Final Comment: Opiate Class, MS, Ur RFX Oxycodone Class, MS, Ur RFX ToxAssure Flex 23, Ur Test Result Flag Units Drug Present Oxycodone 3383 ng/mg creat Oxymorphone 1708 ng/mg creat Noroxycodone 4840 ng/mg creat Noroxymorphone 136 ng/mg creat Sources of oxycodone are scheduled prescription medications. Oxymorphone, noroxycodone, and noroxymorphone are expected metabolites of oxycodone. Oxymorphone is also available as a scheduled prescription medication. Test Result Flag Units Ref Range Creatinine 159 mg/dL >=20 Declared Medications: Medication list was not provided. For clinical consultation, please call . @FLOW([id number])@ Lab Results Component Value Date SUMM FINAL 04/20/2022 Summary Report (Summary) Date Value Ref Range Status 11/24/2021 FINAL Final Comment: TOXASSURE COMP DRUG ANALYSIS,UR Test Result Flag Units Drug Present Oxycodone 1251 ng/mg creat Oxymorphone 792 ng/mg creat Noroxycodone 3098 ng/mg creat Noroxymorphone 53 ng/mg creat Sources of oxycodone are scheduled prescription medications. Oxymorphone, noroxycodone, and noroxymorphone are expected metabolites of oxycodone. Oxymorphone is also available as a scheduled prescription medication. Duloxetine PRESENT Acetaminophen PRESENT Test Result Flag Units Ref Range Creatinine 159 mg/dL >=20 Declared Medications: Medication list was not provided. For clinical consultation, please call . Please review and advise. Sho Gates RN documented in this encounterGrant Hospital04-03-2023 History of Present illness Narrative* Génesis Osorio, - 05/24/2022 3:15 PM EDTSummary: Pain Management follow-up DATE: May 24, 2022 Chief Complaint: Generalized body pain, right hand pain History of Present Illness: Taryn Self is a 61 year old female being seen at [facility] for a evaluation and/or management of their chronic pain. The patient was last seen in the office by Dr. Osorio on 04/19/2022 and the plan of care was as follows: Continue duloxetine Continue zanaflex Continue SCS use as needed. Continue oxycodone 15mg one tab tid prn. OARRS reviewed and consistent. Continue diet efforts No NSAIDs use. Start Lidocaine/prilocaine topical cream prn Followup in 2 to 3 months in office with Dr. Osorio. Please She gets 50% relief with the [...] Ref Range Status 04/20/2022 FINAL Final Comment: Opiate Class, MS, Ur RFX Oxycodone Class, MS, Ur RFX ToxAssure Flex 23, Ur Test Result Flag Units Drug Present Oxycodone 3383 ng/mg creat Oxymorphone 1708 ng/mg creat Noroxycodone 4840 ng/mg creat Noroxymorphone 136 ng/mg creat Sources of oxycodone are scheduled prescription medications. Oxymorphone, noroxycodone, and noroxymorphone are expected metabolites of oxycodone. Oxymorphone is also available as a scheduled prescription medication. Test Result Flag Units Ref Range Creatinine 159 mg/dL >=20 Declared Medications: Medication list was not provided. For clinical consultation, please call . Summary Report (Summary) Date Value Ref Range Status 11/24/2021 FINAL Final Comment: TOXASSURE COMP DRUG ANALYSIS,UR Test Result Flag Units Drug Present Oxycodone 1251 ng/mg creat Oxymorphone 792 ng/mg creat Noroxycodone 3098 ng/mg creat Noroxymorphone 53 ng/mg creat Sources of oxycodone are scheduled prescription medications. Oxymorphone, noroxycodone, and noroxymorphone are expected metabolites of oxycodone. Oxymorphone is also available as a scheduled prescription medication. Duloxetine PRESENT Acetaminophen PRESENT Test Result Flag Units Ref Range Creatinine 159 mg/dL >=20 Declared Medications: Medication list was not provided. For clinical consultation, please call . Chronic Pain Functional Assessment Tools Pain Disability [...] pain. Generalized body pain, right hand pain PAST MEDICAL HISTORY Diagnosis Date Constipation Depression [...] Chronic pain is persistent. Medications are helping Taryn Self to have an improved quality of life. Patient compliance with Opioid Contract: patient is compliant PDMP website checked and validated. OARRS report reviewed on May 24, 2022 by Divine Wright andis consistent with the patients medical history and [...] for this encounter was entered by Divine Wright medical director of hospice, for Dr. Génesis Osorio on May 24, 2022. I, Dr. Génesis Osorio, personally performed the services described in this documentation. All medical record entries made by the scribe were at my direction and in my presence. I have reviewed the chart and discharge instructions and agree that the record reflects my personal performance and is accurate and complete. Electronically Signed: Dr. Osorio. May 24, 2022 documented in this encounterGrant Hospital04-03-2023 Instructions* Patient Instructions* Génesis Osorio DO - 05/24/2022 2:55 PM EDT Continue duloxetine Continue zanaflex Continue SCS use as needed. Continue oxycodone 15mg one tab tid prn. OARRS reviewed and consistent. Continue diet efforts No NSAIDs use. Start Lidocaine/prilocaine topical cream prn Wear right wrist splint for carpal tunnel symptoms Followup in 3 months in office with Dr. Osorio. documented in this encounterGrant Hospital03-22-2023 Miscellaneous Notes* Telephone Encounter - Génesis Osorio DO - 05/12/2022 10:36 AM EDT The following approved medication requests have been [...] capsule by mouth once daily. In am Génesis Osorio DO * Telephone Encounter - Carline Cabrera RN - 05/10/2022 2:38 PM EDT Patient phones requesting refills as follows: Requested [...] Ref Range Status 04/20/2022 FINAL Final Comment: Opiate Class, MS, Ur RFX Oxycodone Class, MS, Ur RFX ToxAssure Flex 23, Ur Test Result Flag Units Drug Present Oxycodone 3383 ng/mg creat Oxymorphone 1708 ng/mg creat Noroxycodone 4840 ng/mg creat Noroxymorphone 136 ng/mg creat Sources of oxycodone are scheduled prescription medications. Oxymorphone, noroxycodone, and noroxymorphone are expected metabolites of oxycodone. Oxymorphone is also available as a scheduled prescription medication. Test Result Flag Units Ref Range Creatinine 159 mg/dL >=20 Declared Medications: Medication list was not provided. For clinical consultation, please call . @FLOW([id number])@ Lab Results Component Value Date SUMM FINAL 04/20/2022 Summary Report (Summary) Date Value Ref Range Status 11/24/2021 FINAL Final Comment: TOXASSURE COMP DRUG ANALYSIS,UR Test Result Flag Units Drug Present Oxycodone 1251 ng/mg creat Oxymorphone 792 ng/mg creat Noroxycodone 3098 ng/mg creat Noroxymorphone 53 ng/mg creat Sources of oxycodone are scheduled prescription medications. Oxymorphone, noroxycodone, and noroxymorphone are expected metabolites of oxycodone. Oxymorphone is also available as a scheduled prescription medication. Duloxetine PRESENT Acetaminophen PRESENT Test Result Flag Units Ref Range Creatinine 159 mg/dL >=20 Declared Medications: Medication list was not provided. For clinical consultation, please call . Please review and advise. Carline Cabrera RN documented in this encounterGrant Hospital02-27-2023 Instructions* Patient Instructions* Génesis Osorio DO - 04/19/2022 3:56 PM EST Continue duloxetine Continue zanaflex Continue SCS use as needed. Continue oxycodone 15mg one tab tid prn. OARRS reviewed and consistent. Continue diet efforts No NSAIDs use. Start Lidocaine/prilocaine topical cream prn Followup in 2 to 3 months in office with Dr. Osorio. Please coordinate appointment with . documented in this encounterGrant Hospital02-27-2023 History of Present illness Narrative* Génesis Osorio DO - 04/19/2022 3:30 PM ESTSummary: Pain Management follow-up DATE: April 19, 2022 Chief Complaint: Generalized body pains History of Present Illness: Taryn Self is a 61 year old female being seen at [facility] for a evaluation and/or management of their chronic pain. Patient was last seen in the office on02/18/2022 and the plan of care was as [...] behind her right knee and follows with Orthopedics.She recently had a cortisone injection which only [...] Ref Range Status 11/24/2021 FINAL Final Comment: TOXASSURE COMP DRUG ANALYSIS,UR Test Result Flag Units Drug Present Oxycodone 1251 ng/mg creat Oxymorphone 792 ng/mg creat Noroxycodone 3098 ng/mg creat Noroxymorphone 53 ng/mg creat Sources of oxycodone are scheduled prescription medications. Oxymorphone, noroxycodone, and noroxymorphone are expected metabolites of oxycodone. Oxymorphone is also available as a scheduled prescription medication. Duloxetine PRESENT Acetaminophen PRESENT Test Result Flag Units Ref Range Creatinine 159 mg/dL >=20 Declared Medications: Medication list was not provided. For clinical consultation, please call . Chronic Pain Functional Assessment Tools Pain Disability [...] pain or muscle pain. Generalized body pains. PAST MEDICAL HISTORY Diagnosis Date Constipation Depression [...] Chronic pain is persistent. Medications are helping Taryn Self to have an improved quality of life. Patient compliance with Opioid Contract: patient is compliant PDMP website checked and validated. OARRS report reviewed on April 19, 2022 by Divine Reynolds is consistent with the patients medical history [...] encounter was entered by Divine Wright, medical director of hospice, for Dr. Génesis Osorio on April 19, 2022. I, Dr. Génesis Osorio, personally performed the services described in this documentation. All medical record entries made by the scribe were at my direction and in my presence. I have reviewed the chart and discharge instructions and agree that the record reflects my personal performance and is accurate and complete. Electronically Signed: Dr. Osorio. April 19, 2022. documented in this encounterGrant [facility]02-17-[facility]23 Miscellaneous Notes* Telephone Encounter - Rosie Tello APRN.RUBBER PROCESS HAND - 04/09/2022 11:57 AM EST The following approved medication requests have been transmitted electronically. Requested Prescriptions Signed Prescriptions Disp Refills oxyCODONE (ROXICODONE) 15 mg immediate release tablet 90 tablet 0 Sig: Take 1 tablet by mouth three times daily as needed for pain for up to 30 days. Do not start before April 14, 2022. Authorizing Provider: ROSIE TELLO DULoxetine (CYMBALTA) 60 mg capsule 30 capsule 0 Sig: Take 1 capsule by mouth once daily. At hs Authorizing Provider: ROSIE TELLO DULoxetine (CYMBALTA) 30 mg capsule 30 capsule 0 Sig: Take 1 capsule by mouth once daily. In am Authorizing Provider: ROSIE TELLO APRN.RUBBER PROCESS HAND * Telephone Encounter - Sho Gates RN - 04/09/2022 9:26 AM EST Patient phones requesting refills as follows: Requested [...] Last UDS: No results found for: SUMM @FLOW([id number])@ No results found for: SUMM Summary Report (Summary) Date Value Ref Range Status 11/24/2021 FINAL Final Comment: TOXASSURE COMP DRUG ANALYSIS,UR Test Result Flag Units Drug Present Oxycodone 1251 ng/mg creat Oxymorphone 792 ng/mg creat Noroxycodone 3098 ng/mg creat Noroxymorphone 53 ng/mg creat Sources of oxycodone are scheduled prescription medications. Oxymorphone, noroxycodone, and noroxymorphone are expected metabolites of oxycodone. Oxymorphone is also available as a scheduled prescription medication. Duloxetine PRESENT Acetaminophen PRESENT Test Result Flag Units Ref Range Creatinine 159 mg/dL >=20 Declared Medications: Medication list was not provided. For clinical consultation, please call . Please review and advise. Sho Gates RN documented in this encounterGrant Hospital01-18-2023 Miscellaneous Notes* Telephone Encounter - Rosie Tello APRN.RUBBER PROCESS HAND - 03/10/2022 10:21 AM EST The following approved medication requests have been transmitted electronically. Requested Prescriptions Signed Prescriptions Disp Refills oxyCODONE (ROXICODONE) 15 mg immediate release tablet 90 tablet 0 Sig: Take 1 tablet by mouth three times daily as needed for pain for up to 30 days. Do not start before March 12, 2022. Authorizing Provider: ROSIE TELLO DULoxetine (CYMBALTA) 30 mg capsule 30 capsule 0 Sig: Take 1 capsule by mouth once daily. In am Authorizing Provider: ROSIE TELLO DULoxetine (CYMBALTA) 60 mg capsule 30 capsule 0 Sig: Take 1 capsule by mouth once daily. At hs Authorizing Provider: ROSIE TELLO APRN.RUBBER PROCESS HAND * Telephone Encounter - Becca Dudley RN - 03/10/2022 9:15 AM EST Patient phones requesting refills as follows: Requested [...] Last UDS: No results found for: SUMM @FLOW([id number])@ No results found for: SUMM Summary Report (Summary) Date Value Ref Range Status 11/24/2021 FINAL Final Comment: TOXASSURE COMP DRUG ANALYSIS,UR Test Result Flag Units Drug Present Oxycodone 1251 ng/mg creat Oxymorphone 792 ng/mg creat Noroxycodone 3098 ng/mg creat Noroxymorphone 53 ng/mg creat Sources of oxycodone are scheduled prescription medications. Oxymorphone, noroxycodone, and noroxymorphone are expected metabolites of oxycodone. Oxymorphone is also available as a scheduled prescription medication. Duloxetine PRESENT Acetaminophen PRESENT Test Result Flag Units Ref Range Creatinine 159 mg/dL >=20 Declared Medications: Medication list was not provided. For clinical consultation, please call . Please review and advise. Becca Dudley RN documented in this encounterGrant Hospital12-29-2022 Instructions* Patient Instructions* Rosie Tello APRN.RUBBER PROCESS HAND - 02/18/2022 3:36 PM EST Continue duloxetine Continue zanaflex Continue SCS use DC percocet. Prescribe oxycodone 15mg one tab tid prn. OARRS reviewed and consistent UDS reviewed and consistent Sign Pain contract Continue diet efforts Followup in 2 months coordinated with spouse seeing provider at same time documented in this encounterGrant Hospital12-29-2022 History of Present illness Narrative* Rosie Tello APRN.CNS - 02/18/2022 3:00 PM EST SUBJECTIVE: Taryn Self [facility] for a follow-up appointment for back and bilateral knee pain Last seen by Dr Osorio on 11/24/21 Pain level:7-09/30 Denies ED visits or hospitalizations since last [...] agreement with the above and verbalized understanding. Rosie Tello APRN.CNS February 18, 2022 documented in this encounterGrant Hospital12-06-2022 Miscellaneous Notes* Telephone Encounter - Génesis Osorio DO - 01/26/2022 9:04 PM EST The following approved medication requests have been transmitted electronically. Requested Prescriptions Pending Prescriptions Disp Refills oxyCODONE-acetaminophen (PERCOCET 10) 10-325 mg tablet 90 tablet 0 Sig: Take 1 tablet by mouth every 8 hours as needed for pain for up to 30 days. Do not start beforeFebruary 06, 2022. DULoxetine (CYMBALTA) 30 mg capsule 30 capsule 0 Sig: Take 1 capsule by mouth once daily. In am DULoxetine (CYMBALTA) 60 mg capsule 30 capsule 0 Sig: Take 1 capsule by mouth once daily. At Génesis Osorio DO * Telephone Encounter - Carline Cabrera RN - 01/26/2022 3:05 PM EST Pt requesting refill as follows Requested Prescriptions [...] advise. Carline Cabrera RN documented in this encounterGrant Hospital10-10-2022 Miscellaneous Notes* Telephone Encounter - Courtney Oh RN - 11/30/2021 10:07 AM EDT Patient phones requesting refills as follows: Requested Prescriptions Pending Prescriptions Disp Refills DULoxetine (CYMBALTA) 60 mg capsule 30 capsule 0 Sig: Take 1 capsule by mouth once daily. At hs DULoxetine (CYMBALTA) 30 mg capsule 30 capsule 0 Sig: Take 1 capsule by mouth once daily. In am Please review and advise. Courtney Oh RN documented in this encounterGrant Hospital10-04-2022 Instructions* Patient Instructions* Génesis Osorio DO - 11/24/2021 11:41 AM EDT Continue Cymbalta (90mg total) for fibromyalgia Continue Percocet (mmeq=60.00) Continue dietary modification and weight loss efforts Continue SCStim therapy with [employer] Continue treatment with Dr. Wyman, front office director Continue Zanaflex 4 mg three times daily as needed PA and schedule bilateral synvisc injections as needed 8. Obtain UDS 9. Referral to Dr. Nguyen, bariatric surgery 10. Follow up with PCP regarding ultrasound findings of the cyst on her right leg 11. Follow up in 2-3 months with PRODUCT SAFETY CONSULTANT in office documented in this encounterGrant Hospital10-04-2022 History of Present illness Narrative* Génesis Osorio DO - 11/24/2021 10:51 AM EDTSummary: Pain Management Follow Up DATE: November 24, 2021 Chief Complaint: back and bilateral knee pain History of Present Illness: Taryn Self is a 61 year old female being seen at [facility] for a evaluation and/or management of their chronic pain. She was last seen on 08/28/21 and the plan of care was as follows: Continue Cymbalta(90mg total) for fibromyalgia. Continue Percocet (mmeq=60.00) Continue dietary modification and weight loss efforts. Continue SCStim therapy with [employer]. Continue tx with Dr. Wyman front office director. Continue Zanaflex 4 mg TID PRN. PA and schedule beto synvisc inj.PRN F/U in 1 month She [...] someone is hitting it with a baseball bat. Her front office director is recommending her for gastric bypass surgery. VAS: 7/10 Pain Location: back and beto knee pain Timing:constant Character/Quality:dull Radiation:denies Numbness:denies Burning:denies Tingling:denies Weakness:beto legs Falls:denies Alleviating Factors:inactiviy Aggravating Factors:movement The [...] MUSCULOSKELETAL: positive back and bilateral knee pain PAST MEDICAL HISTORY Diagnosis Date Constipation Depression [...] capsule by mouth once daily. At hs No current facility-administered medications for this visit. [...] Chronic pain is persistent. Medications are helping Taryn Self to have an improved quality of life. Patient compliance with Opioid Contract: patient is compliant PDMP website checked and validated. All prescriptions have been APPROPRIATELY filled. No suspiciousactivity was identified. 11/24/2021 by Sania Jones MA [...] documentation for this encounter was entered by timur Patten scribe, for Dr. Génesis Osorio on November 24, 2021 I, Dr. Génesis Osorio, personally performed the services described in this documentation. All medical record entries made by the scribe were at my direction and in my presence. I have reviewed the chart and discharge instructions and agree that the record reflects my personal performance and is accurate and complete. Electronically Signed: Dr. Osorio. November 24, 2021 documented in this [facility]09-09-2022 Miscellaneous Notes* Telephone Encounter - Becca Dudley RN - 10/30/2021 10:30 AM EDT Patient phones requesting refills as follows: Requested Prescriptions Pending Prescriptions Disp Refills DULoxetine (CYMBALTA) 30 mg capsule 30 capsule 0 Sig: Take 1 capsule by mouth once daily. In am DULoxetine (CYMBALTA) 60 mg capsule 30 capsule 0 Sig: Take 1 capsule by mouth daily at bedtime. Please review and advise. Becca Dudley RN documented in this [facility]09-01-2022 Miscellaneous Notes* Telephone Encounter - Estephania Rondon APRN.CNP - 10/22/2021 1:59 PM EDT The following approved medication requests have been transmitted electronically. Requested Prescriptions Signed Prescriptions Disp Refills oxyCODONE-acetaminophen (PERCOCET 10) 10-325 mg tablet 90 tablet 0 Sig: Take 1 tablet by mouth every 8 hours as needed for pain for up to 30 days. Do not start beforeOctober 30, 2021. Authorizing Provider: ESTEPHANIA RONDON APRN.CNP * Telephone Encounter - Carline Cabrera RN - 10/22/2021 1:04 PM EDT Pt is requesting a refill of the Oxycodone, she missed her appt. on 10/06 due to having trouble withMyChart. She is re-scheduled for 11/18. Please advise. Carline Cabrera RN documented in this [facility]08-03-2022 Miscellaneous Notes* Telephone Encounter - Estephania Rondon APRN.CNP - 09/23/2021 5:05 PM EDT The following approved medication requests have been [...] JAHAIRA: No Authorizing Provider: ESTEPHANIA RONDON APRN.CNP * Telephone Encounter - Chanel Flores RN - 09/22/2021 12:56 PM EDT Patient phones requesting refills as follows: Pending [...] advise. Chanel Flores RN documented in this encounterGrant Hospital07-08-2022 Instructions* Patient Instructions* Estephania Rondon APRN.CNP - 08/28/2021 10:38 AM EDT Continue Cymbalta(90mg total) for fibromyalgia. Continue Percocet (mmeq=60.00) Continue dietary modification and weight loss efforts. Continue SCStim therapy with [employer]. Continue tx with Dr. Wyman front office director. Continue Zanaflex 4 mg TID PRN. PA and schedule beto synvisc inj.PRN F/U in 1 month -can schedule through MyChart or call [phone] for assistance documented in this encounterGrant Hospital07-08-2022 History of Present illness Narrative* Estephania Rondon APRN.CNP - 08/28/2021 10:20 AM EDTSummary: f/u DATE: August 28, 2021 This video visit was performed via [employer] video visit. Patient consented to receive health care services via virtual visit for this encounter [facility] Patient Location: Patient Home or Place of Residence Risks, benefits, and limitations of receiving care virtually were discussed with the patient. The patient expressed understanding and is willing to proceed. Chief Complaint: Pain History of Present Illness: Taryn Self is a 60 year old year old female being seen at [facility] for a evaluation and/or management of their chronic pain. Taryn Self last had an office vist on 12/09/20, virtual visit on 08/04/21. Since the last office visit her pain level has remained the same. VAS: 7/10 Pain Location: back and beto knee pain Timing:constant Character/Quality:dull Radiation:denies Numbness:denies Burning:denies Tingling:denies Weakness:beto legs Falls:denies Alleviating Factors:inactiviy Aggravating Factors:movement The [...] Chronic pain is persistent. Medications are helping Taryn Self to have an improved quality of [...] with [employer]. Continue tx with Dr. Wyman front office director. Continue Zanaflex 4 mg TID PRN. PA and schedule beto synvisc inj.PRN F/U in 1 month -can schedule through [employer] or call [phone] for assistance Estephania Rondon APRN.VY documented in this encounterGrant HospitalEvaluation noteNo assessment information availableWPike Community Hospital Work Phone: Evaluation note* Diagnosis Chronic pain syndrome- Primary Osteoarthritis of both knees, unspecified osteoarthritis type Generalized osteoarthrosis, involving multiple sites Inflammatory spondylopathy of lumbar region (HCC) Unspecified inflammatory spondylopathy [facility] Diagnosis Onset Date Resolution Status Allergic rhinitis acute Type [address] [facility] Work Phone: Evaluation note* Diagnosis Encounter for long-term (current) use of high-risk medication- Primary Encounter for long-term (current) use of other medications [facility] Diagnosis Encounter for long-term (current) use of high-risk medication Encounter for long-term (current) use of other medications [facility] Diagnosis Chronic pain syndrome- Primary Encounter for long-term (current) use of high-risk medication Encounter for long-term (current) use of other medications Morbid obesity (HCC) Morbid obesity [facility]* Diagnosis Onset Date Resolution Status Allergic rhinitis acute Type 2 diabetes mellitus [facility] Right calf pain acute Type [address] [facility] Work Phone: Evaluation note* Diagnosis Onset Date Resolution Status Right calf pain acute Type 2 diabetes mellitus [facility] Disc degeneration, lumbar ac [place] Osteoarthritis of right knee acute CKD (chronic kidney disease), stage III chronic Fibromyalgia chronic Super-super obese chronic Type [address] [facility] Work Phone: Evaluation note* Diagnosis Encounter for long-term (current) use of high-risk medication Encounter for long-term (current) use of other medications [facility] Diagnosis Displacement of lumbar intervertebral disc without myelopathy- Primary Other spondylosis, lumbosacral region Osteoarthritis of both knees, unspecified osteoarthritis type Lumbar radiculopathy Thoracic or lumbosacral neuritis or radiculitis, unspecified Chronic pain syndrome High risk medication use Encounter for long-term (current) use of other medications [facility] Diagnosis Onset Date Resolution Status Right calf pain acute Type 2 diabetes mellitus chr on Disc degeneration, lumbar ac [place] Osteoarthritis of right knee acute CKD (chronic kidney disease), stage III chronic Fibromyalgia chronic Super-super obese chronic Type 2 diabetes mellitus chr onic CKD (chronic kidney disease), stage III chronic Cystic acne vulgaris chronic Type [address] [facility] Work Phone: Evaluation note* Diagnosis Chronic pain syndrome [facility]* Diagnosis Onset Date Resolution Status CKD (chronic kidney disease), stage III chronic Cystic acne vulgaris chronic Type [address] [facility] Work Phone: Evaluation note* Diagnosis Chronic pain syndrome- Primary Displacement [...] Unspecified inflammatory spondylopathy [facility] Diagnosis Chronic pain syndrome [facility] Diagnosis Chronic pain syndrome- Primary Displacement [...] Carpal tunnel syndrome [facility] Diagnosis Onset Date Resolution Status Allergic rhinitis chronic Type [address] [facility] Work Phone: Evaluation note* Diagnosis Chronic pain syndrome [facility] Diagnosis Chronic pain syndrome [facility] Diagnosis Chronic pain syndrome- Primary [...] unspecified osteoarthritis type [facility] Diagnosis Chronic pain syndrome [facility] Diagnosis Chronic pain syndrome [facility] Diagnosis Chronic pain syndrome- Primary Displacement [...] (HCC) Morbid obesity [facility] Diagnosis Chronic pain syndrome [facility]* Diagnosis Chronic pain syndrome [facility]* Diagnosis Onset Date Resolution Status CKD (chronic kidney disease), stage III chronic Cystic acne vulgaris chronic Super-super obese chronic Type [address] [facility] Work Phone: Evaluation note* Diagnosis Chronic pain syndrome- Primary [facility] Diagnosis Chronic pain syndrome [facility]* Diagnosis Chronic pain syndrome- Primary [facility] Diagnosis Chronic pain syndrome [facility]* Diagnosis Lumbar spondylosis- Primary Lumbosacral spondylosis without myelopathy Other chronic pain Chronic pain syndrome [facility] Diagnosis Vasovagal episode- Primary Syncope and collapse Abdominal cramping Abdominal pain, unspecified site documented in this encounter [facility] Work Phone: [facility]* Diagnosis Chronic pain syndrome documented in this encounter [facility] note* Diagnosis Lumbar spondylosis- Primary Lumbosacral spondylosis without myelopathy Chronic pain syndrome High risk medication use Encounter for long-term (current) use of other medications Lumbar radiculopathy Thoracic or lumbosacral neuritis or radiculitis, unspecified Osteoarthritis of both knees, unspecified osteoarthritis type Inflammatory spondylopathy of lumbar region (HCC) Unspecified inflammatory spondylopathy [facility]* Diagnosis Chronic pain syndrome [facility] Diagnosis Lumbar spondylosis Lumbosacral spondylosis without myelopathy [facility] Diagnosis Lumbar spondylosis- Primary Lumbosacral spondylosis without myelopathy [facility]* Diagnosis Lumbar spondylosis Lumbosacral spondylosis without myelopathy [facility]* Diagnosis Chronic pain syndrome- Primary [facility] Diagnosis Lumbar spondylosis Lumbosacral spondylosis without myelopathy [facility]* Diagnosis Chronic pain syndrome- Primary Lumbar spondylosis Lumbosacral spondylosis without myelopathy High risk medication use Encounter for long-term (current) use of other medications Osteoarthritis of both knees, unspecified osteoarthritis type Inflammatory polyarthropathy (HCC) Unspecified inflammatory polyarthropathy Inflammatory spondylopathy of lumbar region Unspecified inflammatory spondylopathy [facility]* Diagnosis Lumbar spondylosis Lumbosacral spondylosis without myelopathy Chronic pain syndrome [facility] Diagnosis Chronic pain syndrome- Primary [facility]* Diagnosis Chronic pain syndrome- Primary Lumbar spondylosis Lumbosacral spondylosis without myelopathy Morbid obesity (HCC) Morbid obesity Lumbar radiculopathy Thoracic or lumbosacral neuritis or radiculitis, unspecified Chronic pain of left knee Pain in joint, lower leg documented in this encounter [facility] Discharge instructions* Attachments The following attachments cannot be sent through Care Everywhere. * Abdominal Pain, Adult ED (Nigerian) * Vasovagal Response Discharge Instructions (Nigerian) [facility]: Reason for referral (narrative)No reason for referral information availableWPike Community Hospital Work Phone: Summary Purpose Family History No Family History Records Found Relationship Condition Age at Onset Recorded Date/T galen grandfather Myocardial infarction Unknown Advance Directives No Advanced Directives Records FoundDocuments on File Type Date Recorded Patient Pediatric Social Worker Expl anation Advance Directives and Livin g Will 08/22/2019 7:47 AM Documents on File Type Date Recorded Patient Pediatric Social Worker Expl anation Advance Directive(s) 02/04/2017 5:43 AM Advance Directive Response Recorded Date/ Time Living Will No October 28, 2 018 4:02pm Power of Manager Distribution Center No October 28, 2017 4:02pm Advance Directive Response Recorded Date/ Time Living Will No October 28, 2 018 3:02pm Power of Manager Distribution Center No October 28, 2017 3:02pm Advance Directive Response Recorded Date/ Time Living Will No October 28, 2 018 4:02pm Do you have a Healthcare Power of Manager Distribution Center? No October 28, 2017 4:02pm History of Present Illness * Ernesto Montiel MD - 04/26/2018 4:52 PM EST Associated Order(s): LG Jt Injection/Arthrocentesis: L knee Post-Procedure Diagnose(s): Primary osteoarthritis of left knee Dictation on: 04/26/2018 4:56 PM by: ERNESTO MONTIEL [[id number]] LG Jt Injection/Arthrocentesis: L knee Performed by: Ernesto Montiel MD Authorized by: Ernesto Montiel MD Supporting Documentation: Indications: Pain Procedure Details: [...] suggested that she [facility] at [facility] or [facility]. With a BMI of 60 she is in a class where bariatric surgery has higher risks. Taryn Self 1960 58 y.o. female who presents [...] morbid obesity. The note was dictated using [employer] dictation system. The voice recognition software is inherently [...] your Care Team: Provider: MD Isak Gonzalez CNP Nurse: Stefanie Pelletier RN In case of [...] refills. Thank you! documented in this encounter Chief Complaint and Reason for Visit Chief Complaint EORDER FROM [facility] PAIN- COPY PCP Chief Complaint PAIN- COPY PCP 6 M FU PAIN- COPY PCP Reason for Visit Allergic rhinitis Type 2 diabetes mellitus Chief Complaint 6 M FU PAIN- COPY PCP 3 M FU RIGHT EDEMA PAIN Reason for Visit Allergic rhinitis Type 2 diabetes mellitus Right calf pain Type 2 diabetes mellitus Chief Complaint PAIN- COPY PCP 3 M FU RIGHT EDEMA PAIN RIGHT KNEE Room 3 xray EORDER FROM JYOTHI MCGORON Reason for Visit Right calf pain Type 2 diabetes mellitus Disc degeneration, lumbar Osteoarthritis of right knee CKD (chronic kidney disease), stage III Fibromyalgia Super-super obese Type 2 diabetes mellitus Chief Complaint 3 M FU RIGHT EDEMA PAIN RIGHT KNEE Room 3 xray EORDER FROM JYOTHI MCGORON 3 M FU Reason for Visit Right calf pain Type 2 diabetes mellitus Disc degeneration, lumbar Osteoarthritis of right knee CKD (chronic kidney disease), stage III Fibromyalgia Super-super obese Type 2 diabetes mellitus CKD (chronic kidney disease), stage III Cystic acne vulgaris Type 2 diabetes mellitus Chief Complaint 3 M FU Reason for Visit CKD (chronic kidney disease), stage III Cystic acne vulgaris Type 2 diabetes mellitus Chief Complaint 3 M FU CHRONIC SINUSITIS /labs for Dr Wyman Reason for Visit Allergic rhinitis Type 2 diabetes mellitus Chief Complaint PAIN- COPY PCP acne due to hormones, pt ref by her derm PAIN- COPY PCP SCREENING Reason for Visit CKD (chronic kidney disease), stage III Cystic acne vulgaris Super-super obese Type 2 diabetes mellitus Chief Complaint Admit Date PAIN- COPY PCP March 13, 2024 1 2:52pm 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) April 02, 2024 9:16am Reason for Visit Admit Date Hidradenitis suppurativa April 02, 2024 9:16am Super-super obese April 02, 2024 9:16am Encounter for routine gynecological exam ination April 02, 2024 9:16am Chief Complaint Admit Date PAIN- COPY PCP August 27, 2024 10:46 am Reason for Referral Specialty Diagnoses / Procedures Referred By Contac t Referred To Contact Diagnoses Encounter for long-term (current) use of high-risk medication Chronic pain syndrome Morbid obesity (HCC) Procedures [facility] Génesis Osorio, DO [address] [place] [address] Иван Nguyen [address], [address] [place] [address] Referral ID Status Reason Start Date Expiration Date Visits Requested Visits Authorized [id number] Ref Not Required PCP Requested Referral 11/24/2021 11/24/2022 1 1 Specialty Diagnoses / Procedures Referred By Contac t Referred To Contact Diagnoses Chronic pain syndrome Rosie Tello, MOTOR VEHICLE PARTS INTERPRETER.RUBBER PROCESS HAND [address] [place] [address] Referral ID Status Reason Start Date Expiration Date Visits Re quested Visits Authorized [id number] Closed 1 1 Referral ID Status Reason Start Date Expiration Date Visits Re quested Visits Authorized [id number] Closed 1 1 Specialty Diagnoses / Procedures Referred By Contac t Referred To Contact Diagnoses Chronic pain syndrome Génesis Osorio, [address] [place] [address] Referral ID Status Reason Start Date Expiration Date Visits Re quested Visits Authorized [id number] Closed 1 1 Specialty Diagnoses / Procedures Referred By Contac t Referred To Contact Diagnoses Chronic pain syndrome Estephania Rondon MOTOR VEHICLE PARTS INTERPRETER.TALENT MANAGEMENT SPECIALIST [address] [place] [address] Referral ID Status Reason Start Date Expiration Date Visits Re quested Visits Authorized [id number] Closed 1 1 Specialty Diagnoses / Procedures Referred By Contac t Referred To Contact Diagnoses Chronic pain syndrome Brett Pastor, MOTOR VEHICLE PARTS INTERPRETER.TALENT MANAGEMENT SPECIALIST [address] [place] [address] Referral ID Status Reason Start Date Expiration Date V isits Requested Visits Authorized [id number] Pending Review 1 1 Additional Source Comments INFORMATION SOURCE (unrecogn ized section and content) DATE CREATED AUTHOR 08/12/2017 [facility] DATE CREATED AUTHOR AUTHOR'S ORGANIZ ATION 08/16/2017 [facility] DATE CREATED AUTHOR AUTHOR'S ORGANIZ ATION 08/17/2017 [facility] DATE CREATED AUTHOR AUTHOR'S ORGANIZ ATION 08/31/2017 [facility] DATE CREATED AUTHOR AUTHOR'S ORGANIZ ATION 09/13/2019 [facility] DATE CREATED AUTHOR AUTHOR'S ORGANIZ ATION 08/04/2021 [facility] DATE CREATED AUTHOR AUTHOR'S ORGANIZ ATION 07/08/2022 [facility] DATE CREATED AUTHOR AUTHOR'S ORGANIZ ATION 09/13/2023 [facility] DATE CREATED AUTHOR AUTHOR'S ORGANIZ ATION 09/14/2023 [facility] DATE CREATED AUTHOR AUTHOR'S ORGANIZ ATION 09/07/2024 [facility] DATE CREATED AUTHOR AUTHOR'S ORGANIZ ATION 09/13/2024 [facility] Reason for Visit (unrecogniz ed section and content) Reason Comments Joint Pain Specialty Diagnoses / Procedures Referred By Contac t Referred To Contact Anesthesiology / PAIN MANAGEMENT Diagnoses Spondylosis without myelopathy or radiculopathy, lumbar region follow up ok per Dr. Esparza Procedures OFFICE/OUTPATIENT ESTABLISHED SF MDM 10 MIN OFFICE/OUTPATIENT ESTABLISHED LOW MDM 20 MIN OFFICE/OUTPATIENT ESTABLISHED MOD MDM 30 MIN OFFICE/OUTPATIENT ESTABLISHED HIGH MDM 40 MIN EST PATIENT Self Jay Esparza MD [address] [facility] [place] [address] Referral ID Status Reason Start Date Expiration Date V isits Requested Visits Authorized [id number] Authorized 05/24/2023 02/21/2024 1 99 Reason Comments Chronic Pain Specialty Diagnoses / Procedures Referred By Contac t Referred To Contact PAIN MANAGEMENT Diagnoses Chronic pain syndrome Procedures EST PATIENT VISIT LEVEL 1 OFFICE/OUTPATIENT ESTABLISHED SF MDM 10 MIN OFFICE/OUTPATIENT ESTABLISHED LOW MDM 20 MIN OFFICE/OUTPATIENT ESTABLISHED MOD MDM 30 MIN OFFICE/OUTPATIENT ESTABLISHED HIGH MDM 40 MIN Jay Esparza MD [address] [place] [address] [facility] [address] [facility] [place] [address] Referral ID Status Reason Start Date Expiration Date V isits Requested Visits Authorized [id number] Closed OON/Self Pay Override 07/25/2023 02/21/2024 1 1 Reason Comments Pain Generalized Specialty Diagnoses / Procedures Referred By Contac t Referred To Contact PAIN MANAGEMENT Diagnoses Encounter for general adult medical examination without abnormal findings Procedures EST PATIENT VISIT LEVEL 1 OFFICE/OUTPATIENT ESTABLISHED SF MDM 10-19 MIN OFFICE/OUTPATIENT ESTABLISHED LOW MDM 20-29 MIN OFFICE/OUTPATIENT ESTABLISHED MOD MDM 30-39 MIN OFFICE/OUTPATIENT ESTABLISHED HIGH MDM 40-54 MIN Janet Zafar, TALENT MANAGEMENT SPECIALIST [address] [address] Génesis Osorio, [address] [place] [address] Referral ID Status Reason Start Date Expiration Date Visits Requested Visits Authorized [id number] Authorized OON/Self Pay Override 10/07/2022 02/20/2023 99 99 Reason Comments Pain Referral ID Status Reason Start Date Expiration Date V isits Requested Visits Authorized [id number] Closed OON/Self Pay Override 07/28/2022 02/20/2023 1 1 Reason Comments Pain Reason Comments PT Initial Evaluation KENDRA INSUF Status Reason Specialty Diagnoses / Procedures Referre d By Contact Referred To Contact Closed Cardiology Diagnoses Venous (peripheral) insufficiency Danisha Briggs MD [address] [place] [address] Ran Cochran MD [address] [facility] [place] [address] Reason Onset Date Comments Refill Request 09/22/2021 [...] Up Specialty Diagnoses / Procedures Referred By Contxavier t Referred To Contact Diagnoses Encounter for long-term (current) use of high-risk medication Chronic pain syndrome Morbid obesity (HCC) Procedures [facility] Génesis Osorio, DO [address] [place] [address] Иван Nguyen [address] [place] [address], [address] [place] [address] Referral ID Status Reason Start Date Expiration Date Visits Requested Visits Authorized [id number] Ref Not Required PCP Requested Referral 11/24/2021 [...] Reason Onset Date Comments Refill Request 04/06/2023 Reason Onset Date Comments Refill Request 05/09/2023 Referral ID Status Reason Start Date Expiration Date V isits Requested Visits Authorized [id number] Authorized 05/24/2023 02/21/2024 99 99 Reason Onset Date Comments Refill Request 07/07/2023 Reason Onset Date Comments Refill Request 07/25/2023 Reason Onset Date Comments Refill Request 08/08/2023 Reason Onset Date Comments Refill Request 09/08/2023 Reason Onset Date Comments Refill Request 09/23/2023 Reason Onset Date Comments Refill Request 10/03/2023 Reason Onset Date Comments Refill Request 10/21/2023 Reason Onset Date Comments Refill Request 11/07/2023 Reason Onset Date Comments Refill Request 11/22/2023 Reason Onset Date Comments Refill Request 01/03/2024 Reason Onset Date Comments Refill Request 01/23/2024 Reason Comments Dizziness To ED per [facility] squad from home with c/o dizziness while having a BM. She denies any straining or bearing down. She reports that she started having severe abd cramping that made her sweat and anxious. She reports that she recently started taking Ozempic and Metformin. She also reports that her normal bowel routine switches between constipation and diarrhea. EKG done at Reason Onset Date Comments Refill Request 02/07/2024 Reason Onset Date Comments Refill Request 02/24/2024 Reason Comments Back Pain Low Pain Beto knees Specialty Diagnoses / Procedures Referred By Contac t Referred To Contact Pain Management / PAIN MANAGEMENT Diagnoses Other chronic pain 3 month follow up Procedures EST PATIENT VISIT LEVEL 1 OFFICE/OUTPATIENT ESTABLISHED SF MDM 10 MIN OFFICE/OUTPATIENT ESTABLISHED LOW MDM 20 MIN OFFICE/OUTPATIENT ESTABLISHED MOD MDM 30 MIN OFFICE/OUTPATIENT ESTABLISHED HIGH MDM 40 MIN EST PATIENT Jay Esparza MD [address] [place] [address] Tristian Martin PA-C [address] [place] [address] Referral ID Status Reason Start Date Expiration Date V isits Requested Visits Authorized [id number] Closed OON/Self Pay Override 02/13/2024 02/20/2025 1 1 Reason Comments Pt received partial fill of oxycodone Reason Onset Date Comments Refill Request 04/04/2024 Reason Onset Date Comments Refill Request 04/23/2024 Reason Onset Date Comments Refill Request 05/09/2024 Reason Onset Date Comments Refill Request 05/23/2024 Reason Onset Date Comments Refill Request 05/29/2024 Reason Comments Back Pain Low back Pain Knees All over Specialty Diagnoses / Procedures Referred By Contac t Referred To Contact Pain Management / PAIN MANAGEMENT Diagnoses Lumbar spondylosis Follow Up Procedures OFFICE/OUTPATIENT ESTABLISHED SF MDM 10 MIN OFFICE/OUTPATIENT ESTABLISHED LOW MDM 20 MIN OFFICE/OUTPATIENT ESTABLISHED MOD MDM 30 MIN OFFICE/OUTPATIENT ESTABLISHED HIGH MDM 40 MIN EST PAIN Janet Zafar, TALENT MANAGEMENT SPECIALIST [address] [facility] [address] [place] [address] Phone: tel: fax: Tristian Martin PA-C [address] [place] [address] Phone: tel: fax: Referral ID Status Reason Start Date Expiration Date V isits Requested Visits Authorized [id number] Authorized 02/22/2024 02/20/2025 99 99 Reason Onset Date Comments Refill Request 06/19/2024 Reason Onset Date Comments Refill Request 07/23/2024 Reason Onset Date Comments Refill Request 08/15/2024 Reason Onset Date Comments Refill Request 08/23/2024 Reason Comments Back Pain Low Pain Knee- left Specialty Diagnoses / Procedures Referred By Contac t Referred To Contact Pain Management / PAIN MANAGEMENT Diagnoses Other chronic pain 3 Month follow up Procedures EST PATIENT VISIT LEVEL 1 OFFICE/OUTPATIENT ESTABLISHED SF MDM 10 MIN OFFICE/OUTPATIENT ESTABLISHED LOW MDM 20 MIN OFFICE/OUTPATIENT ESTABLISHED MOD MDM 30 MIN OFFICE/OUTPATIENT ESTABLISHED HIGH MDM 40 MIN EST PAIN Janet Zafar, TALENT MANAGEMENT SPECIALIST [address] [facility] [address] [place] [address] Phone: tel: fax: Tristian Martin PA-C [address] [place] [address] Phone: tel: fax: Referral ID Status Reason Start Date Expiration Date Visits Re quested Visits Authorized [id number] Closed 07/26/2024 02/20/2025 1 1 Source Comments (unrecognize d section and content) In the event this informatio n is protected by the Federal Confidentiality of Alcohol and Drug Abuse Patient Records regulations: The Federal rules restrict any use of the information to criminally investigate or prosecute any alcohol or drug abuse patient.[facility] HospitalIn the event this information is protected by the Federal Confidentiality of Alcohol and Drug Abuse Patient Records regulations: The Federal rules restrict any use of the information to criminally investigate or prosecute any alcohol or drug abuse patient.[facility] HospitalIn the event this information is protected by the Federal Confidentiality of Alcohol and Drug Abuse Patient Records regulations: The Federal rules restrict any use of the information to criminally investigate or prosecute any alcohol or drug abuse patient.[facility] HospitalIn the event this information is protected by the Federal Confidentiality of Alcohol and Drug Abuse Patient Records regulations: The Federal rules restrict any use of the information to criminally investigate or prosecute any alcohol or drug abuse patient.[facility] HospitalIn the event this information is protected by the Federal Confidentiality of Alcohol and Drug Abuse Patient Records regulations: The Federal rules restrict any use of the information to criminally investigate or prosecute any alcohol or drug abuse patient.[facility] HospitalIn the event this information is protected by the Federal Confidentiality of Alcohol and Drug Abuse Patient Records regulations: The Federal rules restrict any use of the information to criminally investigate or prosecute any alcohol or drug abuse patient.[facility] HospitalIn the event this information is protected by the Federal Confidentiality of Alcohol and Drug Abuse Patient Records regulations: The Federal rules restrict any use of the information to criminally investigate or prosecute any alcohol or drug abuse patient.[facility] HospitalIn the event this information is protected by the Federal Confidentiality of Alcohol and Drug Abuse Patient Records regulations: The Federal rules restrict any use of the information to criminally investigate or prosecute any alcohol or drug abuse patient.[facility] HospitalIn the event this information is protected by the Federal Confidentiality of Alcohol and Drug Abuse Patient Records regulations: The Federal rules restrict any use of the information to criminally investigate or prosecute any alcohol or drug abuse patient.[facility] HospitalIn the event this information is protected by the Federal Confidentiality of Alcohol and Drug Abuse Patient Records regulations: The Federal rules restrict any use of the information to criminally investigate or prosecute any alcohol or drug abuse patient.[facility] HospitalIn the event this information is protected by the Federal Confidentiality of Alcohol and Drug Abuse Patient Records regulations: The Federal rules restrict any use of the information to criminally investigate or prosecute any alcohol or drug abuse patient.[facility] HospitalIn the event this information is protected by the Federal Confidentiality of Alcohol and Drug Abuse Patient Records regulations: The Federal rules restrict any use of the information to criminally investigate or prosecute any alcohol or drug abuse patient.[facility] HospitalIn the event this information is protected by the Federal Confidentiality of Alcohol and Drug Abuse Patient Records regulations: The Federal rules restrict any use of the information to criminally investigate or prosecute any alcohol or drug abuse patient.[facility] HospitalIn the event this information is protected by the Federal Confidentiality of Alcohol and Drug Abuse Patient Records regulations: The Federal rules restrict any use of the information to criminally investigate or prosecute any alcohol or drug abuse patient.[facility] HospitalIn the event this information is protected by the Federal Confidentiality of Alcohol and Drug Abuse Patient Records regulations: The Federal rules restrict any use of the information to criminally investigate or prosecute any alcohol or drug abuse patient.[facility] HospitalIn the event this information is protected by the Federal Confidentiality of Alcohol and Drug Abuse Patient Records regulations: The Federal rules restrict any use of the information to criminally investigate or prosecute any alcohol or drug abuse patient.[facility] HospitalIn the event this information is protected by the Federal Confidentiality of Alcohol and Drug Abuse Patient Records regulations: The Federal rules restrict any use of the information to criminally investigate or prosecute any alcohol or drug abuse patient.[facility] HospitalIn the event this information is protected by the Federal Confidentiality of Alcohol and Drug Abuse Patient Records regulations: The Federal rules restrict any use of the information to criminally investigate or prosecute any alcohol or drug abuse patient.[facility] HospitalIn the event this information is protected by the Federal Confidentiality of Alcohol and Drug Abuse Patient Records regulations: The Federal rules restrict any use of the information to criminally investigate or prosecute any alcohol or drug abuse patient.[facility] HospitalIn the event this information is protected by the Federal Confidentiality of Alcohol and Drug Abuse Patient Records regulations: The Federal rules restrict any use of the information to criminally investigate or prosecute any alcohol or drug abuse patient.[facility] HospitalIn the event this information is protected by the Federal Confidentiality of Alcohol and Drug Abuse Patient Records regulations: The Federal rules restrict any use of the information to criminally investigate or prosecute any alcohol or drug abuse patient.[facility] HospitalIn the event this information is protected by the Federal Confidentiality of Alcohol and Drug Abuse Patient Records regulations: The Federal rules restrict any use of the information to criminally investigate or prosecute any alcohol or drug abuse patient.[facility] HospitalIn the event this information is protected by the Federal Confidentiality of Alcohol and Drug Abuse Patient Records regulations: The Federal rules restrict any use of the information to criminally investigate or prosecute any alcohol or drug abuse patient.[facility] HospitalIn the event this information is protected by the Federal Confidentiality of Alcohol and Drug Abuse Patient Records regulations: The Federal rules restrict any use of the information to criminally investigate or prosecute any alcohol or drug abuse patient.[facility] HospitalIn the event this information is protected by the Federal Confidentiality of Alcohol and Drug Abuse Patient Records regulations: The Federal rules restrict any use of the information to criminally investigate or prosecute any alcohol or drug abuse patient.[facility] HospitalIn the event this information is protected by the Federal Confidentiality of Alcohol and Drug Abuse Patient Records regulations: The Federal rules restrict any use of the information to criminally investigate or prosecute any alcohol or drug abuse patient.[facility] HospitalIn the event this information is protected by the Federal Confidentiality of Alcohol and Drug Abuse Patient Records regulations: The Federal rules restrict any use of the information to criminally investigate or prosecute any alcohol or drug abuse patient.[facility] HospitalIn the event this information is protected by the Federal Confidentiality of Alcohol and Drug Abuse Patient Records regulations: The Federal rules restrict any use of the information to criminally investigate or prosecute any alcohol or drug abuse patient.[facility] HospitalIn the event this information is protected by the Federal Confidentiality of Alcohol and Drug Abuse Patient Records regulations: The Federal rules restrict any use of the information to criminally investigate or prosecute any alcohol or drug abuse patient.[facility] HospitalIn the event this information is protected by the Federal Confidentiality of Alcohol and Drug Abuse Patient Records regulations: The Federal rules restrict any use of the information to criminally investigate or prosecute any alcohol or drug abuse patient.[facility] HospitalIn the event this information is protected by the Federal Confidentiality of Alcohol and Drug Abuse Patient Records regulations: The Federal rules restrict any use of the information to criminally investigate or prosecute any alcohol or drug abuse patient.[facility] HospitalIn the event this information is protected by the Federal Confidentiality of Alcohol and Drug Abuse Patient Records regulations: The Federal rules restrict any use of the information to criminally investigate or prosecute any alcohol or drug abuse patient.[facility] HospitalIn the event this information is protected by the Federal Confidentiality of Alcohol and Drug Abuse Patient Records regulations: The Federal rules restrict any use of the information to criminally investigate or prosecute any alcohol or drug abuse patient.[facility] HospitalIn the event this information is protected by the Federal Confidentiality of Alcohol and Drug Abuse Patient Records regulations: The Federal rules restrict any use of the information to criminally investigate or prosecute any alcohol or drug abuse patient.[facility] HospitalIn the event this information is protected by the Federal Confidentiality of Alcohol and Drug Abuse Patient Records regulations: The Federal rules restrict any use of the information to criminally investigate or prosecute any alcohol or drug abuse patient.[facility] HospitalIn the event this information is protected by the Federal Confidentiality of Alcohol and Drug Abuse Patient Records regulations: The Federal rules restrict any use of the information to criminally investigate or prosecute any alcohol or drug abuse patient.[facility] HospitalIn the event this information is protected by the Federal Confidentiality of Alcohol and Drug Abuse Patient Records regulations: The Federal rules restrict any use of the information to criminally investigate or prosecute any alcohol or drug abuse patient.[facility] HospitalIn the event this information is protected by the Federal Confidentiality of Alcohol and Drug Abuse Patient Records regulations: The Federal rules restrict any use of the information to criminally investigate or prosecute any alcohol or drug abuse patient.[facility] HospitalIn the event this information is protected by the Federal Confidentiality of Alcohol and Drug Abuse Patient Records regulations: The Federal rules restrict any use of the information to criminally investigate or prosecute any alcohol or drug abuse patient.[facility] HospitalIn the event this information is protected by the Federal Confidentiality of Alcohol and Drug Abuse Patient Records regulations: The Federal rules restrict any use of the information to criminally investigate or prosecute any alcohol or drug abuse patient.[facility] HospitalIn the event this information is protected by the Federal Confidentiality of Alcohol and Drug Abuse Patient Records regulations: The Federal rules restrict any use of the information to criminally investigate or prosecute any alcohol or drug abuse patient.[facility] HospitalIn the event this information is protected by the Federal Confidentiality of Alcohol and Drug Abuse Patient Records regulations: The Federal rules restrict any use of the information to criminally investigate or prosecute any alcohol or drug abuse patient.[facility] HospitalIn the event this information is protected by the Federal Confidentiality of Alcohol and Drug Abuse Patient Records regulations: The Federal rules restrict any use of the information to criminally investigate or prosecute any alcohol or drug abuse patient.[facility] HospitalIn the event this information is protected by the Federal Confidentiality of Alcohol and Drug Abuse Patient Records regulations: The Federal rules restrict any use of the information to criminally investigate or prosecute any alcohol or drug abuse patient.[facility] HospitalIn the event this information is protected by the Federal Confidentiality of Alcohol and Drug Abuse Patient Records regulations: The Federal rules restrict any use of the information to criminally investigate or prosecute any alcohol or drug abuse patient.[facility] HospitalIn the event this information is protected by the Federal Confidentiality of Alcohol and Drug Abuse Patient Records regulations: The Federal rules restrict any use of the information to criminally investigate or prosecute any alcohol or drug abuse patient.[facility] HospitalIn the event this information is protected by the Federal Confidentiality of Alcohol and Drug Abuse Patient Records regulations: The Federal rules restrict any use of the information to criminally investigate or prosecute any alcohol or drug abuse patient.[facility] HospitalIn the event this information is protected by the Federal Confidentiality of Alcohol and Drug Abuse Patient Records regulations: The Federal rules restrict any use of the information to criminally investigate or prosecute any alcohol or drug abuse patient.Grant HospitalIn the event this information is protected by the Federal Confidentiality of Alcohol and Drug Abuse Patient Records regulations: The Federal rules restrict any use of the information to criminally investigate or prosecute any alcohol or drug abuse patient.[facility] HospitalIn the event this information is protected by the Federal Confidentiality of Alcohol and Drug Abuse Patient Records regulations: The Federal rules restrict any use of the information to criminally investigate or prosecute any alcohol or drug abuse patient.[facility] HospitalIn the event this information is protected by the Federal Confidentiality of Alcohol and Drug Abuse Patient Records regulations: The Federal rules restrict any use of the information to criminally investigate or prosecute any alcohol or drug abuse patient.[facility] HospitalIn the event this information is protected by the Federal Confidentiality of Alcohol and Drug Abuse Patient Records regulations: The Federal rules restrict any use of the information to criminally investigate or prosecute any alcohol or drug abuse patient.[facility] HospitalIn the event this information is protected by the Federal Confidentiality of Alcohol and Drug Abuse Patient Records regulations: The Federal rules restrict any use of the information to criminally investigate or prosecute any alcohol or drug abuse patient.[facility] HospitalIn the event this information is protected by the Federal Confidentiality of Alcohol and Drug Abuse Patient Records regulations: The Federal rules restrict any use of the information to criminally investigate or prosecute any alcohol or drug abuse patient.[facility] HospitalIn the event this information is protected by the Federal Confidentiality of Alcohol and Drug Abuse Patient Records regulations: The Federal rules restrict any use of the information to criminally investigate or prosecute any alcohol or drug abuse patient.[facility] HospitalIn the event this information is protected by the Federal Confidentiality of Alcohol and Drug Abuse Patient Records regulations: The Federal rules restrict any use of the information to criminally investigate or prosecute any alcohol or drug abuse patient.[facility] HospitalIn the event this information is protected by the Federal Confidentiality of Alcohol and Drug Abuse Patient Records regulations: The Federal rules restrict any use of the information to criminally investigate or prosecute any alcohol or drug abuse patient.[facility] HospitalIn the event this information is protected by the Federal Confidentiality of Alcohol and Drug Abuse Patient Records regulations: The Federal rules restrict any use of the information to criminally investigate or prosecute any alcohol or drug abuse patient.[facility] HospitalIn the event this information is protected by the Federal Confidentiality of Alcohol and Drug Abuse Patient Records regulations: The Federal rules restrict any use of the information to criminally investigate or prosecute any alcohol or drug abuse patient.[facility] HospitalIn the event this information is protected by the Federal Confidentiality of Alcohol and Drug Abuse Patient Records regulations: The Federal rules restrict any use of the information to criminally investigate or prosecute any alcohol or drug abuse patient.[facility] HospitalIn the event this information is protected by the Federal Confidentiality of Alcohol and Drug Abuse Patient Records regulations: The Federal rules restrict any use of the information to criminally investigate or prosecute any alcohol or drug abuse patient.[facility] HospitalIn the event this information is protected by the Federal Confidentiality of Alcohol and Drug Abuse Patient Records regulations: The Federal rules restrict any use of the information to criminally investigate or prosecute any alcohol or drug abuse patient.[facility] HospitalIn the event this information is protected by the Federal Confidentiality of Alcohol and Drug Abuse Patient Records regulations: The Federal rules restrict any use of the information to criminally investigate or prosecute any alcohol or drug abuse patient.[facility] HospitalIn the event this information is protected by the Federal Confidentiality of Alcohol and Drug Abuse Patient Records regulations: The Federal rules restrict any use of the information to criminally investigate or prosecute any alcohol or drug abuse patient.[facility] HospitalIn the event this information is protected by the Federal Confidentiality of Alcohol and Drug Abuse Patient Records regulations: The Federal rules restrict any use of the information to criminally investigate or prosecute any alcohol or drug abuse patient.[facility] HospitalIn the event this information is protected by the Federal Confidentiality of Alcohol and Drug Abuse Patient Records regulations: The Federal rules restrict any use of the information to criminally investigate or prosecute any alcohol or drug abuse patient.[facility] HospitalIn the event this information is protected by the Federal Confidentiality of Alcohol and Drug Abuse Patient Records regulations: The Federal rules restrict any use of the information to criminally investigate or prosecute any alcohol or drug abuse patient.[facility] HospitalIn the event this information is protected by the Federal Confidentiality of Alcohol and Drug Abuse Patient Records regulations: The Federal rules restrict any use of the information to criminally investigate or prosecute any alcohol or drug abuse patient.[facility] HospitalIn the event this information is protected by the Federal Confidentiality of Alcohol and Drug Abuse Patient Records regulations: The Federal rules restrict any use of the information to criminally investigate or prosecute any alcohol or drug abuse patient.[facility] HospitalIn the event this information is protected by the Federal Confidentiality of Alcohol and Drug Abuse Patient Records regulations: The Federal rules restrict any use of the information to criminally investigate or prosecute any alcohol or drug abuse patient.[facility] HospitalIn the event this information is protected by the Federal Confidentiality of Alcohol and Drug Abuse Patient Records regulations: The Federal rules restrict any use of the information to criminally investigate or prosecute any alcohol or drug abuse patient.[facility] HospitalIn the event this information is protected by the Federal Confidentiality of Alcohol and Drug Abuse Patient Records regulations: The Federal rules restrict any use of the information to criminally investigate or prosecute any alcohol or drug abuse patient.[facility] HospitalIn the event this information is protected by the Federal Confidentiality of Alcohol and Drug Abuse Patient Records regulations: The Federal rules restrict any use of the information to criminally investigate or prosecute any alcohol or drug abuse patient.[facility] HospitalIn the event this information is protected by the Federal Confidentiality of Alcohol and Drug Abuse Patient Records regulations: The Federal rules restrict any use of the information to criminally investigate or prosecute any alcohol or drug abuse patient.[facility] HospitalIn the event this information is protected by the Federal Confidentiality of Alcohol and Drug Abuse Patient Records regulations: The Federal rules restrict any use of the information to criminally investigate or prosecute any alcohol or drug abuse patient.[facility] Care Teams (unrecognized sec tion and content) Summer Law Clerk Relationship Specialty Start Date End Date Janet Zafar, TALENT MANAGEMENT SPECIALIST PCP - General Internal Medicine 09/21/16 Summer Law Clerk Relationship Specialty Start Date End Date Janet Zafar, TALENT MANAGEMENT SPECIALIST PCP - General Internal Medicine 09/21/16 Summer Law Clerk Relationship Specialty Start Date End Date Janet Zafar, TALENT MANAGEMENT SPECIALIST PCP - General Internal Medicine 09/21/16 Summer Law Clerk Relationship Specialty Start Date End Date Janet Zafar, TALENT MANAGEMENT SPECIALIST PCP - General Internal Medicine 09/21/16 Summer Law Clerk Relationship Specialty Start Date End Date Janet Zafar, TALENT MANAGEMENT SPECIALIST PCP - General Internal Medicine 09/21/16 Summer Law Clerk Relationship Specialty Start Date End Date Janet Zafar, TALENT MANAGEMENT SPECIALIST PCP - General Internal Medicine 09/21/16 Summer Law Clerk Relationship Specialty Start Date End Date Janet Zafar, TALENT MANAGEMENT SPECIALIST PCP - General Internal Medicine 09/21/16 Summer Law Clerk Relationship Specialty Start Date End Date Janet Zafar, TALENT MANAGEMENT SPECIALIST PCP - General Internal Medicine 09/21/16 Summer Law Clerk Relationship Specialty Start Date End Date Janet Zafar, TALENT MANAGEMENT SPECIALIST PCP - General Internal Medicine 09/21/16 Summer Law Clerk Relationship Specialty Start Date End Date Janet Zafar, TALENT MANAGEMENT SPECIALIST PCP - General Internal Medicine 09/21/16 Summer Law Clerk Relationship Specialty Start Date End Date Janet Zafar, TALENT MANAGEMENT SPECIALIST PCP - General Internal Medicine 09/21/16 Summer Law Clerk Relationship Specialty Start Date End Date Janet Zafar TALENT MANAGEMENT SPECIALIST PCP - General Internal Medicine 09/21/16 Team Status: Active Member Role Status Dates Dr. Danisha Briggs MD Family Provider Active Dr. Danisha Briggs MD Primary Care Provider Active Team Status: Inactive Member Role Status Dates Dr. Danisha Briggs MD Primary Care Provider, Refer ring Provider Active Ashley Montiel PRODUCT SAFETY CONSULTANT, PRODUCT SAFETY CONSULTANT-C Attending Provider Active Team Status: Inactive Member Role Status Dates Dr. Danisha Briggs MD Primary Care Provider Active Ashley Montiel NP, PRODUCT SAFETY CONSULTANT-C Attending Provider, Referring Prov ider Active Team Status: Inactive Member Role Status Dates Dr. Danisha Briggs MD Primary Care Provider Active Dr. Liliana Wyman MD Attending Provider, Referring Provider Active Summer Law Clerk Relationship Specialty Start Date End Date Janet Zafar, TALENT MANAGEMENT SPECIALIST PCP - General Internal Medicine 09/21/16 Summer Law Clerk Relationship Specialty Start Date End Date Janet Zafar, TALENT MANAGEMENT SPECIALIST PCP - General Internal Medicine 09/21/16 Summer Law Clerk Relationship Specialty Start Date End Date Janet Zafar CNP PCP - General Internal Medicine 09/21/16 Summer Law Clerk Relationship Specialty Start Date End Date Janet Zafar CNP PCP - General Internal Medicine 09/21/16 Team Status: Inactive Member Role Status Dates Dr. Danisha Briggs MD Primary Care Provider Active Dr. Shayan Shearer MD Attending Provider, Refe rring Provider Active Dr. Liliana Wyman MD Other Provider Active Summer Law Clerk Relationship Specialty Start Date End Date Janet Zafar CNP PCP - General Internal Medicine 09/21/16 Summer Law Clerk Relationship Specialty Start Date End Date Janet Zafar CNP PCP - General Internal Medicine 09/21/16 Summer Law Clerk Relationship Specialty Start Date End Date Janet Zafar CNP PCP - General Internal Medicine 09/21/16 Summer Law Clerk Relationship Specialty Start Date End Date Janet Zafar CNP PCP - General Internal Medicine 09/21/16 Summer Law Clerk Relationship Specialty Start Date End Date Janet Zafar CNP PCP - General Internal Medicine 09/21/16 Summer Law Clerk Relationship Specialty Start Date End Date Janet Zafar CNP PCP - General Internal Medicine 09/21/16 Summer Law Clerk Relationship Specialty Start Date End Date Janet Zafar CNP PCP - General Internal Medicine 09/21/16 Summer Law Clerk Relationship Specialty Start Date End Date Janet Zafar CNP PCP - General Internal Medicine 09/21/16 Summer Law Clerk Relationship Specialty Start Date End Date Janet Zafar CNP PCP - General Internal Medicine 09/21/16 Summer Law Clerk Relationship Specialty Start Date End Date Janet Zafar CNP PCP - General Internal Medicine 09/21/16 Summer Law Clerk Relationship Specialty Start Date End Date Janet Zafar CNP PCP - General Internal Medicine 09/21/16 Summer Law Clerk Relationship Specialty Start Date End Date Janet Zafar CNP PCP - General Internal Medicine 09/21/16 Summer Law Clerk Relationship Specialty Start Date End Date Janet Zafar CNP PCP - General Internal Medicine 09/21/16 Summer Law Clerk Relationship Specialty Start Date End Date Janet Zafar CNP PCP - General Internal Medicine 09/21/16 Team Status: Active Member Role Status Dates Dr. Danisha Briggs MD Family Provider Active Ashley HENDRICKS, PRODUCT SAFETY CONSULTANT-C Primary Care Provider Active Team Status: Inactive Member Role Status Dates Dr. Danisha Briggs MD Primary Care Provider, Refer ring Provider Active Elsie Ferris PRODUCT SAFETY CONSULTANT, PRODUCT SAFETY CONSULTANT-C Attending Provider Active Team Status: Inactive Member Role Status Dates Dr. Danisha Briggs MD Primary Care Provider Active Elsie Ferris PRODUCT SAFETY CONSULTANT, PRODUCT SAFETY CONSULTANT-C Attending Provider, Referring Provider Active Team Status: Active Member Role Status Dates Elsie Ferris PRODUCT SAFETY CONSULTANT, PRODUCT SAFETY CONSULTANT-C Attending Provider, Referring Provider Active Ashley Montiel VSC, PRODUCT SAFETY CONSULTANT-C Primary Care Provider Active Team Status: Inactive Member Role Status Dates Ashley Montiel PRODUCT SAFETY CONSULTANT, PRODUCT SAFETY CONSULTANT-C Primary Care Provider Active Dr. Liliana Wyman MD Attending Provider, Referring Provider Active Team Status: Inactive Member Role Status Dates Elsie Ferris PRODUCT SAFETY CONSULTANT, PRODUCT SAFETY CONSULTANT-C Attending Provider, Referring Provider Active Ashley Montiel VSC, PRODUCT SAFETY CONSULTANT-C Primary Care Provider Active Summer Law Clerk Relationship Specialty Start Date End Date Janet Zafar CNP PCP - General Internal Medicine 09/21/16 Summer Law Clerk Relationship Specialty Start Date End Date Janet Zafar CNP PCP - General Internal Medicine 09/21/16 Summer Law Clerk Relationship Specialty Start Date End Date Janet Zafar CNP PCP - General Internal Medicine 09/21/16 Summer Law Clerk Relationship Specialty Start Date End Date Janet Zafar CNP PCP - General Internal Medicine 09/21/16 Summer Law Clerk Relationship Specialty Start Date End Date Janet Zafar CNP PCP - General Internal Medicine 09/21/16 Summer Law Clerk Relationship Specialty Start Date End Date Janet Zafar CNP PCP - General Internal Medicine 09/21/16 Summer Law Clerk Relationship Specialty Start Date End Date Generic Provider, [place] [address] PCP - General Enrolled Agent 09/11/23 Summer Law Clerk Relationship Specialty Start Date End Date Generic Provider, [place] [address] PCP - General Enrolled Agent 09/11/23 Summer Law Clerk Relationship Specialty Start Date End Date Janet Zafar CNP PCP - General Internal Medicine 09/21/16 Summer Law Clerk Relationship Specialty Start Date End Date Janet Zafar CNP PCP - General Internal Medicine 09/21/16 Summer Law Clerk Relationship Specialty Start Date End Date Janet Zafar CNP PCP - General Internal Medicine 09/21/16 Summer Law Clerk Relationship Specialty Start Date End Date Janet Zafar CNP PCP - General Internal Medicine 09/21/16 Team Status: Active Member Role Status Dates Ashley Montiel VSC, PRODUCT SAFETY CONSULTANT-C Primary Care Provider Active Team Status: Inactive Member Role Status Dates Ashley Montiel VSC, PRODUCT SAFETY CONSULTANT-C Primary Care Provider Active Start: February 16, 2024 End: February 16, 2024 Ashley HENDRICKS, PRODUCT SAFETY CONSULTANT-C Attending Provider Active S tart: February 16, 2024 End: February 16, 2024 Team Status: Inactive Member Role Status Dates Ashley HENDRICKS, PRODUCT SAFETY CONSULTANT-C Primary Care Provider Active Start: March 13, 2024 End: March 13, 2024 Dr. Liliana Wyman MD Attending Provider Active Start: March 13, 2024 End: March 13, 2024 Dr. Liliana Wyman MD Referring Provider Active Start: March 13, 2024 End: March 13, 2024 Team Status: Inactive Member Role Status Dates Dr. Danisha Briggs MD Referring Provider Active Start: April 02, 2024 End: April 02, 2024 Elsie Ferris NP, PRODUCT SAFETY CONSULTANT-C Attending Provider Active Start: April 02, 2024 End: April 02, 2024 Ashley LEÓNC, PRODUCT SAFETY CONSULTANT-C Primary Care Provider Active Start: April 02, 2024 End: April 02, 2024 Team Status: Inactive Member Role Status Dates Ashley LEÓNC, PRODUCT SAFETY CONSULTANT-C Primary Care Provider Active Start: June 07, 2024 End: June 07, 2024 Dr. Liliana Wyman MD Attending Provider Active Start: June 07, 2024 End: June 07, 2024 Dr. Liliana Wyman MD Referring Provider Active Start: June 07, 2024 End: June 07, 2024 Summer Law Clerk Relationship Specialty Start Date End Date Janet Zafar CNP PCP - General Internal Medicine 09/21/16 Team Status: Active Member Role/Relationship Status Dates Ashley Montiel VSC, PRODUCT SAFETY CONSULTANT-C Primary Care Provider Active Team Status: Inactive Member Role/Relationship Status Dates Ashley LEÓNC, PRODUCT SAFETY CONSULTANT-C Primary Care Provider Active Start: June 07, 2024 End: June 07, 2024 Dr. Liliana Wyman MD Attending Provider Active Start: June 07, 2024 End: June 07, 2024 Dr. Liliana Wyman MD Referring Provider Active Start: June 07, 2024 End: June 07, 2024 Team Status: Inactive Member Role/Relationship Status Dates Ashley LEÓNC, PRODUCT SAFETY CONSULTANT-C Primary Care Provider Active Start: August 27, 2024 End: August 27, 2024 Dr. Liliana Wyman MD Attending Provider Active Start: August 27, 2024 End: August 27, 2024 Dr. Liliana Wyman MD Referring Provider Active Start: August 27, 2024 End: August 27, 2024 Summer Law Clerk Relationship Specialty Start Date End Date CharismaJanet EVY PCP - General Internal Medicine 09/21/16 Goals (unrecognized section and content) Goals may be documented in a n alternate sectionGoals may be documented in an alternate sectionGoals may be documented in an alternate sectionGoals may be documented in an alternate sectionGoals may be documented in an alternate sectionGoals may be documented in an alternate sectionGoals may be documented in an alternate sectionGoals may be documented in an alternate sectionGoals may be documented in an alternate sectionGoals may be documented in an alternate sectionGoals may be documented in an alternate section Scheduled Active and Recently Administ ered Medications (unrecognized section and content) Medication Order 09/09/2023 09/10/2023 09/11/2023 sodium chloride 0.9 % bolus 1,000 mL (COMPLETED) 1,000 mL, intravenous, at 999 mL/hr, Administer over 1 Hours, Once, On 09/11/23 at 1355, For 1 dose 1359 (New Bag - Prov ider: Emma Hyde RN)[id number] (Stopped - Provider: Millie Gonzalez RN) FOR RECORDS PERTAINING TO PATIENTS WHO ARE [...] BE BASED ON THE PRIMARY CLINICAL RECORDS. [employer] provides no warranty or guarantee of the accuracy or completeness of information in this document.
== END | disposition home or self-care (01) ==
PROVIDERS: PCP Nurse Practitioner Family; Visit Provider Nurse Practitioner Family
DX: E11.9 Type 2 diabetes mellitus without complications (principal); E55.9 Vitamin D deficiency, unspecified; G25.81 Restless legs syndrome
CPT/HCPCS: 36415; 80061; 82043; 82306; 82607; 82728; 83540; 83550; 84443

== ENCOUNTER → 2024-11-01 | Outpatient (CLI) | payer MEDICARE, SELFPAY ==
--- NOTE | 2024-11-01 08:24 | BI_ITS ---
EXAM: SCRN MAMM (CAD)W/BERTHA BILAT DATE: 11/01/2024 CLINICAL HISTORY: F, Age 64 y/o , SCREENING No family history. TECHNIQUE: Procedure Code: [id number] Modality: MG Procedure: SCRN MAMM (CAD)W/BERTHA BILAT COMPARISON: Prior exam(s) dated April 11, 2023.. FINDINGS: TISSUE DENSITY: There are scattered areas of fibroglandular density. Bilateral Breast Mammographic Findings: No significant masses, calcifications or other abnormalities are identified. Stable bilateral fat containing axillary lymph nodes. No suspicious masses, areas of developing architectural distortion, or suspicious calcifications. There has been no significant interval change. BI/SCRN MAMM (CAD)W/BERTHA BILAT IMPRESSION: Stable bilateral screening mammogram. OVERALL FINAL ASSESSMENT BI-RADS 2: BENIGN RECOMMENDATION: Routine annual follow-up in 1 Year A letter with findings and recommendations will be mailed to the patient. Reading Location: [facility]
== END | disposition home or self-care (01) ==
LOC: OPBI 08:22
PROVIDERS: PCP Nurse Practitioner Family; Referring Provider Nurse Practitioner Family; Visit Provider Nurse Practitioner Family
DX: Z12.31 Encounter for screening mammogram for malignant neoplasm of breast (principal)
CPT/HCPCS: 77063; 77067

== ENCOUNTER → 2024-11-27 | Outpatient (CLI) | payer MEDICARE, SELFPAY ==
[2024-11-27 15:01] LABS: Hematocrit 38.9 % (37-47); Hemoglobin 12.5 g/dL (12.0-15.0); Immature Granulocytes Count 0.030 X10^3/uL (0.0-0.0); Mean Corp Hgb Conc 32.1 g/dL (32-36); Mean Corpuscular Volume 93.1 fL (81-99); Mean Platelet Vol. 11.3 fl (6.2-12.0); NRBC Flagged by Analyzer 0 % (0-5); Platelet Count 196 K/mm3 (150-450); RBC Distribution Width CV 13.2 % (11.6-14.6); RBC Distribution Width SD 45.4 fl (35.1-43.9); Red Blood Count 4.18 M/mm3 (4.2-5.4); White Blood Count 6.0 K/mm3 (4.4-11.0)
[2024-11-27 15:29] LABS: AST(SGOT) 25 U/L (<=31); Alanine Aminotransfer ALT/SGPT 24 U/L (<=34); Albumin, Serum 4.1 g/dL (3.4-4.8); Alkaline Phosphatase 124 U/L (35-104); Anion Gap 11 (5-15); BUN 28 mg/dL (4-19); BUN/Creat Ratio 23.0 RATIO (10-20); Calcium,Total 8.9 mg/dL (7.6-11.0); Carbon Dioxide 25.2 mmol/L (21.0-32.0); Chloride 105 mmol/L (98-108); Globulin 2.6 g/dL (2.2-4.2); Glucose 121 mg/dL (70-99); Potassium 4.4 mmol/L (3.3-5.1)
== END | disposition home or self-care (01) ==
LOC: MTLAB 11:42
PROVIDERS: PCP Nurse Practitioner Family; Referring Provider Internal Medicine Rheumatology; Visit Provider Internal Medicine Rheumatology
DX: M06.4 Inflammatory polyarthropathy (principal); M79.7 Fibromyalgia; R76.89 Other specified abnormal immunological findings in serum
CPT/HCPCS: 36415; 80053; 85025

== ENCOUNTER → 2024-12-12 | Outpatient (CLI) | payer MEDICARE, SELFPAY | END | disposition home or self-care (01) | LOC: VSLAB 10:06 | PROVIDERS: PCP Nurse Practitioner Family; Visit Provider Nurse Practitioner Family | DX: E03.9 Hypothyroidism, unspecified (principal) | CPT/HCPCS: 36415; 84439; 84443 ==